=== PATIENT | male | born 1950 | race Caucasian/White ===

== ENCOUNTER → 2017-10-28 07:17 | Outpatient (CLI) | payer OTHER, SELFPAY ==
--- NOTE | 2017-10-28 07:32 | CT_ITS ---
STUDY: CT LEFT SHOULDER REASON FOR EXAM: Male, 67 years old. Left shoulder pain. History of prior left shoulder surgeries. RADIATION DOSAGE (If Supplied By Facility): CTDIvol = ( 26.04 ) mGy, DLP = ( 1127.92 ) mGycm TECHNIQUE: The patient was scanned in a multi detector CT scanner. High resolution transaxial imaging was performed without and with the administration of intravenous contrast material. Sagittal and coronal images were reconstructed. Individualized dose optimization techniques were used for this CT. COMPARISON: None. FINDINGS: There is mild osteoarthritis of the glenohumeral articulation, with mild articular joint space narrowing and mild osteoarthritic spurring. Normal glenoid rim, neck and visualized scapula. A metallic anchor is seen in the region of the greater tuberosity of the proximal left humerus in keeping with prior rotator cuff surgery. Normal coracoid process. Normal visualized lateral clavicle. There is mild osteoarthritis with articular joint space narrowing. There is a Type II morphology (curved), with a neutral orientation. Normal visualized muscles and soft tissue structures. CT/Extremity Upper W/WO Contrast IMPRESSION: Findings suggestive of prior rotator cuff surgery. Mild degree of degenerative changes of the acromial clavicular joint and the glenohumeral joint. No mass lesion is seen. Electronically Signed: Rick Casillas MD at 13:22 EDT Tel [phone], Service support ,
[2017-10-28 08:10] LABS: CREATININE FINGERSTICK 1.1 mg/dL (0.70-1.30); EGFR FINGERSTICK > 60.0000 mL/min (>60)
== END ==
PROVIDERS: Family Provider Family Medicine; PCP Family Medicine; Visit Provider Orthopaedic Surgery
DX: M25.519 Pain in unspecified shoulder (principal)
CPT/HCPCS: 73202; Q9967

== ENCOUNTER 2018-01-04 12:00 | Outpatient (RCR) | payer OTHER, SELFPAY ==
--- NOTE | 2017-12-10 12:56 | HP.PTEVAL_ITS ---
Patient's Visit Information DARRYN ROMAN Jr. is a 67 year old M referred to Physical Therapy by JUSTIN ADAMES with a diagnosis of L shoulder arthroscopy. Date of Evaluation: 12/10/17 Physical Therapist: Mike Fung PT, - Visit Plan Frequency: 2x /Week Duration: 2 Months Plan: Follow Protocal. - Subjective Subjective: DOS: 11/26/17. DOI: 03/20/95. Pt reports while he was at work, a large piece of aluiminum fell on his L shoulder which resulted in a fractured L humerus and a cut. Pt reports over time, he has had 4 surgeries to repair this injury. Pt reports he continues to have metal shavings surface to his skin. Pt reports he has also had to have surgical decompression performed 2 times in order to aid with decreasing his pain. Pt reports he continued to work there at [employer] for 35 years. Pt reports he now works at a [employer] Pt reports since his last surgery, he is starting to feel a little better. No T or N at this time. Sleep diff secondary to pain. R hand dom. Pt reports he is unable to perform ma ny ADL's, and cant perform any overhead activity. 8/10 at rest, 10/10 at worst. - Pain L shoulder Pain Intensity (Out of 10): 8 Pain Intensity Range: 10 - Objective Neuro: B UE sensation is WNL to light touch. B bicepital reflex= 1/3. Observation: Incisions are still healing. No obvious signs of infection. ROM: R shoulder flex= 150, abd= 150, ER= 40, IR WNL; L shoulder flex= 50, abd= 30, ER= 20, IR moderately limited. MMT: R shoulder grossly 4/5 throughout while - Goals Goal 1:: Decrease L shoulder pain x 50% to aid with sleep Goal Time Frame: 6-8 Weeks Goal 2:: Increase L shoulder flex and abd ROM x 50 degrees to aid with overhead activity Goal Time Frame: 6-8 Weeks Goal 3:: Increase L shoulder strength x 1 grade to aid with RTW Goal Time Frame: 6-8 Weeks Goal 4:: I with HEP Goal Time Frame: 6-8 Weeks - Rehabilitation Potential Physical Therapy Diagnosis: L shoulder pain, weakness, and limited ROM secondary to L shoulder arthroscopy Rehabilitation Potential: Good - Anticipated Interventions Patient/Client Instruction: Educate patient on: Condition, Plan of Care For the Purpose of:: To improve self management Therapeutic Exercise to Include: Strength training, Endurance training, Postural training, Active ROM, Scapular Strength/Stabilization For the Purpose of:: To decrease pain, To increase ROM, To improve muscle performance and motor function Cryotherapy (ice pack, ice massage): Yes For the Purpose of:: To decrease pain Thank you for the opportunity to evaluate your patient. For Medicare and Medicare HMO plans, please review the plan of care and approve it. It will need to be FAXED BACK to us at [phone] for Medicare purposes. Please let me know if there are questions or concerns regarding this plan of care. Physician Signature: Date:
--- NOTE | 2018-01-13 09:42 | HP.PT.NRP ---
HP - Discharge Summary (1) - Patient Information DARRYN ROMAN Jr. was seen in my office for initial evaluation on 12/10/17. The following Plan of Care was established for this patient: Initial Frequency: 2x /Week Initial Duration: 2 Months - Anticipated Interventions Patient/Client Instruction: Educate patient on: Condition, Plan of Care For the Purpose of:: To improve self management Therapeutic Exercise to Include: Strength training, Endurance training, Postural training, Active ROM, Scapular Strength/Stabilization For the Purpose of:: To decrease pain, To increase ROM, To improve muscle performance and motor function Cryotherapy (ice pack, ice massage): Yes For the Purpose of:: To decrease pain This patient was last seen in our office . Pertinent comments regarding their Physical therapy will appear below: Pt phoned our clinic on the date of 01/05/18 to report that he has been released to return to work, and that he wanted to be discharged at that time. At this point I will be discontinuing this patient from physical therapy. I would be happy to see this patient again in the future if found appropriate by the physician. Thank you! Mike Fung, PT,
== END 2018-01-04 19:00 | disposition home or self-care (01) ==
LOC: PT 12:00
PROVIDERS: Family Provider Family Medicine; PCP Family Medicine
DX: M25.519 Pain in unspecified shoulder (principal)
CPT/HCPCS: 97110; 97162; 97530

== ENCOUNTER 2018-08-24 13:47 | Observation (INO) | payer MEDICARE, OTHER, SELFPAY ==
[2018-08-24] VITALS (12 sets, daily range): BP systolic 133–168; BP diastolic 74–98; PULSE 70–83; RESP 9–18; TEMP 36.5–37; O2SAT 92–100; BMI 23.7; BMI 22.9
--- NOTE | 2018-08-24 13:59 | CT_ITS ---
STUDY: CT BRAIN WITHOUT CONTRAST REASON FOR EXAM: Male, 68 years old. Near syncope RADIATION DOSAGE (If Supplied By Facility): CTDIvol = ( 44.99 ) mGy, DLP = ( 812.98 ) mGycm TECHNIQUE: Transaxial CT imaging of the brain was performed without administration of intravenous contrast material. Individualized dose optimization techniques were used for this CT. COMPARISON: None. FINDINGS: There is no acute bleed or infarct. There are normal white matter tracts. The ventricles are normal in configuration. There is no hydrocephalus. The visualized paranasal sinuses are clear. The mastoid air cells are well aerated. There is no skull fracture. CT/Brain/Head without Contrast IMPRESSION: No acute intracranial abnormality. Electronically Signed: Flaco Kraft, at 14:29 EDT Tel , Service support ,
--- NOTE | 2018-08-24 14:00 | RAD_ITS ---
STUDY: X-RAY CHEST REASON FOR EXAM: Male, 68 years old. Syncope. Dyspnea. TECHNIQUE: Single AP portable view of the chest. COMPARISON: Comparison is made with prior study dated February 03, 2014. FINDINGS: EKG electrodes are seen. There now is evidence of bibasilar pulmonary infiltrates slightly worse on the left side. There is no demonstrated pleural abnormality. Normal size heart. Normal mediastinum and bart. Normal visualized pulmonary arteries. There is atherosclerotic tortuosity of the aortic arch and descending thoracic aorta. There are degenerative changes of the visualized thoracic spine. Prior fusion in the lower cervical spine. Degenerative changes of the thoracic spine. There is no demonstrated abnormality of the visualized soft tissue structures of the upper abdomen. RAD/Chest 1 View (Portable) IMPRESSION: Bibasilar infiltrates. Follow-up is recommended. Electronically Signed: Rikc Casillas, at 14:38 EDT , Service support ,
--- NOTE | 2018-08-24 14:00 | EKG12_ITS ---
Test Reason : SYNCOPE Blood Pressure : / mmHG Vent. Rate : 077 BPM Atrial Rate : 077 BPM P-R Int : 164 ms QRS Dur : 088 ms QT Int : 380 ms P-R-T Axes : 079 071 083 degrees QTc Int : 430 ms Normal sinus rhythm Normal ECG Confirmed by JOSE MIGUEL PRICE ([id number]), publication editor ZENAIDA LAMAS ([id number]) on 08/26/2018 1:42:28 PM Referred By: BROOKE Confirmed By:JOSE MIGUEL PRICE
[2018-08-24 14:14] LABS: Absolute Lymphocyte Count 2.65 X10^3/ul (0.83-4.51); Absolute Neutrophil Count 3.9 X10^3/uL (2.0-7.7); Basophil# 0.05 X10^3/uL; Basophil% 0.7 % (0-1); Eosinophil# 0.28 X10^3/uL; Eosinophils% 3.7 % (0-5); Hemoglobin 15.5 g/dl (13.0-16.5); Lymphocyte # 2.65 X10^3/ul (4.0); Lymphocyte % 34.9 % (19-41); Mean Corp Hgb Conc 34.4 g/gl (32-36); Mean Corpuscular Hgb 34.3 pg (27.0-32.0); Mean Corpuscular Volume 99.6 fL (80-94); Mean Platelet Vol. 9.3 fl (6.2-12.0); Monocyte# 0.74 X10^3/uL; Monocyte% 9.7 % (0-10); Neutrophil # 3.85 X10^3/uL (2.7-7.7); Neutrophil % 50.7 % (47-70); Platelet Count 274 K/mm3 (150-450); RBC Distribution Width CV 12.8 % (11.6-14.6); RBC Distribution Width SD 46.1 fl (35.1-43.9); Red Blood Count 4.52 M/mm3 (4.6-6.2); White Blood Count 7.6 K/mm3 (4.4-11.0)
[2018-08-24 14:18] LABS: POSITIVE COUNT NO; POSITIVE DIFFERENTIAL NO; POSITIVE MORPHOLOGY NO
[2018-08-24 14:30] LABS: Anion Gap 9 (5-15); BUN 16 mg/dL (7-18); BUN/Creat Ratio 10.3 RATIO (10-20); Calcium,Total 9.1 mg/dL (8.5-10.1); Chloride 106 mmol/L (98-107); Creatinine, Serum 1.55 mg/dL (0.70-1.30); EST Glomerular Filtration Rate 48 mL/min (>60); Est Glom Filt Rate - Afr Amer 58 mL/min (>60); Estimated Creatinine Clearance 45.35 ml/min; Glucose 90 mg/dL (74-106); Potassium 4.8 mmol/L (3.5-5.1); Sodium Level 138 mmol/L (136-145)
[2018-08-24] MEDS: Ipratropium/Albuterol Sulfate 3 ML AMPUL.NEB INHALATION ×3 (14:37→23:55)
[2018-08-24] MEDS: 0.9% Normal Saline 1,000 ML 150 ML IV (14:50)
--- NOTE | 2018-08-24 15:57 | NURSING ---
DR REDD FOR DR CASTREJON
--- NOTE | 2018-08-24 15:59 | ED.VISSUMM ---
- ER Visit Summary Date of Service: 08/24/18 Chief Complaint: [Syncope and confusion] History of Present Illness: The patient is a 68 M [episode that occurred while at work today. 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 EMS was called this patient was disoriented and confused. EMS checked the blood sugar noted that it was 59 and given glucose. On arrival patient is unsure of the events that took place. He is able to tell me that he did not eat breakfast and just drink some tea which is not unusual for him. Patient does describe a mild headache. He has had a mild cough that has been chronic and some white phlegm production but no fevers. Patient denies any chest pain. Patient does have a history of COPD and does use nebulizer on a regular basis. Patient does not use home O2.] Physical Examination: [HEENT-PERRLA, EOMI. Cranial nerves II through XII grossly intact. TMs clear. Mucous membranes moist. No adenopathy. No external evidence of trauma to his head. No C-spine tenderness on palpation. Cardiovascular-regular rate and rhythm without murmur or ectopy Lungs-good aeration bilaterally. Patient has some faint expiratory wheezes. No accessory muscle use or retractions. Neuro fljy-bbpyhp-sq-nose and heel lima testing within normal limits, negative Romberg, negative , Fundi benign Abdomen-normoactive bowel sounds, soft, nontender, no rebound or rigidity, no peritoneal signs. Extremities-intact ?4, normal range of motion, normal pulses, atraumatic] Test Results: [EKG obtained shows sinus rhythm with a ventricular rate 77 bpm with no acute ST segment changes. CBC with differential is normal. Chemistries unremarkable. Troponin is less than 0.015. Alcohol was negative. ABG was unremarkable. Chest x-ray showed bibasilar infiltrates. CT scan of the brain without contrast showed nothing acute.] Emergency Department Course and Treatment: [Patient was kept on monitor and reevaluated at 1545 patient is still somewhat confused and cannot tell me exactly what happened. Patient was asking where he is currently. 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 At this point etiology of his confusion is unclear.] Treatment Plan: [Admit] Disposition: [Admit] Impression: [Syncope Confusion] This note was generated with Wal[employer] dictation software. It may contain incorrect words, spelling, and punctuation that were not noted in review of the chart prior to signing ED Disposition - Plan for ED Patient: Referrals: Cherelle Cutler DO [Primary Care Provider] -
--- NOTE | 2018-08-24 15:59 | NURSING ---
PCU OBS ASHELFAH SYNCOPE, CONFUSION, HYPOGLYCEMIA
[2018-08-24 16:13] LABS: Blood Gas Specimen Type ART
[2018-08-24 16:14] LABS: O2 Delivery Device Room Air; SITE L BRACHIAL; Time Given 1430
[2018-08-24 16:15] LABS: Base Excess -4 mmol/L (-2 to +2); Bicarbonate 20.3 mmol/L (22-26); PO2 73 mmHG (75-100); SO2 95 % (95-99); Total Carbon Dioxide 21 mmol/L; pCO2 30.3 mmHg (35-45); pH 7.43 (7.35-7.45)
--- NOTE | 2018-08-24 16:15 | PCM.HP.STD ---
Problem List (1) Hyperlipidemia Status: Chronic (2) History of heart valve replacement Status: Chronic (3) HTN (hypertension) Status: Chronic (4) COLD (chronic obstructive lung disease) Status: Chronic (5) Benign essential HTN Status: Chronic History of Present Illness Date of Admission: 08/24/18 Chief Complaint: Syncope, confusion. The patient is a 68 year old M with past medical history as mentioned above presented to the emergency room because of syncope and confusion. At this time, patient is alert and oriented x3 but he is very slow in responding to questions. He does not remember what happened but he mentioned that he felt dizzy and then he woke up in the emergency department. 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 EMS was called and reportedly, patient was confused and disoriented. He was found to have blood sugar of 59 mg/dL. He was given 15 g of oral glucose. Apart from mild headache, patient denies any other symptoms. He denied chest pain or shortness of breath. He denied cough or sputum production. He denied abdominal pain, nausea or vomiting. He denied focal arm or leg weakness. He had a history of hypertension which seems to be controlled with metoprolol and lisinopril. He has history of valve replacement as a child long time ago and is not sure which valve was replaced and it is probably a bioprosthetic valve. He has history of COPD and he has been on albuterol as well as DuoNeb nebulizer treatment at home and also has been on Symbicort. He never been on oxygen at home. Patient is a heavy smoker and he drinks alcohol almost every day. In the emergency department, his blood pressure was slightly elevated, other vital signs were stable. His routine blood work was remarkable for creatinine of 1.55 which is chronic, otherwise normal. Blood glucose was 90 mg/dL in the emergency department. EKG revealed normal sinus rhythm, normal MN interval, normal QRS, normal QTC and no acute ischemic changes. Troponin is negative. Blood alcohol level was 10. CT scan brain showed no acute findings. Chest x-ray reviewed by myself and I did not see any acute infiltrate or consolidation. Chest x-ray was read by radiology as bilateral basilar infiltrate. I doubt pneumonia. He is being admitted for syncope likely caused by hypoglycemia. Past Medical History Past Medical History (Chronic Problems): Chronic Problems Hyperlipidemia (Chronic) History of heart valve replacement (Chronic) Tobacco dependence syndrome (Chronic) HTN (hypertension) (Chronic) COLD (chronic obstructive lung disease) (Chronic) Benign essential HTN (Chronic) Allergies azithromycin [From Zithromax] Allergy (Verified 12/23/14 10:25) Swelling Penicillins Allergy (Verified 12/23/14 10:25) Hives shellfish derived Allergy (Verified 12/23/14 10:25) Hives venom-honey bee [bee venom (honey bee)] Allergy (Verified 12/23/14 10:25) Hives chocolate flavor Adverse Reaction (Verified 12/23/14 10:25) Diarrhea Home Medications: Ambulatory Orders Medication Instructions Recorded Aspirin [Aspirin, Baby] 81 mg PO DAILY@0800 02/03/14 Budesonide/Formoterol 160/4.5 2 puff PO BID 02/03/14 [Symbicort 160/4.5 Mcg Inhaler (SP)] Ipratropium/Albuterol Sulfate 3 ml INHALATION Q4H.RT 02/03/14 [Duoneb] Pravastatin [Pravachol] 10 mg PO QHS 02/03/14 Albuterol Sulfate [Ventolin Hfa] 2 puff INHALATION Q4H PRN PRN 08/24/18 Apixaban [Eliquis] 5 mg PO BID 08/24/18 Lisinopril 20 mg PO DAILY 08/24/18 Metoprolol Tartrate 50 mg PO DAILY 08/24/18 Surgical History: - - Valvular replacement 1959--[facility]outh at [facility], unclear valve type, BL inguinal hernia repair, Appendectomy, R arm/wrist surgery, Carpal tunnel surgery BL. Smoking Status: Current every day smoker Tobacco Use: Cigarettes Alcohol: Heavy Drugs: None - *Family History Maternal History Items: Heart Disease - Mother w/ CAD s/p CABG x 4, CVA., Hypertension, Stroke Paternal History Items: No pertinent history Review of Systems Constitutional: Reports: Weakness. Denies: Anorexia, Chills, Fever Eyes: Denies: Blurred vision, Double vision, Drainage, Redness HEENT: Reports: Head Aches. Denies: Difficulty Hearing, Ear Pain, Eye Pain, Nasal Congestion, Sore Throat Cardiovascular: Denies: Chest Pain, Claudication, Chest Pressure, Chest Tightness, Palpitations, Syncope Respiratory: Denies: Cough, Hemoptysis, Pleuritic Pain, Shortness of Breath, Shortness of breath at rest, Sputum production, Wheezing Gastrointestinal: Denies: Abdominal Pain, Constipation, Diarrhea, Nausea, Vomiting Genitourinary: Denies: Dysuria, Frequency, Hematuria, Hesitancy Musculoskeletal: Denies: Arm Pain, Back Pain, Foot Pain Skin: Denies: Dryness, Rash Neurological: Reports: Confusion, Headaches. Denies: Balance problems, Double vision, Slurred speech, Focal weakness, Incoordination, Numbness Psychiatric: Denies: Anxiety, Depression Endocrine: Denies: Change in Body Habitus, Polydipsia, Polyuria VTE Information - Inpt Only VTE Present on Admission: No VTE Mechan Device Prophylaxis: None VTE Pharm Prophylaxis ordered?: No - Physical Exam General: Alert, Oriented x3, Cooperative, No apparent distress, - - Very slow response to questions. HEENT: Atraumatic, PERRLA, EOMI, Normocephalic Oral: Moist Mucosa, No Gingival or Mucosal Lesions/ Ulcerations Neck: Supple, No JVD, Negative Carotid Bruits, Trachea Midline, Thyroid Normal Size and Texture Lungs: Clear to auscultation, Normal air movement, No rhonchi, No wheeze, No rales, Diminished Cardiovascular: Regular rate, Regular Rhythm, Normal S1, Normal S2, No murmurs, PMI Normal Abdomen: Bowel Sounds Present, Soft, Non Tender, Non-Distended, No Hepato-splenomegaly Extremities: No clubbing, No cyanosis, No edema Skin: No rashes, No breakdown Lymphatic: No Cervical, Supraclavicular, or Inguinal Adenopathy Neurological: Cranial nerves II-XII grossly intact, Motor Exam 5/5 strength throughout Psych/Mental Status: Normal Affect, Flat Affect, Alert and oriented to time, place, person, mood and affect Vital Signs Temp Pulse Resp BP Pulse Ox 98.6 F 75 18 149/82 H 98 08/24/18 13:48 08/24/18 15:14 08/24/18 15:14 08/24/18 15:14 08/24/18 15:14 Oxygen Delivery Method Room Air Weight: 156 lb 1.396 oz Body Mass Index (BMI) 23.7 Laboratory Tests Past 24 Hrs 08/24/18 08/24/18 08/24/18 14:00 14:00 14:00 WBC 7.6 RBC 4.52 L Hgb 15.5 Hct 45.0 MCV 99.6 H MCH 34.3 H MCHC 34.4 RDW 12.8 RDW Differential 46.1 H Plt Count 274 MPV 9.3 Immature Gran % (Auto) 0.300 Neut % (Auto) 50.7 Lymph % (Auto) 34.9 [place] % (Auto) 9.7 Eos % (Auto) 3.7 Baso % (Auto) 0.7 Absolute Neuts (auto) 3.9 Absolute Lymphs (auto) 2.65 Total Counted Not Reportable pH Bicarbonate Actual POC Total CO2 Base Excess O2 Saturation ABG pCO2 ABG pO2 Sodium 138 Potassium 4.8 Chloride 106 Carbon Dioxide 23.0 Anion Gap 9 BUN 16 Creatinine 1.55 H Estim Creat Clear Calc 45.35 Est GFR (MDRD) Af Amer 58 L Est GFR (MDRD) Non-Af 48 L BUN/Creatinine Ratio 10.3 Glucose 90 Calcium 9.1 Troponin I < 0.015 Ethyl Alcohol 10.0 08/24/18 14:20 WBC RBC Hgb Hct MCV MCH MCHC RDW RDW Differential Plt Count MPV Immature Gran % (Auto) Neut % (Auto) Lymph % (Auto) [place] % (Auto) Eos % (Auto) Baso % (Auto) Absolute Neuts (auto) Absolute Lymphs (auto) Total Counted pH Pending Bicarbonate Actual Pending POC Total CO2 Pending Base Excess Pending O2 Saturation Pending ABG pCO2 Pending ABG pO2 Pending Sodium Potassium Chloride Carbon Dioxide Anion Gap BUN Creatinine Estim Creat Clear Calc Est GFR (MDRD) Af Amer Est GFR (MDRD) Non-Af BUN/Creatinine Ratio Glucose Calcium Troponin I Ethyl Alcohol Clinical Impression(s) from Imaging Studies Brain CT 08/24/18 13:59 IMPRESSION: No acute intracranial abnormality. Electronically Signed: Flaco Kraft, at 14:29 EDT Tel , Service support , Chest X-Ray 08/24/18 14:00 IMPRESSION: Bibasilar infiltrates. Follow-up is recommended. Electronically Signed: Rick Casillas, at 14:38 EDT , Service support , Assessment/Plan This is a 68 years old male patient syncopal episode, found to have blood sugar of 59 mg/dL at the scene and he is being admitted for evaluation and treatment. #1 syncopal episode: At this time, it is probably due to hypoglycemia. Patient used to not take breakfast in the morning. He is not diabetic. He denies any symptoms suggestive of stroke. Reportedly, patient was confused upon arrival to ER. When I saw the patient, he was alert and oriented x3 but he was very slow in response to questions. EKG revealed normal sinus rhythm, no evidence of acute ischemic changes or cardiac arrhythmias. Patient's mentioned that he had history of seizure related to stress long time ago but he never been on medication for seizure and he did not have a seizure for more than [address] scan brain showed no acute findings. Chest x-ray reviewed, doubt pneumonia. He has been afebrile, no leukocytosis. Plan: Admit to PCU, cardiac monitoring, IV fluids with D5 normal saline, Accu-Cheks every 6 hours, hemoglobin A1c, repeat CBC and BMP tomorrow morning. At this time, no indication for further work-up as this syncopal episode likely due to hypoglycemia. #2 encephalopathy: Initially, patient was confused. When I examined the patient, he was alert and related x3 but he was very slow in response to questions. CT scan brain showed no acute findings. He has no focal deficit. If the patient continued to be very slow in response to questions and lethargic, MRI brain should be considered. #3 COPD: Clinically stable, pulse ox is maintained on room air. Plan for albuterol as needed, DuoNeb every 6 hours, continue Symbicort. #4 hypertension: Blood pressure elevated, continue lisinopril and metoprolol. #5 history of blood clots: is not sure if the patient has PEs or DVTs. Plan to continue Eliquis for now. #6 history of heart valve replacement: Again, they are not sure which valve was replaced and it is probably bioprosthetic valve. #7 hyperlipidemia: Continue statins. #8 alcohol abuse: Blood alcohol level was 10. No evidence of acute alcohol withdrawal. #9 DVT prophylaxis: Continue Eliquis. This note was generated with Sol[employer]ice[employer] software. It may contain incorrect words, spelling, and punctuation that were not noted in checking the note before signing. Code Visit OBSV E&M: 59302 Initial observation care L3
--- NOTE | 2018-08-24 16:23 | NURSING ---
NEW ROOM 111
[2018-08-24] MEDS: Dextrose 5%/0.9% NaCl 1,000 ML 100 ML IV (17:36)
[2018-08-24 17:40] LABS: Hemoglobin A1c 5.4 % (4.2-6.3)
[2018-08-24 17:51] LABS: Bedside Glucose 118 mg/dL (70-110)
[2018-08-24] MEDS: APIXABAN 5 MG TABLET PO (21:58)
[2018-08-24] MEDS: Pravastatin 20 MG Tablet 10 MG PO (21:58)
[2018-08-24 22:31] LABS: Bedside Glucose 125 mg/dL (70-110)
--- NOTE | 2018-08-24 23:56 | CPS ---
patient requested routine aerosol at time of visit due to shortness of breath.
[2018-08-25] VITALS (8 sets, daily range): BP systolic 123–133; BP diastolic 73–81; PULSE 68–88; RESP 16–18; TEMP 36.6–37; O2SAT 94–96
[2018-08-25] MEDS: Dextrose 5%/0.9% NaCl 1,000 ML 100 ML IV (04:15)
[2018-08-25 06:25] LABS: Bedside Glucose 92 mg/dL (70-110)
[2018-08-25 06:37] LABS: Absolute Neutrophil Count 2.9 X10^3/uL (2.0-7.7); Basophil# 0.03 X10^3/uL; Basophil% 0.5 % (0-1); Eosinophil# 0.25 X10^3/uL; Eosinophils% 4.2 % (0-5); Hematocrit 38.7 % (40-54); Hemoglobin 13.1 g/dl (13.0-16.5); Lymphocyte % 37.2 % (19-41); Mean Corp Hgb Conc 33.9 g/gl (32-36); Mean Corpuscular Hgb 34.4 pg (27.0-32.0); Mean Corpuscular Volume 101.6 fL (80-94); Mean Platelet Vol. 9.5 fl (6.2-12.0); Monocyte# 0.53 X10^3/uL; Neutrophil # 2.89 X10^3/uL (2.7-7.7); Neutrophil % 48.9 % (47-70); Platelet Count 232 K/mm3 (150-450); RBC Distribution Width CV 12.9 % (11.6-14.6); RBC Distribution Width SD 46.5 fl (35.1-43.9); Red Blood Count 3.81 M/mm3 (4.6-6.2); White Blood Count 5.9 K/mm3 (4.4-11.0)
[2018-08-25 06:40] LABS: POSITIVE COUNT NO; POSITIVE DIFFERENTIAL NO; POSITIVE MORPHOLOGY NO
[2018-08-25 06:41] LABS: Anion Gap 7 (5-15); BUN 14 mg/dL (7-18); BUN/Creat Ratio 10.5 RATIO (10-20); Calcium,Total 7.8 mg/dL (8.5-10.1); Chloride 112 mmol/L (98-107); Creatinine, Serum 1.33 mg/dL (0.70-1.30); EST Glomerular Filtration Rate 57 mL/min (>60); Est Glom Filt Rate - Afr Amer 69 mL/min (>60); Estimated Creatinine Clearance 52.86 ml/min; Glucose 92 mg/dL (74-106); Potassium 3.9 mmol/L (3.5-5.1); Sodium Level 142 mmol/L (136-145)
[2018-08-25] MEDS: Ipratropium/Albuterol Sulfate 3 ML AMPUL.NEB INHALATION (06:55)
[2018-08-25] MEDS: Aspirin 81 MG TAB.CHEW PO (08:32)
[2018-08-25] MEDS: APIXABAN 5 MG TABLET PO (09:30)
[2018-08-25] MEDS: Metoprolol Tartrate 50 MG Tablet PO (09:31)
[2018-08-25] MEDS: Lisinopril 20 MG Tablet PO (09:31)
[2018-08-25 10:00] LABS: Bedside Glucose 84 mg/dL (70-110)
[2018-08-25 10:25] LABS: Bedside Glucose 108 mg/dL (70-110)
--- NOTE | 2018-08-25 10:46 | DCINST_ITS ---
You will use the following diet at home:: Cardiac Your food should be the consistency of: Regular Your liquids should be the consistency of: Regular/Thin Discharge Activity: Return to Normal Activity Weight Bearing Status: Weight bearing as tolerated Instructions: Hypoglycemia (Low Blood Sugar), What Is Syncope? Additional Instructions: counseled to eat regularly and keep sugary snacks by him if he feels lightheaded Allergies/Adverse Reactions: Allergies azithromycin [From Zithromax] Allergy (Verified 12/23/14 10:25) Swelling Penicillins Allergy (Verified 12/23/14 10:25) Hives shellfish derived Allergy (Verified 12/23/14 10:25) Hives venom-honey bee [bee venom (honey bee)] Allergy (Verified 12/23/14 10:25) Hives chocolate flavor Adverse Reaction (Verified 12/23/14 10:25) Diarrhea Medications to take at Discharge Aspirin [Aspirin, Baby] 81 mg PO DAILY@0800 02/03/14 Budesonide/Formoterol 160/4.5 [Symbicort 160/4.5 Mcg Inhaler (SP)] 2 puff PO BID 02/03/14 Ipratropium/Albuterol Sulfate [Duoneb] 3 ml INHALATION Q4H.RT 02/03/14 Pravastatin [Pravachol] 10 mg PO QHS 02/03/14 Albuterol Sulfate [Ventolin Hfa] 2 puff INHALATION Q4H PRN PRN 08/24/18 Apixaban [Eliquis] 5 mg PO BID 08/24/18 Lisinopril 20 mg PO DAILY 08/24/18 Metoprolol Tartrate 50 mg PO DAILY 08/24/18 Primary Care Physician: Cherelle Cutler DO [Primary Care Provider] - Please follow up with your Primary Care Physician in: one week Test Results: Test results from this visit will be discussed in further detail at your follow- up appointment, if applicable. Proposed Discharge Date: 08/25/18
--- NOTE | 2018-08-25 10:52 | DS.PCM_ITS ---
Discharge Date and Diagnosis Date of Admission: 08/24/18 Date of Discharge: 08/25/18 - Primary Discharge Diagnosis syncope hypoglycemia - Secondary Discharge Diagnosis Chronic Problems Hyperlipidemia (Chronic) History of heart valve replacement (Chronic) Tobacco dependence syndrome (Chronic) HTN (hypertension) (Chronic) COLD (chronic obstructive lung disease) (Chronic) Benign essential HTN (Chronic) Hospital Course and Treatment Imaging Results: Diagnostic Data Brain CT 08/24/18 13:59 IMPRESSION: No acute intracranial abnormality. Electronically Signed: Flaco Swapnil, at 14:29 EDT Tel , Service support , Chest X-Ray 08/24/18 14:00 IMPRESSION: Bibasilar infiltrates. Follow-up is recommended. Electronically Signed: Rick Sonja, at 14:38 EDT , Service support , Operations: None Procedures: None Summary of Care Provided: The patient is a 68 year old M with a past medical history as listed. He was admitted through the ED on 08/24/2018 with a complaint of syncope and confusion. 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 EMS found him confused and disoriented and was found to have a blood sugar of 59 mg per DL. He was given 15 g of glucose. Review of systems is otherwise negative. Labs are within normal limits and EKG showed no acute ST changes. Troponin was negative. CT brain was also negative and chest x-ray was read as bilateral basilar infiltrates the patient was totally asymptomatic. Patient was admitted and ma naged for syncope due to hypoglycemia. He was given D5 normal saline infusion. Patient subsequently admitted to been under a lot of stress as he said he had PTSD. He also had severe insomnia and usually did not eat before going to work because he felt groggy after eating on account of his insomnia. Patient therefore said he had not been eating well and had eaten on the morning of him passing out. Patient remained stable and was able to eat well was in the hospital. He was discharged home on 08/25/2018 and counseled to be sure he ate a good breakfast lunch and dinner and also to keep sugary snacks by him in case he felt lightheaded. He was also counseled to follow-up with a psychiatrist and asked for referral from his primary care doctor to handle his PTSD. He was discharged home on 08/25/2018. Patient seen and examined prior to discharge. He had no complaints. Review of systems is otherwise negative. Labs and vitals reviewed. Home medications reviewed and reconciled. o/e: Vital Signs Height 5 ft 8.11 in Weight: 151 lb 7.321 oz Weight in Pounds 151.5 lbs Pulse Ox 94 Temperature 97.9 F Pulse Rate 68 Respiratory Rate 16 Blood Pressure 133/81 Blood Pressure Position Supine [] General: Alert, Oriented x3, Cooperative, No apparent distress HEENT: Atraumatic, PERRLA, EOMI, Normocephalic Oral: Moist Mucosa, No Gingival or Mucosal Lesions/ Ulcerations Neck: Supple, No JVD, Negative Carotid Bruits, Trachea Midline, Lungs: Clear to auscultation, Normal air movement, No rhonchi, No wheeze, No rales, Diminished Cardiovascular: Regular rate, Regular Rhythm, Normal S1, Normal S2, No murmurs, PMI Normal Abdomen: Bowel Sounds Present, Soft, Non Tender, Non-Distended, No Hepato- splenomegaly Extremities: No clubbing, No cyanosis, No edema Skin: No rashes, No breakdown Lymphatic: No Cervical, Supraclavicular, or Inguinal Adenopathy Neurological: Cranial nerves II-XII grossly intact, Motor Exam 5/5 strength throughout Psych/Mental Status: Flat Affect, Alert and oriented to time, place, person, mood and affect Plan as above. - Physical Exam Vital Signs Temp Pulse Resp BP Pulse Ox 97.9 F 74 16 133/81 H 94 08/25/18 09:24 08/25/18 09:31 08/25/18 09:24 08/25/18 09:31 08/25/18 09:24 Oxygen Delivery Method Room Air Weight: 151 lb 7.321 oz Body Mass Index (BMI) 22.9 Intake and Output for Last 24 Hours 08/23/18 08/24/18 08/25/18 23:59 23:59 23:59 Intake Total 1732 / 1732 Output Total 300 / 300 1400 / 1400 Balance -300 / -300 332 / 332 Laboratory Tests Past 24 Hrs 08/24/18 08/24/18 08/24/18 14:00 14:00 14:00 WBC 7.6 RBC 4.52 L Hgb 15.5 Hct 45.0 MCV 99.6 H MCH 34.3 H MCHC 34.4 RDW 12.8 RDW Differential 46.1 H Plt Count 274 MPV 9.3 Immature Gran % (Auto) 0.300 Neut % (Auto) 50.7 Lymph % (Auto) 34.9 Banner % (Auto) 9.7 Eos % (Auto) 3.7 Baso % (Auto) 0.7 Absolute Neuts (auto) 3.9 Absolute Lymphs (auto) 2.65 Total Counted Not Reportable Specimen Type Sample Site pH Bicarbonate Actual POC Total CO2 Base Excess O2 Saturation ABG pCO2 ABG pO2 O2 Delivery Device Blood Gas Notified Whom Blood Gas Notified Time Sodium 138 Potassium 4.8 Chloride 106 Carbon Dioxide 23.0 Anion Gap 9 BUN 16 Creatinine 1.55 H Estim Creat Clear Calc 45.35 Est GFR (MDRD) Af Amer 58 L Est GFR (MDRD) Non-Af 48 L BUN/Creatinine Ratio 10.3 Glucose 90 Hemoglobin A1c Calcium 9.1 Troponin I < 0.015 Ethyl Alcohol 10.0 08/24/18 08/24/18 08/25/18 14:00 14:20 06:05 WBC 5.9 RBC 3.81 L Hgb 13.1 Hct 38.7 L MCV 101.6 H MCH 34.4 H MCHC 33.9 RDW 12.9 RDW Differential 46.5 H Plt Count 232 MPV 9.5 Immature Gran % (Auto) 0.200 Neut % (Auto) 48.9 Lymph % (Auto) 37.2 Banner % (Auto) 9.0 Eos % (Auto) 4.2 Baso % (Auto) 0.5 Absolute Neuts (auto) 2.9 Absolute Lymphs (auto) 2.20 Total Counted Not Reportable Specimen Type ART Sample Site L BRACHIAL pH 7.43 Bicarbonate Actual 20.3 L POC Total CO2 21 Base Excess -4 L O2 Saturation 95 ABG pCO2 30.3 L ABG pO2 73 L O2 Delivery Device Room Air Blood Gas Notified Whom ED MD Blood Gas Notified Time 1430 Sodium Potassium Chloride Carbon Dioxide Anion Gap BUN Creatinine Estim Creat Clear Calc Est GFR (MDRD) Af Amer Est GFR (MDRD) Non-Af BUN/Creatinine Ratio Glucose Hemoglobin A1c 5.4 Calcium Troponin I Ethyl Alcohol 08/25/18 06:05 WBC RBC Hgb Hct MCV MCH MCHC RDW RDW Differential Plt Count MPV Immature Gran % (Auto) Neut % (Auto) Lymph % (Auto) Banner % (Auto) Eos % (Auto) Baso % (Auto) Absolute Neuts (auto) Absolute Lymphs (auto) Total Counted Specimen Type Sample Site pH Bicarbonate Actual POC Total CO2 Base Excess O2 Saturation ABG pCO2 ABG pO2 O2 Delivery Device Blood Gas Notified Whom Blood Gas Notified Time Sodium 142 Potassium 3.9 Chloride 112 H Carbon Dioxide 23.0 Anion Gap 7 BUN 14 Creatinine 1.33 H Estim Creat Clear Calc 52.86 Est GFR (MDRD) Af Amer 69 Est GFR (MDRD) Non-Af 57 L BUN/Creatinine Ratio 10.5 Glucose 92 Hemoglobin A1c Calcium 7.8 L Troponin I Ethyl Alcohol POC Glucose 08/25/18 08/25/18 08/24/18 10:17 04:13 22:03 POC Glucose 108 92 125 H 08/24/18 08/24/18 17:43 13:50 POC Glucose 118 H 84 Discharge Diet: Low fat/ Low Cholesterol Discharge Activity: Return to Normal Activity Weight Bearing Status: Weight bearing as tolerated Call your doctor if you observe: Dizziness Home Medications: Medications to take at Discharge Aspirin [Aspirin, Baby] 81 mg PO DAILY@0800 02/03/14 Budesonide/Formoterol 160/4.5 [Symbicort 160/4.5 Mcg Inhaler (SP)] 2 puff PO BID 02/03/14 Ipratropium/Albuterol Sulfate [Duoneb] 3 ml INHALATION Q4H.RT 02/03/14 Pravastatin [Pravachol] 10 mg PO QHS 02/03/14 Albuterol Sulfate [Ventolin Hfa] 2 puff INHALATION Q4H PRN PRN 08/24/18 Apixaban [Eliquis] 5 mg PO BID 08/24/18 Lisinopril 20 mg PO DAILY 08/24/18 Metoprolol Tartrate 50 mg PO DAILY 08/24/18 Primary Care Physician: Cherelle Cutler DO [Primary Care Provider] - Please follow up with your Primary Care Physician in: one week Patient Instructions: Hypoglycemia (Low Blood Sugar), What Is Syncope? Disposition: Home Minutes spent on discharge:: 35 Patient Condition:: Stable Medical Necessity - Tobacco Use Smoking Status: Current every day smoker Tobacco Use: Cigarettes Meaningful Use Info Meaningful Use Diagnoses (Choose all that apply): None applicable Code Visit OBSV E&M: 17930 Observation care discharge
== END 2018-08-25 10:52 | disposition home or self-care (01) ==
LOC: ED 14:58 → PCU 16:23
PROVIDERS: Admitting Provider Hospitalist; Emergency Provider Emergency Medicine; Family Provider Family Medicine; PCP Family Medicine; Visit Provider Student in an Organized Health Care Education/Training Program
DX: R55 Syncope and collapse (principal); I10 Essential (primary) hypertension; E78.5 Hyperlipidemia, unspecified; J44.9 Chronic obstructive pulmonary disease, unspecified; E16.2 Hypoglycemia, unspecified; F10.10 Alcohol abuse, uncomplicated; F43.10 Post-traumatic stress disorder, unspecified; I25.10 Atherosclerotic heart disease of native coronary artery without angina pectoris; F17.210 Nicotine dependence, cigarettes, uncomplicated; Z79.899 Other long term (current) drug therapy; Z95.2 Presence of prosthetic heart valve; Z79.01 Long term (current) use of anticoagulants; Z79.82 Long term (current) use of aspirin; Z79.51 Long term (current) use of inhaled steroids; Z86.718 Personal history of other venous thrombosis and embolism; Y90.0 Blood alcohol level of less than 20 mg/100 ml
CPT/HCPCS: 36415; 36600; 70450; 71045; 80048; 80320; 82803; 82962; 83036; 84484; 85025; 93005; 94640; 96360; 96361; 97166; 99218; 99285; 99406; A4216; G0378; G0480

== ENCOUNTER 2019-06-24 12:30 | Outpatient (RCR) | payer OTHER, MEDICARE, SELFPAY ==
[2019-02-07 15:37] VITALS: BMI 23.7
--- NOTE | 2019-02-14 13:18 | HP.PTEVAL_ITS ---
Patient's Visit Information DARRYN ROMAN is a 69 year old M referred to Physical Therapy by Clayton Root MD with a diagnosis of L TSA. Date of Evaluation: 02/10/19 Physical Therapist: Cristiano Garrison DPT - Visit Plan Frequency: 2x /Week Duration: 8 weeks Plan: Start with Phase I protocol, elbow ROM. Pt. to progress per protocol. - Subjective Findings: Pt. is here today for his initial evaluationn with diagnois of L reverse TSA. DOS: 01/31/19. Pt. has a history of 4 previous shoulder surgeries. Pt. reports doing okay, but is sore as expected. Pt. is to see physician in a couple of weeks. Pt. denies N/T, no fever, no chills. Pt. is wearing sling, no adductor pad. pt. has been taking sling off at home and flexion/extending elbow. Pt. reports doing pendulums as well. Pt. works at local [employer], mostly [employer] work, but would like to get back to this [employer]. - Pain L shoulder Pain Intensity (Out of 10): 3 Pain Intensity Range: 1, 5 - Objective POSTURE: Pt. has L arm in guarded posture with sligth anterior positoned L shoulder. Pt. has normal healing incision, no sigs of infection,. PALPATION: Pt . has no signs of infection. Pt. has normal sensation, normal healing incision. NEURO: normal throughotu B UEs. ROM: Pt. has full passive and active elbow ROM of LUE. L shoulder- flexion 88deg, abd 70deg, ER 10deg. Pt. had empty end feel, slight tightness. MIld increase in symptoms with end range stretching. MMT: did not test this date. - Goals Goal 1:: Pt. to be I with HEP. Goal Time Frame: 4-6 Weeks Goal 2:: Pt. to sleep throughout the night withotu increase in L shoulder pain. Goal Time Frame: 4-6 Weeks Goal 3:: Pt. to have full L shoulder ROM without increase in symptoms. Goal Time Frame: 2-4 Weeks Goal 4:: Pt. to have increased LUE strength to 4/5 throughout without increase insymptoms. Goal Time Frame: 6-8 Weeks Goal 5:: Pt. to resume all work related activities without limitations. Goal Time Frame: 6-8 Weeks - Rehabilitation Potential Physical Therapy Diagnosis: Pt. has signs and symptoms consistent with L TSA DOS: 01/31/18. Pt. to progress with ROM as tolerated. Pt. to progress per protocol. Rehabilitation Potential: Excellent - Anticipated Interventions Patient/Client Instruction: Educate patient on: Condition, Plan of Care, Risk Factors, Benefits of Fitness Program For the Purpose of:: To improve decision making, To facilitate caregiver knowledge, To improve self management, To prevent re-injury, To improve ability to perform tasks related to life management, To improve tolerance to ADL's Therapeutic Exercise to Include: Strength training, Power training, Endurance training, Balance training, Coordination, Agility training, Body mechanics, Fle xibilty training, Passive ROM, Active ROM For the Purpose of:: To decrease pain, To decrease swelling/inflammation, To increase ROM, To improve nutrient delivery to tissue, To increase oxygenation perfusion, To improve muscle performance and motor function, To improve ability to perform ADL's, To increase tolerance to activity/condition/position, To improve health of tissue, To decrease soft tissue restriction, To increase flexibility/ROM Thank you for the opportunity to evaluate your patient. For Medicare and Medicare HMO plans, please review the plan of care and approve it. It will need to be FAXED BACK to us at [phone] for Medicare purposes. For Medicare only, by signing this I certify the plan of care. Please let me know if there are questions or concerns regarding this plan of care. Physician Signature: Date:
--- NOTE | 2019-04-07 14:26 | HP.PTREVAL ---
Clayton Root MD, It has been my pleasure to treat DARRYN ROMAN over the last 17 visits for Reverse Left TSA - 01/31/19. Please see the progress note below for an update on the physical therapy plan of care! Subjective: Pt. is here today for his check up and reassessment. Pt. reports being ~25% better overall. I reports that his ROM is improving, but is still having some trouble reaching over head and behind his back. I am still really weak as well. He reports being HEP compliant. Pt. reports no pain currently, but does ahve increased pain every once in awhile. Objective/Function: Pt. reprots continued pain with laying on his side, still having trouble lifting household objects. AAROM: with stick flexion- 90deg, abd 90deg,. PROM: flexion 130deg, abd 130deg. ER at 80deg 70deg. IR at 90deg 30deg. Pt. continues to be sore with most over head movements. Pt. reprots having anterior shoulder pain into chest (increase NW). Pt. is still painful with any cross arm movements. I would recommend that he continue with PT with focus on end range of motion attempting to achieve greatest mobility possible for him. Then progress to stability exercises allowing for return to work. Plan Plan: Requesting more visits at this point in time. Pt. needs to have been PROM and AAROM. Pt. is limited to ~40-50% of his AROM in all directions. He needs to have increased ROM alloing for basic ADLs and return to work. Pt. has initiated some isometrics, but still needs better ROM, especially with overhead motions. Goals Goal 1:: Pt. to be I with HEP. Goal Time Frame: 4-6 Weeks Goal Progress: Progressing Goal 2:: Pt. to sleep throughout the night withotu increase in L shoulder pain. Goal Time Frame: 4-6 Weeks Goal Progress: Progressing Goal 3:: Pt. to have full L shoulder ROM without increase in symptoms. Goal Time Frame: 2-4 Weeks Goal Progress: Progressing Goal 4:: Pt. to have increased LUE strength to 4/5 throughout without increase insymptoms. Goal Time Frame: 6-8 Weeks Goal Progress: Progressing Goal 5:: Pt. to resume all work related activities without limitations. Goal Time Frame: 6-8 Weeks Goal Progress: Progressing Anticipated Interventions Patient/Client Instruction: Educate patient on: Condition, Plan of Care, Risk Factors, Benefits of Fitness Program For the Purpose of:: To improve decision making, To facilitate caregiver knowledge, To improve self management, To prevent re-injury, To improve ability to perform tasks related to life management, To improve tolerance to ADL's Therapeutic Exercise to Include: Strength training, Power training, Endurance training, Balance training, Coordination, Agility training, Body mechanics, Flexibilty training, Passive ROM, Active ROM For the Purpose of:: To decrease pain, To decrease swelling/inflammation, To increase ROM, To improve nutrient delivery to tissue, To increase oxygenation perfusion, To improve muscle performance and motor function, To improve ability to perform ADL's, To increase tolerance to activity/condition/position, To improve health of tissue, To decrease soft tissue restriction, To increase flexibility/ROM Please do not hesitate to contact me at [phone] by phone or if you have questions or concerns regarding this new plan of care! Sincerely, Cristiano Garrison DPT
--- NOTE | 2019-05-04 12:46 | HP.PTREVAL ---
Clayton Root MD, It has been my pleasure to treat DARRYN ROMAN over the last 18 visits for Reverse Left TSA - 01/31/19. Please see the progress note below for an update on the physical therapy plan of care! Subjective: Pt. arrives today after seeing physician, who wants him to continue with rehab with focus on increasing AROM and initiate strengthening. Pt. reports falling a few days ago. He did get an xray at the hospital who reports no movement of surgery. Pt. does have bruising on his superior aspect of his shoulde AC joint region and at L laterl elbow. Pt. reports no other chagnes at this point in time. Objective/Function: Pt. was pretty sore today after falling on his shoulder a few days ago. Pt. has ~110deg of flexion and abd actively. Pt. has more sore in theses range as well. I focused on ROM rather strengthening this date seoncdary to icnerased pain after fall. COnt. to progress end ranges of ROM, AROM and stability exercise as tolerated. Plan Plan: . He needs to have increased ROM alloing for basic ADLs and return to work. Pt. has initiated some isometrics, but still needs better ROM, especially with overhead motions. Goals Goal 1:: Pt. to be I with HEP. Goal Time Frame: 4-6 Weeks Goal Progress: Progressing Goal 2:: Pt. to sleep throughout the night withotu increase in L shoulder pain. Goal Time Frame: 4-6 Weeks Goal Progress: Progressing Goal 3:: Pt. to have full L shoulder ROM without increase in symptoms. Goal Time Frame: 2-4 Weeks Goal Progress: Progressing Goal 4:: Pt. to have increased LUE strength to 4/5 throughout without increase insymptoms. Goal Time Frame: 6-8 Weeks Goal Progress: Progressing Goal 5:: Pt. to resume all work related activities without limitations. Goal Time Frame: 6-8 Weeks Goal Progress: Progressing Anticipated Interventions Patient/Client Instruction: Educate patient on: Condition, Plan of Care, Risk Factors, Benefits of Fitness Program For the Purpose of:: To improve decision making, To facilitate caregiver knowledge, To improve self management, To prevent re-injury, To improve ability to perform tasks related to life management, To improve tolerance to ADL's Therapeutic Exercise to Include: Strength training, Power training, Endurance training, Balance training, Coordination, Agility training, Body mechanics, Flexibilty training, Passive ROM, Active ROM For the Purpose of:: To decrease pain, To decrease swelling/inflammation, To increase ROM, To improve nutrient delivery to tissue, To increase oxygenation perfusion, To improve muscle performance and motor function, To improve ability to perform ADL's, To increase tolerance to activity/condition/position, To improve health of tissue, To decrease soft tissue restriction, To increase flexibility/ROM Please do not hesitate to contact me at [phone] by phone or if you have questions or concerns regarding this new plan of care! Sincerely, LAUREN BoschT
--- NOTE | 2019-06-24 15:56 | HP.PTDCSUM ---
It has been my pleasure to treat DARRYN ROMAN referred by Dr. Clayton Root MD, with the diagnosis of Reverse Left TSA - 01/31/19 for a total of 32 visit(s). Discharge Date: 06/24/19 Please see the following information for a summary of their discharge status. Subjective: Pt. reports I am doing better, but not all the way better. Pt. reports being 70% better overall. Pt. is HEP compliant. Pt. continues to have increase pain with raising his arm over his head. Pt. L shoulder Pain Intensity (Out of 10): 2 % Improvement: 70 Objective/Function: PROM: L shoulder: flexion 140deg, abd 130deg, ER at 90deg 70deg, IR at 90deg 40deg. AROM: L shoulder: flexion 125deg, abd 100deg, functional ER C2, functional IF L PSIS. MMT: Flexion: 4/5, abd 4/5, ER 4/5, IR 4/5, ext 4/5. Pt. has increased soreness with IR/ER testing. I talked with him about continuing to progress ROM as tolerated. He has banded exercises to work on light strengthening with HEP to reinforce this. Pt. consents. Pt. to follow up with physician in July. Goal 1:: Pt. to be I with HEP. Goal Progress: Goal Met Goal 2:: Pt. to sleep throughout the night withotu increase in L shoulder pain. Goal Progress: Progressing Goal 3:: Pt. to have full L shoulder ROM without increase in symptoms. Goal Progress: Progressing Goal 4:: Pt. to have increased LUE strength to 4/5 throughout without increase insymptoms. Goal Progress: Progressing Goal 5:: Pt. to resume all work related activities without limitations. Goal Progress: Progressing Plan: DC to HEP at this point in time. Discharge Comments: Pt. was seen after his L shoulder surgery. Pt. has been slowly progresing. He still has limited ROM, but ahs imrpoved. He is progressing with light strenghtening. He will be DC to HEP with focus on end range of motion and light strengthening and stability exercises. If there are questions or concerns regarding this patient's physical therapy, please feel free to call me at [phone]. Thank you for the referral of this patient. Sincerely, LAUREN BoschT
== END 2019-06-24 19:00 | disposition home or self-care (01) ==
LOC: PT 12:30
PROVIDERS: Family Provider Family Medicine; PCP Family Medicine; Referring Provider Orthopaedic Surgery; Visit Provider Orthopaedic Surgery
DX: M75.122 Complete rotator cuff tear or rupture of left shoulder, not specified as traumatic (principal); Z96.612 Presence of left artificial shoulder joint
CPT/HCPCS: 97110; 97140; 97161; 97164

== ENCOUNTER 2020-11-22 16:35 | Emergency (ER) | payer OTHER, MEDICARE, SELFPAY ==
[2020-11-22 16:37] VITALS: BP 152/89; PULSE 79; RESP 18; TEMP 37.2; O2SAT 95; BMI 22.4
--- NOTE | 2020-11-22 16:45 | RAD_ITS ---
STUDY: X-RAY - RIGHT HUMERUS REASON FOR EXAM: Male, 70 years old. Injury. Pain. TECHNIQUE: 3 view(s) of the humerus. COMPARISON: Right shoulder, 11/22/2020. FINDINGS: The shoulder is not included. The visualized humeral shaft is intact without evidence of fracture. There are degenerative changes about the elbow. There is no demonstrated fracture or osseous destructive process. There is no demonstrated soft tissue abnormality. RAD/Humerus min 2 Views IMPRESSION: No acute fracture or dislocation. Electronically Signed: Raudel Valencia DO at 18:18 EDT Tel [phone], Service support ,
--- NOTE | 2020-11-22 16:45 | RAD_ITS ---
STUDY: X-RAY - RIGHT SHOULDER REASON FOR EXAM: Male, 70 years old. Slip and fall at work. Landed on right shoulder. Neck pain. TECHNIQUE: 3 view(s) of the shoulder. COMPARISON: Right humerus, 11/22/2020 and right shoulder 08/10/2013. FINDINGS: There is cephalad migration of the humeral head consistent with rotator cuff pathology. This was not present on the previous study. There is marked degenerative changes of the glenohumeral joint. There is degenerative arthrosis of the acromioclavicular joint without inferior osseous spur formation. Normal acromion. Normal humeral head and visualized proximal humerus. The soft tissue structures are unremarkable. Normal visualized pulmonary apex. RAD/Shoulder min 2 Views IMPRESSION: Marked narrowing of the acromiohumeral space when compared to previous study with degenerative changes of the acromioclavicular joint. There is no obvious fracture or dislocation although there is little change in position of the humeral head on the various images. There is continued concern for impaction of the shoulder into the glenohumeral joint and possible fracture, CT could be performed. Electronically Signed: Raudel Valencia DO at 18:23 EDT Tel [phone], Service support ,
--- NOTE | 2020-11-22 16:46 | EDS_ITS ---
HPI History of Present Illness Chief Complaint: Upper Extremity Injury Informant: patient Occured/Mechanism Mechanism/Context: Yes fall Onset/Context/Timing Onset: Today Context: Sudden Onset Timing: Continuous Quality of Pain: Stabbing Location: Right shoulder and upper arm Worsened by: Movement Relieved by: Rest Associated Symptoms Associated Symptoms: Negative for Parasthesia, Weakness and Loss of Funtion Narrative Narrative: Patient presents with right shoulder and arm pain that began today after a fall. Patient states he slipped on wet rollers while he was at work. 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 Patient states he landed on his right shoulder and arm. Patient states he felt his right arm move forward. Patient states his pain is stabbing. Patient states his pain is worse with any movement. Patient denies any paresthesias or weakness. Patient denies any head injury or loss of consciousness. Patient denies any other injuries. [facility] Medical History Asthma COPD (chronic obstructive pulmonary disease) HTN (hypertension) Hx of blood clots Home Medications aspirin 81 mg PO DAILY@0800 02/03/14 [History Last Taken 08/24/18] budesonide-formoterol [Symbicort] 2 puff PO BID 02/03/14 [History Last Taken 08/24/18] ipratropium-albuterol 3 ml INHALATION Q4H.RT 02/03/14 [History Last Taken 08/24/18] pravastatin 10 mg PO QHS 02/03/14 [History Last Taken 08/23/18] albuterol sulfate 2 puff INHALATION Q4H PRN PRN 08/24/18 [History Last Taken Unknown] apixaban 5 mg PO BID 08/24/18 [History Last Taken 08/24/18] lisinopril 20 mg PO DAILY 08/24/18 [History Last Taken 08/24/18] metoprolol tartrate 50 mg PO BID 08/24/18 [History Last Taken 08/24/18] hydrocodone-acetaminophen 1 tab PO Q6H PRN PRN 3 Days #10 tablet 11/22/20 [Rx Last Taken Unknown] Allergy/AdvReac Type Severity Reaction Status Date / Time azithromycin [From Zithromax] Allergy Swelling Verified 11/22/20 16:36 Penicillins Allergy Hives Verified 11/22/20 16:36 shellfish derived Allergy Hives Verified 11/22/20 16:36 venom-honey bee Allergy Hives Verified 11/22/20 16:36 [bee venom (honey bee)] chocolate flavor AdvReac Diarrhea Verified 11/22/20 16:36 Surgical History H/O neck surgery Heart valve replaced History of appendectomy History of hand surgery Social History Smoking Status: Current every day smoker tobacco type: cigarettes ROS ROS ED Constitutional Constitutional ED: Denies chills or fever(s) Eyes Eyes: Denies blurry vision or change in vision ENT ENT ED: Reports rhinorrhea; Denies sore throat Cardiovascular Cardiovascular: Denies chest pain or palpitations Respiratory/Chest Respiratory/Chest: Denies cough or dyspnea Gastrointestinal Gastrointestinal: Denies nausea or vomiting Genitourinary Genitourinary ED: Denies dysuria or hematuria Musculoskeletal Musculoskeletal: Reports neck pain; Denies back pain Integumentary Denies abscess or rash Neurologic Neurologic: Denies headache(s) or weakness Allergic/Immunologic Allergic/Immunologic ED: Denies mouth swelling or urticaria EXAM Physical Exam Const Vital Signs: 11/22/20 16:37 Temperature 98.9 F Temperature Source Oral Pulse Rate 79 Respiratory Rate 18 Blood Pressure 152/89 H Blood Pressure Mean 110 Pulse Ox 95 Oxygen Delivery Method Room Air Positive well nourished and well developed General Appearance ED: well developed HEENT Reports moist mucous membranes Neck supple Resp normal respiratory effort Auscultation: wheezes scattered wheezes Cardio regular rate and regular rhythm GI non-tender Palpation: soft Extremity Extremity Narrative: There is tenderness over the right shoulder, humerus, elbow, and forearm. There is no obvious deformity noted. Radial pulses are equal bilaterally. Capillary refill is less than 2 seconds in all digits. Range of motion was limited in all motions of the right upper extremity secondary to pain. Sensation was intact to light touch in the radial, median, and ulnar areas. Strength is 5/5 in the radial, median, and ulnar areas. Neuro oriented x3, CN's II-XII intact bilaterally, moves all extremities, no focal motor deficits and no sensory deficits noted Sensorium / Orientation: alert Psych mental status grossly normal MDM MDM MDM Narrative Medical decision making narrative: Patient was given a dose of Dilaudid here. X-rays of the right forearm were obtained. There are 2 views. On my interpretation, there is no acute fracture. There is no dislocation. There is no soft tissue swelling. Radiologist also interpreted the x-rays and agrees. X-rays of the right humerus were obtained. There are 3 views. On my interpretation, there is no acute fracture. There is no dislocation. There is no soft tissue swelling. Radiologist also interpreted the x-rays and agrees. X-rays of the right shoulder were obtained. There are 3 views. On my interpretation, there is no acute fracture. There is no dislocation. There are degenerative changes noted. Radiologist also interpreted the x-rays and agrees. CT scan of the right shoulder was obtained. There are degenerative changes of the right shoulder with no fracture or dislocation. There is some narrowing of the acromiohumeral space with atrophy of the supraspinatus muscle. This could represent rotator cuff injury. This was interpreted by the radiologist and reviewed by myself. CT scan of the brain was obtained. There is no acute intracranial abnormality noted. This was interpreted by the radiologist and reviewed by myself. Patient was resting comfortably on reevaluation. Patient was given a sling. Patient was instructed to ice and elevate the right shoulder. Patient was instructed to follow-up with her primary care physician in 5 to 7 days. Patient understood and was agreeable with the plan. All quest ions were answered. Discharge Plan Triage Chief Complaint: Upper Extremity Injury ED Provider: Dutch Soliman Dx/Rx/DC Orders Clinical Impression: Sprain of right shoulder Instructions: ED Shoulder Sprain Prescriptions: New hydrocodone-acetaminophen [hydrocodone-acetaminophen] 1 TABLET tablet 1 tab PO Q6H PRN PRN (Reason: Pain) 3 Days Qty: 10 RF: 0 No Action aspirin 81 MG tablet,chewable 81 mg PO DAILY@0800 RF: 0 pravastatin 20 MG tablet 10 mg PO QHS RF: 0 budesonide-formoterol [Symbicort] 1 INHALER inhaler 2 puff PO BID RF: 0 ipratropium-albuterol 3 ML solution for nebulization 3 ml inhalation Q4H.RT RF: 0 metoprolol tartrate 50 MG tablet 50 mg PO BID RF: 0 apixaban 5 MG tablet 5 mg PO BID RF: 0 lisinopril 20 MG tablet 20 mg PO DAILY RF: 0 albuterol sulfate 18 GM HFA aerosol inhaler 2 puff inhalation Q4H PRN PRN (Reason: Sob &/Or Wheezing) RF: 0 Primary Care Provider: Cherelle Cutler Referrals: Cherelle Cutler DO [Primary Care Provider] - 3-5 Days Abhilash Lewis MD [STAFF PHYSICIAN] - 5-7 Days Disposition Disposition: Home, Self Care
[2020-11-22] MEDS: HYDROmorphone 0.5 MG/0.5 ML SYRINGE IV (17:17)
--- NOTE | 2020-11-22 17:20 | RAD_ITS ---
STUDY: X-RAY - RIGHT RADIUS AND ULNA REASON FOR EXAM: Male, 70 years old. Injury. Pain. Slip and fall at work. Landed on right shoulder and elbow. Neck pain. Abrasion of the right elbow. TECHNIQUE: 2 view(s) of the forearm. COMPARISON: Right humerus, 11/22/2020. FINDINGS: There is no demonstrated soft tissue swelling. Normal visualized radius. Normal visualized ulna. No visualized fracture. There are degenerative changes of the wrist and elbow. RAD/Forearm 2 Views IMPRESSION: No visualized fracture or dislocation. Electronically Signed: Raudel Valencia DO at 18:20 EDT Tel [phone], Service support ,
--- NOTE | 2020-11-22 17:46 | ED.RN ---
THIS RN CONTACTED THALIA [employer]ER ([phone]) AT [facility] TO INQUIRE OF DRUG SCREEN REQUIREMENTS SINCE PT WAS INJURED WHILE AT WORK. PT WANTS TO FILE WORKMANS COMP, JUAN LUIS INITIATED. PER THALIA [employer] ON[employer] F[employer]ER AT [facility], NO DRUG SCREEN IS REQUIRED. THALIA REPORTS THAT THE PT WAS NOT FOLLOWING COMPANY POLICY WHEN INJURED AND THAT THE VISIT WILL PROBABLY NOT BE COVERED UNDER WORKMANS COMP. PT INFORMED AND REPORTS HE STILL WANTS TO FILE WORKMANS COMP.
--- NOTE | 2020-11-22 18:35 | CT_ITS ---
STUDY: CT RIGHT SHOULDER REASON FOR EXAM: Male, 70 years old. Shoulder pain. Fall on to right shoulder. RADIATION DOSAGE (If Supplied By Facility): CTDIvol = ( 26.24 ) mGy, DLP = ( 572.11 ) mGycm TECHNIQUE: The patient was scanned in a multi detector CT scanner. High resolution transaxial imaging was performed without the administration of intravenous contrast material. Sagittal and coronal images were reconstructed. Individualized dose optimization techniques were used for this CT. COMPARISON: Right shoulder, 11/22/2020. FINDINGS: There is moderate osteoarthritis, with moderate articular joint space narrowing and moderate osteoarthritic spurring. There is marked narrowing of the acromiohumeral space with the humeral head abutting the underside of the acromium. Normal glenoid rim, neck and visualized scapula. Normal humeral head, neck and tuberosities. Normal coracoid process. Normal visualized lateral clavicle. There is moderate osteoarthritis with articular joint space narrowing and with osteoarthritic spurring. There is a Type I morphology (flat undersurface), with a neutral orientation. There is atrophy of the supraspinatus muscle with marked thinning of the supraspinatus tendon. Remainder of the surrounding musculature appears normal. No joint effusion. CT/Extremity Upper without Contra IMPRESSION: 1. Marked degenerative changes of the right shoulder without acute fracture or dislocation. 2. Narrowing of the acromiohumeral space with atrophy of the supraspinatus muscle. Question rotator cuff pathology. Electronically Signed: Raudel Valencia DO at 19:21 EDT Tel [phone], Service support ,
--- NOTE | 2020-11-22 18:47 | CT_ITS ---
STUDY: CT BRAIN WITHOUT CONTRAST REASON FOR EXAM: Male, 70 years old. Head injury. RADIATION DOSAGE (If Supplied By Facility): CTDIvol = ( 44.99 ) mGy, DLP = ( 846.73 ) mGycm TECHNIQUE: Transaxial CT imaging of the brain was performed without administration of intravenous contrast material. Individualized dose optimization techniques were used for this CT. COMPARISON: 07/25/2018. FINDINGS: Normal soft tissue structures. Normal calvarium. Normal size ventricles and extra-axial spaces for the patient''s age. Normal white matter tracts of the cerebral hemispheres. Normal basal ganglia and thalami. Normal brainstem. Normal cerebellum. There is no intracranial hemorrhage. There are no findings of an acute ischemic infarction. Normal visualized paranasal sinuses. CT/Brain/Head without Contrast IMPRESSION: No acute intracranial or calvarial abnormality. There is no major interval change. Electronically Signed: Raudel Valencia DO at 19:17 EDT Tel [phone], Service support ,
[2020-11-22 19:24] VITALS: BP 158/86; PULSE 87; RESP 14; O2SAT 98
[2020-11-22 20:04] VITALS: BP 106/66; PULSE 87; RESP 18; O2SAT 96
== END 2020-11-22 20:21 | disposition home or self-care (01) ==
PROVIDERS: Emergency Provider Emergency Medicine; PCP Family Medicine
DX: S43.401A Unspecified sprain of right shoulder joint, initial encounter (principal); W01.0XXA Fall on same level from slipping, tripping and stumbling without subsequent striking against object, initial encounter; Y93.9 Activity, unspecified; Y92.9 Unspecified place or not applicable; Y99.0 Civilian activity done for income or pay; I10 Essential (primary) hypertension; J44.9 Chronic obstructive pulmonary disease, unspecified; Z86.718 Personal history of other venous thrombosis and embolism; Z79.01 Long term (current) use of anticoagulants; Z79.82 Long term (current) use of aspirin; Z79.899 Other long term (current) drug therapy; F17.210 Nicotine dependence, cigarettes, uncomplicated
CPT/HCPCS: 70450; 73030; 73060; 73090; 73200; 96374; 99285

== ENCOUNTER 2021-07-08 11:00 | Outpatient (RCR) | payer OTHER, SELFPAY ==
--- NOTE | 2021-03-18 11:18 | HP.PTEVAL_ITS ---
Patient's Visit Information DARRYN ROMAN is a 71 year old M referred to Physical Therapy by Dr. 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 Review HEP: hand/wrist exercises, biceps curls no weight, pendulums Added: supine flexion cane, supine cane ER - Subjective Right Reverse Total Shoulder 03/04/[address] Root. He reports that he had an accident at work in November 22- was going to do it in Jan but MD got COVID so he waited until February. He was very painful before surgery- its better but still here. The pain is located in the anterior shoulder- Describes the pain as sharp once in awhile but mostly just lets him know its there. Worst: 15/10 Aggravates: every day routine Eases: Aleve Best: 0/10. Sleep: wakes him up - sleeping in bed with the shoulder propped. Right hand dominate. Does have some pain that radiates to the neck but not down the arm. No N/T in the fingers. 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 Fully I prior to surgery. 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 He is very active. He is also does Martial Arts. No images since surgery. He is back to driving- daughter is there if he needs help. Wears the sling when he drives and when he goes out. The shoulder does drain-but its clear- he is watching for infection. PMHx/Meds: no change since 11/22 emergency trip - Objective Posture: FH, RS- can correct with verbal cues but does not maintain- sling on the right UE- Guarding. Gait: no LE deviation noted- but does have decreased arm swing and trunk rotation due to the sling. Palpation: tender along upper trap and into the bicipital groove. Observation: no s/s of infection- no open sections of incision noted. ROM: AROM: Cervical: WNL Finger dexterity/Employee Benefits Specialist: WFL, Elbow: WFL- PROM: Shoulder: Flexion: 70 degrees, Abd: 80 degrees, IR: to belly, ER: 15 degrees. Sensation: WNL. Strength: Employee Benefits Specialist: diminishes, Elbow: 4/5, Shoulder: not tested due to protocol- scap: fair minus - Balance/Special Test Scores Quick DASH Score: 84.0900 - Goals Goal 1:: Patient will be I with HEP and progression Goal Time Frame: 4-6 Weeks Goal 2:: Patient will demo full AROM of the right shoulder (per protocol) Goal Time Frame: 4-6 Weeks Goal 3:: Patient will maintain proper posture throughout treatment session to demo increased scap s/s. Goal Time Frame: 4-6 Weeks Goal 4:: Patient will report return to all normal ALD's with no more than 3/10 pain Goal Time Frame: 4-6 Weeks - Rehabilitation Potential Physical Therapy Diagnosis: Patient presents with hypomobility s/p Right Reverse Total Shoulder- he has decreased ROM, UE and scapular strength/stabilization and muscular endurance leading to poor posture and increased pain with ADL's. Rehabilitation Potential: Good - Anticipated Interventions Patient/Client Instruction: Educate patient on: Benefits of Fitness Program Therapeutic Exercise to Include: Strength training, Endurance training, Coordination, Body mechanics, Postural training, Flexibilty training, Neuromotor development, Passive ROM, Active ROM, Dynamic Lumbar Stabilization, Scapular Strength/Stabilization For the Purpose of:: To improve muscle performance and motor function TENS: Yes Cryotherapy (ice pack, ice massage): Yes Thermo therapy (hot pack): Yes Ultrasound (thermal/non thermal): No Thank you for the opportunity to evaluate your patient. For Medicare and Medicare HMO plans, please review the plan of care and approve it. It will need to be FAXED BACK to us at [phone] for Medicare purposes. For Medicare only, by signing this I certify the plan of care. Please let me know if there are questions or concerns regarding this plan of care. Physician Signature: Date:
--- NOTE | 2021-04-24 12:00 | HP.PTREVAL ---
Dr. 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 Please see the progress note below for an update on the physical therapy plan of care! Subjective: Patient reports that if he moves the wrong way it reminds him- he is not babying it and does what he can. Worst in last 48 hours 6/10 Agg: picking up something or movement in in the wrong direction. The pain stops him in his tracks. Best in last 48 hours: 0/10 Eases: heat and rest. Sleep: on/off it wakes him up- he is sleeping in his bed. Patient feels that he is 60% back to full function. 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 Goes back to May 08. Objective/Function: Posture: FH, RS- does guard the right UE- no sling. Observation: puts coat on with right arm in first due to lack of ROM and reports pain. Palpation: tender along medial border of the scapula, upper trap to the tip of the acromion, bicipital groove. ROM: Wrist/Elbow/Hand: WNL, Shoulder: AROM: Flexion: 80 degrees Abd: 70 degrees: ER: 20 degrees IR: back pocket. PROM: no changes from AROM due to guarding. Strength: Scap: poor movement with current AROM, Elbow: Flexion: 6lbs Extn: unable to register on dynamometer, Practice Director: 10 Plan Plan: Need new C9- Continue with current POC- encourage ROM and functional mobility. New order from Dr noonan to use modalites for pain as needed. Begin cane ex's again week of 2-14. 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 Review HEP: hand/wrist exercises, biceps curls no weight, pendulums Added: supine flexion cane, supine cane ER Balance/Gait/Functional tests - Balance/Special Test Scores Quick DASH Score: 56.8175 Goals Goal 1:: Patient will be I with HEP and progression Goal Time Frame: 4-6 Weeks Goal Progress: Progressing Goal 2:: Patient will demo full AROM of the right shoulder (per protocol) Goal Time Frame: 4-6 Weeks Goal Progress: Progressing Goal 3:: Patient will maintain proper posture throughout treatment session to demo increased scap s/s. Goal Time Frame: 4-6 Weeks Goal Progress: Progressing Goal 4:: Patient will report return to all normal ALD's with no more than 3/10 pain Goal Time Frame: 4-6 Weeks Goal Progress: Progressing Anticipated Interventions Patient/Client Instruction: Educate patient on: Benefits of Fitness Program Therapeutic Exercise to Include: Strength training, Endurance training, Coordination, Body mechanics, Postural training, Flexibilty training, Neuromotor development, Passive ROM, Active ROM, Dynamic Lumbar Stabilization, Scapular Strength/Stabilization For the Purpose of:: To improve muscle performance and motor function TENS: Yes Cryotherapy (ice pack, ice massage): Yes Thermo therapy (hot pack): Yes Ultrasound (thermal/non thermal): No Please do not hesitate to contact me at [phone] by phone or if you have questions or concerns regarding this new plan of care! Sincerely, Agatha Casey DPT
--- NOTE | 2021-07-03 13:32 | HP.PTREVAL_ITS ---
Dr. 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 Please see the progress note below for an update on the physical therapy plan of care! Subjective: Patient reports that he has had another surgery. He reports they shaved off the AC joint. He had a hearing for workers comp yesterday- they are trying to figure out how to get this covered- workers comp vs insurance for this new procedure. He feels its getting better but he still has pain. Sleep: disturbed. Pain is located in the bicipital groove- no pain running down his arm. Currently 3/10. No pain meds. Objective/Function: Posture: FH, RS- does guard the right UE- no sling. Palpation: tender along upper trap to the tip of the acromion, bicipital groove. ROM: Wrist/Elbow/Hand: WNL, Shoulder: AROM: Flexion: 70 degrees Abd: 35 degrees: ER: neutral IR: back pocket. AAROM: Flexion: 90 degrees, Abd: 45 degrees Strength: Scap: poor movement with current AROM, Shoulder: not tested due to pain with s/s Elbow:3+/5 Business Services Clerk: 10 Plan Plan: 07/03/21: Current C9 expires 07/16/21- 2x a week for 2 weeks. Need new C9- Continue with current POC- encourage ROM and functional mobility. New order from Dr nonoan to use modalites for pain as needed. Begin cane ex's again week of 2-14. 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 Review HEP: hand/wrist exercises, biceps curls no weight, pendulums Added: supine flexion cane, supine cane ER Balance/Gait/Functional tests - Balance/Special Test Scores Quick DASH Score: 56.8175 Goals Goal 1:: Patient will be I with HEP and progression Goal Time Frame: 4-6 Weeks Goal Progress: Progressing Goal 2:: Patient will demo full AROM of the right shoulder (per protocol) Goal Time Frame: 4-6 Weeks Goal Progress: Progressing Goal 3:: Patient will maintain proper posture throughout treatment session to demo increased scap s/s. Goal Time Frame: 4-6 Weeks Goal Progress: Progressing Goal 4:: Patient will report return to all normal ALD's with no more than 3/10 pain Goal Time Frame: 4-6 Weeks Goal Progress: Progressing Anticipated Interventions Patient/Client Instruction: Educate patient on: Benefits of Fitness Program Therapeutic Exercise to Include: Strength training, Endurance training, Coordination, Body mechanics, Postural training, Flexibilty training, Neuromotor development, Passive ROM, Active ROM, Dynamic Lumbar Stabilization, Scapular Strength/Stabilization For the Purpose of:: To improve muscle performance and motor function TENS: Yes Cryotherapy (ice pack, ice massage): Yes Thermo therapy (hot pack): Yes Ultrasound (thermal/non thermal): No Please do not hesitate to contact me at [phone] by phone or if you have questions or concerns regarding this new plan of care! Sincerely, Agatha Casey DPT
--- NOTE | 2021-09-19 07:24 | HP.PT.NRP ---
DARRYN ROMAN was seen in my office for initial evaluation on 03/18/21. The following Plan of Care was established for this patient: Initial Frequency: 2x /Week Initial Duration: 6 Weeks Patient/Client Instruction: Educate patient on: Benefits of Fitness Program Therapeutic Exercise to Include: Strength training, Endurance training, Coordination, Body mechanics, Postural training, Flexibilty training, Neuromotor development, Passive ROM, Active ROM, Dynamic Lumbar Stabilization, Scapular Strength/Stabilization For the Purpose of:: To improve muscle performance and motor function TENS: Yes Cryotherapy (ice pack, ice massage): Yes Thermo therapy (hot pack): Yes Ultrasound (thermal/non thermal): No This patient was last seen in our office . Pertinent comments regarding their Physical therapy will appear below: Patient has not attended PT on a new C9- appropriate to be d/c at this time and return to MD for further evaluation as needed. At this point I will be discontinuing this patient from physical therapy. I would be happy to see this patient again in the future if found appropriate by the physician. Thank you! Agatha Casey DPT Balance/Gait/Functional tests - Balance/Special Test Scores Quick DASH Score: 56.8166
== END 2021-07-08 19:00 | disposition home or self-care (01) ==
LOC: PT 11:00
PROVIDERS: PCP Family Medicine; Referring Provider Orthopaedic Surgery; Visit Provider Orthopaedic Surgery
DX: Z47.1 Aftercare following joint replacement surgery (principal); Z96.611 Presence of right artificial shoulder joint; M19.011 Primary osteoarthritis, right shoulder
CPT/HCPCS: 97014; 97110; 97140; 97161; 97164; G0283

== ENCOUNTER 2022-01-13 08:56 | Outpatient (CLI) | payer MEDICARE, SELFPAY ==
--- NOTE | 2022-01-13 08:58 | RDU_ITS ---
Reason For Study: HTN Right Renal Artery Left Renal Artery Right renal artery ostium Left renal artery ostium 154.5/39.4 175.2/45.6 RSV/EDV. PSV/EDV. Right renal artery proximal Left renal artery proximal PSV/EDV 339.8/112.2 PSV/EDV. 143.5/39.4 . Right renal artery mid 163.7/44 Left renal artery mid 139.9/39.4 PSV/EDV. PSV/EDV . Right renal artery distal 76.9/30.2 Left renal artery distal 73.6/25.7 PSV/EDV. PSV/EDV. Right RAR 8.43. Left RAR 3.83. Right Renal Parenchyma Left Renal Parenchyma Upper Pole Medula 22.5/7.7 PSV/EDV. Left upper pole medulla 27.3/10 Right upper pole medulla EDR 0.3 . PSV/EDV . Right upper pole medulla R.I. Left upper pole medulla EDR 0.4 . 0.66 . Left upper pole medulla R.I. 0.64 . Upper Rodney Cortx 12/4.7 PSV/EDV. UP Cortex 15.3/6 PSV/EDV. Right upper pole cortex EDR 0.4 . Left upper pole cortex EDR 0.4 . Right upper pole cortex R.I. 0.61 . Left upper pole cortex R.I. 0.61 . Right lower Pole medulla 25.5/8.4 Left lower Pole medulla 23.6/9.3 PSV/EDV . PSV/EDV . Right lower pole medulla EDR 0.3 . Left lower pole medulla EDR 0.4 . Right lower pole medulla R.I. Left lower pole medulla R.I. 0.61 . 0.67 . Lower Pole Cortx 18.6/6.5 PSV/EDV. Lower Pole Cortex 16.3/5.9 PSV/EDV. Left lower pole cortex EDR 0.4 . Right lower pole cortex EDR 0.4 . Left lower pole cortex R.I. 0.65 . Right lower pole cortex R.I. 0.64 . Left Renal Hilar Right Renal Hilar LT Hilar avg 74.6/26.3 PSV/EDV . Right Hilar avg 62.1/24.1 PSV/EDV. Left hilar acceleration time 60 Right hilar acceleration time 30 m/sec. m/sec. Left Renal Dimensions Right Renal Dimensions Left kidney size 9.15 cm . Right kidney size 8.33 cm . Left cortical dimension 1.41 cm . Right cortical dimension 1.18 cm . Nonvascular structures noted on the right kidney. Aorta Proximal abdominal aorta 2.13 x 2.13 cm . Proximal abdominal aorta peak systolic velocity is 40.3 cm/sec . Distal abdominal aorta 1.49 x 1.47 cm . Distal abdominal aorta peak systolic velocity is 36 cm/sec . VL/Renal Artery Duplex Ultrasound Interpretation Summary Right renal artery >60% stenosis. Left renal <60% stenosis. Ordering Physician: Issac Blankenship Referring Physician: Cherelle Cutler Performed By: Ayse Tejada RVT
== END 2022-01-13 23:59 | disposition home or self-care (01) ==
PROVIDERS: PCP Family Medicine; Visit Provider Surgery Vascular Surgery
DX: I70.1 Atherosclerosis of renal artery (principal); I10 Essential (primary) hypertension; F17.200 Nicotine dependence, unspecified, uncomplicated
CPT/HCPCS: 93975

== ENCOUNTER 2022-04-04 01:33 | Inpatient (IN) | payer MEDICARE, SELFPAY ==
[2022-04-04] VITALS (20 sets, daily range): BP systolic 91–133; BP diastolic 64–82; PULSE 84–131; RESP 14–23; TEMP 36.6–37.1; O2SAT 87–96; BMI 21.4; BMI 21.2
--- NOTE | 2022-04-04 02:18 | CT_ITS ---
INDICATION: abd pain EXAMINATION: CT ABDOMEN AND PELVIS WITH CONTRAST - CT Abdomen And Pelvis W/ Contrast Injection TECHNIQUE: Helically acquired images were obtained of the abdomen and pelvis following IV contrast. A radiation dose optimization technique was used for this scan. IV Contrast dosage and agent: Oral contrast: None. COMPARISON: None. FINDINGS: LOWER CHEST: Ill-defined air space opacities are seen in the left lower lobe suggesting pneumonia. No cardiomegaly or pericardial effusion. LIVER: Homogeneous. Cyst in the left lobe of the liver measures 6 mm, segment #3. GALLBLADDER AND BILIARY TREE: No calcified gallstones. No gallbladder distension or wall edema. No intra- or extrahepatic biliary ductal dilation. PANCREAS: No focal cystic or solid mass. SPLEEN: Normal size without focal cystic or solid mass. ADRENAL GLANDS: No nodules. KIDNEYS AND URETERS: Normal renal size and position. Bilateral renal cysts, the largest measures 2 cm in diameter. PERITONEUM: No ascites or free air. No other fluid collection. BOWEL: There is irregular wall thickening of the cecum may represent a neoplastic process. No stomach or bowel distension. No focal inflammatory change. LYMPH NODES: No enlarged mesenteric or retroperitoneal lymph nodes. VESSELS: Aorta is non-dilated. URINARY BLADDER: Unremarkable. REPRODUCTIVE ORGANS: No pelvic masses. ABDOMINAL WALL: No discrete abdominal or pelvic wall hernia. BONES: No lytic or blastic abnormality. CT/Abdomen/Pelvis W IV Cont ONLY IMPRESSION: Left lower lobe pneumonia. Cyst in the left lobe of the liver measures 6 mm, segment #3. Bilateral renal cysts, the largest measures 2 cm in diameter. There is irregular wall thickening of the cecum may represent a neoplastic process. There is no evidence of bowel obstruction. Electronically Signed: Deja Cesar MD at 4:10 EST ,
[2022-04-04] MEDS: 0.9% Normal Saline 1,000 ML 999 ML IV (02:36)
[2022-04-04] MEDS: Ondansetron 4 MG/2 ML Vial IV ×2 (02:37→10:10)
[2022-04-04] MEDS: Morphine 4 MG/ML Syringe IV (02:37)
[2022-04-04 02:43] LABS: Absolute Lymphocyte Count 1.62 X10^3/uL (0.83-4.51); Absolute Neutrophil Count 9.3 X10^3/uL (2.0-7.7); Basophil# 0.03 X10^3/uL; Basophil% 0.2 % (0-1); Eosinophil# 0.19 X10^3/uL; Eosinophils% 1.6 % (0-5); Hematocrit 38.8 % (40-54); Hemoglobin 12.9 g/dL (13.0-16.5); Lymphocyte # 1.62 X10^3/ul (0.83-4.51); Lymphocyte % 13.5 % (19-41); Mean Corp Hgb Conc 33.2 g/dL (32-36); Mean Corpuscular Hgb 33.4 pg (27.0-32.0); Mean Corpuscular Volume 100.5 fL (80-94); Mean Platelet Vol. 10.3 fl (6.2-12.0); Monocyte# 0.83 X10^3/uL; Monocyte% 6.9 % (0-10); NRBC Flagged by Analyzer 0 % (0-5); Neutrophil # 9.27 X10^3/uL (2.7-7.7); Neutrophil % 77.1 % (47-70); Platelet Count 344 K/mm3 (150-450); RBC Distribution Width CV 13.9 % (11.6-14.6); RBC Distribution Width SD 50.6 fl (35.1-43.9); Red Blood Count 3.86 M/mm3 (4.6-6.2)
[2022-04-04 03:00] LABS: AST(SGOT) 22 U/L (15-37); Alanine Aminotransfer ALT/SGPT 16 U/L (16-61); Albumin, Serum 2.5 g/dL (3.2-5.0); Alkaline Phosphatase 72 U/L (45-117); Anion Gap 11 (5-15); BUN 29 mg/dL (7-18); BUN/Creat Ratio 16.5 RATIO (10-20); Bilirubin, Direct 0.23 mg/dL (0.00-0.30); Calcium,Total 9.3 mg/dL (8.5-10.1); Chloride 103 mmol/L (98-107); Creatinine, Serum 1.76 mg/dL (0.70-1.30); EST Glomerular Filtration Rate 41 mL/min (>60); Est Glom Filt Rate - Afr Amer 50 mL/min (>60); Estimated Creatinine Clearance 36.29 ml/min; Globulin 4.4 g/dL (2.2-4.2); Glucose 98 mg/dL (74-106); Lipase 38 U/L (73-393); Protein, Total 6.9 g/dL (6.4-8.2); Sodium Level 137 mmol/L (136-145)
[2022-04-04 03:55] LABS: Lactic Acid 1.4 mmol/L (0.4-1.9)
--- NOTE | 2022-04-04 03:56 | ED.RN ---
This RN walked into room and noticed IV was infiltrated with 0.9% NS running on IV pump. RN stopped infusion and removed IV catheter. Another IV started proximal to previous IV site. warm compress applied, wrapped with gauze for compression. Dr. Sher notified.
--- NOTE | 2022-04-04 04:17 | RAD_ITS ---
INDICATION: cough EXAMINATION/TECHNIQUE: X-RAY - XR Chest 1 View COMPARISON: None. FINDINGS: LINES/DEVICES: Subsegmental atelectasis in the lung bases.. LUNGS: No consolidation, edema or effusion. No pneumothorax. MEDIASTINUM AND CARDIOVASCULAR STRUCTURES: Cardiac silhouette not enlarged. Central airways and mediastinal contour are unremarkable. BONES AND SOFT TISSUES: Unremarkable. RAD/Chest 1 View (Portable) IMPRESSION: No radiographic evidence of acute cardiopulmonary disease. Electronically Signed: Deja Cesar MD at 5:54 EST ,
[2022-04-04 04:34] LABS: Bacteria 0 SEEN /hpf (None Seen); Mucous, Urine 0 SEEN /hpf (<or=2+); Red Blood Cells-Urine 0 SEEN /hpf (0-5); Squamous Epithelial Cells - UA 0 SEEN /hpf (0-5); White Blood Cells 0 SEEN /hpf (0-5)
[2022-04-04 04:40] LABS: Color, Urine Yellow (Yellow); Glucose, Dipstick Normal (Normal); Ketone-Dipstick 15 mg/dl (Negative); Leukocyte Esterase-Dipstick Negative /ul (Negative); Nitrite-Dipstick Negative (Negative); Occult Blood-Urine Negative /ul (Negative); Protein-Dipstick 30 mg/dl (Negative); Urine Bilirubin Dipstick Negative (Negative); Urine Clarity Clear (Clear); Urine Urobilinogen Normal (Normal)
[2022-04-04] MEDS: Ceftriaxone 1 GM/50 ML BAG IV (05:28)
--- NOTE | 2022-04-04 05:53 | EKG12_ITS ---
Test Reason : GENERAL Blood Pressure : / mmHG Vent. Rate : 117 BPM Atrial Rate : 117 BPM P-R Int : 154 ms QRS Dur : 086 ms QT Int : 328 ms P-R-T Axes : 070 052 072 degrees QTc Int : 457 ms Sinus tachycardia Otherwise normal ECG Confirmed by CLARICE OCHOA, CHERI ([id number]), sports editor KIMBERLEE BENNETT ([id number]) on 04/07/2022 1:42:59 PM Referred By: Confirmed By:CHERI ONEIL MD
--- NOTE | 2022-04-04 06:33 | PCM.HP.STD ---
HPI - General General Date of Service: 04/04/22 Chief Complaint: Abdominal pain HPI Narrative Mr. Oliva is a 72-year-old male with history of COPD, hypertension who presented to [facility] 02/01 with right lower quadrant abdominal pain. Initially started on Thursday and then got better but for roughly the past 1 day it is returned so presented to the ED. He was noted to be mildly tachycardic and also O2 sats low 90s on room air. CT abdomen showed left lower lobe pneumonia as well as irregular wall thickening in the cecum which may represent a neoplastic process, no bowel obstruction. Pain significantly improved with morphine. Given his shortness of breath, tachycardia, possible pneumonia and O2 sat in low 90s as well as this abdominal pain and mass hospitalist consulted for admission. Patient seen and evaluated in the ED. He reports that his right lower quadrant pain did show up on Thursday and never really went away but had improved significantly until Thursday night when it worsened again. He has had poor p.o. intake since Thursday and has not been taking his medications due to not feeling well. Last had a solid BM on Thursday and then has had some diarrhea intermittently. Does endorse shortness of breath worsening over the past month or so with sporadic cough primarily with exertion. Has been feeling nauseous in the ED but reports that has been from the pain medication and he was not feeling nauseated before that. No fevers but has felt intermittent chills, denies weight loss. No chest pain endorsed. [facility] Medical History Asthma COPD (chronic obstructive pulmonary disease) HTN (hypertension) Hx of blood clots Home Medications aspirin 81 mg chewable tablet 81 mg PO DAILY@0800 02/03/14 [History Last Taken 08/24/18] budesonide-formoterol HFA 160 mcg-4.5 mcg/actuation aerosol inhaler (Symbicort) 2 puff PO BID 02/03/14 [History Last Taken 08/24/18] ipratropium 0.5 mg-albuterol 3 mg (2.5 mg base)/3 mL nebulization soln 3 ml inhalation Q4H.RT 02/03/14 [History Last Taken 08/24/18] pravastatin 20 mg tablet 10 mg PO QHS 02/03/14 [History Last Taken 08/23/18] albuterol sulfate 90 mcg/actuation aerosol inhaler 2 puff inhalation Q4H PRN PRN Sob &/Or Wheezing 08/24/18 [History Last Taken Unknown] apixaban 5 mg tablet 5 mg PO BID 08/24/18 [History Last Taken 08/24/18] lisinopril 20 mg tablet 20 mg PO DAILY bp 08/24/18 [History Last Taken 08/24/18] metoprolol tartrate 50 mg tablet 50 mg PO BID 08/24/18 [History Last Taken 08/24/18] Allergy/AdvReac Type Severity Reaction Status Date / Time azithromycin [From Zithromax] Allergy Swelling Verified 04/04/22 01:37 Penicillins Allergy Hives Verified 04/04/22 01:37 shellfish derived Allergy Hives Verified 04/04/22 01:37 venom-honey bee Allergy Hives Verified 04/04/22 01:37 [bee venom (honey bee)] chocolate flavor AdvReac Diarrhea Verified 04/04/22 01:37 Surgical History H/O neck surgery Heart valve replaced History of appendectomy History of hand surgery Social History Smoking Status: Light Smoker (<10/day) ROS ROS Narrative General: Denies fever, positive chills, denies weight change HENT: Slight headache, denies stuffy nose, denies sore throat EYES: Denies changes in vision Resp: Sporadic cough with occasional sputum production primarily on exertion, worsening shortness of breath over the past month primarily on exertion Cardiac: Denies chest pain GI: Right lower quadrant abdominal pain with some accompanying diarrhea, did not have nausea until he received pain medication in the ED : Denies changes in urination Extremity: Denies swelling MSK: Denies weakness Neuro: Denies any numbness, denies tingling Heme: Denies any bleeding or bruising Skin: Denies rashes Psychiatric: No complaints voiced Vital Signs Vital Signs Vital Signs: 04/04/22 01:34 04/04/22 04:02 04/04/22 05:36 Temperature 98.7 F 98.3 F Temperature Source Temporal Temporal Pulse Rate 131 H 122 H 121 H Respiratory Rate 19 H 23 H 16 Blood Pressure 114/82 H 133/72 H 126/73 H Blood Pressure Mean 92 92 90 Pulse Ox 90 91 94 Oxygen Delivery Method Room Air Room Air Room Air Weight Weight: 65.7 kg Body Mass Index (BMI) 21.4 Physical Exam Narrative General: Alert, oriented, no apparent distress HEENT: Atraumatic, normocephalic Eyes: Anicteric, normal conjunctiva, extraocular movements grossly intact Neck: Supple Respiratory: Somewhat coarse left lower lobe, normal respiratory effort Cardiovascular: Regular rate and rhythm GI: Soft, nondistended, somewhat tender diffusely primarily in right lower quadrant, voluntary guarding, when listening with stethoscope and applying pressure slight tenderness but not nearly as significant response as when palpating with hand, no rigidity, was able to sit up independently and move forward without pain or difficulty, no pain endorsed when shifting surface below him, positive bowel sounds Extremities: No edema Musculoskeletal: Moving all extremities Neuro: No overt focal neurological deficits Skin: No rashes appreciated Psych: Cooperative Results Lab / Micro Data Result Diagrams: 04/04/22 02:35 04/04/22 02:35 Labs: Laboratory Results - last 24 hr 04/04/22 02:35: WBC 12.0 H, RBC 3.86 L, Hgb 12.9 L, Hct 38.8 L, MCV 100.5 H, MCH 33.4 H, MCHC 33.2, RDW Std Deviation 50.6 H, RDW Coeff of Meek 13.9, Plt Count 344, MPV 10.3, Immature Gran % (Auto) 0.700, Neut % (Auto) 77.1 H, Lymph % (Auto) 13.5 L, [place] % (Auto) 6.9, Eos % (Auto) 1.6, Baso % (Auto) 0.2, Absolute Neuts (auto) 9.3 H, Absolute Lymphs (auto) 1.62, Nucleated RBC % 0 04/04/22 02:35: Sodium 137, Potassium 4.0, Chloride 103, Carbon Dioxide 23.0, Anion Gap 11, BUN 29 H, Creatinine 1.76 H, Estim Creat Clear Calc 36.29, Est GFR (MDRD) Af Amer 50 L, Est GFR (MDRD) Non-Af 41 L, BUN/Creatinine Ratio 16.5, Glucose 98, Calcium 9.3, Total Bilirubin 0.80, Direct Bilirubin 0.23, AST 22, ALT 16, Alkaline Phosphatase 72, Total Protein 6.9, Albumin 2.5 L, Globulin 4.4 H, Lipase 38 L 04/04/22 02:35: Lactic Acid 1.4 04/04/22 04:28: Urine Color Yellow, Urine Clarity Clear, Urine pH 5.0, Ur Specific [place] 1.010, Urine Protein 30 H, Urine Glucose (UA) Normal, Urine Ketones 15 H, Urine Occult Blood Negative, Urine Nitrite Negative, Urine Bilirubin Negative, Urine Urobilinogen Normal, Ur Leukocyte Esterase Negative, Urine RBC 0 SEEN, Urine WBC 0 SEEN, Ur Squamous Epith Cells 0 SEEN, Urine Bacteria 0 SEEN, Urine Mucus 0 SEEN Radiology Impression Abdomen/Pelvis CT 04/04/22 02:18 IMPRESSION: Left lower lobe pneumonia. Cyst in the left lobe of the liver measures 6 mm, segment #3. Bilateral renal cysts, the largest measures 2 cm in diameter. There is irregular wall thickening of the cecum may represent a neoplastic process. There is no evidence of bowel obstruction. Electronically Signed: Deja Cesar MD at 4:10 EST Reading Location ID and State: [facility] / [place] Tel , Service support , Chest X-Ray 04/04/22 04:17 IMPRESSION: No radiographic evidence of acute cardiopulmonary disease. Electronically Signed: Deja Cesar MD at 5:54 EST , Assessment & Plan Assessment/Plan (1) Pneumonia: (2) Abdominal mass: (3) COLD (chronic obstructive lung disease): PLAN: Plan #Community-acquired pneumonia Left lower lobe pneumonia observed on CT scan, has had worsening shortness of breath and O2 in the low 90s Rocephin and doxycycline given azithromycin allergy Urine antigens Sputum culture, COVID, flu, respiratory panel Blood culture sent in ED Incentive spirometry DuoNebs and albuterol as needed #COPD Nebs every 4 as he does this at home and Pulmicort Do not feel he is in exacerbation, did not start systemic steroids #Abdominal mass with abdominal pain Has voluntary guarding but less so when listening with stethoscope and was able to sit up on his own with ease for auscultation and had no reaction to bed being bumped, CT did show irregular wall thickening of the cecum that may represent a neoplastic process and no bowel obstruction Gastroenterology consulted #VARGHESE on CKD stage III unclear subtype Has had significantly poor p.o. intake, received 3 L in ED, given decent volume resuscitation based on weight will monitor closely and consider maintenance pending status after the 3 L #History of DVT 5 years ago Has missed several days of his Eliquis, will resume #DVT ppx: Nitesh Car MD Time spent in the patient's overall evaluation,decision-making process, review of diagnostic data, adjustment of management, discussion with other providers, nursing nursing and ancillary staff involved in patient's care documentation, 60 minutes Charges/Coding Visit Charges Inpatient E&M: 15445 Init Hosp L2
--- NOTE | 2022-04-04 06:54 | EDS_ITS ---
HPI History of Present Illness Chief Complaint: Abd Pain Narrative Narrative: Patient is a 72-year-old male with past medical history of hypertension hyperlipidemia as well as COPD with previous 4 pack a day smoker. He states on Thursday he got some generalized abdominal pain and then had a bowel movement and felt better for approximately a day. He states that the pain began to come back and despite having further bowel movements had no improvement of his pain. He states that pain spiked this evening and secondary to the worsening symptoms comes in for evaluation. He also reports that he has COPD but no need for supplemental oxygen and despite taking his daily inhalers has felt increased shortness of breath. He denies any chest pain associated with this. [facility] Medical History Asthma COPD (chronic obstructive pulmonary disease) HTN (hypertension) Hx of blood clots Home Medications aspirin 81 mg chewable tablet 81 mg PO DAILY@0800 02/03/14 [History Last Taken 08/24/18] budesonide-formoterol HFA 160 mcg-4.5 mcg/actuation aerosol inhaler (Symbicort) 2 puff PO BID 02/03/14 [History Last Taken 08/24/18] ipratropium 0.5 mg-albuterol 3 mg (2.5 mg base)/3 mL nebulization soln 3 ml inhalation Q4H.RT 02/03/14 [History Last Taken 08/24/18] pravastatin 20 mg tablet 10 mg PO QHS 02/03/14 [History Last Taken 08/23/18] albuterol sulfate 90 mcg/actuation aerosol inhaler 2 puff inhalation Q4H PRN PRN Sob &/Or Wheezing 08/24/18 [History Last Taken Unknown] apixaban 5 mg tablet 5 mg PO BID 08/24/18 [History Last Taken 08/24/18] lisinopril 20 mg tablet 20 mg PO DAILY bp 08/24/18 [History Last Taken 08/24/18] metoprolol tartrate 50 mg tablet 50 mg PO BID 08/24/18 [History Last Taken 08/24] Allergy/AdvReac Type Severity Reaction Status Date / Time azithromycin [From Zithromax] Allergy Swelling Verified 04/04/22 01:37 Penicillins Allergy Hives Verified 04/04/22 01:37 shellfish derived Allergy Hives Verified 04/04/22 01:37 venom-honey bee Allergy Hives Verified 04/04/22 01:37 [bee venom (honey bee)] chocolate flavor AdvReac Diarrhea Verified 04/04/22 01:37 Surgical History H/O neck surgery Heart valve replaced History of appendectomy History of hand surgery Social History Smoking Status: Light Smoker (<10/day) ROS ROS ED Constitutional Constitutional ED: Denies chills or fever(s) Eyes Eyes: Denies change in vision ENT ENT ED: Denies sore throat Cardiovascular Cardiovascular: Denies chest pain Respiratory/Chest Respiratory/Chest: Reports dyspnea; Denies cough Gastrointestinal Gastrointestinal: Reports abdominal pain; Denies diarrhea, nausea or vomiting Genitourinary Genitourinary ED: Denies dysuria or hematuria Musculoskeletal Musculoskeletal: Denies myalgias Integumentary Denies rash Neurologic Neurologic: Reports weakness; Denies headache(s) Hematologic/Lymphatic Hematologic/Lymphatic: Reports easy bleeding and easy bruising EXAM Physical Exam Const Vital Signs: 04/04/22 01:34 04/04/22 04:02 04/04/22 05:36 Temperature 98.7 F 98.3 F Temperature Source Temporal Temporal Pulse Rate 131 H 122 H 121 H Respiratory Rate 19 H 23 H 16 Blood Pressure 114/82 H 133/72 H 126/73 H Blood Pressure Mean 92 92 90 Pulse Ox 90 91 94 Oxygen Delivery Method Room Air Room Air Room Air Positive well developed and unkempt General Appearance ED: unkempt and well developed HEENT Reports dry mucous membranes HEENT Narrative: No tongue or lip swelling no oral lesions no airway edema or compromise Mouth ED: Yes dry mucous membranes Mouth: dry mucous membranes Eyes PERRL and EOMs intact bilaterally General Eye ED: Negative for pale conjunctiva Neck supple and no JVD Neck Narrative: No nuchal rigidity or meningeal signs noted Resp Resp Narrative: Patient is tachypneic with diminished breath sounds throughout with diffuse expiratory wheeze consistent with history of COPD. Cardio regular rhythm Rate: tachycardic and other Other Details: Radial pulses are plus 2 out of 4 bilaterally are equal and symmetric GI non-distended GI Narrative: Abdomen is soft and nondistended with normoactive bowel sounds. There is di ffuse pain on palpation but he has voluntary guarding in the right lower quadrant. No pulsatile mass or fluid wave noted Auscultation: normoactive bowel sounds Palpation: soft Extremity normal to inspection Extremity Narrative: Negative Homans' sign bilaterally Neuro oriented x3 and CN's II-XII intact bilaterally Sensorium / Orientation: alert Psych mental status grossly normal Appearance: unkempt Skin Skin Narrative: Skin turgor is increased General Skin Exam: Negative for jaundice MDM MDM MDM Narrative Medical decision making narrative: Patient presented to the ER afebrile but he was tachypneic and tachycardic. He had severe pain in the right lower abdomen with voluntary guarding and secondary to this there is concern for an underlying intestinal infection. Basic blood work was obtained which shows an elevated white blood cell count but normal lactic acid value. Kidney function is around baseline indicating chronic renal insufficiency without severe electrolyte derangement. Urine showed no signs of infection. The CT of the abdomen and pelvis with IV contrast displayed thickening of the intestine near the cecum which is where he has his pain concerning for neoplastic mass. It also showed the lower lung wu and touches a left lower lobe pneumonia which could correlate with his white count and increased work of breathing. At this time patient is tachycardic and tachypneic with a white blood cell count and pulse ox at approximately 90%. He is developing SIRS criteria and I feel would be in his best interest to stay in the hospital for IV antibiotics. Moreover he can then get the abdominal mass evaluated and pain medication can be provided to help control symptoms. Secondary to this need medicine was contacted and they do agree to accept the patient and therefore he will be admitted at this time. Lab Data Attestation: I reviewed the patient's lab results. Labs: Laboratory Results - last 24 hr 04/04/22 04/04/22 04/04/22 02:35 02:35 02:35 WBC 12.0 H RBC 3.86 L Hgb 12.9 L Hct 38.8 L MCV 100.5 H MCH 33.4 H MCHC 33.2 RDW Std Deviation 50.6 H RDW Coeff of Meek 13.9 Plt Count 344 MPV 10.3 Immature Gran % (Auto) 0.700 Neut % (Auto) 77.1 H Lymph % (Auto) 13.5 L [place] % (Auto) 6.9 Eos % (Auto) 1.6 Baso % (Auto) 0.2 Absolute Neuts (auto) 9.3 H Absolute Lymphs (auto) 1.62 Nucleated RBC % 0 Sodium 137 Potassium 4.0 Chloride 103 Carbon Dioxide 23.0 Anion Gap 11 BUN 29 H Creatinine 1.76 H Estim Creat Clear Calc 36.29 Est GFR (MDRD) Af Amer 50 L Est GFR (MDRD) Non-Af 41 L BUN/Creatinine Ratio 16.5 Glucose 98 Lactic Acid 1.4 Calcium 9.3 Total Bilirubin 0.80 Direct Bilirubin 0.23 AST 22 ALT 16 Alkaline Phosphatase 72 Total Protein 6.9 Albumin 2.5 L Globulin 4.4 H Lipase 38 L Urine Color Urine Clarity Urine pH Ur Specific [place] Urine Protein Urine Glucose (UA) Urine Ketones Urine Occult Blood Urine Nitrite Urine Bilirubin Urine Urobilinogen Ur Leukocyte Esterase Urine RBC Urine WBC Ur Squamous Epith Cells Urine Bacteria Urine Mucus 04/04/22 04:28 WBC RBC Hgb Hct MCV MCH MCHC RDW Std Deviation RDW Coeff of Meek Plt Count MPV Immature Gran % (Auto) Neut % (Auto) Lymph % (Auto) [place] % (Auto) Eos % (Auto) Baso % (Auto) Absolute Neuts (auto) Absolute Lymphs (auto) Nucleated RBC % Sodium Potassium Chloride Carbon Dioxide Anion Gap BUN Creatinine Estim Creat Clear Calc Est GFR (MDRD) Af Amer Est GFR (MDRD) Non-Af BUN/Creatinine Ratio Glucose Lactic Acid Calcium Total Bilirubin Direct Bilirubin AST ALT Alkaline Phosphatase Total Protein Albumin Globulin Lipase Urine Color Yellow Urine Clarity Clear Urine pH 5.0 Ur Specific [place] 1.010 Urine Protein 30 H Urine Glucose (UA) Normal Urine Ketones 15 H Urine Occult Blood Negative Urine Nitrite Negative Urine Bilirubin Negative Urine Urobilinogen Normal Ur Leukocyte Esterase Negative Urine RBC 0 SEEN Urine WBC 0 SEEN Ur Squamous Epith Cells 0 SEEN Urine Bacteria 0 SEEN Urine Mucus 0 SEEN Radiography Diagnostic Testing: Clinical Impression(s) from Imaging Studies Abdomen/Pelvis CT 04/04/22 02:18 IMPRESSION: Left lower lobe pneumonia. Cyst in the left lobe of the liver measures 6 mm, segment #3. Bilateral renal cysts, the largest measures 2 cm in diameter. There is irregular wall thickening of the cecum may represent a neoplastic process. There is no evidence of bowel obstruction. Electronically Signed: Deja Cesar MD at 4:10 EST , Chest X-Ray 04/04/22 04:17 IMPRESSION: No radiographic evidence of acute cardiopulmonary disease. Electronically Signed: Deja Cesar MD at 5:54 EST , 1 view chest x-ray as interpreted by the emergency medicine physician reveals chronic changes consistent with COPD but no acute infiltrate pneumothorax or pleural effusion Discharge Plan Triage Chief Complaint: Abd Pain ED Provider: Holger Sher Dx/Rx/DC Orders Clinical Impression: Pneumonia, SIRS (systemic inflammatory response syndrome), Abdominal mass, Tobacco dependence syndrome Prescriptions: No Action aspirin 81 MG tablet,chewable 81 mg PO DAILY@0800 Label Comments: [facility] pravastatin 20 MG tablet 10 mg PO QHS Label Comments: CHOLESTEROL LOWERING budesonide-formoterol [Symbicort] 1 INHALER inhaler 2 puff PO BID Label Comments: COPD ipratropium-albuterol 3 ML solution for nebulization 3 ml inhalation Q4H.RT Label Comments: COPD metoprolol tartrate 50 MG tablet 50 mg PO BID apixaban 5 MG tablet 5 mg PO BID lisinopril 20 MG tablet 20 mg PO DAILY albuterol sulfate 18 GM HFA aerosol inhaler 2 puff inhalation Q4H PRN PRN (Reason: Sob &/Or Wheezing) Primary Care Provider: Cherelle Cutler Referrals: Cherelle Cutler DO [Primary Care Provider] - Disposition Disposition: Acute Care Hospital [facility]
[2022-04-04] MEDS: Ipratropium/Albuterol Sulfate 3 ML AMPUL.NEB INHALATION ×4 (07:22→19:28)
[2022-04-04] MEDS: 0.9% Saline Lock 10 ML Syringe IV ×2 (10:10→20:59)
[2022-04-04] MEDS: Aspirin 81 MG TAB.CHEW PO (10:51)
[2022-04-04] MEDS: APIXABAN 5 MG TABLET PO ×2 (10:51→22:21)
[2022-04-04] MEDS: Metoprolol Tartrate 50 MG Tablet PO ×2 (10:51→22:22)
[2022-04-04] MEDS: Ceftriaxone 1 GM/50 mL Premix x1 IV (10:51)
--- NOTE | 2022-04-04 12:30 | CASEMGMT ---
RN CM Face to Face with patient for initial transition planning/care coordination assessment. RN CM introduced self and role at [facility]. Patient lying in bed, alert and oriented. Patient willing to participate in assessment and is able to answer all questions appropriately. Care providers, pharmacy, and demographics verified. Patient wishes to discharge home, denies need for home health at this time. Patient states he has no further needs or concerns at this time. CM to follow for discharge planning needs that may arise. PCP: Omayra Specialists: jonathan Arnold Preferred Pharmacy: [facility] Insurance: [employer] Prescription Benefit: yes Living Will/HPOA: yes, Abigail Oliva LNOK: Living Arrangements: Patient lives with in a mobile home with 5 steps and railing to enter the home. Patient states he is independent at home. Transportation: self, DME/HHC: Patient has cane, walker, nebulizer at home. Will monitor for home oxygen at discharge, patient prefers [employer]. Patient has previously been to [facility]. Disposition Plan: Patient to discharge home with family support and follow-up plans in place. Ayse MELISSA, RN, CM
--- NOTE | 2022-04-04 19:04 | CON.PCM.GI_ITS ---
HPI Consult Data Date of Consult: 04/04/22 HPI Narrative Reason for Consultation: Abnormal CT scan HPI Narrative: DARRYN ROMAN, is a 72 M who presents with worsening abdominal pain. He has a past medical history of hypertension hyperlipidemia as well as COPD with previous 4 pack a day smoker.? He states on Thursday he got some generalized abdominal pain and then had a bowel movement and felt better for approximately a day.? He states that the pain began to come back and despite having further bowel movements had no improvement of his pain.? He states that pain spiked this evening and secondary to the worsening symptoms comes in for evaluation.? He also reports that he has COPD but no need for supplemental oxygen and despite taking his daily inhalers has felt increased shortness of breath. CT abdomen showed left lower lobe pneumonia as well as irregular wall thickening in the cecum which may represent a neoplastic process, no bowel obstruction.? Pain significantly improved with morphine.?? ? [facility] Medical History Asthma COPD (chronic obstructive pulmonary disease) HTN (hypertension) Hx of blood clots Home Medications aspirin 81 mg chewable tablet 81 mg PO DAILY@0800 02/03/14 [History Last Taken 08/24/18] budesonide-formoterol HFA 160 mcg-4.5 mcg/actuation aerosol inhaler (Symbicort) 2 puff PO BID 02/03/14 [History Last Taken 08/24/18] ipratropium 0.5 mg-albuterol 3 mg (2.5 mg base)/3 mL nebulization soln 3 ml inhalation Q4H.RT 02/03/14 [History Last Taken 08/24/18] pravastatin 20 mg tablet 10 mg PO QHS 02/03/14 [History Last Taken 08/23/18] albuterol sulfate 90 mcg/actuation aerosol inhaler 2 puff inhalation Q4H PRN PRN Sob &/Or Wheezing 08/24/18 [History Last Taken Unknown] apixaban 5 mg tablet 5 mg PO BID 08/24/18 [History Last Taken 08/24/18] lisinopril 20 mg tablet 20 mg PO DAILY bp 08/24/18 [History Last Taken 08/24/18] metoprolol tartrate 50 mg tablet 50 mg PO BID 08/24/18 [History Last Taken 08/24/18] Allergy/AdvReac Type Severity Reaction Status Date / Time azithromycin [From Zithromax] Allergy Swelling Verified 04/04/22 01:37 Penicillins Allergy Hives Verified 04/04/22 01:37 shellfish derived Allergy Hives Verified 04/04/22 01:37 venom-honey bee Allergy Hives Verified 04/04/22 01:37 [bee venom (honey bee)] chocolate flavor AdvReac Diarrhea Verified 04/04/22 01:37 Surgical History H/O neck surgery Heart valve replaced History of appendectomy History of hand surgery Social History Smoking Status: Light Smoker (<10/day) ROS ROS Narrative General: Denies fever, positive chills, denies weight change HENT: Slight headache, denies stuffy nose, denies sore throat EYES: Denies changes in vision Resp: Sporadic cough with occasional sputum production primarily on exertion, worsening shortness of breath over the past month primarily on exertion Cardiac: Denies chest pain GI: Right lower quadrant abdominal pain with some accompanying diarrhea, did not have nausea until he received pain medication in the ED : Denies changes in urination Extremity: Denies swelling MSK: Denies weakness Neuro: Denies any numbness, denies tingling Heme: Denies any bleeding or bruising Skin: Denies rashes Psychiatric: No complaints voiced Physical Exam Narrative General: Alert, oriented, no apparent distress HEENT: Atraumatic, normocephalic Eyes: Anicteric, normal conjunctiva, extraocular movements grossly intact Neck: Supple Respiratory: Somewhat coarse left lower lobe, normal respiratory effort Cardiovascular: Regular rate and rhythm GI: Soft, nondistended, somewhat tender diffusely primarily in right lower quadrant, voluntary guarding, when listening with stethoscope and applying pressure slight tenderness but not nearly as significant response as when palpating with hand, no rigidity, was able to sit up independently and move forward without pain or difficulty, no pain endorsed when shifting surface below him, positive bowel sounds Extremities: No edema Musculoskeletal: Moving all extremities Neuro: No overt focal neurological deficits Skin: No rashes appreciated Psych: Cooperative Medical Records Data Medical Nutrition Assessment Dietitian: Malnutrition Criteria Met Start: 04/04/22 14:42 Freq: Status: Active Protocol: Document 04/04/22 14:43 (Rec: 04/04/22 14:43 [id number]) Nutrition Malnutrition Evidence of Malnutrition Exists Yes Malnutrition (severe): Acute Illness/Injury Evidenced By Suboptimal Energy Intake ( Severe),Weight Loss (Severe) Clinical Problem Acute Disease or Injury Related Malnutrition Etiology severe, acute malnutrition related to inadequate energy intake d/t GI dysfunction Signs/Symptoms as evidenced by unintentional 20.8#/13% wt loss x 1 month; estimated PO intake meeting < 50% of estimated energy needs >1 month Status Active Problem Recommendation Dietitian Recommendations/Changes recommend advance diet as tolerated to regular; ensure w / medpass when PO diet is advanced given signs/symptoms of malnutrition Lab / Micro Data Result Diagrams: 04/04/22 02:35 04/04/22 02:35 Labs: Laboratory Results - last 24 hr 04/04/22 02:35: WBC 12.0 H, RBC 3.86 L, Hgb 12.9 L, Hct 38.8 L, MCV 100.5 H, MCH 33.4 H, MCHC 33.2, RDW Std Deviation 50.6 H, RDW Coeff of Meek 13.9, Plt Count 344, MPV 10.3, Immature Gran % (Auto) 0.700, Neut % (Auto) 77.1 H, Lymph % (Auto) 13.5 L, [place] % (Auto) 6.9, Eos % (Auto) 1.6, Baso % (Auto) 0.2, Absolute Neuts (auto) 9.3 H, Absolute Lymphs (auto) 1.62, Nucleated RBC % 0 04/04/22 02:35: Sodium 137, Potassium 4.0, Chloride 103, Carbon Dioxide 23.0, Anion Gap 11, BUN 29 H, Creatinine 1.76 H, Estim Creat Clear Calc 36.29, Est GFR (MDRD) Af Amer 50 L, Est GFR (MDRD) Non-Af 41 L, BUN/Creatinine Ratio 16.5, Glucose 98, Calcium 9.3, Total Bilirubin 0.80, Direct Bilirubin 0.23, AST 22, ALT 16, Alkaline Phosphatase 72, Total Protein 6.9, Albumin 2.5 L, Globulin 4.4 H, Lipase 38 L 04/04/22 02:35: Lactic Acid 1.4 04/04/22 04:28: Urine Color Yellow, Urine Clarity Clear, Urine pH 5.0, Ur Specific [place] 1.010, Urine Protein 30 H, Urine Glucose (UA) Normal, Urine Ketones 15 H, Urine Occult Blood Negative, Urine Nitrite Negative, Urine Bilirubin Negative, Urine Urobilinogen Normal, Ur Leukocyte Esterase Negative, Urine RBC 0 SEEN, Urine WBC 0 SEEN, Ur Squamous Epith Cells 0 SEEN, Urine Bacteria 0 SEEN, Urine Mucus 0 SEEN Micro: Microbiology 04/04/22 09:47 Mucosa - Nasopharyngeal Respiratory Panel (PCR) - Final 04/04/22 10:00 Nasal Secretion SARS-CoV-2 & FLU Antigen (Rapid) - Final 04/04/22 04:28 Urine, Clean Catch Streptococcus pneumoniae Antigen (M - Final 04/04/22 04:28 Urine, Clean Catch Legionella Antigen - Final Radiology Impression Abdomen/Pelvis CT 04/04/22 02:18 IMPRESSION: Left lower lobe pneumonia. Cyst in the left lobe of the liver measures 6 mm, segment #3. Bilateral renal cysts, the largest measures 2 cm in diameter. There is irregular wall thickening of the cecum may represent a neoplastic process. There is no evidence of bowel obstruction. Electronically Signed: Deja Cesar MD at 4:10 EST , Chest X-Ray 04/04/22 04:17 IMPRESSION: No radiographic evidence of acute cardiopulmonary disease. Electronically Signed: Deja Cesar MD at 5:54 EST , Assessment & Plan Assessment/Plan (1) Abdominal mass: PLAN: Plan Abdominal mass with abdominal pain The differential diagnosis does include a neoplastic process such as adenoca rcinoma of the cecum. Also differential diagnosis does include ischemia colitis involving the cecum and or typhlitis. Recommendation is a colonoscopy to evaluate his lower GI tract. He was explained alternatives, risk, benefits including outstanding bleeding, infection, sepsis, perforation, need for emergent and . Have an ASA of 3. Charges/Coding Visit Charges Inpatient E&M: 58952 Init Hosp L2
[2022-04-04] MEDS: Budesonide Respules 0.5 MG/2 ML AMPUL.NEB. INHALATION (19:28)
[2022-04-04] MEDS: Bisacodyl 5 MG Tablet 20 MG PO (20:56)
[2022-04-04] MEDS: Polyethylene Glycol 3350 BOWEL PREP PO (20:57)
[2022-04-04] MEDS: Pravastatin 20 MG Tablet 10 MG PO (22:22)
[2022-04-04] MEDS: Doxycycline 100 MG CAPSULE PO (22:22)
[2022-04-05] VITALS (20 sets, daily range): BP systolic 82–105; BP diastolic 53–73; PULSE 76–105; RESP 18–20; TEMP 36.2–36.8; O2SAT 88–98
[2022-04-05] MEDS: Ipratropium/Albuterol Sulfate 3 ML AMPUL.NEB INHALATION ×5 (00:59→20:07)
[2022-04-05] MEDS: Albuterol 2.5 MG/3 ML VIAL.NEB. INHALATION (03:24)
[2022-04-05] MEDS: Ondansetron 4 MG/2 ML Vial IV ×2 (04:01→23:24)
[2022-04-05] MEDS: 0.9% Saline Lock 10 ML Syringe IV (04:01)
[2022-04-05 06:52] LABS: Absolute Lymphocyte Count 1.46 X10^3/uL (0.83-4.51); Absolute Neutrophil Count 8.4 X10^3/uL (2.0-7.7); Basophil# 0.04 X10^3/uL; Basophil% 0.4 % (0-1); Eosinophil# 0.24 X10^3/uL; Eosinophils% 2.2 % (0-5); Hematocrit 35.8 % (40-54); Hemoglobin 11.9 g/dL (13.0-16.5); Lymphocyte # 1.46 X10^3/ul (0.83-4.51); Lymphocyte % 13.4 % (19-41); Mean Corp Hgb Conc 33.2 g/dL (32-36); Mean Corpuscular Hgb 33.4 pg (27.0-32.0); Mean Corpuscular Volume 100.6 fL (80-94); Mean Platelet Vol. 9.7 fl (6.2-12.0); Monocyte# 0.71 X10^3/uL; Monocyte% 6.5 % (0-10); NRBC Flagged by Analyzer 0 % (0-5); Neutrophil # 8.39 X10^3/uL (2.7-7.7); Neutrophil % 76.8 % (47-70); Platelet Count 349 K/mm3 (150-450); RBC Distribution Width CV 13.8 % (11.6-14.6); RBC Distribution Width SD 51.2 fl (35.1-43.9); Red Blood Count 3.56 M/mm3 (4.6-6.2); White Blood Count 10.9 K/mm3 (4.4-11.0)
[2022-04-05 06:55] LABS: ALB/GLOB Ratio 0.5 RATIO (0.9-2.4); AST(SGOT) 28 U/L (15-37); Alanine Aminotransfer ALT/SGPT 16 U/L (16-61); Albumin, Serum 2.3 g/dL (3.2-5.0); Alkaline Phosphatase 69 U/L (45-117); Anion Gap 11 (5-15); BUN 26 mg/dL (7-18); BUN/Creat Ratio 16.9 RATIO (10-20); Calcium,Total 8.7 mg/dL (8.5-10.1); Chloride 103 mmol/L (98-107); Creatinine, Serum 1.54 mg/dL (0.70-1.30); EST Glomerular Filtration Rate 48 mL/min (>60); Est Glom Filt Rate - Afr Amer 58 mL/min (>60); Estimated Creatinine Clearance 41.29 ml/min; Globulin 4.3 g/dL (2.2-4.2); Glucose 85 mg/dL (74-106); Potassium 4.3 mmol/L (3.5-5.1); Protein, Total 6.6 g/dL (6.4-8.2); Sodium Level 133 mmol/L (136-145)
[2022-04-05] MEDS: Budesonide Respules 0.5 MG/2 ML AMPUL.NEB. INHALATION ×2 (07:19→20:07)
--- NOTE | 2022-04-05 09:05 | COLBX_PTH ---
PATIENT: DARRYN ROMAN LOC: [facility]#:[id number] AGE/SX: 72/M ROOM: [facility] RE04/04/[address]: Dr. Berlin Michael MD : 1950 BED: 1 DIS: 04/06/2022 SPEC #: [id number] RECD: 04/05/22 09:41 STATUS: BARBARA BELL #: [id number] AJAY: 04/05/22 09:[address]: Ramesh Conrad DEPT: SURGICAL PATHOLOGY RECD BY: Daisy Doran ENTERED: 04/07/22 08:55 SP TYPE: COLON BX OTHR DR: DO Dr. Berlin Douglas MD Dr. Paige Pierce, MD Tissues: A - Cecum, NOS B - COLON BIOPSY Procedures: Surgery Specimen Level IV Comments: @ Ordering doctor for SUIV edited from to @ by LALY at 04/07/22 1454 @ Submitting doctor edited from to @ by RGOOD at 04/07/22 1453 HEADER OPERATION: Colonoscopy (MAC) PRE-OP DIAGNOSIS: Abdominal mass TISSUE SUBMITTED: A ? Cecal mass biopsy, B ? Random colon biopsies MICROSCOPIC DIAGNOSIS A. Cecal mass, biopsy: Fragments of colonic mucosa with extensive ulceration and fibrinopurulent exudation. Negative for malignancy. B. Colon, random biopsy: Fragments of colonic mucosa, no pathologic diagnosis. SJ:marisa 04/08/2022 COMMENT Correlation with clinical, endoscopic findings and appropriate follow up are necessary. Case has been reviewed in consultation with Dr. Hayward who concurs with the above diagnosis. IDC:AM MICROSCOPIC DESCRIPTION Slides are reviewed. GROSS DESCRIPTION A - Received in fixative is one container labeled with the patient's name and designated cecal mass biopsy. The specimen consists of multiple irregular fragments of light yusuf soft tissue that in aggregate measure 1.5 x 1.0 x 0.1 cm. The specimen is totally submitted in one cassette. B - Received in fixative is one container labeled with the patient's name and designated random colon biopsy. The specimen consists of multiple irregular fragments of light yusuf soft tissue that in aggregate measure 1.5 x 0.5 x 0.1 cm. The specimen is totally submitted in one cassette. / SJ:rg 04/07/2022 TC:2 CPT: 66510 x2
--- NOTE | 2022-04-05 09:41 | OP.COLON_ITS ---
Patient Name: Marcos Oliva Procedure Date: 04/05/2022 8:45 AM Date of : 1950 Age: 72 Procedure: Colonoscopy Indications: Abnormal CT of the GI tract, Abdominal pain in the right lower quadrant, Anemia, Iron deficiency anemia secondary to chronic blood loss, Change in bowel habits Providers: Ramesh Conrad DO Medicines: Monitored Anesthesia Care Patient Profile: This is a 72 year old male. Refer to note in patient chart for documentation of history and physical. Last Colonoscopy: none. The patient's first colonoscopy is today. Complications: No immediate complications. Procedure: Pre-Anesthesia Assessment: - Prior to the procedure, a History and Physical was performed, and patient medications and allergies were reviewed. The risks and benefits of the procedure and the sedation options and risks were discussed with the patient. All questions were answered and informed consent was obtained. Patient identification and proposed procedure were verified by the physician. Mental Status Examination: normal. Prophylactic Antibiotics: The patient does not require prophylactic antibiotics. Prior Anticoagulants: The patient has taken no previous anticoagulant or antiplatelet agents. ASA Grade Assessment: II - A patient with mild systemic disease. After reviewing the risks and benefits, the patient was deemed in satisfactory condition to undergo the procedure. The anesthesia plan was to use monitored anesthesia care (MAC). Immediately prior to administration of medications, the patient was re-assessed for adequacy to receive sedatives. The heart rate, respiratory rate, oxygen saturations, blood pressure, adequacy of pulmonary ventilation, and response to care were monitored throughout the procedure. The physical status of the patient was re-assessed after the procedure. After I obtained informed consent, the scope was passed under direct vision. Throughout the procedure, the patient's blood pressure, pulse, and oxygen saturations were monitored continuously. The colonoscope was introduced through the anus and advanced to the ileocecal valve. The colonoscopy was performed without difficulty. The patient tolerated the procedure well. The quality of the bowel preparation was fair. Scope In: 9:05:59 AM Scope Withdrawal Time 0 hours 16 minutes 29 seconds Scope Out: 9:27:28 AM Total Procedure Duration Time 0 hours 21 minutes 29 seconds Findings: The perianal and digital rectal examinations were normal. An ulcerated non-obstructing medium-sized mass was found in the cecum. The mass was non-circumferential. The mass measured one cm in length. In addition, its diameter measured five mm. Oozing was present. This was biopsied with a cold forceps for histology and diagnostic purposes. An area of mildly congested mucosa was found in the recto-sigmoid colon, in the sigmoid colon, in the descending colon and in the transverse colon. Biopsies were taken with a cold forceps for histology. Verification of patient identification for the specimen was done. Estimated blood loss was minimal. Impression: - Preparation of the colon was fair. - Likely benign tumor in the cecum. Biopsied. - Congested mucosa in the recto-sigmoid colon, in the sigmoid colon, in the descending colon and in the transverse colon. Biopsied. Recommendation: - [facility]. - Resume regular diet. - Continue present medications. - Flagyl 500 mg p.o. every 12 hours, Levaquin 500 mg p.o. daily, prednisone 40 mg a day - Work-up for inflammatory bowel disease as I suspect this is likely Crohn's disease - I will draw QuantiFERON gold, hepatitis profile in anticipation for biologic therapy for Crohn's disease. - Await pathology results. - Repeat colonoscopy in 4 months to assess disease activity. Procedure Code(s): --- Professional --- 19697, Colonoscopy, flexible; with biopsy, single or multiple CPT copyright 2017 [employer]. All rights reserved. The codes documented in this report are preliminary and upon upset operator review may be revised to meet current compliance requirements. Ramesh Conrad DO 04/05/2022 9:39:53 AM This report has been signed electronically. Number of Addenda: 0 Note Initiated On: 04/05/2022 8:45 AM
--- NOTE | 2022-04-05 09:41 | OP.CCLET_ITS ---
04/05/2022 Cherelle Olmedo Do Re : Colonoscopy procedure for Marcos Oliva Dear Shara This procedure was performed on Tuesday, April 05, 2022. My impressions and recommendations are as follows: Impressions : - Preparation of the colon was fair. - Likely benign tumor in the cecum. Biopsied. - Congested mucosa in the recto-sigmoid colon, in the sigmoid colon, in the descending colon and in the transverse colon. Biopsied. Recommendations : - [facility]. - Resume regular diet. - Continue present medications. - Flagyl 500 mg p.o. every 12 hours, Levaquin 500 mg p.o. daily, prednisone 40 mg a day - Work-up for inflammatory bowel disease as I suspect this is likely Crohn's disease - I will draw QuantiFERON gold, hepatitis profile in anticipation for biologic therapy for Crohn's disease. - Await pathology results. - Repeat colonoscopy in 4 months to assess disease activity. My findings are described in the full procedure note, which is enclosed. If I can be of further assistance, please feel free to contact me at . Sincerely, Ramesh Conrad DO 04/05/2022 9:39:53 AM This report has been signed electronically.
[2022-04-05] MEDS: levoFLOXacin 500 MG Tablet PO (10:28)
[2022-04-05] MEDS: guaiFENesin 1,200 MG Tablet 1200 MG PO (10:28)
[2022-04-05] MEDS: metroNIDAZOLE 500 MG Tablet PO (10:28)
[2022-04-05] MEDS: Aspirin 81 MG TAB.CHEW PO (10:29)
[2022-04-05] MEDS: Metoprolol Tartrate 50 MG Tablet PO (10:31)
[2022-04-05 11:18] LABS: Erythrocyte Sedimentation Rate 49 mm/hr (0-20)
--- NOTE | 2022-04-05 12:08 | PN.HOSP_ITS ---
Subjective Subjective Doing well, no issues overnight. Feels better than when he came in Objective Data Objective Data Vital Signs: Vital Signs Temp Pulse Resp BP Pulse Ox O2 Del Method O2 Flow Rate 97.6 F L 76 18 105/62 93 Nasal Cannula 3 04/05/22 10:15 04/05/22 11:45 04/05/22 11:45 04/05/22 10:31 04/05/22 11:45 04/05/22 11:45 04/05/22 11:45 Oxygen Flow Rate (L/min) 3 Oxygen Delivery Method Nasal Cannula Weight: 144 lb 3.199 oz Body Mass Index (BMI) 21.2 Intake & Output: Intake and Output for Last 24 Hours 04/04/22 04/05/22 04/06/22 03:59 03:59 03:59 Intake Total 1360 / 1360 50 / 50 Output Total / Balance 1359 / 1359 50 / 50 Medical Nutrition Assessment Dietitian: Malnutrition Criteria Met Start: 04/04/22 14:42 Freq: Status: Active Protocol: Document 04/04/22 14:43 AG (Rec: 04/04/22 14:43 AG [id number]) Nutrition Malnutrition Evidence of Malnutrition Exists Yes Malnutrition (severe): Acute Illness/Injury Evidenced By Suboptimal Energy Intake ( Severe),Weight Loss (Severe) Clinical Problem Acute Disease or Injury Related Malnutrition Etiology severe, acute malnutrition related to inadequate energy intake d/t GI dysfunction Signs/Symptoms as evidenced by unintentional 20.8#/13% wt loss x 1 month; estimated PO intake meeting < 50% of estimated energy needs >1 month Status Active Problem Recommendation Dietitian Recommendations/Changes recommend advance diet as tolerated to regular; ensure w / medpass when PO diet is advanced given signs/symptoms of malnutrition Lab / Micro Data Result Diagrams: 04/05/22 05:46 04/05/22 05:15 Labs: Laboratory Results - last 24 hr 04/05/22 05:15: Sodium 133 L, Potassium 4.3, Chloride 103, Carbon Dioxide 19.0 L , Anion Gap 11, BUN 26 H, Creatinine 1.54 H, Estim Creat Clear Calc 41.29, Est GFR (MDRD) Af Amer 58 L, Est GFR (MDRD) Non-Af 48 L, BUN/Creatinine Ratio 16.9, Glucose 85, Calcium 8.7, Total Bilirubin 0.50, AST 28, ALT 16, Alkaline Phosphatase 69, Total Protein 6.6, Albumin 2.3 L, Globulin 4.3 H, Albumin/Globulin Ratio 0.5 L 04/05/22 05:46: WBC 10.9, RBC 3.56 L, Hgb 11.9 L, Hct 35.8 L, MCV 100.6 H, MCH 33.4 H, MCHC 33.2, RDW Std Deviation 51.2 H, RDW Coeff of Meek 13.8, Plt Count 349, MPV 9.7, Immature Gran % (Auto) 0.700, Neut % (Auto) 76.8 H, Lymph % (Auto) 13.4 L, [place] % (Auto) 6.5, Eos % (Auto) 2.2, Baso % (Auto) 0.4, Absolute Neuts (auto) 8.4 H, Absolute Lymphs (auto) 1.46, Nucleated RBC % 0 04/05/22 10:40: ESR 49 H 04/05/22 10:40: C-React Prot Ext Range 134.00 H Micro: Microbiology 04/04/22 09:47 Mucosa - Nasopharyngeal Respiratory Panel (PCR) - Final 04/04/22 10:00 Nasal Secretion SARS-CoV-2 & FLU Antigen (Rapid) - Final 04/04/22 04:28 Urine, Clean Catch Streptococcus pneumoniae Antigen (M - Final 04/04/22 04:28 Urine, Clean Catch Legionella Antigen - Final Physical Exam Narrative General: Alert, Oriented, Cooperative, No apparent distress HEENT: Atraumatic, PERRLA, EOMI, Normocephalic Oral: Moist Mucosa Neck: Supple, No JVD Lungs: Diminished, Normal air movement, No rhonchi, No wheeze, No rales Cardiovascular: Regular rate, Regular Rhythm, Normal S1, Normal S2, No murmurs Abdomen: Soft, Mild TTP RLQ, Non-Distended, No Hepato-splenomegaly Extremities: No edema, Capillary Refill Less than 3 Seconds Skin: No rashes, No breakdown Musculoskeletal: No Tenderness to Palpation of Joints or Extremities Neurological: Cranial nerves II-XII grossly intact, Motor Exam 5/5 strength throughout, Sensory exam intact to light touch and pain Psych/Mental Status: Normal Affect, Appropriate Assessment & Plan Assessment/Plan (1) Pneumonia: (2) Abdominal mass: (3) COLD (chronic obstructive lung disease): PLAN: Plan 1. Community-acquired pneumonia/COPD ? Initially started on Rocephin and doxycycline however based on colonoscopy today he was also started on Levaquin and Flagyl therefore we will discontinue his Rocephin and doxycycline with Levaquin should cover his pneumonia ? Sputum cultures are pending, COVID and flu as well as respiratory panel were all negative ? He is not in the exacerbation of his COPD, but will continue with inhalers 2. Abdominal mass ? Colonoscopy today demonstrates a possible benign lesion in the cecum there is also evidence of some inflammation consistent with Crohn's ? Continue systemic steroids per GI, as well as levaquin and flagyl ? Appreciate GIs assistance 3. HTN/HLD ? Blood pressures stable we will can resume his home metoprolol next ? Resume lisinopril as well as pravastatin 4. History of DVT ? Continue with Eliquis 5. CKD 3 a ? No signs of VARGHESE on admission ? Renal function is at baseline DVT: Eliquis Charges/Coding Visit Charges Inpatient E&M: 39403 Subs Hosp L2
[2022-04-05] MEDS: APIXABAN 5 MG TABLET PO (12:17)
[2022-04-06] VITALS (9 sets, daily range): BP systolic 93–112; BP diastolic 64–75; PULSE 90–107; RESP 17–20; TEMP 36.4–36.9; O2SAT 87–96
[2022-04-06] MEDS: Ipratropium/Albuterol Sulfate 3 ML AMPUL.NEB INHALATION ×3 (00:54→10:59)
[2022-04-06] MEDS: levoFLOXacin 250 MG Tablet PO (05:36)
[2022-04-06] MEDS: 0.9% Saline Lock 10 ML Syringe IV (05:42)
[2022-04-06] MEDS: Budesonide Respules 0.5 MG/2 ML AMPUL.NEB. INHALATION (07:05)
[2022-04-06] MEDS: APIXABAN 5 MG TABLET PO (08:10)
[2022-04-06] MEDS: Metoprolol Tartrate 50 MG Tablet PO (08:10)
[2022-04-06] MEDS: metroNIDAZOLE 500 MG Tablet PO (08:10)
[2022-04-06] MEDS: Aspirin 81 MG TAB.CHEW PO (08:10)
--- NOTE | 2022-04-06 10:53 | DCINST_ITS ---
Discharge Instructions Diet Discharge Diet: Low fat / Low cholesterol Activity Discharge Activity: Return to Normal Activity Dressing / Incision Call your doctor if you observe: Fever of 101 or Higher, Shortness of breath, Dizziness, Fainting spells, Swelling in the ankles, Chest pain and Increased palpitations (irregular heartbeat) Follow Up Care Test Results: Test results from this visit will be discussed in further detail at your follow- up appointment, if applicable. Discharge Plan Admission Admit Date/Time: 04/04/22 06:22 Attending Provider: Berlin Michael Primary Care Provider: Cherelle Cutler Consulting Providers: Emilee Car Instructions Additional Instructions / Restrictions: Follow-up with your PCP in 3 to 5 days to obtain outpatient lab work Discharge Orders/Prescriptions Prescriptions: New metronidazole 500 mg Tablet 500 mg PO BID 7 Days Qty: 14 0RF levofloxacin 250 mg Tablet 250 mg PO DAILY@0600 7 Days Qty: 7 0RF prednisone 20 mg tablet 40 mg PO DAILY 30 Days Qty: 60 0RF Continued aspirin 81 MG tablet,chewable 81 mg PO DAILY@0800 Label Comments: [facility] pravastatin 20 MG tablet 10 mg PO QHS Label Comments: CHOLESTEROL LOWERING budesonide-formoterol [Symbicort] 1 INHALER inhaler 2 puff PO BID Label Comments: COPD ipratropium-albuterol 3 ML solution for nebulization 3 ml inhalation Q4H.RT Label Comments: COPD metoprolol tartrate 50 MG tablet 50 mg PO BID apixaban 5 MG tablet 5 mg PO BID lisinopril 20 MG tablet 20 mg PO DAILY albuterol sulfate 18 GM HFA aerosol inhaler 2 puff inhalation Q4H PRN PRN (Reason: Sob &/Or Wheezing) Referrals / Follow Up: Cherelle Cutler DO [Primary Care Provider] - Within 1 Week Ramesh Conrad DO [Med Staff - Active Staff] - Within 1 Month Disposition Disposition (needs filled in before D/C Order can be placed): Home, Self Care
--- NOTE | 2022-04-06 10:56 | PCM.DC.SUM ---
Providers Date of Admission: 04/04/22 Primary Care Physician: Dr. Cherelle Cutler, Consultations 04/04/22 07:50 Consult: Gastroenterology Routine Consulting Provider: [facility] Reason for Consult: cecal thickening, abd pain, concerning for neoplasm EMERGENT Consult: No MD Notified: Yes Date Notified: 04/04/22 Time Notified: 08:41 Method of Notification: Text Reason For Visit: PNA, ABDOMINAL MASS Diagnosis Discharge Diagnosis (1) Pneumonia: Status: Acute Code(s): J18.9 - Pneumonia, unspecified organism (2) Abdominal mass: Status: Acute Code(s): R19.00 - Intra-abdominal and pelvic swelling, mass and lump, unspecified site (3) COLD (chronic obstructive lung disease): Status: Chronic Code(s): J44.9 - Chronic obstructive pulmonary disease, unspecified Medications at Discharge Home Medications aspirin 81 mg chewable tablet 81 mg PO DAILY@0800 02/03/14 budesonide-formoterol HFA 160 mcg-4.5 mcg/actuation aerosol inhaler (Symbicort) 2 puff PO BID 02/03/14 ipratropium 0.5 mg-albuterol 3 mg (2.5 mg base)/3 mL nebulization soln 3 ml inhalation Q4H.RT 02/03/14 pravastatin 20 mg tablet 10 mg PO QHS 02/03/14 albuterol sulfate 90 mcg/actuation aerosol inhaler 2 puff inhalation Q4H PRN PRN Sob &/Or Wheezing 08/24/18 apixaban 5 mg tablet 5 mg PO BID 08/24/18 lisinopril 20 mg tablet 20 mg PO DAILY bp 08/24/18 metoprolol tartrate 50 mg tablet 50 mg PO BID 08/24/18 levofloxacin 250 mg tablet 250 mg PO DAILY@0600 7 days #7 tabs 04/06/22 metronidazole 500 mg tablet 500 mg PO BID 7 days #14 tabs 04/06/22 prednisone 20 mg tablet 40 mg PO DAILY 30 days #60 tabs 04/06/22 Hospital Course Operations None Procedures Colonoscopy Summary of Care Provided Minutes Spent on Discharge: 42 Hospital Course: Per HPI: Mr. Oliva is a 72-year-old male with history of COPD, hypertension who presented to [facility] 02/01 with right lower quadrant abdominal pain.? Initially started on Thursday and then got better but for roughly the past 1 day it is returned so presented to the ED.? He was noted to be mildly tachycardic and also O2 sats low 90s on room air.? CT abdomen showed left lower lobe pneumonia as well as irregular wall thickening in the cecum which may represent a neoplastic process, no bowel obstruction.? Pain significantly improved with morphine.? Given his shortness of breath, tachycardia, possible pneumonia and O2 sat in low 90s as well as this abdominal pain and mass hospitalist consulted for admission.? Patient seen and evaluated in the ED.? He reports that his right lower quadrant pain did show up on Thursday and never really went away but had improved significantly until Thursday night when it worsened again.? He has had poor p.o. intake since Thursday and has not been taking his medications due to not feeling well.? Last had a solid BM on Thursday and then has had some diarrhea intermittently.? Does endorse shortness of breath worsening over the past month or so with sporadic cough primarily with exertion.? Has been feeling nauseous in the ED but reports that has been from the pain medication and he was not feeling nauseated before that.? No fevers but has felt intermittent chills, denies weight loss.? No chest pain endorsed. Hospital Course: 1. Community-acquired pneumonia/COPD?72-year-old male presented to the hospital with right lower quadrant abdominal pain as well as some hypoxia. He was started on 2 L nasal cannula was not felt to be in the COPD exacerbation however imaging demonstrated the possibility of a mild pneumonia and was started on Rocephin and doxycycline for coverage. Because of this abdominal mass had a colonoscopy and GI issues antibiotics to Levaquin and Flagyl. He is still requiring about 2 L nasal cannula at rest and with ambulation and would recommend continue with his inhalers. He will be discharged on 1 month of p.o. prednisone at 40 mg daily. I did discuss with him the plan for discharge today he expressed understanding of the risk benefits of going home and is okay with going home though he is concerned about being able to find a ride. He does feel much better today than he did on admission. 2. Likely Crohn's disease?gastroenterology did colonoscopy to evaluate this mass and he felt that it was mostly benign and that the scarring and the appearance of the ileocecal valve was consistent with Crohn's disease. Antibiotics were changed to Levaquin and Flagyl and he was started on Solu-Medrol which will be transitioned to p.o. prednisone on discharge. Hepatitis panels and tuberculosis testing are pending prior to initiating on a biologic agent potentially for his Crohn's disease. 3. Hypertension, hyperlipidemia, history of DVT, CKD 3a are all chronic medical conditions which complicate his care. His home medications were continued where appropriate Physical Exam Narrative General: Alert, Oriented, Cooperative, No apparent distress HEENT: Atraumatic, PERRLA, EOMI, Normocephalic Oral: Moist Mucosa Neck: Supple, No JVD Lungs: Diminished, Normal air movement, No rhonchi, No wheeze, No rales Cardiovascular: Regular rate, Regular Rhythm, Normal S1, Normal S2, No murmurs Abdomen: Soft, Mild TTP RLQ, Non-Distended, No Hepato-splenomegaly Extremities: No edema, Capillary Refill Less than 3 Seconds Skin: No rashes, No breakdown Musculoskeletal: No Tenderness to Palpation of Joints or Extremities Neurological: Cranial nerves II-XII grossly intact, Motor Exam 5/5 strength throughout, Sensory exam intact to light touch and pain Psych/Mental Status: Normal Affect, Appropriate Medical Records Data Medical Nutrition Assessment Dietitian: Malnutrition Criteria Met Start: 04/04/22 14:42 Freq: Status: Active Protocol: Document 04/04/22 14:43 AG (Rec: 04/04/22 14:43 [id number]) Nutrition Malnutrition Evidence of Malnutrition Exists Yes Malnutrition (severe): Acute Illness/Injury Evidenced By Suboptimal Energy Intake ( Severe),Weight Loss (Severe) Clinical Problem Acute Disease or Injury Related Malnutrition Etiology severe, acute malnutrition related to inadequate energy intake d/t GI dysfunction Signs/Symptoms as evidenced by unintentional 20.8#/13% wt loss x 1 month; estimated PO intake meeting < 50% of estimated energy needs >1 month Status Active Problem Recommendation Dietitian Recommendations/Changes recommend advance diet as tolerated to regular; ensure w / medpass when PO diet is advanced given signs/symptoms of malnutrition Weight / BMI Weight Weight: 144 lb 3.199 oz Body Mass Index (BMI) 21.2 ABG / Lab / Microbiology Data Result Diagrams: 04/05/22 05:46 04/05/22 05:15 Laboratory: Laboratory Results - last 24 hr 04/05/22 10:40: ESR 49 H 04/05/22 10:40: C-React Prot Ext Range 134.00 H Microbiology: Microbiology 04/04/22 04:15 Blood Culture (Wb) - Arm Right Blood Culture - Preliminary No growth in 48 hours. 04/04/22 05:25 Blood Culture (Wb) - Left Hand Blood Culture - Preliminary No growth in 48 hours. 04/04/22 09:47 Mucosa - Nasopharyngeal Respiratory Panel (PCR) - Final 04/04/22 10:00 Nasal Secretion SARS-CoV-2 & FLU Antigen (Rapid) - Final 04/04/22 04:28 Urine, Clean Catch Streptococcus pneumoniae Antigen (M - Final 04/04/22 04:28 Urine, Clean Catch Legionella Antigen - Final D/C Instructions Discharge Diet: Low fat / Low cholesterol Call your doctor if you observe: Fever of 101 or Higher, Shortness of breath, Dizziness, Fainting spells, Swelling in the ankles, Chest pain and Increased palpitations (irregular heartbeat) Meaningful Use Info Meaningful Use Diagnoses (Choose all that apply): None applicable Discharge Plan Admission Admit Date/Time: 04/04/22 06:22 Attending Provider: Berlni Michael Primary Care Provider: Cherelle Cutler Consulting Providers: Emilee Car Instructions Additional Instructions / Restrictions: Follow-up with your PCP in 3 to 5 days to obtain outpatient lab work Discharge Orders/Prescriptions Prescriptions: New metronidazole 500 mg Tablet 500 mg PO BID 7 Days Qty: 14 0RF levofloxacin 250 mg Tablet 250 mg PO DAILY@0600 7 Days Qty: 7 0RF prednisone 20 mg tablet 40 mg PO DAILY 30 Days Qty: 60 0RF Continued aspirin 81 MG tablet,chewable 81 mg PO DAILY@0800 Label Comments: [facility] pravastatin 20 MG tablet 10 mg PO QHS Label Comments: CHOLESTEROL LOWERING budesonide-formoterol [Symbicort] 1 INHALER inhaler 2 puff PO BID Label Comments: COPD ipratropium-albuterol 3 ML solution for nebulization 3 ml inhalation Q4H.RT Label Comments: COPD metoprolol tartrate 50 MG tablet 50 mg PO BID apixaban 5 MG tablet 5 mg PO BID lisinopril 20 MG tablet 20 mg PO DAILY albuterol sulfate 18 GM HFA aerosol inhaler 2 puff inhalation Q4H PRN PRN (Reason: Sob &/Or Wheezing) Referrals / Follow Up: Cherelle Cutler DO [Primary Care Provider] - Within 1 Week FriendRamesh DO [Med Staff - Active Staff] - Within 1 Month Disposition Disposition (needs filled in before D/C Order can be placed): Home, Self Care Charges/Coding Visit Charges Inpatient E&M: 41683 Disch Hosp >30min
--- NOTE | 2022-04-06 11:43 | NURSING ---
Called [employer] and notified them of new order for patient. [employer] took all patient information and will be in contact with patient and their family. Tammy ALLEN aware
[2022-04-06] MEDS: Ondansetron 4 MG/2 ML Vial IV (11:51)
[2022-04-09 10:08] LABS: Cytoplasmic Ab (C-ANCA) <1:20 titer (Neg:<1:20); HEPATITIS B SURFACE AG Negative (Negative); Hep C Antibodies Non Reactive (Non Reactive); Hepatitis A IgM Antibody Negative (Negative); Hepatitis B Core AB IgM Negative (Negative); QNTFERON TB Mitogen Value > 10.00 IU/mL (.); QNTFERON TB Nil Value 0.05 IU/mL (.); QNTFERON TB1+ Ag Value 0.05 IU/mL (.); QNTFERON TB2+ Ag Value 0.05 IU/mL (.)
[2022-04-09 20:33] LABS: Perinuclear Ab (P-ANCA) <1:20 titer (Neg:<1:20); QNTIFERON TB Positive Criteria Negative (Negative)
== END 2022-04-06 12:55 | disposition home or self-care (01) | DRG 194 ==
LOC: ED 07:16 → PCU 09:08
PROVIDERS: Internal Medicine Gastroenterology; Admitting Provider Internal Medicine; Emergency Provider Emergency Medicine; PCP Family Medicine; Visit Provider Family Medicine
PROC: 0DJD8ZZ Inspection of Lower Intestinal Tract, Via Natural or Artificial Opening Endoscopic (ICD-10-PCS; CPT 45378; principal; 2022-04-05 09:00)
DX: J18.9 Pneumonia, unspecified organism (principal); J44.0 Chronic obstructive pulmonary disease with (acute) lower respiratory infection; N17.9 Acute kidney failure, unspecified; K50.90 Crohn's disease, unspecified, without complications; F17.210 Nicotine dependence, cigarettes, uncomplicated; D53.9 Nutritional anemia, unspecified; D50.0 Iron deficiency anemia secondary to blood loss (chronic); N18.31 Chronic kidney disease, stage 3a; E78.5 Hyperlipidemia, unspecified; I12.9 Hypertensive chronic kidney disease with stage 1 through stage 4 chronic kidney disease, or unspecified chronic kidney disease; R19.00 Intra-abdominal and pelvic swelling, mass and lump, unspecified site; Z79.01 Long term (current) use of anticoagulants; R10.31 Right lower quadrant pain; R09.02 Hypoxemia; Z79.51 Long term (current) use of inhaled steroids; Z79.82 Long term (current) use of aspirin; Z79.52 Long term (current) use of systemic steroids; Z86.718 Personal history of other venous thrombosis and embolism
CPT/HCPCS: 36415; 71045; 74177; 80048; 80053; 80074; 80076; 81001; 83605; 83690; 85025; 85652; 86140; 86256; 86480; 87040; 87428; 87449; 87633; 88305; 93005; 94640; 94668; 97162; 97166; 97802; 99252; 99285; 99406; J7030; J7040; Q9967; A4216; G0463; J0696; J2405

== ENCOUNTER 2022-10-04 12:04 | Inpatient (IN) | payer MEDICARE, MEDICAID, SELFPAY ==
[2022-10-04] VITALS (13 sets, daily range): BP systolic 105–170; BP diastolic 60–102; PULSE 86–105; RESP 4–28; TEMP 36.4–36.8; O2SAT 95–100; BMI 22.5
--- NOTE | 2022-10-04 12:36 | EKG12_ITS ---
Test Reason : CP Blood Pressure : / mmHG Vent. Rate : 100 BPM Atrial Rate : 100 BPM P-R Int : 148 ms QRS Dur : 080 ms QT Int : 328 ms P-R-T Axes : 084 061 074 degrees QTc Int : 423 ms Sinus rhythm with Premature atrial complexes with Aberrant conduction Low voltage QRS Nonspecific ST abnormality Abnormal ECG Confirmed by HIRA CHONG ([id number]), news copy editor ANDREW VALDEZ ([id number]) on 10/07/2022 8:20:52 AM Referred By: PL/TA Confirmed By:HIRA CHONG
--- NOTE | 2022-10-04 12:37 | ED.VIS.DYS ---
HPI History of Present Illness Chief Complaint: Shortness of Breath [facility] Medical History (Updated 10/04/22 @ 16:[address] Edmundo Castro, DO) Asthma COLD (chronic obstructive lung disease) COPD (chronic obstructive pulmonary disease) HTN (hypertension) Hx of blood clots Tobacco dependence syndrome Home Medications aspirin 81 mg chewable tablet 81 mg PO DAILY@0800 02/03/14 [History Last Taken 10/03/22] budesonide-formoterol HFA 160 mcg-4.5 mcg/actuation aerosol inhaler (Symbicort) 2 puff PO BID 02/03/14 [History Last Taken 10/03/22] albuterol sulfate 90 mcg/actuation aerosol inhaler 2 puff inhalation Q4H PRN PRN Sob &/Or Wheezing 08/24/18 [History Last Taken Unknown] apixaban 5 mg tablet 5 mg PO BID 08/24/18 [History Last Taken 10/03/22] lisinopril 20 mg tablet 20 mg PO DAILY bp 08/24/18 [History Last Taken 10/03/22] metoprolol tartrate 50 mg tablet 50 mg PO BID 08/24/18 [History Last Taken 10/03/22] ipratropium 0.5 mg-albuterol 3 mg (2.5 mg base)/3 mL nebulization soln 3 ml inhalation Q6H PRN shortness of breath or wheezing #180 mL 08/27/22 [Rx Last Taken 10/04/22] prednisone 10 mg tablet 10 mg PO DAILY #30 tabs 09/08/22 [Rx Last Taken 10/03/22] buspirone 10 mg tablet 10 mg PO BID 10/04/22 [History Last Taken 10/03/22] pravastatin 10 mg tablet 10 mg PO QHS 10/04/22 [History Last Taken 10/03/22] Allergy/AdvReac Type Severity Reaction Status Date / Time azithromycin [From Zithromax] Allergy Swelling Verified 10/04/22 12:06 Penicillins Allergy Hives Verified 10/04/22 12:06 shellfish derived Allergy Hives Verified 10/04/22 12:06 venom-honey bee Allergy Hives Verified 10/04/22 12:06 [bee venom (honey bee)] chocolate flavor AdvReac Diarrhea Verified 10/04/22 12:06 Surgical History H/O neck surgery Heart valve replaced History of appendectomy History of hand surgery Social History Smoking Status: Former smoker quit date: 04/21/22 how long ago did patient quit smoking: quit in april when in the hospital alcohol intake: current alcohol intake frequency: a few times a week Alcohol type: beer seatbelt use: always EXAM Physical Exam Const Vital Signs: 10/04/22 12:06 10/04/22 12:11 10/04/22 12:14 Temperature 98.0 F Temperature Source Oral Pulse Rate 105 H 100 Respiratory Rate 28 H 24 H Respiratory Effort Short of Breath Accessory Muscle Use Pursed Lip Retracting Respiratory Depth Shallow Respiratory Pattern Irregular Blood Pressure 170/102 H Blood Pressure Mean 124 Pulse Ox 100 98 Oxygen Delivery Method Nasal Cannula Nasal Cannula Nasal Cannula Oxygen Flow Rate (L/min) 6 3 3 Fraction of Inspired Oxygen (FIO2) 10/04/22 12:27 10/04/22 12:47 Temperature Temperature Source Pulse Rate 92 96 Respiratory Rate 15 18 Respiratory Effort Respiratory Depth Respiratory Pattern Normal Blood Pressure Blood Pressure Mean Pulse Ox 99 Oxygen Delivery Method Oxygen Flow Rate (L/min) Fraction of Inspired Oxygen (FIO2) 40 MDM MDM MDM Narrative Medical decision making narrative: HISTORY OF PRESENT ILLNESS: 72-year-old male here with shortness of breath. Noted this occurred at 8:30 AM this morning. States he is been coughing up white phlegm. Notes history of COPD. Also notes chest pain. States breathing treatment by EMS prior to arrival only mildly improved his symptoms. Denies any fever. Denies sick contacts. The patient denies recent surgery in the last 4 weeks or immobilization in the last 3 days, denies previous diagnosis of DVT or PE, hemoptysis, unilateral leg swelling or malignancy with treatment the last 6 months. No estrogen use noted. Denies bleeding diathesis. Patient denies sudden onset of pain, no tearing sensation, no migratory symptoms, no new numbness, weakness or loss of sensation. Patient denies family history or personal history of Connective tissue disorders (Marfan's Syndrome, Radhika Danlos etc) REVIEW OF SYSTEMS: Pertinent positives: Shortness of breath, cough, chest pain Pertinent negatives: Syncope, focal weakness PHYSICAL EXAM: Nursing triage notes reviewed, Vital signs reviewed Constitutional: please see mdm HENT: MMM Eyes: Pupils equal round and reactive to light, Extraocular muscles intact Neck: No stridor, no JVD, full neck ROM Lungs: Increased work of breathing, tachypnea noted, conversational dyspnea, accessory muscle use, belly breathing, respiratory distress noted Heart: Regular rate and rhythm, No murmurs, No rubs and No gallops, 2+ distal pulses (radial, femoral, posterior tibial) in all extremities Abdomen: Soft, there is no tenderness, rigidity, rebound or guarding, no obvious peritoneal signs, no palpable pulsatile abdominal masses, no auscultated abdominal bruit : No CVAT Extremities: No edema Neuro: No focal neurological deficits, cranial nerves II through XII intact, 5/5 strength in all extremities. Intact sensation to light touch in all extremities, 2+ reflexes bilateral patella tendons. Normal gait. No ataxia. Skin: No rash or lesions noted MEDICAL DECISION MAKING: Chief Complaint: Shortness of breath External records reviewed: Last ED visit in March 2022 Factors affecting care: COPD, asthma, hypertension, hyperlipidemia Social determinants of health: Positive smoking history History obtained from others: EMS Consults: Internal medicine ALL IMAGES (IF OBTAINED) HAVE BEEN PERSONALLY REVIEWED AND INTERPRETED BY MYSELF. [facility] Narrative: Patient was initially hypertensive, tachycardic and tachypneic he had increased work of breathing bilateral wheezing, prolonged expiratory phase he had conversational dyspnea he has severe respiratory distress requiring rescue BiPAP. I considered the following differential diagnosis: COPD exacerbation, pneumonia, COVID, flu, ACS, arrhythmia, anemia, PE, dissection There is no clinical evidence to suggest aortic dissection as patient did not have ripping or tearing chest pain, asymmetric pulses and no history concerning for aortic abnormality such as connective tissue disorders. He had no PE risk factors. His lung exam was most consistent with a COPD exacerbation. He was placed on rescue BiPAP and given breathing treatments. EKG, troponin ordered to rule out ACS, COVID flu swab taken, CBC ordered to rule out anemia. Labs and images were remarkable for leukocytosis suggestive of systemic inflammation, there is no significant anemia, no significant kidney dysfunction, anion gap, has no elevation in troponin or signs of heart failure. Chest x-ray shows no evidence of anemia. Patient is likely suffering from a COPD exacerbation. He was weaned off BiPAP onto nasal cannula is appropriate for floor admission. He was given 125 Solu-Medrol, continued on frequent DuoNeb breathing treatments. The patient and/or family, caregivers express understanding. The patient and/or family, caregivers agrees with the plan. Shared decision making: I will have a discussion with the patient and or visitors regarding risk/benefits of further testing or admission. They will be made aware of of the risk/benefits inherent in this decision they will be given the opportunity to voice understanding. Total critical care time today provided was at least 35 minutes. This excludes separately billable procedures. Critical care time (if documented) is secondary to the patient having high probability of clinically significant/life threatening deterioration in the patient's condition which required my urgent intervention. Lab Data Attestation: I reviewed the patient's lab results. Lab results narrative: CBC with leukocytosis suggestive of systemic inflammation, no anemia, no thrombocytopenia BMP without evidence of significant electrolyte abnormalities, no anion gap, noted CKD Troponin is negative, no evidence of myocardial ischemia BMP without evidence of significant electrolyte abnormalities, no anion gap, no acute kidney injury. Labs: Laboratory Results - last 24 hr 10/04/22 12:15 WBC 17.5 H RBC 4.65 Hgb 14.9 Hct 46.5 MCV 100.0 H MCH 32.0 MCHC 32.0 RDW Std Deviation 55.7 H RDW Coeff of Meek 15.0 H Plt Count 310 MPV 9.6 Immature Gran % (Auto) 0.600 Neut % (Auto) 72.9 H Lymph % (Auto) 17.7 L [place] % (Auto) 6.7 Eos % (Auto) 1.8 Baso % (Auto) 0.3 Absolute Neuts (auto) 12.8 H Absolute Lymphs (auto) 3.10 Nucleated RBC % 0 Sodium 141 Potassium 4.7 Chloride 106 Carbon Dioxide 30.0 Anion Gap 5 BUN 29 H Creatinine 1.70 H Estim Creat Clear Calc 39.58 Est GFR (MDRD) Af Amer 51 L Est GFR (MDRD) Non-Af 43 L BUN/Creatinine Ratio 17.1 Glucose 100 Calcium 9.3 Troponin I High Sens 8 B-Natriuretic Peptide 59.7 ABG Data ABG results: ABG 10/04/22 12:32 Specimen Type JENNY VBG pH 7.33 VBG pO2 30 VBG HCO3 28 H VBG Total CO2 30 VBG O2 Sat (Calc) 52 VBG Base Excess 2 POC Mix VBG pCO2 Pt Tmp 53.1 H O2 Delivery Device Cannula Liter Flow 6.0 Radiography Chest X-Ray - ED: Read by ED Physician Diagnostic Testing: Clinical Impression(s) from Imaging Studies Chest X-Ray 10/04/22 12:47 IMPRESSION: No acute pulmonary process, no interval change Electronically Signed: Marcos Roberts MD at 13:27 EDT Reading Location ID and State: [facility] / [place] , Service support , I have personally reviewed the patient's chest x-ray. Chest x-ray is unremarkable for pulmonary edema, pneumothorax, pneumonia or focal cardiopulmonary abnormality. Discharge Plan Triage Chief Complaint: Shortness of Breath ED Provider: Edmundo Castro Dx/Rx/DC Orders Clinical Impression: COPD with exacerbation, Tachypnea, Tachycardia Primary Care Provider: Cherelle Cutler Disposition Disposition: Acute Care Hospital [facility]
[2022-10-04 12:38] LABS: Blood Gas Specimen Type VEN; O2 Delivery Device Cannula; VBG BASE EXCESS 2 mmol/L (-1.0-3.5); VBG Bicarbonate 28 mmol/L (22-26); VBG PO2 30 mmHg (25-40); VBG SO2 52 % (50-70); VBG TCO2 30 mmol/L (23-33); VBG pCO2 53.1 mmHg (41-51); VBG pH 7.33 (7.32-7.42)
[2022-10-04] MEDS: Ipratropium/Albuterol Sulfate 3 ML AMPUL.NEB INHALATION ×4 (12:43→23:01)
[2022-10-04 12:46] LABS: Absolute Neutrophil Count 12.8 X10^3/uL (2.0-7.7); Basophil# 0.06 X10^3/uL; Basophil% 0.3 % (0-1); Eosinophil# 0.31 X10^3/uL; Eosinophils% 1.8 % (0-5); Hematocrit 46.5 % (40-54); Hemoglobin 14.9 g/dL (13.0-16.5); Lymphocyte % 17.7 % (19-41); Mean Platelet Vol. 9.6 fl (6.2-12.0); Monocyte# 1.17 X10^3/uL; Monocyte% 6.7 % (0-10); NRBC Flagged by Analyzer 0 % (0-5); Neutrophil # 12.77 X10^3/uL (2.7-7.7); Neutrophil % 72.9 % (47-70); Platelet Count 310 K/mm3 (150-450); RBC Distribution Width SD 55.7 fl (35.1-43.9); Red Blood Count 4.65 M/mm3 (4.6-6.2); White Blood Count 17.5 K/mm3 (4.4-11.0)
--- NOTE | 2022-10-04 12:47 | RAD_ITS ---
STUDY: X-RAY CHEST REASON FOR EXAM: Male, 72 years old. SOB TECHNIQUE: Single AP portable view of the chest. COMPARISON: 04/04/2022 FINDINGS: EKG leads overlie the chest The lungs are clear and expanded. There is no demonstrated pleural abnormality. Normal size heart. Normal mediastinum and bart. Normal visualized pulmonary arteries. Normal visualized aortic arch and descending thoracic aorta. Normal visualized thoracic spine. Stable appearance of a replaced glenohumeral joints There is no demonstrated abnormality of the visualized soft tissue structures of the upper abdomen. RAD/Chest 1 View (Portable) IMPRESSION: No acute pulmonary process, no interval change Electronically Signed: Marcos Roberts MD at 13:27 EDT ,
[2022-10-04 13:02] LABS: Anion Gap 5 (5-15); BUN 29 mg/dL (7-18); BUN/Creat Ratio 17.1 RATIO (10-20); Calcium,Total 9.3 mg/dL (8.5-10.1); Chloride 106 mmol/L (98-107); EST Glomerular Filtration Rate 43 mL/min (>60); Est Glom Filt Rate - Afr Amer 51 mL/min (>60); Estimated Creatinine Clearance 39.58 ml/min; Glucose 100 mg/dL (74-106); Potassium 4.7 mmol/L (3.5-5.1); Sodium Level 141 mmol/L (136-145); Troponin-I HS 8 pg/mL (3.0-78.0)
[2022-10-04 13:23] LABS: BNP,B-Type NATRIURETIC PEPTIDE 59.7 pg/mL (0-100)
--- NOTE | 2022-10-04 14:03 | CPS ---
Per MD, took pt off bipap and placed on 3L NC at this time. Will continue to check on pt
[2022-10-04] MEDS: Morphine 2 MG/ML Syringe IV (14:06)
[2022-10-04] MEDS: Naproxen 250 MG Tablet PO (15:00)
--- NOTE | 2022-10-04 15:00 | HP.PCM.HOS_ITS ---
HPI - General General Date of Admission: 10/04/22 Date of Service: 10/04/22 Chief Complaint: Acute exacerbation of COPD HPI Narrative Marcos Oliva is a 72-year-old male with history of COPD on home 2 L O2, history of DVT/PE on Eliquis, Crohn's disease, hypertension and hyperlipidemia who presented to [facility] ED on 10/04/2022 with increased work of breathing. Patient seen at bedside. He was laying comfortably in bed but did appear very fatigued. States that his breathing feels much better after the breathing treatments and being on BiPAP for short time, but he generally feels wiped out. States this all started this morning for him. He lives at home with his and typically is able to do all activities for himself. States that he just did some things for his car a few days ago. He denies any fevers or chills. He has been coughing up whitish sputum today but states that this is baseline for him. Has had no discolored sputum production. He denies any body aches. Denies any chest pain. No other acute concerns. Patient notably was hospitalized in May 2022 at outside hospital for pneumonia and has required home 2 L of oxygen since that time. Follows with Dr. Kenny in the office, last office visit on 08/27/2022. Home medications are Symbicort and DuoNebs plus Ventolin inhalers as needed. Patient noted at that time that he had been using the DuoNebs and Ventolin inhalers each about 2-[address] Kenny ordered complete PFTs, walking oximetry and an echo at that time; does not appear that these have been done yet. Dr. Kenny suspected that patient had multifactorial etiology for his hypoxemia. Notably does have a very significant smoking history, quit about 10 years ago. Labs on admission were notable for a white count of 17.5 (neutrophil predominant), or otherwise fairly benign. VBG in the ED showed a pH of 7.33, CO2 28. Chest x-ray showed hyperinflated lungs with clear lung wu, unchanged in appearance from last chest x-ray from 03/2022. EKG showed normal sinus rhythm with frequent PACs, mildly low voltage. [facility] Medical History (Updated 10/04/22 @ 16:[address] Edmundo Gloria, DO) Asthma COLD (chronic obstructive lung disease) COPD (chronic obstructive pulmonary disease) HTN (hypertension) Hx of blood clots Tobacco dependence syndrome Home Medications aspirin 81 mg chewable tablet 81 mg PO DAILY@0800 02/03/14 [History Last Taken 10/03/22] budesonide-formoterol HFA 160 mcg-4.5 mcg/actuation aerosol inhaler (Symbicort) 2 puff PO BID 02/03/14 [History Last Taken 10/03/22] albuterol sulfate 90 mcg/actuation aerosol inhaler 2 puff inhalation Q4H PRN PRN Sob &/Or Wheezing 08/24/18 [History Last Taken Unknown] apixaban 5 mg tablet 5 mg PO BID 08/24/18 [History Last Taken 10/03/22] lisinopril 20 mg tablet 20 mg PO DAILY bp 08/24/18 [History Last Taken 10/03/22] metoprolol tartrate 50 mg tablet 50 mg PO BID 08/24/18 [History Last Taken 09/16 10/08] ipratropium 0.5 mg-albuterol 3 mg (2.5 mg base)/3 mL nebulization soln 3 ml inhalation Q6H PRN shortness of breath or wheezing #180 mL 08/27/22 [Rx Last Taken 10/04/22] prednisone 10 mg tablet 10 mg PO DAILY #30 tabs 09/08/22 [Rx Last Taken 10/03/22] buspirone 10 mg tablet 10 mg PO BID 10/04/22 [History Last Taken 10/03/22] pravastatin 10 mg tablet 10 mg PO QHS 10/04/22 [History Last Taken 10/03/22] Allergy/AdvReac Type Severity Reaction Status Date / Time azithromycin [From Zithromax] Allergy Swelling Verified 10/04/22 12:06 Penicillins Allergy Hives Verified 10/04/22 12:06 shellfish derived Allergy Hives Verified 10/04/22 12:06 venom-honey bee Allergy Hives Verified 10/04/22 12:06 [bee venom (honey bee)] chocolate flavor AdvReac Diarrhea Verified 10/04/22 12:06 Surgical History H/O neck surgery Heart valve replaced History of appendectomy History of hand surgery Social History Smoking Status: Former smoker quit date: 04/21/22 how long ago did patient quit smoking: quit in april when in the hospital alcohol intake: current alcohol intake frequency: a few times a week Alcohol type: beer seatbelt use: always ROS Constitutional Constitutional: Reports fatigue; Denies chills, fever(s) or weakness Eyes Eyes: Denies change in vision Cardiovascular Cardiovascular: Denies chest pain, edema or lightheadedness Respiratory/Chest Respiratory/Chest: Reports productive cough; Denies excessive phlegm production or shortness of breath at rest Gastrointestinal Gastrointestinal: Denies abdominal pain Genitourinary Genitourinary: Denies dysuria Vital Signs Vital Signs Vital Signs: 10/04/22 12:06 10/04/22 12:11 10/04/22 12:14 Temperature 98.0 F Temperature Source Oral Pulse Rate 105 H 100 Respiratory Rate 28 H 24 H Respiratory Effort Short of Breath Accessory Muscle Use Pursed Lip Retracting Respiratory Depth Shallow Respiratory Pattern Irregular Blood Pressure 170/102 H Blood Pressure Mean 124 Pulse Ox 100 98 Oxygen Delivery Method Nasal Cannula Nasal Cannula Nasal Cannula Oxygen Flow Rate (L/min) 6 3 3 Fraction of Inspired Oxygen (FIO2) 10/04/22 12:27 10/04/22 12:47 Temperature Temperature Source Pulse Rate 92 96 Respiratory Rate 15 18 Respiratory Effort Respiratory Depth Respiratory Pattern Normal Blood Pressure Blood Pressure Mean Pulse Ox 99 Oxygen Delivery Method Oxygen Flow Rate (L/min) Fraction of Inspired Oxygen (FIO2) 40 Weight Weight: 69.2 kg Body Mass Index (BMI) 22.5 Physical Exam Const alert and oriented x3 Constitutional Narrative: Patient laying comfortably in bed but appears very fatigued. Answering questions appropriately but speech is somewhat slowed. No increased work of breathing noted on 3 L nasal cannula. General Appearance: cooperative HEENT normocephalic, head/scalp atraumatic, hearing grossly normal bilaterally, nasal mucous membranes and turbinates normal and moist oral mucous membranes Eyes PERRL, EOMs intact bilaterally and conjunctivae normal Neck full ROM, no lymphadenopathy and supple Lymph Lymphatic: no lymphadenopathy noted Chest inspection of chest normal Resp Resp Narrative: Satting in the mid 90s on 3 L. Breath sounds diminished bilaterally with mild wheezing noted in upper airways. No rales or rhonchi. Cardio regular rate, regular rhythm, no murmurs and peripheral pulses 2+ throughout GI normal to inspection, nondistended, normoactive bowel sounds, soft to palpation, non-tender and non-distended Back/Spine normal ROM Extremity normal to inspection, full ROM and no pedal edema Skin no rashes or lesions noted Psych mental status grossly normal Results Lab / Micro Data 10/04/22 12:15 10/04/22 12:15 Labs: Laboratory Results - last 24 hr 10/04/22 12:15: WBC 17.5 H, RBC 4.65, Hgb 14.9, Hct 46.5, MCV 100.0 H, MCH 32.0, MCHC 32.0, RDW Std Deviation 55.7 H, RDW Coeff of Meek 15.0 H, Plt Count 310, MPV 9.6, Immature Gran % (Auto) 0.600, Neut % (Auto) 72.9 H, Lymph % (Auto) 17.7 L, [place] % (Auto) 6.7, Eos % (Auto) 1.8, Baso % (Auto) 0.3, Absolute Neuts (auto) 12.8 H, Absolute Lymphs (auto) 3.10, Nucleated RBC % 0, Sodium 141, Potassium 4.7, Chloride 106, Carbon Dioxide 30.0, Anion Gap 5, BUN 29 H, Creatinine 1.70 H , Estim Creat Clear Calc 39.58, Est GFR (MDRD) Af Amer 51 L, Est GFR (MDRD) Non- Af 43 L, BUN/Creatinine Ratio 17.1, Glucose 100, Calcium 9.3, Troponin I High Sens 8, B-Natriuretic Peptide 59.7 Micro: Microbiology 10/04/22 12:45 Nasal Secretion SARS-CoV-2 Antigen (Rapid) - Final ABG Data ABG results: ABG 10/04/22 12:32 Specimen Type JENNY VBG pH 7.33 VBG pO2 30 VBG HCO3 28 H VBG Total CO2 30 VBG O2 Sat (Calc) 52 VBG Base Excess 2 POC Mix VBG pCO2 Pt Tmp 53.1 H O2 Delivery Device Cannula Liter Flow 6.0 Radiology Impression Chest X-Ray 10/04/22 12:47 IMPRESSION: No acute pulmonary process, no interval change Electronically Signed: Marcos Roberts MD at 13:27 EDT , Assessment & Plan Assessment/Plan (1) COPD (chronic obstructive pulmonary disease): PLAN: Plan Patient is a 72-year-old male with history of COPD on home 2 L O2, history of DVT/PE on Eliquis, Crohn's disease, hypertension and hyperlipidemia who presented to [facility] ED on 10/04/2022 with increased work of breathing. 1. Acute exacerbation of COPD Unclear etiology of acute exacerbation. May be secondary to viral infection. Lower concern for bacterial infection. Labs on admit showed white count of 17, were otherwise benign. COVID-negative. Chest x-ray showed hyperinflated lungs with clear lung wu, similar in appearance to last chest x-ray from March. Patient did require BiPAP in the ED for a short time, improved with this and with a breathing treatment. Satting in the mid 90s on 3 L nasal cannula on my interview. -We will plan to treat as standard COPD exacerbation with 5-day course of prednisone and antibiotics. Duo nebs every 4 hours scheduled for now, can likel y de-escalate this to as needed tomorrow. Continue home Symbicort. Respiratory PCR and sputum cultures pending. 2. Leukocytosis ?Likely secondary to COPD exacerbation as above, but likely also chronically elevated due to home prednisone 10 mg daily. Treatment for COPD exacerbation as above. 3. CKD 3a ?Creatinine 1.70 on admission. Appears baseline is around 1.5-1.7. No need to monitor further BMPs. 4. Crohn's disease Appears to be recent diagnosis. Follows with Dr. Conrad with gastroenterology, last visit in the office on 08/28/2022. He was hospitalized in March 2022 with right lower quadrant abdominal pain. Colonoscopy done at that time showed scarring of the ileocecal valve most consistent with Crohn's disease. Was sent home at that time on prednisone with plan for slow taper. Is currently on prednisone 10 mg/day. Dr. Conrad stated that he would like to switch to bud esonide at some point, but not right now because he is doing well on the prednisone. ? We will complete 5-day course of prednisone 40 mg daily, and then patient can likely return to home 10 mg daily. 5. History of PE/DVT ? Continue home Eliquis. 6. Hypertension ? Continue home lisinopril and Lopressor. 7. Hyperlipidemia ? Continue home pravastatin. DVT prophylaxis: Eliquis CODE STATUS: Full code, verified Expected disposition: Home, 1 to 2 days Total clinical time spent by myself addressing the patient's medical issues, reviewing all the data, and collaborating with patient's care team: 55 minutes. Charges/Coding Visit Charges Inpatient E&M: 53049 Init Hosp L2
[2022-10-04] MEDS: MethylPREDNISolone 125 MG/2 ML Vial IV (15:02)
[2022-10-04] MEDS: Ceftriaxone 1 GM/50 ML BAG IV (17:30)
[2022-10-04] MEDS: busPIRone 5 MG Tablet 10 MG PO (21:46)
[2022-10-04] MEDS: APIXABAN 5 MG TABLET PO (21:46)
[2022-10-04] MEDS: Metoprolol Tartrate 50 MG Tablet PO (21:46)
[2022-10-04] MEDS: Pravastatin 20 MG Tablet 10 MG PO (21:50)
[2022-10-05] VITALS (15 sets, daily range): BP systolic 110–120; BP diastolic 60–73; PULSE 80–101; RESP 16–20; TEMP 36.6–37.1; O2SAT 94–98
[2022-10-05] MEDS: Ipratropium/Albuterol Sulfate 3 ML AMPUL.NEB INHALATION ×6 (03:10→23:52)
--- NOTE | 2022-10-05 08:30 | PCM.PN.HOSP ---
Reason for Visit Reason for Visit: Diagnoses Chronic obstructive pulmonary disease, unspecified (10/04/22) Subjective Subjective Feeling better. Normally, he is not on oxygen. Still with left chest pain. Objective Data Objective Data Vital Signs: Vital Signs Temp Pulse Resp BP Pulse Ox O2 Del Method O2 Flow Rate 37.1 C 89 16 110/73 98 Nasal Cannula 3 10/05/22 05:30 10/05/22 07:35 10/05/22 07:35 10/05/22 05:30 10/05/22 07:35 10/05/22 07:35 10/05/22 07:35 FiO2 40 10/04/22 12:27 Oxygen Flow Rate (L/min) 3 Oxygen Delivery Method Nasal Cannula Weight: 69.2 kg Body Mass Index (BMI) 22.5 Intake & Output: Intake and Output for Last 24 Hours 10/03/22 10/04/22 10/05/22 23:59 23:59 23:59 Intake Total 410 / 610 300 / 300 Output Total 1000 / 1000 Balance 410 / -40 -700 / -700 Lab / Micro Data 10/05/22 09:14 10/05/22 09:14 Labs: Laboratory Results - last 24 hr 10/04/22 12:15: WBC 17.5 H, RBC 4.65, Hgb 14.9, Hct 46.5, MCV 100.0 H, MCH 32.0, MCHC 32.0, RDW Std Deviation 55.7 H, RDW Coeff of Meek 15.0 H, Plt Count 310, MPV 9.6, Immature Gran % (Auto) 0.600, Neut % (Auto) 72.9 H, Lymph % (Auto) 17.7 L, [place] % (Auto) 6.7, Eos % (Auto) 1.8, Baso % (Auto) 0.3, Absolute Neuts (auto) 12.8 H, Absolute Lymphs (auto) 3.10, Nucleated RBC % 0, Sodium 141, Potassium 4.7, Chloride 106, Carbon Dioxide 30.0, Anion Gap 5, BUN 29 H, Creatinine 1.70 H, Estim Creat Clear Calc 39.58, Est GFR (MDRD) Af Amer 51 L, Est GFR (MDRD) Non-Af 43 L, BUN/Creatinine Ratio 17.1, Glucose 100, Calcium 9.3, Troponin I High Sens 8, B-Natriuretic Peptide 59.7 Micro: Microbiology 10/04/22 12:45 Nasal Secretion SARS-CoV-2 Antigen (Rapid) - Final ABG Data ABG results: ABG 10/04/22 12:32 Specimen Type JENNY VBG pH 7.33 VBG pO2 30 VBG HCO3 28 H VBG Total CO2 30 VBG O2 Sat (Calc) 52 VBG Base Excess 2 POC Mix VBG pCO2 Pt Tmp 53.1 H O2 Delivery Device Cannula Liter Flow 6.0 Radiography Diagnostic Testing: Radiology Impression Chest X-Ray 10/04/22 12:47 IMPRESSION: No acute pulmonary process, no interval change Electronically Signed: Marcos Roberts MD at 13:27 EDT Reading Location ID and State: [facility] / [place] , Service support , Physical Exam Const alert and no apparent distress Chest Chest Narrative: reproducible left sided chest pain. Chest: localized rib tenderness with anteroposterior compression Resp normal respiratory effort and no retractions Resp Narrative: diminished bilaterally. Cardio regular rate, regular rhythm, S1 normal heart sound and S2 normal heart sound GI normal to inspection, nondistended, normoactive bowel sounds and soft to palpation Extremity normal to inspection Assessment & Plan Assessment/Plan (1) COPD (chronic obstructive pulmonary disease): QUALIFIERS: COPD type: COPD with acute exacerbation Qualified Code(s): J44.1 - Chronic obstructive pulmonary disease with (acute) exacerbation PLAN: Unclear etiology of acute exacerbation. COVID 19: negative Chest x-ray personally reviewed and showed hyperinflated airways but no evidence of any infiltrate. No clear pneumonia: continue CTX, doxycycline for now Continue BDs Change steroids to methylpred. (2) Leukocytosis: QUALIFIERS: Leukocytosis type: unspecified Qualified Code(s): D72.829 - Elevated white blood cell count, unspecified PLAN: unclear significance empiric tmt with abx Check SCx, check strep and legionella antigens. PLAN: Plan Chronic conditions: CKD 3a?Creatinine 1.70 on admission. Appears baseline is around 1.5-1.7. Crohn's disease: Follows with Dr. Conrad with gastroenterology, last visit in the office on 08/28/2022. He was hospitalized in March 2022 with right lower quadrant abdominal pain. Colonoscopy done at that time showed scarring of the ileocecal valve most consistent with Crohn's disease. Was sent home at that time on prednisone with plan for slow taper. Is currently on prednisone 10 mg/day. Dr. Friend stated that he would like to switch to budesonide at some point, but not right now because he is doing well on the prednisone. History of PE/DVT? Continue home Eliquis. Hypertension? Continue home lisinopril and Lopressor. Hyperlipidemia? Continue home pravastatin. DVT prophylaxis: Eliquis CODE STATUS: Full code, verified Charges/Coding Visit Charges Inpatient E&M: 51038 Subs Hosp L2
[2022-10-05 09:36] LABS: Absolute Lymphocyte Count 1.09 X10^3/uL (0.83-4.51); Absolute Neutrophil Count 15.3 X10^3/uL (2.0-7.7); Basophil# 0.01 X10^3/uL; Basophil% 0.1 % (0-1); Hematocrit 42.9 % (40-54); Hemoglobin 14.1 g/dL (13.0-16.5); Lymphocyte # 1.09 X10^3/ul (0.83-4.51); Lymphocyte % 6.4 % (19-41); Mean Corp Hgb Conc 32.9 g/dL (32-36); Mean Corpuscular Hgb 32.2 pg (27.0-32.0); Mean Corpuscular Volume 97.9 fL (80-94); Mean Platelet Vol. 9.5 fl (6.2-12.0); Monocyte# 0.42 X10^3/uL; Monocyte% 2.5 % (0-10); NRBC Flagged by Analyzer 0 % (0-5); Neutrophil # 15.34 X10^3/uL (2.7-7.7); Neutrophil % 90.5 % (47-70); Platelet Count 296 K/mm3 (150-450); RBC Distribution Width SD 54.4 fl (35.1-43.9); Red Blood Count 4.38 M/mm3 (4.6-6.2); White Blood Count 16.9 K/mm3 (4.4-11.0)
[2022-10-05 09:51] LABS: Anion Gap 5 (5-15); BUN 29 mg/dL (7-18); BUN/Creat Ratio 17.8 RATIO (10-20); Chloride 107 mmol/L (98-107); Creatinine, Serum 1.63 mg/dL (0.70-1.30); EST Glomerular Filtration Rate 45 mL/min (>60); Est Glom Filt Rate - Afr Amer 54 mL/min (>60); Estimated Creatinine Clearance 41.27 ml/min; Glucose 197 mg/dL (74-106); Potassium 4.3 mmol/L (3.5-5.1); Sodium Level 138 mmol/L (136-145)
[2022-10-05] MEDS: Aspirin 81 MG TAB.CHEW PO (10:04)
[2022-10-05] MEDS: predniSONE 20 MG Tablet 40 MG PO (10:04)
[2022-10-05] MEDS: APIXABAN 5 MG TABLET PO ×2 (10:10→22:08)
[2022-10-05] MEDS: busPIRone 5 MG Tablet 10 MG PO ×2 (10:10→22:08)
[2022-10-05] MEDS: Metoprolol Tartrate 50 MG Tablet PO ×2 (10:10→22:08)
[2022-10-05] MEDS: Lisinopril 20 MG Tablet PO (10:10)
[2022-10-05] MEDS: Ceftriaxone 1 GM/50 ML BAG IV (10:12)
[2022-10-05] MEDS: Albuterol 2.5 MG/3 ML VIAL.NEB. INHALATION (11:52)
[2022-10-05] MEDS: Methylprednisolone Sod Succ 40 MG/ML VIAL IV ×2 (15:03→22:08)
[2022-10-05] MEDS: Pravastatin 20 MG Tablet 10 MG PO (22:08)
[2022-10-05] MEDS: 0.9% Saline Lock 10 ML Syringe IV (22:08)
[2022-10-06] VITALS (17 sets, daily range): BP systolic 105–127; BP diastolic 64–84; PULSE 78–94; RESP 18–22; TEMP 36.4–37.1; O2SAT 86–97
[2022-10-06] MEDS: Calcium Carbonate 500 MG Tablet PO ×5 (01:49→22:45)
[2022-10-06] MEDS: Ipratropium/Albuterol Sulfate 3 ML AMPUL.NEB INHALATION ×6 (03:46→23:13)
[2022-10-06] MEDS: Methylprednisolone Sod Succ 40 MG/ML VIAL IV ×3 (05:54→22:41)
[2022-10-06] MEDS: 0.9% Saline Lock 10 ML Syringe IV ×2 (05:56→22:51)
[2022-10-06 06:13] LABS: Absolute Lymphocyte Count 1.05 X10^3/uL (0.83-4.51); Absolute Neutrophil Count 17.2 X10^3/uL (2.0-7.7); Basophil# 0.02 X10^3/uL; Basophil% 0.1 % (0-1); Hematocrit 39.6 % (40-54); Hemoglobin 12.7 g/dL (13.0-16.5); Lymphocyte # 1.05 X10^3/ul (0.83-4.51); Lymphocyte % 5.5 % (19-41); Mean Corp Hgb Conc 32.1 g/dL (32-36); Mean Corpuscular Hgb 31.8 pg (27.0-32.0); Mean Platelet Vol. 9.4 fl (6.2-12.0); Monocyte# 0.43 X10^3/uL; Monocyte% 2.3 % (0-10); NRBC Flagged by Analyzer 0 % (0-5); Neutrophil # 17.22 X10^3/uL (2.7-7.7); Neutrophil % 90.6 % (47-70); Platelet Count 292 K/mm3 (150-450); RBC Distribution Width CV 14.8 % (11.6-14.6); RBC Distribution Width SD 54.9 fl (35.1-43.9)
--- NOTE | 2022-10-06 06:51 | PN.HOSP_ITS ---
Reason for Visit Reason for Visit: Diagnoses Elevated white blood cell count, unspecified (10/04/22) Chronic obstructive pulmonary disease with (acute) exacerbation (10/04/22) Chronic obstructive pulmonary disease, unspecified (10/04/22) Subjective Subjective Patient with no acute events overnight per self or per nursing report. Patient notes feeling improved since initial ED evaluation. He was up performing oxygenation trial with nursing this morning and required 2 L nasal cannula to maintain appropriate saturation resting and required 4 L to maintain appropriate saturation with any ambulatory attempts. He does feel significantly short of breath when he tried this this morning and felt as though his heart was racing. He does report significant improvement however since his initial symptom onset. Patient denies fevers, chills, nausea, emesis, abdominal pain, chest pain. Objective Data Objective Data Vital Signs: Vital Signs Temp Pulse Resp BP Pulse Ox O2 Del Method O2 Flow Rate 98.7 F 86 20 H 118/69 95 Nasal Cannula 3 10/06/22 02:00 10/06/22 03:46 10/06/22 03:46 10/06/22 02:00 10/06/22 02:00 10/06/22 02:05 10/06/22 02:05 FiO2 40 10/04/22 12:27 Oxygen Flow Rate (L/min) 3 Oxygen Delivery Method Nasal Cannula Weight: 152 lb 8.958 oz Body Mass Index (BMI) 22.5 Intake & Output: Intake and Output for Last 24 Hours 10/04/22 10/05/22 10/06/22 23:59 23:59 23:59 Intake Total 410 / 610 2070 / 2070 50 / 50 Output Total 1000 / 1250 750 / 750 Balance 410 / -40 1070 / 820 -700 / -700 Lab / Micro Data 10/06/22 06:05 10/05/22 09:14 Labs: Laboratory Results - last 24 hr 10/05/22 09:14: WBC 16.9 H, RBC 4.38 L, Hgb 14.1, Hct 42.9, MCV 97.9 H, MCH 32.2 H, MCHC 32.9, RDW Std Deviation 54.4 H, RDW Coeff of Meek 15.0 H, Plt Count 296, MPV 9.5, Immature Gran % (Auto) 0.500, Neut % (Auto) 90.5 H, Lymph % (Auto) 6.4 L, [place] % (Auto) 2.5, Eos % (Auto) 0.0, Baso % (Auto) 0.1, Absolute Neuts (auto) 15.3 H, Absolute Lymphs (auto) 1.09, Nucleated RBC % 0, Sodium 138, Potassium 4.3, Chloride 107, Carbon Dioxide 26.0, Anion Gap 5, BUN 29 H, Creatinine 1.63 H , Estim Creat Clear Calc 41.27, Est GFR (MDRD) Af Amer 54 L, Est GFR (MDRD) Non- Af 45 L, BUN/Creatinine Ratio 17.8, Glucose 197 H, Calcium 9.0 10/06/22 06:05: WBC 19.0 H, RBC 4.00 L, Hgb 12.7 L, Hct 39.6 L, MCV 99.0 H, MCH 31.8, MCHC 32.1, RDW Std Deviation 54.9 H, RDW Coeff of Meek 14.8 H, Plt Count 292, MPV 9.4, Immature Gran % (Auto) 1.500 H, Neut % (Auto) 90.6 H, Lymph % (Auto) 5.5 L, [place] % (Auto) 2.3, Eos % (Auto) 0.0, Baso % (Auto) 0.1, Absolute Neuts (auto) 17.2 H, Absolute Lymphs (auto) 1.05, Nucleated RBC % 0 Micro: Microbiology 10/05/22 14:30 Urine, Clean Catch Legionella Antigen - Final 10/05/22 14:30 Urine, Clean Catch Streptococcus pneumoniae Antigen (M - Final 10/04/22 12:45 Nasal Secretion SARS-CoV-2 Antigen (Rapid) - Final Physical Exam Narrative Physical Examination: General: Awake, alert, oriented x 3 and cooperative, seated upright in the ED bedside chair, fatigued otherwise no acute distress. Skin: Normal color, normal turgor, no icterus, no cyanosis except occasional sta ged ecchymoses. HEENT: AT/NC, EOMI, PERRLA, MMM. Lungs: Diminished, greater bases, appropriate effort, poor air movement in general but no marked tachypnea nor any rales, rhonchi or wheezing. Heart: Regular rate and rhythm; no gallop, rub audible. Abdomen: Soft, NTTP, ND, normal BS. Extremities: No cyanosis, clubbing, or edema. Neurological: Patient awake, alert, oriented as noted, cognitive function intact; pupils equally reactive to light and accommodation, cranial nerves II- XII grossly normal, moving all 4 extremities, no focal deficits, strength improving but still moderately global decreased secondary to acute presentation. Psychiatric: Affect appears normal, talkative, no acute evidence of depressive or anxiety feelings. Assessment & Plan Assessment/Plan (1) COPD with exacerbation: PLAN: Plan The patient is a 72 y/o M w/ PMHx: Crohn's disease, Asthma/COPD w/ Chronic Hypoxic Respiratory Failure (2-3L NC but per patient PRN only), HTN, HLD, Valvular heart disease, Tobacco use, Hx VTE (DVT, PE) on Eliquis who presents to the [facility] ED on 10/04/22 with history of #1. Acute on Chronic COPD exacerbation with Acute Hypoxia on Chronic with mild respiratory distress requiring BIPAP therapy in the ED (admission reports 2L NC home, patient notes 2-3L NC chronically but PRN only): Chest x-ray with hyperinflated lungs, CBC with WBC of 17, COVID-negative, administered BiPAP therapy in the ED for short course, presentation CBC with WBC 17.5 with left shift. Admitted to medical surgical floor, maintained on oxygen with wean as tolerated to room air, continue ATC duonebs, PRN albuterol, oral prednisone initially transitioned 10/05/22 to IV solumedrol, HOB, IS parameters, sputum cult ure pending, urine antigens negative, currently maintained on IV Rocephin (start date 10/04/22) with planned 5 day course, will obtain procalcitonin and if able to de-escalate off antibiotic therapy. AM oxygenation trial with necessity of 2 L nasal cannula at rest to maintain greater than 88% oxygenation and 4 L nasal cannula to maintain greater than 88% oxygenation with ambulatory activity. Disc ussed with case management/social work for discharge to home plan. Will likely discharge to home 10/08/2019 3 AM. #2. Macrocytic anemia, new: Admission CBC with hemoglobin 14.9 with MCV 100, 10/06/2022 CBC with hemoglobin 12.7, MCV 99, will continue to trend and recommend outpatient further evaluation and follow-up. #3. History of VTE: Patient with history of DVT, PE, we will continue patient h ome Eliquis regimen. #4. Crohn's disease: Following with Dr. Conrad gastroenterology, last colonos copy with scarring of the ileocecal valve consistent with Crohn's disease, discharged at that time with prednisone with slow taper down to 10 mg/day on presentation with plan future switch to budesonide, currently on IV solumedrol. #5. Hypertension: Continue home regimen including lisinopril, metoprolol, PRN hydralazine. #6. Hyperlipidemia: We will continue patient home statin therapy. #7. DVT prophylaxis: We will continue patient home Eliquis regimen. #8. CODE STATUS: Full code. Charges/Coding Visit Charges Inpatient E&M: 02682 Subs Hosp L2
[2022-10-06] MEDS: Metoprolol Tartrate 50 MG Tablet PO ×2 (09:31→22:41)
[2022-10-06] MEDS: Lisinopril 20 MG Tablet PO (09:31)
[2022-10-06] MEDS: Aspirin 81 MG TAB.CHEW PO (09:32)
[2022-10-06] MEDS: busPIRone 5 MG Tablet 10 MG PO ×2 (09:32→22:42)
[2022-10-06] MEDS: Ceftriaxone 1 GM/50 ML BAG IV (09:32)
[2022-10-06] MEDS: APIXABAN 5 MG TABLET PO ×2 (09:32→22:42)
--- NOTE | 2022-10-06 10:31 | CASEMGMT ---
Met with patient to complete DING form. DING form explained to patient who voiced understanding and signed form. Original form placed in pt?s chart and copy provided to patient. Katie Conn, Discharge Planning Asst.?
[2022-10-06 11:03] LABS: Procalcitonin 0.16 ng/mL (0.00-0.09)
--- NOTE | 2022-10-06 11:40 | CASEMGMT ---
RN?CM?[employer] INSTALLER HELPER?CM?to room to meet with patient for initial transition planning/care coordination?assessment.?RN?CM?introduced self and role at [facility].? Pt voices understanding and consents to?assessment?at this time.? Pt resting in bed in no distress at this time.? Pt is A/O at this time and answers all questions appropriately.?? Care providers, pharmacy, and demographics verified/updated at this time. PCP: Dr Cutler Specialists: Dr Kenny-pulmonology, Dr Clayton Root- ortho @ [facility], Dr Self-astronaut mission specialist @ [place] Preferred Pharmacy: [facility] Insurance: [employer], [employer] [facility] Prescription Benefit: yes Living Will/HPOA: Pt does not have LW, but he does have HCPOA, who is his , Abigail. LNOK: , Abigail Living Arrangements: Patient lives with in a mobile home with ramp entrance. Patient states he is independent w/ADL's. does the laundry and they share the other home mgnt tasks. Transportation: self, . Pt denies transportation concerns. DME:Patient has a built-in shower seat, medical alert, knee brace, cane, walker, nebulizers, pulse ox, and O2 through [employer]. He states he wears it 2-3 L/M PRN during the day and wears it every HS. He has a concentrator and portable tanks and he thinks his will be be able to bring in a portable tank @ d/c. Will monitor for home oxygen at discharge, patient prefers [employer]. SNF/HHC: Patient has previously been to [facility]. No hx of HHC. Pt declines need for HHC. Pt wishes to return home and states has no concerns with going home at time of discharge.? CM?to follow for any increase in home oxygen needs and any further discharge planning/needs.? Pt voices no further concerns/needs at this time.? Advised pt to ask for?CM?if any further questions/concerns/needs arise.? Voices understanding. PLAN:??Home. Follow for any increase in Home O2 needs. David BSN?RN?CM
--- NOTE | 2022-10-06 18:15 | CASEMGMT ---
Advance Directive Validation This financial underwriter met with patient to verify and validate advanced directives. Patient reports does not actually have signed advanced directives in place but is working with an business attorney to have this done soon. Patient plans to identify his Abigail as the power of business attorney for healthcare. As patient is to Abigail, Abigail would be the next online without the advance directives for decision-making purposes. Note while this financial underwriter was in the room, patient was talkative, reviewing life experiences and coping related to change in health and potential need for oxygen in the future. Patient talked about time in the , different forms of work throughout the years, and liking to stay busy. Patient reports to have outside and indoor animals that keep the patient busy at this point. Patient also talked about experiences of dressing at the [place], wanting to give wilian to young children throughout the years. Much supportive listening, reflection and encouragement provided to the patient. Patient teary-eyed intermittently during conversation. Patient expressed thanks for having time to be able to talk. -JADE Schmidt, CORPORATE ASSOCIATE *This note was generated with [employer] dictation software. It may contain incorrect words, spelling, and punctuation that were not noted in review of the chart prior to signing*
[2022-10-06] MEDS: Pravastatin 20 MG Tablet 10 MG PO (22:42)
[2022-10-06] MEDS: Ondansetron 4 MG/2 ML Vial IV (22:45)
[2022-10-07] VITALS (8 sets, daily range): BP systolic 112–131; BP diastolic 68–71; PULSE 78–89; RESP 16–22; TEMP 36.4–36.8; O2SAT 87–96
[2022-10-07] MEDS: Ipratropium/Albuterol Sulfate 3 ML AMPUL.NEB INHALATION ×3 (03:23→11:17)
--- NOTE | 2022-10-07 06:31 | PCM.PN.HOSP ---
Reason for Visit Reason for Visit: Diagnoses Elevated white blood cell count, unspecified (10/06/22) Chronic obstructive pulmonary disease with (acute) exacerbation (10/06/22) Chronic obstructive pulmonary disease, unspecified (10/06/22) Subjective Subjective Patient with no acute events overnight per self and per nursing report. Patient tolerating transition to oral antibiotics and denies any worsening of his breathing, continues to improve. Repeat oxygenation trial this morning improved from day prior noted to be 88% on room air at rest however when he was ambulated he did require 3 L nasal cannula to be above 80% at 92%. Discussed plan of care and patient is amenable to discharge to home on continued steroid burst as well as antibiotic therapy and refill of his DuoNebs per his request. Patient also interested in palliative consultation which will be done for outpatient. Patient denies fevers, chills, nausea, emesis, abdominal pain, chest pain. Objective Data Objective Data Vital Signs: Vital Signs Temp Pulse Resp BP Pulse Ox O2 Del Method O2 Flow Rate 98.5 F 82 20 H 127/84 H 94 Nasal Cannula 2 10/06/22 22:30 10/07/22 03:23 10/07/22 03:23 10/06/22 22:41 10/06/22 22:30 10/06/22 22:30 10/06/22 22:30 FiO2 40 10/04/22 12:27 Oxygen Flow Rate (L/min) [ 4 AMBULATING with Oxygen #2] Oxygen Flow Rate (L/min) [ 2 AMBULATING with Oxygen #1] Oxygen Flow Rate (L/min) [At 2 REST with Oxygen] Oxygen Flow Rate (L/min) 2 Oxygen Delivery Method Nasal Cannula Weight: 152 lb 8.958 oz Body Mass Index (BMI) 22.5 Intake & Output: Intake and Output for Last 24 Hours 10/05/22 10/06/22 10/07/22 23:59 23:59 23:59 Intake Total 2070 / 2070 870 / 1130 260 / 260 Output Total 1000 / 1250 750 / 1325 575 / 575 Balance 1070 / 820 120 / -195 -315 / -315 Lab / Micro Data 10/07/22 06:56 10/07/22 06:56 Labs: Laboratory Results - last 24 hr 10/06/22 10:01: Procalcitonin 0.16 H Micro: Microbiology 10/06/22 17:04 Mucosa - Nasopharyngeal Respiratory Panel (PCR) - Final 10/05/22 15:00 Sputum, Expectorated/Coughed Gram Stain - Final 10/05/22 15:00 Sputum, Expectorated/Coughed Respiratory Culture - Preliminary Appears to be normal respiratory shawna. Further studies to follow. 10/05/22 14:30 Urine, Clean Catch Legionella Antigen - Final 10/05/22 14:30 Urine, Clean Catch Streptococcus pneumoniae Antigen (M - Final 10/04/22 12:45 Nasal Secretion SARS-CoV-2 Antigen (Rapid) - Final Physical Exam Narrative Physical Examination: General: Awake, alert, oriented x 3 and cooperative, seated upright in the MS bed, no acute distress, mildly fatigued. Skin: Normal color, normal turgor, no icterus, no cyanosis except occasional staged ecchymoses. HEENT: AT/NC, EOMI, PERRLA, MMM. Lungs: Remains diminished but improved since day prior, greater bases, appropriate effort, no rales, rhonchi or wheezing, on supplemental oxygen. Heart: Regular rate and rhythm; no gallop, rub audible. Abdomen: Soft, NTTP, ND, normal BS. Extremities: No cyanosis, clubbing, or edema. Neurological: Patient awake, alert, oriented as noted, cognitive function intact; pupils equally reactive to light and accommodation, cranial nerves II-XII grossly normal, moving all 4 extremities, no focal deficits, strength improving, mildly to moderately global decrease. Psychiatric: Affect appears normal, no acute evidence of depressive or anxiety feelings. 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 Acute on Chronic COPD exacerbation with Acute Hypoxia on Chronic with mild respiratory distress requiring BIPAP therapy in the ED (admission reports 2L NC home, patient notes 2-3L NC chronically but PRN only): Chest x-ray with hyperinflated lungs, CBC with WBC of 17, COVID-negative, administered BiPAP therapy in the ED for short course, presentation CBC with WBC 17.5 with left shift. Admitted to medical surgical floor, maintained on oxygen with wean as tolerated to room air, continue ATC duonebs, PRN albuterol, oral prednisone initially transitioned 10/05/22 to IV solumedrol, HOB, IS parameters, sputum culture pending, urine antigens negative, currently maintained on IV Rocephin (start date 10/04/22) with planned 5 day course with 10/07/22 transition to omnicef for discharge planning, procalcitonin 0.16. 10/06/2022 AM oxygenation trial with necessity of 2 L nasal cannula at rest to maintain greater than 88% oxygenation and 4 L nasal cannula to maintain greater than 88% oxygenation with ambulatory activity with repeat 10/07/2022 oxygenation trial with noted 88% oxygenation on room air at rest however patient required 92% 3 L nasal cannula to maintain appropriate saturations with activity. Discussed with case management/social work for discharge to home plan. Given stable overnight will plan discharge to home today. #2. Macrocytic anemia, new: Admission CBC with hemoglobin 14.9 with MCV 100, 10/06/2022 CBC with hemoglobin 12.7, MCV 99-->10/07/22 Hgb 12.7, MCV 97.4. Given presentation with acute illness suspect the 12 range is more baseline and has been stable. We recommended continued outpatient evaluation per PCP given stable since presentation. #3. History of VTE: Patient with history of DVT, PE, we will continue patient home Eliquis regimen. #4. Crohn's disease: Following with Dr. Conrad gastroenterology, last colonoscopy with scarring of the ileocecal valve consistent with Crohn's disease, discharged at that time with prednisone with slow taper down to 10 mg/day on presentation with plan future switch to budesonide, currently on IV solumedrol but as noted planned discharge with plan taper and then return to his home oral dose. #5. Hypertension: Continue home regimen including lisinopril, metoprolol, PRN hydralazine. #6. Hyperlipidemia: We will continue patient home statin therapy. #7. DVT prophylaxis: We will continue patient home Eliquis regimen. #8. CODE STATUS: Full code. Charges/Coding Visit Charges Inpatient E&M: 08256 Subs Hosp L2
[2022-10-07] MEDS: Albuterol 2.5 MG/3 ML VIAL.NEB. INHALATION (06:46)
[2022-10-07] MEDS: Methylprednisolone Sod Succ 40 MG/ML VIAL IV (07:02)
[2022-10-07] MEDS: Calcium Carbonate 500 MG Tablet PO (07:02)
[2022-10-07] MEDS: 0.9% Saline Lock 10 ML Syringe IV (07:05)
[2022-10-07 07:15] LABS: Absolute Lymphocyte Count 0.91 X10^3/uL (0.83-4.51); Absolute Neutrophil Count 14.4 X10^3/uL (2.0-7.7); Basophil# 0.01 X10^3/uL; Basophil% 0.1 % (0-1); Hematocrit 38.1 % (40-54); Hemoglobin 12.7 g/dL (13.0-16.5); Lymphocyte # 0.91 X10^3/ul (0.83-4.51); Lymphocyte % 5.6 % (19-41); Mean Corp Hgb Conc 33.3 g/dL (32-36); Mean Corpuscular Hgb 32.5 pg (27.0-32.0); Mean Corpuscular Volume 97.4 fL (80-94); Mean Platelet Vol. 9.3 fl (6.2-12.0); Monocyte# 0.55 X10^3/uL; Monocyte% 3.4 % (0-10); NRBC Flagged by Analyzer 0 % (0-5); Neutrophil # 14.41 X10^3/uL (2.7-7.7); Neutrophil % 89.4 % (47-70); Platelet Count 295 K/mm3 (150-450); RBC Distribution Width CV 14.9 % (11.6-14.6); RBC Distribution Width SD 53.5 fl (35.1-43.9); Red Blood Count 3.91 M/mm3 (4.6-6.2); White Blood Count 16.1 K/mm3 (4.4-11.0)
[2022-10-07 07:59] LABS: ALB/GLOB Ratio 0.8 RATIO (0.9-2.4); AST(SGOT) 13 U/L (15-37); Alanine Aminotransfer ALT/SGPT 16 U/L (16-61); Albumin, Serum 2.6 g/dL (3.2-5.0); Alkaline Phosphatase 37 U/L (45-117); Anion Gap 5 (5-15); BUN 34 mg/dL (7-18); BUN/Creat Ratio 26.2 RATIO (10-20); Calcium,Total 9.2 mg/dL (8.5-10.1); Chloride 110 mmol/L (98-107); EST Glomerular Filtration Rate 58 mL/min (>60); Est Glom Filt Rate - Afr Amer 70 mL/min (>60); Estimated Creatinine Clearance 51.75 ml/min; Globulin 3.4 g/dL (2.2-4.2); Glucose 125 mg/dL (74-106); Potassium 4.5 mmol/L (3.5-5.1); Sodium Level 140 mmol/L (136-145)
[2022-10-07] MEDS: Metoprolol Tartrate 50 MG Tablet PO (08:38)
[2022-10-07] MEDS: Bisacodyl 5 MG Tablet PO (08:38)
[2022-10-07] MEDS: Aspirin 81 MG TAB.CHEW PO (08:39)
[2022-10-07] MEDS: APIXABAN 5 MG TABLET PO (08:39)
[2022-10-07] MEDS: busPIRone 5 MG Tablet 10 MG PO (08:40)
[2022-10-07] MEDS: Lisinopril 20 MG Tablet PO (08:41)
[2022-10-07] MEDS: Cefdinir 300 MG Capsule PO (10:58)
--- NOTE | 2022-10-07 11:02 | CASEMGMT ---
Addendum entered by Madeline Roblero 10/07/22 12:11: Pt qualifies for O2 @ 2 l/m @ rest and 3 l/m w/exertion. Pt and , who is @ bedside, aware. Script for increase in O2 needs [place] [facility] [place] [facility]. has brought pt's portable O2 in for pt to go home on. Questions answered. Pt and deny having further d/c needs at this time. David MELISSA RN, CM Original Note: TIFFANY WALKER NOTE: Per Dr Gibson pt to be discharged home today. TIFFANY Dunn, to do home O2 testing. Pt meets criteria for Palliative referral per [facility] screening tool. TIFFANY WALKER discussed palliative w/pt and he is interested in referral. Dr Gibson made aware and new order received. Palliative referral sent to [facility] via e-mail. Pt requesting to get any new meds @ discharge from [facility] in [place] [address]. Call placed to Orly Burrows @ [facility] @ [phone]. Per Orly Burrows, they only send meds out via mail from [place] [address], that pt unable to nut picker the meds in [address] and he would have to go to [place] to pick them up, if he wishes. Pt made aware. He states to have any new meds sent to [facility] in [place] [address] instead. David MELISSA RN, CM
--- NOTE | 2022-10-07 11:29 | DCINST_ITS ---
Discharge Instructions Diet Discharge Diet: Low fat / Low cholesterol Activity Discharge Activity: - (Avoid activity more aggressive than mild to moderate or prolonged heat exposure until cleared at follow-up with Primary care and completed your medication discharge regimen.) May resume sexual activity in: 1-2 weeks (Would wait until completed your discharge medication regimen and cleared per your PCP.) Weight Bearing Status: Weight bearing as tolerated Dressing / Incision Call your doctor if you observe: Fever of 101 or Higher, Numbness or Tingling, Shortness of breath, Dizziness, Fainting spells, Increased palpitations (irregular heartbeat), Calf discomfort and Uncontrolled pain Follow Up Care Test Results: Test results from this visit will be discussed in further detail at your follow- up appointment, if applicable. Discharge Plan Admission Admit Date/Time: 10/06/22 16:15 Primary Reason for Your Visit: Acute on Chronic COPD Exacerbation, Acute on Chronic Hypoxia Attending Provider: Deandra Gibson Primary Care Provider: Cherelle Cutler Consulting Providers: Aj Garza; Ducth Nixon Instructions Patient Instructions: Discharge Instructions: COPD Discharge Orders/Prescriptions Prescriptions: New cefdinir 300 mg Capsule 300 mg PO Q12 2 Days Qty: 4 0RF prednisone 20 mg tablet 40 mg PO DAILY 5 Days Qty: 10 0RF Continued aspirin 81 MG tablet,chewable 81 mg PO DAILY@0800 Patient Comments: [facility] budesonide-formoterol [Symbicort] 1 INHALER inhaler 2 puff PO BID Patient Comments: COPD metoprolol tartrate 50 MG tablet 50 mg PO BID apixaban 5 MG tablet 5 mg PO BID lisinopril 20 MG tablet 20 mg PO DAILY albuterol sulfate 18 GM HFA aerosol inhaler 2 puff inhalation Q4H PRN PRN (Reason: Sob &/Or Wheezing) pravastatin 10 mg tablet 10 mg PO QHS Patient Comments: TAKE 1 TABLET BY MOUTH EVERY DAY buspirone 10 mg tablet 10 mg PO BID Patient Comments: TAKE ONE TABLET BY MOUTH TWICE A DAY ipratropium-albuterol 0.5 mg-3 mg(2.5 mg base)/3 mL solution for nebulization 3 ml inhalation Q6H PRN (Reason: shortness of breath or wheezing) Qty: 180 0RF Held prednisone 10 mg tablet 10 mg PO DAILY Qty: 30 3RF Hold Instructions: Resume on 10/13/22. May restart your low dose prednisone following completion of burst steroid 5 day treatment at discharge. Referrals / Follow Up: Cherelle Cutler DO [Primary Care Provider] - (Please follow-up within 3-5 days to review admission. If you complete your burst steroids and again feel short of breath or are wheezing again please notify your primary care office immediately to prolong this regimen or taper it.) Disposition Disposition (needs filled in before D/C Order can be placed): Home Health Service
--- NOTE | 2022-10-07 11:36 | PCM.DC.SUM ---
Providers Date of Admission: 10/06/22 Date of Discharge: 10/07/22 Primary Care Physician: Dr. Cherelle Cutler, Reason For Visit: COPD EXACERBATION Diagnosis Discharge Diagnosis (1) COPD with exacerbation: Status: Chronic Code(s): J44.1 - Chronic obstructive pulmonary disease with (acute) exacerbation Plan: Discharge Diagnoses: #1. Acute on Chronic COPD exacerbation with Acute Hypoxia on Chronic with mild respiratory distress requiring BIPAP therapy in the ED (admission reports 2L NC home, patient notes 2-3L NC chronically but PRN only) #2. Macrocytic anemia, new #3. History of VTE #4. Crohn's disease #5. Hypertension #6. Hyperlipidemia #7. CODE STATUS: Full code. Medications at Discharge Home Medications aspirin 81 mg chewable tablet 81 mg PO DAILY@0800 02/03/14 budesonide-formoterol HFA 160 mcg-4.5 mcg/actuation aerosol inhaler (Symbicort) 2 puff PO BID 02/03/14 albuterol sulfate 90 mcg/actuation aerosol inhaler 2 puff inhalation Q4H PRN PRN Sob &/Or Wheezing 08/24/18 apixaban 5 mg tablet 5 mg PO BID 08/24/18 lisinopril 20 mg tablet 20 mg PO DAILY bp 08/24/18 metoprolol tartrate 50 mg tablet 50 mg PO BID 08/24/18 prednisone 10 mg tablet 10 mg PO DAILY #30 tabs 09/08/22 buspirone 10 mg tablet 10 mg PO BID 10/04/22 pravastatin 10 mg tablet 10 mg PO QHS 10/04/22 cefdinir 300 mg capsule 300 mg PO Q12 2 days #4 caps 10/07/22 ipratropium 0.5 mg-albuterol 3 mg (2.5 mg base)/3 mL nebulization soln 3 ml inhalation Q6H PRN shortness of breath or wheezing #180 mL 10/07/22 prednisone 20 mg tablet 40 mg (2 x 20 mg) PO DAILY 5 days #10 tabs 10/07/22 Hospital Course Procedures EKG Summary of Care Provided Minutes Spent on Discharge: 35 Hospital Course: The patient is a 72 y/o M w/ PMHx: Crohn's disease, Asthma/COPD w/ Chronic Hypoxic Respiratory Failure (2-3L NC but per patient PRN only), HTN, HLD, Valvular heart disease, Tobacco use, Hx VTE (DVT, 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 Chest x-ray with hyperinflated lungs, CBC with WBC of 17, COVID-negative, administered BiPAP therapy in the ED for short course, presentation CBC with WBC 17.5 with left shift. Admitted to medical surgical floor, maintained on oxygen with wean as tolerated to room air, continue ATC duonebs, PRN albuterol, oral prednisone initially transitioned 10/05/22 to IV solumedrol, HOB, IS parameters, sputum culture pending, urine antigens negative, currently maintained on IV Rocephin (start date 10/04/22) with planned 5 day course with 10/07/22 transition to omnicef for discharge planning, procalcitonin 0.16. 10/06/2022 AM oxygenation trial with necessity of 2 L nasal cannula at rest to maintain greater than 88% oxygenation and 4 L nasal cannula to maintain greater than 88% oxygenation with ambulatory activity with repeat 10/07/2022 oxygenation trial with noted 88% oxygenation on room air at rest however patient required 92% 3 L nasal cannula to maintain appropriate saturations with activity. Admission CBC with hemoglobin 14.9 with MCV 100, 10/06/2022 CBC with hemoglobin 12.7, MCV 99-->10/07/22 Hgb 12.7, MCV 97.4. Given presentation with acute illness suspect the 12 range is more baseline and has been stable. We recommended continued outpatient evaluation per PCP given stable since presentation. Given clinical improvement, stability patient amenable to discharge to home on continue supplemental oxygen with his home company, completion of antibiotic therapy as well as burst steroid therapy with plan follow-up with primary care physician. Weight / BMI Weight Weight: 152 lb 8.958 oz Body Mass Index (BMI) 22.5 ABG / Lab / Microbiology Data 10/07/22 06:56 10/07/22 06:56 Laboratory: Laboratory Results - last 24 hr 10/07/22 06:56: WBC 16.1 H, RBC 3.91 L, Hgb 12.7 L, Hct 38.1 L, MCV 97.4 H, MCH 32.5 H, MCHC 33.3, RDW Std Deviation 53.5 H, RDW Coeff of Meek 14.9 H, Plt Count 295, MPV 9.3, Immature Gran % (Auto) 1.500 H, Neut % (Auto) 89.4 H, Lymph % (Auto) 5.6 L, Owen % (Auto) 3.4, Eos % (Auto) 0.0, Baso % (Auto) 0.1, Absolute Neuts (auto) 14.4 H, Absolute Lymphs (auto) 0.91, Nucleated RBC % 0, Sodium 140, Potassium 4.5, Chloride 110 H, Carbon Dioxide 25.0, Anion Gap 5, BUN 34 H, Creatinine 1.30, Estim Creat Clear Calc 51.75, Est GFR (MDRD) Af Amer 70, Est GFR (MDRD) Non-Af 58 L, BUN/Creatinine Ratio 26.2 H, Glucose 125 H, Calcium 9.2, Total Bilirubin 0.30, AST 13 L, ALT 16, Alkaline Phosphatase 37 L, Total Protein 6.0 L, Albumin 2.6 L, Globulin 3.4, Albumin/Globulin Ratio 0.8 L Microbiology: Microbiology 10/05/22 15:00 Sputum, Expectorated/Coughed Gram Stain - Final 10/05/22 15:00 Sputum, Expectorated/Coughed Respiratory Culture - Preliminary Gram negative tom 10/06/22 17:04 Mucosa - Nasopharyngeal Respiratory Panel (PCR) - Final 10/05/22 14:30 Urine, Clean Catch Legionella Antigen - Final 10/05/22 14:30 Urine, Clean Catch Streptococcus pneumoniae Antigen (M - Final 10/04/22 12:45 Nasal Secretion SARS-CoV-2 Antigen (Rapid) - Final D/C Instructions Discharge Diet: Low fat / Low cholesterol May resume sexual activity in: 1-2 weeks (Would wait until completed your discharge medication regimen and cleared per your PCP.) Weight Bearing Status: Weight bearing as tolerated Call your doctor if you observe: Fever of 101 or Higher, Numbness or Tingling, Shortness of breath, Dizziness, Fainting spells, Increased palpitations (irregular heartbeat), Calf discomfort and Uncontrolled pain Meaningful Use Info Meaningful Use Diagnoses (Choose all that apply): None applicable Discharge Plan Admission Admit Date/Time: 10/06/22 16:15 Primary Reason for Your Visit: Acute on Chronic COPD Exacerbation, Acute on Chronic Hypoxia Attending Provider: Deandra Gibson Primary Care Provider: Cherelle Cutler Consulting Providers: Aj Garza; Dutch Nixon Instructions Patient Instructions: Discharge Instructions: COPD Discharge Orders/Prescriptions Prescriptions: New cefdinir 300 mg Capsule 300 mg PO Q12 2 Days Qty: 4 0RF prednisone 20 mg tablet 40 mg PO DAILY 5 Days Qty: 10 0RF Continued aspirin 81 MG tablet,chewable 81 mg PO DAILY@0800 Patient Comments: [facility] budesonide-formoterol [Symbicort] 1 INHALER inhaler 2 puff PO BID Patient Comments: COPD metoprolol tartrate 50 MG tablet 50 mg PO BID apixaban 5 MG tablet 5 mg PO BID lisinopril 20 MG tablet 20 mg PO DAILY albuterol sulfate 18 GM HFA aerosol inhaler 2 puff inhalation Q4H PRN PRN (Reason: Sob &/Or Wheezing) pravastatin 10 mg tablet 10 mg PO QHS Patient Comments: TAKE 1 TABLET BY MOUTH EVERY DAY buspirone 10 mg tablet 10 mg PO BID Patient Comments: TAKE ONE TABLET BY MOUTH TWICE A DAY ipratropium-albuterol 0.5 mg-3 mg(2.5 mg base)/3 mL solution for nebulization 3 ml inhalation Q6H PRN (Reason: shortness of breath or wheezing) Qty: 180 0RF Held prednisone 10 mg tablet 10 mg PO DAILY Qty: 30 3RF Hold Instructions: Resume on 10/13/22. May restart your low dose prednisone following completion of burst steroid 5 day treatment at discharge. Referrals / Follow Up: Cherelle Cutler, [Primary Care Provider] - (Please follow-up within 3-5 days to review admission. If you complete your burst steroids and again feel short of breath or are wheezing again please notify your primary care office immediately to prolong this regimen or taper it.) Disposition Disposition (needs filled in before D/C Order can be placed): Home Health Service Charges/Coding Visit Charges Inpatient E&M: 20377 Disch Hosp >30min
--- NOTE | 2022-10-07 11:54 | PHA.DC_ITS ---
Pharmacy [facility] has performed discharge medication reconciliation and counseling for this patient. Hold regular 10mg prednisone dose while on burst. 1. CEFDINIR 300MG PO Q12 X 2 DAYS The patient's discharge medication list was reviewed for discrepancies and discrepancies were resolved. The patient was counseled on the following discharge medications and changes in medications for homegoing were reviewed. The Reason for Use, instructions for use, and potential side effects were reviewed for all new medications. The patient's questions regarding all of their medications were answered. The patient was able to verbally demonstrate an understanding of their discharge medications. Patient counseled by pharmacy account directorAranza. Medications at Discharge Home Medications aspirin 81 mg chewable tablet 81 mg PO DAILY@0800 02/03/14 budesonide-formoterol HFA 160 mcg-4.5 mcg/actuation aerosol inhaler (Symbicort) 2 puff PO BID 02/03/14 albuterol sulfate 90 mcg/actuation aerosol inhaler 2 puff inhalation Q4H PRN PRN Sob &/Or Wheezing 08/24/18 apixaban 5 mg tablet 5 mg PO BID 08/24/18 lisinopril 20 mg tablet 20 mg PO DAILY bp 08/24/18 metoprolol tartrate 50 mg tablet 50 mg PO BID 08/24/18 prednisone 10 mg tablet 10 mg PO DAILY #30 tabs 09/08/22 buspirone 10 mg tablet 10 mg PO BID 10/04/22 pravastatin 10 mg tablet 10 mg PO QHS 10/04/22 cefdinir 300 mg capsule 300 mg PO Q12 2 days #4 caps 10/07/22 ipratropium 0.5 mg-albuterol 3 mg (2.5 mg base)/3 mL nebulization soln 3 ml inhalation Q6H PRN shortness of breath or wheezing #180 mL 10/07/22 prednisone 20 mg tablet 40 mg (2 x 20 mg) PO DAILY 5 days #10 tabs 10/07/22
== END 2022-10-07 12:35 | disposition home or self-care (01) | DRG 191 ==
LOC: ED 15:16 → MS3 16:14
PROVIDERS: Admitting Provider Hospitalist; Emergency Provider Emergency Medicine; PCP Family Medicine; Visit Provider Family Medicine
DX: J44.1 Chronic obstructive pulmonary disease with (acute) exacerbation (principal); K50.90 Crohn's disease, unspecified, without complications; D53.9 Nutritional anemia, unspecified; N18.31 Chronic kidney disease, stage 3a; I12.9 Hypertensive chronic kidney disease with stage 1 through stage 4 chronic kidney disease, or unspecified chronic kidney disease; E78.5 Hyperlipidemia, unspecified; Z87.891 Personal history of nicotine dependence; Z79.82 Long term (current) use of aspirin; Z79.51 Long term (current) use of inhaled steroids; Z79.2 Long term (current) use of antibiotics; Z79.01 Long term (current) use of anticoagulants; R06.03 Acute respiratory distress; Z86.718 Personal history of other venous thrombosis and embolism; Z86.711 Personal history of pulmonary embolism
CPT/HCPCS: 36415; 71045; 80048; 80053; 82803; 83880; 84145; 84484; 85025; 87070; 87077; 87186; 87205; 87449; 87633; 87811; 93005; 94002; 94640; 94762; 97110; 97162; 97165; 97530; 99285; J7050; A4216; J2405

== ENCOUNTER 2023-06-10 14:30 | Outpatient (RCR) | payer MEDICARE, SELFPAY ==
[2023-05-27 13:32] VITALS: BP 84/55; PULSE 80; RESP 18; TEMP 36.6; BMI 23.6
--- NOTE | 2023-05-27 14:46 | PCM.WC.HP ---
History of Present Illness Date of Service: 05/27/23 Chief Complaint: Left foot wound History of Wound: Left foot wound secondary to surgery from outside provider Progress of Wound: Mr. Oliva is a 73-year-old male who is presenting to wound care center today for follow-up and evaluation for full-thickness ulceration secondary to an office procedure by an outside provider. Patient states that he had a bone resected in the office of an outside provider and unfortunately the wound opened up and has been dealing with a full-thickness wound for the past 1 to 2 weeks. Patient has been on oral antibiotics, doxycycline with mild improvement to the full-thickness wound. Patient does admit to smoking anywhere between 1 and 4 packs/day, but per the patient he states that he smokes 1 pack of cigarettes every 2 days. 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 Patient denies any trauma to the left foot. He denies constitutional symptoms. No other pedal complaints at this time. [facility] Medical History Asthma COLD (chronic obstructive lung disease) COPD (chronic obstructive pulmonary disease) HTN (hypertension) Hx of blood clots Tobacco dependence syndrome Home Medications aspirin 81 mg chewable tablet 81 mg PO DAILY@0800 02/03/14 [History Last Taken 10/03/22] budesonide-formoterol HFA 160 mcg-4.5 mcg/actuation aerosol inhaler (Symbicort) 2 puff PO BID 02/03/14 [History Last Taken 10/03/22] albuterol sulfate 90 mcg/actuation aerosol inhaler 2 puff inhalation Q4H PRN PRN Sob &/Or Wheezing 08/24/18 [History Last Taken Unknown] apixaban 5 mg tablet 5 mg PO BID 08/24/18 [History Last Taken 10/03/22] lisinopril 20 mg tablet 20 mg PO DAILY bp 08/24/18 [History Last Taken 05/27/23] metoprolol tartrate 50 mg tablet 50 mg PO BID 08/24/18 [History Last Taken 10/03/22] pravastatin 10 mg tablet 10 mg PO QHS 10/04/22 [History Last Taken 10/03/22] sucralfate 1 gram tablet (Carafate) 1 g PO TID 30 days #90 tabs 10/24/22 [Rx Last Taken Unknown] PEP device #1 ea 11/06/22 [Rx Last Taken Unknown] folic acid 400 mcg tablet 0.4 mg PO DAILY 11/06/22 [History Last Taken Unknown] umeclidinium 62.5 mcg/actuation blister powder for inhalation (Incruse Ellipta) 1 inh inhalation QDAY #30 ea 11/18/22 [Rx Last Taken Unknown] prednisone 10 mg tablet 10 mg PO DAILY 90 days #90 tabs 01/30/23 [Rx Last Taken Unknown] ipratropium 0.5 mg-albuterol 3 mg (2.5 mg base)/3 mL nebulization soln 3 ml inhalation Q4H PRN shortness of breath or wheezing #540 mL 03/18/23 [Rx Last Taken Unknown] buspirone 10 mg tablet 15 mg PO TID 04/16/23 [History Last Taken Unknown] cyanocobalamin (vitamin B-12) 100 mcg tablet (Vitamin B-12) 100 mcg PO DAILY 04/16/23 [History Last Taken 05/27/23] guaifenesin 1,200 mg tablet, extended release 12 hr 1,200 mg PO Q12H #60 tabs 04/16/23 [Rx Last Taken Unknown] budesonide-formoterol HFA 160 mcg-4.5 mcg/actuation aerosol inhaler (Symbicort) 2 inh inhalation BID 05/27/23 [History Last Taken Unknown] cholecalciferol (vitamin D3) 25 mcg (1,000 unit) capsule (Vitamin D3) 25 mcg PO DAILY 05/27/23 [History Last Taken Unknown] naproxen sodium 220 mg capsule (Aleve) 440 mg PO BID 05/27/23 [History Last Taken Unknown] oxycodone-acetaminophen 5 mg-325 mg tablet (Percocet) 1 tab PO Q6H PRN pain 7 days #28 tabs 05/27/23 [Rx Last Taken Unknown] umeclidinium 62.5 mcg/actuation blister powder for inhalation (Incruse Ellipta) 1 inh inhalation DAILY 05/27/23 [History Last Taken Unknown] Allergy/AdvReac Type Severity Reaction Status Date / Time azithromycin [From Zithromax] Allergy Swelling Verified 04/16/23 13:24 Penicillins Allergy Hives Verified 04/16/23 13:24 shellfish derived Allergy Hives Verified 04/16/23 13:24 venom-honey bee Allergy Hives Verified 04/16/23 13:24 [bee venom (honey bee)] chocolate flavor AdvReac Diarrhea Verified 04/16/23 13:24 Surgical History H/O neck surgery Heart valve replaced History of appendectomy History of hand surgery Social History Smoking Status: Light Smoker (<10/day) alcohol intake: current alcohol intake frequency: a few times a week Alcohol type: beer seatbelt use: always Vital Signs Vital Signs Vital Signs: 05/27/23 13:32 Temperature 98 F Temperature Source Temporal Pulse Rate 80 Respiratory Rate 18 Blood Pressure 84/55 L Blood Pressure Mean 64 Blood Pressure Source Monitor Blood Pressure Position Semi-Fowlers Blood Pressure Location Left Arm Oxygen Flow Rate (L/min) 3 Weight Weight: 72.575 kg Body Mass Index (BMI) 23.6 Physical Exam Narrative Vascular: PT, peroneal arteries are biphasic on Doppler. AT and DP are monophasic on Doppler. CFT is 4 seconds. Nonpitting edema appreciated to the left lower extremity. Skin temperature gradient is warm to cool from proximal ankle to distal digits bilateral. Neurological: Light touch intact. Protective sensation is intact. Patient response to painful stimuli. Dermatological: Full-thickness ulceration to the lateral aspect of the left foot with bone exposed. Ulceration measures 4.0 x 2.0 x 0.1 cm. Positive probe to bone. Wound base is fibrotic in nature with mild malodor. Periwound erythema which is blanchable. No active drainage at this time. No purulent drainage appreciated. Evidence diffuse xerosis appreciated bilateral lower extremity. Excisional debridement down to and including subcutaneous tissue, fascia, muscle and bone with a 15 blade and pickup without incident. Predebridement measurement is 3.9 x 1.8 x 0.2 cm. Postdebridement measurement is 4.0 x 2.0 x 0.4 cm. Musculoskeletal: Moderate to severe palpatory tenderness appreciated the full-thickness ulceration of the left foot. No pain with calf compression. Debridement Note Debridement Note Debridement Free Text: Excisional debridement down to and including subcutaneous tissue, fascia, muscle and bone with a 15 blade and pickup without incident. Predebridement measurement is 3.9 x 1.8 x 0.2 cm. Postdebridement measurement is 4.0 x 2.0 x 0.4 cm. 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 ) Arrival Mode Cane,Wheelchair Transfer Assistance None Patient Identification Verified (Name & Yes ) Patient Requires Transmission-Based No Precautions Height and Weight Height 5 ft 9 in Weight 72.575 kg Weight in Pounds 160.0 lbs Body Mass Index (BMI) 23.6 BMI Classification Normal BSA - Brianna 1.88 Vital Signs Temperature (97.8 F-99.1 F) 98 F Temperature Source Temporal Pulse Rate (60-100) 80 Pulse Location Monitor Respiratory Rate (12-18) 18 Respiratory rate source Observation O2 L/MIN 3 Blood Pressure (90/60-120/80) 84/55 L Blood Pressure Mean 64 Source Monitor Position Semi-Fowlers Blood Pressure Location Left Arm History Since Last Visit- (Skip if this is Patient's initial visit) Have you changed medications since your No last visit? Any new allergies or adverse reactions No Had a fall/change in ADL's that may No increase risk of falls Signs or symptoms of abuse and/or No neglect since last visit Have you been in the hospital since your No last visit? Has dressing in place as prescribed Yes Has compression in place as prescribed No Has offloadiing in place as prescribed Yes Experienced any changes in pain level or No management Pain Scale: 0-10 Numeric Is Patient Pain Free? No Lfoot -Description Burning,Aching -Intensity 8 -Duration (hours) Acute -Pain Behavior Withdrawal from Touch -Pain Aggravating Factors Exercise/ Activity -Alleviating Factors/Interventions Medication -Effectiveness of Alleviating Factor/ Minimally Intervention effective Lower Extremity Assessment/ Foot Assessment/ Toe Nail Assessment Right -Posterior Tibial Palpable No -Dorsalis Pedis Palpable No -Extremity Color Pale -Hair Growth on Legs No -Hair Growth on Toes No -Temperature of Extremity Cool -Capillary Refill Less than 3 Seconds -Dependent Rubor No -Blanched when Elevated No -Lipodermatosclerosis No -Other Deformity No -Prior Foot Ulcer No -Charcot Joint No -Prior Amputation No -Thick Yes -Discolored Yes -Deformed Yes -Improper Length & Hygeine Yes Left -Posterior Tibial Palpable No -Dorsalis Pedis Palpable No -Extremity Color Pale -Hair Growth on Legs No -Hair Growth on Toes No -Temperature of Extremity Cool -Dependent Rubor No -Blanched when Elevated No -Lipodermatosclerosis No -Other Deformity No -Prior Foot Ulcer No -Charcot Joint No -Prior Amputation No -Thick Yes -Discolored Yes -Deformed Yes -Improper Length & Hygeine Yes Neuropathy Assessment Feet - Top Side and Bottom <Entered> (a) Communication Assessment Preferred language Polish Project Technician Required No Able to Read Yes Able to Write Yes Communication Tools None Caregiver Communication Skills No Impairment Impairment Right Hearing Abillity Normal Left Hearing Abillity Normal Visual Assistive Devices Glasses Teaching Assessment Preferences Verbal,Written, Demonstration Barriers to Learning None Readiness To Learn Good Willingness to Engage in Self Management Med Activies Readiness to Engage in Self Management Med Activities Anxiety Level Calm Cooperation Cooperative Perception Coherent Interest in Health Problem Asks Questions Education Importance Acknowledges Need Does Patient Smoke tobacco or other No substances Smoking Status Light Smoker (< 10/day) Is Patient Diabetic No Functional Assessment Recent Decline in Ability to Perform Denies Any Declines Assistive Device With Patient cane Culture/Samaritan/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 Operating Table Assembler to contact place of lutheran No Teaching: Wound Center *Welcome to the Wound Center -Person Taught Patient -Teaching Method Discussion -Response to teaching Verbalize understanding (a) 1 - + throughout WC - Nurse 1 - General Ulcer Measurement Start: 05/27/23 13:32 Freq: Status: Active Protocol: Activity Type Activity Date Activity User E-sign Co-sign Detail Recorded Client Recorded Date Recorded By Document 05/27/23 13:32 RB Desktop 05/27/23 13:38 RB 05/27/23 13:32 Wound Center Nurse 1 1. L Lateral foot -Combined with other wound No -Current Size (cm) - Length 3.8 -Current Size (cm) - Width 2 -Current Size (cm) - Depth 0.2 -Total Square Cm 7.6 -Photo Taken Yes -Tunneling No -Undermining/Tunneling No -Circular Undermining No -Exudate Amt Medium -Exudate Type Serosanguineous -Wound Margin Flat & Intact -Granulation Amt None Present (0 %) -Slough/Fibrin Yes -Necrosis Amt Large (67-100%) -Necrotic Tissue Type Adherent Slough -Structure Exposed N/A -Texture (Terri-wound Skin Appearance) Assessed -Moisture (Terri-wound Skin Appearance) Assessed -Color (Terri-wound Skin Appearance) Erythema -Temperature (Terri-wound Skin No Abnormality Appearance) (Pt Warm) -Tenderness on Palpation (Terri-wound No Skin Appearance) -Ulcer Cleansing Wound Cleanser -Foul Odor after Cleansing No -Anesthetic Used 4% Lidocaine Solution Lower Limb Edema Present Yes Right Calf (cm) 30 Right Ankle (cm) 20 Left Calf (cm) 29 Left Ankle (cm) 20.5 WC - Nurse 2 - General Ulcer CM Notes Start: 05/27/23 13:32 Freq: Status: Active Protocol: Activity Type Activity Date Activity User E-sign Co-sign Detail Recorded Client Recorded Date Recorded By Document 05/27/23 14:12 Laptop 05/27/23 14:13 05/27/23 14:12 Wound Center Nurse 2 1. L Lateral foot -Time 14:12 -Correct Patient Yes -Correct Side, Site, Position Yes -Correct Procedure Yes -Procedure Performed Yes -Type of Procedure Debridement -Clinical Debridement Bone -Post Debridement (cm) - Length 4.0 -Post Debridement (cm) - Width 2.0 -Post Debridement (cm) - Depth 0.4 -Total Square (Post) (cm) 8.00 -Area of Debridement (cm) - Length 4.0 -Area of Debridement (cm) - Width 2.0 -Total Square (Area) (cm) 8.00 -Tunneling No -Undermining/Tunneling No -Circular Undermining No -Wound/Ulcer Outcome Not Healed -Ulcer Cleansing Rinsed/ Irrigated with Saline -Foul Odor after Cleansing No -Bioengineered Tissue No -Bleeding Controlled with Pressure -Treatment Response Procedure Tolerated Well -Offloading Yes -Type of Offloading Surgical Shoe -Debridement - Bone, 1st 20sq cm Yes Pain Scale: 0-10 Numeric Is Patient Pain Free? Yes - Nurse 3 - General Ulcer D/C NN Start: 05/27/23 13:32 Freq: Status: Active Protocol: Activity Type Activity Date Activity User E-sign Co-sign Detail Recorded Client Recorded Date Recorded By Document 05/27/23 14:36 RB Desktop 05/27/23 14:37 RB 05/27/23 14:36 Wound Care Center Nurse 3 1. L Lateral foot -Ulcer Cleansing Rinsed/ Irrigated with Saline -Other Dressing betadine gauze -Primary Dressing Covered/Secured with Dry Gauze,Dry Gauze & Roll Gauze,Secured with Tape Treatment Response Procedure Tolerated Well Pain Scale: 0-10 Numeric Is Patient Pain Free? Yes Teaching: Wound Center Dressing Your Wound -Person Taught Patient,Family -Teaching Method Discussion, Demonstration -Response to teaching Verbalize understanding WC - Visit Discharge Discharge Condition Stable Ambulatory Status Wheelchair Transportation Private Auto Medication Reconcilliation completed & No provided to patient/care provider Clinical Summary of Care Provided Yes Assessment/Plan Assessment/Plan (1) Non-pressure chronic ulcer of other part of left foot with necrosis of bone: CODE(S): L97.524 - Non-pressure chronic ulcer of other part of left foot with necrosis of bone PLAN: Patient was examined and evaluated. All findings were discussed with the patient. All questions were answered to the patient's satisfaction. Excisional debridement down to and including subcutaneous tissue, fascia, muscle and bone with a 15 blade and pickup without incident. Predebridement measurement is 3.9 x 1.8 x 0.2 cm. Postdebridement measurement is 4.0 x 2.0 x 0.4 cm. Left lower extremities were cleaned and patted dry. The full-thickness ulceration was dressed with Betadine soaked gauze, and dry sterile dressing. No compression was applied. Wound care instructions were given to the patient's so that they may do daily dressing changes and she was understandable of what was needed. Supplies will be ordered. The full-thickness ulceration was cultured however the patient will continue his doxycycline and we will adjust antibiotics when cultures return. Blood work was also submitted for the patient to have a CBC, basic metabolic panel, ESR and CRP, and A1c. Order was given for left foot radiographs. Order was given for vascular studies arterial and venous. At this time and after physical examination there is concern for osteomyelitis to the base of the fifth metatarsal. After workup with arterial and venous studies as well as radiographs we will begin authorizing an OR visit for washout and incision of bone cortex of the fifth metatarsal base left foot. It was also educated to the patient that there is concern that he may lose his fifth metatarsal if there is concerns for osteomyelitis. The patient was understanding of everything that was explained to him. Follow-up at the wound care center with Dr. Guaman in 1 week. (2) Other specified peripheral vascular diseases: CODE(S): I73.89 - Other specified peripheral vascular diseases (3) Acute osteomyelitis of left foot: CODE(S): M86.172 - Other acute osteomyelitis, left ankle and foot
--- NOTE | 2023-05-27 15:47 | RAD_ITS ---
STUDY: X-RAY - LEFT FOOT CLINICAL: Male, 73 years old. ULCER TECHNIQUE: 3 view(s) of the foot. COMPARISON: None. FINDINGS: Normal talus, calcaneus, and tarsal bones. Normal visualized subtalar, talonavicular, calcaneocuboid, tarsal and tarsometatarsal articulations. Normal metatarsi. Normal metatarsophalangeal joint of the great toe. Normal tibial and fibular sesamoid bones. Normal interphalangeal joint of the great toe. Normal phalanges of the great toe. Normal second through fifth metatarsophalangeal joints. Normal interphalangeal joints and phalanges of the lesser toes. Defect of soft tissues lateral to the base of the fifth metatarsal bone worrisome for an ulcer. Subtle irregularity of the lateral cortex of the base of the fifth metatarsal bone worrisome for early osteomyelitis. MRI may be useful. RAD/Foot min 3 Views IMPRESSION: Suspect ulcer lateral to the base of the fifth metatarsal bone with early osteomyelitis. MRI would be useful. Electronically Signed: Dio Hinkle MD at 22:20 EDT ,
[2023-05-27 16:18] LABS: Absolute Lymphocyte Count 1.27 X10^3/uL (0.83-4.51); Basophil# 0.03 X10^3/uL; Basophil% 0.2 % (0-1); Eosinophil# 0.08 X10^3/uL; Eosinophils% 0.6 % (0-5); Hematocrit 38.1 % (40-54); Lymphocyte # 1.27 X10^3/ul (0.83-4.51); Mean Corp Hgb Conc 31.5 g/dL (32-36); Mean Corpuscular Hgb 30.3 pg (27.0-32.0); Mean Corpuscular Volume 96.2 fL (80-94); Mean Platelet Vol. 9.9 fl (6.2-12.0); Monocyte% 2.8 % (0-10); NRBC Flagged by Analyzer 0 % (0-5); Neutrophil # 12.04 X10^3/uL (2.7-7.7); Neutrophil % 85.2 % (47-70); Platelet Count 532 K/mm3 (150-450); RBC Distribution Width CV 14.8 % (11.6-14.6); RBC Distribution Width SD 52.8 fl (35.1-43.9); Red Blood Count 3.96 M/mm3 (4.6-6.2); White Blood Count 14.1 K/mm3 (4.4-11.0)
[2023-05-27 16:46] LABS: Erythrocyte Sedimentation Rate 37 mm/hr (0-20)
[2023-05-27 17:07] LABS: Anion Gap 5 (5-15); BUN 53 mg/dL (7-18); BUN/Creat Ratio 20.7 RATIO (10-20); Calcium,Total 9.5 mg/dL (8.5-10.1); Chloride 104 mmol/L (98-107); Creatinine, Serum 2.56 mg/dL (0.70-1.30); EST Glomerular Filtration Rate 26 mL/min (>60); Est Glom Filt Rate - Afr Amer 32 mL/min (>60); Estimated Creatinine Clearance 26.47 ml/min; Glucose 86 mg/dL (74-106); Potassium 4.9 mmol/L (3.5-5.1); Sodium Level 136 mmol/L (136-145)
--- NOTE | 2023-05-29 12:25 | WC ---
4.10.24 LT LAT FT INITIAL
[2023-06-03 14:17] VITALS: BP 96/50; PULSE 77; RESP 20; TEMP 36.8; BMI 23.6
--- NOTE | 2023-06-03 15:10 | PCM.WC.PN ---
History of Present Illness Date of Service: 06/03/23 Chief Complaint: Left foot wound History of Wound: Left foot wound secondary to surgery from outside provider Progress of Wound: Mr. Oliva is a 73-year-old male who is presenting to wound care center today for follow-up and evaluation for full-thickness ulceration secondary to an office procedure by an outside provider. Patient states that he had a bone resected in the office of an outside provider and unfortunately the wound opened up and has been dealing with a full-thickness wound for the past 1 to 2 weeks. Patient has been on oral antibiotics, doxycycline with mild improvement to the full-thickness wound. Patient does admit to smoking anywhere between 1 and 4 packs/day, but per the patient he states that he smokes 1 pack of cigarettes every 2 days. 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 Patient denies any trauma to the left foot. He denies constitutional symptoms. No other pedal complaints at this time. Subjective Subjective Mr. Oliva is a 73-year-old diabetic male presenting to clinic today for follow-up evaluation of full-thickness ulceration secondary to an in office procedure by an outside provider. Patient was called in ciprofloxacin 750 mg twice daily for 2 weeks. He admits that his pain is improved and redness has improved to the left foot. Patient did receive his plain film radiographs at [facility] with concerns of osteomyelitis. Patient cannot have a MRI secondary to stenting in his heart and we will begin authorization for three-phase bone scan to the left foot. Patient did receive his dressing supplies. He is grateful for his care. He denies trauma. Denies constitutional symptoms. No other pedal complaints at this time. Objective Data Objective Data Vital Signs: Vital Signs Temp Pulse Resp BP O2 Flow Rate 98.3 F 77 20 H 96/50 L 3 06/03/23 14:17 06/03/23 14:17 06/03/23 14:17 06/03/23 14:17 05/27/23 13:32 Oxygen Flow Rate (L/min) 3 Weight: 72.575 kg Body Mass Index (BMI) 23.6 Lab / Micro Data 05/27/23 15:21 05/27/23 15:21 Micro: Microbiology 05/28/23 14:06 Wound - Left Foot Gram Stain - Final 05/28/23 14:06 Wound - Left Foot Wound Culture - Final Enterococcus faecalis Staphylococcus aureus 05/28/23 14:06 Wound - Left Foot Anaerobic Culture - Final No anaerobic bacteria isolated. Physical Exam Narrative Vascular: PT, peroneal arteries are biphasic on Doppler. AT and DP are monophasic on Doppler. CFT is 4 seconds. Nonpitting edema appreciated to the left lower extremity. Skin temperature gradient is warm to cool from proximal ankle to distal digits bilateral. Neurological: Light touch intact. Protective sensation is intact. Patient response to painful stimuli. Dermatological: Full-thickness ulceration to the lateral aspect of the left foot with bone exposed. Ulceration measures 3.6 x 2.0 x 0.2 cm. Positive probe to bone, with bone exposed. Wound base is fibrotic in nature with mild malodor. Periwound erythema which is blanchable, improving. No active drainage at this time. No purulent drainage appreciated. Evidence diffuse xerosis appreciated bilateral lower extremity. Musculoskeletal: Moderate to severe palpatory tenderness appreciated the full-thickness ulceration of the left foot. No pain with calf compression. Debridement Note Debridement Note Post-Debridement Measurements and Additional Note: Post-Debridement Measurements/Treatment - Nurse 1 - General Ulcer Assessment Start: 05/27/23 13:32 Freq: Status: Active Protocol: HENRIEXMari Activity Type Activity Date Activity User E-sign Co-sign Detail Recorded Client Recorded Date Recorded By Document 05/27/23 13:32 RB Desktop 05/27/23 13:38 RB Document 06/03/23 14:17 DL Desktop 06/03/23 14:26 DL 05/27/23 06/03/23 13:32 14:17 - Today's Visit Information Type of service Follow-up Visit Follow-up Visit (Physician/CRITICAL POWER INSTALL TECHNICIAN (Physician/CRITICAL POWER INSTALL TECHNICIAN ) ) Arrival Mode Cane,Wheelchair Wheelchair Transfer Assistance None Manual Transfer Assist (Other) x1 Patient Identification Verified (Name & Yes Yes ) Patient Requires Transmission-Based No No Precautions Height and Weight Height 5 ft 9 in Weight 72.575 kg Weight in Pounds 160.0 lbs Body Mass Index (BMI) 23.6 23.6 BMI Classification Normal Normal BSA - Brianna 1.88 Vital Signs Temperature (97.8 F-99.1 F) 98 F 98.3 F Temperature Source Temporal Temporal Pulse Rate (60-100) 80 77 Pulse Location Monitor Monitor Respiratory Rate (12-18) 18 20 H Respiratory rate source Observation Observation O2 L/MIN (L/min) 3 Blood Pressure (90/60-120/80) 84/55 L 96/50 L Blood Pressure Mean (mm Hg) 64 65 Source Monitor Monitor Position Semi-Fowlers Blood Pressure Location Left Arm History Since Last Visit- (Skip if this is Patient's initial visit) Have you changed medications since your No No last visit? Any new allergies or adverse reactions No No Had a fall/change in ADL's that may No No increase risk of falls Signs or symptoms of abuse and/or No No neglect since last visit Have you been in the hospital since your No No last visit? Has dressing in place as prescribed Yes Yes Has compression in place as prescribed No N/A Has offloadiing in place as prescribed Yes Yes Experienced any changes in pain level or No No management Left Footwear Surgical Shoe with pressure relief insole Pain Scale: 0-10 Numeric Is Patient Pain Free? No Yes Lfoot -Description Burning,Aching -Intensity 8 -Duration (hours) Acute -Pain Behavior Withdrawal from Touch -Pain Aggravating Factors Exercise/ Activity -Alleviating Factors/Interventions Medication -Effectiveness of Alleviating Factor/ Minimally Intervention effective Lower Extremity Assessment/ Foot Assessment/ Toe Nail Assessment Right -Posterior Tibial Palpable No -Dorsalis Pedis Palpable No -Extremity Color Pale -Hair Growth on Legs No -Hair Growth on Toes No -Temperature of Extremity Cool -Capillary Refill Less than 3 Seconds -Dependent Rubor No -Blanched when Elevated No -Lipodermatosclerosis No -Other Deformity No -Prior Foot Ulcer No -Charcot Joint No -Prior Amputation No -Thick Yes -Discolored Yes -Deformed Yes -Improper Length & Hygeine Yes Left -Posterior Tibial Palpable No -Dorsalis Pedis Palpable No -Extremity Color Pale -Hair Growth on Legs No -Hair Growth on Toes No -Temperature of Extremity Cool -Dependent Rubor No -Blanched when Elevated No -Lipodermatosclerosis No -Other Deformity No -Prior Foot Ulcer No -Charcot Joint No -Prior Amputation No -Thick Yes -Discolored Yes -Deformed Yes -Improper Length & Hygeine Yes Neuropathy Assessment Feet - Top Side and Bottom <Entered> (a) Communication Assessment Preferred language Fijian Fixer Boarding Room Required No Able to Read Yes Able to Write Yes Communication Tools None Caregiver Communication Skills No Impairment Impairment Right Hearing Abillity Normal Left Hearing Abillity Normal Visual Assistive Devices Glasses Teaching Assessment Preferences Verbal,Written, Demonstration Barriers to Learning None Readiness To Learn Good Willingness to Engage in Self Management Med Activies Readiness to Engage in Self Management Med Activities Anxiety Level Calm Cooperation Cooperative Perception Coherent Interest in Health Problem Asks Questions Education Importance Acknowledges Need Does Patient Smoke tobacco or other No substances Smoking Status Light Smoker (< 10/day) Is Patient Diabetic No Functional Assessment Recent Decline in Ability to Perform Denies Any Declines Assistive Device With Patient cane Culture/Congregation/Molder Hand Cultural/Congregation Needs that may affect No Treatment Plan Would you allow our hospital special events driver to No meet you for the purpose of spiritual/ emotional support? Molder Hand to contact place of religious No Teaching: Wound Center *Welcome to the Wound Center -Person Taught Patient -Teaching Method Discussion -Response to teaching Verbalize understanding (a) 1 - + throughout WC - Nurse 1 - General Ulcer Measurement Start: 05/27/23 13:32 Freq: Status: Active Protocol: Activity Type Activity Date Activity User E-sign Co-sign Detail Recorded Client Recorded Date Recorded By Document 05/27/23 13:32 RB Desktop 05/27/23 13:38 RB Document 06/03/23 14:17 DL Desktop 06/03/23 14:26 DL 05/27/23 06/03/23 13:32 14:17 Wound Center Nurse 1 1. L Lateral foot -Combined with other wound No -Current Size (cm) - Length 3.8 2 -Current Size (cm) - Width 2 3.6 -Current Size (cm) - Depth 0.2 0.2 -Total Square Cm 7.6 7.2 -Photo Taken Yes -Tunneling No -Undermining/Tunneling No -Circular Undermining No -Exudate Amt Medium Medium -Exudate Type Serosanguineous Serosanguineous -Wound Margin Flat & Intact Distinct, Outline Attached -Granulation Amt None Present (0 Small (1-33%) %) -Granulation Quality Ball Ground -Slough/Fibrin Yes -Necrosis Amt Large (67-100%) Large (67-100%) -Necrotic Tissue Type Adherent Slough Adherent Slough -Structure Exposed N/A N/A -Texture (Terri-wound Skin Appearance) Assessed Scarring -Moisture (Terri-wound Skin Appearance) Assessed Dry/Scaly -Color (Terri-wound Skin Appearance) Erythema No Abnormality -Temperature (Terri-wound Skin No Abnormality No Abnormality Appearance) (Pt Warm) (Pt Warm) -Tenderness on Palpation (Terri-wound No No Skin Appearance) -Ulcer Cleansing Wound Cleanser Soap and Water -Foul Odor after Cleansing No No -Anesthetic Used 4% Lidocaine 5% Lidocaine Solution Gel Lower Limb Edema Present Yes Right Calf (cm) 30 Right Ankle (cm) 20 Left Calf (cm) 29 Left Ankle (cm) 20.5 - Nurse 2 - General Ulcer CM Notes Start: 05/27/23 13:32 Freq: Status: Active Protocol: Activity Type Activity Date Activity User E-sign Co-sign Detail Recorded Client Recorded Date Recorded By Document 05/27/23 14:12 [employer] Laptop 05/27/23 14:13 Document 06/03/23 14:36 Laptop 06/03/23 14:37 05/27/23 06/03/23 14:12 14:36 Wound Center Nurse 2 1. L Lateral foot -Time 14:12 -Correct Patient Yes No -Correct Side, Site, Position Yes No -Correct Procedure Yes No -Procedure Performed Yes No -Type of Procedure Debridement -Clinical Debridement Bone -Post Debridement (cm) - Length 4.0 -Post Debridement (cm) - Width 2.0 -Post Debridement (cm) - Depth 0.4 -Total Square (Post) (cm) 8.00 -Area of Debridement (cm) - Length 4.0 -Area of Debridement (cm) - Width 2.0 -Total Square (Area) (cm) 8.00 -Tunneling No -Undermining/Tunneling No -Circular Undermining No -Wound/Ulcer Outcome Not Healed Not Healed -Ulcer Cleansing Rinsed/ Irrigated with Saline -Foul Odor after Cleansing No -Bioengineered Tissue No -Bleeding Controlled with Pressure NA -Treatment Response Procedure Tolerated Well -Offloading Yes -Type of Offloading Surgical Shoe -Debridement - Subq, 1st 20sq cm No -Debridement - Bone, 1st 20sq cm Yes Pain Scale: 0-10 Numeric Is Patient Pain Free? Yes Yes - Nurse 3 - General Ulcer D/C NN Start: 05/27/23 13:32 Freq: Status: Active Protocol: Activity Type Activity Date Activity User E-sign Co-sign Detail Recorded Client Recorded Date Recorded By Document 05/27/23 14:36 RB Desktop 05/27/23 14:37 RB Document 06/03/23 14:54 BM Desktop 06/03/23 14:56 BMF 05/27/23 06/03/23 14:36 14:54 Wound Care Center Nurse 3 1. L Lateral foot -Ulcer Cleansing Rinsed/ Rinsed/ Irrigated with Irrigated with Saline Saline -Foul Odor after Cleansing No -Other Dressing betadine gauze betadine moist gauze; per CP RN -Primary Dressing Covered/Secured with Dry Gauze,Dry Dry Gauze & Gauze & Roll Roll Gauze, Gauze,Secured Secured with with Tape Tape Treatment Response Procedure Procedure Tolerated Well Tolerated Well Pain Scale: 0-10 Numeric Is Patient Pain Free? Yes Yes Teaching: Wound Center Dressing Your Wound -Person Taught Patient,Family -Teaching Method Discussion, Demonstration -Response to teaching Verbalize understanding WC - Visit Discharge Discharge Condition Stable Stable Ambulatory Status Wheelchair Wheelchair Transportation Private Auto Medication Reconcilliation completed & No provided to patient/care provider Clinical Summary of Care Provided Yes Assessment/Plan Assessment/Plan (1) Non-pressure chronic ulcer of other part of left foot with necrosis of bone: CODE(S): L97.524 - Non-pressure chronic ulcer of other part of left foot with necrosis of bone PLAN: Patient was examined and evaluated. All findings were discussed with the patient. All questions were answered to the patient's satisfaction. Evaluation of the patient's full-thickness wound is stable with evidence of necrotic tissue to the base. We will continue Betadine soaked gauze dry sterile dressing without compression to left lower extremity. Patient will continue his oral antibiotic as written as it is improving his infection. At this time we will begin authorization for a three-phase bone scan to the left lower extremity/foot as the patient cannot undergo MRI secondary to metallic implants throughout his body. It was also educated the patient that if there is concern for bone infection will take the patient to the operating room and perform excision of bone cortex and remove all the infected bone and soft tissue that shows to be nonviable to the left foot he was understanding this as well as all risk and benefits. Patient will continue home dressing supplies as instructed Patient will have his vascular studies on 06/08/2023 at [facility]. Follow-up at the wound care center with Dr. Guaman in 1 week. (2) Acute osteomyelitis of left foot: CODE(S): M86.172 - Other acute osteomyelitis, left ankle and foot (3) Other specified peripheral vascular diseases: CODE(S): I73.89 - Other specified peripheral vascular diseases
--- NOTE | 2023-06-08 14:11 | ART_ITS ---
Reason For Study: PVD, foot ulcer Procedure A bilateral lower extremity continuous wave Doppler with analog waveform analysis,segmental pressures,and ankle brachial indexes without exercise. Unable to obtain great toe PPG's bilat. Left Segmental Pressures Left brachial= 89mmHg. Left posterior tibial artery = 112mmHg. Left dorsalis pedis artery = 123mmHg. The left dorsalis pedis waveforms are triphasic. The left posterior tibial artery waveforms are triphasic. Right Segmental Pressures Right brachial= 90mmHg. Right thigh = 122mmHg. Right calf = 83mmHg. Right posterior tibial artery = 85mmHg. Right dorsalis pedis artery = 83mmHg. The right dorsalis pedis waveforms are biphasic. The right posterior tibial artery waveforms are biphasic. Indices The right ankle brachial index by the dorsalis pedis is .92. The right ankle brachial index by the posterior tibial artery post exercise is .94. The left ankle brachial index by the dorsalis pedis is 1.37. The left ankle brachial index by the posterior tibial artery is 1.24. VL/Lower Ext Art Exam w/o Exercis Interpretation Summary Biphasic Doppler waveforms are noted at ankle level on the right. Triphasic Dop pler waveforms are noted at ankle level on the left. Pulse-volume recordings are absent at digital level bilaterally, but satisfactory at low thigh, calf, and ankle levels bilaterally. Resting ankl e-brachial indices are normal or acceptable bilaterally. Digital pressures were not obtained. Arterial flow appears normal at ankle level bilaterally. There is suggestion th at there is significant diminution of arterial flow at digital level bilaterally, though no t assessed by means of digital-brachial indices. Ordering Physician: Inderjit Guaman Referring Physician: INDERJIT GUAMAN DPM Performed By: Esau Daniel RVT
--- NOTE | 2023-06-08 14:11 | VDLE_ITS ---
Reason For Study: foot ulcer, edema RIGHT LEFT CFV is compressible, spontaneous, phasic, CFV is compressible, spontaneous, phasic, competent and demonstrates normal competent, and demonstrates normal augmentation. augmentation. FV is compressible, spontaneous, phasic, FV is compressible, spontaneous, phasic, competent and demonstrates normal competent and demonstrates normal augmentation. augmentation. POP V is compressible, spontaneous, phasic, POP V is compressible, spontaneous, phasic, competent and demonstrates normal competent and demonstrates normal augmentation. augmentation. T/P Trunk is compressible. T/P Trunk is compressible. PTV is compressible. PTV is compressible. RT PerV is compressible. LT PerV is compressible. SFJ is competent and measures .41 cm. SFJ is competent and measures .44 cm. GSV proximal thigh measures .34 x .36 cm. GSV proximal thigh measures .29 x .32 cm. GSV at knee measures .3 x .33 cm. GSV at knee measures .37 x .41 cm. GSV is competent throughout. GSV is competent throughout. SSV proximal calf is competent and SSV proximal calf is competent and measures .12 x .16 cm. measures .2 x .22 cm. Procedure This is a venous duplex using B-mode, color flow and spectral Doppler. Exam performed in department. The exam was diagnostic. VL/Venous Duplex US - Santino Extrem Interpretation Summary Deep veins of the lower extremities are bilaterally patent and compressible seg mentally. There is no evidence of deep vein thrombosis on either side. Valvular competence appears in tact within the proximal deep venous systems bilaterally. The great saphenous veins appear bila terally patent and compressible segmentally. Sapheno-femoral junctions are bilaterally competent . Valvular competence appears to be intact segmentally within the great saphenous veins bilaterally. Small saphenous veins are patent and competent bilaterally. Ordering Physician: Parveen Guaman Referring Physician: Yo Clement Performed By: Esau Daniel RVT
--- NOTE | 2023-06-10 16:36 | PN.PCM_ITS ---
History of Present Illness Date of Service: 06/10/23 Chief Complaint: Left foot wound History of Wound: Left foot wound secondary to surgery from outside provider Progress of Wound: Mr. Oliva is a 73-year-old male who is presenting to wound care center today for follow-up and evaluation for full-thickness ulceration secondary to an office procedure by an outside provider. Patient states that he had a bone resected in the office of an outside provider and unfortunately the wound opened up and has been dealing with a full-thickness wound for the past 1 to 2 weeks. Patient has been on oral antibiotics, doxycycline with mild improvement to the full-thickness wound. Patient does admit to smoking anywhere between 1 and 4 packs/day, but per the patient he states that he smokes 1 pack of cigarettes every 2 days. 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 Patient denies any trauma to the left foot. He denies constitutional symptoms. No other pedal complaints at this time. Subjective Subjective Mr. Oliva is a 73-year-old diabetic male presenting to wound care center today for follow-up evaluation of full-thickness ulceration to left lower extremity. He has been taking his antibiotic without problems. He expresses great improvement to redness and pain to his left foot. He continues to switch back and forth between the cam boot and surgical shoe for relief. Patient rates his pain at worst a 7 out of 10 on the pain scale which she controls with oral pain medication. Patient has been compliant with dressing changes. Patient has not scheduled his three-phase bone scan yet. He understands that he will need to go through surgery if he does have bone infection. Denies trauma. Denies constitutional symptoms. No other pedal complaints at this time. Objective Data Objective Data Vital Signs: Vital Signs Temp Pulse Resp BP O2 Flow Rate 98.3 F 77 20 H 96/50 L 3 06/03/23 14:17 06/03/23 14:17 06/03/23 14:17 06/03/23 14:17 05/27/23 13:32 Oxygen Flow Rate (L/min) 3 Weight: 72.575 kg Body Mass Index (BMI) 23.6 Lab / Micro Data 05/27/23 15:21 04/10/24 15:21 Micro: Microbiology 05/28/23 14:06 Wound - Left Foot Gram Stain - Final 05/28/23 14:06 Wound - Left Foot Wound Culture - Final Enterococcus faecalis Staphylococcus aureus 05/28/23 14:06 Wound - Left Foot Anaerobic Culture - Final No anaerobic bacteria isolated. Physical Exam Narrative Vascular: PT, peroneal arteries are biphasic on Doppler. AT and DP are monophasic on Doppler. CFT is 4 seconds. Nonpitting edema appreciated to the left lower extremity. Skin temperature gradient is warm to cool from proximal ankle to distal digits bilateral. Neurological: Light touch intact. Protective sensation is intact. Patient response to painful stimuli. Dermatological: Full-thickness ulceration to the lateral aspect of the left foot with bone exposed. Ulceration measures 3.5 x 2.0 x 0.3 cm. Positive probe to bone, with bone exposed. Wound base is fibrotic in nature with mild malodor. Periwound erythema which is blanchable, improving. No active drainage at this time. No purulent drainage appreciated. Evidence diffuse xerosis appreciated bilateral lower extremity. Excisional debridement down to and including subcutaneous tissue, fascia, muscle and bone to the lateral left foot with a #15 blade and pickups without incident. Predebridement measurement is 3.4 x 1.9 x 0.2 cm. measurement is 3.5 x 2.0 x 0.3 cm. Musculoskeletal: Moderate to severe palpatory tenderness appreciated the full-thickness ulceration of the left foot. No pain with calf compression. Debridement Note Debridement Note Debridement Free Text: Excisional debridement down to and including subcutaneous tissue, fascia, muscle and bone to the lateral left foot with a #15 blade and pickups without incident. Predebridement measurement is 3.4 x 1.9 x 0.2 cm. measurement is 3.5 x 2.0 x 0.3 cm. Post-Debridement Measurements and Additional Note: Post-Debridement Measurements/Treatment WC - Nurse 1 - General Ulcer Assessment Start: 05/27/23 13:32 Freq: Status: Active Protocol: BRUCE.LOWEXT Activity Type Activity Date Activity User E-sign Co-sign Detail Recorded Client Recorded Date Recorded By Document 05/27/23 13:32 RB Desktop 05/27/23 13:38 RB Document 06/03/23 14:17 DL Desktop 06/03/23 14:26 DL 05/27/23 06/03/23 13:32 14:17 WC - Today's Visit Information Type of service Follow-up Visit Follow-up Visit (Physician/ACCOUNT SERVICES MANAGER (Physician/ACCOUNT SERVICES MANAGER ) ) Arrival Mode Cane,Wheelchair Wheelchair Transfer Assistance None Manual Transfer Assist (Other) x1 Patient Identification Verified (Name & Yes Yes ) Patient Requires Transmission-Based No No Precautions Height and Weight Height 5 ft 9 in Weight 72.575 kg Weight in Pounds 160.0 lbs Body Mass Index (BMI) 23.6 23.6 BMI Classification Normal Normal BSA - Brianna 1.88 Vital Signs Temperature (97.8 F-99.1 F) 98 F 98.3 F Temperature Source Temporal Temporal Pulse Rate (60-100) 80 77 Pulse Location Monitor Monitor Respiratory Rate (12-18) 18 20 H Respiratory rate source Observation Observation O2 L/MIN (L/min) 3 Blood Pressure (90/60-120/80) 84/55 L 96/50 L Blood Pressure Mean (mm Hg) 64 65 Source Monitor Monitor Position Semi-Fowlers Blood Pressure Location Left Arm History Since Last Visit- (Skip if this is Patient's initial visit) Have you changed medications since your No No last visit? Any new allergies or adverse reactions No No Had a fall/change in ADL's that may No No increase risk of falls Signs or symptoms of abuse and/or No No neglect since last visit Have you been in the hospital since your No No last visit? Has dressing in place as prescribed Yes Yes Has compression in place as prescribed No N/A Has offloadiing in place as prescribed Yes Yes Experienced any changes in pain level or No No management Left Footwear Surgical Shoe with pressure relief insole Pain Scale: 0-10 Numeric Is Patient Pain Free? No Yes Lfoot -Description Burning,Aching -Intensity 8 -Duration (hours) Acute -Pain Behavior Withdrawal from Touch -Pain Aggravating Factors Exercise/ Activity -Alleviating Factors/Interventions Medication -Effectiveness of Alleviating Factor/ Minimally Intervention effective Lower Extremity Assessment/ Foot Assessment/ Toe Nail Assessment Right -Posterior Tibial Palpable No -Dorsalis Pedis Palpable No -Extremity Color Pale -Hair Growth on Legs No -Hair Growth on Toes No -Temperature of Extremity Cool -Capillary Refill Less than 3 Seconds -Dependent Rubor No -Blanched when Elevated No -Lipodermatosclerosis No -Other Deformity No -Prior Foot Ulcer No -Charcot Joint No -Prior Amputation No -Thick Yes -Discolored Yes -Deformed Yes -Improper Length & Hygeine Yes Left -Posterior Tibial Palpable No -Dorsalis Pedis Palpable No -Extremity Color Pale -Hair Growth on Legs No -Hair Growth on Toes No -Temperature of Extremity Cool -Dependent Rubor No -Blanched when Elevated No -Lipodermatosclerosis No -Other Deformity No -Prior Foot Ulcer No -Charcot Joint No -Prior Amputation No -Thick Yes -Discolored Yes -Deformed Yes -Improper Length & Hygeine Yes Neuropathy Assessment Feet - Top Side and Bottom <Entered> (a) Communication Assessment Preferred language Haitian Director Of Instrumental Music Required No Able to Read Yes Able to Write Yes Communication Tools None Caregiver Communication Skills No Impairment Impairment Right Hearing Abillity Normal Left Hearing Abillity Normal Visual Assistive Devices Glasses Teaching Assessment Preferences Verbal,Written, Demonstration Barriers to Learning None Readiness To Learn Good Willingness to Engage in Self Management Med Activies Readiness to Engage in Self Management Med Activities Anxiety Level Calm Cooperation Cooperative Perception Coherent Interest in Health Problem Asks Questions Education Importance Acknowledges Need Does Patient Smoke tobacco or other No substances Smoking Status Light Smoker (< 10/day) Is Patient Diabetic No Functional Assessment Recent Decline in Ability to Perform Denies Any Declines Assistive Device With Patient cane Culture/Sikhism/Station Engineer Cultural/Sikhism Needs that may affect No Treatment Plan Would you allow our hospital rabbler to No meet you for the purpose of spiritual/ emotional support? Station Engineer to contact place of amish No Teaching: Wound Center *Welcome to the Wound Center -Person Taught Patient -Teaching Method Discussion -Response to teaching Verbalize understanding (a) 1 - + throughout WC - Nurse 1 - General Ulcer Measurement Start: 05/27/23 13:32 Freq: Status: Active Protocol: Activity Type Activity Date Activity User E-sign Co-sign Detail Recorded Client Recorded Date Recorded By Document 05/27/23 13:32 RB Desktop 05/27/23 13:38 RB Document 06/03/23 14:17 DL Desktop 06/03/23 14:26 DL 05/27/23 06/03/23 13:32 14:17 Wound Center Nurse 1 1. L Lateral foot -Combined with other wound No -Current Size (cm) - Length 3.8 2 -Current Size (cm) - Width 2 3.6 -Current Size (cm) - Depth 0.2 0.2 -Total Square Cm 7.6 7.2 -Photo Taken Yes -Tunneling No -Undermining/Tunneling No -Circular Undermining No -Exudate Amt Medium Medium -Exudate Type Serosanguineous Serosanguineous -Wound Margin Flat & Intact Distinct, Outline Attached -Granulation Amt None Present (0 Small (1-33%) %) -Granulation Quality [place] -Slough/Fibrin Yes -Necrosis Amt Large (67-100%) Large (67-100%) -Necrotic Tissue Type Adherent Slough Adherent Slough -Structure Exposed N/A N/A -Texture (Terri-wound Skin Appearance) Assessed Scarring -Moisture (Terri-wound Skin Appearance) Assessed Dry/Scaly -Color (Terri-wound Skin Appearance) Erythema No Abnormality -Temperature (Terri-wound Skin No Abnormality No Abnormality Appearance) (Pt Warm) (Pt Warm) -Tenderness on Palpation (Terri-wound No No Skin Appearance) -Ulcer Cleansing Wound Cleanser Soap and Water -Foul Odor after Cleansing No No -Anesthetic Used 4% Lidocaine 5% Lidocaine Solution Gel Lower Limb Edema Present Yes Right Calf (cm) 30 Right Ankle (cm) 20 Left Calf (cm) 29 Left Ankle (cm) 20.5 WC - Nurse 2 - General Ulcer CM Notes Start: 05/27/23 13:32 Freq: Status: Active Protocol: Activity Type Activity Date Activity User E-sign Co-sign Detail Recorded Client Recorded Date Recorded By Document 05/27/23 14:12 OONitop 05/27/23 14:13 Document 06/03/23 14:36 Basic-Fittop 06/03/23 14:37 Document 06/10/23 14:51 Basic-Fittop 06/10/23 15:00 05/27/23 06/03/23 06/10/23 14:12 14:36 14:51 Wound Center Nurse 2 1. L Lateral foot -Time 14:12 14:52 -Correct Patient Yes No Yes -Correct Side, Site, Position Yes No Yes -Correct Procedure Yes No Yes -Procedure Performed Yes No Yes -Type of Procedure Debridement Debridement -Clinical Debridement Bone Bone -Tissue Removed Tendon,Non- viable tissue -Post Debridement (cm) - Length 4.0 3.5 -Post Debridement (cm) - Width 2.0 2.0 -Post Debridement (cm) - Depth 0.4 0.3 -Total Square (Post) (cm) 8.00 7.00 -Area of Debridement (cm) - Length 4.0 3.5 -Area of Debridement (cm) - Width 2.0 2.0 -Total Square (Area) (cm) 8.00 7.00 -Tunneling No No -Undermining/Tunneling No No -Circular Undermining No No -Wound/Ulcer Outcome Not Healed Not Healed Not Healed -Ulcer Cleansing Rinsed/ Rinsed/ Irrigated with Irrigated with Saline Saline -Foul Odor after Cleansing No No -Bioengineered Tissue No No -Bleeding Controlled with Pressure NA Pressure -Treatment Response Procedure Procedure Tolerated Well Tolerated Well -Offloading Yes Yes -Type of Offloading Surgical Shoe Surgical Shoe -Debridement - Subq, 1st 20sq cm No -Debridement - Muscle / Fascia, 1st No 20sq cm -Debridement - Bone, 1st 20sq cm Yes Yes Pain Scale: 0-10 Numeric Is Patient Pain Free? Yes Yes Yes - Nurse 3 - General Ulcer D/C NN Start: 05/27/23 13:32 Freq: Status: Active Protocol: Activity Type Activity Date Activity User E-sign Co-sign Detail Recorded Client Recorded Date Recorded By Document 05/27/23 14:36 Desktop 05/27/23 14:37 Document 06/03/23 14:[address] [facility] Desktop 06/03/23 14:[address] [facility] Document 06/10/23 15:08 Desktop 06/10/23 15:09 05/27/23 06/03/23 06/10/23 14:36 14:54 15:08 Wound Care Center Nurse 3 1. L Lateral foot -Ulcer Cleansing Rinsed/ Rinsed/ Irrigated with Irrigated with Saline Saline -Foul Odor after Cleansing No -Other Dressing betadine gauze betadine moist BETADINE gauze; per CP RN -Primary Dressing Covered/Secured with Dry Gauze,Dry Dry Gauze & Dry Gauze & Gauze & Roll Roll Gauze, Roll Gauze, Gauze,Secured Secured with Secured with with Tape Tape Tape Treatment Response Procedure Procedure Tolerated Well Tolerated Well Pain Scale: 0-10 Numeric Is Patient Pain Free? Yes Yes Yes Teaching: Wound Center Dressing Your Wound -Person Taught Patient,Family -Teaching Method Discussion, Demonstration -Response to teaching Verbalize understanding WC - Visit Discharge Discharge Condition Stable Stable Stable Ambulatory Status Wheelchair Wheelchair Ambulatory,Cane Transportation Private Auto Private Auto Accompanied by Medication Reconcilliation completed & No No provided to patient/care provider Clinical Summary of Care Provided Yes Yes Assessment/Plan Assessment/Plan (1) Non-pressure chronic ulcer of other part of left foot with necrosis of bone: CODE(S): L97.524 - Non-pressure chronic ulcer of other part of left foot with necrosis of bone PLAN: Patient was examined and evaluated. All findings were discussed with the patient. All questions were answered to the patient's satisfaction. Excisional debridement down to and including subcutaneous tissue, fascia, muscle and bone to the lateral left foot with a #15 blade and pickups without incident. Predebridement measurement is 3.4 x 1.9 x 0.2 cm. measurement is 3.5 x 2.0 x 0.3 cm. Left lower extremity were cleaned and patted dry. The ulceration was dressed with Betadine paint dry sterile dressing and light compression. Educated patient to continue strict blood sugar control. Patient will follow up regarding nuclear medicine three-phase bone scan to left lower extremity to rule out bone infection. Patient will be placed on additional week of ciprofloxacin 750 mg twice daily. Follow-up at the wound care center with Dr. Guaman in 1 week. (2) Other specified peripheral vascular diseases: CODE(S): I73.89 - Other specified peripheral vascular diseases (3) Acute osteomyelitis of left foot: CODE(S): M86.172 - Other acute osteomyelitis, left ankle and foot
== END 2023-06-16 23:59 | disposition home or self-care (01) ==
LOC: WC 14:30
PROVIDERS: PCP Family Medicine; Referring Provider Podiatrist Foot & Ankle Surgery; Visit Provider Podiatrist Foot & Ankle Surgery
DX: L97.524 Non-pressure chronic ulcer of other part of left foot with necrosis of bone (principal); M86.172 Other acute osteomyelitis, left ankle and foot; J44.9 Chronic obstructive pulmonary disease, unspecified; I73.89 Other specified peripheral vascular diseases; I10 Essential (primary) hypertension; F17.210 Nicotine dependence, cigarettes, uncomplicated; Z79.51 Long term (current) use of inhaled steroids; Z79.01 Long term (current) use of anticoagulants; Z79.82 Long term (current) use of aspirin; Z79.899 Other long term (current) drug therapy; Z86.718 Personal history of other venous thrombosis and embolism
CPT/HCPCS: 11044; 36415; 73630; 80048; 83036; 85025; 85652; 86140; 87070; 87075; 87077; 87101; 87186; 87205; 93923; 93970; 99214; G0463

== ENCOUNTER 2023-06-15 23:21 | Emergency (ER) | payer MEDICARE, SELFPAY ==
[2023-06-15 23:22] VITALS: BP 127/100; PULSE 97; RESP 30; TEMP 37; O2SAT 96; O2SAT 97; BMI 21.6
--- NOTE | 2023-06-15 23:25 | RAD_ITS ---
INDICATION: cp/sob/cough/copd EXAMINATION/TECHNIQUE: X-RAY - XR Chest 1 View COMPARISON: October 04, 2022, April 04, 2022, August 24, 2018. FINDINGS: LINES/DEVICES: None. LUNGS: Lungs symmetrically mildly hyperexpanded. 1.4 cm confluence of shadows or nodule posterior to the left cardiac shadow and posterior 11th rib. No pneumothorax. MEDIASTINUM AND CARDIOVASCULAR STRUCTURES: Cardiac silhouette not enlarged. BONES AND SOFT TISSUES: Unremarkable. RAD/Chest 1 View (Portable) IMPRESSION: Chronic obstructive pulmonary disease. Rodney of shadows versus left retrocardiac pulmonary nodule. CT follow-up recommended when clinically able Electronically Signed: Jaylan Martines MD at 0:00 EDT ,
--- NOTE | 2023-06-15 23:25 | EKG12_ITS ---
Test Reason : DYSRHYTHMIA Blood Pressure : / mmHG Vent. Rate : 091 BPM Atrial Rate : 091 BPM P-R Int : 152 ms QRS Dur : 078 ms QT Int : 332 ms P-R-T Axes : 076 068 073 degrees QTc Int : 408 ms Sinus rhythm with sinus arrhythmia with occasional Premature ventricular complexes Otherwise normal ECG Confirmed by CLARICE OCHOA, CHERI ([id number]), design editor KIMBERLEE BENNETT ([id number]) on 06/18/2023 11:36:57 AM Referred By: Confirmed By:CHERI ONEIL MD
--- NOTE | 2023-06-15 23:27 | ED.VIS.DYS ---
HPI History of Present Illness Chief Complaint: Shortness of Breath Informant: patient and EMS Associated Symptoms cough Chest Pain: Positive for Tightness Narrative Narrative: 73-year-old male with a history of COPD on 3 L of oxygen at home, states he felt like he was getting the cough and wheezing with exertion all day today, tonight he got up to walk to the bathroom and he got worse, then developed substernal chest tightness without radiation, and his breathing did not improve. He was using albuterol aerosols at home off-and-on which would help partially and temporarily, EMS did a duo nebulizer en route, he states that helped a little but he is still having significant dyspnea and chest tightness that gets worse with breathing. He has a history of remote DVT for which he is on Eliquis and he is also on baby aspirin, no history of PE that he knows of. States he does not feel like he is having a heart attack, he feels like this is all his COPD. No orthopnea or peripheral edema. On his home 3 L of oxygen resting at home and in respiratory distress for EMS prior to them treating him with anything, he was 95%. [facility] Medical History Asthma COLD (chronic obstructive lung disease) COPD (chronic obstructive pulmonary disease) HTN (hypertension) Hx of blood clots Tobacco dependence syndrome Home Medications aspirin 81 mg chewable tablet 81 mg PO DAILY@0800 02/03/14 [History Last Taken 10/03/22] budesonide-formoterol HFA 160 mcg-4.5 mcg/actuation aerosol inhaler (Symbicort) 2 puff PO BID 02/03/14 [History Last Taken 10/03/22] albuterol sulfate 90 mcg/actuation aerosol inhaler 2 puff inhalation Q4H PRN PRN Sob &/Or Wheezing 08/24/18 [History Last Taken Unknown] apixaban 5 mg tablet 5 mg PO BID 08/24/18 [History Last Taken 10/03/22] lisinopril 20 mg tablet 20 mg PO DAILY bp 08/24/18 [History Last Taken 05/27/23] metoprolol tartrate 50 mg tablet 50 mg PO BID 08/24/18 [History Last Taken 10/03/22] pravastatin 10 mg tablet 10 mg PO QHS 10/04/22 [History Last Taken 10/03/22] sucralfate 1 gram tablet (Carafate) 1 g PO TID 30 days #90 tabs 10/24/22 [Rx Last Taken Unknown] PEP device #1 ea 11/06/22 [Rx Last Taken Unknown] folic acid 400 mcg tablet 0.4 mg PO DAILY 11/06/22 [History Last Taken Unknown] umeclidinium 62.5 mcg/actuation blister powder for inhalation (Incruse Ellipta) 1 inh inhalation QDAY #30 ea 11/18/22 [Rx Last Taken Unknown] prednisone 10 mg tablet 10 mg PO DAILY 90 days #90 tabs 01/30/23 [Rx Last Taken Unknown] ipratropium 0.5 mg-albuterol 3 mg (2.5 mg base)/3 mL nebulization soln 3 ml inhalation Q4H PRN shortness of breath or wheezing #540 mL 03/18/23 [Rx Last Taken Unknown] buspirone 10 mg tablet 15 mg PO TID 04/16/23 [History Last Taken Unknown] cyanocobalamin (vitamin B-12) 100 mcg tablet (Vitamin B-12) 100 mcg PO DAILY 04/16/23 [History Last Taken 05/27/23] guaifenesin 1,200 mg tablet, extended release 12 hr 1,200 mg PO Q12H #60 tabs 04/16/23 [Rx Last Taken Unknown] budesonide-formoterol HFA 160 mcg-4.5 mcg/actuation aerosol inhaler (Symbicort) 2 inh inhalation BID 05/27/23 [History Last Taken Unknown] cholecalciferol (vitamin D3) 25 mcg (1,000 unit) capsule (Vitamin D3) 25 mcg PO DAILY 05/27/23 [History Last Taken Unknown] naproxen sodium 220 mg capsule (Aleve) 440 mg PO BID 05/27/23 [History Last Taken Unknown] oxycodone-acetaminophen 5 mg-325 mg tablet (Percocet) 1 tab PO Q6H PRN pain 7 days #28 tabs 05/27/23 [Rx Last Taken Unknown] umeclidinium 62.5 mcg/actuation blister powder for inhalation (Incruse Ellipta) 1 inh inhalation DAILY 05/27/23 [History Last Taken Unknown] ciprofloxacin HCl 750 mg tablet 750 mg PO BID 2 weeks #28 tabs 05/30/23 [Rx Last Taken Unknown] ciprofloxacin HCl 750 mg tablet 750 mg PO BID 1 week #14 tabs 06/10/23 [Rx Last Taken Unknown] prednisone 20 mg tablet 20 mg PO DAILY #5 TABLETS 06/16/23 [Rx Last Taken Unknown] Allergy/AdvReac Type Severity Reaction Status Date / Time azithromycin [From Zithromax] Allergy Swelling Verified 06/15/23 23:26 Penicillins Allergy Hives Verified 06/15/23 23:26 shellfish derived Allergy Hives Verified 06/15/23 23:26 venom-honey bee Allergy Hives Verified 06/15/23 23:26 [bee venom (honey bee)] chocolate flavor AdvReac Diarrhea Verified 06/15/23 23:26 Surgical History H/O neck surgery Heart valve replaced History of appendectomy History of hand surgery Social History Smoking Status: Former smoker alcohol intake: current alcohol intake frequency: a few times a week Alcohol type: beer seatbelt use: always ROS ROS ED Constitutional Constitutional ED: Reports fatigue, malaise and sweats; Denies fever(s) Eyes Eyes: Denies change in vision or diplopia ENT ENT ED: Denies rhinorrhea or sore throat Cardiovascular Cardiovascular: Reports chest pain; Denies palpitations Respiratory/Chest Respiratory/Chest: Reports cough, dyspnea, dyspnea on exertion, sputum and wheezing Gastrointestinal Gastrointestinal: Reports diarrhea; Denies abdominal pain, nausea or vomiting Genitourinary Genitourinary ED: Denies dysuria or hematuria Musculoskeletal Musculoskeletal: Denies back pain or neck pain Integumentary Denies abscess or rash Neurologic Neurologic: Denies headache(s), paresthesias or weakness Psychiatric Psychiatric: Denies suicidal ideation or suicidal thoughts EXAM Physical Exam Const Vital Signs: 06/15/23 23:22 06/15/23 23:28 06/15/23 23:28 Temperature 98.6 F Temperature Source Temporal Pulse Rate 97 Respiratory Rate 30 H Respiratory Effort Short of Breath Labored Accessory Muscle Use Respiratory Depth Normal Respiratory Pattern Tachypnea Blood Pressure 127/100 H Blood Pressure Mean 109 Pulse Ox 97 Oxygen Delivery Method Nasal Cannula Nasal Cannula Nasal Cannula Oxygen Flow Rate (L/min) 3 3 3 Fraction of Inspired Oxygen (FIO2) 06/15/23 23:30 06/16/23 00:25 06/16/23 01:00 Temperature Temperature Source Pulse Rate 93 91 91 Respiratory Rate 21 H 17 21 H Respiratory Effort Respiratory Depth Respiratory Pattern Tachypnea Blood Pressure 113/96 H 127/77 H Blood Pressure Mean 101 91 Pulse Ox 99 100 100 Oxygen Delivery Method Room Air Oxygen Flow Rate (L/min) Fraction of Inspired Oxygen (FIO2) 30 06/16/23 01:15 06/15/23 23:55 Temperature 98.6 F Temperature Source Oral Pulse Rate 99 Respiratory Rate 16 Respiratory Effort Respiratory Depth Respiratory Pattern Normal Blood Pressure Blood Pressure Mean Pulse Ox Oxygen Delivery Method Oxygen Flow Rate (L/min) Fraction of Inspired Oxygen (FIO2) Positive well nourished and well developed Constitutional Narrative: Malaised-appearing, mod resp distress General Appearance ED: well developed and NAD HEENT Reports moist mucous membranes normocephalic and atraumatic Eyes PERRL and EOMs intact bilaterally Neck full ROM, no lymphadenopathy, supple and no JVD Resp Resp Narrative: Moderate respiratory distress. Prolonged expiratory phase. Mild expiratory wheezing, diminished throughout symmetrically. Speaking in 2-3 word sentences. Cardio regular rate and regular rhythm GI non-tender and non-distended Auscultation: normoactive bowel sounds Palpation: soft Back/Spine no CVA tenderness General Back: other FROM Extremity normal to inspection and no calf tenderness General Extremety ED: Negative for edema, pulses abnormal or tenderness General Extremity: Negative for edema or pulses abnormal Neuro oriented x3, CN's II-XII intact bilaterally and no sensory deficits noted Sensorium / Orientation: awake and alert Motor Exam: strength 5/5 throughout Psych mental status grossly normal Skin no rashes or lesions noted and no wounds MDM MDM MDM Narrative Medical decision making narrative: While giving the patient a couple of nebulizer treatments, we placed him on BiPAP which helped his dyspnea. We did an VBG. It shows chronic CO2 retention with an acute respiratory alkalosis, more consistent with hyperventilation/anxiety than acute hypercapnia. Chest x-ray 1 view on my interpretation shows chronic COPD hyperexpansion with no acute infiltrates radiology was in agreement. I reviewed his labs. He has some renal insufficiency but this is actually better than his last measurement although his potassium is a little high, he has no acute EKG changes from this and is very mild, and the rest of his EKG is unremarkable except for a PVC. He has a leukocytosis this may be due to demargination from the stress of the event. His troponin is within normal limits. We were able to give him a trial off of BiPAP and he did very well. Now with not tachypneic and speaking in full sentences. In speaking with him, he does seem very anxious. His VBG is consistent with this. He says his left chest really hurts when he coughs. It also hurts when he moves, and it also hurts when I palpated, consistent with intercostal strain from coughing the day according to the history. He agrees. I offered him Tylenol but he cannot tolerate that due to stomach issues, and we are avoiding ibuprofen due to his kidneys. 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 He is 100% on his 3 L of oxygen that he uses at home. His vital signs are normal now. He has been off of BiPAP for about 2 hours. We repeated his troponin and his potassium they are normal. I offered admission he declines and is comfortable going home and comfortable letting him. States he does not walk much recently because of his foot wound, and actually has a motorized wheelchair on the way to his home for him to use to get around. Therefore I do not think we need to walk him down the fischer to evaluate him for hypoxemia. I am going to prescribe him a short course of prednisone only 20 mg a day for 5 days, I do not want to make his wound worse or more of an issue/infected. Lab Data Attestation: I reviewed the patient's lab results. Labs: Laboratory Results - last 24 hr 06/15/23 06/16/23 23:15 01:27 WBC 18.3 H RBC 3.77 L Hgb 11.4 L Hct 36.0 L MCV 95.5 H MCH 30.2 MCHC 31.7 L RDW Std Deviation 52.7 H RDW Coeff of Meek 15.1 H Plt Count 299 MPV 9.7 Immature Gran % (Auto) 1.000 H Neut % (Auto) 77.1 H Lymph % (Auto) 13.4 L Tw[place] % (Auto) 7.8 Eos % (Auto) 0.5 Baso % (Auto) 0.2 Absolute Neuts (auto) 14.1 H Absolute Lymphs (auto) 2.45 Nucleated RBC % 0 Sodium 135 L Potassium 5.4 H 4.5 Chloride 101 Carbon Dioxide 28.0 Anion Gap 6 BUN 46 H Creatinine 2.34 H Estim Creat Clear Calc 27.23 Est GFR (MDRD) Af Amer 36 L Est GFR (MDRD) Non-Af 29 L BUN/Creatinine Ratio 19.7 Glucose 132 H Calcium 9.4 Troponin I High Sens 11 11 ABG Data ABG results: ABG 06/15/23 23:48 Specimen Type JENNY Sample Site Not entered O2 % 30.0 VBG pH 7.50 H VBG pO2 35 VBG HCO3 26 VBG Total CO2 27 VBG O2 Sat (Calc) 73 H VBG Base Excess 3 POC Mix VBG pCO2 Pt Tmp 32.9 L O2 Delivery Device BiPAP Clinical Comments 14/6 12 30% Radiography Diagnostic Testing: Clinical Impression(s) from Imaging Studies Chest X-Ray 06/15/23 23:25 IMPRESSION: Chronic obstructive pulmonary disease. [place] of shadows versus left retrocardiac pulmonary nodule. CT follow-up recommended when clinically able Electronically Signed: Jaylan Martines MD at 0:00 EDT Reading Location ID and State: [facility] / [place] Tel , Service support , Rhythm Strip Rhythm Strip: Sinus Rhythm Rate: 90 Ectopy: PVC(s) EKG Initial EKG: Attestation: I personally reviewed and interpreted this EKG as follows: Interpretation: Sinus Rhythm and No Acute Injury Pattern Comments: PVC Discharge Plan Triage Chief Complaint: Shortness of Breath ED Provider: Jon Peguero Dx/Rx/DC Orders Clinical Impression: Muscle strain of chest wall, Acute exacerbation of chronic obstructive pulmonary disease (COPD), CKD (chronic kidney disease) Instructions: ED COPD Flare, ED Chest Wall Strain Prescriptions: New prednisone 20 mg tablet 20 mg PO DAILY Qty: 5 0RF No Action prednisone 10 mg tablet 10 mg PO DAILY 90 Days Qty: 90 3RF folic acid 400 mcg tablet 0.4 mg PO DAILY (DME) PEP device See Rx Instructions .ROUTE .MEDSUPPLY Qty: 1 0RF Rx Instructions: with training cyanocobalamin (vitamin B-12) [Vitamin B-12] 100 mcg tablet 100 mcg PO DAILY Patient Comments: TAKE 1 TABLET BY MOUTH EVERY DAY guaifenesin 1,200 mg tablet extended release 12hr 1,200 mg PO Q12H Qty: 60 6RF aspirin 81 MG tablet,chewable 81 mg PO DAILY@0800 Patient Comments: [facility] budesonide-formoterol [Symbicort] 1 INHALER inhaler 2 puff PO BID Patient Comments: COPD metoprolol tartrate 50 MG tablet 50 mg PO BID apixaban 5 MG tablet 5 mg PO BID lisinopril 20 MG tablet 20 mg PO DAILY albuterol sulfate 18 GM HFA aerosol inhaler 2 puff inhalation Q4H PRN PRN (Reason: Sob &/Or Wheezing) pravastatin 10 mg tablet 10 mg PO QHS Patient Comments: TAKE 1 TABLET BY MOUTH EVERY DAY buspirone 10 mg tablet 15 mg PO TID Patient Comments: TAKE ONE TABLET BY MOUTH TWICE A DAY Incruse Ellipta 62.5 mcg/actuation blister with device 1 inh inhalation DAILY budesonide-formoterol [Symbicort] 160-4.5 mcg/actuation HFA aerosol inhaler 2 inh inhalation BID naproxen sodium [Aleve] 220 mg capsule 440 mg PO BID cholecalciferol (vitamin D3) [Vitamin D3] 25 mcg (1,000 unit) capsule 25 mcg PO DAILY oxycodone-acetaminophen [Percocet] 5-325 mg tablet 1 tab PO Q6H PRN (Reason: pain) 7 Days Qty: 28 0RF ciprofloxacin HCl 750 mg tablet 750 mg PO BID 14 Days Qty: 28 0RF ciprofloxacin HCl 750 mg tablet 750 mg PO BID 7 Days Qty: 14 0RF sucralfate [Carafate] 1 gram tablet 1 g PO TID 30 Days Qty: 90 2RF Incruse Ellipta 62.5 mcg/actuation blister with device 1 inh inhalation QDAY Qty: 30 3RF ipratropium-albuterol 0.5 mg-3 mg(2.5 mg base)/3 mL solution for nebulization 3 ml inhalation Q4H PRN (Reason: shortness of breath or wheezing) Qty: 540 3RF Primary Care Provider: Cherelle Cutler Referrals: Cherelle Cutler DO [Primary Care Provider] - 3-5 Days if not improving Activity Restrictions/Additional Instructions: Consistent with COPD exacerbation. Received IV steroids in the ER, prescribed 20 mg once daily for the next 5 days then you may go back to the dose you are usually on 10 mg/day. The 20 mg dose can start morning of 06/16. Disposition Disposition: Home, Self Care
[2023-06-15 23:30] VITALS: PULSE 93; RESP 12; RESP 21; O2SAT 99
[2023-06-15] MEDS: MethylPREDNISolone 125 MG/2 ML Vial IV (23:37)
[2023-06-15] MEDS: 0.9% Normal Saline (1000mL) 1,000 ML 80 ML IV (23:37)
[2023-06-15 23:42] LABS: Absolute Lymphocyte Count 2.45 X10^3/uL (0.83-4.51); Absolute Neutrophil Count 14.1 X10^3/uL (2.0-7.7); Basophil# 0.04 X10^3/uL; Basophil% 0.2 % (0-1); Eosinophils% 0.5 % (0-5); Hemoglobin 11.4 g/dL (13.0-16.5); Lymphocyte # 2.45 X10^3/ul (0.83-4.51); Lymphocyte % 13.4 % (19-41); Mean Corp Hgb Conc 31.7 g/dL (32-36); Mean Corpuscular Hgb 30.2 pg (27.0-32.0); Mean Corpuscular Volume 95.5 fL (80-94); Mean Platelet Vol. 9.7 fl (6.2-12.0); Monocyte# 1.42 X10^3/uL; Monocyte% 7.8 % (0-10); NRBC Flagged by Analyzer 0 % (0-5); Neutrophil % 77.1 % (47-70); Platelet Count 299 K/mm3 (150-450); RBC Distribution Width CV 15.1 % (11.6-14.6); RBC Distribution Width SD 52.7 fl (35.1-43.9); Red Blood Count 3.77 M/mm3 (4.6-6.2); White Blood Count 18.3 K/mm3 (4.4-11.0)
[2023-06-15 23:51] LABS: Blood Gas Specimen Type VEN; Comment 14/6 12 30%; O2 Delivery Device BiPAP; SITE Not entered; VBG BASE EXCESS 3 mmol/L (-1.0-3.5); VBG Bicarbonate 26 mmol/L (22-26); VBG PO2 35 mmHg (25-40); VBG SO2 73 % (50-70); VBG TCO2 27 mmol/L (23-33); VBG pCO2 32.9 mmHg (41-51)
[2023-06-15 23:55] VITALS: PULSE 99; RESP 16
[2023-06-15] MEDS: Albuterol 2.5 MG/3 ML VIAL.NEB. INHALATION (23:55)
[2023-06-16] VITALS (8 sets, daily range): BP systolic 113–140; BP diastolic 63–96; PULSE 91–99; RESP 16–21; TEMP 36.7–37; O2SAT 96–100
[2023-06-16 00:06] LABS: Anion Gap 6 (5-15); BUN 46 mg/dL (7-18); BUN/Creat Ratio 19.7 RATIO (10-20); Calcium,Total 9.4 mg/dL (8.5-10.1); Chloride 101 mmol/L (98-107); Creatinine, Serum 2.34 mg/dL (0.70-1.30); EST Glomerular Filtration Rate 29 mL/min (>60); Est Glom Filt Rate - Afr Amer 36 mL/min (>60); Estimated Creatinine Clearance 27.23 ml/min; Glucose 132 mg/dL (74-106); Potassium 5.4 mmol/L (3.5-5.1); Sodium Level 135 mmol/L (136-145); Troponin-I HS 11 pg/mL (3.0-78.0)
[2023-06-16] MEDS: Albuterol 2.5 MG/3 ML VIAL.NEB. INHALATION ×3 (00:11→03:05)
--- NOTE | 2023-06-16 00:25 | CPS ---
[0023] Pt. taken off BiPAP at this time and placed back onto his 3L NC. Pt.'s VBG didn't show signs of hypercapnia, so doctor was agreeable to take pt. on BiPAP at this time. BiPAP will stay in pt.'s room per rescue measures.
--- NOTE | 2023-06-16 01:17 | CPS ---
x3 total Albuterol given to pt. in ER.
[2023-06-16 01:53] LABS: Potassium 4.5 mmol/L (3.5-5.1); Troponin-I HS 11 pg/mL (3.0-78.0)
--- NOTE | 2023-06-16 03:56 | CPS ---
[0305] x1 Albuterol given to pt. in ER. Pre-HR = 99, RR = 18 with diminished breath sounds. Post-HR = 104, RR = 20 with slightly clearer sounds in upper lobes, accompanied by wheezes.
== END 2023-06-16 07:55 | disposition home or self-care (01) ==
PROVIDERS: Emergency Provider Emergency Medicine; PCP Family Medicine; Visit Provider Emergency Medicine
DX: R06.02 Shortness of breath (principal); J44.9 Chronic obstructive pulmonary disease, unspecified; N18.9 Chronic kidney disease, unspecified; I12.9 Hypertensive chronic kidney disease with stage 1 through stage 4 chronic kidney disease, or unspecified chronic kidney disease; S29.011A Strain of muscle and tendon of front wall of thorax, initial encounter; Z87.891 Personal history of nicotine dependence; Z99.81 Dependence on supplemental oxygen; Z86.718 Personal history of other venous thrombosis and embolism; Z79.01 Long term (current) use of anticoagulants; Z79.82 Long term (current) use of aspirin; Z79.51 Long term (current) use of inhaled steroids; Z79.899 Other long term (current) drug therapy; Z90.49 Acquired absence of other specified parts of digestive tract
CPT/HCPCS: 71045; 80048; 82803; 84132; 84484; 85025; 87631; 93005; 94002; 94640; 96361; 96374; 99284; J7030; A4216

== ENCOUNTER → 2023-06-18 | Outpatient (CLI) | payer MEDICARE, SELFPAY ==
--- NOTE | 2023-06-18 08:22 | NM_ITS ---
INDICATION: OSTEOMYELITIS LEFT LATERAL FIFTH METATARSAL EXAMINATION: NUCLEAR MEDICINE TRIPLE PHASE BONE SCAN - NM Bone Three Phase Study TECHNIQUE: 26.1 mCi tc99m MDP were intravenously administered. Bone images were obtained. Triple phase protocol was utilized. COMPARISON/CORRELATED STUDIES: Prior study dated: May 27, 2023. FINDINGS: Flow images demonstrate increased flow to the distal lateral tarsal row and base of the fifth metatarsal. Blood pool images demonstrate increased activity in the distal row of the tarsal bones laterally. Delayed images demonstrate increased uptake is seen in the region of the base of the fifth metatarsal. NM/Bone Scan Three Phase IMPRESSION: Positive three-phase bone scan with findings suggestive of infectious process involving the base of the fifth metatarsal. Electronically Signed: Rick Casillas MD at 10:24 EDT ,
== END | disposition home or self-care (01) ==
PROVIDERS: PCP Family Medicine; Referring Provider Podiatrist Foot & Ankle Surgery; Visit Provider Podiatrist Foot & Ankle Surgery
DX: L97.529 Non-pressure chronic ulcer of other part of left foot with unspecified severity (principal); M86.9 Osteomyelitis, unspecified
CPT/HCPCS: 78315; A9503

== ENCOUNTER 2023-07-01 14:30 | Outpatient (RCR) | payer MEDICARE, SELFPAY ==
[2023-06-17 00:30] VITALS: BP 96/50; PULSE 77; RESP 20; TEMP 36.8; BMI 23.6
[2023-06-17 14:07] VITALS: BP 105/64; PULSE 74; RESP 18; TEMP 36.4; BMI 23.6
--- NOTE | 2023-06-17 15:14 | PCM.WC.PN ---
History of Present Illness Date of Service: 06/17/23 Chief Complaint: Left foot wound History of Wound: Left foot wound secondary to surgery from outside provider Subjective Subjective Mr. Oliva is a 73-year-old male presenting to clinic today for follow-up evaluation of left foot full-thickness ulceration. Patient is still taking his antibiotics without any issues. He noticed improvement to his ulceration. The redness is gone. He admits to drainage. He has plans for a three-phase bone scan to the left foot tomorrow at [facility]. He states he is having pain and rates his pain 7 on 10 on pain scale. It is controlled with oral pain medication. Denies trauma. Denies constitutional symptoms. No other pedal complaints at this time. He admits he is still waiting to hear back from vascular surgery department. Objective Data Objective Data Vital Signs: Vital Signs Temp Pulse Resp BP O2 Del Method O2 Flow Rate 97.6 F L 74 18 105/64 Room Air 3 06/17/23 14:06/17/23 14:06/17/23 14:06/17/23 14:06/17/23 14:06/17/23 00:30 Oxygen Flow Rate (L/min) 3 Oxygen Delivery Method Room Air Weight: 72.575 kg Body Mass Index (BMI) 23.6 Physical Exam Narrative Vascular: PT, peroneal arteries are biphasic on Doppler. AT and DP are monophasic on Doppler. CFT is 4 seconds. Nonpitting edema appreciated to the left lower extremity. Skin temperature gradient is warm to cool from proximal ankle to distal digits bilateral. Neurological: Light touch intact. Protective sensation is intact. Patient response to painful stimuli. Dermatological: Full-thickness ulceration to the lateral aspect of the left foot with bone exposed. Ulceration measures 3.5 x 1.8 x 0.3 cm. Positive probe to bone, with bone exposed. Wound base is fibrotic in nature with mild malodor. Periwound erythema which is blanchable, improving. No active drainage at this time. No purulent drainage appreciated. Evidence diffuse xerosis appreciated bilateral lower extremity. Excisional debridement down to and including subcutaneous tissue, fascia, muscle and bone to the lateral left foot with a #15 blade without incident. Predebridement measurement is 3.4 x 1.7 x 0.2 cm. measurement is 3.5 x 1.8 x 0.3 cm. Musculoskeletal: Moderate to severe palpatory tenderness appreciated the full-thickness ulceration of the left foot. No pain with calf compression. Debridement Note Debridement Note Debridement Free Text: Excisional debridement down to and including subcutaneous tissue, fascia, muscle and bone to the lateral left foot with a #15 blade without incident. Predebridement measurement is 3.4 x 1.7 x 0.2 cm. measurement is 3.5 x 1.8 x 0.3 cm. Post-Debridement Measurements and Additional Note: Post-Debridement Measurements/Treatment - Nurse 1 - General Ulcer Assessment Start: 06/17/23 14:07 Freq: Status: Active Protocol: CARLOS Activity Type Activity Date Activity User E-sign Co-sign Detail Recorded Client Recorded Date Recorded By Document 06/17/23 14:07 KW Desktop 06/17/23 14:19 KW 06/17/23 14:07 WC - Today's Visit Information Type of service Follow-up Visit (Physician/NON EMERGENCY SERVICES AMBULANCE DRIVER ) Arrival Mode Cane,Wheelchair Patient Identification Verified (Name & Yes ) Height and Weight Body Mass Index (BMI) 23.6 BMI Classification Normal Vital Signs Temperature (97.8 F-99.1 F) 97.6 F L Temperature Source Temporal Pulse Rate (60-100) 74 Pulse Location Monitor Respiratory Rate (12-18) 18 Respiratory rate source Observation Oxygen Delivery Method Room Air Blood Pressure (90/60-120/80) 105/64 Blood Pressure Mean (mm Hg) 77 Source Monitor Position Sitting Blood Pressure Location Right Arm History Since Last Visit- (Skip if this is Patient's initial visit) Have you changed medications since your No last visit? Any new allergies or adverse reactions No Had a fall/change in ADL's that may No increase risk of falls Signs or symptoms of abuse and/or No neglect since last visit Have you been in the hospital since your No last visit? Has dressing in place as prescribed Yes Has compression in place as prescribed N/A Has offloadiing in place as prescribed Yes Experienced any changes in pain level or No management Left Footwear Removable Cast Walker/Walking Boot Right Footwear Regular Shoe Pain Scale: 0-10 Numeric Is Patient Pain Free? Yes - Nurse 1 - General Ulcer Measurement Start: 06/17/23 14:07 Freq: Status: Active Protocol: Activity Type Activity Date Activity User E-sign Co-sign Detail Recorded Client Recorded Date Recorded By Document 06/17/23 14:07 KW Desktop 06/17/23 14:19 KW 06/17/23 14:07 Wound Center Nurse 1 1. L Lateral foot -Current Size (cm) - Length 3.4 -Current Size (cm) - Width 2 -Current Size (cm) - Depth 0.2 -Total Square Cm 6.8 -Exudate Amt Small -Exudate Type Serosanguineous -Wound Margin Distinct, Outline Attached -Granulation Amt Small (1-33%) -Granulation Quality [place] -Necrosis Amt Large (67-100%) -Necrotic Tissue Type Adherent Slough -Texture (Terri-wound Skin Appearance) Assessed -Moisture (Terri-wound Skin Appearance) Assessed, Maceration -Color (Terri-wound Skin Appearance) Assessed -Temperature (Terri-wound Skin No Abnormality Appearance) (Pt Warm) -Tenderness on Palpation (Terri-wound No Skin Appearance) -Ulcer Cleansing Rinsed/ Irrigated with Saline -Foul Odor after Cleansing No -Anesthetic Used 5% Lidocaine Gel WC - Nurse 2 - General Ulcer CM Notes Start: 06/17/23 14:07 Freq: Status: Active Protocol: Activity Type Activity Date Activity User E-sign Co-sign Detail Recorded Client Recorded Date Recorded By Document 06/17/23 14:35 Laptop 06/17/23 14:39 06/17/23 14:35 Wound Center Nurse 2 -Time 14:35 -Correct Patient Yes -Correct Side, Site, Position Yes -Correct Procedure Yes -Procedure Performed Yes -Type of Procedure Debridement -Clinical Debridement Bone -Tissue Removed Non-viable tissue -Post Debridement (cm) - Length 3.5 -Post Debridement (cm) - Width 1.8 -Post Debridement (cm) - Depth 0.3 -Total Square (Post) (cm) 6.30 -Area of Debridement (cm) - Length 3.5 -Area of Debridement (cm) - Width 1.8 -Total Square (Area) (cm) 6.30 -Tunneling No -Undermining/Tunneling No -Circular Undermining No -Wound/Ulcer Outcome Not Healed -Ulcer Cleansing Rinsed/ Irrigated with Saline -Foul Odor after Cleansing No -Bioengineered Tissue No -Bleeding Controlled with Pressure -Treatment Response Procedure Tolerated Well -Offloading Yes -Type of Offloading Surgical Shoe -Debridement - Bone, 1st 20sq cm Yes Pain Scale: 0-10 Numeric Is Patient Pain Free? Yes - Nurse 3 - General Ulcer D/C NN Start: 06/17/23 14:07 Freq: Status: Active Protocol: Activity Type Activity Date Activity User E-sign Co-sign Detail Recorded Client Recorded Date Recorded By Document 06/17/23 15:01 RB Desktop 06/17/23 15:02 RB 06/17/23 15:01 Wound Care Center Nurse 3 1. L Lateral foot -Ulcer Cleansing Rinsed/ Irrigated with Saline -Primary Dressing Applied Hysept ($) -Other Dressing dakins moistened gauze / abd/roll gauze -Primary Dressing Covered/Secured with Dry Gauze & Roll Gauze, Secured with Tape Treatment Response Procedure Tolerated Well Pain Scale: 0-10 Numeric Is Patient Pain Free? Yes WC - Visit Discharge Discharge Condition Stable Ambulatory Status Walker Transportation Private Auto Medication Reconcilliation completed & No provided to patient/care provider Clinical Summary of Care Provided Yes Assessment/Plan Assessment/Plan (1) Non-pressure chronic ulcer of other part of left foot with necrosis of bone: CODE(S): L97.524 - Non-pressure chronic ulcer of other part of left foot with necrosis of bone PLAN: Patient was examined and evaluated. All findings were discussed with the patient. All questions were answered to the patient's satisfaction. Excisional debridement down to and including subcutaneous tissue, fascia, muscle and bone to the lateral left foot with a #15 blade without incident. Predebridement measurement is 3.4 x 1.7 x 0.2 cm. measurement is 3.5 x 1.8 x 0.3 cm. Patient's left foot was dressed with Dakin's, dry sterile dressing and a light compression wrap to left lower extremity followed by cam boot. Patient will be having his three-phase bone scan tomorrow at [facility]. Once we get the results we will begin surgical planning for intervention at this time. Patient is understanding of this. Patient states that he is still on oxygen secondary to his COPD exacerbation and discharge safely [facility]. Patient states he is doing well. Follow-up at the wound care center with Dr. Guaman in 1 week. (2) Other specified peripheral vascular diseases: CODE(S): I73.89 - Other specified peripheral vascular diseases
[2023-06-24 14:14] VITALS: BP 99/59; PULSE 82; RESP 18; BMI 23.6
--- NOTE | 2023-06-24 15:10 | PN.PCM_ITS ---
History of Present Illness Date of Service: 06/24/23 Chief Complaint: Left foot wound History of Wound: Left foot wound secondary to surgery from outside provider Subjective Subjective Mr. Oliva is a 73-year-old male presenting to clinic today for follow-up evaluation of left foot full-thickness ulceration. Patient has had his three- phase bone scan at [facility] is anticipating results. Patient rates his pain as 7-10 on the pain scale. Patient's pain is controlled with oral pain medication. He does have a follow-up with vascular surgery in the next 3 weeks with the physician reproductive healthcare assistant. He denies any trauma. Denies constitutional symptoms. No other pedal complaints at this time. Objective Data Objective Data Vital Signs: Vital Signs Temp Pulse Resp BP O2 Del Method O2 Flow Rate 97.6 F L 82 18 99/59 L Nasal Cannula 3 06/17/23 14:07 06/24/23 14:14 06/24/23 14:14 06/24/23 14:14 06/24/23 14:14 06/24/23 14:14 Oxygen Flow Rate (L/min) 3 Oxygen Delivery Method Nasal Cannula Weight: 72.575 kg Body Mass Index (BMI) 23.6 Physical Exam Narrative Vascular: PT, peroneal arteries are biphasic on Doppler. AT and DP are monophasic on Doppler. CFT is 4 seconds. Nonpitting edema appreciated to the left lower extremity. Skin temperature gradient is warm to cool from proximal ankle to distal digits bilateral. Neurological: Light touch intact. Protective sensation is intact. Patient response to painful stimuli. Dermatological: Full-thickness ulceration to the lateral aspect of the left foot with bone exposed. Ulceration measures 3.5 x 2.0 x 0.4 cm. Positive probe to bone, with bone exposed and exposed tendon. Wound base is fibrotic in nature with mild malodor. Periwound erythema which is blanchable, improving. No active drainage at this time. No purulent drainage appreciated. Evidence diffuse xerosis appreciated bilateral lower extremity. Excisional debridement down to and including subcutaneous tissue, fascia, muscle and bone to the lateral left foot with a #15 blade without incident. Predebridement measurement is 3.3 x 1.9 x 0.3 cm. measurement is 3.5 x 2.0 x 0.4 cm. Musculoskeletal: Moderate to severe palpatory tenderness appreciated the full- thickness ulceration of the left foot. No pain with calf compression. Debridement Note Debridement Note Debridement Free Text: Excisional debridement down to and including subcutaneous tissue, fascia, muscle and bone to the lateral left foot with a #15 blade without incident. Predebridement measurement is 3.3 x 1.9 x 0.3 cm. measurement is 3.5 x 2.0 x 0.4 cm. Post-Debridement Measurements and Additional Note: Post-Debridement Measurements/Treatment WC - Nurse 1 - General Ulcer Assessment Start: 06/17/23 14:07 Freq: Status: Active Protocol: [employer] Activity Type Activity Date Activity User E-sign Co-sign Detail Recorded Client Recorded Date Recorded By Document 06/17/23 14:07 [employer] Desktop 06/17/23 14:19 KW Document 06/24/23 14:14 KW Desktop 06/24/23 14:17 KW 06/17/23 06/24/23 14:07 14:14 WC - Today's Visit Information Type of service Follow-up Visit Follow-up Visit (Physician/[facility] (Physician/[facility] ) ) Arrival Mode Cane,Wheelchair Wheelchair Accompanied by Patient Identification Verified (Name & Yes Yes ) Height and Weight Body Mass Index (BMI) 23.6 23.6 BMI Classification Normal Normal Vital Signs Temperature (97.8 F-99.1 F) 97.6 F L Temperature Source Temporal Pulse Rate (60-100) 74 82 Pulse Location Monitor Monitor Respiratory Rate (12-18) 18 18 Respiratory rate source Observation Observation Oxygen Delivery Method Room Air Nasal Cannula O2 L/MIN (L/min) 3 Blood Pressure (90/60-120/80) 105/64 99/59 L Blood Pressure Mean (mm Hg) 77 72 Source Monitor Monitor Position Sitting Semi-Fowlers Blood Pressure Location Right Arm Left Arm History Since Last Visit- (Skip if this is Patient's initial visit) Have you changed medications since your No No last visit? Any new allergies or adverse reactions No No Had a fall/change in ADL's that may No No increase risk of falls Signs or symptoms of abuse and/or No No neglect since last visit Have you been in the hospital since your No No last visit? Has dressing in place as prescribed Yes Yes Has compression in place as prescribed N/A N/A Has offloadiing in place as prescribed Yes Yes Experienced any changes in pain level or No No management Left Footwear Removable Cast Surgical Shoe Walker/Walking with pressure Boot relief insole Right Footwear Regular Shoe Regular Shoe Pain Scale: 0-10 Numeric Is Patient Pain Free? Yes Yes BRUCE - Nurse 1 - General Ulcer Measurement Start: 06/17/23 14:07 Freq: Status: Active Protocol: Activity Type Activity Date Activity User E-sign Co-sign Detail Recorded Client Recorded Date Recorded By Document 06/17/23 14:07 [employer] 06/17/23 14:19 Document 06/24/23 14:14 [employer] 06/24/23 14:17 KW 06/17/23 06/24/23 14:07 14:14 Wound Center Nurse 1 1. L Lateral foot -Current Size (cm) - Length 3.4 3.3 -Current Size (cm) - Width 2 1.9 -Current Size (cm) - Depth 0.2 0.3 -Total Square Cm 6.8 6.27 -Exudate Amt Small Medium -Exudate Type Serosanguineous Serosanguineous -Wound Margin Distinct, Distinct, Outline Outline Attached Attached -Granulation Amt Small (1-33%) Small (1-33%) -Granulation Quality [place] Red -Necrosis Amt Large (67-100%) Large (67-100%) -Necrotic Tissue Type Adherent Slough Adherent Slough -Texture (Terri-wound Skin Appearance) Assessed Assessed -Moisture (Terri-wound Skin Appearance) Assessed, Assessed, Maceration Maceration -Color (Terri-wound Skin Appearance) Assessed Assessed -Temperature (Terri-wound Skin No Abnormality No Abnormality Appearance) (Pt Warm) (Pt Warm) -Tenderness on Palpation (Terri-wound No No Skin Appearance) -Ulcer Cleansing Rinsed/ Rinsed/ Irrigated with Irrigated with Saline Saline -Foul Odor after Cleansing No No -Anesthetic Used 5% Lidocaine 5% Lidocaine Gel Gel BRUCE - Nurse 2 - General Ulcer CM Notes Start: 06/17/23 14:07 Freq: Status: Active Protocol: Activity Type Activity Date Activity User E-sign Co-sign Detail Recorded Client Recorded Date Recorded By Document 06/17/23 14:35 Laptop 06/17/23 14:39 Document 06/24/23 14:28 Laptop 06/24/23 14:34 06/17/23 06/24/23 14:35 14:28 Wound Center Nurse 2 1. L Lateral foot -Time 14:35 14:28 -Correct Patient Yes Yes -Correct Side, Site, Position Yes Yes -Correct Procedure Yes Yes -Procedure Performed Yes Yes -Type of Procedure Debridement Debridement -Clinical Debridement Bone Bone -Tissue Removed Non-viable Slough tissue -Post Debridement (cm) - Length 3.5 3.5 -Post Debridement (cm) - Width 1.8 2.0 -Post Debridement (cm) - Depth 0.3 0.4 -Total Square (Post) (cm) 6.30 7.00 -Area of Debridement (cm) - Length 3.5 3.5 -Area of Debridement (cm) - Width 1.8 2.0 -Total Square (Area) (cm) 6.30 7.00 -Tunneling No No -Undermining/Tunneling No No -Circular Undermining No No -Wound/Ulcer Outcome Not Healed Not Healed -Ulcer Cleansing Rinsed/ Rinsed/ Irrigated with Irrigated with Saline Saline -Foul Odor after Cleansing No No -Bioengineered Tissue No No -Bleeding Controlled with Pressure Pressure -Treatment Response Procedure Procedure Tolerated Well Tolerated Well -Offloading Yes No -Type of Offloading Surgical Shoe Surgical Shoe -Debridement - Bone, 1st 20sq cm Yes Yes Pain Scale: 0-10 Numeric Is Patient Pain Free? Yes Yes - Nurse 3 - General Ulcer D/C NN Start: 06/17/23 14:07 Freq: Status: Active Protocol: Activity Type Activity Date Activity User E-sign Co-sign Detail Recorded Client Recorded Date Recorded By Document 06/17/23 15:01 RB Desktop 06/17/23 15:02 RB Document 06/24/23 14:53 DL Desktop 06/24/23 14:54 DL 06/17/23 06/24/23 15:01 14:53 Wound Care Center Nurse 3 1. L Lateral foot -Ulcer Cleansing Rinsed/ Soap and Water Irrigated with Saline -Foul Odor after Cleansing No -Primary Dressing Applied Hysept ($) -Other Dressing dakins dakins moistened gauze / abd/roll gauze -Primary Dressing Covered/Secured with Dry Gauze & Dry Gauze & Roll Gauze, Roll Gauze, Secured with Secured with Tape Tape -Other Covering ABD Treatment Response Procedure Procedure Tolerated Well Tolerated Well Pain Scale: 0-10 Numeric Is Patient Pain Free? Yes Yes WC - Visit Discharge Discharge Condition Stable Stable Ambulatory Status Walker Ambulatory, Wheelchair Transportation Private Auto Private Auto Medication Reconcilliation completed & No provided to patient/care provider Clinical Summary of Care Provided Yes Facility Type Home Health Orders Sent Yes Assessment/Plan Assessment/Plan (1) Non-pressure chronic ulcer of other part of left foot with necrosis of bone: CODE(S): L97.524 - Non-pressure chronic ulcer of other part of left foot with necrosis of bone PLAN: Patient was examined and evaluated. All findings were discussed with the patient. All questions were answered to the patient's satisfaction. Prior to debridement AV block of 2% Xylocaine plain, 5 cc was administered to the left lateral full-thickness ulceration. Excisional debridement down to and including subcutaneous tissue, fascia, muscle and bone to the lateral left foot with a #15 blade without incident. Predebridement measurement is 3.3 x 1.9 x 0.3 cm. measurement is 3.5 x 2.0 x 0.4 cm. Left lower extremities were cleaned and patted dry. Dakin solution on 4 x 4's was applied to the ulceration followed by dry sterile dressing and light compression. Patient will follow-up with vascular surgery physician reproductive healthcare assistant in approximately 3 weeks. Patient will finish all antibiotics as written. He will take oral pain medication as needed for pain control. After review of the patient's three-phase bone scan the delay image shows evidence of uptake at the level of the base of the fifth metatarsal suggestive of osteomyelitis. The patient cannot get an MRI secondary to metal implants in his body. We move forward with booking the patient for surgical intervention after vascular recommendations. Follow-up at the wound care center with Dr. Guaman in 1 week. (2) Other specified peripheral vascular diseases: CODE(S): I73.89 - Other specified peripheral vascular diseases (3) Acute osteomyelitis of left foot: CODE(S): M86.172 - Other acute osteomyelitis, left ankle and foot
[2023-07-01 14:44] VITALS: BP 108/69; PULSE 83; RESP 20; TEMP 36.4; BMI 23.6
--- NOTE | 2023-07-01 16:11 | PCM.WC.PN ---
History of Present Illness Date of Service: 07/01/23 Chief Complaint: Left foot wound History of Wound: Left foot wound secondary to surgery from outside provider Subjective Subjective Mr. Oliva is a 73-year-old male presented clinic today follow-up evaluation of full-thickness ulceration to lateral aspect of left foot. Patient was seen by vascular surgery today who said that he does not need any intervention at this time. Patient's recent bone scan shows evidence of osteomyelitis to the base of the fifth metatarsal. He states that he has pain 5 out of 10 on the pain scale with touch and pressure. Patient understands that he needs to have surgery to the left foot. Denies trauma. Denies constitutional symptoms. Other pedal complaints at this time. Objective Data Objective Data Vital Signs: Vital Signs Temp Pulse Resp BP O2 Del Method O2 Flow Rate 97.6 F L 83 20 H 108/69 Nasal Cannula 3 07/01/23 14:44 07/01/23 14:44 07/01/23 14:44 07/01/23 14:44 06/24/23 14:14 06/24/23 14:14 Oxygen Flow Rate (L/min) 3 Oxygen Delivery Method Nasal Cannula Weight: 72.575 kg Body Mass Index (BMI) 23.6 Physical Exam Narrative PT, peroneal arteries are biphasic on Doppler. AT and DP are monophasic on Doppler. CFT is 4 seconds. Nonpitting edema appreciated to the left lower extremity. Skin temperature gradient is warm to cool from proximal ankle to distal digits bilateral. Neurological: Light touch intact. Protective sensation is intact. Patient response to painful stimuli. Dermatological: Full-thickness ulceration to the lateral aspect of the left foot with bone exposed. Ulceration measures 3.1 x 1.9 x 0.4 cm. Positive probe to bone, with bone exposed and exposed tendon. Wound base is fibrotic in nature with mild malodor. Periwound erythema which is blanchable, improving. No active drainage at this time. No purulent drainage appreciated. Evidence diffuse xerosis appreciated bilateral lower extremity. Excisional debridement down to and including subcutaneous tissue, fascia, muscle to the lateral left foot with a #15 blade without incident. Predebridement measurement is 3.0 x 1.8 x 0.3 cm. Postdebridement measurement is 3.1 x 1.9 x 0.4 cm. Musculoskeletal: Moderate to severe palpatory tenderness appreciated the full-thickness ulceration of the left foot. No pain with calf compression. Debridement Note Debridement Note Debridement Free Text: Excisional debridement down to and including subcutaneous tissue, fascia, muscle to the lateral left foot with a #15 blade without incident. Predebridement measurement is 3.0 x 1.8 x 0.3 cm. Postdebridement measurement is 3.1 x 1.9 x 0.4 cm. Post-Debridement Measurements and Additional Note: Post-Debridement Measurements/Treatment - Nurse 1 - General Ulcer Assessment Start: 06/17/23 14:07 Freq: Status: Active Protocol: BRUCE.[facility] Activity Type Activity Date Activity User E-sign Co-sign Detail Recorded Client Recorded Date Recorded By Document 06/17/23 14:07 KW Desktop 06/17/23 14:19 KW Document 06/24/23 14:14 KW Desktop 06/24/23 14:17 KW Document 07/01/23 14:44 DL [email or web address] 07/01/23 14:48 DL 06/17/23 06/24/23 07/01/23 14:07 14:14 14:44 - Today's Visit Information Type of service Follow-up Visit Follow-up Visit Follow-up Visit (Physician/[facility] (Physician/[facility] (Physician/[facility] ) ) ) Arrival Mode Cane,Wheelchair Wheelchair Ambulatory, Wheelchair Transfer Assistance Manual Transfer Assist (Other) x1 Accompanied by Patient Identification Verified (Name & Yes Yes Yes ) Patient Requires Transmission-Based No Precautions Height and Weight Body Mass Index (BMI) 23.6 23.6 23.6 BMI Classification Normal Normal Normal Vital Signs Temperature (97.8 F-99.1 F) 97.6 F L 97.6 F L Temperature Source Temporal Temporal Pulse Rate (60-100) 74 82 83 Pulse Location Monitor Monitor Monitor Respiratory Rate (12-18) 18 18 20 H Respiratory rate source Observation Observation Observation Oxygen Delivery Method Room Air Nasal Cannula O2 L/MIN (L/min) 3 Blood Pressure (90/60-120/80) 105/64 99/59 L 108/69 Blood Pressure Mean (mm Hg) 77 72 82 Source Monitor Monitor Monitor Position Sitting Semi-Fowlers Blood Pressure Location Right Arm Left Arm History Since Last Visit- (Skip if this is Patient's initial visit) Have you changed medications since your No No No last visit? Any new allergies or adverse reactions No No No Had a fall/change in ADL's that may No No No increase risk of falls Signs or symptoms of abuse and/or No No No neglect since last visit Have you been in the hospital since your No No No last visit? Has dressing in place as prescribed Yes Yes Yes Has compression in place as prescribed N/A N/A N/A Has offloadiing in place as prescribed Yes Yes Yes Experienced any changes in pain level or No No No management Left Footwear Removable Cast Surgical Shoe Surgical Shoe Walker/Walking with pressure with pressure Boot relief insole relief insole Right Footwear Regular Shoe Regular Shoe Pain Scale: 0-10 Numeric Is Patient Pain Free? Yes Yes Yes WC - Nurse 1 - General Ulcer Measurement Start: 06/17/23 14:07 Freq: Status: Active Protocol: Activity Type Activity Date Activity User E-sign Co-sign Detail Recorded Client Recorded Date Recorded By Document 06/17/23 14:07 KW [employer] 06/17/23 14:19 KW Document 06/24/23 14:14 KW Desktop 06/24/23 14:17 KW Document 07/01/23 14:44 DL [email or web address] 07/01/23 14:48 DL 06/17/23 06/24/23 07/01/23 14:07 14:14 14:44 Wound Center Nurse 1 1. L Lateral foot -Current Size (cm) - Length 3.4 3.3 3 -Current Size (cm) - Width 2 1.9 1.8 -Current Size (cm) - Depth 0.2 0.3 0.3 -Total Square Cm 6.8 6.27 5.4 -Exudate Amt Small Medium Medium -Exudate Type Serosanguineous Serosanguineous Serosanguineous -Wound Margin Distinct, Distinct, Distinct, Outline Outline Outline Attached Attached Attached -Granulation Amt Small (1-33%) Small (1-33%) Medium (34-66%) -Granulation Quality [place],Red -Necrosis Amt Large (67-100%) Large (67-100%) Medium (34-66%) -Necrotic Tissue Type Adherent Slough Adherent Slough Adherent Slough -Structure Exposed N/A -Texture (Terri-wound Skin Appearance) Assessed Assessed Scarring -Moisture (Terri-wound Skin Appearance) Assessed, Assessed, Maceration Maceration Maceration -Color (Terri-wound Skin Appearance) Assessed Assessed No Abnormality -Temperature (Terri-wound Skin No Abnormality No Abnormality No Abnormality Appearance) (Pt Warm) (Pt Warm) (Pt Warm) -Tenderness on Palpation (Terri-wound No No Skin Appearance) -Ulcer Cleansing Rinsed/ Rinsed/ Soap and Water Irrigated with Irrigated with Saline Saline -Foul Odor after Cleansing No No No -Anesthetic Used 5% Lidocaine 5% Lidocaine 5% Lidocaine Gel Gel Gel WC - Nurse 2 - General Ulcer CM Notes Start: 06/17/23 14:07 Freq: Status: Active Protocol: Activity Type Activity Date Activity User E-sign Co-sign Detail Recorded Client Recorded Date Recorded By Document 06/17/23 14:35 Laptop 06/17/23 14:39 JF Document 06/24/23 14:28 JF Laptop 06/24/23 14:34 Document 07/01/23 14:55 [place] [id number] 07/01/23 14:57 DS 06/17/23 06/24/23 07/01/23 14:35 14:28 14:55 Wound Center Nurse 2 1. L Lateral foot -Time 14:35 14:28 14:55 -Correct Patient Yes Yes Yes -Correct Side, Site, Position Yes Yes Yes -Correct Procedure Yes Yes Yes -Procedure Performed Yes Yes Yes -Type of Procedure Debridement Debridement Debridement -Clinical Debridement Bone Bone Muscle / Fascia -Tissue Removed Non-viable Slough Muscle,Fascia, tissue Tendon -Post Debridement (cm) - Length 3.5 3.5 3.1 -Post Debridement (cm) - Width 1.8 2.0 1.9 -Post Debridement (cm) - Depth 0.3 0.4 0.4 -Total Square (Post) (cm) 6.30 7.00 5.89 -Area of Debridement (cm) - Length 3.5 3.5 3.1 -Area of Debridement (cm) - Width 1.8 2.0 1.9 -Total Square (Area) (cm) 6.30 7.00 5.89 -Tunneling No No No -Undermining/Tunneling No No No -Circular Undermining No No No -Wound/Ulcer Outcome Not Healed Not Healed Not Healed -Ulcer Cleansing Rinsed/ Rinsed/ Irrigated with Irrigated with Saline Saline -Foul Odor after Cleansing No No -Bioengineered Tissue No No -Bleeding Controlled with Pressure Pressure Pressure -Treatment Response Procedure Procedure Procedure Tolerated Well Tolerated Well Tolerated Well -Offloading Yes No -Type of Offloading Surgical Shoe Surgical Shoe -Debridement - Muscle / Fascia, 1st Yes 20sq cm -Debridement - Bone, 1st 20sq cm Yes Yes Pain Scale: 0-10 Numeric Is Patient Pain Free? Yes Yes Yes - Nurse 3 - General Ulcer D/C NN Start: 06/17/23 14:07 Freq: Status: Active Protocol: Activity Type Activity Date Activity User E-sign Co-sign Detail Recorded Client Recorded Date Recorded By Document 06/17/23 15:01 RB Desktop 06/17/23 15:02 RB Document 06/24/23 14:53 DL Desktop 06/24/23 14:54 DL Document 07/01/23 15:09 DL [email or web address] 07/01/23 15:11 DL 06/17/23 06/24/23 07/01/23 15:01 14:53 15:09 Wound Care Center Nurse 3 1. L Lateral foot -Ulcer Cleansing Rinsed/ Soap and Water Rinsed/ Irrigated with Irrigated with Saline Saline -Foul Odor after Cleansing No No -Primary Dressing Applied Hysept ($) -Other Dressing dakins dakins dakins moistened gauze / abd/roll gauze -Primary Dressing Covered/Secured with Dry Gauze & Dry Gauze & Dry Gauze & Roll Gauze, Roll Gauze, Roll Gauze, Secured with Secured with Secured with Tape Tape Tape -Other Covering ABD Treatment Response Procedure Procedure Procedure Tolerated Well Tolerated Well Tolerated Well Pain Scale: 0-10 Numeric Is Patient Pain Free? Yes Yes Yes WC - Visit Discharge Discharge Condition Stable Stable Stable Ambulatory Status Walker Ambulatory, Ambulatory, Wheelchair Wheelchair Transportation Private Auto Private Auto Private Auto Medication Reconcilliation completed & No provided to patient/care provider Clinical Summary of Care Provided Yes Facility Type Home Health Orders Sent Yes Assessment/Plan Assessment/Plan (1) Non-pressure chronic ulcer of other part of left foot with necrosis of bone: CODE(S): L97.524 - Non-pressure chronic ulcer of other part of left foot with necrosis of bone PLAN: Patient was examined and evaluated. All findings were discussed with the patient. All questions were answered to the patient's satisfaction. Excisional debridement down to and including subcutaneous tissue, fascia, muscle to the lateral left foot with a #15 blade without incident. Predebridement measurement is 3.0 x 1.8 x 0.3 cm. Postdebridement measurement is 3.1 x 1.9 x 0.4 cm. Left lower extremities were cleaned and patted dry. The ulceration was dressed with Dakin's dry sterile dressing and single-layer compression wrap. Patient will do daily dressing change at home. After discussion with the patient and the go ahead from vascular it was educated the patient that he will need to present to the emergency department next Thursday for admission under medicine for cardiac and pulmonary clearance prior to surgery. The goal of the patient's hospital visit will be to take the patient to the operating room to perform incision of bone cortex, tendon transfer, application of skin graft substitute with wound VAC application and application of antibiotic beads to the left lower extremity to heal with the patient's osteomyelitis and chronic wound. All risk and benefits were discussed with the patient great detail. He was understanding. And will follow-up in the emergency department next Thursday for admission. Follow-up at the wound care center with Dr. Guaman in 1 week. (2) Other specified peripheral vascular diseases: CODE(S): I73.89 - Other specified peripheral vascular diseases (3) Acute osteomyelitis of left foot: CODE(S): M86.172 - Other acute osteomyelitis, left ankle and foot
== END 2023-07-17 23:59 | disposition home or self-care (01) ==
LOC: WC 14:30
PROVIDERS: PCP Family Medicine; Referring Provider Podiatrist Foot & Ankle Surgery; Visit Provider Podiatrist Foot & Ankle Surgery
DX: T81.89XA Other complications of procedures, not elsewhere classified, initial encounter (principal); L97.524 Non-pressure chronic ulcer of other part of left foot with necrosis of bone; M86.172 Other acute osteomyelitis, left ankle and foot; J44.9 Chronic obstructive pulmonary disease, unspecified; I73.89 Other specified peripheral vascular diseases; Y83.8 Other surgical procedures as the cause of abnormal reaction of the patient, or of later complication, without mention of misadventure at the time of the procedure; Z79.82 Long term (current) use of aspirin; Z79.01 Long term (current) use of anticoagulants; Z79.899 Other long term (current) drug therapy
CPT/HCPCS: 11043; 11044

== ENCOUNTER 2023-07-06 10:24 | Inpatient (IN) | payer MEDICARE, SELFPAY ==
[2023-07-06] VITALS (10 sets, daily range): BP systolic 94–147; BP diastolic 60–90; PULSE 75–85; RESP 16–18; TEMP 36.1–36.6; O2SAT 97–100; BMI 22.0; BMI 21.6
--- NOTE | 2023-07-06 10:48 | EKG12_ITS ---
Test Reason : Blood Pressure : / mmHG Vent. Rate : 082 BPM Atrial Rate : 082 BPM P-R Int : 160 ms QRS Dur : 102 ms QT Int : 348 ms P-R-T Axes : 088 060 072 degrees QTc Int : 406 ms Normal sinus rhythm Incomplete right bundle branch block Borderline ECG Confirmed by Julian Booker ([id number]), editor trade journal ANDREW VALDEZ ([id number]) on 07/07/2023 8:06:54 AM Referred By: Confirmed By:Julian Booker
--- NOTE | 2023-07-06 10:50 | RAD_ITS ---
STUDY: X-RAY - LEFT FOOT CLINICAL: Male, 73 years old. Left foot wound. TECHNIQUE: 3 views of the left foot. COMPARISON: None. FINDINGS: Normal talus, calcaneus, and tarsal bones. Normal visualized subtalar, talonavicular, calcaneocuboid, tarsal and tarsometatarsal articulations. Normal metatarsi. Normal metatarsophalangeal joint of the great toe. Normal tibial and fibular sesamoid bones. Normal interphalangeal joint of the great toe. Normal phalanges of the great toe. Normal second through fifth metatarsophalangeal joints. Normal interphalangeal joints and phalanges of the lesser toes. There is soft tissue swelling along the dorsum of the forefoot. There is no demonstrated fracture. RAD/Foot min 3 Views IMPRESSION: Soft tissue swelling along the dorsum of the forefoot. No demonstrated fracture. Electronically Signed: Juan Jose Nicholson MD at 11:39 EDT ,
--- NOTE | 2023-07-06 10:51 | ED.VIS.LOWEX ---
HPI History of Present Illness HPI Narrative: 73-year-old male with chronic left foot wound for 2 months. Not improving. Sent in by podiatry to have medical clearance for admission for left foot surgery. I spoke to the sieve maker he would like him started on IV antibiotics. Screening labs. Chief Complaint: Wound Informant: patient and spouse/S.O. Onset/Context/Timing Onset: Month(s) Context: Gradual Onset Timing: Continuous Quality of Pain: Aching Current Severity: Mild Maximum Severity: Mild Associated Symptoms Associated Symptoms: Negative for Parasthesia, Weakness or Loss of Funtion Narrative Narrative: 73-year-old male history of COPD on oxygen at home 2 to 4 L. 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 He is on the blood thinner Eliquis. For last 2 months patient's had a wound to his left lateral foot. It is not improving. He was sent in today by his sieve maker, Dr. Guaman, for medical clearance and admission for pending left foot surgery. Prior similar symptoms: Yes Recent Illness/Hospitalization: No PFSH PFSH Medical History Hx of blood clots HTN (hypertension) Asthma COPD (chronic obstructive pulmonary disease) Tobacco dependence syndrome COLD (chronic obstructive lung disease) Home Medications ?Medication ?Instructions ?Recorded ?Last Taken ?Type aspirin 81 mg chewable tablet 81 mg PO DAILY@0800 02/03/14 10/03/22 History budesonide-formoterol HFA 160 2 puff PO BID 02/03/14 10/03/22 History mcg-4.5 mcg/actuation aerosol inhaler (Symbicort) albuterol sulfate 90 mcg/actuation 2 puff inhalation Q4H PRN PRN Sob 08/24/18 Unknown History aerosol inhaler &/Or Wheezing apixaban 5 mg tablet 5 mg PO BID 08/24/18 10/03/22 History lisinopril 20 mg tablet 20 mg PO DAILY bp 08/24/18 05/27/23 History metoprolol tartrate 50 mg tablet 50 mg PO BID 08/24/18 10/03/22 History pravastatin 10 mg tablet 10 mg PO QHS 10/04/22 10/03/22 History sucralfate 1 gram tablet (Carafate) 1 g PO TID 30 days #90 tabs 10/24/22 Unknown Rx PEP device #1 ea 11/06/22 Unknown Rx folic acid 400 mcg tablet 0.4 mg PO DAILY 11/06/22 Unknown History prednisone 10 mg tablet 10 mg PO DAILY 90 days #90 tabs 01/30/23 Unknown Rx ipratropium 0.5 mg-albuterol 3 mg 3 ml inhalation Q4H PRN shortness 03/18/23 Unknown Rx (2.5 mg base)/3 mL nebulization of breath or wheezing #540 mL soln buspirone 10 mg tablet 15 mg PO TID 04/16/23 Unknown History cyanocobalamin (vitamin B-12) 100 100 mcg PO DAILY 04/16/23 05/27/23 History mcg tablet (Vitamin B-12) cholecalciferol (vitamin D3) 25 25 mcg PO DAILY 05/27/23 Unknown History mcg (1,000 unit) capsule (Vitamin D3) oxycodone-acetaminophen 5 mg-325 1 tab PO Q6H PRN pain 7 days #28 05/27/23 Unknown Rx mg tablet (Percocet) tabs oxycodone-acetaminophen 5 mg-325 1 tab PO Q6H PRN pain 7 days #28 06/20/23 Unknown Rx mg tablet (Percocet) tabs naproxen sodium 220 mg capsule 440 mg PO BID PRN 07/01/23 Unknown History (Aleve) Allergy/AdvReac Type Severity Reaction Status Date / Time azithromycin (From Zithromax) Allergy Swelling Verified 07/06/23 10:25 Penicillins Allergy Hives Verified 07/06/23 10:25 shellfish derived Allergy Hives Verified 07/06/23 10:25 venom-honey bee (bee venom Allergy Hives Verified 07/06/23 10:25 (honey bee)) chocolate flavor AdvReac Diarrhea Verified 07/06/23 10:25 Family History Other Asthma CAD (coronary artery disease) CVA (cerebral vascular accident) Cancer Diabetes Heart disease Hypertension Myocardial infarction Surgical History History of appendectomy Heart valve replaced History of hand surgery H/O neck surgery Social History Smoking Status: Current every day smoker tobacco type: cigarettes and cigars Tobacco: How many years used: 62 alcohol intake: current alcohol intake frequency: a few times a week Alcohol type: beer seatbelt use: always ROS ROS ED ROS Narrative Denies recent illness. Review of Systems ROS Unobtainable: Denies due to encephalopathy Constitutional Constitutional ED: Denies chills or fever(s) Eyes Eyes: Denies blurry vision ENT ENT ED: Denies ear pain Cardiovascular Cardiovascular: Denies chest pain or palpitations Respiratory/Chest Respiratory/Chest: Reports dyspnea and other Details: Chronic dyspnea due to COPD. Gastrointestinal Gastrointestinal: Denies abdominal pain Genitourinary Genitourinary ED: Denies dysuria or hematuria Musculoskeletal Musculoskeletal: Denies arthralgias or back pain Integumentary Denies abscess or Abrasions Neurologic Neurologic: Denies headache(s), paresthesias or weakness Psychiatric Psychiatric: Denies anxiety or depression Endocrine Endocrinology: Denies polydipsia Hematologic/Lymphatic Hematologic/Lymphatic: Denies easy bleeding Allergic/Immunologic Allergic/Immunologic ED: Denies mouth swelling, tongue swelling or urticaria EXAM Physical Exam Narrative Exam Narrative: 73-year-old male vital signs stable afebrile. Pulse ox 100% on oxygen. H EENT exam unremarkable. Neck nontender. Lungs few scattered expiratory wheezes. No rales or rhonchi. Heart regular rhythm rate about 85 no murmur. Chest wall ribs nontender. Abdomen soft nontender. Moving all 4 extremities. Left foot lateral aspect lateral to the fifth or small toe metatarsal is about a $0.50 piece sized wound. Minimal redness. He has normal touch sensation. Calf is nontender nonswollen. No streaking. No inguinal lymphadenopathy. Patient is awake and alert. Answering questions following commands. No focal motor deficits. Const Vital Signs: 07/06/23 10:25 07/06/23 11:42 07/06/23 11:42 Temperature 97.2 F L Temperature Source Temporal Pulse Rate 85 75 Respiratory Rate 18 16 Blood Pressure 99/69 Blood Pressure Mean 79 Pulse Ox 100 99 Oxygen Delivery Method Room Air Nasal Cannula Oxygen Flow Rate (L/min) 3 Positive well nourished and well developed; Negative for obese, cachectic, contractures or unkempt General Appearance ED: well developed and NAD; Negative for unkempt, cachectic or contractures Nutritional Appearance: Negative for cachectic or obese HEENT Reports moist mucous membranes normocephalic and atraumatic; Negative for trauma or tenderness Eyes PERRL General Eye ED: Negative for other Neck full ROM and supple Thyroid: Negative for tender Lymph Lymphatic: Negative for other Chest Wall inspection of chest normal and palpation of chest normal Chest: Negative for other Resp normal respiratory effort, no retractions and No clear to auscultation bilaterally Resp Narrative: Few scattered expiratory wheezes. Auscultation: wheezes Percussion: Negative for other Cardio regular rate, regular rhythm, S1 normal heart sound, S2 normal heart sound and no murmurs Rate: Negative for bradycardia or tachycardic Rhythm: Negative for abnormal rhythm Bruits: Negative for other GI non-tender, non-distended and no masses Inspection: Negative for abdominal distention Auscultation: normoactive bowel sounds Palpation: soft; Negative for tender, guarding or rebound tenderness present Bladder / Kidney Exam: No other Back/Spine no CVA tenderness General Back: Negative for CVA tenderness Cervical Spine: Negative for cervical spine tenderness Thoracic Spine / Upper Back: Negative for thoracic spinal tenderness Lumbar Spine / Lower Back: Negative for lumbar spinal tenderness Extremity full ROM; Negative for normal to inspection Extremity Narrative: Chronic wound left lateral foot midportion of metatarsal about the size of 52nd piece. The skin and subcu tissue. Minimal redness. Currently no pus. No lymphangitic streaking. No inguinal lymphadenopathy General Extremety ED: Negative for cyanosis General Extremity: Negative for cyanosis Neuro oriented x3, CN's II-XII intact bilaterally and moves all extremities Sensorium / Orientation: alert, oriented to person, oriented to place and oriented to time; Negative for orientation impaired or confused Psych mental status grossly normal Appearance: Negative for unkempt Mood & Affect: Negative for anxious Skin No no wounds Trauma: Negative for abrasion or laceration MDM MDM MDM Narrative Medical decision making narrative: 73-year-old male history of COPD on oxygen. On blood thinner Eliquis due to prior DVT. Presents due to her chronic left foot wound. I spoke to his sieve maker, Dr. Guaman, he would like the patient have x-ray screening labs started on IV antibiotics and admitted to hospitalist for medical clearance for surgery. Repeat exam patient doing well at 12 PM. He was given morphine for his foot pain. I have the hospitalist on page for admission. History & Record Review Discussion w/independent historian: Patient and Family Additional record(s) reviewed:: Prior inpatient record, Prior outpatient record, Prior ED visit and Prior labs Lab Data Attestation: I reviewed the patient's lab results. Lab results narrative: CBC shows a white count 10.2. H&H 9.8 and 32.8. History of chronic anemia. Platelets 409. Sed rate elevated 26. CRP is elevated 68. Electrolytes show gap 2. BUN and creatinine at 36 and 2.3. Glucose 86. His anemia is worse. His kidney function is his baseline. Labs: Laboratory Results - last 24 hr 07/06/23 11:20 WBC 10.2 RBC 3.40 L Hgb 9.8 L Hct 32.8 L MCV 96.5 H MCH 28.8 MCHC 29.9 L RDW Std Deviation 53.2 H RDW Coeff of Meek 15.0 H Plt Count 409 MPV 9.7 Immature Gran % (Auto) 1.200 H Neut % (Auto) 73.0 H Lymph % (Auto) 15.6 L [place] % (Auto) 7.2 Eos % (Auto) 2.6 Baso % (Auto) 0.4 Absolute Neuts (auto) 7.4 Absolute Lymphs (auto) 1.59 Nucleated RBC % 0 ESR 26 H Sodium 137 Potassium 5.1 Chloride 105 Carbon Dioxide 30.0 Anion Gap 2 L BUN 36 H Creatinine 2.33 H Estim Creat Clear Calc 27.80 Est GFR (MDRD) Af Amer 36 L Est GFR (MDRD) Non-Af 30 L BUN/Creatinine Ratio 15.5 Glucose 86 Calcium 9.9 C-React Prot Ext Range 68.80 H Radiography Chest X-Ray - ED: 1 View, Read by ED Physician, Read by Radiologist, Normal, Heart, Mediastinum, Bony Structures and No Acute Disease Diagnostic Testing: Clinical Impression(s) from Imaging Studies Foot X-Ray 07/06/23 10:50 IMPRESSION: Soft tissue swelling along the dorsum of the forefoot. No demonstrated fracture. Electronically Signed: Juan Jose Nicholson MD at 11:39 EDT , Chest X-Ray 07/06/23 11:15 IMPRESSION: No acute cardiopulmonary abnormality. COPD. Electronically Signed: Geraldo Jimenez MD at 11:40 EDT , Left foot x-ray, 3 views, interpreted both by myself and the radiologist shows no acute abnormality. No fracture. Minimal soft tissue swelling. No obvious osteomyelitis. Chest x-ray, portable, single view shows no acute abnormality. Chronic changes. Normal cardiac silhouette. Normal lung wu. Bilateral shoulder prostheses. Rhythm Strip Rhythm Strip: Sinus Rhythm Rate: 82 Ectopy: None EKG Initial EKG: Attestation: I personally reviewed and interpreted this EKG as follows: Interpretation: Sinus Rhythm and No Acute Injury Pattern Comments: Normal sinus rhythm rate 82 no acute signs of VT or ischemia. Discharge Plan Triage Chief Complaint: Wound ED Provider: Bernabe Barkley Dx/Rx/DC Orders Clinical Impression: Wound of left foot, History of COPD, Chronic anticoagulation, Osteomyelitis Prescriptions: No Action prednisone 10 mg tablet 10 mg PO DAILY 90 Days Qty: 90 3RF folic acid 400 mcg tablet 0.4 mg PO DAILY (DME) PEP device See Rx Instructions .ROUTE .MEDSUPPLY Qty: 1 0RF Rx Instructions: with training cyanocobalamin (vitamin B-12) [Vitamin B-12] 100 mcg tablet 100 mcg PO DAILY Patient Comments: TAKE 1 TABLET BY MOUTH EVERY DAY aspirin 81 MG tablet,chewable 81 mg PO DAILY@0800 Patient Comments: [facility] budesonide-formoterol [Symbicort] 1 INHALER inhaler 2 puff PO BID Patient Comments: COPD metoprolol tartrate 50 MG tablet 50 mg PO BID apixaban 5 MG tablet 5 mg PO BID lisinopril 20 MG tablet 20 mg PO DAILY albuterol sulfate 18 GM HFA aerosol inhaler 2 puff inhalation Q4H PRN PRN (Reason: Sob &/Or Wheezing) pravastatin 10 mg tablet 10 mg PO QHS Patient Comments: TAKE 1 TABLET BY MOUTH EVERY DAY buspirone 10 mg tablet 15 mg PO TID Patient Comments: TAKE ONE TABLET BY MOUTH TWICE A DAY cholecalciferol (vitamin D3) [Vitamin D3] 25 mcg (1,000 unit) capsule 25 mcg PO DAILY oxycodone-acetaminophen [Percocet] 5-325 mg tablet 1 tab PO Q6H PRN (Reason: pain) 7 Days Qty: 28 0RF oxycodone-acetaminophen [Percocet] 5-325 mg tablet 1 tab PO Q6H PRN (Reason: pain) 7 Days Qty: 28 0RF sucralfate [Carafate] 1 gram tablet 1 g PO TID 30 Days Qty: 90 2RF ipratropium-albuterol 0.5 mg-3 mg(2.5 mg base)/3 mL solution for nebulization 3 ml inhalation Q4H PRN (Reason: shortness of breath or wheezing) Qty: 540 3RF Primary Care Provider: Cherelle Cutler Referrals: Cherelle Cutler DO [Primary Care Provider] - Print Language: Kenyan Disposition Disposition: Acute Care Hospital [facility]
--- NOTE | 2023-07-06 11:15 | RAD_ITS ---
EXAM: XR CHEST, 1 VIEW CLINICAL INDICATION: pre-op TECHNIQUE: Frontal view of the chest. COMPARISON: XR Chest dated 06/15/2023 FINDINGS: LUNGS AND PLEURAL SPACES: Hyperinflation suggesting emphysema. No airspace opacification of the lungs. HEART: Normal heart size. MEDIASTINUM: No mediastinal or hilar mass. BONES/JOINTS: Bilateral shoulder prostheses are in place. RAD/Chest 1 View (Portable) IMPRESSION: No acute cardiopulmonary abnormality. COPD. Electronically Signed: Geraldo Jimenez MD at 11:40 EDT ,
[2023-07-06] MEDS: Clindamycin 900 MG/50 ML BAG 75 MG IV (11:34)
[2023-07-06 11:36] LABS: Erythrocyte Sedimentation Rate 26 mm/hr (0-20)
[2023-07-06 11:37] LABS: Absolute Lymphocyte Count 1.59 X10^3/uL (0.83-4.51); Absolute Neutrophil Count 7.4 X10^3/uL (2.0-7.7); Basophil# 0.04 X10^3/uL; Basophil% 0.4 % (0-1); Eosinophil# 0.26 X10^3/uL; Eosinophils% 2.6 % (0-5); Hematocrit 32.8 % (40-54); Hemoglobin 9.8 g/dL (13.0-16.5); Lymphocyte # 1.59 X10^3/ul (0.83-4.51); Lymphocyte % 15.6 % (19-41); Mean Corp Hgb Conc 29.9 g/dL (32-36); Mean Corpuscular Hgb 28.8 pg (27.0-32.0); Mean Corpuscular Volume 96.5 fL (80-94); Mean Platelet Vol. 9.7 fl (6.2-12.0); Monocyte# 0.73 X10^3/uL; Monocyte% 7.2 % (0-10); NRBC Flagged by Analyzer 0 % (0-5); Neutrophil # 7.44 X10^3/uL (2.7-7.7); Platelet Count 409 K/mm3 (150-450); RBC Distribution Width SD 53.2 fl (35.1-43.9); White Blood Count 10.2 K/mm3 (4.4-11.0)
[2023-07-06 11:40] LABS: Anion Gap 2 (5-15); BUN 36 mg/dL (7-18); BUN/Creat Ratio 15.5 RATIO (10-20); Calcium,Total 9.9 mg/dL (8.5-10.1); Chloride 105 mmol/L (98-107); Creatinine, Serum 2.33 mg/dL (0.70-1.30); EST Glomerular Filtration Rate 30 mL/min (>60); Est Glom Filt Rate - Afr Amer 36 mL/min (>60); Glucose 86 mg/dL (74-106); Potassium 5.1 mmol/L (3.5-5.1); Sodium Level 137 mmol/L (136-145)
[2023-07-06] MEDS: Ipratropium/Albuterol Sulfate 3 ML AMPUL.NEB INHALATION (11:41)
[2023-07-06] MEDS: Ondansetron 4 MG/2 ML Vial IV (11:54)
[2023-07-06] MEDS: Morphine 4 MG/ML Syringe IV (11:54)
--- NOTE | 2023-07-06 12:59 | NURSING ---
MED SURG [facility] INFECTED LEFT FOOT WOUND, COPD, PENDING FOOT SURGERY, ANTICOAGULATED
--- NOTE | 2023-07-06 13:19 | PCM.HP.STD ---
HPI - General General Date of Admission: 07/06/23 Date of Service: 07/06/23 Chief Complaint: Left foot wound HPI Narrative DARRYN ROMAN, is a 73 M who presented to the emergency department at [facility] on 07/06/[address] Guaman from podiatry due to a chronic left foot wound that has now had a positive bone scan for osteomyelitis. He has been seeing podiatry for some time but unfortunately his wound has progressed and there is now evidence of bone infection. He asked that he come the emergency department and be admitted and placed on IV antibiotics with clearance for surgery. The patient is on chronic anticoagulation with Eliquis due to history of DVT. He also is on oxygen at baseline 3 L and currently no signs of exacerbation but does follow with pulmonary medicine as outpatient. He reports that he was told by pulmonary medicine they would not clear him until he has a 6-minute walk test but he states he is unable to do a 6-minute walk test due to the fact that he has inability to do any significant weightbearing on that foot secondary to the infection. He also was seen recently by vascular surgery on 07/01/2023 it was felt that he does not any need any intervention vascularly prior to surgery for his foot wound they will continue to follow as an outpatient and possibly refer for potential consideration of STEVENS flow however that can be pursued at a later date. Patient indicated that he would not have come to the emergency department if not instructed to do so by podiatry. He has been feeling well otherwise. Vital signs at the time of presentation showed a temperature of 97.2, heart rate 85, respiratory was 18, blood pressure was 99/69 with a pulse ox of 100% on 3 L nasal cannula. His CBC shows a chronic anemia that is down slightly from previous at 9.8 but is macrocytic with an MCV of 96.5. Platelet count was normal. His differential is normal. ESR was 26 with a CRP of 68.8. His chemistry panel showed normal electrolytes however he does have an elevated BUN and creatinine at 36 and 2.33 respectively however these appear to be stable and close to his baseline. He does have known CKD stage IIIb. Foot x-ray showed soft tissue swelling along the dorsum of the forefoot but no fracture was noted. Chest x-ray showed no acute cardiopulmonary process however hyperinflation was noted consistent with previous and suggestive of emphysema. Bone scan from 06/18/2023 was reviewed and is consistent with an infectious process involving the base of the fifth metatarsal. His EKG was sinus rhythm with a rate of 82 and no ectopy and no ST-T wave changes concerning for acute ischemia and no change from previous. He was given IV antibiotics and request for admission was made. [facility] Medical History Insulin resistance Hx of blood clots HTN (hypertension) Asthma COPD (chronic obstructive pulmonary disease) Tobacco dependence syndrome COLD (chronic obstructive lung disease) Home Medications ?Medication ?Instructions ?Recorded ?Last Taken ?Type aspirin 81 mg chewable tablet 81 mg PO DAILY@0800 HEART HEALTH 02/03/14 07/06/23 History budesonide-formoterol HFA 160 2 puff PO BID COPD 02/03/14 07/06/23 History mcg-4.5 mcg/actuation aerosol inhaler (Symbicort) albuterol sulfate 90 mcg/actuation 2 puff inhalation Q4H PRN PRN Sob 08/24/18 Unknown History aerosol inhaler &/Or Wheezing apixaban 5 mg tablet 5 mg PO BID BLOOD THINNER 08/24/18 07/06/23 History lisinopril 20 mg tablet 20 mg PO DAILY bp 08/24/18 07/06/23 History metoprolol tartrate 50 mg tablet 50 mg PO BID HTN 08/24/18 07/06/23 History pravastatin 10 mg tablet 10 mg PO QHS HIGH CHOLESTEROL 10/04/22 07/05/23 History sucralfate 1 gram tablet (Carafate) 1 g PO TID GASTRIC ULCERS 30 days 10/24/22 07/06/23 Rx #90 tabs PEP device #1 ea 11/06/22 Unknown Rx folic acid 400 mcg tablet 0.4 mg PO DAILY DIETARY SUPPLEMENT 11/06/22 07/06/23 History prednisone 10 mg tablet 10 mg PO DAILY COPD 90 days #90 01/30/23 07/06/23 Rx tabs ipratropium 0.5 mg-albuterol 3 mg 3 ml inhalation Q4H PRN shortness 03/18/23 07/06/23 Rx (2.5 mg base)/3 mL nebulization of breath or wheezing #540 mL soln buspirone 10 mg tablet 15 mg PO TID DEPRESSION/ANXIETY 04/16/23 07/06/23 History cyanocobalamin (vitamin B-12) 100 100 mcg PO DAILY VITAMIN SUPPLEMENT 04/16/23 07/06/23 History mcg tablet (Vitamin B-12) cholecalciferol (vitamin D3) 25 25 mcg PO DAILY DIETARY SUPPLEMENT 05/27/23 07/06/23 History mcg (1,000 unit) capsule (Vitamin D3) oxycodone-acetaminophen 5 mg-325 1 tab PO Q6H PRN pain 7 days #28 06/20/23 Unknown Rx mg tablet (Percocet) tabs naproxen sodium 220 mg capsule 880 mg PO BID PRN PAIN 07/01/23 Unknown History (Aleve) Allergy/AdvReac Type Severity Reaction Status Date / Time azithromycin (From Zithromax) Allergy Swelling Verified 07/06/23 10:25 Penicillins Allergy Hives Verified 07/06/23 10:25 shellfish derived Allergy Hives Verified 07/06/23 10:25 venom-honey bee (bee venom Allergy Hives Verified 07/06/23 10:25 (honey bee)) chocolate flavor AdvReac Diarrhea Verified 07/06/23 10:25 Family History Other Asthma CAD (coronary artery disease) CVA (cerebral vascular accident) Cancer Diabetes Heart disease Hypertension Myocardial infarction Surgical History History of appendectomy Heart valve replaced History of hand surgery H/O neck surgery Social History Smoking Status: Light Smoker (<10/day) Tobacco: How many years used: 62 alcohol intake: current alcohol intake frequency: a few times a week Alcohol type: beer seatbelt use: always ROS Constitutional Constitutional: Denies anorexia, change in weight, chills, fatigue, fever(s), malaise, night sweats, weakness or other Eyes Eyes: Denies blurry vision, change in eye color, change in vision, discharge from eye(s), double vision, erythema, eye pain, loss of vision or other ENT HEENT: Reports abnormal hearing and hearing loss; Denies dysphagia, ear pain, epistaxis, headache(s), nasal congestion, nasal discharge, post nasal drip, sinus pressure, sore throat or other Cardiovascular Cardiovascular: Denies chest pain, claudication, dyspnea on exertion, edema, lightheadedness, orthopnea, palpitations, paroxysmal nocturnal dyspnea, rapid heart rate, syncope or other Respiratory/Chest Respiratory/Chest: Reports cough and shortness of breath with exertion; Denies dyspnea, excessive phlegm production, hemoptysis, productive cough, shortness of breath at rest, wheezing or other Gastrointestinal Gastrointestinal: Denies abdominal pain, coffee ground emesis, constipation, diarrhea, dyspepsia, hematemesis, hematochezia, loose stools, melena, nausea, vomiting or other Genitourinary Genitourinary: Denies burning urination, difficulty urinating, dysuria, hematuria, nocturia, urinary frequency, urinary hesitancy, urinary incontinence, urinary urgency or other Musculoskeletal Musculoskeletal: Denies arthralgias, back pain, joint pain, joint stiffness, joint swelling, myalgias, neck pain or other Neurologic Neurologic: Reports abnormal gait; Denies abnormal speech, confusion, disequilibrium, dizziness, focal weakness, headache(s), numbness, paresthesias, seizure-like activity, seizures, syncope, tingling, tremor(s) or other Psychiatric Psychiatric: Denies anxiety, depression, homicidal ideation, suicidal ideation or other Endocrine Endocrinology: Denies change in body appearance, cold intolerance, excessive sweating, heat intolerance, polydipsia, polyuria or other Hematologic/Lymphatic Hematologic/Lymphatic: Denies anemia, easy bleeding, easy bruising, lymphadenopathy or other Allergic/Immunologic Allergic/Immunologic: Denies rhinitis, hives, eczemia, asthma or other Vital Signs Vital Signs Vital Signs: 07/06/23 10:25 07/06/23 11:42 07/06/23 11:42 Temperature 97.2 F L Temperature Source Temporal Pulse Rate 85 75 Respiratory Rate 18 16 Blood Pressure 99/69 Blood Pressure Mean 79 Pulse Ox 100 99 Oxygen Delivery Method Room Air Nasal Cannula Oxygen Flow Rate (L/min) 3 07/06/23 12:17 07/06/23 12:25 Temperature 98 F Temperature Source Pulse Rate 82 80 Respiratory Rate 18 18 Blood Pressure 99/60 94/60 Blood Pressure Mean 73 71 Pulse Ox 97 99 Oxygen Delivery Method Room Air Oxygen Flow Rate (L/min) Weight Weight: 67.6 kg Body Mass Index (BMI) 22.0 Physical Exam Const alert, oriented x3, no apparent distress and average body habitus; Negative for healthy appearing or well nourished Constitutional Narrative: Pleasant, older, white male, sitting up in bed on his baseline oxygen of 3 L, appears comfortable and nontoxic, talking to dietitian on my arrival, very jovial and friendly General Appearance: cooperative HEENT normocephalic, head/scalp atraumatic and moist oral mucous membranes HEENT Narrative: Mild to moderate hearing loss, dentition is poor, Mallampati is 2-3, no thrush Eyes PERRL, EOMs intact bilaterally and conjunctivae normal Eyes Narrative: No scleral icterus Neck no lymphadenopathy and supple Neck Narrative: Trachea midline, no thyroid enlargement Resp normal respiratory effort, no retractions, no use of accessory muscles and clear to auscultation bilaterally Resp Narrative: Markedly diminished diffusely but no adventitious sounds noted Auscultation: Negative for rales, rhonchi or wheezes Cardio regular rate, regular rhythm, S1 normal heart sound, S2 normal heart sound, no murmurs, no rub, no gallops and no clicks GI normal to inspection, nondistended, normoactive bowel sounds, soft to palpation and non-tender Extremity no clubbing, cyanosis or edema Extremity Narrative: Cap refill is 2+ bilateral lower extremities Skin No no wounds, skin turgor normal, no jaundice, no petechiae and no mottling Skin Narrative: Large dressing over left foot which is new and will leave in place for now and review images from wound care Neuro oriented x3, moves all extremities and no focal motor deficits Speech: speech normal Psych affect normal Psych Narrative: Very pleasant, interacts appropriately, jovial Results Lab / Micro Data 07/06/23 11:20 07/06/23 11:20 Labs: Laboratory Results - last 24 hr 07/06/23 11:20: WBC 10.2, RBC 3.40 L, Hgb 9.8 L, Hct 32.8 L, MCV 96.5 H, MCH 28.8, MCHC 29.9 L, RDW Std Deviation 53.2 H, RDW Coeff of Meek 15.0 H, Plt Count 409, MPV 9.7, Immature Gran % (Auto) 1.200 H, Neut % (Auto) 73.0 H, Lymph % (Auto) 15.6 L, [place] % (Auto) 7.2, Eos % (Auto) 2.6, Baso % (Auto) 0.4, Absolute Neuts (auto) 7.4, Absolute Lymphs (auto) 1.59, Nucleated RBC % 0, ESR 26 H, Sodium 137, Potassium 5.1, Chloride 105, Carbon Dioxide 30.0, Anion Gap 2 L, BUN 36 H, Creatinine 2.33 H, Estim Creat Clear Calc 27.80, Est GFR (MDRD) Af Amer 36 L, Est GFR (MDRD) Non-Af 30 L, BUN/Creatinine Ratio 15.5, Glucose 86, Calcium 9.9, C-React Prot Ext Range 68.80 H Rhythm Strip Rhythm Strip: Sinus Rhythm Rate: 82 Ectopy: None Imaging Radiology Impression Foot X-Ray 07/06/23 10:50 IMPRESSION: Soft tissue swelling along the dorsum of the forefoot. No demonstrated fracture. Electronically Signed: Juan Jose Nicholson MD at 11:39 EDT , Chest X-Ray 07/06/23 11:15 IMPRESSION: No acute cardiopulmonary abnormality. COPD. Electronically Signed: Geraldo Jimenez MD at 11:40 EDT , Assessment & Plan Assessment/Plan (1) Wound of left foot: (2) Acute osteomyelitis of left foot: (3) Acute on chronic anemia: (4) Chronic anticoagulation: (5) CKD stage 3b, GFR 30-44 ml/min: PLAN: Plan Left foot wound with acute osteomyelitis -Given clindamycin the emergency department -Will start levofloxacin and vancomycin for now -Cultures are pending -Plan is for amputation of the fifth metatarsal head--> Dr. Guaman is consulted -Recently seen by vascular surgery and no need for any acute intervention prior to surgical intervention by podiatry -Scheduled Tylenol 1 g every 8 -As needed oxycodone -As needed Dilaudid -Nonweightbearing left lower extremity for now -PT/OT consultation after surgery -May need infectious disease involvement depending on culture results -Hold Eliquis and aspirin perioperatively -Preoperative EKG without any changes or concerning findings -Will consult pulmonary medicine for pulmonary optimization preoperatively Acute on chronic anemia -Patient with history of GI bleed -Most recent hemoglobin here on 06/15/2023 was 11.4 and today is 9.8 -Iron studies are somewhat suggestive of iron deficiency -Guaiac is pending -Will consult GI -Start Protonix 40 mg IV twice daily -Continue home Carafate -Patient has been using naproxen at home for pain CKD stage IIIb -Baseline serum creatinine in the last several months has been between 2.3 and 2.6 -Currently 2.33 at the time of admission -No acute needs for dialysis -Will continue to monitor -Hold lisinopril -Would recommend discontinuation of Aleve at the time of discharge -Refer to nephrology after discharge History of VTE -Apixaban on hold in preparation for surgery as well as acute anemia -Restart when medically stable to do so Chronic hypoxic respiratory failure secondary to COPD -Patient is still smoking about a half a pack of cigarettes a day however he had been smoking up to 4 packs of cigarettes a day previously -Continue home inhalers -As needed albuterol -Incentive spirometry -On 3 L at baseline and stable on this at this time -Pulmonary consultation for assistance with preoperative optimization -Would suggest block with twilight sedation for surgery and avoid mechanical ventilation -Continue chronic prednisone Hypertension -Continue home metoprolol -Hold lisinopril perioperatively as well as with elevated serum creatinine -Monitor and if creatinine stable will be able to restart lisinopril after surgery -As needed hydralazine for systolic pressure greater than 160 History of gastric ulcers -Continue Carafate -IV PPI twice daily for now until GI can evaluate the patient further -Discontinue home Aleve Hyperlipidemia -Continue home pravastatin Tobacco abuse -Patient still smoking -nicotine patch available -Recommend cessation DVT prophylaxis -SCDs -Chemoprophylaxis contraindicated due to upcoming surgery and anemia CODE STATUS -Full code is verified with the patient prior to admission Charges/Coding Visit Charges Inpatient E&M: 89014 Init Hosp L2
--- NOTE | 2023-07-06 14:44 | WOUNDNOTE ---
wound photo: left lateral foot
[2023-07-06 15:29] LABS: Ferritin 205 ng/mL (26-388); Iron 42 ug/dL (65-175); Iron Binding Capacity,Total 314 ug/dL (250-450); PERCENT IRON SATURATION 13.4 % (15.0-55.0)
--- NOTE | 2023-07-06 15:47 | EX.PCM.CON.G ---
HPI Consult Data Date of Consult: 07/06/23 HPI Narrative Reason for Consultation: Anemia HPI Narrative: DARRYN ROMAN, is a 73-year-old male with chronic left foot wound for 2 months. Not improving. Sent in by podiatry to have medical clearance for admission for left foot surgery. He has a chronic left foot wound that has now had a positive bone scan for osteomyelitis. He has been seeing podiatry for some time but unfortunately his wound has progressed and there is now evidence of bone infection. He asked that he come the emergency department and be admitted and placed on IV antibiotics with clearance for surgery. The patient is on chronic anticoagulation with Eliquis due to history of DVT. He also is on oxygen at baseline 3 L and currently no signs of exacerbation but does follow with pulmonary medicine as outpatient. He reports that he was told by pulmonary medicine they would not clear him until he has a 6-minute walk test but he states he is unable to do a 6-minute walk test due to the fact that he has inability to do any significant weightbearing on that foot secondary to the infection. He also was seen recently by vascular surgery on 07/01/2023. I was asked to see him due to need for anticoagulation and worsening anemia. He has admitted to some dark stools. He does not know if he has had a colonoscopy. [facility] Medical History Insulin resistance Hx of blood clots HTN (hypertension) Asthma COPD (chronic obstructive pulmonary disease) Tobacco dependence syndrome COLD (chronic obstructive lung disease) Home Medications ?Medication ?Instructions ?Recorded ?Last Taken ?Type aspirin 81 mg chewable tablet 81 mg PO DAILY@0800 HEART HEALTH 02/03/14 07/06/23 History budesonide-formoterol HFA 160 2 puff PO BID COPD 02/03/14 07/06/23 History mcg-4.5 mcg/actuation aerosol inhaler (Symbicort) albuterol sulfate 90 mcg/actuation 2 puff inhalation Q4H PRN PRN Sob 08/24/18 Unknown History aerosol inhaler &/Or Wheezing apixaban 5 mg tablet 5 mg PO BID BLOOD THINNER 08/24/18 07/06/23 History lisinopril 20 mg tablet 20 mg PO DAILY bp 08/24/18 07/06/23 History metoprolol tartrate 50 mg tablet 50 mg PO BID HTN 08/24/18 07/06/23 History pravastatin 10 mg tablet 10 mg PO QHS HIGH CHOLESTEROL 10/04/22 07/05/23 History sucralfate 1 gram tablet (Carafate) 1 g PO TID GASTRIC ULCERS 30 days 10/24/22 07/06/23 Rx #90 tabs PEP device #1 ea 11/06/22 Unknown Rx folic acid 400 mcg tablet 0.4 mg PO DAILY DIETARY SUPPLEMENT 11/06/22 07/06/23 History prednisone 10 mg tablet 10 mg PO DAILY COPD 90 days #90 01/30/23 07/06/23 Rx tabs ipratropium 0.5 mg-albuterol 3 mg 3 ml inhalation Q4H PRN shortness 03/18/23 07/06/23 Rx (2.5 mg base)/3 mL nebulization of breath or wheezing #540 mL soln buspirone 10 mg tablet 15 mg PO TID DEPRESSION/ANXIETY 04/16/23 07/06/23 History cyanocobalamin (vitamin B-12) 100 100 mcg PO DAILY VITAMIN SUPPLEMENT 04/16/23 07/06/23 History mcg tablet (Vitamin B-12) cholecalciferol (vitamin D3) 25 25 mcg PO DAILY DIETARY SUPPLEMENT 05/27/23 07/06/23 History mcg (1,000 unit) capsule (Vitamin D3) oxycodone-acetaminophen 5 mg-325 1 tab PO Q6H PRN pain 7 days #28 06/20/23 Unknown Rx mg tablet (Percocet) tabs naproxen sodium 220 mg capsule 880 mg PO BID PRN PAIN 07/01/23 Unknown History (Aleve) Allergy/AdvReac Type Severity Reaction Status Date / Time azithromycin (From Zithromax) Allergy Swelling Verified 07/07/23 14:08 Penicillins Allergy Hives Verified 07/07/23 14:08 shellfish derived Allergy Hives Verified 07/07/23 14:08 venom-honey bee (bee venom Allergy Hives Verified 07/06/23 10:25 (honey bee)) chocolate flavor AdvReac Diarrhea Verified 07/06/23 10:25 Family History Other Asthma CAD (coronary artery disease) CVA (cerebral vascular accident) Cancer Diabetes Heart disease Hypertension Myocardial infarction Surgical History History of appendectomy Heart valve replaced History of hand surgery H/O neck surgery Social History Smoking Status: Light Smoker (<10/day) Tobacco: How many years used: 62 alcohol intake: current alcohol intake frequency: a few times a week Alcohol type: beer seatbelt use: always ROS Constitutional Constitutional: Denies anorexia, change in weight, chills, fatigue, fever(s), malaise, night sweats, weakness or other Eyes Eyes: Denies blurry vision, change in eye color, change in vision, discharge from eye(s), double vision, erythema, eye pain, loss of vision or other ENT HEENT: Reports abnormal hearing and hearing loss; Denies dysphagia, ear pain, epistaxis, headache(s), nasal congestion, nasal discharge, post nasal drip, sinus pressure, sore throat or other Cardiovascular Cardiovascular: Denies chest pain, claudication, dyspnea on exertion, edema, lightheadedness, orthopnea, palpitations, paroxysmal nocturnal dyspnea, rapid heart rate, syncope or other Respiratory/Chest Respiratory/Chest: Reports cough and shortness of breath with exertion; Denies dyspnea, excessive phlegm production, hemoptysis, productive cough, shortness of breath at rest, wheezing or other Gastrointestinal Gastrointestinal: Denies abdominal pain, coffee ground emesis, constipation, diarrhea, dyspepsia, hematemesis, hematochezia, loose stools, melena, nausea, vomiting or other Genitourinary Genitourinary: Denies burning urination, difficulty urinating, dysuria, hematuria, nocturia, urinary frequency, urinary hesitancy, urinary incontinence, urinary urgency or other Musculoskeletal Musculoskeletal: Denies arthralgias, back pain, joint pain, joint stiffness, joint swelling, myalgias, neck pain or other Neurologic Neurologic: Reports abnormal gait; Denies abnormal speech, confusion, disequilibrium, dizziness, focal weakness, headache(s), numbness, paresthesias, seizure-like activity, seizures, syncope, tingling, tremor(s) or other Psychiatric Psychiatric: Denies anxiety, depression, homicidal ideation, suicidal ideation or other Endocrine Endocrinology: Denies change in body appearance, cold intolerance, excessive sweating, heat intolerance, polydipsia, polyuria or other Hematologic/Lymphatic Hematologic/Lymphatic: Denies anemia, easy bleeding, easy bruising, lymphadenopathy or other Allergic/Immunologic Allergic/Immunologic: Denies rhinitis, hives, eczemia, asthma or other Physical Exam Const alert, oriented x3 and no apparent distress General Appearance: cooperative HEENT normocephalic and head/scalp atraumatic Neck supple and No nodes Resp normal air movement and clear to auscultation bilaterally Cardio regular rate and regular rhythm GI soft to palpation, non-tender and non-distended Extremity General Extremity: Negative for edema Skin Skin Narrative: L foot wrapped, reviewed wound photo Neuro CN's II-XII intact bilaterally Medical Records Data Medical Nutrition Assessment Dietitian: Malnutrition Criteria Met Start: 07/06/23 15:50 Freq: Status: Active Protocol: Document 07/06/23 15:50 SLA (Rec: 07/06/23 15:50 [facility] ) Nutrition Malnutrition Evidence of Malnutrition Exists Yes Malnutrition (severe): Acute Illness/Injury Evidenced By Suboptimal Energy Intake ( Severe),Weight Loss (Severe), Physical Changes (Mild) Intake Problem Increased Nutrient Needs (specify) Etiology protein related to skin status Signs/Symptoms as evidenced by L foot osteomyelitis/wound Status Active Problem Clinical Problem Acute Disease or Injury Related Malnutrition Etiology related to inadequate oral energy intake Signs/Symptoms as evidenced by 8.2% unintentional wt loss, po intake < 50% of est nutritional needs and mild fat /muscle loss in face/arms Status Active Problem Recommendation Dietitian Recommendations/Changes Will liberalize diet to Regular d/t signs/symptoms of malnutrition Will add vanilla/peanut butter ensure plus high protein with lunch Will order Bora bid w/ medpass for increased nutrition if consumed. Lab / Micro Data 07/07/23 05:32 07/07/23 05:32 Labs: Laboratory Results - last 24 hr 07/06/23 14:55: S.aureus Protein A PCR POSITIVE H, MRSA (PCR) Negative 07/07/23 05:32: WBC 7.7, RBC 2.93 L, Hgb 8.6 L, Hct 28.5 L, MCV 97.3 H, MCH 29.4, MCHC 30.2 L, RDW Std Deviation 53.1 H, RDW Coeff of Meek 14.9 H, Plt Count 391, MPV 10.0, Immature Gran % (Auto) 1.200 H, Neut % (Auto) 65.1, Lymph % (Auto) 21.3, Holmes % (Auto) 8.8, Eos % (Auto) 3.0, Baso % (Auto) 0.6, Absolute Neuts (auto) 5.0, Absolute Lymphs (auto) 1.65, Nucleated RBC % 0, PT 15.5 H, INR 1.2, APTT 40.5 H, Sodium 136, Potassium 5.4 H, Chloride 104, Carbon Dioxide 31.0, Anion Gap 1 L, BUN 38 H, Creatinine 1.94 H, Estim Creat Clear Calc 32.85, Est GFR (MDRD) Af Amer 44 L, Est GFR (MDRD) Non-Af 36 L, BUN/Creatinine Ratio 19.6, Glucose 86, Calcium 9.4, Phosphorus 4.7, Magnesium 1.9, Total Bilirubin 0.30, AST 15, ALT 15 L, Alkaline Phosphatase 45, Total Protein 6.0 L, Albumin 2.2 L, Globulin 3.8, Albumin/Globulin Ratio 0.6 L Micro: Microbiology 07/06/23 14:55 Wound - Left Foot Gram Stain - Final 07/06/23 14:55 Wound - Left Foot Wound Culture - Preliminary Staphylococcus aureus Rhythm Strip Rhythm Strip: Sinus Rhythm Rate: 82 Ectopy: None Assessment & Plan Assessment/Plan (1) Wound of left foot: (2) Acute osteomyelitis of left foot: (3) Acute on chronic anemia: (4) Chronic anticoagulation: (5) CKD stage 3b, GFR 30-44 ml/min: PLAN: Plan 73-year-old with left foot wound with acute osteomyelitis also discovered to have acute on chronic anemia patient has a history of GI bleed secondary to peptic ulcer disease and has been on NSAIDs as an outpatient. His hemoglobin was 11.4 and today is down to 8.6. His iron studies are somewhat suggestive of iron deficiency. Therefore if the EGD is negative he will need a colonoscopy. Charges/Coding Visit Charges Inpatient E&M: 65442 Init Hosp L3
[2023-07-06] MEDS: Vancomycin HCl 1,750 MG in 0.9% Normal Saline (500mL Bag) 500 ML 250 MG IV (15:56)
[2023-07-06] MEDS: 0.9% Saline Lock 10 ML Syringe IV (15:56)
[2023-07-06] MEDS: Acetaminophen 500 MG Tablet 1000 MG PO ×2 (15:58→20:32)
[2023-07-06] MEDS: Heparin Injection (Vial) 5,000 UNIT/ML VIAL 5000 UNIT SC ×2 (15:58→20:33)
[2023-07-06 16:25] LABS: M R Staph aureus DNA By PCR Negative (Negative); Probe Check PASS; Specimen Processing Control PASS; Staph aureus DNA By PCR POSITIVE (Negative)
--- NOTE | 2023-07-06 16:42 | CON.PCM_ITS ---
Assessment & Plan Assessment/Plan (1) Acute osteomyelitis of left foot: PLAN: Patient was examined and evaluated. All findings were discussed with the patient. All questions were answered to the patient's satisfaction. Patient was also seen by vascular surgery prior to admission. With the location of the wound the patient has normal flow to the ankle which is sufficient to reasonably expect to heal in a nondiabetic patient. There is also suggested that if there is delayed healing following surgery then vascular would recommend referral to for potential consideration for STEVENS flow. Left foot nonweightbearing three-view radiographs. The bone stock is within normal limits for the patient's age and age. There is evidence of full- thickness ulceration to the lateral fifth metatarsal base with periosteal reaction concerning for osteomyelitis. No additional abnormalities or fractures. Three-phase bone scan of the left foot is positive with findings suggestive of infectious process involving the base of the fifth metatarsal. Recommend infectious disease consultation and recommendations Medicine: On board, medical management and surgical clearance. IV antibiotics Vancomycin and levofloxacin Will plan for surgical intervention in the afternoon if available or Thursday. Plan will be for incision of bone cortex of the fifth metatarsal with bone biopsies of the fourth metatarsal and cuboid, peroneal brevis transfer, application of antibiotic beads, application of Integra bilayer and possible wound VAC application. Please clear the patient medically with recommendations. Please reach out to Dr. Guaman with any questions or concerns. Thank you for the consultation! (2) Non-pressure chronic ulcer of other part of left foot with necrosis of bone: (3) Other specified peripheral vascular diseases: HPI Consult Data Date of Consult: 07/06/23 HPI Narrative Reason for Consultation: Left foot osteomyelitis HPI Narrative: DARRYN ROMAN, is a 73 M who presents to the emergency room at [facility] by direction of Dr. Guaman for admission on 07/06/2023 due to chronic left foot osteomyelitis and ulceration. Patient is well-known to my service and was being treated at the wound care center with multiple excisional debridements and having a triple phase bone scan which showed positive osteomyelitis in the delayed imaging. Patient has a significant past medical history consisting of history of blood clots, hypertension, asthma, COPD, COLD, tobacco dependency syndrome, insulin resistance, CKD stage IIIb. Patient states overall he is doing well. He has been compliant with his dressing changes at home. He was presenting today for admission for surgical clearance through the medicine department for planned surgery during this hospital stay. The patient denies any trauma. He denies any constitutional symptoms at this time. No other pedal complaints at this time. [facility] Medical History Insulin resistance Hx of blood clots HTN (hypertension) Asthma COPD (chronic obstructive pulmonary disease) Tobacco dependence syndrome COLD (chronic obstructive lung disease) Home Medications ?Medication ?Instructions ?Recorded ?Last Taken ?Type aspirin 81 mg chewable tablet 81 mg PO DAILY@0800 HEART HEALTH 02/03/14 07/06/23 History budesonide-formoterol HFA 160 2 puff PO BID COPD 02/03/14 07/06/23 History mcg-4.5 mcg/actuation aerosol inhaler (Symbicort) albuterol sulfate 90 mcg/actuation 2 puff inhalation Q4H PRN PRN Sob 08/24/18 Unknown History aerosol inhaler &/Or Wheezing apixaban 5 mg tablet 5 mg PO BID BLOOD THINNER 08/24/18 07/06/23 History lisinopril 20 mg tablet 20 mg PO DAILY bp 08/24/18 07/06/23 History metoprolol tartrate 50 mg tablet 50 mg PO BID HTN 08/24/18 07/06/23 History pravastatin 10 mg tablet 10 mg PO QHS HIGH CHOLESTEROL 10/04/22 07/05/23 History sucralfate 1 gram tablet (Carafate) 1 g PO TID GASTRIC ULCERS 30 days 10/24/22 07/06/23 Rx #90 tabs PEP device #1 ea 11/06/22 Unknown Rx folic acid 400 mcg tablet 0.4 mg PO DAILY DIETARY SUPPLEMENT 11/06/22 07/06/23 History prednisone 10 mg tablet 10 mg PO DAILY COPD 90 days #90 01/30/23 07/06/23 Rx tabs ipratropium 0.5 mg-albuterol 3 mg 3 ml inhalation Q4H PRN shortness 03/18/23 07/06/23 Rx (2.5 mg base)/3 mL nebulization of breath or wheezing #540 mL soln buspirone 10 mg tablet 15 mg PO TID DEPRESSION/ANXIETY 04/16/23 07/06/23 History cyanocobalamin (vitamin B-12) 100 100 mcg PO DAILY VITAMIN SUPPLEMENT 04/16/23 07/06/23 History mcg tablet (Vitamin B-12) cholecalciferol (vitamin D3) 25 25 mcg PO DAILY DIETARY SUPPLEMENT 05/27/23 07/06/23 History mcg (1,000 unit) capsule (Vitamin D3) oxycodone-acetaminophen 5 mg-325 1 tab PO Q6H PRN pain 7 days #28 06/20/23 Unknown Rx mg tablet (Percocet) tabs naproxen sodium 220 mg capsule 880 mg PO BID PRN PAIN 07/01/23 Unknown History (Aleve) Allergy/AdvReac Type Severity Reaction Status Date / Time azithromycin (From Zithromax) Allergy Swelling Verified 07/06/23 10:25 Penicillins Allergy Hives Verified 07/06/23 10:25 shellfish derived Allergy Hives Verified 07/06/23 10:25 venom-honey bee (bee venom Allergy Hives Verified 07/06/23 10:25 (honey bee)) chocolate flavor AdvReac Diarrhea Verified 07/06/23 10:25 Family History Other Asthma CAD (coronary artery disease) CVA (cerebral vascular accident) Cancer Diabetes Heart disease Hypertension Myocardial infarction Surgical History History of appendectomy Heart valve replaced History of hand surgery H/O neck surgery Social History Smoking Status: Light Smoker (<10/day) Tobacco: How many years used: 62 alcohol intake: current alcohol intake frequency: a few times a week Alcohol type: beer seatbelt use: always Physical Exam Narrative PT, peroneal arteries are biphasic on Doppler. AT and DP are monophasic on Doppler. CFT is 4 seconds. Nonpitting edema appreciated to the left lower extremity. Skin temperature gradient is warm to cool from proximal ankle to distal digits bilateral. Neurological: Light touch intact. Protective sensation is intact. Patient response to painful stimuli. Dermatological: Full-thickness ulceration to the lateral aspect of the left foot with bone exposed. Ulceration measures 3.1 x 1.9 x 0.4 cm. Positive probe to bone, with bone exposed and exposed tendon. Wound base is fibrotic in nature with mild malodor. Periwound erythema which is blanchable, improving. No active drainage at this time. No purulent drainage appreciated. Evidence diffuse xerosis appreciated bilateral lower extremity. Musculoskeletal: Moderate to severe palpatory tenderness appreciated the full- thickness ulceration of the left foot. No pain with calf compression. Const alert, oriented x3 and no apparent distress Medical Records Data Medical Nutrition Assessment Dietitian: Malnutrition Criteria Met Start: 07/06/23 15:50 Freq: Status: Active Protocol: Document 07/06/23 15:50 SLA (Rec: 07/06/23 15:50 SLA ) Nutrition Malnutrition Evidence of Malnutrition Exists Yes Malnutrition (severe): Acute Illness/Injury Evidenced By Suboptimal Energy Intake ( Severe),Weight Loss (Severe), Physical Changes (Mild) Intake Problem Increased Nutrient Needs (specify) Etiology protein related to skin status Signs/Symptoms as evidenced by L foot osteomyelitis/wound Status Active Problem Clinical Problem Acute Disease or Injury Related Malnutrition Etiology related to inadequate oral energy intake Signs/Symptoms as evidenced by 8.2% unintentional wt loss, po intake < 50% of est nutritional needs and mild fat /muscle loss in face/arms Status Active Problem Recommendation Dietitian Recommendations/Changes Will liberalize diet to Regular d/t signs/symptoms of malnutrition Will add vanilla/peanut butter ensure plus high protein with lunch Will order Bora bid w/ medpass for increased nutrition if consumed. Lab / Micro Data 07/06/23 11:20 07/06/23 11:20 Labs: Laboratory Results - last 24 hr 07/06/23 11:20: WBC 10.2, RBC 3.40 L, Hgb 9.8 L, Hct 32.8 L, MCV 96.5 H, MCH 28.8, MCHC 29.9 L, RDW Std Deviation 53.2 H, RDW Coeff of Meek 15.0 H, Plt Count 409, MPV 9.7, Immature Gran % (Auto) 1.200 H, Neut % (Auto) 73.0 H, Lymph % (Auto) 15.6 L, [place] % (Auto) 7.2, Eos % (Auto) 2.6, Baso % (Auto) 0.4, Absolute Neuts (auto) 7.4, Absolute Lymphs (auto) 1.59, Nucleated RBC % 0, ESR 26 H, Sodium 137, Potassium 5.1, Chloride 105, Carbon Dioxide 30.0, Anion Gap 2 L, BUN 36 H, Creatinine 2.33 H, Estim Creat Clear Calc 27.80, Est GFR (MDRD) Af Amer 36 L, Est GFR (MDRD) Non-Af 30 L, BUN/Creatinine Ratio 15.5, Glucose 86, Calcium 9.9, Iron 42 L, TIBC 314, Iron Saturation 13.4 L, Ferritin 205, C-React Prot Ext Range 68.80 H 07/06/23 14:55: S.aureus Protein A PCR POSITIVE H, MRSA (PCR) Negative Rhythm Strip Rhythm Strip: Sinus Rhythm Rate: 82 Ectopy: None Imaging Radiology Impression Foot X-Ray 07/06/23 10:50 IMPRESSION: Soft tissue swelling along the dorsum of the forefoot. No demonstrated fracture. Electronically Signed: Juan Jose Nicholson MD at 11:39 EDT , Chest X-Ray 07/06/23 11:15 IMPRESSION: No acute cardiopulmonary abnormality. COPD. Electronically Signed: Geraldo Jimenez MD at 11:40 EDT ,
--- NOTE | 2023-07-06 16:53 | PCM.RX.CS ---
Consult Antibiotic Management Pharmacy has been consulted to manage selected antibiotic: Vancomycin Type of Intervention Type of Consult: New start Suspected Infection Suspected Infection: Skin/Soft tissue and Osteomyelitis Labs Labs: Sodium 137 mmol/L (136-145) 07/06/23 11:20 Potassium 5.1 mmol/L (3.5-5.1) 07/06/23 11:20 Chloride 105 mmol/L (98-107) 07/06/23 11:20 Carbon Dioxide 30.0 mmol/L (21.0-32.0) 07/06/23 11:20 Anion Gap 2 (5-15) L 07/06/23 11:20 BUN 36 mg/dL (7-18) H 07/06/23 11:20 Creatinine 2.33 mg/dL (0.70-1.30) H 07/06/23 11:20 Est GFR (MDRD) Af Amer 36 mL/min (>60) L 07/06/23 11:20 Est GFR (MDRD) Non-Af 30 mL/min (>60) L 07/06/23 11:20 BUN/Creatinine Ratio 15.5 RATIO (10-20) 07/06/23 11:20 Glucose 86 mg/dL (74-106) 07/06/23 11:20 Pharmacy Plan for Drug Dosing Pharmacy Plan for Drug Dosing: NEW START IV VANCOMYCIN Consulting Physician: Dusty GRAY Indication: cellulitis/osteomyelitis Goal Trough: 15-20 mg/dl SrCr: 2.33 mg/dl CrCl: 27 ml/min Comments: loading dose of 1750mg given 07/05 @ 1556 Vancomycin Dose: Will start 750mg q24 07/06 @ 1600 and get a trough prior to the 3rd dose. Pending Level: 07/08/23 @ 1530 Pharmacy Service will continue to monitor and adjust dosing as required.
[2023-07-06] MEDS: Juven (unflavored) Packet 1 PACKET PO (17:28)
[2023-07-06] MEDS: Albuterol 2.5 MG/3 ML VIAL.NEB. INHALATION ×2 (19:49→23:03)
[2023-07-06] MEDS: MELATONIN 3 MG TABLET PO (20:31)
[2023-07-06] MEDS: oxyCODONE 5 MG Tablet PO (20:31)
[2023-07-06] MEDS: busPIRone 15 MG TABLET PO (20:32)
[2023-07-06] MEDS: Pantoprazole Sodium 40 MG in 0.9% Normal Saline (100mL MB+) 100 ML 330 MG IV (20:32)
[2023-07-06] MEDS: Sucralfate 1 GM Tablet PO (20:34)
[2023-07-06] MEDS: Pravastatin 20 MG Tablet 10 MG PO (20:34)
[2023-07-06] MEDS: Metoprolol Tartrate 50 MG Tablet PO (20:46)
[2023-07-07] VITALS (16 sets, daily range): BP systolic 76–116; BP diastolic 56–72; PULSE 66–94; RESP 14–20; TEMP 36.1–36.8; O2SAT 95–100; BMI 21.7; BMI 21.6
[2023-07-07] MEDS: Albuterol 2.5 MG/3 ML VIAL.NEB. INHALATION ×2 (03:06→07:42)
[2023-07-07 06:38] LABS: Absolute Lymphocyte Count 1.65 X10^3/uL (0.83-4.51); Basophil# 0.05 X10^3/uL; Basophil% 0.6 % (0-1); Eosinophil# 0.23 X10^3/uL; Hematocrit 28.5 % (40-54); Hemoglobin 8.6 g/dL (13.0-16.5); Lymphocyte # 1.65 X10^3/ul (0.83-4.51); Lymphocyte % 21.3 % (19-41); Mean Corp Hgb Conc 30.2 g/dL (32-36); Mean Corpuscular Hgb 29.4 pg (27.0-32.0); Mean Corpuscular Volume 97.3 fL (80-94); Monocyte# 0.68 X10^3/uL; Monocyte% 8.8 % (0-10); NRBC Flagged by Analyzer 0 % (0-5); Neutrophil # 5.04 X10^3/uL (2.7-7.7); Neutrophil % 65.1 % (47-70); Platelet Count 391 K/mm3 (150-450); RBC Distribution Width CV 14.9 % (11.6-14.6); RBC Distribution Width SD 53.1 fl (35.1-43.9); Red Blood Count 2.93 M/mm3 (4.6-6.2); White Blood Count 7.7 K/mm3 (4.4-11.0)
[2023-07-07] MEDS: oxyCODONE 5 MG Tablet PO ×2 (07:04→23:25)
[2023-07-07 07:13] LABS: International Normalized Ratio 1.2; Partial Thromboplast Time 40.5 Seconds (24.1-36.2); Prothrombin Time (Protime)PT. 15.5 SECONDS (11.7-14.9)
[2023-07-07 07:18] LABS: ALB/GLOB Ratio 0.6 RATIO (0.9-2.4); AST(SGOT) 15 U/L (15-37); Alanine Aminotransfer ALT/SGPT 15 U/L (16-61); Albumin, Serum 2.2 g/dL (3.2-5.0); Alkaline Phosphatase 45 U/L (45-117); Anion Gap 1 (5-15); BUN 38 mg/dL (7-18); BUN/Creat Ratio 19.6 RATIO (10-20); Calcium,Total 9.4 mg/dL (8.5-10.1); Chloride 104 mmol/L (98-107); Creatinine, Serum 1.94 mg/dL (0.70-1.30); EST Glomerular Filtration Rate 36 mL/min (>60); Est Glom Filt Rate - Afr Amer 44 mL/min (>60); Estimated Creatinine Clearance 32.85 ml/min; Globulin 3.8 g/dL (2.2-4.2); Glucose 86 mg/dL (74-106); Magnesium 1.9 mg/dL (1.6-2.6); Potassium 5.4 mmol/L (3.5-5.1); Sodium Level 136 mmol/L (136-145)
[2023-07-07] MEDS: 0.9% Saline Lock 10 ML Syringe IV ×2 (08:33→17:21)
[2023-07-07] MEDS: Pantoprazole Sodium 40 MG in 0.9% Normal Saline (100mL MB+) 100 ML 330 MG IV ×2 (08:34→23:16)
[2023-07-07] MEDS: DAKIN'S SOL HALF STRENGTH (=0.25%) 1 APPLIC TOPICAL (09:00)
--- NOTE | 2023-07-07 10:02 | EX.PCM.CONCC ---
Assessment & Plan Assessment/Plan (1) History of COPD: (2) Acute osteomyelitis of left foot: PLAN: Plan RECOMMENDATIONS: 1. Continue perioperative bronchodilator therapy. 2. Supplemental oxygen to maintain saturations at or above 90%. 3. Encourage incentive spirometer use. 4. Mobilize patient as early as feasible postoperatively. IMPRESSIONS: 1. History of asthma/COPD overlap syndrome with chronic hypoxemic respiratory failure The patient appears to be at his baseline from a respiratory perspective. He is already medically optimized, having been followed in the pulmonary medicine clinic on an outpatient basis. Recommend continuing perioperative bronchodilator therapy along with supplemental oxygen to maintain saturations at or above 90%. Recommend postoperative incentive spirometer utilization along with early mobilization, as medically feasible. Lastly, recommend consideration for regional over general anesthesia, if able. Will be available if any postoperative complications arise. The patient is otherwise medically optimized from a pulmonary perspective to proceed with surgery. This note was generated with [employer] dictation software. It may contain incorrect words, spelling, and punctuation that were not noted in checking the note before signing. HPI Consult Data Date of Consult: 07/07/23 HPI Narrative Reason for Consultation: Preoperative pulmonary optimization HPI Narrative: The patient is a 73-year-old male, with a history as outlined below, who presented to the emergency department on July 05 following recent imaging which demonstrated osteomyelitis involving the left foot. The patient is followed by Dr. Guaman of podiatry on an outpatient basis. His bone infection and subsequent wound has progressed with time, and surgical intervention was recommended. The patient was previously under the care of Dr. Kenny in the pulmonary medicine clinic. He has a known history of asthma/COPD overlap syndrome and is currently on a triple therapy inhaler regimen with Symbicort and Incruse. He has an extensive tobacco abuse history. At the time of his last pulmonary office visit in March 2023, he was documented to be utilizing 3 L/min of supplemental oxygen at his baseline. The patient does continue to smoke 0.5 packs of cigarettes per day. He reports compliance with his outpatient inhaler regimen. [facility] Medical History Insulin resistance Hx of blood clots HTN (hypertension) Asthma COPD (chronic obstructive pulmonary disease) Tobacco dependence syndrome COLD (chronic obstructive lung disease) Home Medications ?Medication ?Instructions ?Recorded ?Last Taken ?Type aspirin 81 mg chewable tablet 81 mg PO DAILY@0800 HEART HEALTH 02/03/14 07/06/23 History budesonide-formoterol HFA 160 2 puff PO BID COPD 02/03/14 07/06/23 History mcg-4.5 mcg/actuation aerosol inhaler (Symbicort) albuterol sulfate 90 mcg/actuation 2 puff inhalation Q4H PRN PRN Sob 08/24/18 Unknown History aerosol inhaler &/Or Wheezing apixaban 5 mg tablet 5 mg PO BID BLOOD THINNER 08/24/18 07/06/23 History lisinopril 20 mg tablet 20 mg PO DAILY bp 08/24/18 07/06/23 History metoprolol tartrate 50 mg tablet 50 mg PO BID HTN 08/24/18 07/06/23 History pravastatin 10 mg tablet 10 mg PO QHS HIGH CHOLESTEROL 10/04/22 07/05/23 History sucralfate 1 gram tablet (Carafate) 1 g PO TID GASTRIC ULCERS 30 days 10/24/22 07/06/23 Rx #90 tabs PEP device #1 ea 11/06/22 Unknown Rx folic acid 400 mcg tablet 0.4 mg PO DAILY DIETARY SUPPLEMENT 11/06/22 07/06/23 History prednisone 10 mg tablet 10 mg PO DAILY COPD 90 days #90 01/30/23 07/06/23 Rx tabs ipratropium 0.5 mg-albuterol 3 mg 3 ml inhalation Q4H PRN shortness 03/18/23 07/06/23 Rx (2.5 mg base)/3 mL nebulization of breath or wheezing #540 mL soln buspirone 10 mg tablet 15 mg PO TID DEPRESSION/ANXIETY 04/16/23 07/06/23 History cyanocobalamin (vitamin B-12) 100 100 mcg PO DAILY VITAMIN SUPPLEMENT 04/16/23 07/06/23 History mcg tablet (Vitamin B-12) cholecalciferol (vitamin D3) 25 25 mcg PO DAILY DIETARY SUPPLEMENT 05/27/23 07/06/23 History mcg (1,000 unit) capsule (Vitamin D3) oxycodone-acetaminophen 5 mg-325 1 tab PO Q6H PRN pain 7 days #28 06/20/23 Unknown Rx mg tablet (Percocet) tabs naproxen sodium 220 mg capsule 880 mg PO BID PRN PAIN 07/01/23 Unknown History (Aleve) Allergy/AdvReac Type Severity Reaction Status Date / Time azithromycin (From Zithromax) Allergy Swelling Verified 07/06/23 10:25 Penicillins Allergy Hives Verified 07/06/23 10:25 shellfish derived Allergy Hives Verified 07/06/23 10:25 venom-honey bee (bee venom Allergy Hives Verified 07/06/23 10:25 (honey bee)) chocolate flavor AdvReac Diarrhea Verified 07/06/23 10:25 Family History Other Asthma CAD (coronary artery disease) CVA (cerebral vascular accident) Cancer Diabetes Heart disease Hypertension Myocardial infarction Surgical History History of appendectomy Heart valve replaced History of hand surgery H/O neck surgery Social History Smoking Status: Light Smoker (<10/day) Tobacco: How many years used: 62 alcohol intake: current alcohol intake frequency: a few times a week Alcohol type: beer seatbelt use: always ROS ROS Narrative 10 systems were reviewed with pertinent positives as noted in the HPI above. Physical Exam Const alert and no apparent distress General Appearance: cooperative HEENT normocephalic and head/scalp atraumatic Eyes PERRL, EOMs intact bilaterally and conjunctivae normal Neck supple General: trachea midline Chest inspection of chest normal Resp normal respiratory effort Effort and Inspection: prolonged expiratory phase Auscultation: wheezes and diminished lung sounds Cardio regular rate and regular rhythm GI normal to inspection, nondistended, normoactive bowel sounds Extremity no clubbing, cyanosis or edema Neuro CN's II-XII intact bilaterally, moves all extremities and no focal motor deficits Psych cooperative and affect normal Medical Records Data Medical Nutrition Assessment Dietitian: Malnutrition Criteria Met Start: 07/06/23 15:50 Freq: Status: Active Protocol: Document 07/06/23 15:50 MICHELLE (Rec: 07/06/23 15:50 MICHELLE ) Nutrition Malnutrition Evidence of Malnutrition Exists Yes Malnutrition (severe): Acute Illness/Injury Evidenced By Suboptimal Energy Intake ( Severe),Weight Loss (Severe), Physical Changes (Mild) Intake Problem Increased Nutrient Needs (specify) Etiology protein related to skin status Signs/Symptoms as evidenced by L foot osteomyelitis/wound Status Active Problem Clinical Problem Acute Disease or Injury Related Malnutrition Etiology related to inadequate oral energy intake Signs/Symptoms as evidenced by 8.2% unintentional wt loss, po intake < 50% of est nutritional needs and mild fat /muscle loss in face/arms Status Active Problem Recommendation Dietitian Recommendations/Changes Will liberalize diet to Regular d/t signs/symptoms of malnutrition Will add vanilla/peanut butter ensure plus high protein with lunch Will order Bora bid w/ medpass for increased nutrition if consumed. Lab / Micro Data 07/07/23 05:32 07/07/23 05:32 Labs: Laboratory Results - last 24 hr 07/06/23 11:20: WBC 10.2, RBC 3.40 L, Hgb 9.8 L, Hct 32.8 L, MCV 96.5 H, MCH 28.8, MCHC 29.9 L, RDW Std Deviation 53.2 H, RDW Coeff of Meek 15.0 H, Plt Count 409, MPV 9.7, Immature Gran % (Auto) 1.200 H, Neut % (Auto) 73.0 H, Lymph % (Auto) 15.6 L, [place] % (Auto) 7.2, Eos % (Auto) 2.6, Baso % (Auto) 0.4, Absolute Neuts (auto) 7.4, Absolute Lymphs (auto) 1.59, Nucleated RBC % 0, ESR 26 H, Sodium 137, Potassium 5.1, Chloride 105, Carbon Dioxide 30.0, Anion Gap 2 L, BUN 36 H, Creatinine 2.33 H, Estim Creat Clear Calc 27.80, Est GFR (MDRD) Af Amer 36 L, Est GFR (MDRD) Non-Af 30 L, BUN/Creatinine Ratio 15.5, Glucose 86, Calcium 9.9, Iron 42 L, TIBC 314, Iron Saturation 13.4 L, Ferritin 205, C-React Prot Ext Range 68.80 H 07/06/23 14:55: S.aureus Protein A PCR POSITIVE H, MRSA (PCR) Negative 07/07/23 05:32: WBC 7.7, RBC 2.93 L, Hgb 8.6 L, Hct 28.5 L, MCV 97.3 H, MCH 29.4, MCHC 30.2 L, RDW Std Deviation 53.1 H, RDW Coeff of Meek 14.9 H, Plt Count 391, MPV 10.0, Immature Gran % (Auto) 1.200 H, Neut % (Auto) 65.1, Lymph % (Auto) 21.3, [place] % (Auto) 8.8, Eos % (Auto) 3.0, Baso % (Auto) 0.6, Absolute Neuts (auto) 5.0, Absolute Lymphs (auto) 1.65, Nucleated RBC % 0, PT 15.5 H, INR 1.2, APTT 40.5 H, Sodium 136, Potassium 5.4 H, Chloride 104, Carbon Dioxide 31.0, Anion Gap 1 L, BUN 38 H, Creatinine 1.94 H, Estim Creat Clear Calc 32.85, Est GFR (MDRD) Af Amer 44 L, Est GFR (MDRD) Non-Af 36 L, BUN/Creatinine Ratio 19.6, Glucose 86, Calcium 9.4, Magnesium 1.9, Total Bilirubin 0.30, AST 15, ALT 15 L, Alkaline Phosphatase 45, Total Protein 6.0 L, Albumin 2.2 L, Globulin 3.8, Albumin/Globulin Ratio 0.6 L Micro: Microbiology 07/06/23 14:55 Wound - Left Foot Gram Stain - Final 07/06/23 14:55 Wound - Left Foot Wound Culture - Preliminary Staphylococcus aureus Rhythm Strip Rhythm Strip: Sinus Rhythm Rate: 82 Ectopy: None Imaging Radiology Impression Foot X-Ray 07/06/23 10:50 IMPRESSION: Soft tissue swelling along the dorsum of the forefoot. No demonstrated fracture. Electronically Signed: Juan Jose Nicholson MD at 11:39 EDT , Chest X-Ray 07/06/23 11:15 IMPRESSION: No acute cardiopulmonary abnormality. COPD. Electronically Signed: Geraldo Jimenez MD at 11:40 EDT , Charges/Coding Visit Charges Inpatient E&M: 36967 Init Hosp L2
[2023-07-07] MEDS: levoFLOXacin IV 750 MG/150 ML BAG 100 MG IV (10:56)
[2023-07-07] MEDS: Ipratropium/Albuterol Sulfate 3 ML AMPUL.NEB INHALATION ×4 (11:27→23:35)
--- NOTE | 2023-07-07 11:31 | PN.HOSP_ITS ---
Reason for Visit Reason for Visit: Right foot wound Subjective Subjective Patient frustrated that he is not able to eat or drink at this time however we did discuss that his hemoglobin is down and has been trending down and that we are concerned about GI bleeding. He does admit that he has a history of peptic ulcer disease but states that was a long time ago. Also complaining of some right neck pain and shoulder pain that seems to be of cervical in origin we will start low-dose muscle relaxant and a K-pad. Objective Data Objective Data Vital Signs: Vital Signs Temp Pulse Resp BP Pulse Ox O2 Del Method O2 Flow Rate 97.7 F L 85 18 116/63 100 Nasal Cannula 3 07/07/23 08:19 07/07/23 11:28 07/07/23 11:28 07/07/23 08:19 07/07/23 08:19 07/07/23 08:25 07/07/23 08:25 Oxygen Flow Rate (L/min) 3 Oxygen Delivery Method Nasal Cannula Weight: 66.5 kg Body Mass Index (BMI) 21.6 Intake & Output: Intake and Output for Last 24 Hours 07/05/23 07/06/23 07/07/23 23:59 23:59 23:59 Intake Total 1415 / 1415 Output Total 1150 / 1150 Balance 1415 / 1415 -1150 / -1150 Medical Nutrition Assessment Dietitian: Malnutrition Criteria Met Start: 07/06/23 15:50 Freq: Status: Active Protocol: Document 07/06/23 15:50 SLA (Rec: 07/06/23 15:50 SLA ) Nutrition Malnutrition Evidence of Malnutrition Exists Yes Malnutrition (severe): Acute Illness/Injury Evidenced By Suboptimal Energy Intake ( Severe),Weight Loss (Severe), Physical Changes (Mild) Intake Problem Increased Nutrient Needs (specify) Etiology protein related to skin status Signs/Symptoms as evidenced by L foot osteomyelitis/wound Status Active Problem Clinical Problem Acute Disease or Injury Related Malnutrition Etiology related to inadequate oral energy intake Signs/Symptoms as evidenced by 8.2% unintentional wt loss, po intake < 50% of est nutritional needs and mild fat /muscle loss in face/arms Status Active Problem Recommendation Dietitian Recommendations/Changes Will liberalize diet to Regular d/t signs/symptoms of malnutrition Will add vanilla/peanut butter ensure plus high protein with lunch Will order Bora bid w/ medpass for increased nutrition if consumed. Lab / Micro Data 07/07/23 05:32 07/07/23 05:32 Labs: Laboratory Results - last 24 hr 07/06/23 11:20: WBC 10.2, RBC 3.40 L, Hgb 9.8 L, Hct 32.8 L, MCV 96.5 H, MCH 28.8, MCHC 29.9 L, RDW Std Deviation 53.2 H, RDW Coeff of Meek 15.0 H, Plt Count 409, MPV 9.7, Immature Gran % (Auto) 1.200 H, Neut % (Auto) 73.0 H, Lymph % (Auto) 15.6 L, [place] % (Auto) 7.2, Eos % (Auto) 2.6, Baso % (Auto) 0.4, Absolute Neuts (auto) 7.4, Absolute Lymphs (auto) 1.59, Nucleated RBC % 0, ESR 26 H, Sodium 137, Potassium 5.1, Chloride 105, Carbon Dioxide 30.0, Anion Gap 2 L, BUN 36 H, Creatinine 2.33 H, Estim Creat Clear Calc 27.80, Est GFR (MDRD) Af Amer 36 L, Est GFR (MDRD) Non-Af 30 L, BUN/Creatinine Ratio 15.5, Glucose 86, Calcium 9.9, Iron 42 L, TIBC 314, Iron Saturation 13.4 L, Ferritin 205, C-React Prot Ext Range 68.80 H 07/06/23 14:55: S.aureus Protein A PCR POSITIVE H, MRSA (PCR) Negative 07/07/23 05:32: WBC 7.7, RBC 2.93 L, Hgb 8.6 L, Hct 28.5 L, MCV 97.3 H, MCH 29.4, MCHC 30.2 L, RDW Std Deviation 53.1 H, RDW Coeff of Meek 14.9 H, Plt Count 391, MPV 10.0, Immature Gran % (Auto) 1.200 H, Neut % (Auto) 65.1, Lymph % (Auto) 21.3, [place] % (Auto) 8.8, Eos % (Auto) 3.0, Baso % (Auto) 0.6, Absolute Neuts (auto) 5.0, Absolute Lymphs (auto) 1.65, Nucleated RBC % 0, PT 15.5 H, INR 1.2, APTT 40.5 H, Sodium 136, Potassium 5.4 H, Chloride 104, Carbon Dioxide 31.0, Anion Gap 1 L, BUN 38 H, Creatinine 1.94 H, Estim Creat Clear Calc 32.85, Est GFR (MDRD) Af Amer 44 L, Est GFR (MDRD) Non-Af 36 L, BUN/Creatinine Ratio 19.6, Glucose 86, Calcium 9.4, Magnesium 1.9, Total Bilirubin 0.30, AST 15, ALT 15 L, Alkaline Phosphatase 45, Total Protein 6.0 L, Albumin 2.2 L, Globulin 3.8, Albumin/Globulin Ratio 0.6 L Micro: Microbiology 07/06/23 14:55 Wound - Left Foot Gram Stain - Final 07/06/23 14:55 Wound - Left Foot Wound Culture - Preliminary Staphylococcus aureus Radiography Diagnostic Testing: Radiology Impression Foot X-Ray 07/06/23 10:50 IMPRESSION: Soft tissue swelling along the dorsum of the forefoot. No demonstrated fracture. Electronically Signed: Juan Jose Nicholson MD at 11:39 EDT , Chest X-Ray 07/06/23 11:15 IMPRESSION: No acute cardiopulmonary abnormality. COPD. Electronically Signed: Geraldo Jimenez MD at 11:40 EDT , Rhythm Strip Rhythm Strip: Sinus Rhythm Rate: 82 Ectopy: None Physical Exam Const alert, oriented x3, no apparent distress and average body habitus; Negative for healthy appearing or well nourished Constitutional Narrative: Pleasant, older, white male, sitting up in bed on his baseline oxygen of 3 L, appears comfortable and nontoxic, frustrated today as he is n.p.o. for his EGD General Appearance: cooperative HEENT normocephalic, head/scalp atraumatic and moist oral mucous membranes HEENT Narrative: Dentition is poor, Mallampati is 2-3, no thrush Resp normal respiratory effort, no retractions, no use of accessory muscles and clear to auscultation bilaterally Resp Narrative: Markedly diminished diffusely, few scattered wheezes better end expiratory Auscultation: wheezes; Negative for rales or rhonchi Cardio regular rate, regular rhythm, S1 normal heart sound, S2 normal heart sound, no murmurs, no rub, no gallops and no clicks GI normal to inspection, nondistended, normoactive bowel sounds, soft to palpation and non-tender Extremity no clubbing, cyanosis or edema Extremity Narrative: Cap refill is 2+ bilateral lower extremities Neuro oriented x3, moves all extremities and no focal motor deficits Speech: speech normal Psych Psych Narrative: Affect is a bit flatter today as he is frustrated about not being able to eat however eye contact remains good and he interacts appropriately answering all questions Assessment & Plan Assessment/Plan (1) Wound of left foot: (2) Acute osteomyelitis of left foot: (3) Acute on chronic anemia: (4) Chronic anticoagulation: (5) CKD stage 3b, GFR 30-44 ml/min: PLAN: Plan Left foot wound with acute osteomyelitis -Given clindamycin the emergency department -Continue levofloxacin and vancomycin -Cultures thus far are showing Staph aureus with full identification and sensitivities pending -Plan is for amputation of the fifth metatarsal head--> per documentation OR is planned for or Thursday -Recently seen by vascular surgery and no need for any acute intervention prior to surgical intervention by podiatry -Scheduled Tylenol 1 g every 8 -As needed oxycodone -As needed Dilaudid -Nonweightbearing left lower extremity for now -PT/OT consultation after surgery -Consult infectious disease -Hold Eliquis and aspirin perioperatively -Preoperative EKG without any changes or concerning findings--> patient appears to be medically optimized from a cardiac standpoint -Pulmonary medicine is consulted for preop operative optimization from a lung standpoint Acute on chronic anemia -Patient with history of GI bleed/peptic ulcer disease -Patient has been using naproxen at home for pain -Most recent hemoglobin here on 06/15/2023 was 11.4 and today is down to 8.6 -Iron studies are somewhat suggestive of iron deficiency -Guaiac remains pending -Continue Protonix 40 mg IV twice daily -Continue home Carafate -GI consultation with plans for EGD later today -Patient currently n.p.o. Hyperkalemia -Mild and etiology is unclear as his renal function is improved -May be some hemolysis -Repeat in a.m. for resolution -Lisinopril is on hold CKD stage IIIb -Baseline serum creatinine in the last several months has been between 2.3 and 2.6 -Currently 2.33 at the time of admission and actually down to 1.9 today -No acute needs for dialysis -Will continue to monitor -Continue to hold lisinopril -Blood pressure seem to be fairly well-controlled without it at this point anyway -May need to consider discontinuation at discharge with transition to an alternative if blood pressures require -Would recommend discontinuation of Aleve at the time of discharge -Refer to nephrology after discharge History of VTE -Apixaban on hold in preparation for surgery as well as acute anemia -Restart when medically stable to do so Chronic hypoxic respiratory failure secondary to COPD -Patient is still smoking about a half a pack of cigarettes a day however he had been smoking up to 4 packs of cigarettes a day previously -Continue home inhalers -As needed albuterol -Incentive spirometry -On 3 L at baseline and stable on this at this time -Pulmonary consultation for assistance with preoperative optimization -Would suggest block with twilight sedation for surgery and avoid mechanical ventilation -Continue chronic prednisone Hypertension -Continue home metoprolol -Hold lisinopril perioperatively as well as with elevated serum creatinine -May ultimately discontinue altogether depending on renal function -As needed hydralazine for systolic pressure greater than 160 History of gastric ulcers -Continue Carafate -Protonix 40 mg IV twice daily Hyperlipidemia -Continue home pravastatin Tobacco abuse -Patient still smoking -nicotine patch available -Recommend cessation DVT prophylaxis -SCDs -Chemoprophylaxis contraindicated due to upcoming surgery and anemia CODE STATUS -Full code is verified with the patient prior to admission Charges/Coding Visit Charges Inpatient E&M: 19972 Subs Hosp L2
--- NOTE | 2023-07-07 12:48 | CASEMGMT ---
TIFFANY WALKER Assessment: Face to Face with pt for initial transition planning/care coordination assessment. TIFFANY WALKER introduced self and role at [facility], pt voices understanding and consents to assessment. Pt is A&O x4 and answers all questions appropriately at this time. Pt lying in bed in no distress with nurse at bedside. Care providers, pharmacy, and demographics verified/updated. Admitting Dx: L foot osteomyelitis PCP:Omayra Specialists:Deniz, pod at [facility]; Rubin pulm; Dk, ortho Preferred Pharmacy: [facility] Insurance: [facility] Prescription Benefit: yes LNOK: Abigail Oliva, Living Arrangements: Pt lives with in a single story home with a ramp to enter. Pt reports he is I in ADL's and pt assists with IADL's. Pt denies concerns at home. Transportation: Pt drives self and denies concerns with transportation. DME:motorized scooter, cane, walker, pox, oxygen through [employer] with portability. Pt will bring in upon dc. HHC/SNF: Pt has had [facility] in the past and has been to [facility]. Pt reports he had a bad experience at [facility]. Pt states no concerns with going home at time of dc. 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 Pt states he was told he will have a picc line. Should pt need IV atb, pt would like this to be done at home with C. Pt denies any alcohol use, street or illegal drug use. Pt states he smokes 1 pack of cigarettes and it lasts him 2 days Pt states no further concerns/needs. CM to follow. Advised pt to ask CM if any further question/concerns/needs arise, voices understanding. Pt Goal: Home vs Home with HHC Plan: TBD pending surgery, therapy and ID daisha Hunt RN, CM
--- NOTE | 2023-07-07 14:05 | PCM.CONS.GEN ---
Assessment & Plan Assessment/Plan (1) Chronic kidney disease: (2) Acute osteomyelitis of left foot: PLAN: Wound culture with staph aureus. Reports hives with PCN. Will change to vanc/cefepime/flagyl. OR planned with Dr. Guaman. Has difficulty taking pills. Will follow, thank you HPI Consult Data Date of Consult: 07/07/23 HPI Narrative Reason for Consultation: osteo HPI Narrative: DARRYN ROMAN, is a 73 M with CKD, COPD, presented with 1-2 months progressive L lateral foot wound with redness, swelling, drainage, and intermittent pain. Follows with Dr. Guaman, has taken courses of abx without improvement. Last course completed about a week ago. Bone scan showed osteo, admitted here on vanc/levaquin with plans for OR later this week. Feeling ok, no fever. Full ROS performed and neg except as noted above. ON LICENSE OF [facility] Medical History Insulin resistance Hx of blood clots HTN (hypertension) Asthma COPD (chronic obstructive pulmonary disease) Tobacco dependence syndrome COLD (chronic obstructive lung disease) Home Medications ?Medication ?Instructions ?Recorded ?Last Taken ?Type aspirin 81 mg chewable tablet 81 mg PO DAILY@0800 [facility]ART [facility] 02/03/14 07/06/23 History budesonide-formoterol HFA 160 2 puff PO BID COPD 02/03/14 07/06/23 History mcg-4.5 mcg/actuation aerosol inhaler (Symbicort) albuterol sulfate 90 mcg/actuation 2 puff inhalation Q4H PRN PRN Sob 08/24/18 Unknown History aerosol inhaler &/Or Wheezing apixaban 5 mg tablet 5 mg PO BID BLOOD THINNER 08/24/18 07/06/23 History lisinopril 20 mg tablet 20 mg PO DAILY bp 08/24/18 07/06/23 History metoprolol tartrate 50 mg tablet 50 mg PO BID HTN 08/24/18 07/06/23 History pravastatin 10 mg tablet 10 mg PO QHS HIGH CHOLESTEROL 10/04/22 07/05/23 History sucralfate 1 gram tablet (Carafate) 1 g PO TID GASTRIC ULCERS 30 days 10/24/22 07/06/23 Rx #90 tabs PEP device #1 ea 11/06/22 Unknown Rx folic acid 400 mcg tablet 0.4 mg PO DAILY DIETARY SUPPLEMENT 11/06/22 07/06/23 History prednisone 10 mg tablet 10 mg PO DAILY COPD 90 days #90 01/30/23 07/06/23 Rx tabs ipratropium 0.5 mg-albuterol 3 mg 3 ml inhalation Q4H PRN shortness 03/18/23 07/06/23 Rx (2.5 mg base)/3 mL nebulization of breath or wheezing #540 mL soln buspirone 10 mg tablet 15 mg PO TID DEPRESSION/ANXIETY 04/16/23 07/06/23 History cyanocobalamin (vitamin B-12) 100 100 mcg PO DAILY VITAMIN SUPPLEMENT 04/16/23 07/06/23 History mcg tablet (Vitamin B-12) cholecalciferol (vitamin D3) 25 25 mcg PO DAILY DIETARY SUPPLEMENT 05/27/23 07/06/23 History mcg (1,000 unit) capsule (Vitamin D3) oxycodone-acetaminophen 5 mg-325 1 tab PO Q6H PRN pain 7 days #28 06/20/23 Unknown Rx mg tablet (Percocet) tabs naproxen sodium 220 mg capsule 880 mg PO BID PRN PAIN 07/01/23 Unknown History (Aleve) Allergy/AdvReac Type Severity Reaction Status Date / Time azithromycin (From Zithromax) Allergy Swelling Verified 07/06/23 10:25 Penicillins Allergy Hives Verified 07/06/23 10:25 shellfish derived Allergy Hives Verified 07/06/23 10:25 venom-honey bee (bee venom Allergy Hives Verified 07/06/23 10:25 (honey bee)) chocolate flavor AdvReac Diarrhea Verified 07/06/23 10:25 Family History Other Asthma CAD (coronary artery disease) CVA (cerebral vascular accident) Cancer Diabetes Heart disease Hypertension Myocardial infarction Surgical History History of appendectomy Heart valve replaced History of hand surgery H/O neck surgery Social History Smoking Status: Light Smoker (<10/day) Tobacco: How many years used: 62 alcohol intake: current alcohol intake frequency: a few times a week Alcohol type: beer seatbelt use: always Physical Exam Const alert, oriented x3 and no apparent distress General Appearance: cooperative HEENT normocephalic and head/scalp atraumatic Neck supple and No nodes Resp normal air movement and clear to auscultation bilaterally Cardio regular rate and regular rhythm GI soft to palpation, non-tender and non-distended Extremity General Extremity: Negative for edema Skin Skin Narrative: L foot wrapped, reviewed wound photo Neuro CN's II-XII intact bilaterally Medical Records Data Medical Nutrition Assessment Dietitian: Malnutrition Criteria Met Start: 07/06/23 15:50 Freq: Status: Active Protocol: Document 07/06/23 15:50 SLA (Rec: 07/06/23 15:50 SLA ) Nutrition Malnutrition Evidence of Malnutrition Exists Yes Malnutrition (severe): Acute Illness/Injury Evidenced By Suboptimal Energy Intake ( Severe),Weight Loss (Severe), Physical Changes (Mild) Intake Problem Increased Nutrient Needs (specify) Etiology protein related to skin status Signs/Symptoms as evidenced by L foot osteomyelitis/wound Status Active Problem Clinical Problem Acute Disease or Injury Related Malnutrition Etiology related to inadequate oral energy intake Signs/Symptoms as evidenced by 8.2% unintentional wt loss, po intake < 50% of est nutritional needs and mild fat /muscle loss in face/arms Status Active Problem Recommendation Dietitian Recommendations/Changes Will liberalize diet to Regular d/t signs/symptoms of malnutrition Will add vanilla/peanut butter ensure plus high protein with lunch Will order Bora bid w/ medpass for increased nutrition if consumed. Lab / Micro Data Attestation: I reviewed the patient's lab results. 07/07/23 05:32 07/07/23 05:32 Labs: Laboratory Results - last 24 hr 07/06/23 11:20: Iron 42 L, TIBC 314, Iron Saturation 13.4 L, Ferritin 205 07/06/23 14:55: S.aureus Protein A PCR POSITIVE H, MRSA (PCR) Negative 07/07/23 05:32: WBC 7.7, RBC 2.93 L, Hgb 8.6 L, Hct 28.5 L, MCV 97.3 H, MCH 29.4, MCHC 30.2 L, RDW Std Deviation 53.1 H, RDW Coeff of Meek 14.9 H, Plt Count 391, MPV 10.0, Immature Gran % (Auto) 1.200 H, Neut % (Auto) 65.1, Lymph % (Auto) 21.3, [place] % (Auto) 8.8, Eos % (Auto) 3.0, Baso % (Auto) 0.6, Absolute Neuts (auto) 5.0, Absolute Lymphs (auto) 1.65, Nucleated RBC % 0, PT 15.5 H, INR 1.2, APTT 40.5 H, Sodium 136, Potassium 5.4 H, Chloride 104, Carbon Dioxide 31.0, Anion Gap 1 L, BUN 38 H, Creatinine 1.94 H, Estim Creat Clear Calc 32.85, Est GFR (MDRD) Af Amer 44 L, Est GFR (MDRD) Non-Af 36 L, BUN/Creatinine Ratio 19.6, Glucose 86, Calcium 9.4, Magnesium 1.9, Total Bilirubin 0.30, AST 15, ALT 15 L, Alkaline Phosphatase 45, Total Protein 6.0 L, Albumin 2.2 L, Globulin 3.8, Albumin/Globulin Ratio 0.6 L Micro: Microbiology 07/06/23 14:55 Wound - Left Foot Gram Stain - Final 07/06/23 14:55 Wound - Left Foot Wound Culture - Preliminary Staphylococcus aureus Rhythm Strip Rhythm Strip: Sinus Rhythm Rate: 82 Ectopy: None
[2023-07-07 14:08] LABS: Phosphorus 4.7 mg/dL (2.5-4.9)
[2023-07-07] MEDS: Lactated Ringers 1,000 ML 15 ML IV (14:12)
--- NOTE | 2023-07-07 15:00 | EGD_PTH ---
PATIENT: DARRYN ROMAN LOC: MS3 U#:[id number] AGE/SX: 73/M ROOM: [facility] RE07/06/[address]: Dr. Shilpa Nicholson DO : 1950 BED: 1 DIS: 07/15/2023 SPEC #: [id number] RECD: 07/08/23 10:06 STATUS: BARBARA RAY #: [id number] AJAY: 07/07/23 15:[address]: Ramesh Conrad DEPT: SURGICAL PATHOLOGY RECD BY: Madhuri Restrepo ENTERED: 07/08/23 11:30 SP TYPE: EGD BIOPSY [facility] DR: Dr. Parveen Guaman, DPM DO Dr. Cherelle Figueroa, DO Dr. Yoandy Coon MD Tissues: A - Duodenum, NOS B - Esophagus, NOS Procedures: Special Stain Group I Surgery Specimen Level IV Alcian Blue/PAS (control) HEADER OPERATION: EGD with biopsy, cautery PRE-OP DIAGNOSIS: Anemia TISSUE SUBMITTED: A- Duodenum biopsy, B- Distal esophagus biopsy MICROSCOPIC DIAGNOSIS A. Duodenum, biopsy: No pathologic change. B. Distal esophagus, biopsy: Gastroesophageal junction mucosa with mild chronic inflammation. No evidence of goblet cell metaplasia. See comment. / 07/09/2023 COMMENT B. Alcian blue/PAS stain with matched control supports the above diagnosis. MICROSCOPIC DESCRIPTION Slides are reviewed. GROSS DESCRIPTION A. Received in fixative is one container labeled with the patient's name and designated Duodenum biopsy. The specimen consists of two irregular fragments of light yusuf soft tissue that in aggregate measure 0.6 x 0.5 x 0.1 cm. The specimen is totally submitted in one cassette. B. Received in fixative is one container labeled with the patient's name and designated Distal esophagus biopsy. The specimen consists of two irregular fragments of light yusuf soft tissue that in aggregate measure 0.7 x 0.6 x 0.1 cm. The specimen is totally submitted in one cassette. /mr 07/08/2023 TC:3 CPT: 42650d8,45805
--- NOTE | 2023-07-07 15:24 | CHAPLAIN ---
Type of Pastoral Visit ___ Initial Visit ___ Follow-up Visit ___ On-call Visit ___ General Patient Visit ___ Spiritual Assessment ___ Family Conference ___ Bereavement ___ Rapid Response ___ Code Blue ___ Other (describe below) Pastoral Care Referral From ___ Patient ___ Family ___ Nurse ___ Physician ___ Sharples Machine Operator ___ Hearing Specialist ___ Other (describe below) Sacrament/Intervention ___ Active listening ___ Anointing ___ Latter Day ___ Bereavement ___ Communion ___ Deisi exploration ___ ___ Life review ___ Prayer ___ Reconciliation ___ Sacrament of Sick ___ Supportive presence ___ Wedding ___ Other (describe below) Pastoral Comments patient was out of the room as was his bed; left a calling card
--- NOTE | 2023-07-07 16:21 | OP.EGD_ITS ---
Patient Name: Marcos Oliva Procedure Date: 07/07/2023 3:44 PM Date of : 1950 Age: 73 Procedure: Upper GI endoscopy Indications: Iron deficiency anemia Providers: Ramesh Conrad DO Patient Profile: This is a 73 year old male. Refer to note in patient chart for documentation of history and physical. Patient has symptoms. Complications: No immediate complications. Procedure: Pre-Anesthesia Assessment: - Prior to the procedure, a History and Physical was performed, and patient medications and allergies were reviewed. The patient is competent. The risks and benefits of the procedure and the sedation options and risks were discussed with the patient. All questions were answered and informed consent was obtained. Patient identification and proposed procedure were verified by the physician in the pre-procedure area. Mental Status Examination: alert and oriented. Airway Examination: normal oropharyngeal airway and neck mobility. Prophylactic Antibiotics: The patient does not require prophylactic antibiotics. Prior Anticoagulants: The patient has taken no anticoagulant or antiplatelet agents. After reviewing the risks and benefits, the patient was deemed in satisfactory condition to undergo the procedure. The anesthesia plan was to use monitored anesthesia care (MAC). Immediately prior to administration of medications, the patient was re-assessed for adequacy to receive sedatives. The heart rate, respiratory rate, oxygen saturations, blood pressure, adequacy of pulmonary ventilation, and response to care were monitored throughout the procedure. The physical status of the patient was re-assessed after the procedure. After obtaining informed consent, the endoscope was passed under direct vision. Throughout the procedure, the patient's blood pressure, pulse, and oxygen saturations were monitored continuously. The Endoscope was introduced through the mouth, and advanced to the second part of duodenum. The upper GI endoscopy was accomplished without difficulty. The patient tolerated the procedure well. Scope In: 3:59:18 PM Scope Out: 4:07:50 PM Total Procedure Duration Time 0 hours 8 minutes 32 seconds Findings: Two cratered esophageal ulcers oozing blood were found 38 to 39 cm from the incisors. The largest lesion was 4 mm in largest dimension. Coagulation for hemostasis using heater probe was successful. Estimated blood loss was minimal. Biopsies were taken with a cold forceps for histology. Verification of patient identification for the specimen was done. Estimated blood loss was minimal. No gross lesions were noted in the entire examined stomach. Patchy mildly erythematous mucosa without active bleeding and with no stigmata of bleeding was found in the duodenal bulb. Biopsies were taken with a cold forceps for histology. Verification of patient identification for the specimen was done. Estimated blood loss was minimal. Impression: - Esophageal ulcers oozing blood. Treated with a heater probe. Biopsied. - No gross lesions in the entire stomach. - Erythematous duodenopathy. Biopsied. Recommendation: - [facility]. - Full liquid diet. - Continue present medications. - Await pathology results. - Consider colonoscopy as he has history of ulcerations in his cecum and terminal ileum as defined in 04/07/2022 Procedure Code(s): --- Professional --- 12522, 59, Esophagogastroduodenoscopy, flexible, transoral; with control of bleeding, any method 01248, 51, Esophagogastroduodenoscopy, flexible, transoral; with biopsy, single or multiple CPT copyright 2021 [employer]. All rights reserved. The codes documented in this report are preliminary and upon teenage program director review may be revised to meet current compliance requirements. Ramesh Conrad DO 07/07/2023 4:20:46 PM This report has been signed electronically. Number of Addenda: 0 Note Initiated On: 07/07/2023 3:44 PM
--- NOTE | 2023-07-07 16:21 | OP.CCLET_ITS ---
07/07/2023 Cheerlle Olmedo Do Re : Upper GI endoscopy procedure for Marcos Oliva Dear Shara This procedure was performed on Friday, July 07, 2023. My impressions and recommendations are as follows: Impressions : - Esophageal ulcers oozing blood. Treated with a heater probe. Biopsied. - No gross lesions in the entire stomach. - Erythematous duodenopathy. Biopsied. Recommendations : - [facility]. - Full liquid diet. - Continue present medications. - Await pathology results. - Consider colonoscopy as he has history of ulcerations in his cecum and terminal ileum as defined in 04/07/2022 My findings are described in the full procedure note, which is enclosed. If I can be of further assistance, please feel free to contact me at . Sincerely, Ramesh Conrad, 07/07/2023 4:20:46 PM This report has been signed electronically.
--- NOTE | 2023-07-07 16:24 | SUR.PHASEI ---
PATIENT DISORIENTED AND HAVING FLASH BACKS OF WAR. REQUESTING TO GO BACK TO HIS MEN, GIVE HIM HIS ALYSON ETC.
[2023-07-07] MEDS: Vancomycin HCl 750 MG in 0.9% Normal Saline (250mL Bag) 250 ML 250 MG IV (17:21)
[2023-07-07] MEDS: metroNIDAZOLE 500 MG Tablet PO ×2 (17:40→23:17)
[2023-07-07] MEDS: Acetaminophen 500 MG Tablet 1000 MG PO ×2 (17:42→23:16)
[2023-07-07] MEDS: Sucralfate 1 GM Tablet PO (17:43)
[2023-07-07] MEDS: predniSONE 10 MG Tablet PO (17:44)
[2023-07-07] MEDS: Bisacodyl 5 MG Tablet 20 MG PO (17:50)
[2023-07-07] MEDS: Metaxalone 800 MG Tablet PO (17:50)
[2023-07-07] MEDS: busPIRone 15 MG TABLET PO (23:17)
[2023-07-07] MEDS: Pravastatin 20 MG Tablet 10 MG PO (23:18)
[2023-07-07] MEDS: Heparin Injection (Vial) 5,000 UNIT/ML VIAL 5000 UNIT SC (23:21)
[2023-07-07] MEDS: MELATONIN 3 MG TABLET PO (23:25)
[2023-07-07] MEDS: Cefepime HCl 2 GM in 0.9% Normal Saline (100mL MB+) 100 ML IV (23:57)
[2023-07-08] VITALS (11 sets, daily range): BP systolic 102–132; BP diastolic 60–107; PULSE 88–110; RESP 16–18; TEMP 36.1–36.7; O2SAT 92–100; BMI 21.3
[2023-07-08] MEDS: Ipratropium/Albuterol Sulfate 3 ML AMPUL.NEB INHALATION ×6 (03:26→23:16)
[2023-07-08] MEDS: Sucralfate 1 GM Tablet PO ×2 (06:24→17:07)
[2023-07-08] MEDS: busPIRone 15 MG TABLET PO ×3 (06:24→21:59)
[2023-07-08] MEDS: metroNIDAZOLE 500 MG Tablet PO ×3 (06:24→21:59)
[2023-07-08] MEDS: Acetaminophen 500 MG Tablet 1000 MG PO ×3 (06:24→22:00)
[2023-07-08] MEDS: Heparin Injection (Vial) 5,000 UNIT/ML VIAL 5000 UNIT SC ×3 (06:25→21:59)
[2023-07-08 06:45] LABS: Hematocrit 29.5 % (40-54); Hemoglobin 8.8 g/dL (13.0-16.5); Mean Corp Hgb Conc 29.8 g/dL (32-36); Mean Corpuscular Hgb 28.9 pg (27.0-32.0); Mean Platelet Vol. 9.6 fl (6.2-12.0); Platelet Count 341 K/mm3 (150-450); RBC Distribution Width SD 52.9 fl (35.1-43.9); Red Blood Count 3.04 M/mm3 (4.6-6.2); White Blood Count 8.3 K/mm3 (4.4-11.0)
[2023-07-08 07:18] LABS: Anion Gap 6 (5-15); BUN 28 mg/dL (7-18); BUN/Creat Ratio 14.1 RATIO (10-20); Chloride 105 mmol/L (98-107); Creatinine, Serum 1.98 mg/dL (0.70-1.30); EST Glomerular Filtration Rate 36 mL/min (>60); Est Glom Filt Rate - Afr Amer 43 mL/min (>60); Estimated Creatinine Clearance 31.61 ml/min; Glucose 110 mg/dL (74-106); Potassium 4.9 mmol/L (3.5-5.1); Sodium Level 135 mmol/L (136-145)
[2023-07-08] MEDS: DAKIN'S SOL HALF STRENGTH (=0.25%) 1 APPLIC TOPICAL (07:32)
[2023-07-08] MEDS: Cefepime HCl 2 GM in 0.9% Normal Saline (100mL MB+) 100 ML IV ×2 (09:40→22:00)
[2023-07-08] MEDS: Metoprolol Tartrate 50 MG Tablet PO ×2 (09:41→21:59)
[2023-07-08] MEDS: Pantoprazole Sodium 40 MG Tablet PO ×2 (09:41→22:00)
[2023-07-08] MEDS: Docusate Sodium 100 MG Capsule PO ×2 (09:41→21:59)
[2023-07-08] MEDS: Folic Acid 1 MG Tablet PO (09:41)
--- NOTE | 2023-07-08 09:42 | PCM.PROGNOTE ---
Subjective Subjective Mr. Oliva is a 73-year-old male seen at bedside today for evaluation as well as for discussion of left foot surgical intervention this Thursday. He is recovering well from his procedure with Dr. Conrad. Patient states he has some pain to left lower extremity but is expected due to the nature of the bone infection. No acute events overnight. Patient states that he has been cared for by the medical team. He denies trauma. Denies constitutional symptoms. No acute complaints at this time. Objective Data Objective Data Vital Signs: Vital Signs Temp Pulse Resp BP Pulse Ox O2 Del Method O2 Flow Rate 97.1 F L 98 18 132/83 H 100 Nasal Cannula 3 07/08/23 09:30 07/08/23 09:30 07/08/23 09:30 07/08/23 09:30 07/08/23 09:30 07/08/23 09:37 07/08/23 09:37 Oxygen Flow Rate (L/min) 3 Oxygen Delivery Method Nasal Cannula Weight: 65.3 kg Body Mass Index (BMI) 21.3 Intake & Output: Intake and Output for Last 24 Hours 07/06/23 07/07/23 07/08/23 23:59 23:59 23:59 Intake Total 1415 / 1415 1127.25 / 1127.25 100 / 100 Output Total 1800 / 1800 1100 / 1100 Balance 1415 / 1415 -672.75 / -672.75 -1000 / -1000 Medical Nutrition Assessment Dietitian: Malnutrition Criteria Met Start: 07/06/23 15:50 Freq: Status: Active Protocol: Document 07/06/23 15:50 SLA (Rec: 07/06/23 15:50 SLA ) Nutrition Malnutrition Evidence of Malnutrition Exists Yes Malnutrition (severe): Acute Illness/Injury Evidenced By Suboptimal Energy Intake ( Severe),Weight Loss (Severe), Physical Changes (Mild) Intake Problem Increased Nutrient Needs (specify) Etiology protein related to skin status Signs/Symptoms as evidenced by L foot osteomyelitis/wound Status Active Problem Clinical Problem Acute Disease or Injury Related Malnutrition Etiology related to inadequate oral energy intake Signs/Symptoms as evidenced by 8.2% unintentional wt loss, po intake < 50% of est nutritional needs and mild fat /muscle loss in face/arms Status Active Problem Recommendation Dietitian Recommendations/Changes Will liberalize diet to Regular d/t signs/symptoms of malnutrition Will add vanilla/peanut butter ensure plus high protein with lunch Will order Bora bid w/ medpass for increased nutrition if consumed. Lab / Micro Data Attestation: I reviewed the patient's lab results. 07/08/23 06:35 07/08/23 06:35 Labs: Laboratory Results - last 24 hr 07/07/23 05:32: Phosphorus 4.7 07/08/23 06:35: WBC 8.3, RBC 3.04 L, Hgb 8.8 L, Hct 29.5 L, MCV 97.0 H, MCH 28.9, MCHC 29.8 L, RDW Std Deviation 52.9 H, RDW Coeff of Meek 15.0 H, Plt Count 341, MPV 9.6, Sodium 135 L, Potassium 4.9, Chloride 105, Carbon Dioxide 24.0, Anion Gap 6, BUN 28 H, Creatinine 1.98 H, Estim Creat Clear Calc 31.61, Est GFR (MDRD) Af Amer 43 L, Est GFR (MDRD) Non-Af 36 L, BUN/Creatinine Ratio 14.1, Glucose 110 H, Calcium 9.0 Micro: Microbiology 07/06/23 14:55 Wound - Left Foot Gram Stain - Final 07/06/23 14:55 Wound - Left Foot Wound Culture - Final Staphylococcus aureus Rhythm Strip Rhythm Strip: Sinus Rhythm Rate: 82 Ectopy: None Physical Exam Narrative Neurovascular status is unchanged. Skin temperature gradient is warm to warm from proximal ankle to distal dressing to left lower extremity. Neurological is intact. Mild pain on palpation to the full-thickness ulceration outside of the dressing to left lower extremity. No apparent calf compression. Assessment & Plan Assessment/Plan (1) Osteomyelitis: QUALIFIERS: Osteomyelitis type: other chronic Osteomyelitis location: foot Laterality: left Qualified Code(s): M86.672 - Other chronic osteomyelitis, left ankle and foot PLAN: Patient was examined and evaluated. All findings were discussed with the patient. All questions were answered to the patient satisfaction. Continue nursing wound care. Plan will be to take the patient back this Thursday (07/10/2023) for surgical intervention consisting of incision of bone cortex, peroneal brevis tendon transfer, with bone biopsies of the fourth metatarsal and cuboid, application of antibiotic beads, with her surgical skin graft site prep with application of skin graft substitute (Integra bilayer), and application of wound VAC. Will try to plan for monitored anesthesia care versus general anesthesia due to the patient's risk factors during surgery. Will plan for a popliteal block prior to surgery. Plan for patient to be n.p.o. midnight . Will plan for home health care for home wound VAC changes Thursday and Thursday and patient will follow-up once discharged at the wound care center with Dr. Guaman on Wednesdays for continued evaluation. Will recommend a PICC line and IV antibiotics after surgery. 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 Guaman any questions or concerns. Will continue to follow patient while in house. (2) Non-pressure chronic ulcer of other part of left foot with necrosis of bone: (3) Other specified peripheral vascular diseases:
[2023-07-08] MEDS: predniSONE 10 MG Tablet PO (09:53)
--- NOTE | 2023-07-08 13:04 | CASEMGMT ---
Discharge Planning A list of?HH providers including quality and resource use data and consistent with the patient's preferred geographic region, medical needs, and insurance network was created in [employer].? This list was provided to the RN DENISE. Katie Conn, Discharge Planning Asst.
--- NOTE | 2023-07-08 14:26 | CASEMGMT ---
TIFFANY WALKER into pt room, pt nurse also present. Discussed with pt that the plan is for him to have a wound vac post surgery and options for care for this. Pt would like to go home with this. TIFFANY WALKER provided pt list of [facility] agencies created by [employer] [employer]. Pt to review for his preferences and TIFFANY WALKER to check back tomorrow. Pt denies any further needs at this time.
--- NOTE | 2023-07-08 14:35 | PN.HOSP_ITS ---
Reason for Visit Reason for Visit: Left foot wound/osteomyelitis Subjective Subjective Patient denies any complaints currently other than his restless leg syndrome and asking if we can prescribe anything for that. I did discuss with him that we did start some low-dose Mirapex to see if this would help. He states has been ongoing for a long time and therefore do not think it is related to low ferritin with his GI bleed. We did discuss that they did find ulcerations on his EGD and that we need to keep him on Protonix and Carafate for now. He voiced understanding. Anxious to get his surgery over with tomorrow. We did discuss possible discharge planning and that he may need to go for rehab depending on how he does after surgery. He voiced understanding with this as well. He will have a wound VAC postoperatively. Objective Data Objective Data Vital Signs: Vital Signs Temp Pulse Resp BP Pulse Ox O2 Del Method O2 Flow Rate 97.5 F L 92 18 119/107 H 100 Nasal Cannula 3 07/08/23 14:27 07/08/23 14:27 07/08/23 14:27 07/08/23 14:27 07/08/23 14:27 07/08/23 14:27 07/08/23 14:27 Oxygen Flow Rate (L/min) 3 Oxygen Delivery Method Nasal Cannula Weight: 65.3 kg Body Mass Index (BMI) 21.3 Intake & Output: Intake and Output for Last 24 Hours 07/06/23 07/07/23 07/08/23 23:59 23:59 23:59 Intake Total 1415 / 1415 1127.25 / 1127.25 200 / 200 Output Total 1800 / 1800 1300 / 1300 Balance 1415 / 1415 -672.75 / -672.75 -1100 / -1100 Medical Nutrition Assessment Dietitian: Malnutrition Criteria Met Start: 07/06/23 15:50 Freq: Status: Active Protocol: Document 07/06/23 15:50 MICHELLE (Rec: 07/06/23 15:50 MICHELLE ) Nutrition Malnutrition Evidence of Malnutrition Exists Yes Malnutrition (severe): Acute Illness/Injury Evidenced By Suboptimal Energy Intake ( Severe),Weight Loss (Severe), Physical Changes (Mild) Intake Problem Increased Nutrient Needs (specify) Etiology protein related to skin status Signs/Symptoms as evidenced by L foot osteomyelitis/wound Status Active Problem Clinical Problem Acute Disease or Injury Related Malnutrition Etiology related to inadequate oral energy intake Signs/Symptoms as evidenced by 8.2% unintentional wt loss, po intake < 50% of est nutritional needs and mild fat /muscle loss in face/arms Status Active Problem Recommendation Dietitian Recommendations/Changes Will liberalize diet to Regular d/t signs/symptoms of malnutrition Will add vanilla/peanut butter ensure plus high protein with lunch Will order Bora bid w/ medpass for increased nutrition if consumed. Lab / Micro Data 07/08/23 06:35 07/08/23 06:35 Labs: Laboratory Results - last 24 hr 07/08/23 06:35: WBC 8.3, RBC 3.04 L, Hgb 8.8 L, Hct 29.5 L, MCV 97.0 H, MCH 28.9, MCHC 29.8 L, RDW Std Deviation 52.9 H, RDW Coeff of Meek 15.0 H, Plt Count 341, MPV 9.6, Sodium 135 L, Potassium 4.9, Chloride 105, Carbon Dioxide 24.0, Anion Gap 6, BUN 28 H, Creatinine 1.98 H, Estim Creat Clear Calc 31.61, Est GFR (MDRD) Af Amer 43 L, Est GFR (MDRD) Non-Af 36 L, BUN/Creatinine Ratio 14.1, G lucose 110 H, Calcium 9.0 Micro: Microbiology 07/06/23 14:55 Wound - Left Foot Gram Stain - Final 07/06/23 14:55 Wound - Left Foot Wound Culture - Final Staphylococcus aureus Rhythm Strip Rhythm Strip: Sinus Rhythm Rate: 82 Ectopy: None Physical Exam Const alert, oriented x3, no apparent distress and average body habitus; Negative for healthy appearing or well nourished Constitutional Narrative: Pleasant, older, white male, sitting up on the edge of the bed, appears comfortable, nontoxic, very pleasant and jovial, extremely flirtatious at times General Appearance: cooperative HEENT normocephalic, head/scalp atraumatic and moist oral mucous membranes HEENT Narrative: Dentition is poor, Mallampati is 2-3, no thrush Resp normal respiratory effort, no retractions, no use of accessory muscles and clear to auscultation bilaterally Resp Narrative: Markedly diminished diffusely Auscultation: Negative for rales, rhonchi or wheezes Cardio regular rate, regular rhythm, S1 normal heart sound, S2 normal heart sound, no murmurs, no rub, no gallops and no clicks GI normal to inspection, nondistended, normoactive bowel sounds, soft to palpation and non-tender Extremity no clubbing, cyanosis or edema Extremity Narrative: Cap refill is 2+ bilateral lower extremities Neuro oriented x3, moves all extremities and no focal motor deficits Speech: speech normal Psych affect normal Psych Narrative: Pleasant, interacts appropriately but is flirtatious at times Assessment & Plan Assessment/Plan (1) Wound of left foot: (2) Acute osteomyelitis of left foot: (3) Acute on chronic anemia: (4) Chronic anticoagulation: (5) CKD stage 3b, GFR 30-44 ml/min: PLAN: Plan Left foot wound with acute osteomyelitis -Given clindamycin the emergency department -Continue levofloxacin and vancomycin -Cultures thus far are showing Staph aureus with full identification and sensitivities pending -Plan is for amputation of the fifth metatarsal head--> per documentation OR is planned for or Thursday -Recently seen by vascular surgery and no need for any acute intervention prior to surgical intervention by podiatry -Scheduled Tylenol 1 g every 8 -As needed oxycodone -As needed Dilaudid -Nonweightbearing left lower extremity for now -PT/OT consultation after surgery -Consult infectious disease -Hold Eliquis and aspirin perioperatively -Preoperative EKG without any changes or concerning findings--> patient appears to be medically optimized from a cardiac standpoint -Pulmonary medicine is consulted for preop operative optimization from a lung standpoint Acute on chronic anemia secondary to esophageal ulcers -EGD performed on 07/07/2023 and he was found to have oozing esophageal ulcers that were treated with coagulation for hemostasis with heater probe and biopsies were taken, stomach was normal and there was erythematous duodenopathy -Full liquid diet ordered by GI -Hemoglobin has now stabilized at 8.0-9.0 -Baseline appears to be between 11 and 12 -Continue Protonix 40 mg twice daily but transition to oral -Continue home Carafate -GI is considering colonoscopy as he does have history of ulcerations in his cecum and terminal ileum but will watch hemoglobin for now -Appreciate GI input Hyperkalemia -Resolved CKD stage IIIb -Baseline serum creatinine in the last several months has been between 2.3 and 2.6 -Currently 2.33 at the time of admission and stable at 1.98 today -No acute needs for dialysis -Will continue to monitor -Continue to hold lisinopril -Blood pressure seem to be fairly well-controlled without it at this point anyway -May need to consider discontinuation at discharge with transition to an alternative if blood pressures require -Would recommend discontinuation of Aleve at the time of discharge -Refer to nephrology after discharge Restless leg syndrome -Patient states that this has been an ongoing long-term problem for him -Iron deficiency related to GI bleed may contribute as well with a lower ferritin -Start Mirapex 0.5 mg nightly Constipation -Patient is scheduled Colace and will add scheduled MiraLAX -Will likely need to back off once he starts bowel movements to avoid diarrhea History of VTE -Apixaban on hold in preparation for surgery as well as acute anemia -Restart when medically stable to do so and okay with gastroenterology Chronic hypoxic respiratory failure secondary to COPD -Patient is still smoking about a half a pack of cigarettes a day however he had been smoking up to 4 packs of cigarettes a day previously -Continue home inhalers -As needed albuterol -Incentive spirometry -On 3 L at baseline and stable on this at this time -Pulmonary consultation for assistance with preoperative optimization -Would suggest block with twilight sedation for surgery and avoid mechanical ventilation -Continue chronic prednisone Hypertension -Continue home metoprolol -Hold lisinopril perioperatively as well as with elevated serum creatinine -May ultimately discontinue altogether depending on renal function -As needed hydralazine for systolic pressure greater than 160 History of gastric ulcers -Continue Carafate -Transition IV Protonix to oral 40 twice daily Hyperlipidemia -Continue home pravastatin Tobacco abuse -Patient still smoking -nicotine patch available -Recommend cessation DVT prophylaxis -SCDs -Chemoprophylaxis contraindicated due to upcoming surgery and anemia CODE STATUS -Full code is verified with the patient prior to admission Charges/Coding Visit Charges Inpatient E&M: 88894 Subs Hosp L2
[2023-07-08] MEDS: Polyethylene Glycol 3350 17 GM PACKET PO (14:59)
[2023-07-08] MEDS: SimETHICONE 80 MG Chewable Tablet PO (15:08)
--- NOTE | 2023-07-08 15:53 | CHAPLAIN ---
Type of Pastoral Visit _x__ Initial Visit ___ Follow-up Visit ___ On-call Visit ___ General Patient Visit ___ Spiritual Assessment ___ Family Conference ___ Bereavement ___ Rapid Response ___ Code Blue ___ Other (describe below) Pastoral Care Referral From _x__ Patient ___ Family ___ Nurse ___ Physician ___ Stuffed Casing Tier ___ Chain Maker Hand ___ Other (describe below) Sacrament/Intervention _x__ Active listening ___ Anointing ___ Rastafarian ___ Bereavement ___ Communion ___ Deisi exploration ___ _x__ Life review _x__ Prayer ___ Reconciliation ___ Sacrament of Sick _x__ Supportive presence ___ Wedding ___ Other (describe below) Pastoral Comments patient speaks of his foot and need of surgery; pt also gives some life perspective and his feelings about people who just want more and the state of our country/world today; 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
[2023-07-08 16:30] LABS: Vancomycin, Trough Level 20.6 ug/mL (5.0-15.0)
--- NOTE | 2023-07-08 16:47 | PCM.RX.CS ---
Consult Antibiotic Management Pharmacy has been consulted to manage selected antibiotic: Vancomycin Type of Intervention Type of Consult: Follow-up Suspected Infection Suspected Infection: Skin/Soft tissue Prior Doses of Antibiotics Prior Doses of Antibiotics Received/Current Regimen: Vancomycin 750 mg IV given 07/06 @ 1721 Labs Labs: Sodium 135 mmol/L (136-145) L 07/08/23 06:35 Potassium 4.9 mmol/L (3.5-5.1) 07/08/23 06:35 Chloride 105 mmol/L (98-107) 07/08/23 06:35 Carbon Dioxide 24.0 mmol/L (21.0-32.0) 07/08/23 06:35 Anion Gap 6 (5-15) 07/08/23 06:35 BUN 28 mg/dL (7-18) H 07/08/23 06:35 Creatinine 1.98 mg/dL (0.70-1.30) H 07/08/23 06:35 Est GFR (MDRD) Af Amer 43 mL/min (>60) L 07/08/23 06:35 Est GFR (MDRD) Non-Af 36 mL/min (>60) L 07/08/23 06:35 BUN/Creatinine Ratio 14.1 RATIO (10-20) 07/08/23 06:35 Glucose 110 mg/dL (74-106) H 07/08/23 06:35 Vancomycin Trough 20.6 ug/mL (5.0-15.0) H 07/08/23 15:30 Microbiology Microbiology: Microbiology 07/06/23 14:55 Wound - Left Foot Gram Stain - Final 07/06/23 14:55 Wound - Left Foot Wound Culture - Final Staphylococcus aureus Dosing Weight Weight used for dosin.3 kg Estimated Creatinine Clearance Estimated Creatinine Clearance: ~32 Goal Trough Goal Trough: 15-20 mcg/mL Pharmacy Plan for Drug Dosing Pharmacy Plan for Drug Dosing: Vancomycin trough = 20.6, decrease to 500 mg Q24H Pharmacy Service will continue to monitor and adjust dosing as required. Follow-Up Labs Follow-Up Labs: Trough: Vancomycin Date/Time Labs Ordered Labs to be done on [date and time ordered]: 07/09 @ 9380
[2023-07-08] MEDS: oxyCODONE 5 MG Tablet PO (17:06)
[2023-07-08] MEDS: 0.9% Saline Lock 10 ML Syringe IV (17:07)
[2023-07-08] MEDS: Vancomycin IV 500 MG/100 ML BAG 100 MG IV (17:07)
[2023-07-08] MEDS: 0.9% Normal Saline (250mL Bag) 250 ML 15 ML IV (18:04)
[2023-07-08] MEDS: Pravastatin 20 MG Tablet 10 MG PO (22:00)
[2023-07-08] MEDS: Pramipexole Di-HCl 0.5 MG Tablet PO (22:00)
[2023-07-09] VITALS (13 sets, daily range): BP systolic 113–150; BP diastolic 68–94; PULSE 81–102; RESP 16–18; TEMP 36.7–37; O2SAT 98–100; BMI 21.1
[2023-07-09] MEDS: Ipratropium/Albuterol Sulfate 3 ML AMPUL.NEB INHALATION ×6 (02:10→23:00)
[2023-07-09] MEDS: oxyCODONE 5 MG Tablet PO (03:12)
[2023-07-09] MEDS: busPIRone 15 MG TABLET PO ×2 (06:39→22:18)
[2023-07-09] MEDS: Acetaminophen 500 MG Tablet 1000 MG PO ×2 (06:40→22:19)
[2023-07-09] MEDS: metroNIDAZOLE 500 MG Tablet PO (06:40)
[2023-07-09] MEDS: Heparin Injection (Vial) 5,000 UNIT/ML VIAL 5000 UNIT SC ×2 (06:40→14:27)
[2023-07-09] MEDS: Sucralfate 1 GM Tablet PO (06:40)
[2023-07-09 07:23] LABS: Hematocrit 28.2 % (40-54); Hemoglobin 8.7 g/dL (13.0-16.5); Mean Corp Hgb Conc 30.9 g/dL (32-36); Mean Corpuscular Hgb 29.3 pg (27.0-32.0); Mean Corpuscular Volume 94.9 fL (80-94); Mean Platelet Vol. 9.8 fl (6.2-12.0); Platelet Count 355 K/mm3 (150-450); RBC Distribution Width CV 14.9 % (11.6-14.6); Red Blood Count 2.97 M/mm3 (4.6-6.2); White Blood Count 9.6 K/mm3 (4.4-11.0)
[2023-07-09] MEDS: Folic Acid 1 MG Tablet PO (07:48)
[2023-07-09] MEDS: Metoprolol Tartrate 50 MG Tablet PO ×2 (07:48→22:18)
[2023-07-09] MEDS: Pantoprazole Sodium 40 MG Tablet PO ×2 (07:48→22:19)
[2023-07-09] MEDS: predniSONE 10 MG Tablet PO (07:48)
[2023-07-09] MEDS: DAKIN'S SOL HALF STRENGTH (=0.25%) 1 APPLIC TOPICAL (07:49)
[2023-07-09 08:03] LABS: Anion Gap 5 (5-15); BUN 26 mg/dL (7-18); BUN/Creat Ratio 14.1 RATIO (10-20); Calcium,Total 8.8 mg/dL (8.5-10.1); Chloride 106 mmol/L (98-107); Creatinine, Serum 1.84 mg/dL (0.70-1.30); EST Glomerular Filtration Rate 39 mL/min (>60); Est Glom Filt Rate - Afr Amer 47 mL/min (>60); Glucose 115 mg/dL (74-106); Potassium 4.5 mmol/L (3.5-5.1); Sodium Level 137 mmol/L (136-145)
[2023-07-09] MEDS: Cefepime HCl 2 GM in 0.9% Normal Saline (100mL MB+) 100 ML IV (09:30)
[2023-07-09] MEDS: 0.9% Saline Lock 10 ML Syringe IV (09:49)
--- NOTE | 2023-07-09 12:07 | CASEMGMT ---
Discharge Planning [facility] accepted patient. RN CM updated. Katie Conn DC Planning Asst.
--- NOTE | 2023-07-09 14:16 | PN.HOSP_ITS ---
Reason for Visit Reason for Visit: Left foot wound Subjective Subjective Patient denies any issues overnight. States that he is much less gassy today after simethicone. No complaints at this time. States that he was told OR as planned tomorrow at 9 AM. Objective Data Objective Data Vital Signs: Vital Signs Temp Pulse Resp BP Pulse Ox O2 Del Method O2 Flow Rate 98.3 F 81 18 124/75 H 100 Nasal Cannula 3 07/09/23 11:34 07/09/23 11:34 07/09/23 11:34 07/09/23 11:34 07/09/23 11:34 07/09/23 11:34 07/09/23 11:34 Oxygen Flow Rate (L/min) 3 Oxygen Delivery Method Nasal Cannula Weight: 64.7 kg Body Mass Index (BMI) 21.1 Intake & Output: Intake and Output for Last 24 Hours 07/07/23 07/08/23 07/09/23 23:59 23:59 23:59 Intake Total 1127.25 / 1127.25 400 / 840 900 / 900 Output Total 1800 / 1800 1300 / 1300 700 / 700 Balance -672.75 / -672.75 -900 / -460 200 / 200 Medical Nutrition Assessment Dietitian: Malnutrition Criteria Met Start: 07/06/23 15:50 Freq: Status: Active Protocol: Document 07/06/23 15:50 MICHELLE (Rec: 07/06/23 15:50 SLA ) Nutrition Malnutrition Evidence of Malnutrition Exists Yes Malnutrition (severe): Acute Illness/Injury Evidenced By Suboptimal Energy Intake ( Severe),Weight Loss (Severe), Physical Changes (Mild) Intake Problem Increased Nutrient Needs (specify) Etiology protein related to skin status Signs/Symptoms as evidenced by L foot osteomyelitis/wound Status Active Problem Clinical Problem Acute Disease or Injury Related Malnutrition Etiology related to inadequate oral energy intake Signs/Symptoms as evidenced by 8.2% unintentional wt loss, po intake < 50% of est nutritional needs and mild fat /muscle loss in face/arms Status Active Problem Recommendation Dietitian Recommendations/Changes Will liberalize diet to Regular d/t signs/symptoms of malnutrition Will add vanilla/peanut butter ensure plus high protein with lunch Will order Bora bid w/ medpass for increased nutrition if consumed. Lab / Micro Data 07/09/23 06:41 07/09/23 06:41 Labs: Laboratory Results - last 24 hr 07/08/23 15:30: Vancomycin Trough 20.6 H 07/09/23 06:41: WBC 9.6, RBC 2.97 L, Hgb 8.7 L, Hct 28.2 L, MCV 94.9 H, MCH 29.3, MCHC 30.9 L, RDW Std Deviation 52.0 H, RDW Coeff of Meek 14.9 H, Plt Count 355, MPV 9.8, Sodium 137, Potassium 4.5, Chloride 106, Carbon Dioxide 26.0, Anion Gap 5, BUN 26 H, Creatinine 1.84 H, Estim Creat Clear Calc 33.70, Est GFR (MDRD) Af Amer 47 L, Est GFR (MDRD) Non-Af 39 L, BUN/Creatinine Ratio 14.1, G lucose 115 H, Calcium 8.8 Micro: Microbiology 07/06/23 14:55 Wound - Left Foot Gram Stain - Final 07/06/23 14:55 Wound - Left Foot Wound Culture - Final Staphylococcus aureus Rhythm Strip Rhythm Strip: Sinus Rhythm Rate: 82 Ectopy: None Physical Exam Const alert, oriented x3, no apparent distress and average body habitus; Negative for healthy appearing or well nourished Constitutional Narrative: Pleasant, older, white male, sitting up in bed and watching television, appears comfortable, nontoxic, extremely pleasant General Appearance: cooperative HEENT normocephalic, head/scalp atraumatic and moist oral mucous membranes HEENT Narrative: Mallampati 2, no thrush Resp normal respiratory effort, no retractions, no use of accessory muscles and clear to auscultation bilaterally Resp Narrative: Markedly diminished diffusely but no adventitious sounds noted Auscultation: Negative for rales, rhonchi or wheezes Cardio regular rate, regular rhythm, S1 normal heart sound, S2 normal heart sound, no murmurs, no rub, no gallops and no clicks GI normal to inspection, nondistended, normoactive bowel sounds, soft to palpation and non-tender Extremity no clubbing, cyanosis or edema Extremity Narrative: Cap refill is 2+ bilateral lower extremities Neuro oriented x3, moves all extremities and no focal motor deficits Speech: speech normal Psych affect normal Psych Narrative: Pleasant Assessment & Plan Assessment/Plan (1) Wound of left foot: (2) Acute osteomyelitis of left foot: (3) Acute on chronic anemia: (4) Chronic anticoagulation: (5) CKD stage 3b, GFR 30-44 ml/min: PLAN: Plan Left foot wound with acute osteomyelitis -Continue vancomycin/cefepime/Flagyl -Unclear if patient will need antibiotics at discharge--> awaiting ID input and if needs IV will have PICC line placed -Cultures show MSSA -Plan is for amputation of the fifth metatarsal head--> 9 AM tomorrow morning -Recently seen by vascular surgery and no need for any acute intervention prior to surgical intervention by podiatry -Scheduled Tylenol 1 g every 8 -As needed oxycodone -As needed Dilaudid -Nonweightbearing left lower extremity for now -Plan is for wound VAC postoperatively with home health care and outpatient wound center on Wednesdays after discharge -PT/OT consultation after surgery -Consult infectious disease -Hold Eliquis and aspirin perioperatively -Preoperative EKG without any changes or concerning findings--> patient appears to be medically optimized from a cardiac standpoint -Pulmonary medicine has cleared patient from a pulmonary standpoint and feels he is medically optimized Acute on chronic anemia secondary to esophageal ulcers -EGD performed on 07/07/2023 and he was found to have oozing esophageal ulcers that were treated with coagulation for hemostasis with heater probe and biopsies were taken, stomach was normal and there was erythematous duodenopathy -Diet advance to general diet with n.p.o. after midnight for surgery tomorrow -Hemoglobin remains stabilized at 8.0-9.0 -Baseline appears to be between 11 and 12 -Continue Protonix 40 mg twice daily but transition to oral -Continue home Carafate -GI is considering colonoscopy as he does have history of ulcerations in his cecum and terminal ileum but will watch hemoglobin for now--> will plan for outpatient colonoscopy as long as hemoglobin remained stable -Appreciate GI input CKD stage IIIb -Baseline serum creatinine in the last several months has been between 2.3 and 2.6 -Currently 2.33 at the time of admission and stable at 1.84 today -No acute needs for dialysis -Will continue to monitor -Continue to hold lisinopril -Blood pressure seem to be fairly well-controlled without it at this point anyway -May need to consider discontinuation at discharge with transition to an alternative if blood pressures require -Would recommend discontinuation of Aleve at the time of discharge -Refer to nephrology after discharge Restless leg syndrome -Patient states that this has been an ongoing long-term problem for him -Iron deficiency related to GI bleed may contribute as well with a lower ferritin -Continue Mirapex 0.5 mg nightly Constipation -Patient is scheduled Colace and will add scheduled MiraLAX -Will likely need to back off once he starts bowel movements to avoid diarrhea History of VTE -Apixaban on hold in preparation for surgery as well as acute anemia -Restart when medically stable to do so and okay with gastroenterology Chronic hypoxic respiratory failure secondary to COPD -Patient is still smoking about a half a pack of cigarettes a day however he had been smoking up to 4 packs of cigarettes a day previously -Continue home inhalers -As needed albuterol -Incentive spirometry -On 3 L at baseline and stable on this at this time -Pulmonary medicine has indicated that he is optimized from a respiratory standpoint for surgery -Would suggest block with twilight sedation for surgery and avoid mechanical ventilation -Continue chronic prednisone Hypertension -Continue home metoprolol -Hold lisinopril perioperatively as well as with elevated serum creatinine -Will likely discontinue altogether at discharge based on current blood pressure measurements -As needed hydralazine for systolic pressure greater than 160 History of gastric ulcers -Continue Carafate -Transition IV Protonix to oral 40 twice daily Hyperlipidemia -Continue home pravastatin Tobacco abuse -Patient still smoking -nicotine patch available -Recommend cessation DVT prophylaxis -SCDs -Chemoprophylaxis contraindicated due to upcoming surgery and anemia CODE STATUS -Full code is verified with the patient prior to admission Charges/Coding Visit Charges Inpatient E&M: 44990 Subs Hosp L2
--- NOTE | 2023-07-09 16:05 | PCM.PN.ID ---
Physical Exam Narrative Feeling ok, some pain in foot, no fever Const alert and no apparent distress General Appearance: cooperative Resp normal air movement and clear to auscultation bilaterally Cardio regular rate and regular rhythm GI soft to palpation, non-tender and non-distended Skin Skin Narrative: L foot wrapped ID ID: Route of nutrition/ use of supplements: [] Nutritional Intake: [] IV Site: [] Braun Catheter: [] Assessment & Plan Assessment/Plan (1) Chronic kidney disease: (2) Acute osteomyelitis of left foot: PLAN: Wound culture with MSSA. Prior wound cx with MSSA and enterococcus. Reports hives with PCN. On vanc/cefepime/flagyl. OR planned with Dr. Guaman in AM. Has difficulty taking pills. Will order picc and narrow to meropenem for single drug therapy, plan on 6 weeks iv abx at discharge with stop date 08/21/23 and weekly labs, ID followup in 2 weeks. Will follow
[2023-07-09] MEDS: Ondansetron 4 MG/2 ML Vial IV (21:26)
[2023-07-09] MEDS: Meropenem 1 GM in 0.9% Normal Saline (100mL MB+) 100 ML IV (22:14)
[2023-07-09] MEDS: Pramipexole Di-HCl 0.5 MG Tablet PO (22:19)
[2023-07-10] VITALS (20 sets, daily range): BP systolic 86–158; BP diastolic 64–117; PULSE 77–107; RESP 12–20; TEMP 36.3–37.1; O2SAT 94–100; BMI 22.2
--- NOTE | 2023-07-10 | TESH_PTH ---
PATIENT: DARRYN ROMAN LOC: MS3 U#:[id number] AGE/SX: 73/M ROOM: [facility] [place] RE07/06/[address]: Dr. Shilpa Nicholson DO : 1950 BED: 1 DIS: 07/15/2023 SPEC #: [id number] RECD: 07/10/23 13:31 STATUS: BARBARA REQ #: [id number] AJAY: 07/10/23 00:[address]: Parveen Guaman DEPT: SURGICAL PATHOLOGY RECD BY: Yo Acuna ENTERED: 07/10/23 13:32 SP TYPE: TENDON OTHR DR: Dr. Parveen Guaman, DPM DO Dr. Cherelle Figueroa, DO Dr. Yoandy Coon MD Tissues: A - Tendon and tendon sheath, NOS B - Bone of foot, NOS C - Bone of foot, NOS D - Bone of foot, NOS E - Bone of foot, NOS Procedures: Decalcification bone/plaque Surgery Specimen Level III Comments: @ Ordering doctor for DEC edited from to @ samm CARLTON at 07/10/231438 @ Ordering doctor for SUIII edited from to @ samm CARLTON at 07/10/23 143 @ Submitting doctor edited from to @ samm CARLTON at 07/10/23 143 HEADER OPERATION: Incision of bone cortex with debridment repair PRE-OP DIAGNOSIS: Left foot wound TISSUE SUBMITTED: A- Tendon left foot, B- Incision of bone cortex left foot metatarsal, C- Bone biopsy left foot cuboid, D- Bone biopsy 4th metatarsal, E- Clean margin left foot MICROSCOPIC DIAGNOSIS A. Tendon of left foot, excision: Tendinous tissue with focal reactive and reparative change. B. Bone cortex left foot, biopsy: Consistent with chronic osteomyelitis. Reparative and reactive change. C. Left foot cuboid bone, bone core biopsy: Focal reparative change. No evidence of malignancy. D. Foot metatarsal bone, bone biopsy: No pathologic change. E. Clearance margin left foot bone, excision: No pathologic change. SUNDAY/ 07/16/2023 MICROSCOPIC DESCRIPTION Slides are reviewed. GROSS DESCRIPTION A. Received in fixative is one container labeled with the patient's name and designated Tendon left foot. The specimen consists of an elongated fragment of white-yusuf tendon tissue measuring 3.0 x 1.0 x 0.4cm. The specimen is serially sectioned and totally submitted in one cassette. B. Received in fixative is one container labeled with the patient's name and designated Incision of bone cortex left foot. The specimen consists of an irregular fragment of yusuf-white bone measuring 1.6 x 1.0 x 1.0cm. The specimen is sectioned and totally submitted in one cassette after decalcification. C. Received in fixative is one container labeled with the patient's name and designated Bone biopsy left foot cuboid. The specimen consists of a cylindrical fragment of yusuf bone measuring 1.3cm in length and 0.2cm in diameter. The specimen is submitted in its entirety in one cassette after decalcification. D. Received in fixative is one container labeled with the patient's name and designated Bone 4th metatarsal. The specimen consists of an irregular fragment of yusuf bone measuring 0.2 x 0.1 x 0.1cm. The specimen is submitted in its entirety in one cassette after decalcification. E. Received in fixative is one container labeled with the patient's name and designated Clean margin left foot. The specimen consists of a discoid fragment of yusuf bone measuring 1.6 x 1.0 x 0.2cm. The specimen is submitted in its entirety in one cassette after decalcification. SUNDAY/ 07/10/2023 TC:3 CPT: 78018u8,8830,[id number],[id number]
[2023-07-10] MEDS: oxyCODONE 5 MG Tablet PO (00:08)
[2023-07-10] MEDS: MELATONIN 3 MG TABLET PO (00:08)
[2023-07-10] MEDS: Ipratropium/Albuterol Sulfate 3 ML AMPUL.NEB INHALATION ×6 (03:25→23:35)
[2023-07-10] MEDS: Metoprolol Tartrate 50 MG Tablet PO ×2 (07:09→21:15)
[2023-07-10 07:17] LABS: Hematocrit 28.6 % (40-54); Hemoglobin 8.9 g/dL (13.0-16.5); Mean Corp Hgb Conc 31.1 g/dL (32-36); Mean Corpuscular Hgb 29.6 pg (27.0-32.0); Mean Platelet Vol. 9.7 fl (6.2-12.0); Platelet Count 343 K/mm3 (150-450); RBC Distribution Width CV 15.1 % (11.6-14.6); RBC Distribution Width SD 52.7 fl (35.1-43.9); Red Blood Count 3.01 M/mm3 (4.6-6.2); White Blood Count 9.1 K/mm3 (4.4-11.0)
[2023-07-10 07:46] LABS: Anion Gap 5 (5-15); BUN 20 mg/dL (7-18); BUN/Creat Ratio 11.9 RATIO (10-20); Calcium,Total 8.6 mg/dL (8.5-10.1); Chloride 103 mmol/L (98-107); Creatinine, Serum 1.68 mg/dL (0.70-1.30); EST Glomerular Filtration Rate 43 mL/min (>60); Est Glom Filt Rate - Afr Amer 52 mL/min (>60); Glucose 103 mg/dL (74-106); Potassium 4.7 mmol/L (3.5-5.1); Sodium Level 136 mmol/L (136-145)
[2023-07-10] MEDS: Lactated Ringers 1,000 ML 15 ML IV ×2 (08:11→12:29)
--- NOTE | 2023-07-10 08:15 | EKG12_ITS ---
Test Reason : CP Blood Pressure : / mmHG Vent. Rate : 087 BPM Atrial Rate : 087 BPM P-R Int : 156 ms QRS Dur : 086 ms QT Int : 352 ms P-R-T Axes : 072 046 061 degrees QTc Int : 423 ms Sinus rhythm with occasional Premature ventricular complexes Otherwise normal ECG When compared with ECG of 06-JUL-2023 11:28, Premature ventricular complexes are now Present Confirmed by JOHN OCHOA, FABIANA ([id number]), index editor KIMBERLEE BENNETT ([id number]) on 07/16/2023 6:58:15 AM Referred By: MARINA Confirmed By:LYNETTE LOPEZ MD
--- NOTE | 2023-07-10 08:26 | WOUNDNOTE ---
Pt off unit for surgery.
--- NOTE | 2023-07-10 09:10 | RAD_ITS ---
STUDY: X-RAY - LEFT FOOT CLINICAL: Male, 73 years old. Debridement. Intraoperative digital documentation views. TECHNIQUE: 5 intraoperative digital documentation view(s) of the foot. COMPARISON: Left foot images dated July 06, 2023 FINDINGS: 5 intraoperative digital documentation views were obtained. Total exposure time 8 seconds. Longest single exposure 2 seconds. Total DAP: 1.0788 cGy/cm2. Total air kerma 0.0642 mGy. RAD/Foot 2 Views IMPRESSION: Intraoperative digital documentation views. Electronically Signed: Marcos Aguirre MD at 13:07 EDT ,
[2023-07-10 09:12] LABS: Troponin-I HS 12 pg/mL (3.0-78.0)
[2023-07-10 09:14] LABS: Troponin-I HS 12 pg/mL (3.0-78.0)
[2023-07-10] MEDS: Nitroglycerin (INPATIENT USE) 0.4 MG TAB.SUBL SL (09:56)
[2023-07-10] MEDS: Bupivacaine Mpf 0.5% 30 ML VIAL (11:25)
[2023-07-10] MEDS: BACITRACIN/POLYMYXIN B 15 GM Tube 1 APPLIC (11:45)
--- NOTE | 2023-07-10 11:58 | PCM.OPRPT ---
Problems Associated Problem List Diagnoses (1) Non-pressure chronic ulcer of other part of left foot with necrosis of bone: (2) Other specified peripheral vascular diseases: (3) Other acute osteomyelitis, left ankle and foot: (4) Strain of muscle(s) and tendon(s) of peroneal muscle group at lower leg level, left leg, initial encounter: Report of Operation Date of Procedure: 07/10/23 Pre-Operative Diagnosis: 1. Non-pressure ulcer with necrosis of bone, left lower extremity 2. Peripheral vascular disease, left lower extremity 3. Osteomyelitis, left lower extremity 4. Strain of muscle peroneal brevis, left lower extremity Post-Operative Diagnosis: 1. Non-pressure ulcer with necrosis of bone, left lower extremity 2. Peripheral vascular disease, left lower extremity 3. Osteomyelitis, left lower extremity 4. Strain of muscle peroneal brevis, left lower extremity Surgery/Procedure Performed:: 1. Incision of bone cortex, left foot 2. Debridement and repair with tendon transfer, peroneus brevis tendon, left foot 3. Bone biopsies, left foot 4. Surgical skin graft site prep, left foot 5. Application of antibiotic beads, left foot 6. Application of skin graft substitute, left foot 7. Application of negative pressure wound VAC, left foot 8. Application of posterior splint, left lower extremity Description of Surgical Findings:: 1. Soft bone to the base of the fifth metatarsal, left foot 2. Hard intact cortex to the cuboid, left foot 3. Heart intact cortex to the base of the fourth metatarsal, left foot 4. Successful tendon transfer peroneus brevis to peroneus longus, left lower extremity Surgeon: Parveen Guaman [facility] services specialist: Gloria Lucas Type of Anesthesia: Block,Regional and MAC Anesthesiologist: Dutch Deleon Special Medications: Per anesthesia Specimen's removed: 1. Incision of bone cortex, fifth metatarsal base, half to pathology and half to microbiology, left foot 2. Bone biopsies, cuboid, half to pathology and half to microbiology, left foot 3. Bone biopsies, fourth metatarsal, half to pathology and half to microbiology, left foot 4. Peroneus brevis tendon, sent to pathology, left foot 5. Clean margin, fifth metatarsal, sent to pathology, left foot Drains: Negative pressure wound VAC Estimated Blood Loss (mL): 30 mL Fluids Replaced: Per anesthesia Description of Procedure: Indications For Operation: Mr. Oliva is a 73-year-old male who was admitted to [facility] for chronic osteomyelitis of the left foot to the level of the fifth metatarsal base. Patient is well-known to me at the wound care center where I was introduced to the patient after the patient had undergone an office procedure from [facility] where he had attempt to have the base of his fifth metatarsal shaved off and unfortunately ended up getting an infection which then he was referred to the wound care center for follow-up evaluation. While at the wound care center the patient had multiple excisional debridements with exposed bone and tendon to the lateral aspect of the left foot at the level of the fifth metatarsal base. The patient had completed 2 rounds of oral ciprofloxacin 750 mg twice daily. The patient did show great improvement however there was still delay in healing which suggested further investigation for bone infection. The patient was unable to have a MRI secondary to stent placement in his heart. The patient did have a three-phase bone scan which showed uptake in all 3 phases and suggested osteomyelitis to the base of the fifth metatarsal. Due to the difficulty of getting the patient cleared with his multiple comorbidities the patient was ultimately admitted to the hospital to have the medicine team, cardiology team, pulmonary team cleared the patient for the needed surgery at the level of his left foot. Due to delayed healing in the full-thickness wound in the left foot with evidence of bone infection which showed to be positive on the three-phase bone scan it had deemed necessary at this time to take the patient to the operating room to remove his infected bone and to perform the above procedure to help relieve his infection and chronic pain. The nature of the problem, anticipated procedures, postop recovery/convalences and risk/complications include but not limited to infection, wound healing complications, digital amputation, hypertrophic scarring, numbness, tingling, chronic pain, CRPS, over and under correction, recurrence of deformity, DVT and or PE and the need for further surgery have been discussed in great detail with the patient. All questions have been answered to the patient's satisfaction. There are no guarantees given as to the outcome of the procedure. Description of Procedure: Under mild sedation, the patient was brought into the operating room and placed on the operating table in supine position. Once the patient was under monitored anesthesia care anesthesia, the left lower extremity was blocked via popliteal block per the anesthesia team. Please see anesthesia notes for further detail. The patient's left lower extremity was blocked in the operating room with additional 10 cc of 0.5% Marcaine plain to the level of the saphenous nerve. Next, a well-padded calf tourniquet was applied to the left lower extremity. Next, the left lower extremity was prepped and draped in normal aseptic manner. Next, a timeout was then undertaken verifying the correct patient, extremity, visibility of preoperative markings, availability of the equipment. Next, attention was directed to the left lower extremity. Using a 6 Esmarch, left lower extremity was exsanguinated and elevated to 60 degrees for 1 minute. Procedure #1: Peroneal brevis debridement and transfer, left lower extremity Next attention was directed to the level of the peroneal tendons of the left foot. Using a sterile skin marker the incision was marked out in a hockey shaped form distally straight and proximally curved along the course of the peroneal tendons. Using a #15 blade a full-thickness incision down to subcutaneous tissue was carried out along the marked incision. Continued blunt dissection was carried down to the level of the peroneal sheath. Using a freer elevator the sheath was violated and allowed the Audubon elevator to course the path of the peroneal tendons. Using the 15 blade the sheath was exposed on top of the freer elevator with care not to violate the peroneal tendons. The peroneus brevis and longus were both expected and showed no evidence of tearing or violation during dissection. The base of the peroneus brevis was freed from its insertion along the base of the styloid process of the fifth metatarsal. The diseased portion of the peroneus tendon was resected with electrocautery and passed the back table to be sent off for pathology evaluation. The foot was placed in a 90 degree fashion and the peroneus brevis was debrided and repaired then transferred to peroneal longus securing the tendons together with 2-0 PDS in baseball stitch fashion. The incision was flushed with copious normal saline. The peroneal sheath was closed with 3-0 Monocryl and running locking suture technique. Procedure #2: Incision bone cortex, fifth metatarsal, left foot Next, attention was directed to the full-thickness ulceration at the level of the fifth metatarsal base. An additional incision was carried out distally along the diaphysis of the fifth metatarsal. Blunt dissection was continued to the level of bone with Metzenbaum scissors. A quigley elevator was used to remove all soft tissue attachments from the diaphysis and base of the fifth metatarsal. Using sagittal saw and #111 blade a perpendicular cut was made along the distal aspect of the diaphysis of the fifth metatarsal. Using a bone clamp and 15 blade the base of the fifth metatarsal was disarticulated cleanly and passed the back table to be half to pathology and half to microbiology for culture and sensitivity. Next, using the sagittal saw and #111 blade, a clear margin was taken from the remaining intact distal metatarsal which was passed the back table to be sent off for pathology. Mini C arm fluoroscopy confirmed complete removal of the fifth metatarsal base and clean margin. Procedure #3: Bone biopsies, cuboid and fourth metatarsal, left foot Next, copious dong of normal saline were used to flush the incision at this time. Next using a Jamshidi needle to bone biopsies were taken from the cuboid and 2 bone biopsies were taken from the fourth metatarsal, the biopsies were passed the back table to both be sent off for half to pathology and half to microbiology for culture and sensitivity. Procedure #4: Surgical skin graft site prep, left foot Next, attention was directed to the level of the full-thickness incision and ulceration, using the BlueYield ultrasonic debriding system, surgical skin graft site prep was performed at the level of the incision and full-thickness ulceration removing all necrotic tissue. After debridement there showed evidence of 100% granular tissue with no evidence of malodor or necrotic tissue at this time. Next, the deep layer were closed with 3-0 Monocryl and running locking suture technique. The subcutaneous was reapproximated and closed using 3-0 Monocryl in running suture technique. Let it be noted, that there was a deficit secondary to removal of the base of the fifth metatarsal and pre-existing full-thickness ulceration. At this time the tourniquet was deflated and reperfusion was instantly noted to the left lower extremity. All necessary bleeders were cauterized and ligated as necessary. Again, the full-thickness wound was flushed with copious dong of normal saline. Gelfoam was packed in the deficit to control bleeding. Ultimately the Gelfoam was removed. Procedure #5: Application of antibiotic beads, left foot Next, using the manufactures recommendation Jessup Foldees OsteoSet beads were prepared on the back table with tobramycin 1.2 g powder. The beads were set up per the deck worker's recommendation. Once the beads had cured they were placed in the in the deficit at the level of the cuboid and fourth metatarsal as well as the remaining fifth metatarsal. Procedure #6: Application of skin graft substitute, left foot Next, attention was directed to the full-thickness ulceration after the skin was closed. A 5 cm x 5 cm Integra bilayer was applied to the full-thickness ulceration per the deck worker's recommendation and secured in place with 3-0 Monocryl and simple interrupted suture technique. Next, all incisions distally and proximally from the skin graft substitute were closed with 3-0 nylon in simple interrupted suture technique. Procedure #7: Application of negative pressure wound VAC, left foot Next, a negative pressure KCI wound VAC was applied to the left lower extremity per the deck worker's recommendation. The black foam was bridged to the dorsum foot to decrease any type of pressure sore that could happen if the suction device was placed laterally on the foot. The seal was checked and showed good seal per the negative pressure wound VAC device. Procedure #8: Application of posterior splint, left lower extremity The exposed incision outside of the wound VAC were dressed with triple ointment antibiotic and Adaptic followed by dry sterile dressing and a single layer Stockton posterior splint was applied to the left lower extremity in 90 degree fashion. The patient tolerated the procedure and anesthesia well and apparent satisfactory condition and was transported to the PACU for further monitoring prior to discharge back to the floor. Vital signs stable and vascular status intact to all digits bilateral. Post Operative Plan: Weightbearing: No weightbearing to the left lower extremity with assistance of crutches, walker or knee scooter. Full weightbearing right lower extremity. Antibiotics: PICC line antibiotics meropenem DVT Prophylaxis: SCDs Braun: None Dressing: Negative pressure wound VAC, joint antibiotic, Adaptic, dry sterile dressing single-layer Stockton posterior splint at 90 degrees X-Rays: Post-operative films taken on the operating room. Pain Medication: Oxycodone 5 mg p.o. every 4 hours as needed, hydromorphone 0.5 mg IV every 3 hours as needed Follow-up: Patient will follow-up [address] Guaman at the wound care center. Once the patient is cleared by medicine team as well as infectious disease the patient is cleared from a podiatry perspective to be discharged home versus alf facility for continued care with home health care for wound VAC changes Thursday and Thursday. The patient will have wound VAC changes at the wound care center every Thursday at follow-up. Grafts/Implants Used: 1. Barkley medical antibiotic beads, 2. Integra bilayer Complications None Admit VTE Documentation VTE Present on Admission: No VTE Mechan Device Prophylaxis: SCD's VTE Pharm Prophylaxis ordered?: Yes
[2023-07-10] MEDS: Docusate Sodium 100 MG Capsule PO (13:34)
[2023-07-10] MEDS: Folic Acid 1 MG Tablet PO (13:34)
[2023-07-10] MEDS: predniSONE 10 MG Tablet PO (13:35)
[2023-07-10] MEDS: Sucralfate 1 GM Tablet PO ×2 (13:36→16:25)
[2023-07-10] MEDS: busPIRone 15 MG TABLET PO ×2 (13:36→21:12)
[2023-07-10] MEDS: Pantoprazole Sodium 40 MG Tablet PO (13:36)
[2023-07-10] MEDS: Acetaminophen 500 MG Tablet 1000 MG PO ×2 (13:37→21:12)
[2023-07-10] MEDS: Heparin Injection (Vial) 5,000 UNIT/ML VIAL 5000 UNIT SC ×2 (13:37→21:15)
[2023-07-10] MEDS: Meropenem 1 GM in 0.9% Normal Saline (100mL MB+) 100 ML IV ×2 (13:45→21:15)
--- NOTE | 2023-07-10 14:07 | CASEMGMT ---
Addendum entered by Danay Gabriel 07/10/23 14:20: TIFFANY WALKER into pt room, pt states he still wants to go home. Pt has not worked with therapy post op. He states his will do IVT at home. Provided pt with a verbal local in network list of infusion companies, pt chose [facility]. TC to pt , she confirms she would be willing to learn IVT. Discussed HHC with her and answered questions she has. Referral sent to [facility] via [facility] at this time. Original Note: Spoke with wound nurse, wound vac is not approved yet. [facility] to make aware that pt will be here through weekend as vac has not been approved yet. They are aware pt will need SOC on Thursday morning as pt will need IV therapy at home. Faxed rx at this time.
[2023-07-10] MEDS: Ondansetron 4 MG/2 ML Vial IV (14:10)
--- NOTE | 2023-07-10 14:18 | WOUNDNOTE ---
Home VAC not approved yet. all required paperwork has been sent.
--- NOTE | 2023-07-10 14:34 | PN.HOSP_ITS ---
Reason for Visit Reason for Visit: Left foot wound Subjective Subjective Patient recently back from OR. Denies any current complaints. Objective Data Objective Data Vital Signs: Vital Signs Temp Pulse Resp BP Pulse Ox O2 Del Method O2 Flow Rate 97.8 F 92 16 108/76 100 Nasal Cannula 3 07/10/23 13:18 07/10/23 13:18 07/10/23 13:22 07/10/23 13:18 07/10/23 13:18 07/10/23 13:22 07/10/23 13:22 Oxygen Flow Rate (L/min) 3 Oxygen Delivery Method Nasal Cannula Weight: 68.2 kg Body Mass Index (BMI) 22.2 Intake & Output: Intake and Output for Last 24 Hours 07/08/23 07/09/23 07/10/23 23:59 23:59 23:59 Intake Total 400 / 840 900 / 1340 624.5 / 624.5 Output Total 1300 / 1300 700 / 1075 1300 / 1300 Balance -900 / -460 200 / 265 -675.5 / -675.5 Medical Nutrition Assessment Dietitian: Malnutrition Criteria Met Start: 07/06/23 15:50 Freq: Status: Active Protocol: Document 07/06/23 15:50 SLA (Rec: 07/06/23 15:50 SLA ) Nutrition Malnutrition Evidence of Malnutrition Exists Yes Malnutrition (severe): Acute Illness/Injury Evidenced By Suboptimal Energy Intake ( Severe),Weight Loss (Severe), Physical Changes (Mild) Intake Problem Increased Nutrient Needs (specify) Etiology protein related to skin status Signs/Symptoms as evidenced by L foot osteomyelitis/wound Status Active Problem Clinical Problem Acute Disease or Injury Related Malnutrition Etiology related to inadequate oral energy intake Signs/Symptoms as evidenced by 8.2% unintentional wt loss, po intake < 50% of est nutritional needs and mild fat /muscle loss in face/arms Status Active Problem Recommendation Dietitian Recommendations/Changes Will liberalize diet to Regular d/t signs/symptoms of malnutrition Will add vanilla/peanut butter ensure plus high protein with lunch Will order Bora bid w/ medpass for increased nutrition if consumed. Lab / Micro Data 07/10/23 06:40 07/10/23 06:40 Labs: Laboratory Results - last 24 hr 07/10/23 06:40: WBC 9.1, RBC 3.01 L, Hgb 8.9 L, Hct 28.6 L, MCV 95.0 H, MCH 29.6, MCHC 31.1 L, RDW Std Deviation 52.7 H, RDW Coeff of Meek 15.1 H, Plt Count 343, MPV 9.7, Sodium 136, Potassium 4.7, Chloride 103, Carbon Dioxide 28.0, Anion Gap 5, BUN 20 H, Creatinine 1.68 H, Estim Creat Clear Calc 38.90, Est GFR (MDRD) Af Amer 52 L, Est GFR (MDRD) Non-Af 43 L, BUN/Creatinine Ratio 11.9, Glucose 103, Calcium 8.6, Troponin I High Sens 12 07/10/23 08:47: Troponin I High Sens 12 Micro: Microbiology 07/10/23 12:38 Bone - Left Foot Gram Stain - Final 07/10/23 12:38 Bone - 4th Metatarsal Bone Gram Stain - Final 07/06/23 14:55 Wound - Left Foot Gram Stain - Final 07/06/23 14:55 Wound - Left Foot Wound Culture - Final Staphylococcus aureus Radiography Diagnostic Testing: Radiology Impression Foot X-Ray 07/10/23 09:10 IMPRESSION: Intraoperative digital documentation views. Electronically Signed: Marcos Aguirre MD at 13:07 EDT Reading Location ID and State: [address] [place] [address] , Service support , Rhythm Strip Rhythm Strip: Sinus Rhythm Rate: 82 Ectopy: None Physical Exam Const alert, oriented x3, no apparent distress and average body habitus; Negative for healthy appearing or well nourished Constitutional Narrative: Pleasant, older, white male, sitting up in bed, nursing at bedside, has just returned from the OR, appears comfortable, nontoxic, extremely pleasant General Appearance: cooperative HEENT normocephalic, head/scalp atraumatic and moist oral mucous membranes HEENT Narrative: Dentition is poor, Mallampati is 2, no thrush Resp normal respiratory effort, no retractions, no use of accessory muscles and clear to auscultation bilaterally Resp Narrative: Markedly diminished diffusely but no adventitious sounds noted Auscultation: Negative for rales, rhonchi or wheezes Cardio regular rate, regular rhythm, S1 normal heart sound, S2 normal heart sound, no murmurs, no rub, no gallops and no clicks GI normal to inspection, nondistended, normoactive bowel sounds, soft to palpation and non-tender Extremity no clubbing, cyanosis or edema Extremity Narrative: Postoperative dressing in place with wound VAC in place left lower extremity, right lower extremity without edema, no cyanosis or clubbing noted Neuro oriented x3, moves all extremities and no focal motor deficits Speech: speech normal Psych affect normal Psych Narrative: Pleasant Assessment & Plan Assessment/Plan (1) Wound of left foot: (2) Acute osteomyelitis of left foot: (3) Acute on chronic anemia: (4) Chronic anticoagulation: (5) CKD stage 3b, GFR 30-44 ml/min: PLAN: Plan Left foot wound with acute osteomyelitis secondary to MSSA/Enterococcus -PICC placed -Plan is for 6 weeks of IV antibiotics (meropenem) with a stop date of 08/21/2023 -Postop day 0 incision of bone cortex/debridement with tendon repair and transfer/bone biopsies/surgical graft site/application of antibiotic beads and VAC placement -Okay to discharge home from podiatry's view whenever everything can be set up for home health care and he is medically cleared -Scheduled Tylenol 1 g every 8 -As needed oxycodone -As needed Dilaudid -Continue nonweightbearing to left lower extremity -PT/OT to evaluate to assist with gait training -Restart Eliquis and aspirin when okay with surgery and GI -Preoperative EKG without any changes or concerning findings--> patient appears to be medically optimized from a cardiac standpoint -Pulmonary medicine has cleared patient from a pulmonary standpoint and feels he is medically optimized Acute on chronic anemia secondary to esophageal ulcers -EGD performed on 07/07/2023 and he was found to have oozing esophageal ulcers that were treated with coagulation for hemostasis with heater probe and biopsies were taken, stomach was normal and there was erythematous duodenopathy -Hemoglobin remains stabilized at 8.0-9.0--> may drop a little bit tomorrow being postoperative -Baseline appears to be between 11 and 12 -Continue Protonix 40 mg twice daily but transition to oral -Continue home Carafate -Will hold aspirin for a total of 7 days -Restart Eliquis when okay with podiatry -GI is considering colonoscopy as he does have history of ulcerations in his cecum and terminal ileum but will watch hemoglobin for now--> will plan for outpatient colonoscopy as long as hemoglobin remained stable -Appreciate GI input CKD stage IIIb -Baseline serum creatinine in the last several months has been between 2.3 and 2.6 -Currently 2.33 at the time of admission and stable at 1.68 -Will continue to monitor -Continue to hold lisinopril -Blood pressure seem to be fairly well-controlled without it at this point anyway -May need to consider discontinuation at discharge with transition to an alternative if blood pressures require -Would recommend discontinuation of Aleve at the time of discharge -Refer to nephrology after discharge Restless leg syndrome -Patient states that this has been an ongoing long-term problem for him -Iron deficiency related to GI bleed may contribute as well with a lower ferritin -Continue Mirapex 0.5 mg nightly Constipation -Patient is scheduled Colace and will add scheduled MiraLAX -Will likely need to back off once he starts bowel movements to avoid diarrhea History of VTE -Restart apixaban when okay with podiatry -Restart when medically stable to do so and okay with gastroenterology Chronic hypoxic respiratory failure secondary to COPD -Patient is still smoking about a half a pack of cigarettes a day however he had been smoking up to 4 packs of cigarettes a day previously -Continue home inhalers -As needed albuterol -Incentive spirometry -On 3 L at baseline and stable on this at this time -Pulmonary medicine has indicated that he is optimized from a respiratory standpoint for surgery -Would suggest block with twilight sedation for surgery and avoid mechanical ventilation -Continue chronic prednisone Hypertension -Continue home metoprolol -Hold lisinopril perioperatively as well as with elevated serum creatinine -Will likely discontinue altogether at discharge based on current blood pressure measurements -As needed hydralazine for systolic pressure greater than 160 History of gastric ulcers -Continue Carafate -Continue Protonix 40 mg p.o. twice daily Hyperlipidemia -Continue home pravastatin Tobacco abuse -Patient still smoking -nicotine patch available -Recommend cessation DVT prophylaxis -SCDs -Chemoprophylaxis contraindicated due to upcoming surgery and anemia CODE STATUS -Full code is verified with the patient prior to admission Charges/Coding Visit Charges Inpatient E&M: 68274 Subs Hosp L2
[2023-07-10] MEDS: HYDROmorphone 0.5 MG/0.5 ML SYRINGE IV (19:07)
[2023-07-10] MEDS: 0.9% Saline Lock 10 ML Syringe IV ×2 (19:08→21:16)
[2023-07-10] MEDS: Pravastatin 20 MG Tablet 10 MG PO (21:13)
[2023-07-10] MEDS: Pramipexole Di-HCl 0.5 MG Tablet PO (21:14)
[2023-07-11] VITALS (14 sets, daily range): BP systolic 102–130; BP diastolic 60–76; PULSE 82–113; RESP 14–20; TEMP 36.3–37.1; O2SAT 94–100
[2023-07-11] MEDS: Ipratropium/Albuterol Sulfate 3 ML AMPUL.NEB INHALATION ×6 (02:54→23:20)
[2023-07-11] MEDS: Heparin Injection (Vial) 5,000 UNIT/ML VIAL 5000 UNIT SC (05:47)
[2023-07-11] MEDS: busPIRone 15 MG TABLET PO ×3 (05:47→21:12)
[2023-07-11] MEDS: Sucralfate 1 GM Tablet PO ×3 (05:47→16:31)
[2023-07-11] MEDS: oxyCODONE 5 MG Tablet PO (05:47)
[2023-07-11] MEDS: Acetaminophen 500 MG Tablet 1000 MG PO ×3 (05:48→21:12)
--- NOTE | 2023-07-11 06:57 | NURSING ---
Patient is angry, because this RN took his home inhaler from him and locked it in his med drawer. RN explained that he is not allowed to have at the bedside and that repiratory is giving him breathing treatments. When he feels the need to use the inhaler, press the call light and we will gladly call repiratory to get a breathing treatment. Patient said that respiratory told him that he could use it between treatments. This RN said if someone said that, they were mistaken. We need to keep track how often a breathing treatment is needed and that home inhaler will be given back at discharge. Patient remained angry and said he will get it back before then.
[2023-07-11 07:37] LABS: Hematocrit 34.6 % (40-54); Hemoglobin 10.2 g/dL (13.0-16.5); Mean Corp Hgb Conc 29.5 g/dL (32-36); Mean Corpuscular Hgb 29.2 pg (27.0-32.0); Mean Corpuscular Volume 99.1 fL (80-94); Mean Platelet Vol. 11.1 fl (6.2-12.0); Platelet Count 279 K/mm3 (150-450); RBC Distribution Width CV 15.2 % (11.6-14.6); RBC Distribution Width SD 55.3 fl (35.1-43.9); Red Blood Count 3.49 M/mm3 (4.6-6.2); White Blood Count 13.9 K/mm3 (4.4-11.0)
[2023-07-11 08:20] LABS: Anion Gap 6 (5-15); BUN 23 mg/dL (7-18); BUN/Creat Ratio 11.7 RATIO (10-20); Chloride 102 mmol/L (98-107); Creatinine, Serum 1.97 mg/dL (0.70-1.30); EST Glomerular Filtration Rate 36 mL/min (>60); Est Glom Filt Rate - Afr Amer 43 mL/min (>60); Estimated Creatinine Clearance 33.18 ml/min; Glucose 120 mg/dL (74-106); Potassium 4.8 mmol/L (3.5-5.1); Sodium Level 132 mmol/L (136-145)
[2023-07-11] MEDS: Folic Acid 1 MG Tablet PO (09:16)
[2023-07-11] MEDS: Pantoprazole Sodium 40 MG Tablet PO ×2 (09:16→21:12)
[2023-07-11] MEDS: Metoprolol Tartrate 50 MG Tablet PO ×2 (09:16→21:11)
[2023-07-11] MEDS: predniSONE 10 MG Tablet PO (09:16)
[2023-07-11] MEDS: Polyethylene Glycol 3350 17 GM PACKET PO (09:16)
[2023-07-11] MEDS: Docusate Sodium 100 MG Capsule PO ×2 (09:16→21:11)
[2023-07-11] MEDS: Meropenem 1 GM in 0.9% Normal Saline (100mL MB+) 100 ML IV ×2 (09:24→21:14)
--- NOTE | 2023-07-11 12:10 | PN.HOSP_ITS ---
Reason for Visit Reason for Visit: Left foot wound/osteomyelitis Subjective Subjective Patient has no complaints at this time other than he is having some right-sided neck and shoulder pain. Understands that we are waiting for insurance authorization for his VAC for him to be able to discharge. Having really no pain at his foot. Objective Data Objective Data Vital Signs: Vital Signs Temp Pulse Resp BP Pulse Ox O2 Del Method O2 Flow Rate 97.8 F 84 18 102/60 100 Nasal Cannula 3 07/11/23 09:00 07/11/23 11:06 07/11/23 11:06 07/11/23 09:00 07/11/23 09:00 07/11/23 09:00 07/11/23 09:00 Oxygen Flow Rate (L/min) 3 Oxygen Delivery Method Nasal Cannula Weight: 68.2 kg Body Mass Index (BMI) 22.2 Intake & Output: Intake and Output for Last 24 Hours 07/09/23 07/10/23 07/11/23 23:59 23:59 23:59 Intake Total 900 / 1340 744.5 / 744.5 120 / 120 Output Total 700 / 1075 1650 / 1650 300 / 300 Balance 200 / 265 -905.5 / -905.5 -180 / -180 Medical Nutrition Assessment Dietitian: Malnutrition Criteria Met Start: 07/06/23 15:50 Freq: Status: Active Protocol: Document 07/06/23 15:50 SLA (Rec: 07/06/23 15:50 SLA ) Nutrition Malnutrition Evidence of Malnutrition Exists Yes Malnutrition (severe): Acute Illness/Injury Evidenced By Suboptimal Energy Intake ( Severe),Weight Loss (Severe), Physical Changes (Mild) Intake Problem Increased Nutrient Needs (specify) Etiology protein related to skin status Signs/Symptoms as evidenced by L foot osteomyelitis/wound Status Active Problem Clinical Problem Acute Disease or Injury Related Malnutrition Etiology related to inadequate oral energy intake Signs/Symptoms as evidenced by 8.2% unintentional wt loss, po intake < 50% of est nutritional needs and mild fat /muscle loss in face/arms Status Active Problem Recommendation Dietitian Recommendations/Changes Will liberalize diet to Regular d/t signs/symptoms of malnutrition Will add vanilla/peanut butter ensure plus high protein with lunch Will order Bora bid w/ medpass for increased nutrition if consumed. Lab / Micro Data 07/11/23 07:06 07/11/23 07:06 Labs: Laboratory Results - last 24 hr 07/11/23 07:06: WBC 13.9 H, RBC 3.49 L, Hgb 10.2 L, Hct 34.6 L, MCV 99.1 H, MCH 29.2, MCHC 29.5 L D, RDW Std Deviation 55.3 H, RDW Coeff of Meek 15.2 H, Plt Count 279, MPV 11.1, Sodium 132 L, Potassium 4.8, Chloride 102, Carbon Dioxide 24.0, Anion Gap 6, BUN 23 H, Creatinine 1.97 H, Estim Creat Clear Calc 33.18, E st GFR (MDRD) Af Amer 43 L, Est GFR (MDRD) Non-Af 36 L, BUN/Creatinine Ratio 11.7, Glucose 120 H, Calcium 9.0 Micro: Microbiology 07/10/23 12:38 Bone - 4th Metatarsal Bone Gram Stain - Final 07/10/23 12:38 Bone - 4th Metatarsal Bone Wound Culture - Preliminary Mixed Gram Pos & Gram Neg Org 07/10/23 12:38 Bone - Left Foot Gram Stain - Final 07/10/23 12:38 Bone - Left Foot Wound Culture - Preliminary Gram negative tom 07/10/23 12:38 Bone - 5th Toe Wound Culture - Preliminary Mixed Gram Pos & Gram Neg Org 07/06/23 14:55 Wound - Left Foot Gram Stain - Final 07/06/23 14:55 Wound - Left Foot Wound Culture - Final Staphylococcus aureus Radiography Diagnostic Testing: Radiology Impression Foot X-Ray 07/10/23 09:10 IMPRESSION: Intraoperative digital documentation views. Electronically Signed: Marcos Aguirre MD at 13:07 EDT , Rhythm Strip Rhythm Strip: Sinus Rhythm Rate: 82 Ectopy: None Physical Exam Const alert, oriented x3, no apparent distress and average body habitus; Negative for healthy appearing or well nourished Constitutional Narrative: Pleasant, older, white male, sitting up in a chair at the bedside reclined watching television, appears comfortable, nontoxic, extremely pleasant General Appearance: cooperative HEENT normocephalic, head/scalp atraumatic and moist oral mucous membranes HEENT Narrative: Dentition is poor, Mallampati is 2-3, no thrush Resp normal respiratory effort, no retractions, no use of accessory muscles and clear to auscultation bilaterally Resp Narrative: Markedly diminished diffusely but no adventitious sounds noted Auscultation: Negative for rales, rhonchi or wheezes Cardio regular rate, regular rhythm, S1 normal heart sound, S2 normal heart sound, no murmurs, no rub, no gallops and no clicks GI normal to inspection, nondistended, normoactive bowel sounds, soft to palpation and non-tender Extremity no clubbing, cyanosis or edema Extremity Narrative: Postoperative dressing in place with wound VAC in place left lower extremity, right lower extremity without edema, no cyanosis or clubbing noted Neuro oriented x3, moves all extremities and no focal motor deficits Speech: speech normal Psych affect normal Psych Narrative: Pleasant Assessment & Plan Assessment/Plan (1) Wound of left foot: (2) Acute osteomyelitis of left foot: (3) Acute on chronic anemia: (4) Chronic anticoagulation: (5) CKD stage 3b, GFR 30-44 ml/min: PLAN: Plan Left foot wound with acute osteomyelitis secondary to MSSA/Enterococcus -PICC placed -Plan is for 6 weeks of IV antibiotics (meropenem) with a stop date of 08/21/2023 -Postop day 1 incision of bone cortex/debridement with tendon repair and transfer/bone biopsies/surgical graft site/application of antibiotic beads and VAC placement -Okay to discharge home from podiatry's view whenever everything can be set up for home health care and he is medically cleared -Patient is cleared medically however waiting for insurance to authorize VAC -Scheduled Tylenol 1 g every 8 -As needed oxycodone -As needed Dilaudid -Continue nonweightbearing to left lower extremity -PT/OT are following -Restart Eliquis today Acute on chronic anemia secondary to esophageal ulcers -EGD performed on 07/07/2023 and he was found to have oozing esophageal ulcers that were treated with coagulation for hemostasis with heater probe and biopsies were taken, stomach was normal and there was erythematous duodenopathy -Biopsies showed no acute pathology in the duodenum and distal esophagus showed mild chronic inflammation but no evidence of goblet cell metaplasia -Hemoglobin remains stabilized at 8.0-9.0--> may drop a little bit tomorrow being postoperative -Baseline appears to be between 11 and 12 -Continue Protonix 40 mg twice daily but transition to oral -Continue home Carafate -Will hold aspirin for a total of 7 days--> start date will be 07/15/2023 -Restart home Eliquis and monitor hemoglobin closely -GI is considering colonoscopy as he does have history of ulcerations in his cecum and terminal ileum but will watch hemoglobin for now--> will plan for outpatient colonoscopy as long as hemoglobin remained stable -Appreciate GI input Right-sided neck and shoulder pain -Musculoskeletal in nature and suspect cervical radiculopathy -Patient has as needed pain medication as above -Will start low-dose gabapentin -K-pad as needed CKD stage IIIb -Baseline serum creatinine in the last several months has been between 2.3 and 2.6 -Currently 1.97 and 2.33 on admission -Will continue to monitor -Discontinue lisinopril at discharge -Discontinue naproxen/Aleve at discharge -Refer to nephrology after discharge Restless leg syndrome -Patient states that this has been an ongoing long-term problem for him -Iron deficiency related to GI bleed may contribute as well with a lower ferritin -Continue Mirapex 0.5 mg nightly Constipation -Continue Colace and MiraLAX -Will likely need to back off once he starts bowel movements to avoid diarrhea History of VTE -Restart apixaban Chronic hypoxic respiratory failure secondary to COPD -Patient is still smoking about a half a pack of cigarettes a day however he had been smoking up to 4 packs of cigarettes a day previously -Educated on importance of cessation with regards to overall health and wound healing -Continue home inhalers -As needed albuterol -Incentive spirometry -On 3 L at baseline and stable on this at this time -Continue chronic prednisone -Ongoing outpatient pulmonary medicine follow-up after discharge as previously recommended Hypertension -Continue home metoprolol -Will discontinue lisinopril altogether at discharge as blood pressures were not elevated -As needed hydralazine for systolic pressure greater than 160 History of gastric ulcers -Continue Carafate -Continue Protonix 40 mg p.o. twice daily Hyperlipidemia -Continue home pravastatin Tobacco abuse -Patient still smoking -nicotine patch available -Recommend cessation DVT prophylaxis -Discontinue heparin -Start apixaban CODE STATUS -Full code is verified with the patient prior to admission Charges/Coding Visit Charges Inpatient E&M: 40394 Subs Hosp L2
[2023-07-11] MEDS: Gabapentin 100 MG Capsule 200 MG PO ×2 (12:13→16:31)
[2023-07-11] MEDS: APIXABAN 5 MG TABLET PO ×2 (14:22→21:12)
[2023-07-11] MEDS: Pravastatin 20 MG Tablet 10 MG PO (21:12)
[2023-07-11] MEDS: Pramipexole Di-HCl 0.5 MG Tablet PO (21:12)
[2023-07-12] VITALS (12 sets, daily range): BP systolic 115–125; BP diastolic 65–84; PULSE 72–95; RESP 13–18; TEMP 36.3–36.9; O2SAT 94–100; BMI 22.1
[2023-07-12] MEDS: oxyCODONE 5 MG Tablet PO ×3 (01:06→16:59)
[2023-07-12] MEDS: HYDROmorphone 0.5 MG/0.5 ML SYRINGE IV ×2 (01:47→08:23)
[2023-07-12] MEDS: Ipratropium/Albuterol Sulfate 3 ML AMPUL.NEB INHALATION ×6 (03:32→23:01)
[2023-07-12] MEDS: Sucralfate 1 GM Tablet PO ×3 (05:22→16:46)
[2023-07-12] MEDS: Acetaminophen 500 MG Tablet 1000 MG PO ×3 (05:22→21:32)
[2023-07-12] MEDS: busPIRone 15 MG TABLET PO ×3 (05:22→21:32)
[2023-07-12 06:04] LABS: Hematocrit 26.6 % (40-54); Hemoglobin 8.1 g/dL (13.0-16.5); Mean Corp Hgb Conc 30.5 g/dL (32-36); Mean Corpuscular Hgb 29.1 pg (27.0-32.0); Mean Corpuscular Volume 95.7 fL (80-94); Mean Platelet Vol. 10.3 fl (6.2-12.0); Platelet Count 310 K/mm3 (150-450); RBC Distribution Width CV 15.4 % (11.6-14.6); Red Blood Count 2.78 M/mm3 (4.6-6.2)
[2023-07-12 06:29] LABS: Anion Gap 6 (5-15); BUN 35 mg/dL (7-18); Calcium,Total 8.4 mg/dL (8.5-10.1); Chloride 104 mmol/L (98-107); Creatinine, Serum 2.06 mg/dL (0.70-1.30); EST Glomerular Filtration Rate 34 mL/min (>60); Est Glom Filt Rate - Afr Amer 41 mL/min (>60); Estimated Creatinine Clearance 31.54 ml/min; Glucose 105 mg/dL (74-106); Potassium 4.6 mmol/L (3.5-5.1); Sodium Level 136 mmol/L (136-145)
--- NOTE | 2023-07-12 08:15 | PN.SURG_ITS ---
Subjective Subjective Mr. Oliva is a 73-year-old male seen at bedside today status post incision bone cortex, debridement and repair as well as transfer of the peroneus brevis tendon, bone biopsies, surgical skin graft site prep, application of antibiotic beads, application of skin graft substitute, application of negative pressure wound VAC with application of posterior splint of the left lower extremity. DOS: 07/10/2023. Patient is improving well. No acute events overnight. He rates his pain as 1 out of 10 on the pain scale to left lower extremity. He is continue to be nonweightbearing to the left lower extremity. He continues to work with PT/OT. We are waiting approval for the negative pressure wound VAC through his insurance. He denies any trauma. Denies constitutional symptoms. No other pedal complaints at this time. Objective Data Objective Data Vital Signs: Vital Signs Temp Pulse Resp BP Pulse Ox O2 Del Method O2 Flow Rate 98.5 F 76 16 125/65 H 99 Nasal Cannula 3 07/12/23 02:00 07/12/23 06:58 07/12/23 06:58 07/12/23 02:00 07/12/23 06:58 07/12/23 06:58 07/12/23 06:58 Oxygen Flow Rate (L/min) 3 Oxygen Delivery Method Nasal Cannula Weight: 67.8 kg Body Mass Index (BMI) 22.1 Intake & Output: Intake and Output for Last 24 Hours 07/10/23 07/11/23 07/12/23 23:59 23:59 23:59 Intake Total 744.5 / 744.5 240 / 240 120 / 120 Output Total 1650 / 1650 750 / 1100 625 / 625 Balance -905.5 / -905.5 -510 / -860 -505 / -505 Medical Nutrition Assessment Dietitian: Malnutrition Criteria Met Start: 07/06/23 15:50 Freq: Status: Active Protocol: Document 07/06/23 15:50 MICHELLE (Rec: 07/06/23 15:50 MICHELLE ) Nutrition Malnutrition Evidence of Malnutrition Exists Yes Malnutrition (severe): Acute Illness/Injury Evidenced By Suboptimal Energy Intake ( Severe),Weight Loss (Severe), Physical Changes (Mild) Intake Problem Increased Nutrient Needs (specify) Etiology protein related to skin status Signs/Symptoms as evidenced by L foot osteomyelitis/wound Status Active Problem Clinical Problem Acute Disease or Injury Related Malnutrition Etiology related to inadequate oral energy intake Signs/Symptoms as evidenced by 8.2% unintentional wt loss, po intake < 50% of est nutritional needs and mild fat /muscle loss in face/arms Status Active Problem Recommendation Dietitian Recommendations/Changes Will liberalize diet to Regular d/t signs/symptoms of malnutrition Will add vanilla/peanut butter ensure plus high protein with lunch Will order Bora bid w/ medpass for increased nutrition if consumed. Lab / Micro Data Attestation: I reviewed the patient's lab results. 07/12/23 05:18 07/12/23 05:18 Labs: Laboratory Results - last 24 hr 07/11/23 07:06: Sodium 132 L, Potassium 4.8, Chloride 102, Carbon Dioxide 24.0, Anion Gap 6, BUN 23 H, Creatinine 1.97 H, Estim Creat Clear Calc 33.18, Est GFR (MDRD) Af Amer 43 L, Est GFR (MDRD) Non-Af 36 L, BUN/Creatinine Ratio 11.7, G lucose 120 H, Calcium 9.0 07/12/23 05:18: WBC 10.0, RBC 2.78 L, Hgb 8.1 L, Hct 26.6 L, MCV 95.7 H, MCH 29.1, MCHC 30.5 L, RDW Std Deviation 54.0 H, RDW Coeff of Meek 15.4 H, Plt Count 310, MPV 10.3, Sodium 136, Potassium 4.6, Chloride 104, Carbon Dioxide 26.0, Anion Gap 6, BUN 35 H, Creatinine 2.06 H, Estim Creat Clear Calc 31.54, Est GFR (MDRD) Af Amer 41 L, Est GFR (MDRD) Non-Af 34 L, BUN/Creatinine Ratio 17.0, Glucose 105, Calcium 8.4 L Micro: Microbiology 07/10/23 12:38 Bone - Left Foot Gram Stain - Final 07/10/23 12:38 Bone - Left Foot Wound Culture - Preliminary Gram negative tom 07/10/23 12:38 Bone - Left Foot Anaerobic Culture - Preliminary No growth in 48 hours. 07/10/23 12:38 Bone - 4th Metatarsal Bone Gram Stain - Final 07/10/23 12:38 Bone - 4th Metatarsal Bone Wound Culture - Preliminary Mixed Gram Pos & Gram Neg Org 07/10/23 12:38 Bone - 5th Toe Wound Culture - Preliminary Mixed Gram Pos & Gram Neg Org 07/06/23 14:55 Wound - Left Foot Gram Stain - Final 07/06/23 14:55 Wound - Left Foot Wound Culture - Final Staphylococcus aureus Rhythm Strip Rhythm Strip: Sinus Rhythm Rate: 82 Ectopy: None Physical Exam Narrative Vascular: DP PT pulses are palpable left lower extremity. CFT is brisk. No erythema or proximal streaking. No drainage. Skin temperature gradient warm to warm from proximal ankle to distal digits left lower extremity. Neurological: Light touch is intact. Patient does prolonged painful stimuli. Dermatological: Incision to the lateral aspect of left foot is well coapted with suture. Graft is intact. Musculoskeletal: Mild palpatory tenderness appreciated to the incision of the lateral left foot. No pain with calf compression. Const oriented x3 and no apparent distress Assessment & Plan Assessment/Plan (1) Strain of muscle(s) and tendon(s) of peroneal muscle group at lower leg level, left leg, initial encounter: PLAN: Patient was examined and evaluated. All findings were discussed with the patient. All questions were answered to the patient satisfaction. The patient's negative pressure wound VAC to left lower extremity was changed today by podiatry without incident. Posterior splint placed to left lower extremity. Continue to monitor the negative pressure VAC for any incidence of seal disruption. Please reinforce if necessary. Orders given for wound care to change the VAC on Thursday. WBC: 9.1 -> 13.9 -> 10.0 Hb.9 -> 10.2 - >8.1 Sx Cx: - Fifth metatarsal: Mixed gram-positive and gram-negative organisms - 4th metatarsal: Mixed with gram-positive and gram-negative organisms - Cuboid: Gram-negative tom Sx Path: Pending Medicine: On board, medical management Infectious disease: On board, PICC line placed, plan for surgical therapy 6 weeks meropenem Patient is cleared from podiatry perspective to discharge home with home health care for PICC line management and wound VAC changes on Thursday and Thursday, we are just waiting for insurance to approve the wound VAC. Patient will follow-up with Dr. Guaman the wound care center for evaluation and wound VAC change every Thursday. Podiatry to follow from a distance while in house. Thank you for the be involved in the patient care. (2) Other specified peripheral vascular diseases: (3) Non-pressure chronic ulcer of other part of left foot with necrosis of bone: (4) Other acute osteomyelitis, left ankle and foot:
[2023-07-12] MEDS: APIXABAN 5 MG TABLET PO ×2 (08:22→21:32)
[2023-07-12] MEDS: Metoprolol Tartrate 50 MG Tablet PO ×2 (08:22→21:32)
[2023-07-12] MEDS: Gabapentin 100 MG Capsule 200 MG PO ×2 (08:23→16:46)
[2023-07-12] MEDS: Docusate Sodium 100 MG Capsule PO ×2 (08:23→21:32)
[2023-07-12] MEDS: Pantoprazole Sodium 40 MG Tablet PO ×2 (08:23→21:33)
[2023-07-12] MEDS: 0.9% Saline Lock 10 ML Syringe IV (08:24)
[2023-07-12] MEDS: Folic Acid 1 MG Tablet PO (08:24)
[2023-07-12] MEDS: predniSONE 10 MG Tablet PO (08:24)
[2023-07-12] MEDS: Meropenem 1 GM in 0.9% Normal Saline (100mL MB+) 100 ML IV ×2 (08:25→21:32)
[2023-07-12 10:49] LABS: Hemoglobin 9.2 g/dL (13.0-16.5)
--- NOTE | 2023-07-12 12:28 | PCM.PN.HOSP ---
Reason for Visit Reason for Visit: Left lower extremity foot wound/osteomyelitis Subjective Subjective Patient denies any pain. Is complaining that he is constipated however I discussed with the nursing staff and he has not been consistently taking his MiraLAX. We did encourage him to take MiraLAX as this would probably help. He is also on scheduled Colace which he has been taking. Objective Data Objective Data Vital Signs: Vital Signs Temp Pulse Resp BP Pulse Ox O2 Del Method O2 Flow Rate 97.4 F L 85 18 115/70 100 Nasal Cannula 3 07/12/23 08:00 07/12/23 11:07 07/12/23 11:07 07/12/23 08:00 07/12/23 08:00 07/12/23 08:00 07/12/23 08:00 Oxygen Flow Rate (L/min) 3 Oxygen Delivery Method Nasal Cannula Weight: 67.8 kg Body Mass Index (BMI) 22.1 Intake & Output: Intake and Output for Last 24 Hours 07/10/23 07/11/23 07/12/23 23:59 23:59 23:59 Intake Total 744.5 / 744.5 240 / 240 120 / 120 Output Total 1650 / 1650 750 / 1100 1075 / 1075 Balance -905.5 / -905.5 -510 / -860 -955 / -955 Medical Nutrition Assessment Dietitian: Malnutrition Criteria Met Start: 07/06/23 15:50 Freq: Status: Active Protocol: Document 07/06/23 15:50 SLA (Rec: 07/06/23 15:50 SLA ) Nutrition Malnutrition Evidence of Malnutrition Exists Yes Malnutrition (severe): Acute Illness/Injury Evidenced By Suboptimal Energy Intake ( Severe),Weight Loss (Severe), Physical Changes (Mild) Intake Problem Increased Nutrient Needs (specify) Etiology protein related to skin status Signs/Symptoms as evidenced by L foot osteomyelitis/wound Status Active Problem Clinical Problem Acute Disease or Injury Related Malnutrition Etiology related to inadequate oral energy intake Signs/Symptoms as evidenced by 8.2% unintentional wt loss, po intake < 50% of est nutritional needs and mild fat /muscle loss in face/arms Status Active Problem Recommendation Dietitian Recommendations/Changes Will liberalize diet to Regular d/t signs/symptoms of malnutrition Will add vanilla/peanut butter ensure plus high protein with lunch Will order Bora bid w/ medpass for increased nutrition if consumed. Lab / Micro Data 07/12/23 10:35 07/12/23 05:18 Labs: Laboratory Results - last 24 hr 07/12/23 05:18: WBC 10.0, RBC 2.78 L, Hgb 8.1 L, Hct 26.6 L, MCV 95.7 H, MCH 29.1, MCHC 30.5 L, RDW Std Deviation 54.0 H, RDW Coeff of Meek 15.4 H, Plt Count 310, MPV 10.3, Sodium 136, Potassium 4.6, Chloride 104, Carbon Dioxide 26.0, Anion Gap 6, BUN 35 H, Creatinine 2.06 H, Estim Creat Clear Calc 31.54, Est GFR (MDRD) Af Amer 41 L, Est GFR (MDRD) Non-Af 34 L, BUN/Creatinine Ratio 17.0, Glucose 105, Calcium 8.4 L 07/12/23 10:35: Hgb 9.2 L Micro: Microbiology 07/10/23 12:38 Bone - 4th Metatarsal Bone Gram Stain - Final 07/10/23 12:38 Bone - 4th Metatarsal Bone Wound Culture - Preliminary Staphylococcus aureus Gram negative tom 07/10/23 12:38 Bone - 4th Metatarsal Bone Anaerobic Culture - Preliminary Checking for anaerobes, further studies to follow. 07/10/23 12:38 Bone - Left Foot Gram Stain - Final 07/10/23 12:38 Bone - Left Foot Wound Culture - Preliminary Gram negative tom 07/10/23 12:38 Bone - Left Foot Anaerobic Culture - Preliminary No growth in 48 hours. 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 07/06/23 14:55 Wound - Left Foot Gram Stain - Final 07/06/23 14:55 Wound - Left Foot Wound Culture - Final Staphylococcus aureus Rhythm Strip Rhythm Strip: Sinus Rhythm Rate: 82 Ectopy: None Physical Exam Const alert, oriented x3, no apparent distress and average body habitus; Negative for healthy appearing or well nourished Constitutional Narrative: Pleasant, older, white male, lying in bed sleeping but awakens easily at the time my arrival, appears comfortable, nontoxic, extremely pleasant General Appearance: cooperative HEENT normocephalic, head/scalp atraumatic and moist oral mucous membranes HEENT Narrative: Dentures in place, Mallampati 2, no thrush Resp normal respiratory effort, no retractions, no use of accessory muscles and clear to auscultation bilaterally Resp Narrative: Markedly diminished diffusely but no adventitious sounds noted Auscultation: Negative for rales, rhonchi or wheezes Cardio regular rate, regular rhythm, S1 normal heart sound, S2 normal heart sound, no murmurs, no rub, no gallops and no clicks GI normal to inspection, nondistended, normoactive bowel sounds, soft to palpation and non-tender Extremity no clubbing, cyanosis or edema Extremity Narrative: VAC in place and postoperative dressing in place with good cap refill, right lower extremity unremarkable Neuro oriented x3, moves all extremities and no focal motor deficits Speech: speech normal Psych affect normal Psych Narrative: Pleasant Assessment & Plan Assessment/Plan (1) Wound of left foot: (2) Acute osteomyelitis of left foot: (3) Acute on chronic anemia: (4) Chronic anticoagulation: (5) CKD stage 3b, GFR 30-44 ml/min: PLAN: Plan Left foot wound with acute osteomyelitis secondary to MSSA/Enterococcus -PICC placed -Plan is for 6 weeks of IV antibiotics (meropenem) with a stop date of 08/21/2023 -Postop day 1 incision of bone cortex/debridement with tendon repair and transfer/bone biopsies/surgical graft site/application of antibiotic beads and VAC placement -Awaiting VAC authorization or discontinuation -Scheduled Tylenol 1 g every 8 -As needed oxycodone -As needed Dilaudid -Continue nonweightbearing to left lower extremity -PT/OT are following -Continue home Eliquis Acute on chronic anemia secondary to esophageal ulcers -EGD performed on 07/07/2023 and he was found to have oozing esophageal ulcers that were treated with coagulation for hemostasis with heater probe and biopsies were taken, stomach was normal and there was erythematous duodenopathy -Biopsies showed no acute pathology in the duodenum and distal esophagus showed mild chronic inflammation but no evidence of goblet cell metaplasia -Hemoglobin did drop today and we will cycle every 6 hours to ensure stability with initiation of Eliquis yesterday -Baseline appears to be between 11 and 12 -Continue Protonix 40 mg twice daily but transition to oral -Continue home Carafate -Will hold aspirin for a total of 7 days--> start date will be 07/15/2023 -GI is considering colonoscopy as he does have history of ulcerations in his cecum and terminal ileum but will watch hemoglobin for now--> will plan for outpatient colonoscopy as long as hemoglobin remained stable -Appreciate GI input Right-sided neck and shoulder pain -Musculoskeletal in nature and suspect cervical radiculopathy -Patient has as needed pain medication as above -Continue start low-dose gabapentin -K-pad as needed CKD stage IIIb -Baseline serum creatinine in the last several months has been between 2.3 and 2.6 -Currently 2.06 and 2.33 on admission -Remained stable -Discontinue lisinopril at discharge -Discontinue naproxen/Aleve at discharge -Refer to nephrology after discharge -Will have patient call to set up an appointment Restless leg syndrome -Patient states that this has been an ongoing long-term problem for him -Iron deficiency related to GI bleed may contribute as well with a lower ferritin -Continue Mirapex 0.5 mg nightly Constipation -Continue Colace and MiraLAX -Patient has been refusing his MiraLAX we found out so strongly encouraged that he utilizes this to assist with bowel movements -Will likely need to back off once he starts bowel movements to avoid diarrhea History of VTE -Continue apixaban Chronic hypoxic respiratory failure secondary to COPD -Patient is still smoking about a half a pack of cigarettes a day however he had been smoking up to 4 packs of cigarettes a day previously -Educated on importance of cessation with regards to overall health and wound healing -Continue home inhalers -As needed albuterol -Incentive spirometry -On 3 L at baseline and stable on this at this time -Continue chronic prednisone -Ongoing outpatient pulmonary medicine follow-up after discharge as previously recommended Hypertension -Continue home metoprolol -Will discontinue lisinopril altogether at discharge as blood pressures were not elevated -As needed hydralazine for systolic pressure greater than 160 History of gastric ulcers -Continue Carafate -Continue Protonix 40 mg p.o. twice daily Hyperlipidemia -Continue home pravastatin Tobacco abuse -Patient still smoking -nicotine patch available -Recommend cessation DVT prophylaxis -Discontinue heparin -Start apixaban CODE STATUS -Full code is verified with the patient prior to admission Charges/Coding Visit Charges Inpatient E&M: 22347 Subs Hosp L2
[2023-07-12] MEDS: 0.9% Normal Saline (250mL Bag) 250 ML 15 ML IV (14:35)
[2023-07-12] MEDS: Polyethylene Glycol 3350 17 GM PACKET PO ×2 (14:36→21:32)
[2023-07-12 17:29] LABS: Hemoglobin 9.1 g/dL (13.0-16.5)
[2023-07-12] MEDS: Pravastatin 20 MG Tablet 10 MG PO (21:32)
[2023-07-12] MEDS: Pramipexole Di-HCl 0.5 MG Tablet PO (21:32)
[2023-07-12 23:20] LABS: Hemoglobin 8.7 g/dL (13.0-16.5)
[2023-07-13] VITALS (15 sets, daily range): BP systolic 114–136; BP diastolic 71–92; PULSE 68–91; RESP 16–18; TEMP 36.4–37; O2SAT 93–99; BMI 22.1
[2023-07-13] MEDS: Ipratropium/Albuterol Sulfate 3 ML AMPUL.NEB INHALATION ×6 (02:05→22:45)
[2023-07-13] MEDS: busPIRone 15 MG TABLET PO ×3 (05:59→23:29)
[2023-07-13] MEDS: Sucralfate 1 GM Tablet PO ×3 (05:59→16:40)
[2023-07-13] MEDS: Acetaminophen 500 MG Tablet 1000 MG PO ×3 (05:59→23:31)
[2023-07-13] MEDS: Polyethylene Glycol 3350 17 GM PACKET PO ×2 (08:39→23:28)
[2023-07-13] MEDS: Metoprolol Tartrate 50 MG Tablet PO ×2 (08:39→23:29)
[2023-07-13] MEDS: Docusate Sodium 100 MG Capsule PO ×2 (08:39→23:29)
[2023-07-13] MEDS: predniSONE 10 MG Tablet PO (08:39)
[2023-07-13] MEDS: APIXABAN 5 MG TABLET PO ×2 (08:39→23:29)
[2023-07-13] MEDS: Folic Acid 1 MG Tablet PO (08:39)
[2023-07-13] MEDS: DAKIN'S SOL HALF STRENGTH (=0.25%) 1 APPLIC TOPICAL (08:40)
[2023-07-13] MEDS: Gabapentin 100 MG Capsule 200 MG PO ×2 (08:47→16:40)
[2023-07-13] MEDS: Meropenem 1 GM in 0.9% Normal Saline (100mL MB+) 100 ML IV ×2 (08:47→23:30)
[2023-07-13] MEDS: Pantoprazole Sodium 40 MG Tablet PO ×2 (08:49→23:31)
[2023-07-13 10:15] LABS: Hemoglobin 9.5 g/dL (13.0-16.5); Mean Corp Hgb Conc 30.6 g/dL (32-36); Mean Corpuscular Hgb 29.6 pg (27.0-32.0); Mean Corpuscular Volume 96.6 fL (80-94); Mean Platelet Vol. 9.5 fl (6.2-12.0); Platelet Count 366 K/mm3 (150-450); RBC Distribution Width CV 15.5 % (11.6-14.6); RBC Distribution Width SD 54.6 fl (35.1-43.9); Red Blood Count 3.21 M/mm3 (4.6-6.2); White Blood Count 10.1 K/mm3 (4.4-11.0)
[2023-07-13 10:32] LABS: Anion Gap 5 (5-15); BUN 37 mg/dL (7-18); BUN/Creat Ratio 24.8 RATIO (10-20); Calcium,Total 8.7 mg/dL (8.5-10.1); Chloride 105 mmol/L (98-107); Creatinine, Serum 1.49 mg/dL (0.70-1.30); EST Glomerular Filtration Rate 49 mL/min (>60); Est Glom Filt Rate - Afr Amer 60 mL/min (>60); Estimated Creatinine Clearance 43.74 ml/min; Glucose 100 mg/dL (74-106); Potassium 4.1 mmol/L (3.5-5.1); Sodium Level 138 mmol/L (136-145)
--- NOTE | 2023-07-13 11:12 | PCM.PN.HOSP ---
Reason for Visit Reason for Visit: Left foot wound Subjective Subjective No issues overnight. We did discuss that we should get approval for his VAC tomorrow and should be able to discharge at that time. Objective Data Objective Data Vital Signs: Vital Signs Temp Pulse Resp BP Pulse Ox O2 Del Method O2 Flow Rate 97.5 F L 71 18 133/88 H 94 Nasal Cannula 3 07/13/23 08:33 07/13/23 11:06 07/13/23 11:06 07/13/23 08:39 07/13/23 08:33 07/13/23 08:33 07/13/23 08:33 Oxygen Flow Rate (L/min) 3 Oxygen Delivery Method Nasal Cannula Weight: 68 kg Body Mass Index (BMI) 22.1 Intake & Output: Intake and Output for Last 24 Hours 07/11/23 07/12/23 07/13/23 23:59 23:59 23:59 Intake Total 240 / 240 240 / 240 120 / 120 Output Total 750 / 1100 1725 / 1725 500 / 500 Balance -510 / -860 -1485 / -1485 -380 / -380 Medical Nutrition Assessment Dietitian: Malnutrition Criteria Met Start: 07/06/23 15:50 Freq: Status: Active Protocol: Document 07/06/23 15:50 SLA (Rec: 07/06/23 15:50 SLA ) Nutrition Malnutrition Evidence of Malnutrition Exists Yes Malnutrition (severe): Acute Illness/Injury Evidenced By Suboptimal Energy Intake ( Severe),Weight Loss (Severe), Physical Changes (Mild) Intake Problem Increased Nutrient Needs (specify) Etiology protein related to skin status Signs/Symptoms as evidenced by L foot osteomyelitis/wound Status Active Problem Clinical Problem Acute Disease or Injury Related Malnutrition Etiology related to inadequate oral energy intake Signs/Symptoms as evidenced by 8.2% unintentional wt loss, po intake < 50% of est nutritional needs and mild fat /muscle loss in face/arms Status Active Problem Recommendation Dietitian Recommendations/Changes Will liberalize diet to Regular d/t signs/symptoms of malnutrition Will add vanilla/peanut butter ensure plus high protein with lunch Will order Bora bid w/ medpass for increased nutrition if consumed. Lab / Micro Data 07/13/23 10:05 07/13/23 10:05 Labs: Laboratory Results - last 24 hr 07/12/23 17:15: Hgb 9.1 L 07/12/23 22:59: Hgb 8.7 L 07/13/23 10:05: WBC 10.1, RBC 3.21 L, Hgb 9.5 L, Hct 31.0 L, MCV 96.6 H, MCH 29.6, MCHC 30.6 L, RDW Std Deviation 54.6 H, RDW Coeff of Meek 15.5 H, Plt Count 366, MPV 9.5, Sodium 138, Potassium 4.1, Chloride 105, Carbon Dioxide 28.0, Anion Gap 5, BUN 37 H, Creatinine 1.49 H, Estim Creat Clear Calc 43.74, Est GFR (MDRD) Af Amer 60, Est GFR (MDRD) Non-Af 49 L, BUN/Creatinine Ratio 24.8 H, Glucose 100, Calcium 8.7 Micro: Microbiology 07/10/23 12:38 Bone - 4th Metatarsal Bone Gram Stain - Final 07/10/23 12:38 Bone - 4th Metatarsal Bone Wound Culture - Preliminary Staphylococcus aureus Pseudomonas aeruginosa 07/10/23 12:38 Bone - 4th Metatarsal Bone Anaerobic Culture - Preliminary Checking for anaerobes, further studies to follow. 07/10/23 12:38 Bone - Left Foot Gram Stain - Final 07/10/23 12:38 Bone - Left Foot Wound Culture - Preliminary Pseudomonas aeruginosa 07/10/23 12:38 Bone - Left Foot Anaerobic Culture - Preliminary No growth in 48 hours. 07/10/23 12:38 Bone - 5th Toe Gram Stain - Final 07/10/23 12:38 Bone - 5th Toe Wound Culture - Preliminary Staphylococcus aureus Klebsiella pneumoniae sp pneum Enterobacter cloacae complex 07/10/23 12:38 Bone - 5th Toe Anaerobic Culture - Preliminary Checking for anaerobes, further studies to follow. 07/06/23 14:55 Wound - Left Foot Gram Stain - Final 07/06/23 14:55 Wound - Left Foot Wound Culture - Final Staphylococcus aureus Rhythm Strip Rhythm Strip: Sinus Rhythm Rate: 82 Ectopy: None Physical Exam Const alert, oriented x3, no apparent distress and average body habitus; Negative for healthy appearing or well nourished Constitutional Narrative: Pleasant, older, white male, sitting up in bed eating breakfast, appears comfortable, nontoxic General Appearance: cooperative HEENT normocephalic, head/scalp atraumatic and moist oral mucous membranes HEENT Narrative: Dentition is poor, Mallampati is 2, no thrush Resp normal respiratory effort, no retractions, no use of accessory muscles and clear to auscultation bilaterally Resp Narrative: Markedly diminished diffusely but no adventitious sounds noted Auscultation: Negative for rales, rhonchi or wheezes Cardio regular rate, regular rhythm, S1 normal heart sound, S2 normal heart sound, no murmurs, no rub, no gallops and no clicks GI normal to inspection, nondistended, normoactive bowel sounds, soft to palpation and non-tender Extremity no clubbing, cyanosis or edema Extremity Narrative: VAC in place and postoperative dressing in place with good cap refill, right lower extremity unremarkable Skin No no wounds Neuro oriented x3, moves all extremities and no focal motor deficits Speech: speech normal Psych affect normal Psych Narrative: Pleasant Assessment & Plan Assessment/Plan (1) Wound of left foot: (2) Acute osteomyelitis of left foot: (3) Acute on chronic anemia: (4) Chronic anticoagulation: (5) CKD stage 3b, GFR 30-44 ml/min: PLAN: Plan Left foot wound with acute osteomyelitis secondary to MSSA/Enterococcus -PICC placed -Plan is for 6 weeks of IV antibiotics (meropenem) with a stop date of 08/21/2023 -Postop day 5--> incision of bone cortex/debridement with tendon repair and transfer/bone biopsies/surgical graft site/application of antibiotic beads and VAC placement -Awaiting VAC authorization or discontinuation -Scheduled Tylenol 1 g every 8 -As needed oxycodone -As needed Dilaudid -Continue nonweightbearing to left lower extremity -PT/OT are following -Continue home Eliquis Acute on chronic anemia secondary to esophageal ulcers -EGD performed on 07/07/2023 and he was found to have oozing esophageal ulcers that were treated with coagulation for hemostasis with heater probe and biopsies were taken, stomach was normal and there was erythematous duodenopathy -Biopsies showed no acute pathology in the duodenum and distal esophagus showed mild chronic inflammation but no evidence of goblet cell metaplasia -Hemoglobin has been stable with slight postoperative drop however appears to be stable between 8.5 and 10 -Baseline appears to be between 11 and 12 -Continue Protonix 40 mg twice daily but transition to oral -Continue home Carafate -Will hold aspirin for a total of 7 days--> start date will be 07/15/2023 -GI is considering colonoscopy as he does have history of ulcerations in his cecum and terminal ileum but will watch hemoglobin for now--> will plan for outpatient colonoscopy as long as hemoglobin remained stable -Appreciate GI input Right-sided neck and shoulder pain -Musculoskeletal in nature and suspect cervical radiculopathy -A bit better today with the below interventions -Patient has as needed pain medication as above -Continue start low-dose gabapentin -K-pad as needed CKD stage IIIb -Baseline serum creatinine in the last several months has been between 2.3 and 2.6 -Currently 1.49 and 2.33 on admission -Remained stable -Discontinue lisinopril at discharge -Discontinue naproxen/Aleve at discharge -Refer to nephrology after discharge -Will have patient call to set up an appointment Restless leg syndrome -Continue Mirapex 0.5 mg nightly--> seems to be helping and will discharge on low-dose Constipation -Continue Colace and MiraLAX -Still no bowel movement but patient was refusing his MiraLAX so hopefully once he is taking his MiraLAX consistently he will start to have bowel movements History of VTE -Continue apixaban Chronic hypoxic respiratory failure secondary to COPD -Patient is still smoking about a half a pack of cigarettes a day however he had been smoking up to 4 packs of cigarettes a day previously -Educated on importance of cessation with regards to overall health and wound healing -Continue home inhalers -As needed albuterol -Incentive spirometry -On 3 L at baseline and stable on this at this time -Continue chronic prednisone -Ongoing outpatient pulmonary medicine follow-up after discharge as previously recommended Hypertension -Continue home metoprolol -Will discontinue lisinopril altogether at discharge as blood pressures were not elevated -As needed hydralazine for systolic pressure greater than 160 History of gastric ulcers -Continue Carafate -Continue Protonix 40 mg p.o. twice daily Hyperlipidemia -Continue home pravastatin Tobacco abuse -Patient still smoking -nicotine patch available -Recommend cessation DVT prophylaxis -Continue apixaban CODE STATUS -Full code is verified with the patient prior to admission Charges/Coding Visit Charges Inpatient E&M: 03928 Subs Hosp L2
[2023-07-13] MEDS: 0.9% Normal Saline (250mL Bag) 250 ML 15 ML IV (13:57)
[2023-07-13] MEDS: oxyCODONE 5 MG Tablet PO (23:28)
[2023-07-13] MEDS: MELATONIN 3 MG TABLET PO (23:28)
[2023-07-13] MEDS: Pravastatin 20 MG Tablet 10 MG PO (23:29)
[2023-07-13] MEDS: Pramipexole Di-HCl 0.5 MG Tablet PO (23:30)
[2023-07-14] VITALS (13 sets, daily range): BP systolic 104–142; BP diastolic 60–86; PULSE 73–94; RESP 16–20; TEMP 36.4–36.8; O2SAT 94–100; BMI 23.2
[2023-07-14] MEDS: Ipratropium/Albuterol Sulfate 3 ML AMPUL.NEB INHALATION ×6 (03:50→23:25)
[2023-07-14] MEDS: busPIRone 15 MG TABLET PO ×3 (06:52→20:55)
[2023-07-14] MEDS: Sucralfate 1 GM Tablet PO ×3 (06:52→16:11)
[2023-07-14] MEDS: Acetaminophen 500 MG Tablet 1000 MG PO ×3 (06:52→20:56)
[2023-07-14 07:02] LABS: Hematocrit 26.1 % (40-54); Hemoglobin 7.9 g/dL (13.0-16.5); Mean Corp Hgb Conc 30.3 g/dL (32-36); Mean Corpuscular Hgb 29.4 pg (27.0-32.0); Platelet Count 324 K/mm3 (150-450); RBC Distribution Width CV 15.6 % (11.6-14.6); Red Blood Count 2.69 M/mm3 (4.6-6.2); White Blood Count 9.4 K/mm3 (4.4-11.0)
[2023-07-14 07:38] LABS: Anion Gap 4 (5-15); BUN 43 mg/dL (7-18); BUN/Creat Ratio 30.1 RATIO (10-20); Calcium,Total 8.1 mg/dL (8.5-10.1); Chloride 106 mmol/L (98-107); Creatinine, Serum 1.43 mg/dL (0.70-1.30); EST Glomerular Filtration Rate 52 mL/min (>60); Est Glom Filt Rate - Afr Amer 63 mL/min (>60); Estimated Creatinine Clearance 45.84 ml/min; Glucose 120 mg/dL (74-106); Potassium 4.7 mmol/L (3.5-5.1); Sodium Level 136 mmol/L (136-145)
[2023-07-14] MEDS: APIXABAN 5 MG TABLET PO ×2 (09:10→20:56)
[2023-07-14] MEDS: Docusate Sodium 100 MG Capsule PO (09:10)
[2023-07-14] MEDS: Metoprolol Tartrate 50 MG Tablet PO ×2 (09:10→20:59)
[2023-07-14] MEDS: predniSONE 10 MG Tablet PO (09:10)
[2023-07-14] MEDS: Pantoprazole Sodium 40 MG Tablet PO ×3 (09:11→20:57)
[2023-07-14] MEDS: Polyethylene Glycol 3350 17 GM PACKET PO (09:11)
[2023-07-14] MEDS: Folic Acid 1 MG Tablet PO (09:22)
[2023-07-14] MEDS: Gabapentin 100 MG Capsule 200 MG PO ×2 (09:22→16:11)
[2023-07-14] MEDS: Meropenem 1 GM in 0.9% Normal Saline (100mL MB+) 100 ML IV ×2 (09:31→21:02)
[2023-07-14] MEDS: 0.9% Normal Saline (250mL Bag) 250 ML 15 ML IV (09:31)
[2023-07-14 09:43] LABS: Hemoglobin 8.5 g/dL (13.0-16.5)
--- NOTE | 2023-07-14 09:45 | CASEMGMT ---
TIFFANY CM into pt room to discuss DC plan, pt stated is only available 2 days this week and 3 days next week to assist him. Pt states he does not feel he is able to ambulate by himself and maintain non weight bearing status. Pt would like a list of SNF, informed pt will let SW know to provide list of SNF that insurance will accept and discuss options with him.
--- NOTE | 2023-07-14 09:55 | PCM.PN.ID ---
ID ID: Route of nutrition/ use of supplements: [] Nutritional Intake: [] IV Site: [] Braun Catheter: [] Assessment & Plan Assessment/Plan (1) Chronic kidney disease: (2) Acute osteomyelitis of left foot: PLAN: Wound culture with MSSA. Prior wound cx with MSSA and enterococcus. OR 07/10/[address] Guaman. Surg cx with MSSA, enterobacter, PsA, and CRE klebs. On meropenem for single drug therapy, plan on 6 weeks iv abx at discharge with stop date 08/21/23 and weekly labs, ID followup in 2 weeks. Called re: MDR klebs result. Start contact iso. Will add po doxy for klebs coverage. Will follow
[2023-07-14] MEDS: Doxycycline 100 MG CAPSULE PO ×2 (11:01→20:57)
--- NOTE | 2023-07-14 11:26 | CASEMGMT ---
Social Work- SW met with pt to discuss preferences for facilities at d/c. A list of SNF providers including quality and resource use data and consistent with the patient?s preferred geographic region, medical needs, and insurance network were provided from the [facility]. Pt selected [facility] as [facility]. TRAN Wright
--- NOTE | 2023-07-14 11:39 | CASEMGMT ---
Addendum entered by Katie Conn 07/14/23 16:24: [facility] [place] [facility] accepted referral. Updates sent and requested that precert be started. SW updated. Katie Conn DC Planning Asst. Original Note: [facility] LOREN Null Planning Asst.
--- NOTE | 2023-07-14 14:59 | CASEMGMT ---
RN CM called [facility] to cancel referral made, Pt going to SNF. Updated [facility] via [facility].
--- NOTE | 2023-07-14 15:12 | PN.HOSP_ITS ---
Reason for Visit Reason for Visit: Left foot wound/osteomyelitis Subjective Subjective No complaints. States his right shoulder and neck are better. Doing more poorly with therapy as he has not been doing as much so now will require residential facility placement as his states now she is unable to take him home. Case management is aware and currently working on a remedy the situation. Complains of some upper extremity tremoring of unclear etiology. Restless leg is much better with Mirapex. Objective Data Objective Data Vital Signs: Vital Signs Temp Pulse Resp BP Pulse Ox O2 Del Method O2 Flow Rate 98.3 F 80 16 130/74 H 94 Nasal Cannula 3 07/14/23 14:31 07/14/23 14:31 07/14/23 14:31 07/14/23 14:07/14/23 14:07/14/23 14:07/14/23 14:31 Oxygen Flow Rate (L/min) 3 Oxygen Delivery Method Nasal Cannula Weight: 71.2 kg Body Mass Index (BMI) 23.2 Intake & Output: Intake and Output for Last 24 Hours 07/12/23 07/13/23 07/14/23 23:59 23:59 23:59 Intake Total 240 / 240 1289.5 / 1289.5 335.5 / 335.5 Output Total 1725 / 1725 900 / 1350 750 / 750 Balance -1485 / -1485 389.5 / -60.5 -414.5 / -414.5 Medical Nutrition Assessment Dietitian: Malnutrition Criteria Met Start: 07/06/23 15:50 Freq: Status: Active Protocol: Document 07/06/23 15:50 SLA (Rec: 07/06/23 15:50 SLA ) Nutrition Malnutrition Evidence of Malnutrition Exists Yes Malnutrition (severe): Acute Illness/Injury Evidenced By Suboptimal Energy Intake ( Severe),Weight Loss (Severe), Physical Changes (Mild) Intake Problem Increased Nutrient Needs (specify) Etiology protein related to skin status Signs/Symptoms as evidenced by L foot osteomyelitis/wound Status Active Problem Clinical Problem Acute Disease or Injury Related Malnutrition Etiology related to inadequate oral energy intake Signs/Symptoms as evidenced by 8.2% unintentional wt loss, po intake < 50% of est nutritional needs and mild fat /muscle loss in face/arms Status Active Problem Recommendation Dietitian Recommendations/Changes Will liberalize diet to Regular d/t signs/symptoms of malnutrition Will add vanilla/peanut butter ensure plus high protein with lunch Will order Bora bid w/ medpass for increased nutrition if consumed. Lab / Micro Data 07/14/23 09:25 07/14/23 06:21 Labs: Laboratory Results - last 24 hr 07/14/23 06:21: WBC 9.4, RBC 2.69 L, Hgb 7.9 L, Hct 26.1 L, MCV 97.0 H, MCH 29.4, MCHC 30.3 L, RDW Std Deviation 55.0 H, RDW Coeff of Meek 15.6 H, Plt Count 324, MPV 10.0, Sodium 136, Potassium 4.7, Chloride 106, Carbon Dioxide 26.0, A nion Gap 4 L, BUN 43 H, Creatinine 1.43 H, Estim Creat Clear Calc 45.84, Est GFR (MDRD) Af Amer 63, Est GFR (MDRD) Non-Af 52 L, BUN/Creatinine Ratio 30.1 H, G lucose 120 H, Calcium 8.1 L 07/14/23 09:25: Hgb 8.5 L Micro: Microbiology 07/10/23 12:38 Bone - 5th Toe Gram Stain - Final 07/10/23 12:38 Bone - 5th Toe Wound Culture - Preliminary Staphylococcus aureus Klebsiella pneumoniae Enterobacter cloacae complex 07/10/23 12:38 Bone - 5th Toe Anaerobic Culture - Final No anaerobic bacteria isolated. 07/10/23 12:38 Bone - 4th Metatarsal Bone Gram Stain - Final 07/10/23 12:38 Bone - 4th Metatarsal Bone Wound Culture - Final Staphylococcus aureus Pseudomonas aeruginosa 07/10/23 12:38 Bone - 4th Metatarsal Bone Anaerobic Culture - Final No anaerobic bacteria isolated. 07/10/23 12:38 Bone - Left Foot Gram Stain - Final 07/10/23 12:38 Bone - Left Foot Wound Culture - Final Pseudomonas aeruginosa 07/10/23 12:38 Bone - Left Foot Anaerobic Culture - Preliminary No growth in 48 hours. 07/06/23 14:55 Wound - Left Foot Gram Stain - Final 07/06/23 14:55 Wound - Left Foot Wound Culture - Final Staphylococcus aureus Rhythm Strip Rhythm Strip: Sinus Rhythm Rate: 82 Ectopy: None Physical Exam Const alert, oriented x3, no apparent distress and average body habitus; Negative for healthy appearing or well nourished Constitutional Narrative: Pleasant, older, white male, lying in bed, reclined, watching television, appears comfortable, nontoxic General Appearance: cooperative HEENT normocephalic, head/scalp atraumatic and moist oral mucous membranes HEENT Narrative: Dentition is poor, dentures in place, Mallampati 2-3, no thrush Resp normal respiratory effort, no retractions, no use of accessory muscles and clear to auscultation bilaterally Resp Narrative: Markedly diminished diffusely but no adventitious sounds noted Auscultation: Negative for rales, rhonchi or wheezes Cardio regular rate, regular rhythm, S1 normal heart sound, S2 normal heart sound, no murmurs, no rub, no gallops and no clicks GI normal to inspection, nondistended, normoactive bowel sounds, soft to palpation and non-tender Extremity no clubbing, cyanosis or edema Extremity Narrative: VAC in place and postoperative dressing in place with good cap refill, right lower extremity unremarkable Neuro oriented x3, moves all extremities and no focal motor deficits Speech: speech normal Psych affect normal Psych Narrative: Pleasant Assessment & Plan Assessment/Plan (1) Wound of left foot: (2) Acute osteomyelitis of left foot: (3) Acute on chronic anemia: (4) Chronic anticoagulation: (5) CKD stage 3b, GFR 30-44 ml/min: PLAN: Plan Left foot wound with acute osteomyelitis secondary to MSSA/Enterococcus -PICC placed -Plan is for 6 weeks of IV antibiotics (meropenem) with a stop date of 08/21/2023 -Postop day 6--> incision of bone cortex/debridement with tendon repair and transfer/bone biopsies/surgical graft site/application of antibiotic beads and VAC placement -Patient now will need placement. Searching for facility and then will need pre-CERT -Scheduled Tylenol 1 g every 8 -As needed oxycodone -As needed Dilaudid -Continue nonweightbearing to left lower extremity -PT/OT are following -Continue home Eliquis Acute on chronic anemia secondary to esophageal ulcers -EGD performed on 07/07/2023 and he was found to have oozing esophageal ulcers that were treated with coagulation for hemostasis with heater probe and biopsies were taken, stomach was normal and there was erythematous duodenopathy -Biopsies showed no acute pathology in the duodenum and distal esophagus showed mild chronic inflammation but no evidence of goblet cell metaplasia -Hemoglobin has been stable with slight postoperative drop however appears to be stable between 8.5 and 10--> currently remained stable -Baseline appears to be between 11 and 12 -Continue Protonix 40 mg twice daily but transition to oral -Continue home Carafate -Restart aspirin tomorrow 07/15/2023 -GI is considering colonoscopy as he does have history of ulcerations in his cecum and terminal ileum but will watch hemoglobin for now--> will plan for outpatient colonoscopy as long as hemoglobin remained stable -Appreciate GI input Right-sided neck and shoulder pain -Musculoskeletal in nature and suspect cervical radiculopathy -Resolving -Patient has as needed pain medication as above -Continue start low-dose gabapentin -K-pad as needed CKD stage IIIb -Baseline serum creatinine in the last several months has been between 2.3 and 2.6 -Currently 1.43 and 2.33 on admission -Remained stable -Discontinue lisinopril at discharge -Discontinue naproxen/Aleve at discharge Restless leg syndrome -Continue Mirapex 0.5 mg nightly--> patient states his restless leg is much better Constipation -Continue Colace and MiraLAX -Finally was able to have a bowel movement -Resolving History of VTE -Continue apixaban Chronic hypoxic respiratory failure secondary to COPD -Patient is still smoking about a half a pack of cigarettes a day however he had been smoking up to 4 packs of cigarettes a day previously -Educated on importance of cessation with regards to overall health and wound healing -Continue home inhalers -As needed albuterol -Incentive spirometry -On 3 L at baseline and stable on this at this time -Continue chronic prednisone -Ongoing outpatient pulmonary medicine follow-up after discharge as previously recommended Hypertension -Continue home metoprolol -BPs are a bit above goal and will start amlodipine 2.5 mg daily--> may need to uptitrate -Will discontinue lisinopril as his serum creatinine was much higher while on his lisinopril -As needed hydralazine for systolic pressure greater than 160 History of gastric ulcers -Continue Carafate -Continue Protonix 40 mg p.o. twice daily Hyperlipidemia -Continue home pravastatin Tobacco abuse -Patient still smoking -nicotine patch available -Recommend cessation DVT prophylaxis -Continue apixaban CODE STATUS -Full code is verified with the patient prior to admission Disposition: -Change in plans as patient now needs skilled facility placement per discussion with the today with social work. Currently looking for a place and then will need pre-CERT prior to discharge. Charges/Coding Visit Charges Inpatient E&M: 23217 Subs Hosp L2
[2023-07-14] MEDS: amLODIPine 2.5 MG Tablet PO (16:13)
--- NOTE | 2023-07-14 16:20 | CASEMGMT ---
Social Work message sent to [facility] inquiring of ability to accept. [facility] has not made a determination of acceptance at this time. [facility] will continue to follow for SNF placement. Plan: [facility], pending acceptance TRAN Treviño
[2023-07-14] MEDS: Pravastatin 20 MG Tablet 10 MG PO (20:55)
[2023-07-14] MEDS: oxyCODONE 5 MG Tablet PO (20:56)
[2023-07-14] MEDS: MELATONIN 3 MG TABLET PO (20:56)
[2023-07-14] MEDS: Pramipexole Di-HCl 0.5 MG Tablet PO (21:02)
[2023-07-15] VITALS (11 sets, daily range): BP systolic 119–128; BP diastolic 71–80; PULSE 78–98; RESP 16–18; TEMP 36.5–36.7; O2SAT 95–100; BMI 22.6
[2023-07-15] MEDS: Ipratropium/Albuterol Sulfate 3 ML AMPUL.NEB INHALATION ×4 (03:25→14:56)
[2023-07-15] MEDS: busPIRone 15 MG TABLET PO ×2 (05:46→13:14)
[2023-07-15] MEDS: Sucralfate 1 GM Tablet PO ×3 (05:46→16:19)
[2023-07-15] MEDS: Acetaminophen 500 MG Tablet 1000 MG PO ×2 (05:46→13:14)
[2023-07-15] MEDS: Folic Acid 1 MG Tablet PO (08:46)
[2023-07-15] MEDS: Doxycycline 100 MG CAPSULE PO (08:47)
[2023-07-15] MEDS: predniSONE 10 MG Tablet PO (08:47)
[2023-07-15] MEDS: APIXABAN 5 MG TABLET PO (08:48)
[2023-07-15] MEDS: amLODIPine 2.5 MG Tablet PO (08:49)
--- NOTE | 2023-07-15 09:17 | WOUNDNOTE ---
wound photo: left foot
[2023-07-15] MEDS: Gabapentin 100 MG Capsule 200 MG PO ×2 (10:04→16:19)
[2023-07-15] MEDS: Metoprolol Tartrate 50 MG Tablet PO (10:05)
[2023-07-15] MEDS: Meropenem 1 GM in 0.9% Normal Saline (100mL MB+) 100 ML IV (10:05)
--- NOTE | 2023-07-15 11:22 | TREXTCAR_ITS ---
Diet Diet Order/Speech Therapy: 07/13/23 09:24 Diet: Regular - General Type of Dietary Supplement:: Bora Is pt able to select menu?: Yes Diet Comments: Regular diet Routine Orders/Code Status Suppository Frequency: Daily PRN O2 Liters per Minute: 3 O2 Frequency: Continuous Keep PO Greater than or Equal to (%): 88 Routine Lab Work: CBC (1 week) and BMP (1 week) Code Status: Full Code Wound(s) LT FOOT: Wound Type: Neuropathic/Diabetic Foot Ulcer Dressing Change: KCI wound VAC L hand: Wound Type: Skin Tear Suggestions for Active Care Change Position every (hours): 2 Therapies Weight Bearing: Toe-touch weight bearing Extremity Affected:: Left Lower Physical Therapy: Eval and Treat Occupational Therapy: Eval and Treat Problem/Diagnosis (1) Wound of left foot: Status: Acute Code(s): S91.302A - Unspecified open wound, left foot, initial encounter (2) Acute osteomyelitis of left foot: Status: Acute Code(s): M86.172 - Other acute osteomyelitis, left ankle and foot (3) Acute on chronic anemia: Status: Chronic Code(s): D64.9 - Anemia, unspecified (4) Chronic anticoagulation: Status: Acute Code(s): Z79.01 - senior living (current) use of anticoagulants (5) CKD stage 3b, GFR 30-44 ml/min: Status: Acute Code(s): N18.32 - Chronic kidney disease, stage 3b Allergies/Procedures Done in Hospital Allergies azithromycin (From Zithromax) Allergy (Verified 07/10/23 08:13) Swelling Penicillins Allergy (Verified 07/10/23 08:13) Hives shellfish derived Allergy (Verified 07/10/23 08:13) Hives venom-honey bee (bee venom (honey bee)) Allergy (Verified 07/10/23 08:13) Hives chocolate flavor Adverse Reaction (Verified 07/10/23 08:13) Diarrhea Procedures: EKG and - (Chest x-ray/foot x-ray x 2) Type of Care/Length of Stay Estimated LOS: Convalescent Care Less Than 30 days Type of Care Needed: Skilled Rehab Potential: Good Prognosis: Good Additional Orders/Day of Discharge Day of Discharge: 07/15/23 Dietary and Speech Recommendations Dietitian Recommendations/Changes: Will adjust diet to Regular- JENNIFER to manage medical conditions. Continue Bora BID w/meals for increased nutrition if consumed. Follow Up Care Please follow up with your Primary Care Physician in: 2 weeks Please Follow Up With: Yoandy Coon MD When: 2 weeks Please Follow Up With: Parveen Guaman DPM When: At wound center every Thursday Discharge Plan Admission Admit Date/Time: 07/06/23 13:11 Attending Provider: Shilpa Nicholson Primary Care Provider: Cherelle Cutler Consulting Providers: Yoandy Coon; Parveen Guaman Discharge Orders/Prescriptions Prescriptions: New meropenem 1 gram recon soln 1 g IV Q12H 42 Days Rx Instructions: stop date 08/21/23. Dx: L foot osteo. Weekly bmp, cbc, LFT, and esr. Fax to [phone]. Routine picc care per protocol. doxycycline monohydrate 100 mg Capsule 100 mg PO BID 42 Days Qty: 84 0RF No Action prednisone 10 mg tablet 10 mg PO DAILY 90 Days Qty: 90 3RF folic acid 400 mcg tablet 0.4 mg PO DAILY (DME) PEP device See Rx Instructions .ROUTE .MEDSUPPLY Qty: 1 0RF Rx Instructions: with training cyanocobalamin (vitamin B-12) [Vitamin B-12] 100 mcg tablet 100 mcg PO DAILY Patient Comments: TAKE 1 TABLET BY MOUTH EVERY DAY aspirin 81 MG tablet,chewable 81 mg PO DAILY@0800 Patient Comments: [facility] budesonide-formoterol [Symbicort] 1 INHALER inhaler 2 puff PO BID Patient Comments: COPD metoprolol tartrate 50 MG tablet 50 mg PO BID apixaban 5 MG tablet 5 mg PO BID lisinopril 20 MG tablet 20 mg PO DAILY albuterol sulfate 18 GM HFA aerosol inhaler 2 puff inhalation Q4H PRN PRN (Reason: Sob &/Or Wheezing) pravastatin 10 mg tablet 10 mg PO QHS Patient Comments: TAKE 1 TABLET BY MOUTH EVERY DAY buspirone 10 mg tablet 15 mg PO TID Patient Comments: TAKE ONE TABLET BY MOUTH TWICE A DAY cholecalciferol (vitamin D3) [Vitamin D3] 25 mcg (1,000 unit) capsule 25 mcg PO DAILY naproxen sodium [Aleve] 220 mg capsule 880 mg PO BID PRN (Reason: PAIN ) oxycodone-acetaminophen [Percocet] 5-325 mg tablet 1 tab PO Q6H PRN (Reason: pain) 7 Days Qty: 28 0RF sucralfate [Carafate] 1 gram tablet 1 g PO TID 30 Days Qty: 90 2RF ipratropium-albuterol 0.5 mg-3 mg(2.5 mg base)/3 mL solution for nebulization 3 ml inhalation Q4H PRN (Reason: shortness of breath or wheezing) Qty: 540 3RF Referrals / Follow Up: Parveen Guaman DPM [Med Staff - Active Staff] - (Patient to follow-up with Dr. Guaman 1 week post discharge on Wednesdays at the wound care center. Please call for appointment and time.) Cherelle Cutler DO [Primary Care Provider] - Ramesh Conrad DO [Med Staff - Active Staff] - 09/21/23 11:00 am
--- NOTE | 2023-07-15 11:25 | PCM.DC.SUM ---
Providers Date of Admission: 07/06/23 Date of Discharge: 07/15/23 Primary Care Physician: Dr. Cherelle Cutler, Consultations 07/06/23 13:31 Consult: Willow Machine Operator / Pulmonary Medicine Routine Consulting Provider: Chan Giles Reason for Consult: preop optimzation EMERGENT Consult: No MD Notified: Yes Date Notified: 07/06/23 Time Notified: 15:30 Method of Notification: Text Consult: Podiatry Routine Consulting Provider: Parveen Guaman Reason for Consult: Left foot osteomyelitis EMERGENT Consult: No MD Notified: Yes Date Notified: 07/06/23 Time Notified: 15:06 Method of Notification: Text 07/06/23 15:10 Consult: Onc/Wound/blueprint tracer Routine Comment: Reason for Consult:: left lateral foot 07/06/23 16:48 Consult: Gastroenterology Routine Consulting Provider: [facility] Reason for Consult: anemia with h/o PUD EMERGENT Consult: No MD Notified: Yes Date Notified: 07/06/23 Time Notified: 16:48 Method of Notification: Verbal 07/07/23 11:42 Consult: Infectious Disease Routine Consulting Provider: Yoandy Coon Reason for Consult: OM R LE EMERGENT Consult: No MD Notified: Yes Date Notified: 07/07/23 Time Notified: 11:52 Method of Notification: Text Reason For Visit: LEFT FOOT OSTEOMYELITIS Diagnosis Discharge Diagnosis (1) Wound of left foot: Status: Acute Code(s): S91.302A - Unspecified open wound, left foot, initial encounter (2) Acute osteomyelitis of left foot: Status: Acute Code(s): M86.172 - Other acute osteomyelitis, left ankle and foot (3) Acute on chronic anemia: Status: Chronic Code(s): D64.9 - Anemia, unspecified (4) Chronic anticoagulation: Status: Acute Code(s): Z79.01 - longterm (current) use of anticoagulants (5) CKD stage 3b, GFR 30-44 ml/min: Status: Acute Code(s): N18.32 - Chronic kidney disease, stage 3b Medications at Discharge Home Medications aspirin 81 mg chewable tablet 81 mg PO DAILY@0800 [facility] 02/03/14 budesonide-formoterol HFA 160 mcg-4.5 mcg/actuation aerosol inhaler (Symbicort) 2 puff PO BID COPD 12/19/14 albuterol sulfate 90 mcg/actuation aerosol inhaler 2 puff inhalation Q4H PRN PRN Sob &/Or Wheezing 08/24/18 apixaban 5 mg tablet 5 mg PO BID BLOOD THINNER 08/24/18 lisinopril 20 mg tablet 20 mg PO DAILY bp 08/24/18 metoprolol tartrate 50 mg tablet 50 mg PO BID HTN 08/24/18 pravastatin 10 mg tablet 10 mg PO QHS HIGH CHOLESTEROL 10/04/22 sucralfate 1 gram tablet (Carafate) 1 g PO TID GASTRIC ULCERS 30 days #90 tabs 10/24/22 PEP device #1 ea 11/06/22 folic acid 400 mcg tablet 0.4 mg PO DAILY DIETARY SUPPLEMENT 11/06/22 prednisone 10 mg tablet 10 mg PO DAILY COPD 90 days #90 tabs 01/30/23 ipratropium 0.5 mg-albuterol 3 mg (2.5 mg base)/3 mL nebulization soln 3 ml inhalation Q4H PRN shortness of breath or wheezing #540 mL 03/18/23 buspirone 10 mg tablet 15 mg PO TID DEPRESSION/ANXIETY 04/16/23 cyanocobalamin (vitamin B-12) 100 mcg tablet (Vitamin B-12) 100 mcg PO DAILY VITAMIN SUPPLEMENT 04/16/23 cholecalciferol (vitamin D3) 25 mcg (1,000 unit) capsule (Vitamin D3) 25 mcg PO DAILY DIETARY SUPPLEMENT 05/27/23 oxycodone-acetaminophen 5 mg-325 mg tablet (Percocet) 1 tab PO Q6H PRN pain 7 days #28 tabs 06/20/23 meropenem 1 gram intravenous solution 1 g IV Q12H 42 days 07/09/23 doxycycline monohydrate 100 mg capsule 100 mg PO BID 42 days #84 caps 07/14/23 acetaminophen 500 mg tablet 1,000 mg (2 x 500 mg) PO Q8 #0 tabs 07/15/23 amlodipine 2.5 mg tablet 2.5 mg PO DAILY #0 tabs 07/15/23 docusate sodium 100 mg capsule 100 mg PO BID #0 caps 07/15/23 gabapentin 100 mg capsule 200 mg (2 x 100 mg) PO BIDCM #0 caps 07/15/23 oxycodone 5 mg tablet 5 mg PO Q4H PRN PRN Pain Score 4-10 1 day #6 tabs 07/15/23 pantoprazole 40 mg tablet,delayed release 40 mg PO BID #0 tabs 07/15/23 pramipexole 0.5 mg tablet 1 mg (2 x 0.5 mg) PO QHS #0 tabs 07/15/23 sennosides 8.6 mg-docusate sodium 50 mg tablet (Stool Softener-Stimulant Laxative) 2 tab PO BID PRN PRN Constipation #0 tabs 07/15/23 sodium hypochlorite 0.25 % solution (HySept) 1 applic topical DAILY #0 mL 07/15/23 Hospital Course Operations - (1. Incision of bone cortex, left foot 2. Debridement and repair with tendon transfer, peroneus brevis tendon, left foot 3. Bone biopsies, left foot 4. Surgical skin graft site prep, left foot 5. Application of antibiotic beads, left foot 6. Application of skin graft substitute, left foot ) Procedures EGD, EKG, PICC line placement and - (Chest x-ray/foot x-ray x 2) Summary of Care Provided Minutes Spent on Discharge: 45 Hospital Course: DARRYN ROMAN, is a 73 M who presented to the emergency department at [facility] on 07/06/[address] Guaman from podiatry due to a chronic left foot wound that has now had a positive bone scan for osteomyelitis. He has been seeing podiatry for some time but unfortunately his wound has progressed and there is now evidence of bone infection. He asked that he come the emergency department and be admitted and placed on IV antibiotics with clearance for surgery. The patient is on chronic anticoagulation with Eliquis due to history of DVT. He also is on oxygen at baseline 3 L and currently no signs of exacerbation but does follow with pulmonary medicine as outpatient. He reports that he was told by pulmonary medicine they would not clear him until he has a 6-minute walk test but he states he is unable to do a 6-minute walk test due to the fact that he has inability to do any significant weightbearing on that foot secondary to the infection. He also was seen recently by vascular surgery on 07/01/2023 it was felt that he does not any need any intervention vascularly prior to surgery for his foot wound they will continue to follow as an outpatient and possibly refer for potential consideration of STEVENS flow however that can be pursued at a later date. Patient indicated that he would not have come to the emergency department if not instructed to do so by podiatry. He has been feeling well otherwise. Vital signs at the time of presentation showed a temperature of 97.2, heart rate 85, respiratory was 18, blood pressure was 99/69 with a pulse ox of 100% on 3 L nasal cannula. His CBC shows a chronic anemia that is down slightly from previous at 9.8 but is macrocytic with an MCV of 96.5. Platelet count was normal. His differential is normal. ESR was 26 with a CRP of 68.8. His chemistry panel showed normal electrolytes however he does have an elevated BUN and creatinine at 36 and 2.33 respectively however these appear to be stable and close to his baseline. He does have known CKD stage IIIb. Foot x-ray showed soft tissue swelling along the dorsum of the forefoot but no fracture was noted. Chest x-ray showed no acute cardiopulmonary process however hyperinflation was noted consistent with previous and suggestive of emphysema. Bone scan from 06/18/2023 was reviewed and is consistent with an infectious process involving the base of the fifth metatarsal. His EKG was sinus rhythm with a rate of 82 and no ectopy and no ST-T wave changes concerning for acute ischemia and no change from previous. He was admitted to the medical floor and started on broad-spectrum antibiotics. Consultation to podiatry was made. Once he was cleared medically he was taken to the OR on 07/10/2023 at which time an incision of bone cortex/debridement with tendon repair and transfer/bone biopsies/surgical graft site/application of antibiotic beads and VAC placement was performed. Infectious disease was consulted and plan is for 6 weeks of IV meropenem as well as doxycycline for multidrug-resistant Klebsiella. Final cultures show MSSA, Enterococcus, MDR Klebsiella. He was noted to have a declining hemoglobin during his hospitalization and had a known history of ulceration as well as colonic ulcerations. He was maintained on his home Carafate and IV PPI was started. Gastroenterology was consulted and EGD was performed on 07/07/2023 at which time he was found to have esophageal ulcers that were oozing and were treated with heater probe and biopsied. No gross lesions were noted in the ends stomach but he did have erythematous duodenopathy which was also biopsied. Duodenal biopsies were unremarkable with no pathologic change and distal esophageal biopsies showed GE junction mucosa with mild chronic inflammation and no evidence of goblet cell metaplasia. We were able to restart his Eliquis after surgery and his hemoglobin shows stability prior to discharge. He will need to follow-up in the outpatient office with Dr. Conrad to schedule colonoscopy to reexamine the ulceration his colon is Dr. Conrad is concerned that he may have further underlying pathology but did not pursue it since his hemoglobin was stable while hospitalized. The initial plan was to discharge home, however, his debility and lack o 24-hour supervision at home to assist his care became evident and care home facility was pursued. He was accepted by [facility] and pre-CERT was obtained on 06/25/2023 from the insurance company. He was able to be discharged in stable condition to the [facility] on 06/25/2023. He will need to follow-up with his primary care physician within the next 2 weeks after discharge from SNF, infectious disease in 2 weeks, Dr. Guaman every Thursday at the wound center, and Dr. Conrad at scheduled appointment noted in discharge information. Patient is still smoking and we strongly recommended cessation Discharge diagnoses: Left foot wound infection Acute osteomyelitis of the left foot Acute on chronic anemia Esophageal ulcers History of rectal ulcers Right-sided neck and shoulder pain CKD stage IIIb Restless leg syndrome Constipation History of VTE Chronic hypoxic respiratory failure secondary to COPD Hypertension Gastric ulcers Hyperlipidemia Tobacco abuse Physical Exam Const alert, oriented x3, no apparent distress, average body habitus and no limitations; Negative for healthy appearing or well nourished Constitutional Narrative: Pleasant, older, white male, sitting up in bed watching television, appears comfortable, does not appear toxic, does appear older than stated age General Appearance: cooperative, comfortable, well kempt and well developed Orientation / Consciousness: awake Exam Limitations: no limitations HEENT normocephalic, head/scalp atraumatic and moist oral mucous membranes HEENT Narrative: Mild to moderate hearing loss, dentition is poor, Mallampati is 2, no thrush Eyes PERRL, EOMs intact bilaterally and conjunctivae normal Eyes Narrative: No scleral icterus Neck no lymphadenopathy and supple Neck Narrative: Trachea midline, no thyroid enlargement Resp normal respiratory effort, no retractions, no use of accessory muscles and clear to auscultation bilaterally Resp Narrative: Markedly diminished diffusely but no adventitious sounds noted Auscultation: Negative for rales, rhonchi or wheezes Cardio regular rate, regular rhythm, S1 normal heart sound, S2 normal heart sound, no murmurs, no rub, no gallops and no clicks GI normal to inspection, nondistended, normoactive bowel sounds, soft to palpation and non-tender Extremity no clubbing, cyanosis or edema Extremity Narrative: VAC in place and postoperative dressing in place with good cap refill, right lower extremity unremarkable Skin no rashes or lesions noted, No no wounds, skin turgor normal, no jaundice, no petechiae and no mottling Skin Narrative: Left lower extremity as above Neuro oriented x3, CN's II-XII intact bilaterally, moves all extremities and no focal motor deficits Neuro Narrative: Generalized weakness, proximal greater than distal and upper extremities less affected than lower extremities Speech: speech normal Psych affect normal Psych Narrative: Pleasant Medical Records Data Medical Nutrition Assessment Dietitian: Malnutrition Criteria Met Start: 07/06/23 15:50 Freq: Status: Active Protocol: Document 07/06/23 15:50 SLA (Rec: 07/06/23 15:50 SLA ) Nutrition Malnutrition Evidence of Malnutrition Exists Yes Malnutrition (severe): Acute Illness/Injury Evidenced By Suboptimal Energy Intake ( Severe),Weight Loss (Severe), Physical Changes (Mild) Intake Problem Increased Nutrient Needs (specify) Etiology protein related to skin status Signs/Symptoms as evidenced by L foot osteomyelitis/wound Status Active Problem Clinical Problem Acute Disease or Injury Related Malnutrition Etiology related to inadequate oral energy intake Signs/Symptoms as evidenced by 8.2% unintentional wt loss, po intake < 50% of est nutritional needs and mild fat /muscle loss in face/arms Status Active Problem Recommendation Dietitian Recommendations/Changes Will liberalize diet to Regular d/t signs/symptoms of malnutrition Will add vanilla/peanut butter ensure plus high protein with lunch Will order Bora bid w/ medpass for increased nutrition if consumed. Weight / BMI Weight Weight: 69.2 kg Body Mass Index (BMI) 22.6 ABG / Lab / Microbiology Data 07/14/23 09:25 07/14/23 06:21 Microbiology: Microbiology 07/10/23 12:38 Bone - Left Foot Gram Stain - Final 07/10/23 12:38 Bone - Left Foot Wound Culture - Final Pseudomonas aeruginosa 07/10/23 12:38 Bone - Left Foot Anaerobic Culture - Final No growth in 5 days. 07/14/23 20:30 Stool Stool Occult Blood ([facility]) - Final 07/10/23 12:38 Bone - 5th Toe Gram Stain - Final 07/10/23 12:38 Bone - 5th Toe Wound Culture - Preliminary Staphylococcus aureus Klebsiella pneumoniae Enterobacter cloacae complex 07/10/23 12:38 Bone - 5th Toe Anaerobic Culture - Final No anaerobic bacteria isolated. 07/10/23 12:38 Bone - 4th Metatarsal Bone Gram Stain - Final 07/10/23 12:38 Bone - 4th Metatarsal Bone Wound Culture - Final Staphylococcus aureus Pseudomonas aeruginosa 07/10/23 12:38 Bone - 4th Metatarsal Bone Anaerobic Culture - Final No anaerobic bacteria isolated. 07/06/23 14:55 Wound - Left Foot Gram Stain - Final 07/06/23 14:55 Wound - Left Foot Wound Culture - Final Staphylococcus aureus D/C Instructions Discharge Diet: Low fat / Low cholesterol Please Follow Up With: Yoandy Coon MD Meaningful Use Info Meaningful Use Meaningful Use Diagnoses (Choose all that apply): None applicable Ischemic Stroke Statin Dosing Therapy Reference: STATIN DOSE THERAPY REFERENCE: * Patients > 75 years receive moderate or high dose statin therapy. * Patients 75 years or YOUNGER should receive HIGH intensity statin dose unless contraindicated. You will be required to document reason for non-treatment if statin daily dose does not meet guidelines. HIGH DOSE STATIN THERAPY DAILY Atorvastatin > than or = to 40 mg Rosuvastatin > than or = to 20 mg Amlodipine + Atorvastatin > than or = to 2.5/40 mg Ezetimibe + Simvastatin 10/80 mg Simvastatin 80mg Discharge Plan Admission Admit Date/Time: 07/06/23 13:11 Primary Reason for Your Visit: LLE Foot wound Attending Provider: Shilpa Nicholson Primary Care Provider: Cherelle Cutler Consulting Providers: Yoandy Coon; Parveen Guaman Discharge Orders/Prescriptions Prescriptions: New meropenem 1 gram recon soln 1 g IV Q12H 42 Days Rx Instructions: stop date 08/21/23. Dx: L foot osteo. Weekly bmp, cbc, LFT, and esr. Fax to [phone]. Routine picc care per protocol. doxycycline monohydrate 100 mg Capsule 100 mg PO BID 42 Days Qty: 84 0RF pramipexole 0.5 mg Tablet 1 mg PO QHS Qty: 0 0RF sennosides-docusate sodium [Stool Softener-Stimulant Laxat] 8.6-50 mg Tablet 2 tab PO BID PRN PRN (Reason: Constipation) Qty: 0 0RF pantoprazole 40 mg Tablet,Delayed Release (Dr/Ec) 40 mg PO BID Qty: 0 0RF Rx Instructions: x 8 weeks then daily oxycodone 5 mg Tablet 5 mg PO Q4H PRN PRN (Reason: Pain Score 4-10) 1 Days Qty: 6 0RF HySept 0.25 % Solution 1 applic topical DAILY Qty: 0 0RF Protocol: *Topical Application Instructions APPLICATION INSTRUCTIONS: left foot wound docusate sodium 100 mg Capsule 100 mg PO BID Qty: 0 0RF gabapentin 100 mg Capsule 200 mg PO BIDCM Qty: 0 0RF amlodipine 2.5 mg Tablet 2.5 mg PO DAILY Qty: 0 0RF acetaminophen 500 mg Tablet 1,000 mg PO Q8 Qty: 0 0RF Continued prednisone 10 mg tablet 10 mg PO DAILY 90 Days Qty: 90 3RF folic acid 400 mcg tablet 0.4 mg PO DAILY (DME) PEP device See Rx Instructions .ROUTE .MEDSUPPLY Qty: 1 0RF Rx Instructions: with training cyanocobalamin (vitamin B-12) [Vitamin B-12] 100 mcg tablet 100 mcg PO DAILY Patient Comments: TAKE 1 TABLET BY MOUTH EVERY DAY aspirin 81 MG tablet,chewable 81 mg PO DAILY@0800 Patient Comments: [facility] budesonide-formoterol [Symbicort] 1 INHALER inhaler 2 puff PO BID Patient Comments: COPD metoprolol tartrate 50 MG tablet 50 mg PO BID apixaban 5 MG tablet 5 mg PO BID lisinopril 20 MG tablet 20 mg PO DAILY albuterol sulfate 18 GM HFA aerosol inhaler 2 puff inhalation Q4H PRN PRN (Reason: Sob &/Or Wheezing) pravastatin 10 mg tablet 10 mg PO QHS Patient Comments: TAKE 1 TABLET BY MOUTH EVERY DAY buspirone 10 mg tablet 15 mg PO TID Patient Comments: TAKE ONE TABLET BY MOUTH TWICE A DAY cholecalciferol (vitamin D3) [Vitamin D3] 25 mcg (1,000 unit) capsule 25 mcg PO DAILY oxycodone-acetaminophen [Percocet] 5-325 mg tablet 1 tab PO Q6H PRN (Reason: pain) 7 Days Qty: 28 0RF sucralfate [Carafate] 1 gram tablet 1 g PO TID 30 Days Qty: 90 2RF ipratropium-albuterol 0.5 mg-3 mg(2.5 mg base)/3 mL solution for nebulization 3 ml inhalation Q4H PRN (Reason: shortness of breath or wheezing) Qty: 540 3RF Discontinued naproxen sodium [Aleve] 220 mg capsule 880 mg PO BID PRN (Reason: PAIN ) Referrals / Follow Up: Parveen Guaman DPM [Med Staff - Active Staff] - (Patient to follow-up with Dr. Guaman 1 week post discharge on Wednesdays at the wound care center. Please call for appointment and time.) Cherelle Cutler DO [Primary Care Provider] - Within 1 Month Ramesh Conrad DO [Med Staff - Active Staff] - 09/21/23 11:00 am Yoandy Coon MD [Med Staff - Active Staff] - Within 2 Weeks Disposition Disposition (needs filled in before D/C Order can be placed): Senior Living Facility Charges/Coding Visit Charges Inpatient E&M: 37591 SNF Disch >30 Min
--- NOTE | 2023-07-15 12:03 | CASEMGMT ---
Discharge Planning [facility] has obtained auth. SW updated. Katie Conn DC Planning Asst.
[2023-07-15] MEDS: oxyCODONE 5 MG Tablet PO (13:15)
--- NOTE | 2023-07-15 14:38 | CASEMGMT ---
Social Work- Pt is medically ready for discharge. [facility] and precert has been obtained. SW completed 7000 in HENS. ANDRES advised Discharge Mixing Machine Tender Cork Rod that discharge could be completed. TRAN Wright
--- NOTE | 2023-07-15 14:55 | PHA.DC_ITS ---
Pharmacy [place] Med Reconciliation Pharmacy Service has performed discharge medication reconciliation for this patient. The patient's discharge medication list was reviewed for discrepancies and discrepancies were resolved. Medications at Discharge Home Medications aspirin 81 mg chewable tablet 81 mg PO DAILY@0800 [facility] 02/03/14 budesonide-formoterol HFA 160 mcg-4.5 mcg/actuation aerosol inhaler (Symbicort) 2 puff PO BID COPD 02/03/14 albuterol sulfate 90 mcg/actuation aerosol inhaler 2 puff inhalation Q4H PRN PRN Sob &/Or Wheezing 08/24/18 apixaban 5 mg tablet 5 mg PO BID BLOOD THINNER 08/24/18 lisinopril 20 mg tablet 20 mg PO DAILY bp 08/24/18 metoprolol tartrate 50 mg tablet 50 mg PO BID HTN 08/24/18 pravastatin 10 mg tablet 10 mg PO QHS HIGH CHOLESTEROL 10/04/22 sucralfate 1 gram tablet (Carafate) 1 g PO TID GASTRIC ULCERS 30 days #90 tabs 10/24/22 PEP device #1 ea 11/06/22 folic acid 400 mcg tablet 0.4 mg PO DAILY DIETARY SUPPLEMENT 11/06/22 prednisone 10 mg tablet 10 mg PO DAILY COPD 90 days #90 tabs 01/30/23 ipratropium 0.5 mg-albuterol 3 mg (2.5 mg base)/3 mL nebulization soln 3 ml inhalation Q4H PRN shortness of breath or wheezing #540 mL 03/18/23 buspirone 10 mg tablet 15 mg PO TID DEPRESSION/ANXIETY 04/16/23 cyanocobalamin (vitamin B-12) 100 mcg tablet (Vitamin B-12) 100 mcg PO DAILY VITAMIN SUPPLEMENT 04/16/23 cholecalciferol (vitamin D3) 25 mcg (1,000 unit) capsule (Vitamin D3) 25 mcg PO DAILY DIETARY SUPPLEMENT 05/27/23 oxycodone-acetaminophen 5 mg-325 mg tablet (Percocet) 1 tab PO Q6H PRN pain 7 days #28 tabs 06/20/23 meropenem 1 gram intravenous solution 1 g IV Q12H 42 days 07/09/23 doxycycline monohydrate 100 mg capsule 100 mg PO BID 42 days #84 caps 07/14/23 acetaminophen 500 mg tablet 1,000 mg (2 x 500 mg) PO Q8 #0 tabs 07/15/23 amlodipine 2.5 mg tablet 2.5 mg PO DAILY #0 tabs 07/15/23 docusate sodium 100 mg capsule 100 mg PO BID #0 caps 07/15/23 gabapentin 100 mg capsule 200 mg (2 x 100 mg) PO BIDCM #0 caps 07/15/23 oxycodone 5 mg tablet 5 mg PO Q4H PRN PRN Pain Score 4-10 1 day #6 tabs 07/15/23 pantoprazole 40 mg tablet,delayed release 40 mg PO BID #0 tabs 07/15/23 pramipexole 0.5 mg tablet 1 mg (2 x 0.5 mg) PO QHS #0 tabs 07/15/23 sennosides 8.6 mg-docusate sodium 50 mg tablet (Stool Softener-Stimulant La xative) 2 tab PO BID PRN PRN Constipation #0 tabs 07/15/23 sodium hypochlorite 0.25 % solution (HySept) 1 applic topical DAILY #0 mL 07/15/23
--- NOTE | 2023-07-15 15:14 | CASEMGMT ---
Discharge Planning Discharge orders, signed med list, and transport time sent to [facility] via [facility]. Physicians will transport patient by cot at 3:30p. Nursing, SW, patient, and his updated. Katie Conn DC Planning Asst.
--- NOTE | 2023-07-15 16:17 | CASEMGMT ---
Social Work ANDRES spoke with WANDA at [facility] who states the wound vac will not be available until tomorrow. ANDRES updated physician. Charge nurse spoke with Dr. Guaman who confirms pt can go to facility without wound vac on this date and it can be applied tomorrow. ANDRES attempted to call DON multiple times with no answer. ANDRES messaged admissions at [facility] who states pt can be admitted today. ANDRES met with pt and RN who was in the pt's room and updated that physician feels pt can discharge today without the vac and transporation will sweet pickled fruit maker at 5pm. Pt is agreeable. Pt states he spoke with pt who is also aware and agreeable. Disposition: [facility], skilled level of care under convalescent stay TRAN [place]
[2023-07-15] MEDS: Neomycin/Bacitracin/Polymyxin Ointment 1 APPLIC TOPICAL (16:20)
--- NOTE | 2023-07-15 17:11 | NURSING ---
report called to wing [facility]
== END 2023-07-15 17:05 | DRG 463 ==
LOC: ED 12:07 → MS3 13:37
PROVIDERS: Anesthesiology; Internal Medicine Gastroenterology; Podiatrist Foot & Ankle Surgery; Admitting Provider Internal Medicine; Emergency Provider Emergency Medicine; PCP Family Medicine; Visit Provider Internal Medicine
PROC: 0DJ08ZZ Inspection of Upper Intestinal Tract, Via Natural or Artificial Opening Endoscopic (ICD-10-PCS; CPT 43235; principal; 2023-07-07 14:55)
PROC: 0HRNXK3 Replacement of Left Foot Skin with Nonautologous Tissue Substitute, Full Thickness, External Approach (ICD-10-PCS; principal; 2023-07-10 08:45)
DX: M86.172 Other acute osteomyelitis, left ankle and foot (principal); E43 Unspecified severe protein-calorie malnutrition; K22.11 Ulcer of esophagus with bleeding; J96.11 Chronic respiratory failure with hypoxia; D62 Acute posthemorrhagic anemia; Z99.81 Dependence on supplemental oxygen; J44.9 Chronic obstructive pulmonary disease, unspecified; N18.32 Chronic kidney disease, stage 3b; L97.524 Non-pressure chronic ulcer of other part of left foot with necrosis of bone; M86.672 Other chronic osteomyelitis, left ankle and foot; I12.9 Hypertensive chronic kidney disease with stage 1 through stage 4 chronic kidney disease, or unspecified chronic kidney disease; G25.81 Restless legs syndrome; I73.9 Peripheral vascular disease, unspecified; F17.210 Nicotine dependence, cigarettes, uncomplicated; E78.5 Hyperlipidemia, unspecified; E87.5 Hyperkalemia; M54.12 Radiculopathy, cervical region; K59.00 Constipation, unspecified; S86.312A Strain of muscle(s) and tendon(s) of peroneal muscle group at lower leg level, left leg, initial encounter; B95.2 Enterococcus as the cause of diseases classified elsewhere; B96.1 Klebsiella pneumoniae [K. pneumoniae] as the cause of diseases classified elsewhere; R53.81 Other malaise; B95.61 Methicillin susceptible Staphylococcus aureus infection as the cause of diseases classified elsewhere; Z79.51 Long term (current) use of inhaled steroids; Z79.01 Long term (current) use of anticoagulants; Z79.82 Long term (current) use of aspirin; Z79.52 Long term (current) use of systemic steroids; Z79.899 Other long term (current) drug therapy; Z86.718 Personal history of other venous thrombosis and embolism; Z68.21 Body mass index [BMI] 21.0-21.9, adult
CPT/HCPCS: 36415; 36569; 71045; 73620; 73630; 76000; 80048; 80053; 80202; 82274; 82728; 83540; 83550; 83735; 84100; 84484; 85018; 85025; 85027; 85610; 85652; 85730; 86140; 87070; 87075; 87077; 87176; 87184; 87186; 87205; 87640; 88304; 88305; 88311; 88312; 93005; 94640; 94668; 97116; 97162; 97165; 97530; 97535; 97802; 97803; 99252; 99284; J2185; J7040; J7050; J7120; A4216; G0463; J2405; J3260

== ENCOUNTER 2023-08-12 15:00 | Outpatient (RCR) | payer MEDICARE, SELFPAY ==
[2023-07-18 01:58] VITALS: BP 96/50; PULSE 77; RESP 20; TEMP 36.8; BMI 23.6
[2023-07-22 13:46] VITALS: BP 119/65; PULSE 91; RESP 18; TEMP 36.5; BMI 23.6
--- NOTE | 2023-07-22 15:20 | PN.PCM_ITS ---
History of Present Illness Date of Service: 07/22/23 Chief Complaint: Left foot wound History of Wound: Left foot wound secondary to surgery from outside provider Subjective Subjective Mr. Oliva is a 73-year-old male presenting to the wound care center today for follow-up and evaluation status post incision bone cortex, bone biopsies, peroneal brevis to longus transfer and application of skin graft substitute with application of wound VAC to left lower extremity. Date of surgery was 07/10/2023. He is residing at a SNF for wound VAC changes as well as IV antibiotics via PICC line. He denies any pain to the left lower extremity. He ambulates only with physical therapy. He currently resides in a wheelchair and rest ice and elevates his left lower extremity when needed. Denies trauma. Denies constitutional symptoms. No other pedal complaints at this time. Objective Data Objective Data Vital Signs: Vital Signs Temp Pulse Resp BP O2 Del Method O2 Flow Rate 97.7 F L 91 18 119/65 Nasal Cannula 3 07/22/23 13:46 07/22/23 13:46 07/22/23 13:46 07/22/23 13:46 07/22/23 13:46 07/18/23 01:58 Oxygen Flow Rate (L/min) 3 Oxygen Delivery Method Nasal Cannula Weight: 72.575 kg Body Mass Index (BMI) 23.6 Physical Exam Narrative Vascular: PT, peroneal arteries are biphasic on Doppler. AT and DP are monophasic on Doppler. CFT is 4 seconds. Nonpitting edema appreciated to the left lower extremity. Skin temperature gradient is warm to cool from proximal ankle to distal digits bilateral. Neurological: Light touch intact. Protective sensation is intact. Patient response to painful stimuli. Dermatological: Well coapted incision to lateral aspect of the left foot with intact skin graft substitute. No evidence of erythema drainage or sign of infection. Musculoskeletal: No palpatory tenderness appreciated to left lower extremity incision or skin graft. No pain with calf compression. Debridement Note Debridement Note Post-Debridement Measurements and Additional Note: Post-Debridement Measurements/Treatment WC - Nurse 1 - General Ulcer Assessment Start: 07/22/23 13:46 Freq: Status: Active Protocol: BRUCE.LOWEXT Activity Type Activity Date Activity User E-sign Co-sign Detail Recorded Client Recorded Date Recorded By Document 07/22/23 13:46 KW Wound center 07/22/23 13:51 KW 07/22/23 13:46 - Today's Visit Information Type of service Follow-up Visit (Physician/SUPERVISOR WINDING DEPARTMENT ) Arrival Mode Wheelchair Accompanied by Patient Identification Verified (Name & Yes ) Height and Weight Body Mass Index (BMI) 23.6 BMI Classification Normal Vital Signs Temperature (97.8 F-99.1 F) 97.7 F L Temperature Source Temporal Pulse Rate (60-100) 91 Pulse Location Monitor Respiratory Rate (12-18) 18 Respiratory rate source Observation Oxygen Delivery Method Nasal Cannula Blood Pressure (90/60-120/80) 119/65 Blood Pressure Mean (mm Hg) 83 Source Monitor Position Semi-Fowlers Blood Pressure Location Left Arm History Since Last Visit- (Skip if this is Patient's initial visit) Have you changed medications since your No last visit? Any new allergies or adverse reactions No Had a fall/change in ADL's that may No increase risk of falls Signs or symptoms of abuse and/or No neglect since last visit Have you been in the hospital since your No last visit? Has dressing in place as prescribed Yes Has compression in place as prescribed Yes Has offloadiing in place as prescribed Yes Experienced any changes in pain level or No management Left Footwear Multipodus Splint/Boot Right Footwear Slipper Pain Scale: 0-10 Numeric Is Patient Pain Free? Yes - Nurse 1 - General Ulcer Measurement Start: 07/22/23 13:46 Freq: Status: Active Protocol: Activity Type Activity Date Activity User E-sign Co-sign Detail Recorded Client Recorded Date Recorded By Document 07/22/23 13:46 Wound center 07/22/23 13:51 07/22/23 13:46 Wound Center Nurse 1 1. L Lateral foot POST-OP -Current Size (cm) - Length 0.1 -Current Size (cm) - Width 0.1 -Current Size (cm) - Depth 0.1 -Total Square Cm 0.01 -Exudate Amt Medium -Exudate Type Serosanguineous -Wound Margin Distinct, Outline Attached -Granulation Amt Medium (34-66%) -Granulation Quality [place] -Necrosis Amt Medium (34-66%) -Necrotic Tissue Type Adherent Slough -Texture (Terri-wound Skin Appearance) Assessed -Moisture (Terri-wound Skin Appearance) Assessed -Color (Terri-wound Skin Appearance) Assessed -Temperature (Terri-wound Skin No Abnormality Appearance) (Pt Warm) -Tenderness on Palpation (Terri-wound No Skin Appearance) -Ulcer Cleansing Soap and Water -Foul Odor after Cleansing No -Wound Comment(s) SUTURES INTACT - Nurse 2 - General Ulcer CM Notes Start: 07/22/23 13:46 Freq: Status: Active Protocol: Activity Type Activity Date Activity User E-sign Co-sign Detail Recorded Client Recorded Date Recorded By Document 07/22/23 14:03 [id number] 07/22/23 14:04 07/22/23 14:03 Wound Center Nurse 2 -Correct Patient No -Correct Side, Site, Position No -Correct Procedure No -Procedure Performed No -Post Debridement (cm) - Length 0.1 -Post Debridement (cm) - Width 0.1 -Post Debridement (cm) - Depth 0.1 -Total Square (Post) (cm) 0.01 -Area of Debridement (cm) - Length 0.1 -Area of Debridement (cm) - Width 0.1 -Total Square (Area) (cm) 0.01 -Wound/Ulcer Outcome Not Healed Pain Scale: 0-10 Numeric Is Patient Pain Free? Yes - Nurse 3 - General Ulcer D/C NN Start: 07/22/23 13:46 Freq: Status: Active Protocol: Activity Type Activity Date Activity User E-sign Co-sign Detail Recorded Client Recorded Date Recorded By Document 07/22/23 14:27 [facility] [id number] 07/22/23 14:28 [facility] 07/22/23 14:27 Wound Care Center Nurse 3 1. L Lateral foot POST-OP -Ulcer Cleansing Rinsed/ Irrigated with Saline -Foul Odor after Cleansing No -Primary Dressing Applied NonAdherent Contact Layer -Other Dressing HYDROGEL -Primary Dressing Covered/Secured with Dry Gauze & Roll Gauze, Secured with Tape -Other Covering ABD; SPLINT Right -Compression Wrap Thad Wrap -Other TO SECURE SPLINT Treatment Response Procedure Tolerated Well Pain Scale: 0-10 Numeric Is Patient Pain Free? Yes - Visit Discharge Discharge Condition Stable Ambulatory Status Ambulatory Transportation Private Auto Assessment/Plan Assessment/Plan (1) Strain of muscle(s) and tendon(s) of peroneal muscle group at lower leg level, left leg, initial encounter: CODE(S): S86.312A - Strain of muscle(s) and tendon(s) of peroneal muscle group at lower leg level, left leg, initial encounter PLAN: Patient was examined and evaluated. All findings were discussed with the patient. All questions were answered to the patient's satisfaction. The patient incision is well coapted with suture and he is recovering well to the left foot surgery. Skin graft substitute was intact. We were going to put the wound VAC on but the dressing/wound VAC supplies were not brought with the patient today. Triple-lumen antibiotic and Adaptic was applied to the left foot followed by dry sterile dressing and Thad wrap. Patient will have the wound VAC change when he gets to the facility. The patient will follow-up in 2 weeks for skin graft substitute removal. He left the wound care center pleased with his visit. Continue IV antibiotics through PICC line per infectious disease recommendation. Follow-up at the wound care center with Dr. Guaman in 2 week. (2) Other acute osteomyelitis, left ankle and foot: CODE(S): M86.172 - Other acute osteomyelitis, left ankle and foot (3) Non-pressure chronic ulcer of other part of left foot with necrosis of bone: CODE(S): L97.524 - Non-pressure chronic ulcer of other part of left foot with necrosis of bone (4) Other specified peripheral vascular diseases: CODE(S): I73.89 - Other specified peripheral vascular diseases
--- NOTE | 2023-07-24 09:15 | WC ---
07/22/2023 POST SURGERY LEFT LATERAL FOOT
[2023-08-05 14:50] VITALS: BP 147/86; PULSE 92; RESP 20; TEMP 35.9; BMI 23.6
--- NOTE | 2023-08-05 16:43 | PCM.WC.PN ---
History of Present Illness Date of Service: 08/05/23 Chief Complaint: Left foot wound History of Wound: Left foot wound secondary to surgery from outside provider Subjective Subjective Mr. Oliva is a 73-year-old male presenting to the wound care center today for follow-up and evaluation status post incision bone cortex, bone biopsies, peroneal brevis to longus transfer and application of skin graft substitute with application of wound VAC to left lower extremity. Date of surgery was 07/10/2023. He is residing at a SNF for wound VAC changes as well as IV antibiotics via PICC line. He denies any pain to the left lower extremity. He ambulates only with physical therapy. He currently resides in a wheelchair and rest ice and elevates his left lower extremity when needed. He admits to bilateral upper extremity swelling and treated with compression wraps. Denies trauma. Denies constitutional symptoms. No other pedal complaints at this time. Objective Data Objective Data Vital Signs: Vital Signs Temp Pulse Resp BP O2 Del Method O2 Flow Rate 96.7 F L 92 20 H 147/86 H Nasal Cannula 4 08/05/23 14:50 08/05/23 14:50 08/05/23 14:50 08/05/23 14:50 08/05/23 14:50 08/05/23 14:50 Oxygen Flow Rate (L/min) 4 Oxygen Delivery Method Nasal Cannula Weight: 72.575 kg Body Mass Index (BMI) 23.6 Physical Exam Narrative ascular: PT, peroneal arteries are biphasic on Doppler. AT and DP are monophasic on Doppler. CFT is 4 seconds. Nonpitting edema appreciated to the left lower extremity. +1 pitting edema appreciated to the right lower extremity. Skin temperature gradient is warm to cool from proximal ankle to distal digits bilateral. Neurological: Light touch intact. Protective sensation is intact. Patient response to painful stimuli. Dermatological: Well coapted incision to lateral aspect of the left foot with intact skin graft substitute. No evidence of erythema drainage or sign of infection. After graft removal full-thickness ulceration measuring 5.0 x 1.6 x 1.1 cm. No malodor or probe to bone. Excision debridement down to and including subcutaneous tissue of the left lateral full-thickness ulceration with a number 3 mm dermal curette without incident. Predebridement measurement was graft. Postdebridement measurement is 5.0 x 1.6 x 1.1 cm. Musculoskeletal: No palpatory tenderness appreciated to left lower extremity incision or skin graft. No pain with calf compression. Debridement Note Debridement Note Debridement Free Text: Excision debridement down to and including subcutaneous tissue of the left lateral full-thickness ulceration with a number 3 mm dermal curette without incident. Predebridement measurement was graft. Postdebridement measurement is 5.0 x 1.6 x 1.1 cm. Post-Debridement Measurements and Additional Note: Post-Debridement Measurements/Treatment - Nurse 1 - General Ulcer Assessment Start: 07/22/23 13:46 Freq: Status: Active Protocol: BRUCE.LOWEXT Activity Type Activity Date Activity User E-sign Co-sign Detail Recorded Client Recorded Date Recorded By Document 07/22/23 13:46 KW Wound center 07/22/23 13:51 KW Document 08/05/23 14:50 KW j 08/05/23 15:08 KW 07/22/23 08/05/23 13:46 14:50 - Today's Visit Information Type of service Follow-up Visit Follow-up Visit (Physician/RN CLINICIAN (Physician/RN CLINICIAN ) ) Arrival Mode Wheelchair Wheelchair Accompanied by Patient Identification Verified (Name & Yes Yes ) Height and Weight Body Mass Index (BMI) 23.6 23.6 BMI Classification Normal Normal Vital Signs Temperature (97.8 F-99.1 F) 97.7 F L 96.7 F L Temperature Source Temporal Temporal Pulse Rate (60-100) 91 92 Pulse Location Monitor Monitor Respiratory Rate (12-18) 18 20 H Respiratory rate source Observation Observation Oxygen Delivery Method Nasal Cannula Nasal Cannula O2 L/MIN (L/min) 4 Blood Pressure (90/60-120/80) 119/65 147/86 H Blood Pressure Mean (mm Hg) 83 106 Source Monitor Monitor Position Semi-Fowlers Semi-Fowlers Blood Pressure Location Left Arm Left Arm History Since Last Visit- (Skip if this is Patient's initial visit) Have you changed medications since your No No last visit? Any new allergies or adverse reactions No No Had a fall/change in ADL's that may No No increase risk of falls Signs or symptoms of abuse and/or No No neglect since last visit Have you been in the hospital since your No No last visit? Has dressing in place as prescribed Yes Yes Has compression in place as prescribed Yes Yes Has offloadiing in place as prescribed Yes Yes Experienced any changes in pain level or No No management Left Footwear Multipodus Multipodus Splint/Boot Splint/Boot Right Footwear Slipper Regular Shoe Pain Scale: 0-10 Numeric Is Patient Pain Free? Yes Yes WC - Nurse 1 - General Ulcer Measurement Start: 07/22/23 13:46 Freq: Status: Active Protocol: Activity Type Activity Date Activity User E-sign Co-sign Detail Recorded Client Recorded Date Recorded By Document 07/22/23 13:46 KW Wound center 07/22/23 13:51 KW Document 08/05/23 14:50 KW j 08/05/23 15:08 KW 07/22/23 08/05/23 13:46 14:50 Wound Center Nurse 1 1. L Lateral foot POST-OP -Current Size (cm) - Length 0.1 2 -Current Size (cm) - Width 0.1 0.3 -Current Size (cm) - Depth 0.1 1 -Total Square Cm 0.01 0.6 -Exudate Amt Medium Small -Exudate Type Serosanguineous Serosanguineous -Wound Margin Distinct, Distinct, Outline Outline Attached Attached -Granulation Amt Medium (34-66%) Large (67-100%) -Granulation Quality [place] -Necrosis Amt Medium (34-66%) -Necrotic Tissue Type Adherent Slough -Texture (Terri-wound Skin Appearance) Assessed Assessed -Moisture (Terri-wound Skin Appearance) Assessed Assessed, Maceration -Color (Terri-wound Skin Appearance) Assessed Assessed -Temperature (Terri-wound Skin No Abnormality No Abnormality Appearance) (Pt Warm) (Pt Warm) -Tenderness on Palpation (Terri-wound No No Skin Appearance) -Ulcer Cleansing Soap and Water Soap and Water -Foul Odor after Cleansing No No -Anesthetic Used 4% Lidocaine Solution -Wound Comment(s) SUTURES INTACT WC - Nurse 2 - General Ulcer CM Notes Start: 07/22/23 13:46 Freq: Status: Active Protocol: Activity Type Activity Date Activity User E-sign Co-sign Detail Recorded Client Recorded Date Recorded By Document 07/22/23 14:03 JF [id number] 07/22/23 14:04 Document 08/05/23 15:28 [id number] 08/05/23 15:34 JF 07/22/23 08/05/23 14:03 15:28 Wound Center Nurse 2 1. L Lateral foot POST-OP -Time 15:30 -Correct Patient No Yes -Correct Side, Site, Position No Yes -Correct Procedure No Yes -Procedure Performed No Yes -Type of Procedure Debridement -Clinical Debridement Muscle / Fascia -Tissue Removed Muscle,Fascia -Post Debridement (cm) - Length 0.1 5.0 -Post Debridement (cm) - Width 0.1 1.6 -Post Debridement (cm) - Depth 0.1 1.1 -Total Square (Post) (cm) 0.01 8.00 -Area of Debridement (cm) - Length 0.1 5.0 -Area of Debridement (cm) - Width 0.1 1.6 -Total Square (Area) (cm) 0.01 8.00 -Tunneling No -Undermining/Tunneling No -Circular Undermining No -Wound/Ulcer Outcome Not Healed Not Healed -Ulcer Cleansing Rinsed/ Irrigated with Saline -Foul Odor after Cleansing No -Bioengineered Tissue No -Bleeding Controlled with Pressure -Treatment Response Procedure Tolerated Well -Offloading Yes -Type of Offloading Surgical Shoe -Debridement - Muscle / Fascia, 1st Yes 20sq cm Pain Scale: 0-10 Numeric Is Patient Pain Free? Yes Yes WC - Nurse 3 - General Ulcer D/C NN Start: 07/22/23 13:46 Freq: Status: Active Protocol: Activity Type Activity Date Activity User E-sign Co-sign Detail Recorded Client Recorded Date Recorded By Document 07/22/23 14:27 [facility] [id number] 07/22/23 14:28 [facility] Document 08/05/23 15:43 DL [id number] 08/05/23 15:57 DL 07/22/23 08/05/23 14:27 15:43 Wound Care Center Nurse 3 1. L Lateral foot POST-OP -Ulcer Cleansing Rinsed/ Soap and Water Irrigated with Saline -Foul Odor after Cleansing No No -Negative Pressure Wound Therapy Continue -Setting (mmHg) 125 -Negative Pressure is Continuous -Primary Dressing Applied NonAdherent Contact Layer -Other Dressing HYDROGEL -Primary Dressing Covered/Secured with Dry Gauze & Roll Gauze, Secured with Tape -Other Covering ABD; SPLINT -NPWT Application Charge NPWT & Debridement (nc ) Right -Compression Wrap Thad Wrap Thad Wrap -Other TO SECURE SPLINT Treatment Response Procedure Procedure Tolerated Well Tolerated Well Pain Scale: 0-10 Numeric Is Patient Pain Free? Yes Yes WC - Visit Discharge Discharge Condition Stable Stable Ambulatory Status Ambulatory Wheelchair Transportation Private Auto Private Auto Facility Type Home Health Orders Sent Yes Assessment/Plan Assessment/Plan (1) Non-pressure chronic ulcer of other part of left foot with fat layer exposed: CODE(S): L97.522 - Non-pressure chronic ulcer of other part of left foot with fat layer exposed PLAN: Patient was examined and evaluated. All findings were discussed with the patient. All questions were answered to the patient's satisfaction. Excision debridement down to and including subcutaneous tissue of the left lateral full-thickness ulceration with a number 3 mm dermal curette without incident. Predebridement measurement was graft. Postdebridement measurement is 5.0 x 1.6 x 1.1 cm. The left lower extremities were cleaned and patted dry. Negative pressure wound VAC was applied to the left lower extremity per the delinquent tax collection assistant's recommendation. It will be set at 125 mmHg continuous. Patient will have every other day wound VAC changes at the SNF. And he will follow-up next week. Recommended and encouraged the patient to follow-up with the doctor at the SNF to see if he would recommend a echocardiogram secondary to the patient's bilateral lower extremity swelling. Follow-up at the wound care center with Dr. Guaman in 1 week.
[2023-08-12 15:13] VITALS: RESP 20; TEMP 36.4; BMI 23.6
--- NOTE | 2023-08-12 22:01 | PCM.WC.PN ---
History of Present Illness Date of Service: 08/12/23 Chief Complaint: Left foot wound History of Wound: Left foot wound secondary to surgery from outside provider Subjective Subjective Mr. Oliva is a 73-year-old male presenting to the wound care center today for follow-up and evaluation of full-thickness ulceration secondary to incision bone cortex to the left lateral foot. Patient has been getting wound VAC changes at the SNF. He still complains of bilateral leg swelling. He has gotten blood work but not a echocardiogram. He is concern for heart failure as he is having more difficulty breathing. He is currently on nasal cannula which she was prior to presenting to the wound care center or [facility]. He denies any pain to the left foot. He also complains of redness and maceration to the great toenail of the left foot. He is unsure how the great toenail got injured. He denies trauma. Denies constitutional symptoms. No other pedal complaints at this time. Objective Data Objective Data Vital Signs: Vital Signs Temp Pulse Resp BP O2 Del Method O2 Flow Rate 97.6 F L 92 20 H 147/86 H Nasal Cannula 4 08/12/23 15:13 08/05/23 14:50 08/12/23 15:13 08/05/23 14:50 08/12/23 15:13 08/05/23 14:50 Oxygen Flow Rate (L/min) 4 Oxygen Delivery Method Nasal Cannula Weight: 72.575 kg Body Mass Index (BMI) 23.6 Physical Exam Narrative ascular: PT, peroneal arteries are biphasic on Doppler. AT and DP are monophasic on Doppler. CFT is 4 seconds. Nonpitting edema appreciated to the left lower extremity. +1 pitting edema appreciated to the right lower extremity. Skin temperature gradient is warm to cool from proximal ankle to distal digits bilateral. Neurological: Light touch intact. Protective sensation is intact. Patient response to painful stimuli. Dermatological: Evidence of erythema and maceration to the nailbed of the left hallux. Erythema is blanchable to the left hallux. Well coapted incision to lateral aspect of the left foot with intact skin graft substitute. No evidence of erythema drainage or sign of infection. Full-thickness ulceration measuring 4.1 x 1.6 x 1.2 cm. No malodor or probe to bone. Excision debridement down to and including subcutaneous tissue of the left lateral full-thickness ulceration with a number 3 mm dermal curette without incident. Predebridement measurement was 3.9 x 1.5 x 0.8. Postdebridement measurement is 4.1 x 1.6 x 1.1 cm. Musculoskeletal: No palpatory tenderness appreciated to left lower extremity incision or skin graft. No pain with calf compression. Debridement Note Debridement Note Debridement Free Text: Excision debridement down to and including subcutaneous tissue of the left lateral full-thickness ulceration with a number 3 mm dermal curette without incident. Predebridement measurement was 3.9 x 1.5 x 0.8. Postdebridement measurement is 4.1 x 1.6 x 1.1 cm. Post-Debridement Measurements and Additional Note: Post-Debridement Measurements/Treatment - Nurse 1 - General Ulcer Assessment Start: 07/22/23 13:46 Freq: Status: Active Protocol: BRUCE.LOWEXT Activity Type Activity Date Activity User E-sign Co-sign Detail Recorded Client Recorded Date Recorded By Document 07/22/23 13:46 KW Wound center 07/22/23 13:51 KW Document 08/05/23 14:50 KW j 08/05/23 15:08 KW Document 08/12/23 15:13 KW ; 08/12/23 15:26 KW 07/22/23 08/05/23 08/12/23 13:46 14:50 15:13 - Today's Visit Information Type of service Follow-up Visit Follow-up Visit Follow-up Visit (Physician/COAGULATING DRYING SUPERVISOR (Physician/COAGULATING DRYING SUPERVISOR (Physician/COAGULATING DRYING SUPERVISOR ) ) ) Arrival Mode Wheelchair Wheelchair Wheelchair Accompanied by Patient Identification Verified (Name & Yes Yes Yes ) Height and Weight Body Mass Index (BMI) 23.6 23.6 23.6 BMI Classification Normal Normal Normal Vital Signs Temperature (97.8 F-99.1 F) 97.7 F L 96.7 F L 97.6 F L Temperature Source Temporal Temporal Temporal Pulse Rate (60-100) 91 92 Pulse Location Monitor Monitor Monitor Respiratory Rate (12-18) 18 20 H 20 H Respiratory rate source Observation Observation Observation Oxygen Delivery Method Nasal Cannula Nasal Cannula Nasal Cannula O2 L/MIN (L/min) 4 Blood Pressure (90/60-120/80) 119/65 147/86 H Blood Pressure Mean (mm Hg) 83 106 Source Monitor Monitor Monitor Position Semi-Fowlers Semi-Fowlers Semi-Fowlers Blood Pressure Location Left Arm Left Arm Left Arm History Since Last Visit- (Skip if this is Patient's initial visit) Have you changed medications since your No No No last visit? Any new allergies or adverse reactions No No No Had a fall/change in ADL's that may No No No increase risk of falls Signs or symptoms of abuse and/or No No No neglect since last visit Have you been in the hospital since your No No No last visit? Has dressing in place as prescribed Yes Yes Yes Has compression in place as prescribed Yes Yes Yes Has offloadiing in place as prescribed Yes Yes Yes Experienced any changes in pain level or No No No management Left Footwear Multipodus Multipodus Slipper Splint/Boot Splint/Boot Right Footwear Slipper Regular Shoe Slipper Pain Scale: 0-10 Numeric Is Patient Pain Free? Yes Yes Yes WC - Nurse 1 - General Ulcer Measurement Start: 07/22/23 13:46 Freq: Status: Active Protocol: Activity Type Activity Date Activity User E-sign Co-sign Detail Recorded Client Recorded Date Recorded By Document 07/22/23 13:46 KW Wound center 07/22/23 13:51 KW Document 08/05/23 14:50 KW j 08/05/23 15:08 KW Document 08/12/23 15:13 KW ; 08/12/23 15:26 KW 07/22/23 08/05/23 08/12/23 13:46 14:50 15:13 Wound Center Nurse 1 #2 LT HALLUX -Current Size (cm) - Length 1.3 -Current Size (cm) - Width 1.5 -Current Size (cm) - Depth 0.1 -Total Square Cm 1.95 -Date of Last Picture (Recall this 08/12/23 field) -Exudate Amt Small -Exudate Type Serosanguineous -Wound Margin Distinct, Outline Attached -Granulation Amt Large (67-100%) -Granulation Quality Red -Texture (Terri-wound Skin Appearance) Assessed -Moisture (Terri-wound Skin Appearance) Assessed -Color (Terri-wound Skin Appearance) Assessed -Temperature (Terri-wound Skin No Abnormality Appearance) (Pt Warm) -Tenderness on Palpation (Terri-wound No Skin Appearance) -Ulcer Cleansing Soap and Water -Foul Odor after Cleansing No -Wound Comment(s) TOE NAIL FELL OFF 1. L Lateral foot POST-OP -Current Size (cm) - Length 0.1 2 3.7 -Current Size (cm) - Width 0.1 0.3 1.8 -Current Size (cm) - Depth 0.1 1 0.4 -Total Square Cm 0.01 0.6 6.66 -Exudate Amt Medium Small Small -Exudate Type Serosanguineous Serosanguineous Serosanguineous -Wound Margin Distinct, Distinct, Distinct, Outline Outline Outline Attached Attached Attached -Granulation Amt Medium (34-66%) Large (67-100%) Medium (34-66%) -Granulation Quality [place] Red -Necrosis Amt Medium (34-66%) Medium (34-66%) -Necrotic Tissue Type Adherent Slough Adherent Slough -Texture (Terri-wound Skin Appearance) Assessed Assessed Assessed -Moisture (Terri-wound Skin Appearance) Assessed Assessed, Assessed, Maceration Maceration -Color (Terri-wound Skin Appearance) Assessed Assessed Assessed -Temperature (Terri-wound Skin No Abnormality No Abnormality No Abnormality Appearance) (Pt Warm) (Pt Warm) (Pt Warm) -Tenderness on Palpation (Terri-wound No No No Skin Appearance) -Ulcer Cleansing Soap and Water Soap and Water Soap and Water -Foul Odor after Cleansing No No No -Anesthetic Used 4% Lidocaine 5% Lidocaine Solution Gel -Wound Comment(s) SUTURES INTACT Left Calf (cm) 35.5 Left Ankle (cm) 21 WC - Nurse 2 - General Ulcer CM Notes Start: 07/22/23 13:46 Freq: Status: Active Protocol: Activity Type Activity Date Activity User E-sign Co-sign Detail Recorded Client Recorded Date Recorded By Document 07/22/23 14:03 [id number] 07/22/23 14:04 Document 08/05/23 15:28 [id number] 08/05/23 15:34 Document 08/12/23 15:31 000 08/12/23 15:38 07/22/23 08/05/23 08/12/23 14:03 15:28 15:31 Wound Center Nurse 2 #2 LT HALLUX -Correct Patient No -Correct Side, Site, Position No -Correct Procedure No -Procedure Performed No 1. L Lateral foot POST-OP -Time 15:30 15:32 -Correct Patient No Yes Yes -Correct Side, Site, Position No Yes Yes -Correct Procedure No Yes Yes -Procedure Performed No Yes Yes -Type of Procedure Debridement Debridement -Clinical Debridement Muscle / Fascia Muscle / Fascia -Tissue Removed Muscle,Fascia Muscle,Fascia -Post Debridement (cm) - Length 0.1 5.0 4.1 -Post Debridement (cm) - Width 0.1 1.6 1.6 -Post Debridement (cm) - Depth 0.1 1.1 1.2 -Total Square (Post) (cm) 0.01 8.00 6.56 -Area of Debridement (cm) - Length 0.1 5.0 4.1 -Area of Debridement (cm) - Width 0.1 1.6 1.6 -Total Square (Area) (cm) 0.01 8.00 6.56 -Tunneling No No -Undermining/Tunneling No No -Circular Undermining No No -Wound/Ulcer Outcome Not Healed Not Healed Not Healed -Ulcer Cleansing Rinsed/ Rinsed/ Irrigated with Irrigated with Saline Saline -Foul Odor after Cleansing No No -Bioengineered Tissue No No -Bleeding Controlled with Pressure Pressure -Treatment Response Procedure Procedure Tolerated Well Tolerated Well -Offloading Yes Yes -Type of Offloading Surgical Shoe Surgical Shoe -Debridement - Muscle / Fascia, 1st Yes Yes 20sq cm Pain Scale: 0-10 Numeric Is Patient Pain Free? Yes Yes Yes WC - Nurse 3 - General Ulcer D/C NN Start: 07/22/23 13:46 Freq: Status: Active Protocol: Activity Type Activity Date Activity User E-sign Co-sign Detail Recorded Client Recorded Date Recorded By Document 07/22/23 14:27 [facility] [id number] 07/22/23 14:28 [facility] Document 08/05/23 15:43 DL [id number] 08/05/23 15:57 DL Document 08/12/23 16:42 KW ; 08/12/23 16:43 KW 07/22/23 08/05/23 08/12/23 14:27 15:43 16:42 Wound Care Center Nurse 3 #2 LT HALLUX -Other Dressing BETADINE -Primary Dressing Covered/Secured with Dry Gauze, Secured with Tape 1. L Lateral foot POST-OP -Ulcer Cleansing Rinsed/ Soap and Water Irrigated with Saline -Foul Odor after Cleansing No No -Negative Pressure Wound Therapy Continue Continue -Setting (mmHg) 125 125 -Negative Pressure is Continuous Continuous -Primary Dressing Applied NonAdherent Contact Layer -Other Dressing HYDROGEL -Primary Dressing Covered/Secured with Dry Gauze & Roll Gauze, Secured with Tape -Other Covering ABD; SPLINT -NPWT Application Charge NPWT & NPWT & Debridement (nc Debridement (nc ) ) Right -Compression Wrap Thad Wrap Thad Wrap Thad Wrap -Other TO SECURE SPLINT Treatment Response Procedure Procedure Tolerated Well Tolerated Well Pain Scale: 0-10 Numeric Is Patient Pain Free? Yes Yes Yes WC - Visit Discharge Discharge Condition Stable Stable Stable Ambulatory Status Ambulatory Wheelchair Wheelchair Transportation Private Auto Private Auto Medication Reconcilliation completed & No provided to patient/care provider Clinical Summary of Care Provided Yes Facility Type Home Health Orders Sent Yes Assessment/Plan Assessment/Plan (1) Non-pressure chronic ulcer of other part of left foot with fat layer exposed: CODE(S): L97.522 - Non-pressure chronic ulcer of other part of left foot with fat layer exposed PLAN: Patient was examined and evaluated. All findings were discussed with the patient. All questions were answered to the patient's satisfaction. Excision debridement down to and including subcutaneous tissue of the left lateral full-thickness ulceration with a number 3 mm dermal curette without incident. Predebridement measurement was 3.9 x 1.5 x 0.8. Postdebridement measurement is 4.1 x 1.6 x 1.1 cm. The left lower extremities were cleaned and patted dry. Negative pressure wound VAC was applied to the left lower extremity per the health administration teacher's recommendation. It will be set at 125 mmHg continuous. Patient will have every other day wound VAC changes at the SNF. And he will follow-up next week. Recommended and encouraged the patient to follow-up with the doctor at the SNF to see if he would recommend a echocardiogram secondary to the patient's bilateral lower extremity swelling. Left hallux was dressed with Betadine paint and dry sterile dressing. Patient will continue PICC line antibiotics per infectious disease. Follow-up at the wound care center with Dr. Guaman in 1 week. (2) Contusion of left great toe with damage to nail: CODE(S): S90.212A - Contusion of left great toe with damage to nail, initial encounter QUALIFIERS: Encounter type: initial encounter Qualified Code(s): S90.212A - Contusion of left great toe with damage to nail, initial encounter
== END 2023-08-16 23:59 | disposition home or self-care (01) ==
LOC: WC 15:00
PROVIDERS: PCP Family Medicine; Referring Provider Podiatrist Foot & Ankle Surgery; Visit Provider Podiatrist Foot & Ankle Surgery
DX: L97.524 Non-pressure chronic ulcer of other part of left foot with necrosis of bone (principal); M86.172 Other acute osteomyelitis, left ankle and foot; S86.312A Strain of muscle(s) and tendon(s) of peroneal muscle group at lower leg level, left leg, initial encounter; S90.212A Contusion of left great toe with damage to nail, initial encounter; X58.XXXA Exposure to other specified factors, initial encounter; I73.89 Other specified peripheral vascular diseases; Z99.3 Dependence on wheelchair; Z79.01 Long term (current) use of anticoagulants; Z79.82 Long term (current) use of aspirin; Z79.899 Other long term (current) drug therapy
CPT/HCPCS: 11043; 99213; G0463

== ENCOUNTER 2023-09-16 15:15 | Outpatient (RCR) | payer MEDICARE, SELFPAY ==
[2023-08-17 00:41] VITALS: BP 96/50; PULSE 77; RESP 20; TEMP 36.8; BMI 23.6
[2023-08-19 14:50] VITALS: BP 144/81; PULSE 89; RESP 18; TEMP 35.9; BMI 23.6
--- NOTE | 2023-08-19 15:42 | PCM.WC.PN ---
History of Present Illness Date of Service: 08/19/23 Chief Complaint: Left foot wound History of Wound: Left foot wound secondary to surgery from outside provider Subjective Subjective Mr. Oliva is a 73-year-old male presenting to the wound care center today for follow-up and evaluation of full-thickness ulceration secondary to incision bone cortex to the left lateral foot. Patient has been getting wound VAC changes at the [facility]. Patient did have his cardiac echo done that shows evidence of a normal EF but evidence of severe pulmonary hypertension. He does not have a cardiac or primary medicine follow-up. Patient states that his right hand is much swollen than last time but states that is from a tight compression wrap. He has been noticing increasing swelling to the bilateral legs and has a blister on the right ankle. No treatment thus far. Denies trauma. Denies constitutional symptoms. Other pedal complaints at this time. Objective Data Objective Data Vital Signs: Vital Signs Temp Pulse Resp BP O2 Del Method O2 Flow Rate 96.7 F L 89 18 144/81 H Room Air 3 08/19/23 14:50 08/19/23 14:50 08/19/23 14:50 08/19/23 14:50 08/19/23 14:50 08/17/23 00:41 Oxygen Flow Rate (L/min) 3 Oxygen Delivery Method Room Air Weight: 72.575 kg Body Mass Index (BMI) 23.6 Physical Exam Narrative Vascular: PT, peroneal arteries are biphasic on Doppler. AT and DP are monophasic on Doppler. CFT is 4 seconds. Nonpitting edema appreciated to the left lower extremity. +1 pitting edema appreciated to the right lower extremity. Skin temperature gradient is warm to cool from proximal ankle to distal digits bilateral. Neurological: Light touch intact. Protective sensation is intact. Patient response to painful stimuli. Dermatological: Evidence of erythema and maceration to the nailbed of the left hallux, improving. Well coapted incision to lateral aspect of the left foot. No evidence of erythema drainage or sign of infection. Full-thickness ulceration measuring 4.5 x 1.6 x 1.7 cm. No malodor or probe to bone. Excision debridement down to and including subcutaneous tissue of the left lateral full-thickness ulceration with a number 3 mm dermal curette without incident. Predebridement measurement was 4.2 x 1.5 x 1.2. Postdebridement measurement is 4.5 x 1.6 x 1.7 cm. Musculoskeletal: No palpatory tenderness appreciated to left lower extremity incision or skin graft. No pain with calf compression. Debridement Note Debridement Note Debridement Free Text: Excision debridement down to and including subcutaneous tissue of the left lateral full-thickness ulceration with a number 3 mm dermal curette without incident. Predebridement measurement was 4.2 x 1.5 x 1.2. Postdebridement measurement is 4.5 x 1.6 x 1.7 cm. Post-Debridement Measurements and Additional Note: Post-Debridement Measurements/Treatment - Nurse 1 - General Ulcer Assessment Start: 08/19/23 14:50 Freq: Status: Active Protocol: CARLOS Activity Type Activity Date Activity User E-sign Co-sign Detail Recorded Client Recorded Date Recorded By Document 08/19/23 14:50 KW 0000 08/19/23 14:56 KW 08/19/23 14:50 WC - Today's Visit Information Type of service Follow-up Visit (Physician/MOTTLER MACHINE FEEDER ) Arrival Mode Wheelchair Accompanied by Patient Identification Verified (Name & Yes ) Height and Weight Body Mass Index (BMI) 23.6 BMI Classification Normal Vital Signs Temperature (97.8 F-99.1 F) 96.7 F L Temperature Source Temporal Pulse Rate (60-100) 89 Pulse Location Monitor Respiratory Rate (12-18) 18 Respiratory rate source Observation Oxygen Delivery Method Room Air Blood Pressure (90/60-120/80) 144/81 H Blood Pressure Mean (mm Hg) 102 Source Monitor Position Semi-Fowlers Blood Pressure Location Left Arm History Since Last Visit- (Skip if this is Patient's initial visit) Have you changed medications since your No last visit? Any new allergies or adverse reactions No Had a fall/change in ADL's that may No increase risk of falls Signs or symptoms of abuse and/or No neglect since last visit Have you been in the hospital since your No last visit? Has dressing in place as prescribed Yes Has compression in place as prescribed Yes Has offloadiing in place as prescribed N/A Experienced any changes in pain level or No management Left Footwear Slipper Right Footwear Slipper Pain Scale: 0-10 Numeric Is Patient Pain Free? Yes - Nurse 1 - General Ulcer Measurement Start: 08/19/23 14:50 Freq: Status: Active Protocol: Activity Type Activity Date Activity User E-sign Co-sign Detail Recorded Client Recorded Date Recorded By Document 08/19/23 14:50 KW 0000 08/19/23 14:56 KW 08/19/23 14:50 Wound Center Nurse 1 #2 LT HALLUX -Combined with other wound No -Current Size (cm) - Length 1.7 -Current Size (cm) - Width 2.3 -Current Size (cm) - Depth 0.1 -Total Square Cm 3.91 -Photo Taken No -Epithelialization Small 1-33% -Tunneling No -Undermining/Tunneling No -Circular Undermining No -Exudate Amt Small -Exudate Type Serosanguineous -Wound Margin Flat & Intact -Granulation Amt Large (67-100%) -Granulation Quality Red -Slough/Fibrin Yes -Necrosis Amt Small (1-33%) -Necrotic Tissue Type Adherent Slough -Structure Exposed N/A -Texture (Terri-wound Skin Appearance) Assessed -Moisture (Terri-wound Skin Appearance) Assessed, Maceration -Color (Terri-wound Skin Appearance) Assessed -Temperature (Terri-wound Skin No Abnormality Appearance) (Pt Warm) -Tenderness on Palpation (Terri-wound No Skin Appearance) -Ulcer Cleansing Wound Cleanser -Foul Odor after Cleansing No -Anesthetic Used 4% Lidocaine Solution 1. L Lateral foot POST-OP -Combined with other wound No -Current Size (cm) - Length 4 -Current Size (cm) - Width 1.5 -Current Size (cm) - Depth 1.0 -Total Square Cm 6.0 -Photo Taken No -Epithelialization Small 1-33% -Tunneling No -Undermining/Tunneling No -Circular Undermining No -Exudate Amt Medium -Exudate Type Serosanguineous -Wound Margin Flat & Intact -Granulation Amt Medium (34-66%) -Granulation Quality Red -Slough/Fibrin Yes -Necrosis Amt Small (1-33%) -Necrotic Tissue Type Adherent Slough -Structure Exposed N/A -Texture (Terri-wound Skin Appearance) Assessed, Localized Edema -Moisture (Terri-wound Skin Appearance) Assessed,Dry/ Scaly -Color (Terri-wound Skin Appearance) Assessed -Temperature (Terri-wound Skin No Abnormality Appearance) (Pt Warm) -Tenderness on Palpation (Terri-wound No Skin Appearance) -Ulcer Cleansing Wound Cleanser -Foul Odor after Cleansing No -Anesthetic Used 4% Lidocaine Solution Lower Limb Edema Present Yes Right Calf (cm) 35.5 Right Ankle (cm) 26.5 Left Calf (cm) 36.5 Left Ankle (cm) 22.7 BRUCE - Nurse 2 - General Ulcer CM Notes Start: 08/19/23 14:50 Freq: Status: Active Protocol: Activity Type Activity Date Activity User E-sign Co-sign Detail Recorded Client Recorded Date Recorded By Document 08/19/23 15:01 JF 0000 08/19/23 15:05 JF 08/19/23 15:01 Wound Center Nurse 2 #2 LT HALLUX -Correct Patient No -Correct Side, Site, Position No -Correct Procedure No -Procedure Performed No -Wound/Ulcer Outcome Not Healed 1. L Lateral foot POST-OP -Time 15:01 -Correct Patient Yes -Correct Side, Site, Position Yes -Correct Procedure Yes -Procedure Performed Yes -Type of Procedure Debridement -Clinical Debridement Subcutaneous -Tissue Removed Subcutaneous -Post Debridement (cm) - Length 4.5 -Post Debridement (cm) - Width 1.6 -Post Debridement (cm) - Depth 1.7 -Total Square (Post) (cm) 7.20 -Area of Debridement (cm) - Length 4.5 -Area of Debridement (cm) - Width 1.6 -Total Square (Area) (cm) 7.20 -Tunneling No -Undermining/Tunneling No -Circular Undermining No -Wound/Ulcer Outcome Not Healed -Ulcer Cleansing Rinsed/ Irrigated with Saline -Foul Odor after Cleansing No -Bioengineered Tissue No -Bleeding Controlled with Pressure -Treatment Response Procedure Tolerated Well -Offloading Yes -Type of Offloading Surgical Shoe -Debridement - Subq, 1st 20sq cm Yes Pain Scale: 0-10 Numeric Is Patient Pain Free? Yes BRUCE - Nurse 3 - General Ulcer D/C NN Start: 08/19/23 14:50 Freq: Status: Active Protocol: Activity Type Activity Date Activity User E-sign Co-sign Detail Recorded Client Recorded Date Recorded By Document 08/19/23 15:19 DL [id number] 08/19/23 15:20 DL 08/19/23 15:19 Wound Care Center Nurse 3 #2 LT HALLUX -Ulcer Cleansing Rinsed/ Irrigated with Saline -Foul Odor after Cleansing No -Other Dressing betadine -Primary Dressing Covered/Secured with Dry Gauze & Roll Gauze, Secured with Tape 1. L Lateral foot POST-OP -Ulcer Cleansing Soap and Water -Foul Odor after Cleansing No -Negative Pressure Wound Therapy Continue -Setting (mmHg) 125 -Negative Pressure is Continuous -NPWT Application Charge NPWT & Debridement (nc ) suzanne -Tubular Bandage Single Layer -Size of Tubigrip Used Size E -Size E ($) 2 Treatment Response Procedure Tolerated Well Pain Scale: 0-10 Numeric Is Patient Pain Free? 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 All findings were discussed with the patient. All questions were answered to the patient's satisfaction. Excision debridement down to and including subcutaneous tissue of the left lateral full-thickness ulceration with a number 3 mm dermal curette without incident. Predebridement measurement was 4.2 x 1.5 x 1.2. Postdebridement measurement is 4.5 x 1.6 x 1.7 cm. Left lower extremities were cleaned and patted dry. Wound VAC was applied per the research psychologist recommendations at 225 mm continuous. Encouraged packing the deficit in the full-thickness wound with black foam with every wound VAC dressing change. Reviewed the patient's echo shows evidence of a normal ejection fraction but the patient will need to follow-up with cardiology as he is showing severe pulmonary hypertension. The patient's right fluid-filled blister was sterilized with alcohol wipe and lanced with a #15 blade without D guillermina. Triple antibiotic and gauze was applied to the deflated blister and followed by dry sterile dressing and Tubigrip. [facility] and then his PICC line will be removed. The patient has completed 6 weeks of meropenem. Will begin authorization skin graft substitute to the full-thickness wound. Follow-up at the wound care center with Dr. Guaman in 1 week. (2) Contusion of left great toe with damage to nail: CODE(S): S90.212A - Contusion of left great toe with damage to nail, initial encounter QUALIFIERS: Encounter type: initial encounter Qualified Code(s): S90.212A - Contusion of left great toe with damage to nail, initial encounter (3) Blister of right leg: CODE(S): S80.821A - Blister (nonthermal), right lower leg, initial encounter QUALIFIERS: Encounter type: initial encounter Qualified Code(s): S80.821A - Blister (nonthermal), right lower leg, initial encounter
[2023-08-26 15:07] VITALS: BP 158/90; PULSE 93; RESP 20; TEMP 37.3; BMI 23.6
--- NOTE | 2023-08-26 16:12 | PCM.WC.PN ---
History of Present Illness Date of Service: 08/26/23 Chief Complaint: Left foot wound History of Wound: Left foot wound secondary to surgery from outside provider Subjective Subjective Mr. Oliva is a 73-year-old male presented wound care center today for follow-up evaluation of full-thickness ulceration to the lateral aspect of the left foot. Patient has been discharged from the assisted facility and is staying at home now. He is getting home health care at his home. He admits his swelling to his upper extremities and lower extremities has improved since being discharged from the assisted facility. He denies any trauma. Denies constitutional symptoms. No other pedal complaints at this time. Objective Data Objective Data Vital Signs: Vital Signs Temp Pulse Resp BP O2 Del Method O2 Flow Rate 99.2 F H 93 20 H 158/90 H Room Air 3 08/26/23 15:07 08/26/23 15:07 08/26/23 15:07 08/26/23 15:07 08/19/23 14:50 08/17/23 00:41 Oxygen Flow Rate (L/min) 3 Oxygen Delivery Method Room Air Weight: 72.575 kg Body Mass Index (BMI) 23.6 Physical Exam Narrative ascular: PT, peroneal arteries are biphasic on Doppler. AT and DP are monophasic on Doppler. CFT is 4 seconds. Nonpitting edema appreciated to the left lower extremity. +1 pitting edema appreciated to the right lower extremity, improving. Skin temperature gradient is warm to cool from proximal ankle to distal digits bilateral. Neurological: Light touch intact. Protective sensation is intact. Patient response to painful stimuli. Dermatological: Full-thickness ulceration measuring 4.5 x 1.5 x 1.5 cm. No malodor or probe to bone. Excision debridement down to and including subcutaneous tissue of the left lateral full-thickness ulceration with a number 3 mm dermal curette without incident. Predebridement measurement was 4.1 x 1.3 x 1.2. Postdebridement measurement is 4.5 x 1.5 x 1.5 cm. EpiCord 2.0 x 3.0 cm graft was applied to the left full-thickness ulceration with 100% use. First application. The graft site was free and clear of any infection. The wound/skin graft substitute was dressed with nonadherent bandage secured in place with Steri-Strips followed by bolster dressing as well as a double layer Tubigrip. Musculoskeletal: No palpatory tenderness appreciated to left lower extremity incision or skin graft. No pain with calf compression. Debridement Note Debridement Note Debridement Free Text: Excision debridement down to and including subcutaneous tissue of the left lateral full-thickness ulceration with a number 3 mm dermal curette without incident. Predebridement measurement was 4.1 x 1.3 x 1.2. Postdebridement measurement is 4.5 x 1.5 x 1.5 cm. EpiCord 2.0 x 3.0 cm graft was applied to the left full-thickness ulceration with 100% use. First application. The graft site was free and clear of any infection. The wound/skin graft substitute was dressed with nonadherent bandage secured in place with Steri-Strips followed by bolster dressing as well as a double layer Tubigrip. Post-Debridement Measurements and Additional Note: Post-Debridement Measurements/Treatment - Nurse 1 - General Ulcer Assessment Start: 08/19/23 14:50 Freq: Status: Active Protocol: CARLOS Activity Type Activity Date Activity User E-sign Co-sign Detail Recorded Client Recorded Date Recorded By Document 08/19/23 14:50 KW 0000 08/19/23 14:56 KW Document 08/26/23 15:07 DL [id number] 08/26/23 15:19 DL 08/19/23 08/26/23 14:50 15:07 - Today's Visit Information Type of service Follow-up Visit Follow-up Visit (Physician/CLOTHING DESIGNER (Physician/CLOTHING DESIGNER ) ) Arrival Mode Wheelchair Wheelchair Transfer Assistance Manual Transfer Assist (Other) x1 Accompanied by Patient Identification Verified (Name & Yes Yes ) Patient Requires Transmission-Based No Precautions Height and Weight Body Mass Index (BMI) 23.6 23.6 BMI Classification Normal Normal Vital Signs Temperature (97.8 F-99.1 F) 96.7 F L 99.2 F H Temperature Source Temporal Temporal Pulse Rate (60-100) 89 93 Pulse Location Monitor Monitor Respiratory Rate (12-18) 18 20 H Respiratory rate source Observation Oxygen Delivery Method Room Air Blood Pressure (90/60-120/80) 144/81 H 158/90 H Blood Pressure Mean (mm Hg) 102 112 Source Monitor Monitor Position Semi-Fowlers Blood Pressure Location Left Arm History Since Last Visit- (Skip if this is Patient's initial visit) Have you changed medications since your No No last visit? Any new allergies or adverse reactions No No Had a fall/change in ADL's that may No No increase risk of falls Signs or symptoms of abuse and/or No No neglect since last visit Have you been in the hospital since your No No last visit? Has dressing in place as prescribed Yes Yes Has compression in place as prescribed Yes Yes Has offloadiing in place as prescribed N/A Yes Experienced any changes in pain level or No No management Left Footwear Slipper Right Footwear Slipper Pain Scale: 0-10 Numeric Is Patient Pain Free? Yes Yes WC - Nurse 1 - General Ulcer Measurement Start: 08/19/23 14:50 Freq: Status: Active Protocol: Activity Type Activity Date Activity User E-sign Co-sign Detail Recorded Client Recorded Date Recorded By Document 08/19/23 14:50 KW 0000 08/19/23 14:56 KW Document 08/26/23 15:07 DL .[email or web address] 08/26/23 15:19 DL 08/19/23 08/26/23 14:50 15:07 Wound Center Nurse 1 #2 LT HALLUX -Combined with other wound No -Current Size (cm) - Length 1.7 0 -Current Size (cm) - Width 2.3 0 -Current Size (cm) - Depth 0.1 -Total Square Cm 3.91 0 -Photo Taken No Yes -Epithelialization Small 1-33% -Tunneling No -Undermining/Tunneling No -Circular Undermining No -Exudate Amt Small None Present -Exudate Type Serosanguineous Serosanguineous -Wound Margin Flat & Intact Flat & Intact -Granulation Amt Large (67-100%) Large (67-100%) -Granulation Quality Red [place],Red -Slough/Fibrin Yes -Necrosis Amt Small (1-33%) None Present (0 %) -Necrotic Tissue Type Adherent Slough -Structure Exposed N/A N/A -Texture (Terri-wound Skin Appearance) Assessed Scarring -Moisture (Terri-wound Skin Appearance) Assessed, No Abnormality, Maceration Maceration -Color (Terri-wound Skin Appearance) Assessed No Abnormality -Temperature (Terri-wound Skin No Abnormality No Abnormality Appearance) (Pt Warm) (Pt Warm) -Tenderness on Palpation (Terri-wound No Skin Appearance) -Ulcer Cleansing Wound Cleanser Soap and Water -Foul Odor after Cleansing No No -Anesthetic Used 4% Lidocaine 5% Lidocaine Solution Gel 1. L Lateral foot POST-OP -Combined with other wound No -Current Size (cm) - Length 4 3.5 -Current Size (cm) - Width 1.5 1.5 -Current Size (cm) - Depth 1.0 1.3 -Total Square Cm 6.0 5.25 -Photo Taken No Yes -Epithelialization Small 1-33% -Tunneling No -Undermining/Tunneling No -Circular Undermining No -Exudate Amt Medium Large -Exudate Type Serosanguineous Serosanguineous -Wound Margin Flat & Intact Distinct, Outline Attached -Granulation Amt Medium (34-66%) Medium (34-66%) -Granulation Quality Red Red -Slough/Fibrin Yes -Necrosis Amt Small (1-33%) Medium (34-66%) -Necrotic Tissue Type Adherent Slough Adherent Slough -Structure Exposed N/A N/A -Texture (Terri-wound Skin Appearance) Assessed, Scarring Localized Edema -Moisture (Terri-wound Skin Appearance) Assessed,Dry/ Maceration Scaly -Color (Terri-wound Skin Appearance) Assessed No Abnormality -Temperature (Terri-wound Skin No Abnormality No Abnormality Appearance) (Pt Warm) (Pt Warm) -Tenderness on Palpation (Terri-wound No Skin Appearance) -Ulcer Cleansing Wound Cleanser Soap and Water -Foul Odor after Cleansing No No -Anesthetic Used 4% Lidocaine 5% Lidocaine Solution Gel Lower Limb Edema Present Yes Right Calf (cm) 35.5 Right Ankle (cm) 26.5 Left Calf (cm) 36.5 Left Ankle (cm) 22.7 WC - Nurse 2 - General Ulcer CM Notes Start: 08/19/23 14:50 Freq: Status: Active Protocol: Activity Type Activity Date Activity User E-sign Co-sign Detail Recorded Client Recorded Date Recorded By Document 08/19/23 15:01 JF 0000 08/19/23 15:05 JF Document 08/26/23 15:42 JF 000 08/26/23 15:45 JF Edit Result 08/26/23 15:42 JF (1) 000 08/26/23 15:47 JF (1) 1. L Lateral foot POST-OP - Expiration Date => 02/17/28 - Product Lot Number => [id number] - Percent Used => 100 - Lot number of Saline Used => [id number] 08/19/23 08/26/23 15:01 15:42 Wound Center Nurse 2 #2 LT HALLUX -Correct Patient No No -Correct Side, Site, Position No No -Correct Procedure No No -Procedure Performed No No -Post Debridement (cm) - Length 0 -Post Debridement (cm) - Width 0 -Post Debridement (cm) - Depth 0 -Total Square (Post) (cm) 0 -Area of Debridement (cm) - Length 0 -Area of Debridement (cm) - Width 0 -Total Square (Area) (cm) 0 -Wound/Ulcer Outcome Not Healed Healed- Epithelialized 1. L Lateral foot POST-OP -Time 15:01 15:43 -Correct Patient Yes Yes -Correct Side, Site, Position Yes Yes -Correct Procedure Yes Yes -Procedure Performed Yes Yes -Type of Procedure Debridement Debridement -Clinical Debridement Subcutaneous Muscle / Fascia -Tissue Removed Subcutaneous Muscle,Fascia -Post Debridement (cm) - Length 4.5 4.5 -Post Debridement (cm) - Width 1.6 1.5 -Post Debridement (cm) - Depth 1.7 1.5 -Total Square (Post) (cm) 7.20 6.75 -Area of Debridement (cm) - Length 4.5 4.5 -Area of Debridement (cm) - Width 1.6 1.5 -Total Square (Area) (cm) 7.20 6.75 -Tunneling No No -Undermining/Tunneling No No -Circular Undermining No No -Wound/Ulcer Outcome Not Healed Not Healed -Ulcer Cleansing Rinsed/ Rinsed/ Irrigated with Irrigated with Saline Saline -Foul Odor after Cleansing No No -Bioengineered Tissue No Yes -Type of Bioengineered Tissue Epicord -Expiration Date 02/17/28 -Product Lot Number [id number] -Percent Used 100 -Lot number of Saline Used [id number] -Bleeding Controlled with Pressure Pressure -Treatment Response Procedure Procedure Tolerated Well Tolerated Well -Offloading Yes Yes -Type of Offloading Surgical Shoe Surgical Shoe -Debridement - Subq, 1st 20sq cm Yes No -Debridement - Muscle / Fascia, 1st No 20sq cm -Apply Skin Sub - 1st 25 sq cm - Legs 1 -Epicord (per sq cm) 6 Pain Scale: 0-10 Numeric Is Patient Pain Free? Yes Yes WC - Nurse 3 - General Ulcer D/C NN Start: 08/19/23 14:50 Freq: Status: Active Protocol: Activity Type Activity Date Activity User E-sign Co-sign Detail Recorded Client Recorded Date Recorded By Document 08/19/23 15:19 DL [id number] 08/19/23 15:20 DL Document 08/26/23 15:53 KW l 08/26/23 15:54 KW 08/19/23 08/26/23 15:19 15:53 Wound Care Center Nurse 3 #2 LT HALLUX -Ulcer Cleansing Rinsed/ Irrigated with Saline -Foul Odor after Cleansing No -Other Dressing betadine -Primary Dressing Covered/Secured with Dry Gauze & Roll Gauze, Secured with Tape 1. L Lateral foot POST-OP -Ulcer Cleansing Soap and Water -Foul Odor after Cleansing No -Negative Pressure Wound Therapy Continue -Setting (mmHg) 125 -Negative Pressure is Continuous -Primary Dressing Covered/Secured with Dry Gauze & Roll Gauze, Secured with Tape -NPWT Application Charge NPWT & Debridement (nc ) Left -Tubular Bandage Double Layer -Size of Tubigrip Used Size D -Size D ($) 2 suzanne -Tubular Bandage Single Layer -Size of Tubigrip Used Size E -Size E ($) 2 Treatment Response Procedure Tolerated Well Pain Scale: 0-10 Numeric Is Patient Pain Free? Yes Yes WC - Visit Discharge Discharge Condition Stable Stable Ambulatory Status Wheelchair Wheelchair Transportation Private Auto Private Auto Medication Reconcilliation completed & No provided to patient/care provider Clinical Summary of Care Provided Yes Facility Type Nursing Home Care Facility Orders Sent Yes Assessment/Plan Assessment/Plan (1) Non-pressure chronic ulcer of other part of left foot with fat layer exposed: CODE(S): L97.522 - Non-pressure chronic ulcer of other part of left foot with fat layer exposed PLAN: Patient was examined and evaluated. All findings were discussed with the patient. All questions were answered to the patient's satisfaction. Excision debridement down to and including subcutaneous tissue of the left lateral full-thickness ulceration with a number 3 mm dermal curette without incident. Predebridement measurement was 4.1 x 1.3 x 1.2. Postdebridement measurement is 4.5 x 1.5 x 1.5 cm. EpiCord 2.0 x 3.0 cm graft was applied to the left full-thickness ulceration with 100% use. First application. The graft site was free and clear of any infection. The wound/skin graft substitute was dressed with nonadherent bandage secured in place with Steri-Strips followed by bolster dressing as well as a double layer Tubigrip. Follow-up at the wound care center with Dr. Guaman in 1 week. (2) Other specified peripheral vascular diseases: CODE(S): I73.89 - Other specified peripheral vascular diseases
[2023-09-02 16:19] VITALS: BP 135/77; PULSE 89; RESP 18; TEMP 35.7; BMI 23.6
--- NOTE | 2023-09-02 17:38 | PN.PCM_ITS ---
History of Present Illness Date of Service: 09/02/23 Chief Complaint: Left foot wound History of Wound: Left foot wound secondary to surgery from outside provider Subjective Subjective Mr. Oliva is a 73-year-old male presenting to wound care center today for follow-up evaluation of the full-thickness ulceration to the left lateral foot. Patient has kept his dressing clean dry and intact. He presents again today for amniotic skin graft substitute. He admits swelling has been improving since being discharged from the [facility] facility. Denies trauma. Denies constitutional symptoms. No other pedal complaints at this time. Objective Data Objective Data Vital Signs: Vital Signs Temp Pulse Resp BP O2 Del Method O2 Flow Rate 96.3 F L 89 18 135/77 H Room Air 3 09/02/23 16:19 09/02/23 16:19 09/02/23 16:19 09/02/23 16:19 08/19/23 14:50 08/17/23 00:41 Oxygen Flow Rate (L/min) 3 Oxygen Delivery Method Room Air Weight: 72.575 kg Body Mass Index (BMI) 23.6 Physical Exam Narrative Vascular: PT, peroneal arteries are biphasic on Doppler. AT and DP are monophasic on Doppler. CFT is 4 seconds. Nonpitting edema appreciated to the left lower extremity. +1 pitting edema appreciated to the right lower extremity, improving. Skin temperature gradient is warm to cool from proximal ankle to distal digits bilateral. Neurological: Light touch intact. Protective sensation is intact. Patient response to painful stimuli. Dermatological: Full-thickness ulceration measuring 4.0 x 1.0 x 0.9 cm. No malodor or probe to bone. Excision debridement down to and including subcutaneous tissue of the left lateral full-thickness ulceration with a number 3 mm dermal curette without incident. Predebridement measurement was 4.0 x 0.9 x 0.5. Postdebridement measurement is 4.3 x 1.0 x 0.9 cm. EpiCord 2.0 x 3.0 cm graft was applied to the left full-thickness ulceration wi th 100% use. Second application. The graft site was free and clear of any infection. The wound/skin graft substitute was dressed with nonadherent bandage secured in place with Steri-Strips followed by bolster dressing as well as a double layer Tubigrip. Musculoskeletal: No palpatory tenderness appreciated to left lower extremity incision or skin graft. No pain with calf compression. Debridement Note Debridement Note Debridement Free Text: Excision debridement down to and including subcutaneous tissue of the left lateral full-thickness ulceration with a number 3 mm dermal curette without incident. Predebridement measurement was 4.0 x 0.9 x 0.5. Postdebridement measurement is 4.3 x 1.0 x 0.9 cm. EpiCord 2.0 x 3.0 cm graft was applied to the left full-thickness ulceration with 100% use. Second application. The graft site was free and clear of any infection. The wound/skin graft substitute was dressed with nonadherent bandage secured in place with Steri-Strips followed by bolster dressing as well as a double layer Tubigrip. Post-Debridement Measurements and Additional Note: Post-Debridement Measurements/Treatment - Nurse 1 - General Ulcer Assessment Start: 08/19/23 14:50 Freq: Status: Active Protocol: .LOWEXMari Activity Type Activity Date Activity User E-sign Co-sign Detail Recorded Client Recorded Date Recorded By Document 08/19/23 14:50 KW 0000 08/19/23 14:56 KW Document 08/26/23 15:07 DL [email or web address] 08/26/23 15:19 DL Document 09/02/23 16:19 RB WOUND 09/02/23 16:23 RB 08/19/23 08/26/23 09/02/23 14:50 15:07 16:19 - Today's Visit Information Type of service Follow-up Visit Follow-up Visit Follow-up Visit (Physician/PROGRAMMING DEVELOPMENT PROJECT MANAGER (Physician/PROGRAMMING DEVELOPMENT PROJECT MANAGER (Physician/PROGRAMMING DEVELOPMENT PROJECT MANAGER ) ) ) Arrival Mode Wheelchair Wheelchair Ambulatory Transfer Assistance Manual None Transfer Assist (Other) x1 Accompanied by Patient Identification Verified (Name & Yes Yes Yes ) Patient Requires Transmission-Based No No Precautions Height and Weight Body Mass Index (BMI) 23.6 23.6 23.6 BMI Classification Normal Normal Normal Vital Signs Temperature (97.8 F-99.1 F) 96.7 F L 99.2 F H 96.3 F L Temperature Source Temporal Temporal Temporal Pulse Rate (60-100) 89 93 89 Pulse Location Monitor Monitor Monitor Respiratory Rate (12-18) 18 20 H 18 Respiratory rate source Observation Observation Oxygen Delivery Method Room Air Blood Pressure (90/60-120/80) 144/81 H 158/90 H 135/77 H Blood Pressure Mean (mm Hg) 102 112 96 Source Monitor Monitor Monitor Position Semi-Fowlers Semi-Fowlers Blood Pressure Location Left Arm Left Arm History Since Last Visit- (Skip if this is Patient's initial visit) Have you changed medications since your No No No last visit? Any new allergies or adverse reactions No No No Had a fall/change in ADL's that may No No No increase risk of falls Signs or symptoms of abuse and/or No No No neglect since last visit Have you been in the hospital since your No No No last visit? Has dressing in place as prescribed Yes Yes Yes Has compression in place as prescribed Yes Yes Yes Has offloadiing in place as prescribed N/A Yes No Experienced any changes in pain level or No No No management Left Footwear Slipper Right Footwear Slipper Pain Scale: 0-10 Numeric Is Patient Pain Free? Yes Yes No LLE -Description Sharp -Intensity 5 -Duration (hours) Acute -Pain Behavior Irritability, Withdrawal from Touch -Pain Aggravating Factors ADL's, Debridement -Alleviating Factors/Interventions Medication -Effectiveness of Alleviating Factor/ Moderately Intervention effective WC - Nurse 1 - General Ulcer Measurement Start: 08/19/23 14:50 Freq: Status: Active Protocol: Activity Type Activity Date Activity User E-sign Co-sign Detail Recorded Client Recorded Date Recorded By Document 08/19/23 14:50 KW 0000 08/19/23 14:56 KW Document 08/26/23 15:07 DL [email or web address] 08/26/23 15:19 DL Document 09/02/23 16:19 RB WOUND 09/02/23 16:23 RB 08/19/23 08/26/23 09/02/23 14:50 15:07 16:19 Wound Center Nurse 1 #2 LT HALLUX -Combined with other wound No -Current Size (cm) - Length 1.7 0 -Current Size (cm) - Width 2.3 0 -Current Size (cm) - Depth 0.1 -Total Square Cm 3.91 0 -Photo Taken No Yes -Epithelialization Small 1-33% -Tunneling No -Undermining/Tunneling No -Circular Undermining No -Exudate Amt Small None Present -Exudate Type Serosanguineous Serosanguineous -Wound Margin Flat & Intact Flat & Intact -Granulation Amt Large (67-100%) Large (67-100%) -Granulation Quality Red Pajaros,Red -Slough/Fibrin Yes -Necrosis Amt Small (1-33%) None Present (0 %) -Necrotic Tissue Type Adherent Slough -Structure Exposed N/A N/A -Texture (Terri-wound Skin Appearance) Assessed Scarring -Moisture (Terri-wound Skin Appearance) Assessed, No Abnormality, Maceration Maceration -Color (Terri-wound Skin Appearance) Assessed No Abnormality -Temperature (Terri-wound Skin No Abnormality No Abnormality Appearance) (Pt Warm) (Pt Warm) -Tenderness on Palpation (Terri-wound No Skin Appearance) -Ulcer Cleansing Wound Cleanser Soap and Water -Foul Odor after Cleansing No No -Anesthetic Used 4% Lidocaine 5% Lidocaine Solution Gel 1. L Lateral foot POST-OP -Combined with other wound No No -Current Size (cm) - Length 4 3.5 1.5 -Current Size (cm) - Width 1.5 1.5 4 -Current Size (cm) - Depth 1.0 1.3 0.8 -Total Square Cm 6.0 5.25 6.0 -Photo Taken No Yes -Epithelialization Small 1-33% -Tunneling No No -Undermining/Tunneling No No -Circular Undermining No No -Exudate Amt Medium Large Large -Exudate Type Serosanguineous Serosanguineous Serosanguineous -Wound Margin Flat & Intact Distinct, Thickened & Outline Rolled Under Attached -Granulation Amt Medium (34-66%) Medium (34-66%) Medium (34-66%) -Granulation Quality Red Red Pajaros -Slough/Fibrin Yes Yes -Necrosis Amt Small (1-33%) Medium (34-66%) Medium (34-66%) -Necrotic Tissue Type Adherent Slough Adherent Slough Adherent Slough -Structure Exposed N/A N/A N/A -Texture (Terri-wound Skin Appearance) Assessed, Scarring Assessed Localized Edema -Moisture (Terri-wound Skin Appearance) Assessed,Dry/ Maceration Maceration Scaly -Color (Terri-wound Skin Appearance) Assessed No Abnormality Assessed -Temperature (Terri-wound Skin No Abnormality No Abnormality No Abnormality Appearance) (Pt Warm) (Pt Warm) (Pt Warm) -Tenderness on Palpation (Terri-wound No No Skin Appearance) -Ulcer Cleansing Wound Cleanser Soap and Water Wound Cleanser -Foul Odor after Cleansing No No No -Anesthetic Used 4% Lidocaine 5% Lidocaine 5% Lidocaine Solution Gel Gel Lower Limb Edema Present Yes Right Calf (cm) 35.5 Right Ankle (cm) 26.5 Left Calf (cm) 36.5 Left Ankle (cm) 22.7 WC - Nurse 2 - General Ulcer CM Notes Start: 08/19/23 14:50 Freq: Status: Active Protocol: Activity Type Activity Date Activity User E-sign Co-sign Detail Recorded Client Recorded Date Recorded By Document 08/19/23 15:01 JF 0000 08/19/23 15:05 JF Document 08/26/23 15:42 JF 000 08/26/23 15:45 JF Edit Result 08/26/23 15:42 JF (1) 000 08/26/23 15:47 JF Document 09/02/23 16:28 GM wc 09/02/23 16:34 GM (1) 1. L Lateral foot POST-OP - Expiration Date => 02/17/28 - Product Lot Number => [id number] - Percent Used => 100 - Lot number of Saline Used => [id number] 08/19/23 08/26/23 09/02/23 15:01 15:42 16:28 Wound Center Nurse 2 #2 LT HALLUX -Correct Patient No No -Correct Side, Site, Position No No -Correct Procedure No No -Procedure Performed No No -Post Debridement (cm) - Length 0 -Post Debridement (cm) - Width 0 -Post Debridement (cm) - Depth 0 -Total Square (Post) (cm) 0 -Area of Debridement (cm) - Length 0 -Area of Debridement (cm) - Width 0 -Total Square (Area) (cm) 0 -Wound/Ulcer Outcome Not Healed Healed- Epithelialized 1. L Lateral foot POST-OP -Time 15:01 15:43 16:31 -Correct Patient Yes Yes Yes -Correct Side, Site, Position Yes Yes Yes -Correct Procedure Yes Yes Yes -Procedure Performed Yes Yes Yes -Type of Procedure Debridement Debridement Debridement -Clinical Debridement Subcutaneous Muscle / Fascia Muscle / Fascia -Tissue Removed Subcutaneous Muscle,Fascia Muscle -Post Debridement (cm) - Length 4.5 4.5 4.0 -Post Debridement (cm) - Width 1.6 1.5 1.1 -Post Debridement (cm) - Depth 1.7 1.5 0.9 -Total Square (Post) (cm) 7.20 6.75 4.40 -Area of Debridement (cm) - Length 4.5 4.5 4.0 -Area of Debridement (cm) - Width 1.6 1.5 1.1 -Total Square (Area) (cm) 7.20 6.75 4.40 -Tunneling No No No -Undermining/Tunneling No No No -Circular Undermining No No No -Wound/Ulcer Outcome Not Healed Not Healed Not Healed -Ulcer Cleansing Rinsed/ Rinsed/ Not Cleansed Irrigated with Irrigated with Saline Saline -Foul Odor after Cleansing No No No -Bioengineered Tissue No Yes Yes -Type of Bioengineered Tissue Epicord Epicord -Expiration Date 02/17/28 02/17/28 -Product Lot Number [id number] -Percent Used 100 100 -Lot number of Saline Used [id number] -Bleeding Controlled with Pressure Pressure Pressure -Treatment Response Procedure Procedure Procedure Tolerated Well Tolerated Well Tolerated Well -Offloading Yes Yes -Type of Offloading Surgical Shoe Surgical Shoe -Debridement - Subq, 1st 20sq cm Yes No -Debridement - Muscle / Fascia, 1st No Yes 20sq cm -Apply Skin Sub - 1st 25 sq cm - Legs 1 1 -Epicord (per sq cm) 6 6 Pain Scale: 0-10 Numeric Is Patient Pain Free? Yes Yes Yes WC - Nurse 3 - General Ulcer D/C NN Start: 08/19/23 14:50 Freq: Status: Active Protocol: Activity Type Activity Date Activity User E-sign Co-sign Detail Recorded Client Recorded Date Recorded By Document 08/19/23 15:19 DL [id number] 08/19/23 15:20 DL Document 08/26/23 15:53 KW l 08/26/23 15:54 KW Document 09/02/23 16:44 DL [email or web address] 09/02/23 16:44 DL 08/19/23 08/26/23 09/02/23 15:19 15:53 16:44 Wound Care Center Nurse 3 #2 LT HALLUX -Ulcer Cleansing Rinsed/ Irrigated with Saline -Foul Odor after Cleansing No -Other Dressing betadine -Primary Dressing Covered/Secured with Dry Gauze & Roll Gauze, Secured with Tape 1. L Lateral foot POST-OP -Ulcer Cleansing Soap and Water -Foul Odor after Cleansing No No -Negative Pressure Wound Therapy Continue -Setting (mmHg) 125 -Negative Pressure is Continuous -Other Dressing epicord -Primary Dressing Covered/Secured with Dry Gauze & Dry Gauze & Roll Gauze, Roll Gauze, Secured with Secured with Tape Tape -Other Covering tubigrip -NPWT Application Charge NPWT & Debridement (nc ) Left -Tubular Bandage Double Layer -Size of Tubigrip Used Size D -Size D ($) 2 suzanne -Tubular Bandage Single Layer -Size of Tubigrip Used Size E -Size E ($) 2 Treatment Response Procedure Procedure Tolerated Well Tolerated Well Pain Scale: 0-10 Numeric Is Patient Pain Free? Yes Yes Yes WC - Visit Discharge Discharge Condition Stable Stable Stable Ambulatory Status Wheelchair Wheelchair Wheelchair Transportation Private Auto Private Auto Private Auto Medication Reconcilliation completed & No provided to patient/care provider Clinical Summary of Care Provided Yes Facility Type Delivery Rn [facility] Orders Sent Yes Yes Assessment/Plan Assessment/Plan (1) Non-pressure chronic ulcer of other part of left foot with fat layer exposed: CODE(S): L97.522 - Non-pressure chronic ulcer of other part of left foot with fat layer exposed PLAN: Patient was examined and evaluated. All findings were discussed with the patient. All questions were answered to the patient's satisfaction. Excision debridement down to and including subcutaneous tissue of the left lateral full-thickness ulceration with a number 3 mm dermal curette without incident. Predebridement measurement was 4.0 x 0.9 x 0.5. Postdebridement measurement is 4.3 x 1.0 x 0.9 cm. EpiCord 2.0 x 3.0 cm graft was applied to the left full-thickness ulceration with 100% use. Second application. The graft site was free and clear of any infection. The wound/skin graft substitute was dressed with nonadherent bandage secured in place with Steri-Strips followed by bolster dressing as well as a double layer Tubigrip. Follow-up at the wound care center with Dr. Guaman in 1 week. (2) Other specified peripheral vascular diseases: CODE(S): I73.89 - Other specified peripheral vascular diseases
[2023-09-09 15:08] VITALS: BP 120/70; PULSE 91; RESP 16; TEMP 36.2; BMI 23.6
--- NOTE | 2023-09-09 16:32 | PN.PCM_ITS ---
History of Present Illness Date of Service: 09/09/23 Chief Complaint: Left foot wound History of Wound: Left foot wound secondary to surgery from outside provider Subjective Subjective Mr. Oliva is a 73-year-old male presenting to wound care center today for follow-up evaluation of full-thickness ulceration to the left foot. He has been compliant with keeping his graft clean dry and intact. He denies any drainage. His swelling has improved. He is smoking only 3 to 4 cigarettes a day which is an improvement. He is not diabetic. Denies trauma. Denies constitutional symptoms. Other pedal complaints at this time. Objective Data Objective Data Vital Signs: Vital Signs Temp Pulse Resp BP O2 Del Method O2 Flow Rate 97.1 F L 91 16 120/70 Room Air 3 09/09/23 15:08 09/09/23 15:08 09/09/23 15:08 09/09/23 15:08 09/09/23 15:08 08/17/23 00:41 Oxygen Flow Rate (L/min) 3 Oxygen Delivery Method Room Air Weight: 72.575 kg Body Mass Index (BMI) 23.6 Physical Exam Narrative Vascular: PT, peroneal arteries are biphasic on Doppler. AT and DP are monophasic on Doppler. CFT is 4 seconds. Nonpitting edema appreciated to the left lower extremity. +1 pitting edema appreciated to the right lower extremity, improving. Skin temperature gradient is warm to cool from proximal ankle to distal digits bilateral. Neurological: Light touch intact. Protective sensation is intact. Patient response to painful stimuli. Dermatological: Full-thickness ulceration measuring 3.2 x 1.0 x 1.2 cm. No malodor or probe to bone. Excision debridement down to and including subcutaneous tissue of the left lateral full-thickness ulceration with a number 3 mm dermal curette without incident. Predebridement measurement was 3.0 x 0.9 x 0.8. Postdebridement measurement is 3.2 x 1.0 x 1.2 cm. EpiCord 2.0 x 3.0 cm graft was applied to the left full-thickness ulceration with 100% use. Third application. The graft site was free and clear of any infection. The wound/skin graft substitute was dressed with nonadherent bandage secured in place with Steri-Strips followed by bolster dressing as well as a double layer Tubigrip. Musculoskeletal: No palpatory tenderness appreciated to left lower extremity incision or skin graft. No pain with calf Debridement Note Debridement Note Debridement Free Text: Excision debridement down to and including subcutaneous tissue of the left lateral full-thickness ulceration with a number 3 mm dermal curette without incident. Predebridement measurement was 3.0 x 0.9 x 0.8. Postdebridement measurement is 3.2 x 1.0 x 1.2 cm. EpiCord 2.0 x 3.0 cm graft was applied to the left full-thickness ulceration with 100% use. Third application. The graft site was free and clear of any infection. The wound/skin graft substitute was dressed with nonadherent bandage secured in place with Steri-Strips followed by bolster dressing as well as a double layer Tubigrip. Post-Debridement Measurements and Additional Note: Post-Debridement Measurements/Treatment - Nurse 1 - General Ulcer Assessment Start: 08/19/23 14:50 Freq: Status: Active Protocol: [email or web address] Activity Type Activity Date Activity User E-sign Co-sign Detail Recorded Client Recorded Date Recorded By Document 08/19/23 14:50 KW 0000 08/19/23 14:56 KW Document 08/26/23 15:07 DL [id number] 08/26/23 15:19 DL Document 09/02/23 16:19 RB WOUND 09/02/23 16:23 RB Document 09/09/23 15:08 CP 09/09/23 15:14 CP 08/19/23 08/26/23 09/02/23 14:50 15:07 16:19 - Today's Visit Information Type of service Follow-up Visit Follow-up Visit Follow-up Visit (Physician/COMMAND CENTER ANALYST (Physician/COMMAND CENTER ANALYST (Physician/COMMAND CENTER ANALYST ) ) ) Arrival Mode Wheelchair Wheelchair Ambulatory Transfer Assistance Manual None Transfer Assist (Other) x1 Accompanied by Patient Identification Verified (Name & Yes Yes Yes ) Patient Requires Transmission-Based No No Precautions Height and Weight Body Mass Index (BMI) 23.6 23.6 23.6 BMI Classification Normal Normal Normal Vital Signs Temperature (97.8 F-99.1 F) 96.7 F L 99.2 F H 96.3 F L Temperature Source Temporal Temporal Temporal Pulse Rate (60-100) 89 93 89 Pulse Location Monitor Monitor Monitor Respiratory Rate (12-18) 18 20 H 18 Respiratory rate source Observation Observation Oxygen Delivery Method Room Air Blood Pressure (90/60-120/80) 144/81 H 158/90 H 135/77 H Blood Pressure Mean (mm Hg) 102 112 96 Source Monitor Monitor Monitor Position Semi-Fowlers Semi-Fowlers Blood Pressure Location Left Arm Left Arm History Since Last Visit- (Skip if this is Patient's initial visit) Have you changed medications since your No No No last visit? Any new allergies or adverse reactions No No No Had a fall/change in ADL's that may No No No increase risk of falls Signs or symptoms of abuse and/or No No No neglect since last visit Have you been in the hospital since your No No No last visit? Has dressing in place as prescribed Yes Yes Yes Has compression in place as prescribed Yes Yes Yes Has offloadiing in place as prescribed N/A Yes No Experienced any changes in pain level or No No No management Left Footwear Slipper Right Footwear Slipper Pain Scale: 0-10 Numeric Is Patient Pain Free? Yes Yes No LLE -Description Sharp -Intensity 5 -Duration (hours) Acute -Pain Behavior Irritability, Withdrawal from Touch -Pain Aggravating Factors ADL's, Debridement -Alleviating Factors/Interventions Medication -Effectiveness of Alleviating Factor/ Moderately Intervention effective 09/09/23 15:08 WC - Today's Visit Information Type of service Follow-up Visit (Physician/COMMAND CENTER ANALYST ) Arrival Mode Wheelchair Transfer Assistance Transfer Assist (Other) Accompanied by Patient Identification Verified (Name & Yes ) Patient Requires Transmission-Based Precautions Height and Weight Body Mass Index (BMI) 23.6 BMI Classification Normal Vital Signs Temperature (97.8 F-99.1 F) 97.1 F L Temperature Source Temporal Pulse Rate (60-100) 91 Pulse Location Monitor Respiratory Rate (12-18) 16 Respiratory rate source Observation Oxygen Delivery Method Room Air Blood Pressure (90/60-120/80) 120/70 Blood Pressure Mean (mm Hg) 86 Source Monitor Position Semi-Fowlers Blood Pressure Location Left Arm History Since Last Visit- (Skip if this is Patient's initial visit) Have you changed medications since your No last visit? Any new allergies or adverse reactions No Had a fall/change in ADL's that may No increase risk of falls Signs or symptoms of abuse and/or No neglect since last visit Have you been in the hospital since your No last visit? Has dressing in place as prescribed Yes Has compression in place as prescribed Yes Has offloadiing in place as prescribed N/A Experienced any changes in pain level or No management Left Footwear Surgical Shoe with pressure relief insole Right Footwear Regular Shoe Pain Scale: 0-10 Numeric Is Patient Pain Free? Yes LLE -Description -Intensity -Duration (hours) -Pain Behavior -Pain Aggravating Factors -Alleviating Factors/Interventions -Effectiveness of Alleviating Factor/ Intervention WC - Nurse 1 - General Ulcer Measurement Start: 08/19/23 14:50 Freq: Status: Active Protocol: Activity Type Activity Date Activity User E-sign Co-sign Detail Recorded Client Recorded Date Recorded By Document 08/19/23 14:50 KW 0000 08/19/23 14:56 KW Document 08/26/23 15:07 DL [email or web address] 08/26/23 15:19 DL Document 09/02/23 16:19 RB WOUND 09/02/23 16:23 RB Document 09/09/23 15:08 CP 09/09/23 15:14 CP 08/19/23 08/26/23 09/02/23 14:50 15:07 16:19 Wound Center Nurse 1 #2 LT HALLUX -Combined with other wound No -Current Size (cm) - Length 1.7 0 -Current Size (cm) - Width 2.3 0 -Current Size (cm) - Depth 0.1 -Total Square Cm 3.91 0 -Photo Taken No Yes -Epithelialization Small 1-33% -Tunneling No -Undermining/Tunneling No -Circular Undermining No -Exudate Amt Small None Present -Exudate Type Serosanguineous Serosanguineous -Wound Margin Flat & Intact Flat & Intact -Granulation Amt Large (67-100%) Large (67-100%) -Granulation Quality Red Talala,Red -Slough/Fibrin Yes -Necrosis Amt Small (1-33%) None Present (0 %) -Necrotic Tissue Type Adherent Slough -Structure Exposed N/A N/A -Texture (Terri-wound Skin Appearance) Assessed Scarring -Moisture (Terri-wound Skin Appearance) Assessed, No Abnormality, Maceration Maceration -Color (Terri-wound Skin Appearance) Assessed No Abnormality -Temperature (Terri-wound Skin No Abnormality No Abnormality Appearance) (Pt Warm) (Pt Warm) -Tenderness on Palpation (Terri-wound No Skin Appearance) -Ulcer Cleansing Wound Cleanser Soap and Water -Foul Odor after Cleansing No No -Anesthetic Used 4% Lidocaine 5% Lidocaine Solution Gel 1. L Lateral foot POST-OP -Combined with other wound No No -Current Size (cm) - Length 4 3.5 1.5 -Current Size (cm) - Width 1.5 1.5 4 -Current Size (cm) - Depth 1.0 1.3 0.8 -Total Square Cm 6.0 5.25 6.0 -Date of Last Picture (Recall this field) -Photo Taken No Yes -Epithelialization Small 1-33% -Tunneling No No -Undermining/Tunneling No No -Circular Undermining No No -Exudate Amt Medium Large Large -Exudate Type Serosanguineous Serosanguineous Serosanguineous -Wound Margin Flat & Intact Distinct, Thickened & Outline Rolled Under Attached -Granulation Amt Medium (34-66%) Medium (34-66%) Medium (34-66%) -Granulation Quality Red Red Talala -Slough/Fibrin Yes Yes -Necrosis Amt Small (1-33%) Medium (34-66%) Medium (34-66%) -Necrotic Tissue Type Adherent Slough Adherent Slough Adherent Slough -Structure Exposed N/A N/A N/A -Texture (Terri-wound Skin Appearance) Assessed, Scarring Assessed Localized Edema -Moisture (Terri-wound Skin Appearance) Assessed,Dry/ Maceration Maceration Scaly -Color (Terri-wound Skin Appearance) Assessed No Abnormality Assessed -Temperature (Terri-wound Skin No Abnormality No Abnormality No Abnormality Appearance) (Pt Warm) (Pt Warm) (Pt Warm) -Tenderness on Palpation (Terri-wound No No Skin Appearance) -Ulcer Cleansing Wound Cleanser Soap and Water Wound Cleanser -Foul Odor after Cleansing No No No -Anesthetic Used 4% Lidocaine 5% Lidocaine 5% Lidocaine Solution Gel Gel Lower Limb Edema Present Yes Right Calf (cm) 35.5 Right Ankle (cm) 26.5 Left Calf (cm) 36.5 Left Ankle (cm) 22.7 09/09/23 15:08 Wound Center Nurse 1 #2 LT HALLUX -Combined with other wound -Current Size (cm) - Length -Current Size (cm) - Width -Current Size (cm) - Depth -Total Square Cm -Photo Taken -Epithelialization -Tunneling -Undermining/Tunneling -Circular Undermining -Exudate Amt -Exudate Type -Wound Margin -Granulation Amt -Granulation Quality -Slough/Fibrin -Necrosis Amt -Necrotic Tissue Type -Structure Exposed -Texture (Terri-wound Skin Appearance) -Moisture (Terri-wound Skin Appearance) -Color (Terri-wound Skin Appearance) -Temperature (Terri-wound Skin Appearance) -Tenderness on Palpation (Terri-wound Skin Appearance) -Ulcer Cleansing -Foul Odor after Cleansing -Anesthetic Used 1. L Lateral foot POST-OP -Combined with other wound -Current Size (cm) - Length 3 -Current Size (cm) - Width 0.8 -Current Size (cm) - Depth 0.5 -Total Square Cm 2.4 -Date of Last Picture (Recall this 09/09/23 field) -Photo Taken -Epithelialization -Tunneling -Undermining/Tunneling -Circular Undermining -Exudate Amt Medium -Exudate Type Serosanguineous -Wound Margin Distinct, Outline Attached -Granulation Amt Small (1-33%) -Granulation Quality Talala -Slough/Fibrin -Necrosis Amt Large (67-100%) -Necrotic Tissue Type Adherent Slough -Structure Exposed -Texture (Terri-wound Skin Appearance) Assessed -Moisture (Terri-wound Skin Appearance) Assessed,Dry/ Scaly -Color (Terri-wound Skin Appearance) Assessed -Temperature (Terri-wound Skin No Abnormality Appearance) (Pt Warm) -Tenderness on Palpation (Terri-wound No Skin Appearance) -Ulcer Cleansing Soap and Water -Foul Odor after Cleansing No -Anesthetic Used 5% Lidocaine Gel Lower Limb Edema Present Right Calf (cm) Right Ankle (cm) Left Calf (cm) Left Ankle (cm) WC - Nurse 2 - General Ulcer CM Notes Start: 08/19/23 14:50 Freq: Status: Active Protocol: Activity Type Activity Date Activity User E-sign Co-sign Detail Recorded Client Recorded Date Recorded By Document 08/19/23 15:01 JF 0000 08/19/23 15:05 JF Document 08/26/23 15:42 JF 000 08/26/23 15:45 JF Edit Result 08/26/23 15:42 JF (1) 000 08/26/23 15:47 JF Edit Result 08/26/23 15:42 JF (2) 0000 09/08/23 14:19 JF Document 09/02/23 16:28 [facility] 09/02/23 16:34 Document 09/09/23 15:27 JF 000 09/09/23 15:33 JF (1) 1. L Lateral foot POST-OP - Expiration Date => 02/17/28 - Product Lot Number => [id number] - Percent Used => 100 - Lot number of Saline Used => [id number] (2) 1. L Lateral foot POST-OP - Apply Skin Sub - 1st 25 sq cm - Legs 1 => - Apply Skin Sub - 1st 25 sq cm - Feet => 1 08/19/23 08/26/23 09/02/23 15:01 15:42 16:28 Wound Center Nurse 2 #2 LT HALLUX -Correct Patient No No -Correct Side, Site, Position No No -Correct Procedure No No -Procedure Performed No No -Post Debridement (cm) - Length 0 -Post Debridement (cm) - Width 0 -Post Debridement (cm) - Depth 0 -Total Square (Post) (cm) 0 -Area of Debridement (cm) - Length 0 -Area of Debridement (cm) - Width 0 -Total Square (Area) (cm) 0 -Wound/Ulcer Outcome Not Healed Healed- Epithelialized 1. L Lateral foot POST-OP -Time 15:01 15:43 16:31 -Correct Patient Yes Yes Yes -Correct Side, Site, Position Yes Yes Yes -Correct Procedure Yes Yes Yes -Procedure Performed Yes Yes Yes -Type of Procedure Debridement Debridement Debridement -Clinical Debridement Subcutaneous Muscle / Fascia Muscle / Fascia -Tissue Removed Subcutaneous Muscle,Fascia Muscle -Post Debridement (cm) - Length 4.5 4.5 4.0 -Post Debridement (cm) - Width 1.6 1.5 1.1 -Post Debridement (cm) - Depth 1.7 1.5 0.9 -Total Square (Post) (cm) 7.20 6.75 4.40 -Area of Debridement (cm) - Length 4.5 4.5 4.0 -Area of Debridement (cm) - Width 1.6 1.5 1.1 -Total Square (Area) (cm) 7.20 6.75 4.40 -Tunneling No No No -Undermining/Tunneling No No No -Circular Undermining No No No -Wound/Ulcer Outcome Not Healed Not Healed Not Healed -Ulcer Cleansing Rinsed/ Rinsed/ Not Cleansed Irrigated with Irrigated with Saline Saline -Foul Odor after Cleansing No No No -Bioengineered Tissue No Yes Yes -Type of Bioengineered Tissue Epicord Epicord -Expiration Date 02/17/28 02/17/28 -Product Lot Number [id number] -Percent Used 100 100 -Lot number of Saline Used [id number] -Bleeding Controlled with Pressure Pressure Pressure -Treatment Response Procedure Procedure Procedure Tolerated Well Tolerated Well Tolerated Well -Offloading Yes Yes -Type of Offloading Surgical Shoe Surgical Shoe -Debridement - Subq, 1st 20sq cm Yes No -Debridement - Muscle / Fascia, 1st No Yes 20sq cm -Apply Skin Sub - 1st 25 sq cm - Legs 1 -Apply Skin Sub - 1st 25 sq cm - Feet 1 -Epicord (per sq cm) 6 6 Pain Scale: 0-10 Numeric Is Patient Pain Free? Yes Yes Yes 09/09/23 15:27 Wound Center Nurse 2 #2 LT HALLUX -Correct Patient -Correct Side, Site, Position -Correct Procedure -Procedure Performed -Post Debridement (cm) - Length -Post Debridement (cm) - Width -Post Debridement (cm) - Depth -Total Square (Post) (cm) -Area of Debridement (cm) - Length -Area of Debridement (cm) - Width -Total Square (Area) (cm) -Wound/Ulcer Outcome 1. L Lateral foot POST-OP -Time 15:27 -Correct Patient Yes -Correct Side, Site, Position Yes -Correct Procedure Yes -Procedure Performed Yes -Type of Procedure Debridement -Clinical Debridement Muscle / Fascia -Tissue Removed Fascia -Post Debridement (cm) - Length 3.2 -Post Debridement (cm) - Width 1.0 -Post Debridement (cm) - Depth 1.2 -Total Square (Post) (cm) 3.20 -Area of Debridement (cm) - Length 3.2 -Area of Debridement (cm) - Width 1.0 -Total Square (Area) (cm) 3.20 -Tunneling No -Undermining/Tunneling No -Circular Undermining No -Wound/Ulcer Outcome Not Healed -Ulcer Cleansing Rinsed/ Irrigated with Saline -Foul Odor after Cleansing No -Bioengineered Tissue Yes -Type of Bioengineered Tissue Epicord -Expiration Date 02/17/28 -Product Lot Number [id number] -Percent Used 100 -Lot number of Saline Used [id number] -Bleeding Controlled with Pressure -Treatment Response Procedure Tolerated Well -Offloading No -Type of Offloading -Debridement - Subq, 1st 20sq cm No -Debridement - Muscle / Fascia, 1st No 20sq cm -Apply Skin Sub - 1st 25 sq cm - Legs -Apply Skin Sub - 1st 25 sq cm - Feet 1 -Epicord (per sq cm) 6 Pain Scale: 0-10 Numeric Is Patient Pain Free? Yes WC - Nurse 3 - General Ulcer D/C NN Start: 08/19/23 14:50 Freq: Status: Active Protocol: Activity Type Activity Date Activity User E-sign Co-sign Detail Recorded Client Recorded Date Recorded By Document 08/19/23 15:19 DL [id number] 08/19/23 15:20 DL Document 08/26/23 15:53 KW l 08/26/23 15:54 KW Document 09/02/23 16:44 DL [email or web address] 09/02/23 16:44 DL Document 09/09/23 15:38 CP 09/09/23 15:40 CP 08/19/23 08/26/23 09/02/23 15:19 15:53 16:44 Wound Care Center Nurse 3 #2 LT HALLUX -Ulcer Cleansing Rinsed/ Irrigated with Saline -Foul Odor after Cleansing No -Other Dressing betadine -Primary Dressing Covered/Secured with Dry Gauze & Roll Gauze, Secured with Tape 1. L Lateral foot POST-OP -Ulcer Cleansing Soap and Water -Foul Odor after Cleansing No No -Negative Pressure Wound Therapy Continue -Setting (mmHg) 125 -Negative Pressure is Continuous -Other Dressing epicord -Primary Dressing Covered/Secured with Dry Gauze & Dry Gauze & Roll Gauze, Roll Gauze, Secured with Secured with Tape Tape -Other Covering tubigrip -NPWT Application Charge NPWT & Debridement (nc ) Left -Tubular Bandage Double Layer -Size of Tubigrip Used Size D -Size D ($) 2 suzanne -Tubular Bandage Single Layer -Size of Tubigrip Used Size E -Size E ($) 2 Treatment Response Procedure Procedure Tolerated Well Tolerated Well Pain Scale: 0-10 Numeric Is Patient Pain Free? Yes Yes Yes WC - Visit Discharge Discharge Condition Stable Stable Stable Ambulatory Status Wheelchair Wheelchair Wheelchair Transportation Private Auto Private Auto Private Auto Medication Reconcilliation completed & No provided to patient/care provider Clinical Summary of Care Provided Yes [facility] Orders Sent Yes Yes 09/09/23 15:38 Wound Care Center Nurse 3 #2 LT HALLUX -Ulcer Cleansing -Foul Odor after Cleansing -Other Dressing -Primary Dressing Covered/Secured with 1. L Lateral foot POST-OP -Ulcer Cleansing -Foul Odor after Cleansing -Negative Pressure Wound Therapy -Setting (mmHg) -Negative Pressure is -Other Dressing -Primary Dressing Covered/Secured with Dry Gauze & Roll Gauze, Secured with Tape -Other Covering -NPWT Application Charge Left -Tubular Bandage Double Layer -Size of Tubigrip Used Size D -Size D ($) 2 suzanne -Tubular Bandage -Size of Tubigrip Used -Size E ($) Treatment Response Procedure Tolerated Well Pain Scale: 0-10 Numeric Is Patient Pain Free? Yes WC - Visit Discharge Discharge Condition Stable Ambulatory Status Wheelchair Transportation Private Auto Medication Reconcilliation completed & provided to patient/care provider Clinical Summary of Care Provided Yes Facility Type Orders Sent Assessment/Plan Assessment/Plan (1) Non-pressure chronic ulcer of other part of left foot with fat layer exposed: CODE(S): L97.522 - Non-pressure chronic ulcer of other part of left foot with fat layer exposed PLAN: Patient was examined and evaluated. All findings were discussed with the patient. All questions were answered to the patient's satisfaction. Excision debridement down to and including subcutaneous tissue of the left lateral full-thickness ulceration with a number 3 mm dermal curette without incident. Predebridement measurement was 3.0 x 0.9 x 0.8. Postdebridement measurement is 3.2 x 1.0 x 1.2 cm. EpiCord 2.0 x 3.0 cm graft was applied to the left full-thickness ulceration with 100% use. Third application. The graft site was free and clear of any infection. The wound/skin graft substitute was dressed with nonadherent bandage secured in place with Steri-Strips followed by bolster dressing as well as a double layer Tubigrip. Will begin authorization for a snap VAC to be placed in the wound care center. Follow-up at the wound care center with Dr. Guaman in 1 week. (2) Other specified peripheral vascular diseases: CODE(S): I73.89 - Other specified peripheral vascular diseases
--- NOTE | 2023-09-16 11:28 | WC ---
PHOTO 09/09/23 LT LATERAL FOOT
[2023-09-16 15:27] VITALS: BP 105/60; PULSE 80; RESP 18; TEMP 36; BMI 23.6
--- NOTE | 2023-09-16 15:41 | PN.PCM_ITS ---
History of Present Illness Date of Service: 09/16/23 Chief Complaint: Left foot wound History of Wound: Left foot wound secondary to surgery from outside provider Subjective Subjective Mr. Oliva is a 73-year-old male presented wound care center today for follow-up evaluation of full-thickness wound to the left foot. He has kept his dressing clean dry and intact. He admits only smoking 5 cigarettes/day. Swelling is under control. He is compliant with weightbearing. Denies trauma. Denies constitutional symptoms. No other pedal complaints at this time. Objective Data Objective Data Vital Signs: Vital Signs Temp Pulse Resp BP O2 Del Method O2 Flow Rate 96.8 F L 80 18 105/60 Room Air 3 09/16/23 15:27 09/16/23 15:27 09/16/23 15:27 09/16/23 15:27 09/16/23 15:27 08/17/23 00:41 Oxygen Flow Rate (L/min) 3 Oxygen Delivery Method Room Air Weight: 72.575 kg Body Mass Index (BMI) 23.6 Physical Exam Narrative Vascular: PT, peroneal arteries are biphasic on Doppler. AT and DP are monophasic on Doppler. CFT is 4 seconds. Nonpitting edema appreciated to the left lower extremity. +1 pitting edema appreciated to the right lower extremity, improving. Skin temperature gradient is warm to cool from proximal ankle to distal digits bilateral. Neurological: Light touch intact. Protective sensation is intact. Patient response to painful stimuli. Dermatological: Full-thickness ulceration measuring 2.6 x 0.8 x 1.1 cm. No malodor or probe to bone. Excisional debridement down to and including subcutaneous tissue of the left lateral full-thickness ulceration with a number 3 mm dermal curette without incident. Predebridement measurement was 2.4 x 0.7 x 0.7. Postdebridement measurement is 2.6 x 0.8 x 1.1 cm. EpiCord 2.0 x 3.0 cm graft was applied to the left full-thickness ulceration with 100% use. 4th application. The graft site was free and clear of any inf ection. The wound/skin graft substitute was dressed with nonadherent bandage secured in place with Steri-Strips followed by bolster dressing as well as a double layer Tubigrip. Musculoskeletal: No palpatory tenderness appreciated to left lower extremity incision or skin graft. No pain with calf compression Debridement Note Debridement Note Debridement Free Text: Excisional debridement down to and including subcutaneous tissue of the left lateral full-thickness ulceration with a number 3 mm dermal curette without incident. Predebridement measurement was 2.4 x 0.7 x 0.7. Postdebridement measurement is 2.6 x 0.8 x 1.1 cm. EpiCord 2.0 x 3.0 cm graft was applied to the left full-thickness ulceration w ith 100% use. 4th application. The graft site was free and clear of any infection. The wound/skin graft substitute was dressed with nonadherent bandage secured in place with Steri-Strips followed by bolster dressing as well as a double layer Tubigrip. Post-Debridement Measurements and Additional Note: Post-Debridement Measurements/Treatment - Nurse 1 - General Ulcer Assessment Start: 08/19/23 14:50 Freq: Status: Active Protocol: [email or web address] Activity Type Activity Date Activity User E-sign Co-sign Detail Recorded Client Recorded Date Recorded By Document 08/19/23 14:50 KW 0000 08/19/23 14:56 KW Document 08/26/23 15:07 DL [email or web address] 08/26/23 15:19 DL Document 09/02/23 16:19 RB WOUND 09/02/23 16:23 RB Document 09/09/23 15:08 CP 09/09/23 15:14 CP Document 09/16/23 15:27 CP 09/16/23 15:29 CP 08/19/23 08/26/23 09/02/23 14:50 15:07 16:19 - Today's Visit Information Type of service Follow-up Visit Follow-up Visit Follow-up Visit (Physician/REGIONAL SAFETY MANAGER (Physician/REGIONAL SAFETY MANAGER (Physician/REGIONAL SAFETY MANAGER ) ) ) Arrival Mode Wheelchair Wheelchair Ambulatory Transfer Assistance Manual None Transfer Assist (Other) x1 Accompanied by Patient Identification Verified (Name & Yes Yes Yes ) Patient Requires Transmission-Based No No Precautions Height and Weight Body Mass Index (BMI) 23.6 23.6 23.6 BMI Classification Normal Normal Normal Vital Signs Temperature (97.8 F-99.1 F) 96.7 F L 99.2 F H 96.3 F L Temperature Source Temporal Temporal Temporal Pulse Rate (60-100) 89 93 89 Pulse Location Monitor Monitor Monitor Respiratory Rate (12-18) 18 20 H 18 Respiratory rate source Observation Observation Oxygen Delivery Method Room Air Blood Pressure (90/60-120/80) 144/81 H 158/90 H 135/77 H Blood Pressure Mean (mm Hg) 102 112 96 Source Monitor Monitor Monitor Position Semi-Fowlers Semi-Fowlers Blood Pressure Location Left Arm Left Arm History Since Last Visit- (Skip if this is Patient's initial visit) Have you changed medications since your No No No last visit? Any new allergies or adverse reactions No No No Had a fall/change in ADL's that may No No No increase risk of falls Signs or symptoms of abuse and/or No No No neglect since last visit Have you been in the hospital since your No No No last visit? Has dressing in place as prescribed Yes Yes Yes Has compression in place as prescribed Yes Yes Yes Has offloadiing in place as prescribed N/A Yes No Experienced any changes in pain level or No No No management Left Footwear Slipper Right Footwear Slipper Pain Scale: 0-10 Numeric Is Patient Pain Free? Yes Yes No LLE -Description Sharp -Intensity 5 -Duration (hours) Acute -Pain Behavior Irritability, Withdrawal from Touch -Pain Aggravating Factors ADL's, Debridement -Alleviating Factors/Interventions Medication -Effectiveness of Alleviating Factor/ Moderately Intervention effective 09/09/23 09/16/23 15:08 15:27 WC - Today's Visit Information Type of service Follow-up Visit Follow-up Visit (Physician/REGIONAL SAFETY MANAGER (Physician/REGIONAL SAFETY MANAGER ) ) Arrival Mode Wheelchair Wheelchair Transfer Assistance Transfer Assist (Other) Accompanied by Patient Identification Verified (Name & Yes Yes ) Patient Requires Transmission-Based Precautions Height and Weight Body Mass Index (BMI) 23.6 23.6 BMI Classification Normal Normal Vital Signs Temperature (97.8 F-99.1 F) 97.1 F L 96.8 F L Temperature Source Temporal Temporal Pulse Rate (60-100) 91 80 Pulse Location Monitor Monitor Respiratory Rate (12-18) 16 18 Respiratory rate source Observation Observation Oxygen Delivery Method Room Air Room Air Blood Pressure (90/60-120/80) 120/70 105/60 Blood Pressure Mean (mm Hg) 86 75 Source Monitor Monitor Position Semi-Fowlers Semi-Fowlers Blood Pressure Location Left Arm Left Arm History Since Last Visit- (Skip if this is Patient's initial visit) Have you changed medications since your No No last visit? Any new allergies or adverse reactions No No Had a fall/change in ADL's that may No No increase risk of falls Signs or symptoms of abuse and/or No No neglect since last visit Have you been in the hospital since your No No last visit? Has dressing in place as prescribed Yes Yes Has compression in place as prescribed Yes Yes Has offloadiing in place as prescribed N/A Yes Experienced any changes in pain level or No No management Left Footwear Surgical Shoe Surgical Shoe with pressure with pressure relief insole relief insole Right Footwear Regular Shoe Regular Shoe Pain Scale: 0-10 Numeric Is Patient Pain Free? Yes Yes LLE -Description -Intensity -Duration (hours) -Pain Behavior -Pain Aggravating Factors -Alleviating Factors/Interventions -Effectiveness of Alleviating Factor/ Intervention WC - Nurse 1 - General Ulcer Measurement Start: 08/19/23 14:50 Freq: Status: Active Protocol: Activity Type Activity Date Activity User E-sign Co-sign Detail Recorded Client Recorded Date Recorded By Document 08/19/23 14:50 KW 0000 08/19/23 14:56 KW Document 08/26/23 15:07 DL [email or web address] 08/26/23 15:19 DL Document 09/02/23 16:19 RB WOUND 09/02/23 16:23 RB Document 09/09/23 15:08 CP 09/09/23 15:14 CP Document 09/16/23 15:27 CP 09/16/23 15:29 CP 08/19/23 08/26/23 09/02/23 14:50 15:07 16:19 Wound Center Nurse 1 #2 LT HALLUX -Combined with other wound No -Current Size (cm) - Length 1.7 0 -Current Size (cm) - Width 2.3 0 -Current Size (cm) - Depth 0.1 -Total Square Cm 3.91 0 -Photo Taken No Yes -Epithelialization Small 1-33% -Tunneling No -Undermining/Tunneling No -Circular Undermining No -Exudate Amt Small None Present -Exudate Type Serosanguineous Serosanguineous -Wound Margin Flat & Intact Flat & Intact -Granulation Amt Large (67-100%) Large (67-100%) -Granulation Quality [place],Red -Slough/Fibrin Yes -Necrosis Amt Small (1-33%) None Present (0 %) -Necrotic Tissue Type Adherent Slough -Structure Exposed N/A N/A -Texture (Terri-wound Skin Appearance) Assessed Scarring -Moisture (Terri-wound Skin Appearance) Assessed, No Abnormality, Maceration Maceration -Color (Terri-wound Skin Appearance) Assessed No Abnormality -Temperature (Terri-wound Skin No Abnormality No Abnormality Appearance) (Pt Warm) (Pt Warm) -Tenderness on Palpation (Terri-wound No Skin Appearance) -Ulcer Cleansing Wound Cleanser Soap and Water -Foul Odor after Cleansing No No -Anesthetic Used 4% Lidocaine 5% Lidocaine Solution Gel 1. L Lateral foot POST-OP -Combined with other wound No No -Current Size (cm) - Length 4 3.5 1.5 -Current Size (cm) - Width 1.5 1.5 4 -Current Size (cm) - Depth 1.0 1.3 0.8 -Total Square Cm 6.0 5.25 6.0 -Date of Last Picture (Recall this field) -Photo Taken No Yes -Epithelialization Small 1-33% -Tunneling No No -Undermining/Tunneling No No -Circular Undermining No No -Exudate Amt Medium Large Large -Exudate Type Serosanguineous Serosanguineous Serosanguineous -Wound Margin Flat & Intact Distinct, Thickened & Outline Rolled Under Attached -Granulation Amt Medium (34-66%) Medium (34-66%) Medium (34-66%) -Granulation Quality Red [place] -Slough/Fibrin Yes Yes -Necrosis Amt Small (1-33%) Medium (34-66%) Medium (34-66%) -Necrotic Tissue Type Adherent Slough Adherent Slough Adherent Slough -Structure Exposed N/A N/A N/A -Texture (Terri-wound Skin Appearance) Assessed, Scarring Assessed Localized Edema -Moisture (Terri-wound Skin Appearance) Assessed,Dry/ Maceration Maceration Scaly -Color (Terri-wound Skin Appearance) Assessed No Abnormality Assessed -Temperature (Terri-wound Skin No Abnormality No Abnormality No Abnormality Appearance) (Pt Warm) (Pt Warm) (Pt Warm) -Tenderness on Palpation (Terri-wound No No Skin Appearance) -Ulcer Cleansing Wound Cleanser Soap and Water Wound Cleanser -Foul Odor after Cleansing No No No -Anesthetic Used 4% Lidocaine 5% Lidocaine 5% Lidocaine Solution Gel Gel Lower Limb Edema Present Yes Right Calf (cm) 35.5 Right Ankle (cm) 26.5 Left Calf (cm) 36.5 Left Ankle (cm) 22.7 09/09/23 09/16/23 15:08 15:27 Wound Center Nurse 1 #2 LT HALLUX -Combined with other wound -Current Size (cm) - Length -Current Size (cm) - Width -Current Size (cm) - Depth -Total Square Cm -Photo Taken -Epithelialization -Tunneling -Undermining/Tunneling -Circular Undermining -Exudate Amt -Exudate Type -Wound Margin -Granulation Amt -Granulation Quality -Slough/Fibrin -Necrosis Amt -Necrotic Tissue Type -Structure Exposed -Texture (Terri-wound Skin Appearance) -Moisture (Terri-wound Skin Appearance) -Color (Terri-wound Skin Appearance) -Temperature (Terri-wound Skin Appearance) -Tenderness on Palpation (Terri-wound Skin Appearance) -Ulcer Cleansing -Foul Odor after Cleansing -Anesthetic Used 1. L Lateral foot POST-OP -Combined with other wound -Current Size (cm) - Length 3 2.5 -Current Size (cm) - Width 0.8 0.7 -Current Size (cm) - Depth 0.5 0.2 -Total Square Cm 2.4 1.75 -Date of Last Picture (Recall this 09/09/23 field) -Photo Taken -Epithelialization -Tunneling -Undermining/Tunneling -Circular Undermining -Exudate Amt Medium Small -Exudate Type Serosanguineous Serosanguineous -Wound Margin Distinct, Distinct, Outline Outline Attached Attached -Granulation Amt Small (1-33%) Small (1-33%) -Granulation Quality [place] -Slough/Fibrin -Necrosis Amt Large (67-100%) Large (67-100%) -Necrotic Tissue Type Adherent Slough Adherent Slough -Structure Exposed -Texture (Terri-wound Skin Appearance) Assessed Assessed -Moisture (Terri-wound Skin Appearance) Assessed,Dry/ Assessed Scaly -Color (Terri-wound Skin Appearance) Assessed Assessed -Temperature (Terri-wound Skin No Abnormality No Abnormality Appearance) (Pt Warm) (Pt Warm) -Tenderness on Palpation (Terri-wound No No Skin Appearance) -Ulcer Cleansing Soap and Water Soap and Water -Foul Odor after Cleansing No No -Anesthetic Used 5% Lidocaine 5% Lidocaine Gel Gel Lower Limb Edema Present Right Calf (cm) Right Ankle (cm) Left Calf (cm) Left Ankle (cm) WC - Nurse 2 - General Ulcer CM Notes Start: 08/19/23 14:50 Freq: Status: Active Protocol: Activity Type Activity Date Activity User E-sign Co-sign Detail Recorded Client Recorded Date Recorded By Document 08/19/23 15:01 JF 0000 08/19/23 15:05 Document 08/26/23 15:42 JF 000 08/26/23 15:45 JF Edit Result 08/26/23 15:42 JF (1) 000 08/26/23 15:47 JF Edit Result 08/26/23 15:42 JF (2) 0000 09/08/23 14:19 Document 09/02/23 16:28 [facility] 09/02/23 16:34 Document 09/09/23 15:27 JF 000 09/09/23 15:33 JF Document 09/16/23 15:34 0000 09/16/23 15:40 JF (1) 1. L Lateral foot POST-OP - Expiration Date => 02/17/28 - Product Lot Number => [id number] - Percent Used => 100 - Lot number of Saline Used => [id number] (2) 1. L Lateral foot POST-OP - Apply Skin Sub - 1st 25 sq cm - Legs 1 => - Apply Skin Sub - 1st 25 sq cm - Feet => 1 08/19/23 08/26/23 09/02/23 15:01 15:42 16:28 Wound Center Nurse 2 #2 LT HALLUX -Correct Patient No No -Correct Side, Site, Position No No -Correct Procedure No No -Procedure Performed No No -Post Debridement (cm) - Length 0 -Post Debridement (cm) - Width 0 -Post Debridement (cm) - Depth 0 -Total Square (Post) (cm) 0 -Area of Debridement (cm) - Length 0 -Area of Debridement (cm) - Width 0 -Total Square (Area) (cm) 0 -Wound/Ulcer Outcome Not Healed Healed- Epithelialized 1. L Lateral foot POST-OP -Time 15:01 15:43 16:31 -Correct Patient Yes Yes Yes -Correct Side, Site, Position Yes Yes Yes -Correct Procedure Yes Yes Yes -Procedure Performed Yes Yes Yes -Type of Procedure Debridement Debridement Debridement -Clinical Debridement Subcutaneous Muscle / Fascia Muscle / Fascia -Tissue Removed Subcutaneous Muscle,Fascia Muscle -Post Debridement (cm) - Length 4.5 4.5 4.0 -Post Debridement (cm) - Width 1.6 1.5 1.1 -Post Debridement (cm) - Depth 1.7 1.5 0.9 -Total Square (Post) (cm) 7.20 6.75 4.40 -Area of Debridement (cm) - Length 4.5 4.5 4.0 -Area of Debridement (cm) - Width 1.6 1.5 1.1 -Total Square (Area) (cm) 7.20 6.75 4.40 -Tunneling No No No -Undermining/Tunneling No No No -Circular Undermining No No No -Wound/Ulcer Outcome Not Healed Not Healed Not Healed -Ulcer Cleansing Rinsed/ Rinsed/ Not Cleansed Irrigated with Irrigated with Saline Saline -Foul Odor after Cleansing No No No -Bioengineered Tissue No Yes Yes -Type of Bioengineered Tissue Epicord Epicord -Expiration Date 02/17/28 02/17/28 -Product Lot Number [id number] -Percent Used 100 100 -Lot number of Saline Used [id number] -Bleeding Controlled with Pressure Pressure Pressure -Treatment Response Procedure Procedure Procedure Tolerated Well Tolerated Well Tolerated Well -Offloading Yes Yes -Type of Offloading Surgical Shoe Surgical Shoe -Debridement - Subq, 1st 20sq cm Yes No -Debridement - Muscle / Fascia, 1st No Yes 20sq cm -Apply Skin Sub - 1st 25 sq cm - Legs 1 -Apply Skin Sub - 1st 25 sq cm - Feet 1 -Epicord (per sq cm) 6 6 Pain Scale: 0-10 Numeric Is Patient Pain Free? Yes Yes Yes 09/09/23 09/16/23 15:27 15:34 Wound Center Nurse 2 #2 LT HALLUX -Correct Patient -Correct Side, Site, Position -Correct Procedure -Procedure Performed -Post Debridement (cm) - Length -Post Debridement (cm) - Width -Post Debridement (cm) - Depth -Total Square (Post) (cm) -Area of Debridement (cm) - Length -Area of Debridement (cm) - Width -Total Square (Area) (cm) -Wound/Ulcer Outcome 1. L Lateral foot POST-OP -Time 15:27 15:34 -Correct Patient Yes Yes -Correct Side, Site, Position Yes Yes -Correct Procedure Yes Yes -Procedure Performed Yes Yes -Type of Procedure Debridement Debridement -Clinical Debridement Muscle / Fascia Subcutaneous -Tissue Removed Fascia Subcutaneous -Post Debridement (cm) - Length 3.2 2.6 -Post Debridement (cm) - Width 1.0 0.8 -Post Debridement (cm) - Depth 1.2 1.1 -Total Square (Post) (cm) 3.20 2.08 -Area of Debridement (cm) - Length 3.2 2.6 -Area of Debridement (cm) - Width 1.0 0.8 -Total Square (Area) (cm) 3.20 2.08 -Tunneling No No -Undermining/Tunneling No No -Circular Undermining No No -Wound/Ulcer Outcome Not Healed Not Healed -Ulcer Cleansing Rinsed/ Rinsed/ Irrigated with Irrigated with Saline Saline -Foul Odor after Cleansing No No -Bioengineered Tissue Yes Yes -Type of Bioengineered Tissue Epicord Epicord -Expiration Date 02/17/28 02/17/28 -Product Lot Number [id number] -Percent Used 100 100 -Lot number of Saline Used [id number] -Bleeding Controlled with Pressure Pressure -Treatment Response Procedure Procedure Tolerated Well Tolerated Well -Offloading No Yes -Type of Offloading Surgical Shoe -Debridement - Subq, 1st 20sq cm No No -Debridement - Muscle / Fascia, 1st No No 20sq cm -Apply Skin Sub - 1st 25 sq cm - Legs -Apply Skin Sub - 1st 25 sq cm - Feet 1 1 -Epicord (per sq cm) 6 6 Pain Scale: 0-10 Numeric Is Patient Pain Free? Yes Yes WC - Nurse 3 - General Ulcer D/C NN Start: 08/19/23 14:50 Freq: Status: Active Protocol: Activity Type Activity Date Activity User E-sign Co-sign Detail Recorded Client Recorded Date Recorded By Document 08/19/23 15:19 DL [id number] 08/19/23 15:20 DL Document 08/26/23 15:53 KW l 08/26/23 15:54 KW Document 09/02/23 16:44 DL [email or web address] 09/02/23 16:44 DL Document 09/09/23 15:38 CP 09/09/23 15:40 CP 08/19/23 08/26/23 09/02/23 15:19 15:53 16:44 Wound Care Center Nurse 3 #2 LT HALLUX -Ulcer Cleansing Rinsed/ Irrigated with Saline -Foul Odor after Cleansing No -Other Dressing betadine -Primary Dressing Covered/Secured with Dry Gauze & Roll Gauze, Secured with Tape 1. L Lateral foot POST-OP -Ulcer Cleansing Soap and Water -Foul Odor after Cleansing No No -Negative Pressure Wound Therapy Continue -Setting (mmHg) 125 -Negative Pressure is Continuous -Other Dressing epicord -Primary Dressing Covered/Secured with Dry Gauze & Dry Gauze & Roll Gauze, Roll Gauze, Secured with Secured with Tape Tape -Other Covering tubigrip -NPWT Application Charge NPWT & Debridement (nc ) Left -Tubular Bandage Double Layer -Size of Tubigrip Used Size D -Size D ($) 2 suzanne -Tubular Bandage Single Layer -Size of Tubigrip Used Size E -Size E ($) 2 Treatment Response Procedure Procedure Tolerated Well Tolerated Well Pain Scale: 0-10 Numeric Is Patient Pain Free? Yes Yes Yes WC - Visit Discharge Discharge Condition Stable Stable Stable Ambulatory Status Wheelchair Wheelchair Wheelchair Transportation Private Auto Private Auto Private Auto Medication Reconcilliation completed & No provided to patient/care provider Clinical Summary of Care Provided Yes Facility Type Director Digital Strategy [facility] Facility Orders Sent Yes Yes 09/09/23 15:38 Wound Care Center Nurse 3 #2 LT HALLUX -Ulcer Cleansing -Foul Odor after Cleansing -Other Dressing -Primary Dressing Covered/Secured with 1. L Lateral foot POST-OP -Ulcer Cleansing -Foul Odor after Cleansing -Negative Pressure Wound Therapy -Setting (mmHg) -Negative Pressure is -Other Dressing -Primary Dressing Covered/Secured with Dry Gauze & Roll Gauze, Secured with Tape -Other Covering -NPWT Application Charge Left -Tubular Bandage Double Layer -Size of Tubigrip Used Size D -Size D ($) 2 suzanne -Tubular Bandage -Size of Tubigrip Used -Size E ($) Treatment Response Procedure Tolerated Well Pain Scale: 0-10 Numeric Is Patient Pain Free? Yes WC - Visit Discharge Discharge Condition Stable Ambulatory Status Wheelchair Transportation Private Auto Medication Reconcilliation completed & provided to patient/care provider Clinical Summary of Care Provided Yes Facility Type Orders Sent Assessment/Plan Assessment/Plan (1) Non-pressure chronic ulcer of other part of left foot with fat layer exposed: CODE(S): L97.522 - Non-pressure chronic ulcer of other part of left foot with fat layer exposed PLAN: Patient was examined and evaluated. All findings were discussed with the patient. All questions were answered to the patient's satisfaction. Excisional debridement down to and including subcutaneous tissue of the left lateral full-thickness ulceration with a number 3 mm dermal curette without incident. Predebridement measurement was 2.4 x 0.7 x 0.7. Postdebridement measurement is 2.6 x 0.8 x 1.1 cm. EpiCord 2.0 x 3.0 cm graft was applied to the left full-thickness ulceration with 100% use. 4th application. The graft site was free and clear of any infection. The wound/skin graft substitute was dressed with nonadherent bandage secured in place with Steri-Strips followed by application of snap VAC with Thad bandage. Follow-up at the wound care center with Dr. Guaman in 1 week. (2) Other specified peripheral vascular diseases: CODE(S): I73.89 - Other specified peripheral vascular diseases
== END 2023-09-16 23:59 | disposition home or self-care (01) ==
LOC: WC 15:15
PROVIDERS: PCP Family Medicine; Referring Provider Podiatrist Foot & Ankle Surgery; Visit Provider Podiatrist Foot & Ankle Surgery
DX: L97.522 Non-pressure chronic ulcer of other part of left foot with fat layer exposed (principal); I27.20 Pulmonary hypertension, unspecified; M79.89 Other specified soft tissue disorders; I73.89 Other specified peripheral vascular diseases; S90.521A Blister (nonthermal), right ankle, initial encounter; X58.XXXA Exposure to other specified factors, initial encounter; F17.210 Nicotine dependence, cigarettes, uncomplicated; Z79.82 Long term (current) use of aspirin; Z79.01 Long term (current) use of anticoagulants; Z79.899 Other long term (current) drug therapy
CPT/HCPCS: 11042; 11043; 15271; 15275; Q4187

== ENCOUNTER 2023-10-14 15:15 | Outpatient (RCR) | payer MEDICARE, SELFPAY ==
[2023-09-17 00:46] VITALS: BP 96/50; PULSE 77; RESP 20; TEMP 36.8; BMI 23.6
[2023-09-23 15:31] VITALS: BP 133/85; PULSE 93; RESP 18; TEMP 37.1; BMI 23.6
--- NOTE | 2023-09-23 16:45 | PCM.WC.PN ---
History of Present Illness Date of Service: 09/23/23 Chief Complaint: Left foot wound History of Wound: Left foot wound secondary to surgery from outside provider Subjective Subjective Mr. Oliva is a 73-year-old male presenting with her son today for follow-up evaluation of left foot full-thickness ulceration. He has left his snap clean dry and intact. He admits to decreased smoking. Denies any pain to the left foot. Denies trauma. Denies constitutional symptoms. No other pedal complaints at this time. Objective Data Objective Data Vital Signs: Vital Signs Temp Pulse Resp BP O2 Flow Rate 98.8 F 93 18 133/85 H 3 09/23/23 15:31 09/23/23 15:31 09/23/23 15:31 09/23/23 15:31 09/17/23 00:46 Oxygen Flow Rate (L/min) 3 Weight: 72.575 kg Body Mass Index (BMI) 23.6 Physical Exam Narrative Vascular: PT, peroneal arteries are biphasic on Doppler. AT and DP are monophasic on Doppler. CFT is 4 seconds. Nonpitting edema appreciated to the left lower extremity. +1 pitting edema appreciated to the right lower extremity, improving. Skin temperature gradient is warm to cool from proximal ankle to distal digits bilateral. Neurological: Light touch intact. Protective sensation is intact. Patient response to painful stimuli. Dermatological: Full-thickness ulceration measuring 2.9 x 0.7 x 1.1 cm. No malodor or probe to bone. Excisional debridement down to and including subcutaneous tissue of the left lateral full-thickness ulceration with a number 3 mm dermal curette without incident. Predebridement measurement was 2.7 x 0.6 x 0.4. Postdebridement measurement is 2.9 x 0.7 x 1.1 cm. EpiCord 2.0 x 3.0 cm graft was applied to the left full-thickness ulceration with 100% use. 5th application. The graft site was free and clear of any infection. The wound/skin graft substitute was dressed with nonadherent bandage secured in place with Steri-Strips followed by bolster dressing as well as a double layer Tubigrip. Musculoskeletal: No palpatory tenderness appreciated to left lower extremity incision or skin graft. No pain with calf compression Debridement Note Debridement Note Debridement Free Text: Excisional debridement down to and including subcutaneous tissue of the left lateral full-thickness ulceration with a number 3 mm dermal curette without incident. Predebridement measurement was 2.7 x 0.6 x 0.4. Postdebridement measurement is 2.9 x 0.7 x 1.1 cm. EpiCord 2.0 x 3.0 cm graft was applied to the left full-thickness ulceration with 100% use. 5th application. The graft site was free and clear of any infection. The wound/skin graft substitute was dressed with nonadherent bandage secured in place with Steri-Strips followed by bolster dressing as well as a double layer Tubigrip. 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 ) Arrival Mode Ambulatory, Walker, Wheelchair Transfer Assistance None Patient Identification Verified (Name & Yes ) Patient Requires Transmission-Based No Precautions Height and Weight Body Mass Index (BMI) 23.6 BMI Classification Normal Vital Signs Temperature (97.8 F-99.1 F) 98.8 F Temperature Source Temporal Pulse Rate (60-100) 93 Pulse Location Monitor Respiratory Rate (12-18) 18 Respiratory rate source Observation Blood Pressure (90/60-120/80) 133/85 H Blood Pressure Mean (mm Hg) 101 Source Monitor History Since Last Visit- (Skip if this is Patient's initial visit) Have you changed medications since your No last visit? Any new allergies or adverse reactions No Had a fall/change in ADL's that may No increase risk of falls Signs or symptoms of abuse and/or No neglect since last visit Have you been in the hospital since your No last visit? Has dressing in place as prescribed Yes Has compression in place as prescribed Yes Has offloadiing in place as prescribed Yes Experienced any changes in pain level or No management Left Footwear Surgical Shoe with pressure relief insole Pain Scale: 0-10 Numeric Is Patient Pain Free? Yes - Nurse 1 - General Ulcer Measurement Start: 09/23/23 15:28 Freq: Status: Active Protocol: Activity Type Activity Date Activity User E-sign Co-sign Detail Recorded Client Recorded Date Recorded By Document 09/23/23 15:31 DL [email or web address] 09/23/23 15:38 DL 09/23/23 15:31 Wound Center Nurse 1 1. L Lateral foot POST-OP -Current Size (cm) - Length 0.8 -Current Size (cm) - Width 2 -Current Size (cm) - Depth 0.1 -Total Square Cm 1.6 -Exudate Amt Medium -Exudate Type Serosanguineous -Wound Margin Distinct, Outline Attached -Granulation Amt Medium (34-66%) -Granulation Quality Red -Necrosis Amt Medium (34-66%) -Necrotic Tissue Type Adherent Slough -Structure Exposed N/A -Texture (Terri-wound Skin Appearance) Scarring -Moisture (Terri-wound Skin Appearance) Maceration -Color (Terri-wound Skin Appearance) No Abnormality -Temperature (Terri-wound Skin No Abnormality Appearance) (Pt Warm) -Ulcer Cleansing Soap and Water -Foul Odor after Cleansing No -Anesthetic Used 5% Lidocaine Gel Left Calf (cm) 26.5 Left Ankle (cm) 17.6 WC - Nurse 2 - General Ulcer CM Notes Start: 09/23/23 15:28 Freq: Status: Active Protocol: Activity Type Activity Date Activity User E-sign Co-sign Detail Recorded Client Recorded Date Recorded By Document 09/23/23 15:51 JF 000 09/23/23 15:55 JF 09/23/23 15:51 Wound Center Nurse 2 1. L Lateral foot POST-OP -Time 15:53 -Correct Patient Yes -Correct Side, Site, Position Yes -Correct Procedure Yes -Procedure Performed Yes -Type of Procedure Debridement -Clinical Debridement Muscle / Fascia -Tissue Removed Muscle,Fascia -Post Debridement (cm) - Length 2.9 -Post Debridement (cm) - Width 0.7 -Post Debridement (cm) - Depth 1.1 -Total Square (Post) (cm) 2.03 -Area of Debridement (cm) - Length 2.9 -Area of Debridement (cm) - Width 0.7 -Total Square (Area) (cm) 2.03 -Tunneling No -Undermining/Tunneling No -Circular Undermining No -Wound/Ulcer Outcome Not Healed -Ulcer Cleansing Rinsed/ Irrigated with Saline -Foul Odor after Cleansing No -Bioengineered Tissue Yes -Type of Bioengineered Tissue Epicord -Expiration Date 12/18/27 -Product Lot Number [id number] -Percent Used 100 -Lot number of Saline Used [id number] -Bleeding Controlled with Pressure -Treatment Response Procedure Tolerated Well -Offloading Yes -Type of Offloading Surgical Shoe -Debridement - Muscle / Fascia, 1st No 20sq cm -Apply Skin Sub - 1st 25 sq cm - Feet 1 -Epicord (per sq cm) 6 Pain Scale: 0-10 Numeric Is Patient Pain Free? Yes WC - Nurse 3 - General Ulcer D/C NN Start: 09/23/23 15:28 Freq: Status: Active Protocol: Activity Type Activity Date Activity User E-sign Co-sign Detail Recorded Client Recorded Date Recorded By Document 09/23/23 16:03 KW fcg 09/23/23 16:04 KW 09/23/23 16:03 Wound Care Center Nurse 3 1. L Lateral foot POST-OP -Negative Pressure Wound Therapy Continue -Setting (mmHg) 125 -Negative Pressure is Continuous -NPWT Application Charge NPWT & Debridement (nc ) Left -Compression Wrap Thad Wrap Pain Scale: 0-10 Numeric Is Patient Pain Free? Yes WC - Visit Discharge Discharge Condition Stable Ambulatory Status Wheelchair Transportation Private Auto Medication Reconcilliation completed & No provided to patient/care provider Clinical Summary of Care Provided Yes Assessment/Plan Assessment/Plan (1) Non-pressure chronic ulcer of other part of left foot with fat layer exposed: CODE(S): L97.522 - Non-pressure chronic ulcer of other part of left foot with fat layer exposed PLAN: Patient was examined and evaluated. All findings were discussed with the patient. All questions were answered to the patient's satisfaction. Excisional debridement down to and including subcutaneous tissue of the left lateral full-thickness ulceration with a number 3 mm dermal curette without incident. Predebridement measurement was 2.7 x 0.6 x 0.4. Postdebridement measurement is 2.9 x 0.7 x 1.1 cm. EpiCord 2.0 x 3.0 cm graft was applied to the left full-thickness ulceration with 100% use. 5th application. The graft site was free and clear of any infection. The wound/skin graft substitute was dressed with nonadherent bandage secured in place with Steri-Strips followed by bolster dressing as well as a double layer Tubigrip. Negative pressure snap VAC was applied to the left lower extremity prior to Tubigrip application per the sludge control attendant's recommendation. Follow-up at the wound care center with Dr. Guaman in 1 week. (2) Other specified peripheral vascular diseases: CODE(S): I73.89 - Other specified peripheral vascular diseases
[2023-09-30 11:38] VITALS: BP 122/74; PULSE 84; RESP 18; TEMP 36.3; BMI 23.6
--- NOTE | 2023-09-30 15:05 | PCM.WC.PN ---
History of Present Illness Date of Service: 09/30/23 Chief Complaint: Left foot wound History of Wound: Left foot wound secondary to surgery from outside provider Subjective Subjective Mr. Oliva is a 73-year-old male presenting with her son today for follow-up evaluation of left foot full-thickness ulceration. He has left his snap clean dry and intact. He admits to decreased smoking. Denies any pain to the left foot. Denies trauma. Denies constitutional symptoms. No other pedal complaints at this time. Objective Data Objective Data Vital Signs: Vital Signs Temp Pulse Resp BP O2 Del Method O2 Flow Rate 97.3 F L 84 18 122/74 H Nasal Cannula 3 09/30/23 11:38 09/30/23 11:38 09/30/23 11:38 09/30/23 11:38 09/30/23 11:38 09/17/23 00:46 Oxygen Flow Rate (L/min) 3 Oxygen Delivery Method Nasal Cannula Weight: 72.575 kg Body Mass Index (BMI) 23.6 Physical Exam Narrative Vascular: PT, peroneal arteries are biphasic on Doppler. AT and DP are monophasic on Doppler. CFT is 4 seconds. Nonpitting edema appreciated to the left lower extremity. +1 pitting edema appreciated to the right lower extremity, improving. Skin temperature gradient is warm to cool from proximal ankle to distal digits bilateral. Neurological: Light touch intact. Protective sensation is intact. Patient response to painful stimuli. Dermatological: Full-thickness ulceration measuring 2.1 x 0.6 x 0.7 cm. No malodor or probe to bone. Excisional debridement down to and including subcutaneous tissue of the left lateral full-thickness ulceration with a number 3 mm dermal curette without incident. Predebridement measurement was 1.9 x 0.4 x 0.3. Postdebridement measurement is 2.1 x 0.6 x 0.7 cm. EpiCord 2.0 x 3.0 cm graft was applied to the left full-thickness ulceration with 100% use. 6th application. The graft site was free and clear of any infection. The wound/skin graft substitute was dressed with nonadherent bandage secured in place with Steri-Strips followed by bolster dressing as well as a double layer Tubigrip. Musculoskeletal: No palpatory tenderness appreciated to left lower extremity incision or skin graft. No pain with calf compression Debridement Note Debridement Note Debridement Free Text: Excisional debridement down to and including subcutaneous tissue of the left lateral full-thickness ulceration with a number 3 mm dermal curette without incident. Predebridement measurement was 1.9 x 0.4 x 0.3. Postdebridement measurement is 2.1 x 0.6 x 0.7 cm. EpiCord 2.0 x 3.0 cm graft was applied to the left full-thickness ulceration with 100% use. 6th application. The graft site was free and clear of any infection. The wound/skin graft substitute was dressed with nonadherent bandage secured in place with Steri-Strips followed by bolster dressing as well as a double layer Tubigrip. 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 (Physician/ADULT REMEDIAL EDUCATION INSTRUCTOR ) ) Arrival Mode Ambulatory, Wheelchair Walker, Wheelchair Transfer Assistance None Accompanied by Patient Identification Verified (Name & Yes Yes ) Patient Requires Transmission-Based No Precautions Height and Weight Body Mass Index (BMI) 23.6 23.6 BMI Classification Normal Normal Vital Signs Temperature (97.8 F-99.1 F) 98.8 F 97.3 F L Temperature Source Temporal Temporal Pulse Rate (60-100) 93 84 Pulse Location Monitor Monitor Respiratory Rate (12-18) 18 18 Respiratory rate source Observation Observation Oxygen Delivery Method Nasal Cannula Blood Pressure (90/60-120/80) 133/85 H 122/74 H Blood Pressure Mean (mm Hg) 101 90 Source Monitor Monitor Position Semi-Fowlers Blood Pressure Location Left Arm History Since Last Visit- (Skip if this is Patient's initial visit) Have you changed medications since your No No last visit? Any new allergies or adverse reactions No No Had a fall/change in ADL's that may No No increase risk of falls Signs or symptoms of abuse and/or No No neglect since last visit Have you been in the hospital since your No last visit? Has dressing in place as prescribed Yes Yes Has compression in place as prescribed Yes Yes Has offloadiing in place as prescribed Yes Yes Experienced any changes in pain level or No No management Left Footwear Surgical Shoe Surgical Shoe with pressure with pressure relief insole relief insole Right Footwear Regular Shoe Pain Scale: 0-10 Numeric Is Patient Pain Free? Yes Yes - Nurse 1 - General Ulcer Measurement Start: 09/23/23 15:28 Freq: Status: Active Protocol: Activity Type Activity Date Activity User E-sign Co-sign Detail Recorded Client Recorded Date Recorded By Document 09/23/23 15:31 DL [email or web address] 09/23/23 15:38 DL Document 09/30/23 11:38 GM 09/30/23 11:43 GM 09/23/23 09/30/23 15:31 11:38 Wound Center Nurse 1 1. L Lateral foot POST-OP -Current Size (cm) - Length 0.8 0.5 -Current Size (cm) - Width 2 2.8 -Current Size (cm) - Depth 0.1 0.3 -Total Square Cm 1.6 1.40 -Exudate Amt Medium Medium -Exudate Type Serosanguineous Serosanguineous -Wound Margin Distinct, Distinct, Outline Outline Attached Attached -Granulation Amt Medium (34-66%) Large (67-100%) -Granulation Quality [place] -Necrosis Amt Medium (34-66%) -Necrotic Tissue Type Adherent Slough -Structure Exposed N/A -Texture (Terri-wound Skin Appearance) Scarring Assessed -Moisture (Terri-wound Skin Appearance) Maceration Assessed, Maceration -Color (Terri-wound Skin Appearance) No Abnormality Assessed -Temperature (Terri-wound Skin No Abnormality No Abnormality Appearance) (Pt Warm) (Pt Warm) -Tenderness on Palpation (Terri-wound No Skin Appearance) -Ulcer Cleansing Soap and Water Soap and Water -Foul Odor after Cleansing No -Anesthetic Used 5% Lidocaine 5% Lidocaine Gel Gel Left Calf (cm) 26.5 Left Ankle (cm) 17.6 WC - Nurse 2 - General Ulcer CM Notes Start: 09/23/23 15:28 Freq: Status: Active Protocol: Activity Type Activity Date Activity User E-sign Co-sign Detail Recorded Client Recorded Date Recorded By Document 09/23/23 15:51 JF 000 09/23/23 15:55 JF Document 09/30/23 11:46 JF 0000 09/30/23 11:52 JF 09/23/23 09/30/23 15:51 11:46 Wound Center Nurse 2 1. L Lateral foot POST-OP -Time 15:53 11:50 -Correct Patient Yes Yes -Correct Side, Site, Position Yes Yes -Correct Procedure Yes Yes -Procedure Performed Yes Yes -Type of Procedure Debridement Debridement -Clinical Debridement Muscle / Fascia Muscle / Fascia -Tissue Removed Muscle,Fascia Muscle,Fascia -Post Debridement (cm) - Length 2.9 2.1 -Post Debridement (cm) - Width 0.7 0.6 -Post Debridement (cm) - Depth 1.1 0.7 -Total Square (Post) (cm) 2.03 1.26 -Area of Debridement (cm) - Length 2.9 2.1 -Area of Debridement (cm) - Width 0.7 0.6 -Total Square (Area) (cm) 2.03 1.26 -Tunneling No No -Undermining/Tunneling No No -Circular Undermining No No -Wound/Ulcer Outcome Not Healed Not Healed -Ulcer Cleansing Rinsed/ Rinsed/ Irrigated with Irrigated with Saline Saline -Foul Odor after Cleansing No No -Bioengineered Tissue Yes Yes -Type of Bioengineered Tissue Epicord Epicord -Expiration Date 12/18/27 12/18/27 -Product Lot Number [id number] -Percent Used 100 100 -Lot number of Saline Used [id number] -Bleeding Controlled with Pressure Pressure -Treatment Response Procedure Procedure Tolerated Well Tolerated Well -Offloading Yes Yes -Type of Offloading Surgical Shoe Surgical Shoe -Debridement - Subq, 1st 20sq cm No -Debridement - Muscle / Fascia, 1st No No 20sq cm -Apply Skin Sub - each addt'l 25 sq cm 1 - Legs -Apply Skin Sub - 1st 25 sq cm - Feet 1 -Epicord (per sq cm) 6 6 Pain Scale: 0-10 Numeric Is Patient Pain Free? Yes Yes WC - Nurse 3 - General Ulcer D/C NN Start: 09/23/23 15:28 Freq: Status: Active Protocol: Activity Type Activity Date Activity User E-sign Co-sign Detail Recorded Client Recorded Date Recorded By Document 09/23/23 16:03 KW fcg 09/23/23 16:04 KW Document 09/30/23 11:59 KW asfd 09/30/23 12:00 KW 09/23/23 09/30/23 16:03 11:59 Wound Care Center Nurse 3 1. L Lateral foot POST-OP -Negative Pressure Wound Therapy Continue Continue -Setting (mmHg) 125 125 -Negative Pressure is Continuous Continuous -NPWT Application Charge NPWT & NPWT & Debridement (nc Debridement (nc ) ) Left -Compression Wrap Thad Wrap suzanne -Compression Wrap Thad Wrap Pain Scale: 0-10 Numeric Is Patient Pain Free? Yes Yes WC - Visit Discharge Discharge Condition Stable Stable Ambulatory Status Wheelchair Wheelchair Transportation Private Auto Private Auto Accompanied by Medication Reconcilliation completed & No No provided to patient/care provider Clinical Summary of Care Provided Yes Yes Assessment/Plan Assessment/Plan (1) Non-pressure chronic ulcer of other part of left foot with fat layer exposed: CODE(S): L97.522 - Non-pressure chronic ulcer of other part of left foot with fat layer exposed PLAN: Patient was examined and evaluated. All findings were discussed with the patient. All questions were answered to the patient's satisfaction. Excisional debridement down to and including subcutaneous tissue of the left lateral full-thickness ulceration with a number 3 mm dermal curette without incident. Predebridement measurement was 1.9 x 0.4 x 0.3. Postdebridement measurement is 2.1 x 0.6 x 0.7 cm. EpiCord 2.0 x 3.0 cm graft was applied to the left full-thickness ulceration with 100% use. 6th application. The graft site was free and clear of any infection. The wound/skin graft substitute was dressed with nonadherent bandage secured in place with Steri-Strips followed by bolster dressing as well as a double layer Tubigrip. Follow-up at the wound care center with Dr. Guaman in 1 week. (2) Other specified peripheral vascular diseases: CODE(S): I73.89 - Other specified peripheral vascular diseases
[2023-10-07 11:17] VITALS: BP 117/68; PULSE 85; RESP 18; TEMP 36.3; BMI 23.6
--- NOTE | 2023-10-07 12:59 | PN.PCM_ITS ---
History of Present Illness Date of Service: 10/07/23 Chief Complaint: Left foot wound History of Wound: Left foot wound secondary to surgery from outside provider Subjective Subjective Mr. Oliva is a 73-year-old male presented wound care center today for follow-up evaluation to the left lateral foot wound. Patient has been compliant with the snap VAC and left clean dry and intact. He admits to some pain with weightbearing. Overall he is improving. Denies trauma. Denies constitutional symptoms. No other pedal complaints at this time. Objective Data Objective Data Vital Signs: Vital Signs Temp Pulse Resp BP O2 Del Method O2 Flow Rate 97.3 F L 85 18 117/68 Nasal Cannula 3 10/07/23 11:17 10/07/23 11:17 10/07/23 11:17 10/07/23 11:17 10/07/23 11:17 09/17/23 00:46 Oxygen Flow Rate (L/min) 3 Oxygen Delivery Method Nasal Cannula Weight: 72.575 kg Body Mass Index (BMI) 23.6 Physical Exam Narrative Vascular: PT, peroneal arteries are biphasic on Doppler. AT and DP are monophasic on Doppler. CFT is 4 seconds. Nonpitting edema appreciated to the left lower extremity. Skin temperature gradient is warm to cool from proximal ankle to distal digits bilateral. Neurological: Light touch intact. Protective sensation is intact. Patient response to painful stimuli. Dermatological: Full-thickness ulceration left foot measuring 1.7 x 0.5 x 0.6 cm. No malodor or probe to bone. Excisional debridement down to and including subcutaneous tissue of the left lateral full-thickness ulceration with a number 3 mm dermal curette without incident. Predebridement measurement was 1.6 x 0.4 x 0.2. Postdebridement measurement is 1.7 x 0.5 x 0.6 cm. Epifix 2.0 x 2.0 cm graft was applied to the left full-thickness ulceration with 100% use. 6th application. The graft site was free and clear of any infection. The wound/skin graft substitute was dressed with nonadherent bandage secured in place with Steri-Strips followed by bolster dressing as well as a double layer Tubigrip. Musculoskeletal: No palpatory tenderness appreciated to left lower extremity incision or skin graft. No pain with calf compression Debridement Note Debridement Note Debridement Free Text: Excisional debridement down to and including subcutaneous tissue of the left lateral full-thickness ulceration with a number 3 mm dermal curette without incident. Predebridement measurement was 1.6 x 0.4 x 0.2. Postdebridement measurement is 1.7 x 0.5 x 0.6 cm. Epifix 2.0 x 2.0 cm graft was applied to the left full-thickness ulceration with 100% use. 6th application. The graft site was free and clear of any infection. The wound/skin graft substitute was dressed with nonadherent bandage secured in place with Steri-Strips followed by bolster dressing as well as a double layer Tubigrip. Post-Debridement Measurements and Additional Note: Post-Debridement Measurements/Treatment - Nurse 1 - General Ulcer Assessment Start: 09/23/23 15:28 Freq: Status: Active Protocol: CARLOS Activity Type Activity Date Activity User E-sign Co-sign Detail Recorded Client Recorded Date Recorded By Document 09/23/23 15:31 DL [email or web address] 09/23/23 15:38 DL Document 09/30/23 11:38 GM 09/30/23 11:43 GM Document 10/07/23 11:17 [id number] 10/07/23 11:19 09/23/23 09/30/23 10/07/23 15:31 11:38 11:17 - Today's Visit Information Type of service Follow-up Visit Follow-up Visit Follow-up Visit (Physician/GRADUATE ASSISTANT ATHLETIC TRAINER (Physician/GRADUATE ASSISTANT ATHLETIC TRAINER (Physician/GRADUATE ASSISTANT ATHLETIC TRAINER ) ) ) Arrival Mode Ambulatory, Wheelchair Wheelchair Walker, Wheelchair Transfer Assistance None None Accompanied by Patient Identification Verified (Name & Yes Yes Yes ) Patient Requires Transmission-Based No No Precautions Height and Weight Body Mass Index (BMI) 23.6 23.6 23.6 BMI Classification Normal Normal Normal Vital Signs Temperature (97.8 F-99.1 F) 98.8 F 97.3 F L 97.3 F L Temperature Source Temporal Temporal Temporal Pulse Rate (60-100) 93 84 85 Pulse Location Monitor Monitor Monitor Respiratory Rate (12-18) 18 18 18 Respiratory rate source Observation Observation Observation Oxygen Delivery Method Nasal Cannula Nasal Cannula Blood Pressure (90/60-120/80) 133/85 H 122/74 H 117/68 Blood Pressure Mean (mm Hg) 101 90 84 Source Monitor Monitor Monitor Position Semi-Fowlers Semi-Fowlers Blood Pressure Location Left Arm Right Arm History Since Last Visit- (Skip if this is Patient's initial visit) Have you changed medications since your No No No last visit? Any new allergies or adverse reactions No No No Had a fall/change in ADL's that may No No No increase risk of falls Signs or symptoms of abuse and/or No No No neglect since last visit Have you been in the hospital since your No No last visit? Has dressing in place as prescribed Yes Yes Yes Has compression in place as prescribed Yes Yes Yes Has offloadiing in place as prescribed Yes Yes Yes Experienced any changes in pain level or No No No management Left Footwear Surgical Shoe Surgical Shoe Surgical Shoe with pressure with pressure with pressure relief insole relief insole relief insole Right Footwear Regular Shoe Regular Shoe Pain Scale: 0-10 Numeric Is Patient Pain Free? Yes Yes Yes WC - Nurse 1 - General Ulcer Measurement Start: 09/23/23 15:28 Freq: Status: Active Protocol: Activity Type Activity Date Activity User E-sign Co-sign Detail Recorded Client Recorded Date Recorded By Document 09/23/23 15:31 DL [email or web address] 09/23/23 15:38 DL Document 09/30/23 11:38 [facility] 09/30/23 11:43 Document 10/07/23 11:17 [id number] 10/07/23 11:19 09/23/23 09/30/23 10/07/23 15:31 11:38 11:17 Wound Center Nurse 1 1. L Lateral foot POST-OP -Current Size (cm) - Length 0.8 0.5 0.5 -Current Size (cm) - Width 2 2.8 1.5 -Current Size (cm) - Depth 0.1 0.3 0.2 -Total Square Cm 1.6 1.40 0.75 -Date of Last Picture (Recall this 10/07/23 field) -Photo Taken Yes -Epithelialization Small 1-33% -Tunneling No -Undermining/Tunneling No -Circular Undermining No -Exudate Amt Medium Medium Small -Exudate Type Serosanguineous Serosanguineous Serous -Wound Margin Distinct, Distinct, Distinct, Outline Outline Outline Attached Attached Attached -Granulation Amt Medium (34-66%) Large (67-100%) Small (1-33%) -Granulation Quality Red [place] Pale,[place] -Slough/Fibrin Yes -Necrosis Amt Medium (34-66%) -Necrotic Tissue Type Adherent Slough Adherent Slough -Structure Exposed N/A -Texture (Terri-wound Skin Appearance) Scarring Assessed Assessed -Moisture (Terri-wound Skin Appearance) Maceration Assessed, Assessed, Maceration Maceration -Color (Terri-wound Skin Appearance) No Abnormality Assessed Assessed -Temperature (Terri-wound Skin No Abnormality No Abnormality No Abnormality Appearance) (Pt Warm) (Pt Warm) (Pt Warm) -Tenderness on Palpation (Terri-wound No Yes Skin Appearance) -Ulcer Cleansing Soap and Water Soap and Water Soap and Water -Foul Odor after Cleansing No -Anesthetic Used 5% Lidocaine 5% Lidocaine 5% Lidocaine Gel Gel Gel Left Calf (cm) 26.5 Left Ankle (cm) 17.6 WC - Nurse 2 - General Ulcer CM Notes Start: 09/23/23 15:28 Freq: Status: Active Protocol: Activity Type Activity Date Activity User E-sign Co-sign Detail Recorded Client Recorded Date Recorded By Document 09/23/23 15:51 000 09/23/23 15:55 Document 09/30/23 11:46 0000 09/30/23 11:52 Document 10/07/23 11:30 [id number] 10/07/23 11:36 09/23/23 09/30/23 10/07/23 15:51 11:46 11:30 Wound Center Nurse 2 1. L Lateral foot POST-OP -Time 15:53 11:50 11:35 -Correct Patient Yes Yes Yes -Correct Side, Site, Position Yes Yes Yes -Correct Procedure Yes Yes Yes -Procedure Performed Yes Yes Yes -Type of Procedure Debridement Debridement Debridement -Clinical Debridement Muscle / Fascia Muscle / Fascia Subcutaneous -Tissue Removed Muscle,Fascia Muscle,Fascia Subcutaneous -Post Debridement (cm) - Length 2.9 2.1 1.7 -Post Debridement (cm) - Width 0.7 0.6 0.5 -Post Debridement (cm) - Depth 1.1 0.7 0.6 -Total Square (Post) (cm) 2.03 1.26 0.85 -Area of Debridement (cm) - Length 2.9 2.1 1.7 -Area of Debridement (cm) - Width 0.7 0.6 0.5 -Total Square (Area) (cm) 2.03 1.26 0.85 -Tunneling No No No -Undermining/Tunneling No No No -Circular Undermining No No No -Wound/Ulcer Outcome Not Healed Not Healed Not Healed -Ulcer Cleansing Rinsed/ Rinsed/ Rinsed/ Irrigated with Irrigated with Irrigated with Saline Saline Saline -Foul Odor after Cleansing No No No -Bioengineered Tissue Yes Yes Yes -Type of Bioengineered Tissue Epicord Epicord Epifix -Expiration Date 12/18/27 12/18/27 05/17/28 -Product Lot Number [id number] -Percent Used 100 100 100 -Lot number of Saline Used [id number] -Bleeding Controlled with Pressure Pressure Pressure -Treatment Response Procedure Procedure Procedure Tolerated Well Tolerated Well Tolerated Well -Offloading Yes Yes Yes -Type of Offloading Surgical Shoe Surgical Shoe Surgical Shoe -Debridement - Subq, 1st 20sq cm No No -Debridement - Muscle / Fascia, 1st No No 20sq cm -Apply Skin Sub - each addt'l 25 sq cm 1 - Legs -Apply Skin Sub - 1st 25 sq cm - Feet 1 1 -Epicord (per sq cm) 6 6 -Epifix (per sq cm) 4 Pain Scale: 0-10 Numeric Is Patient Pain Free? Yes Yes Yes WC - Nurse 3 - General Ulcer D/C NN Start: 09/23/23 15:28 Freq: Status: Active Protocol: Activity Type Activity Date Activity User E-sign Co-sign Detail Recorded Client Recorded Date Recorded By Document 09/23/23 16:03 KW fcg 09/23/23 16:04 KW Document 09/30/23 11:59 KW asfd 09/30/23 12:00 KW Document 10/07/23 11:51 [id number] 10/07/23 11:57 GM 09/23/23 09/30/23 10/07/23 16:03 11:59 11:51 Wound Care Center Nurse 3 1. L Lateral foot POST-OP -Ulcer Cleansing Not Cleansed -Foul Odor after Cleansing No -Negative Pressure Wound Therapy Continue Continue -Setting (mmHg) 125 125 -Negative Pressure is Continuous Continuous -Primary Dressing Covered/Secured with Dry Gauze & Roll Gauze, Secured with Tape -NPWT Application Charge NPWT & NPWT & Debridement (nc Debridement (nc ) ) Left -Lotion applied to leg before No compression wrap -Compression Wrap Thad Wrap -Tubular Bandage Single Layer -Size of Tubigrip Used Size D -Size D ($) 1 suzanne -Compression Wrap Thad Wrap Pain Scale: 0-10 Numeric Is Patient Pain Free? Yes Yes Yes WC - Visit Discharge Discharge Condition Stable Stable Stable Ambulatory Status Wheelchair Wheelchair Wheelchair Transportation Private Auto Private Auto Private Auto Accompanied by Medication Reconcilliation completed & No No provided to patient/care provider Clinical Summary of Care Provided Yes Yes Yes Assessment/Plan Assessment/Plan (1) Non-pressure chronic ulcer of other part of left foot with fat layer exposed: CODE(S): L97.522 - Non-pressure chronic ulcer of other part of left foot with fat layer exposed PLAN: Patient was examined and evaluated. All findings were discussed with the patient. All questions were answered to the patient's satisfaction. Excisional debridement down to and including subcutaneous tissue of the left lateral full-thickness ulceration with a number 3 mm dermal curette without incident. Predebridement measurement was 1.6 x 0.4 x 0.2. Postdebridement measurement is 1.7 x 0.5 x 0.6 cm. Epifix 2.0 x 2.0 cm graft was applied to the left full-thickness ulceration with 100% use. 6th application. The graft site was free and clear of any infection. The wound/skin graft substitute was dressed with nonadherent bandage secured in place with Steri-Strips followed by bolster dressing as well as a double layer Tubigrip. Follow-up at the wound care center with Dr. Guaman in 1 week. (2) Other specified peripheral vascular diseases: CODE(S): I73.89 - Other specified peripheral vascular diseases
--- NOTE | 2023-10-08 13:37 | WC ---
PHOTO 10/07/23 LEFT LATERAL FOOT
[2023-10-14 15:11] VITALS: BP 112/74; PULSE 91; RESP 20; TEMP 36.1; BMI 23.6
--- NOTE | 2023-10-14 15:45 | PCM.WC.PN ---
History of Present Illness Date of Service: 10/14/23 Chief Complaint: Left foot wound History of Wound: Left foot wound secondary to surgery from outside provider Subjective Subjective Mr. Oliva is a 73-year-old male presenting the wound care center today for follow-up evaluation of left lateral foot wound. He has been compliant with his dressing left clean dry and intact. He denies any strikethrough. He denies getting it wet. He denies trauma. Denies constitutional symptoms. No other pedal complaints at this time. Objective Data Objective Data Vital Signs: Vital Signs Temp Pulse Resp BP O2 Del Method O2 Flow Rate 96.9 F L 91 20 H 112/74 Nasal Cannula 3 10/14/23 15:11 10/14/23 15:11 10/14/23 15:11 10/14/23 15:11 10/07/23 11:17 09/17/23 00:46 Oxygen Flow Rate (L/min) 3 Oxygen Delivery Method Nasal Cannula Weight: 72.575 kg Body Mass Index (BMI) 23.6 Physical Exam Narrative Vascular: PT, peroneal arteries are biphasic on Doppler. AT and DP are monophasic on Doppler. CFT is 4 seconds. Nonpitting edema appreciated to the left lower extremity. Skin temperature gradient is warm to cool from proximal ankle to distal digits bilateral. Neurological: Light touch intact. Protective sensation is intact. Patient response to painful stimuli. Dermatological: Full-thickness ulceration left foot measuring 1.4 x 0.4 x 0.5 cm. no malodor or probe to bone. Excisional debridement down to and including subcutaneous tissue of the left lateral full-thickness ulceration with a number 3 mm dermal curette without incident. Predebridement measurement was 1.0 x 0.2 x 0.2 cm. Postdebridement measurement is 1.4 x 0.4 x 0.5 cm. Epifix 2.0 x 2.0 cm graft was applied to the left full-thickness ulceration with 100% use. 8th application. The graft site was free and clear of any infection. The wound/skin graft substitute was dressed with nonadherent bandage secured in place with Steri-Strips followed by bolster dressing as well as a double layer Tubigrip. Musculoskeletal: No palpatory tenderness appreciated to left lower extremity incision or skin graft. No pain with calf compression Debridement Note Debridement Note Debridement Free Text: Excisional debridement down to and including subcutaneous tissue of the left lateral full-thickness ulceration with a number 3 mm dermal curette without incident. Predebridement measurement was 1.0 x 0.2 x 0.2 cm. Postdebridement measurement is 1.4 x 0.4 x 0.5 cm. Epifix 2.0 x 2.0 cm graft was applied to the left full-thickness ulceration with 100% use. 8th application. The graft site was free and clear of any infection. The wound/skin graft substitute was dressed with nonadherent bandage secured in place with Steri-Strips followed by bolster dressing as well as a double layer Tubigrip. Post-Debridement Measurements and Additional Note: Post-Debridement Measurements/Treatment - Nurse 1 - General Ulcer Assessment Start: 09/23/23 15:28 Freq: Status: Active Protocol: BRUCE.JACOBO Activity Type Activity Date Activity User E-sign Co-sign Detail Recorded Client Recorded Date Recorded By Document 09/23/23 15:31 DL [id number] 09/23/23 15:38 DL Document 09/30/23 11:38 GM 09/30/23 11:43 Document 10/07/23 11:17 [id number] 10/07/23 11:19 Document 10/14/23 15:11 DL [id number] 10/14/23 15:20 DL 09/23/23 09/30/23 10/07/23 15:31 11:38 11:17 - Today's Visit Information Type of service Follow-up Visit Follow-up Visit Follow-up Visit (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 (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 (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 ) ) ) Arrival Mode Ambulatory, Wheelchair Wheelchair Walker, Wheelchair Transfer Assistance None None Accompanied by Patient Identification Verified (Name & Yes Yes Yes ) Patient Requires Transmission-Based No No Precautions Height and Weight Body Mass Index (BMI) 23.6 23.6 23.6 BMI Classification Normal Normal Normal Vital Signs Temperature (97.8 F-99.1 F) 98.8 F 97.3 F L 97.3 F L Temperature Source Temporal Temporal Temporal Pulse Rate (60-100) 93 84 85 Pulse Location Monitor Monitor Monitor Respiratory Rate (12-18) 18 18 18 Respiratory rate source Observation Observation Observation Oxygen Delivery Method Nasal Cannula Nasal Cannula Blood Pressure (90/60-120/80) 133/85 H 122/74 H 117/68 Blood Pressure Mean (mm Hg) 101 90 84 Source Monitor Monitor Monitor Position Semi-Fowlers Semi-Fowlers Blood Pressure Location Left Arm Right Arm History Since Last Visit- (Skip if this is Patient's initial visit) Have you changed medications since your No No No last visit? Any new allergies or adverse reactions No No No Had a fall/change in ADL's that may No No No increase risk of falls Signs or symptoms of abuse and/or No No No neglect since last visit Have you been in the hospital since your No No last visit? Has dressing in place as prescribed Yes Yes Yes Has compression in place as prescribed Yes Yes Yes Has offloadiing in place as prescribed Yes Yes Yes Experienced any changes in pain level or No No No management Left Footwear Surgical Shoe Surgical Shoe Surgical Shoe with pressure with pressure with pressure relief insole relief insole relief insole Right Footwear Regular Shoe Regular Shoe Pain Scale: 0-10 Numeric Is Patient Pain Free? 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 ) Arrival Mode Wheelchair Transfer Assistance None Accompanied by Patient Identification Verified (Name & Yes ) Patient Requires Transmission-Based No Precautions Height and Weight Body Mass Index (BMI) 23.6 BMI Classification Normal Vital Signs Temperature (97.8 F-99.1 F) 96.9 F L Temperature Source Temporal Pulse Rate (60-100) 91 Pulse Location Monitor Respiratory Rate (12-18) 20 H Respiratory rate source Observation Oxygen Delivery Method Blood Pressure (90/60-120/80) 112/74 Blood Pressure Mean (mm Hg) 86 Source Monitor Position Blood Pressure Location History Since Last Visit- (Skip if this is Patient's initial visit) Have you changed medications since your No last visit? Any new allergies or adverse reactions No Had a fall/change in ADL's that may No increase risk of falls Signs or symptoms of abuse and/or No neglect since last visit Have you been in the hospital since your No last visit? Has dressing in place as prescribed Yes Has compression in place as prescribed No Has offloadiing in place as prescribed Yes Experienced any changes in pain level or No management Left Footwear Right Footwear Pain Scale: 0-10 Numeric Is Patient Pain Free? Yes WC - Nurse 1 - General Ulcer Measurement Start: 09/23/23 15:28 Freq: Status: Active Protocol: Activity Type Activity Date Activity User E-sign Co-sign Detail Recorded Client Recorded Date Recorded By Document 09/23/23 15:31 DL [email or web address] 09/23/23 15:38 DL Document 09/30/23 11:38 [facility] 09/30/23 11:43 Document 10/07/23 11:17 [id number] 10/07/23 11:19 Document 10/14/23 15:11 DL [id number] 10/14/23 15:20 DL 09/23/23 09/30/23 10/07/23 15:31 11:38 11:17 Wound Center Nurse 1 1. L Lateral foot POST-OP -Current Size (cm) - Length 0.8 0.5 0.5 -Current Size (cm) - Width 2 2.8 1.5 -Current Size (cm) - Depth 0.1 0.3 0.2 -Total Square Cm 1.6 1.40 0.75 -Date of Last Picture (Recall this 10/07/23 field) -Photo Taken Yes -Epithelialization Small 1-33% -Tunneling No -Undermining/Tunneling No -Circular Undermining No -Exudate Amt Medium Medium Small -Exudate Type Serosanguineous Serosanguineous Serous -Wound Margin Distinct, Distinct, Distinct, Outline Outline Outline Attached Attached Attached -Granulation Amt Medium (34-66%) Large (67-100%) Small (1-33%) -Granulation Quality Red [place] Pale,[place] -Slough/Fibrin Yes -Necrosis Amt Medium (34-66%) -Necrotic Tissue Type Adherent Slough Adherent Slough -Structure Exposed N/A -Texture (Terri-wound Skin Appearance) Scarring Assessed Assessed -Moisture (Terri-wound Skin Appearance) Maceration Assessed, Assessed, Maceration Maceration -Color (Terri-wound Skin Appearance) No Abnormality Assessed Assessed -Temperature (Terri-wound Skin No Abnormality No Abnormality No Abnormality Appearance) (Pt Warm) (Pt Warm) (Pt Warm) -Tenderness on Palpation (Terri-wound No Yes Skin Appearance) -Ulcer Cleansing Soap and Water Soap and Water Soap and Water -Foul Odor after Cleansing No -Anesthetic Used 5% Lidocaine 5% Lidocaine 5% Lidocaine Gel Gel Gel Left Calf (cm) 26.5 Left Ankle (cm) 17.6 10/14/23 15:11 Wound Center Nurse 1 1. L Lateral foot POST-OP -Current Size (cm) - Length 0.8 -Current Size (cm) - Width 0.4 -Current Size (cm) - Depth 0.2 -Total Square Cm 0.32 -Date of Last Picture (Recall this field) -Photo Taken -Epithelialization -Tunneling -Undermining/Tunneling -Circular Undermining -Exudate Amt Small -Exudate Type Serosanguineous -Wound Margin Distinct, Outline Attached -Granulation Amt Small (1-33%) -Granulation Quality Pale -Slough/Fibrin -Necrosis Amt Small (1-33%) -Necrotic Tissue Type Adherent Slough -Structure Exposed N/A -Texture (Terri-wound Skin Appearance) Scarring -Moisture (Terri-wound Skin Appearance) Dry/Scaly -Color (Terri-wound Skin Appearance) No Abnormality -Temperature (Terri-wound Skin No Abnormality Appearance) (Pt Warm) -Tenderness on Palpation (Terri-wound Skin Appearance) -Ulcer Cleansing Soap and Water -Foul Odor after Cleansing No -Anesthetic Used 5% Lidocaine Gel Left Calf (cm) 26 Left Ankle (cm) 17.8 WC - Nurse 2 - General Ulcer CM Notes Start: 09/23/23 15:28 Freq: Status: Active Protocol: Activity Type Activity Date Activity User E-sign Co-sign Detail Recorded Client Recorded Date Recorded By Document 09/23/23 15:51 000 09/23/23 15:55 Document 09/30/23 11:46 0000 09/30/23 11:52 Document 10/07/23 11:30 [id number] 10/07/23 11:36 Document 10/14/23 15:36 [id number] 10/14/23 15:44 09/23/23 09/30/23 10/07/23 15:51 11:46 11:30 Wound Center Nurse 2 1. L Lateral foot POST-OP -Time 15:53 11:50 11:35 -Correct Patient Yes Yes Yes -Correct Side, Site, Position Yes Yes Yes -Correct Procedure Yes Yes Yes -Procedure Performed Yes Yes Yes -Type of Procedure Debridement Debridement Debridement -Clinical Debridement Muscle / Fascia Muscle / Fascia Subcutaneous -Tissue Removed Muscle,Fascia Muscle,Fascia Subcutaneous -Post Debridement (cm) - Length 2.9 2.1 1.7 -Post Debridement (cm) - Width 0.7 0.6 0.5 -Post Debridement (cm) - Depth 1.1 0.7 0.6 -Total Square (Post) (cm) 2.03 1.26 0.85 -Area of Debridement (cm) - Length 2.9 2.1 1.7 -Area of Debridement (cm) - Width 0.7 0.6 0.5 -Total Square (Area) (cm) 2.03 1.26 0.85 -Tunneling No No No -Undermining/Tunneling No No No -Circular Undermining No No No -Wound/Ulcer Outcome Not Healed Not Healed Not Healed -Ulcer Cleansing Rinsed/ Rinsed/ Rinsed/ Irrigated with Irrigated with Irrigated with Saline Saline Saline -Foul Odor after Cleansing No No No -Bioengineered Tissue Yes Yes Yes -Type of Bioengineered Tissue Epicord Epicord Epifix -Expiration Date 12/18/27 12/18/27 05/17/28 -Product Lot Number [id number] [id number] -Percent Used 100 100 100 -Lot number of Saline Used [id number] -Bleeding Controlled with Pressure Pressure Pressure -Treatment Response Procedure Procedure Procedure Tolerated Well Tolerated Well Tolerated Well -Offloading Yes Yes Yes -Type of Offloading Surgical Shoe Surgical Shoe Surgical Shoe -Debridement - Subq, 1st 20sq cm No No -Debridement - Muscle / Fascia, 1st No No 20sq cm -Apply Skin Sub - each addt'l 25 sq cm 1 - Legs -Apply Skin Sub - 1st 25 sq cm - Feet 1 1 -Epicord (per sq cm) 6 6 -Epifix (per sq cm) 4 Pain Scale: 0-10 Numeric Is Patient Pain Free? Yes Yes Yes 10/14/23 15:36 Wound Center Nurse 2 1. L Lateral foot POST-OP -Time 15:36 -Correct Patient Yes -Correct Side, Site, Position Yes -Correct Procedure Yes -Procedure Performed Yes -Type of Procedure Debridement -Clinical Debridement Subcutaneous -Tissue Removed Subcutaneous -Post Debridement (cm) - Length 1.4 -Post Debridement (cm) - Width 0.4 -Post Debridement (cm) - Depth 0.5 -Total Square (Post) (cm) 0.56 -Area of Debridement (cm) - Length 1.4 -Area of Debridement (cm) - Width 0.4 -Total Square (Area) (cm) 0.56 -Tunneling No -Undermining/Tunneling No -Circular Undermining No -Wound/Ulcer Outcome Not Healed -Ulcer Cleansing Rinsed/ Irrigated with Saline -Foul Odor after Cleansing No -Bioengineered Tissue Yes -Type of Bioengineered Tissue Epifix -Expiration Date 07/18/27 -Product Lot Number [id number] -Percent Used 100 -Lot number of Saline Used [id number] -Bleeding Controlled with Pressure -Treatment Response Procedure Tolerated Well -Offloading Yes -Type of Offloading Surgical Shoe -Debridement - Subq, 1st 20sq cm No -Debridement - Muscle / Fascia, 1st 20sq cm -Apply Skin Sub - each addt'l 25 sq cm - Legs -Apply Skin Sub - 1st 25 sq cm - Feet 1 -Epicord (per sq cm) -Epifix (per sq cm) 4 Pain Scale: 0-10 Numeric Is Patient Pain Free? Yes WC - Nurse 3 - General Ulcer D/C NN Start: 09/23/23 15:28 Freq: Status: Active Protocol: Activity Type Activity Date Activity User E-sign Co-sign Detail Recorded Client Recorded Date Recorded By Document 09/23/23 16:03 KW fcg 09/23/23 16:04 KW Document 09/30/23 11:59 KW asfd 09/30/23 12:00 KW Document 10/07/23 11:51 GM [id number] 10/07/23 11:57 GM 09/23/23 09/30/23 10/07/23 16:03 11:59 11:51 Wound Care Center Nurse 3 1. L Lateral foot POST-OP -Ulcer Cleansing Not Cleansed -Foul Odor after Cleansing No -Negative Pressure Wound Therapy Continue Continue -Setting (mmHg) 125 125 -Negative Pressure is Continuous Continuous -Primary Dressing Covered/Secured with Dry Gauze & Roll Gauze, Secured with Tape -NPWT Application Charge NPWT & NPWT & Debridement (nc Debridement (nc ) ) Left -Lotion applied to leg before No compression wrap -Compression Wrap Thad Wrap -Tubular Bandage Single Layer -Size of Tubigrip Used Size D -Size D ($) 1 suzanne -Compression Wrap Thad Wrap Pain Scale: 0-10 Numeric Is Patient Pain Free? Yes Yes Yes WC - Visit Discharge Discharge Condition Stable Stable Stable Ambulatory Status Wheelchair Wheelchair Wheelchair Transportation Private Auto Private Auto Private Auto Accompanied by Medication Reconcilliation completed & No No provided to patient/care provider Clinical Summary of Care Provided Yes Yes Yes Assessment/Plan Assessment/Plan (1) Non-pressure chronic ulcer of other part of left foot with fat layer exposed: CODE(S): L97.522 - Non-pressure chronic ulcer of other part of left foot with fat layer exposed PLAN: Patient was examined and evaluated. All findings were discussed with the patient. All questions were answered to the patient's satisfaction. Excisional debridement down to and including subcutaneous tissue of the left lateral full-thickness ulceration with a number 3 mm dermal curette without incident. Predebridement measurement was 1.0 x 0.2 x 0.2 cm. Postdebridement measurement is 1.4 x 0.4 x 0.5 cm. Epifix 2.0 x 2.0 cm graft was applied to the left full-thickness ulceration with 100% use. 8th application. The graft site was free and clear of any infection. The wound/skin graft substitute was dressed with nonadherent bandage secured in place with Steri-Strips followed by bolster dressing as well as a double layer Tubigrip. Follow-up at the wound care center with Dr. Guaman in 1 week. (2) Other specified peripheral vascular diseases: CODE(S): I73.89 - Other specified peripheral vascular diseases
== END 2023-10-17 23:59 | disposition home or self-care (01) ==
LOC: WC 15:15
PROVIDERS: PCP Family Medicine; Referring Provider Podiatrist Foot & Ankle Surgery; Visit Provider Podiatrist Foot & Ankle Surgery
DX: T81.9XXA Unspecified complication of procedure, initial encounter (principal); L97.522 Non-pressure chronic ulcer of other part of left foot with fat layer exposed; Y83.8 Other surgical procedures as the cause of abnormal reaction of the patient, or of later complication, without mention of misadventure at the time of the procedure; I73.89 Other specified peripheral vascular diseases; Z79.01 Long term (current) use of anticoagulants; Z79.82 Long term (current) use of aspirin; Z79.52 Long term (current) use of systemic steroids; Z79.899 Other long term (current) drug therapy
CPT/HCPCS: 15272; 15275; Q4186; Q4187

== ENCOUNTER 2023-10-28 15:30 | Outpatient (RCR) | payer MEDICARE, SELFPAY ==
[2023-10-18 00:50] VITALS: BP 96/50; PULSE 77; RESP 20; TEMP 36.8; BMI 23.6
[2023-10-21 16:07] VITALS: BP 136/76; PULSE 82; RESP 16; TEMP 36.3; BMI 23.6
--- NOTE | 2023-10-21 16:51 | PN.PCM_ITS ---
History of Present Illness Date of Service: 10/21/23 Chief Complaint: Left foot wound History of Wound: Left foot wound secondary to surgery from outside provider Subjective Subjective Mr. Oliva is a 73-year-old diabetic male presenting with [facility] today for follow-up evaluation of full-thickness wound to the lateral aspect of the left foot with amniotic skin graft substitute. He has left his dressing clean dry and intact. He denies getting it wet. Denies any pain to left lower extremity. Denies trauma. Denies constitutional symptoms. No other pedal complaints at this time. Objective Data Objective Data Vital Signs: Vital Signs Temp Pulse Resp BP O2 Flow Rate 97.3 F L 82 16 136/76 H 3 10/21/23 16:07 10/21/23 16:07 10/21/23 16:10/21/23 16:07 10/18/23 00:50 Oxygen Flow Rate (L/min) 3 Weight: 72.575 kg Body Mass Index (BMI) 23.6 Physical Exam Narrative Vascular: PT, peroneal arteries are biphasic on Doppler. AT and DP are monophasic on Doppler. CFT is 4 seconds. Nonpitting edema appreciated to the left lower extremity. Skin temperature gradient is warm to cool from proximal ankle to distal digits bilateral. Neurological: Light touch intact. Protective sensation is intact. Patient response to painful stimuli. Dermatological: Full-thickness ulceration left foot measuring 1.3 x 0.4 x 0.4 cm. no malodor or probe to bone. Excisional debridement down to and including subcutaneous tissue of the left lateral full-thickness ulceration with a number 3 mm dermal curette without incident. Predebridement measurement was 1.0 x 0.2 x 0.2 cm. Postdebridement measurement is 1.3 x 0.4 x 0.4 cm. Epifix 18 mm graft was applied to the left full-thickness ulceration with 100% use. 9th application. The graft site was free and clear of any infection. The wound/skin graft substitute was dressed with nonadherent bandage secured in place with Steri-Strips followed by bolster dressing as well as a double layer Tubigrip. Musculoskeletal: No palpatory tenderness appreciated to left lower extremity incision or skin graft. No pain with calf compression Debridement Note Debridement Note Debridement Free Text: Excisional debridement down to and including subcutaneous tissue of the left lateral full-thickness ulceration with a number 3 mm dermal curette without incident. Predebridement measurement was 1.0 x 0.2 x 0.2 cm. Postdebridement measurement is 1.3 x 0.4 x 0.4 cm. Epifix 18 mm graft was applied to the left full-thickness ulceration with 100% use. 9th application. The graft site was free and clear of any infection. The wound/skin graft substitute was dressed with nonadherent bandage secured in place with Steri-Strips followed by bolster dressing as well as a double layer Tubigrip. 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 ) Arrival Mode Wheelchair Patient Identification Verified (Name & Yes ) Safety Precautions Fall Prevention Height and Weight Body Mass Index (BMI) 23.6 BMI Classification Normal Vital Signs Temperature (97.8 F-99.1 F) 97.3 F L Temperature Source Temporal Pulse Rate (60-100) 82 Pulse Location Monitor Respiratory Rate (12-18) 16 Respiratory rate source Observation Blood Pressure (90/60-120/80) 136/76 H Blood Pressure Mean (mm Hg) 96 Source Monitor Position Sitting Blood Pressure Location Right Arm History Since Last Visit- (Skip if this is Patient's initial visit) Have you changed medications since your No last visit? Any new allergies or adverse reactions No Had a fall/change in ADL's that may No increase risk of falls Signs or symptoms of abuse and/or No neglect since last visit Have you been in the hospital since your No last visit? Has dressing in place as prescribed Yes Has compression in place as prescribed Yes Has offloadiing in place as prescribed Yes Experienced any changes in pain level or No management Pain Scale: 0-10 Numeric Is Patient Pain Free? Yes - Nurse 1 - General Ulcer Measurement Start: 10/21/23 16:07 Freq: Status: Active Protocol: Activity Type Activity Date Activity User E-sign Co-sign Detail Recorded Client Recorded Date Recorded By Document 10/21/23 16:07 URIEL [id number] 10/21/23 16:09 10/21/23 16:07 Wound Center Nurse 1 1. L Lateral foot POST-OP -Current Size (cm) - Length 1 -Current Size (cm) - Width 0.3 -Current Size (cm) - Depth 0.2 -Total Square Cm 0.3 -Epithelialization Small 1-33% -Tunneling No -Undermining/Tunneling No -Classification - Thickness Full Thickness without Exposed Support Structure -Exudate Amt Small -Exudate Type Serosanguineous -Wound Margin Flat & Intact -Granulation Amt Large (67-100%) -Granulation Quality [place] -Texture (Terri-wound Skin Appearance) No Abnormality -Moisture (Terri-wound Skin Appearance) Maceration -Color (Terri-wound Skin Appearance) No Abnormality -Temperature (Terri-wound Skin No Abnormality Appearance) (Pt Warm) -Tenderness on Palpation (Terri-wound Yes Skin Appearance) -Ulcer Cleansing Rinsed/ Irrigated with Saline -Anesthetic Used 5% Lidocaine Gel WC - Nurse 2 - General Ulcer CM Notes Start: 10/21/23 16:07 Freq: Status: Active Protocol: Activity Type Activity Date Activity User E-sign Co-sign Detail Recorded Client Recorded Date Recorded By Document 10/21/23 16:20 [id number] 10/21/23 16:27 10/21/23 16:20 Wound Center Nurse 2 -Time 16:21 -Correct Patient Yes -Correct Side, Site, Position Yes -Correct Procedure Yes -Procedure Performed Yes -Type of Procedure Debridement -Clinical Debridement Subcutaneous -Tissue Removed Subcutaneous -Post Debridement (cm) - Length 0.3 -Post Debridement (cm) - Width 0.4 -Post Debridement (cm) - Depth 0.4 -Total Square (Post) (cm) 0.12 -Area of Debridement (cm) - Length 0.3 -Area of Debridement (cm) - Width 0.4 -Total Square (Area) (cm) 0.12 -Tunneling No -Undermining/Tunneling No -Circular Undermining No -Wound/Ulcer Outcome Not Healed -Ulcer Cleansing Rinsed/ Irrigated with Saline -Foul Odor after Cleansing No -Bioengineered Tissue Yes -Type of Bioengineered Tissue Epifix 18mm Disc -Expiration Date 05/17/28 -Product Lot Number [id number] -Percent Used 100 -Lot number of Saline Used [id number] -Bleeding Controlled with Pressure -Treatment Response Procedure Tolerated Well -Offloading Yes -Type of Offloading Surgical Shoe -Debridement - Subq, 1st 20sq cm No -Apply Skin Sub - 1st 25 sq cm - Feet 1 -Epifix 18mm Disc 3 Pain Scale: 0-10 Numeric Is Patient Pain Free? Yes WC - Nurse 3 - General Ulcer D/C NN Start: 10/21/23 16:07 Freq: Status: Active Protocol: Activity Type Activity Date Activity User E-sign Co-sign Detail Recorded Client Recorded Date Recorded By Document 10/21/23 16:33 DL [id number] 10/21/23 16:35 DL 10/21/23 16:33 Wound Care Center Nurse 3 1. L Lateral foot POST-OP -Foul Odor after Cleansing No -Other Dressing Epifix -Primary Dressing Covered/Secured with Dry Gauze & Roll Gauze, Secured with Tape Left -Tubular Bandage Single Layer -Size of Tubigrip Used Size D -Size D ($) 1 Treatment Response Procedure Tolerated Well Pain Scale: 0-10 Numeric Is Patient Pain Free? Yes WC - Visit Discharge Discharge Condition Stable Ambulatory Status Ambulatory, Wheelchair Transportation Private Auto Facility Type Home Health Orders Sent Yes Assessment/Plan Assessment/Plan (1) Non-pressure chronic ulcer of other part of left foot with fat layer exposed: CODE(S): L97.522 - Non-pressure chronic ulcer of other part of left foot with fat layer exposed PLAN: Patient was examined and evaluated. All findings were discussed with the patient. All questions were answered to the patient's satisfaction. Excisional debridement down to and including subcutaneous tissue of the left lateral full-thickness ulceration with a number 3 mm dermal curette without incident. Predebridement measurement was 1.0 x 0.2 x 0.2 cm. Postdebridement measurement is 1.3 x 0.4 x 0.4 cm. Epifix 18 mm graft was applied to the left full-thickness ulceration with 100% use. 9th application. The graft site was free and clear of any infection. The wound/skin graft substitute was dressed with nonadherent bandage secured in place with Steri-Strips followed by bolster dressing as well as a double layer Tubigrip. Follow-up at the wound care center with Dr. Guaman in 1 week. (2) Other specified peripheral vascular diseases: CODE(S): I73.89 - Other specified peripheral vascular diseases
[2023-10-28 15:41] VITALS: BP 104/65; PULSE 86; RESP 18; TEMP 36.1; BMI 23.6
--- NOTE | 2023-10-28 16:46 | PN.PCM_ITS ---
History of Present Illness Date of Service: 10/28/23 Chief Complaint: Left foot wound History of Wound: Left foot wound secondary to surgery from outside provider Subjective Subjective Mr. Oliva is a 73-year-old diabetic male presenting with [facility] today for follow-up evaluation of full-thickness wound to the lateral aspect of the left foot with amniotic skin graft substitute. He has left his dressing clean dry and intact. He denies getting it wet. Denies any pain to left lower extremity. Denies trauma. Denies constitutional symptoms. No other pedal complaints at this time. Objective Data Objective Data Vital Signs: Vital Signs Temp Pulse Resp BP O2 Del Method O2 Flow Rate 96.9 F L 86 18 104/65 Nasal Cannula 3 10/28/23 15:41 10/28/23 15:41 10/28/23 15:41 10/28/23 15:41 10/28/23 15:41 10/18/23 00:50 Oxygen Flow Rate (L/min) 3 Oxygen Delivery Method Nasal Cannula Weight: 72.575 kg Body Mass Index (BMI) 23.6 Physical Exam Narrative Vascular: PT, peroneal arteries are biphasic on Doppler. AT and DP are monophasic on Doppler. CFT is 4 seconds. Nonpitting edema appreciated to the left lower extremity. Skin temperature gradient is warm to cool from proximal ankle to distal digits bilateral. Neurological: Light touch intact. Protective sensation is intact. Patient response to painful stimuli. Dermatological: Full-thickness ulceration left foot measuring 1.8 x 0.7 x 0.7 cm. no malodor or probe to bone. Excisional debridement down to and including subcutaneous tissue of the left lateral full-thickness ulceration with a number 3 mm dermal curette without incident. Predebridement measurement was 1.4 x 0.5 x 0.5 cm. Postdebridement measurement is 1.8 x 0.7 x 0.7 cm. Epifix 18 mm graft was applied to the left full-thickness ulceration with 100% use. 10th application. The graft site was free and clear of any infection. The wound/skin graft substitute was dressed with nonadherent bandage secured in place with Steri-Strips followed by bolster dressing as well as a double layer Tubigrip. Musculoskeletal: No palpatory tenderness appreciated to left lower extremity incision or skin graft. No pain with calf compression Debridement Note Debridement Note Debridement Free Text: Excisional debridement down to and including subcutaneous tissue of the left lateral full-thickness ulceration with a number 3 mm dermal curette without incident. Predebridement measurement was 1.4 x 0.5 x 0.5 cm. Postdebridement measurement is 1.8 x 0.7 x 0.7 cm. Epifix 18 mm graft was applied to the left full-thickness ulceration with 100% use. 10th application. The graft site was free and clear of any infection. The wound/skin graft substitute was dressed with nonadherent bandage secured in place with Steri-Strips followed by bolster dressing as well as a double layer Tubigrip. Post-Debridement Measurements and Additional Note: Post-Debridement Measurements/Treatment WC - Nurse 1 - General Ulcer Assessment Start: 10/21/23 16:07 Freq: Status: Active Protocol: CARLOS Activity Type Activity Date Activity User E-sign Co-sign Detail Recorded Client Recorded Date Recorded By Document 10/21/23 16:07 CP [id number] 10/21/23 16:09 CP Document 10/28/23 15:41 KW [id number] 10/28/23 15:49 KW 10/21/23 10/28/23 16:07 15:41 - Today's Visit Information Type of service Follow-up Visit Follow-up Visit (Physician/VISUAL EDUCATION TEACHER (Physician/VISUAL EDUCATION TEACHER ) ) Arrival Mode Wheelchair Wheelchair Accompanied by Patient Identification Verified (Name & Yes Yes ) Safety Precautions Fall Prevention Height and Weight Body Mass Index (BMI) 23.6 23.6 BMI Classification Normal Normal Vital Signs Temperature (97.8 F-99.1 F) 97.3 F L 96.9 F L Temperature Source Temporal Temporal Pulse Rate (60-100) 82 86 Pulse Location Monitor Monitor Respiratory Rate (12-18) 16 18 Respiratory rate source Observation Observation Oxygen Delivery Method Nasal Cannula Blood Pressure (90/60-120/80) 136/76 H 104/65 Blood Pressure Mean (mm Hg) 96 78 Source Monitor Monitor Position Sitting Semi-Fowlers Blood Pressure Location Right Arm Left Arm History Since Last Visit- (Skip if this is Patient's initial visit) Have you changed medications since your No No last visit? Any new allergies or adverse reactions No No Had a fall/change in ADL's that may No No increase risk of falls Signs or symptoms of abuse and/or No No neglect since last visit Have you been in the hospital since your No No last visit? Has dressing in place as prescribed Yes Yes Has compression in place as prescribed Yes Yes Has offloadiing in place as prescribed Yes Yes Experienced any changes in pain level or No No management Left Footwear Surgical Shoe with pressure relief insole Right Footwear Regular Shoe Pain Scale: 0-10 Numeric Is Patient Pain Free? Yes Yes WC - Nurse 1 - General Ulcer Measurement Start: 10/21/23 16:07 Freq: Status: Active Protocol: Activity Type Activity Date Activity User E-sign Co-sign Detail Recorded Client Recorded Date Recorded By Document 10/21/23 16:07 CP [id number] 10/21/23 16:09 CP Document 10/28/23 15:41 KW [id number] 10/28/23 15:49 KW 10/21/23 10/28/23 16:07 15:41 Wound Center Nurse 1 1. L Lateral foot POST-OP -Current Size (cm) - Length 1 1.7 -Current Size (cm) - Width 0.3 0.4 -Current Size (cm) - Depth 0.2 0.2 -Total Square Cm 0.3 0.68 -Date of Last Picture (Recall this 10/28/23 field) -Epithelialization Small 1-33% -Tunneling No -Undermining/Tunneling No Yes -Undermining/Tunneling Starts (O'clock 9 ) -Undermining/Tunneling Ends (O'clock) 12 -Maximum Distance (cm) 0.6 -Classification - Thickness Full Thickness without Exposed Support Structure -Exudate Amt Small Small -Exudate Type Serosanguineous Serosanguineous -Wound Margin Flat & Intact Thickened & Rolled Under -Granulation Amt Large (67-100%) Large (67-100%) -Granulation Quality [place] -Necrosis Amt Small (1-33%) -Necrotic Tissue Type Adherent Slough -Texture (Terri-wound Skin Appearance) No Abnormality Assessed -Moisture (Terri-wound Skin Appearance) Maceration Assessed, Maceration -Color (Terri-wound Skin Appearance) No Abnormality Assessed -Temperature (Terri-wound Skin No Abnormality No Abnormality Appearance) (Pt Warm) (Pt Warm) -Tenderness on Palpation (Terri-wound Yes No Skin Appearance) -Ulcer Cleansing Rinsed/ Soap and Water Irrigated with Saline -Foul Odor after Cleansing No -Anesthetic Used 5% Lidocaine 5% Lidocaine Gel Gel Left Calf (cm) 26 Left Ankle (cm) 18.5 - Nurse 2 - General Ulcer CM Notes Start: 10/21/23 16:07 Freq: Status: Active Protocol: Activity Type Activity Date Activity User E-sign Co-sign Detail Recorded Client Recorded Date Recorded By Document 10/21/23 16:20 [id number] 10/21/23 16:27 Edit Result 10/21/23 16:20 JF (1) 0000 10/21/23 16:56 JF Document 10/28/23 15:57 [id number] 10/28/23 16:05 (1) 1. L Lateral foot POST-OP - Post Debridement (cm) - Length 0.3 => 1.3 - Total Square (Post) (cm) 0.12 => 0.52 - Area of Debridement (cm) - Length 0.3 => 1.3 - Total Square (Area) (cm) 0.12 => 0.52 10/21/23 10/28/23 16:20 15:57 Wound Center Nurse 2 1. L Lateral foot POST-OP -Time 16:21 15:57 -Correct Patient Yes Yes -Correct Side, Site, Position Yes Yes -Correct Procedure Yes Yes -Procedure Performed Yes Yes -Type of Procedure Debridement Debridement -Clinical Debridement Subcutaneous Subcutaneous -Tissue Removed Subcutaneous Subcutaneous -Post Debridement (cm) - Length 1.3 1.8 -Post Debridement (cm) - Width 0.4 0.7 -Post Debridement (cm) - Depth 0.4 0.7 -Total Square (Post) (cm) 0.52 1.26 -Area of Debridement (cm) - Length 1.3 1.8 -Area of Debridement (cm) - Width 0.4 0.7 -Total Square (Area) (cm) 0.52 1.26 -Tunneling No No -Undermining/Tunneling No No -Circular Undermining No No -Wound/Ulcer Outcome Not Healed Not Healed -Ulcer Cleansing Rinsed/ Rinsed/ Irrigated with Irrigated with Saline Saline -Foul Odor after Cleansing No No -Bioengineered Tissue Yes Yes -Type of Bioengineered Tissue Epifix 18mm Epicord Disc -Expiration Date 05/17/28 04/16/28 -Product Lot Number [id number] -Percent Used 100 100 -Lot number of Saline Used [id number] -Bleeding Controlled with Pressure Pressure -Treatment Response Procedure Procedure Tolerated Well Tolerated Well -Offloading Yes Yes -Type of Offloading Surgical Shoe Surgical Shoe -Debridement - Subq, 1st 20sq cm No No -Apply Skin Sub - 1st 25 sq cm - Feet 1 1 -Epicord (per sq cm) 6 -Epifix 18mm Disc 3 Pain Scale: 0-10 Numeric Is Patient Pain Free? Yes Yes - Nurse 3 - General Ulcer D/C NN Start: 10/21/23 16:07 Freq: Status: Active Protocol: Activity Type Activity Date Activity User E-sign Co-sign Detail Recorded Client Recorded Date Recorded By Document 10/21/23 16:33 DL [id number] 10/21/23 16:35 DL Document 10/28/23 16:12 KW [id number] 10/28/23 16:14 KW 10/21/23 10/28/23 16:33 16:12 Wound Care Center Nurse 3 1. L Lateral foot POST-OP -Foul Odor after Cleansing No -Other Dressing Epifix -Primary Dressing Covered/Secured with Dry Gauze & Dry Gauze & Roll Gauze, Roll Gauze, Secured with Secured with Tape Tape Left -Tubular Bandage Single Layer Single Layer -Size of Tubigrip Used Size D Size D -Size D ($) 1 1 Treatment Response Procedure Tolerated Well Pain Scale: 0-10 Numeric Is Patient Pain Free? Yes Yes - Visit Discharge Discharge Condition Stable Stable Ambulatory Status Ambulatory, Ambulatory Wheelchair Transportation Private Auto Private Auto Medication Reconcilliation completed & No provided to patient/care provider Clinical Summary of Care Provided Yes Facility Type Home Health Orders Sent Yes Assessment/Plan Assessment/Plan (1) Non-pressure chronic ulcer of other part of left foot with fat layer exposed: CODE(S): L97.522 - Non-pressure chronic ulcer of other part of left foot with fat layer exposed PLAN: Patient was examined and evaluated. All findings were discussed with the patient. All questions were answered to the patient's satisfaction. Excisional debridement down to and including subcutaneous tissue of the left lateral full-thickness ulceration with a number 3 mm dermal curette without incident. Predebridement measurement was 1.4 x 0.5 x 0.5 cm. Postdebridement measurement is 1.8 x 0.7 x 0.7 cm. Epifix 18 mm graft was applied to the left full-thickness ulceration with 100% use. 10th application. The graft site was free and clear of any infection. The wound/skin graft substitute was dressed with nonadherent bandage secured in place with Steri-Strips followed by bolster dressing as well as a double layer Tubigrip. Follow-up in 1 week the graft will stay on for an additional week. At the end of a 2-week follow-up. We will begin application of Anika where the patient will do this at home every other day and will begin following up biweekly. Follow-up at the wound care center with Dr. Guaman in 1 week. (2) Other specified peripheral vascular diseases: CODE(S): I73.89 - Other specified peripheral vascular diseases
--- NOTE | 2023-10-29 08:42 | WC ---
PHOTO 10/28/23 LEFT LATERAL FOOT
== END 2023-11-16 23:59 | disposition home or self-care (01) ==
LOC: WC 15:30
PROVIDERS: PCP Family Medicine; Referring Provider Podiatrist Foot & Ankle Surgery; Visit Provider Podiatrist Foot & Ankle Surgery
DX: T81.9XXA Unspecified complication of procedure, initial encounter (principal); L97.522 Non-pressure chronic ulcer of other part of left foot with fat layer exposed; Y83.8 Other surgical procedures as the cause of abnormal reaction of the patient, or of later complication, without mention of misadventure at the time of the procedure; I73.89 Other specified peripheral vascular diseases; R60.0 Localized edema; Z79.82 Long term (current) use of aspirin; Z79.52 Long term (current) use of systemic steroids; Z79.01 Long term (current) use of anticoagulants; Z79.899 Other long term (current) drug therapy
CPT/HCPCS: 15275; Q4186; Q4187

== ENCOUNTER 2023-11-04 09:53 | Inpatient (IN) | payer MEDICARE, SELFPAY ==
[2023-11-04] VITALS (19 sets, daily range): BP systolic 125–173; BP diastolic 72–128; PULSE 60–101; RESP 12–26; TEMP 35.9–36.6; O2SAT 91–100; BMI 21.8; BMI 20.6
--- NOTE | 2023-11-04 10:17 | EKG12_ITS ---
Test Reason : SOB Blood Pressure : / mmHG Vent. Rate : 087 BPM Atrial Rate : 087 BPM P-R Int : 162 ms QRS Dur : 090 ms QT Int : 358 ms P-R-T Axes : 073 072 078 degrees QTc Int : 430 ms Normal sinus rhythm Normal ECG Baseline artifact Confirmed by Julian Booker ([id number]), news copy editor KIMBERLEE BENNETT ([id number]) on 11/09/2023 10:21:00 AM Referred By: TB/UG Confirmed By:Julian Booker
[2023-11-04] MEDS: predniSONE 20 MG Tablet 60 MG PO (10:24)
[2023-11-04] MEDS: Ipratropium/Albuterol Sulfate 3 ML AMPUL.NEB INHALATION ×4 (10:24→23:15)
[2023-11-04] MEDS: 0.9% Normal Saline (1000mL) 1,000 ML 999 ML IV (10:26)
[2023-11-04 10:43] LABS: Absolute Lymphocyte Count 3.53 X10^3/uL (0.83-4.51); Absolute Neutrophil Count 8.2 X10^3/uL (2.0-7.7); Basophil% 0.7 % (0-1); Eosinophil# 0.45 X10^3/uL; Eosinophils% 3.3 % (0-5); Hematocrit 42.2 % (40-54); Hemoglobin 12.9 g/dL (13.0-16.5); Lymphocyte # 3.53 X10^3/ul (0.83-4.51); Mean Corp Hgb Conc 30.6 g/dL (32-36); Mean Corpuscular Hgb 29.7 pg (27.0-32.0); Mean Corpuscular Volume 97.2 fL (80-94); Mean Platelet Vol. 9.6 fl (6.2-12.0); Monocyte# 1.09 X10^3/uL; NRBC Flagged by Analyzer 0 % (0-5); Neutrophil # 8.18 X10^3/uL (2.7-7.7); Neutrophil % 60.5 % (47-70); Platelet Count 316 K/mm3 (150-450); RBC Distribution Width CV 14.6 % (11.6-14.6); RBC Distribution Width SD 52.6 fl (35.1-43.9); Red Blood Count 4.34 M/mm3 (4.6-6.2); White Blood Count 13.6 K/mm3 (4.4-11.0)
--- NOTE | 2023-11-04 10:49 | EX.ED.DYSGE1 ---
HPI History of Present Illness Chief Complaint: Shortness of Breath Narrative Narrative: Patient is a 73-year-old male with past medical history of CKD stage III, COPD chronically on 3 L nasal cannula, hypertension, tobacco use who presents to the emergency department the chief complaint of cough, shortness of breath, decreased urine output. Patient states that for the past few days he has noted that he has had worsening shortness of breath. Patient also states that he is having some difficulty urinating and states that he will attempt to go and states that he does not feel like he is completely emptying his bladder he states that his urination more of dribbling in nature. Patient denies any recent sick contacts. [facility] Medical History Other specified peripheral vascular diseases CKD stage 3b, GFR 30-44 ml/min Anemia Chronic kidney disease Chronic anticoagulation History of COPD Insulin resistance Hx of blood clots HTN (hypertension) Asthma COPD (chronic obstructive pulmonary disease) Tobacco dependence syndrome COLD (chronic obstructive lung disease) Home Medications ?Medication ?Instructions ?Recorded ?Last Taken ?Type aspirin 81 mg chewable tablet 81 mg PO DAILY@0800 [facility] 02/03/14 07/06/23 History budesonide-formoterol HFA 160 2 puff PO BID COPD 02/03/14 07/06/23 History mcg-4.5 mcg/actuation aerosol inhaler (Symbicort) albuterol sulfate 90 mcg/actuation 2 puff inhalation Q4H PRN PRN Sob 08/24/18 Unknown History aerosol inhaler &/Or Wheezing apixaban 5 mg tablet 5 mg PO BID BLOOD THINNER 08/24/18 07/06/23 History lisinopril 20 mg tablet 20 mg PO DAILY bp 08/24/18 07/06/23 History metoprolol tartrate 50 mg tablet 50 mg PO BID HTN 08/24/18 07/06/23 History pravastatin 10 mg tablet 10 mg PO QHS HIGH CHOLESTEROL 10/04/22 07/05/23 History sucralfate 1 gram tablet (Carafate) 1 g PO TID GASTRIC ULCERS 30 days 10/24/22 07/06/23 Rx #90 tabs PEP device #1 ea 11/06/22 Unknown Rx folic acid 400 mcg tablet 0.4 mg PO DAILY DIETARY SUPPLEMENT 11/06/22 07/06/23 History prednisone 10 mg tablet 10 mg PO DAILY COPD 90 days #90 01/30/23 07/06/23 Rx tabs cyanocobalamin (vitamin B-12) 100 100 mcg PO DAILY VITAMIN SUPPLEMENT 04/16/23 07/06/23 History mcg tablet (Vitamin B-12) cholecalciferol (vitamin D3) 25 25 mcg PO DAILY DIETARY SUPPLEMENT 05/27/23 07/06/23 History mcg (1,000 unit) capsule (Vitamin D3) meropenem 1 gram intravenous 1 g IV Q12H 42 days 07/09/23 Unknown Rx solution acetaminophen 500 mg tablet 1,000 mg (2 x 500 mg) PO Q8 #0 tabs 07/15/23 Unknown Rx amlodipine 2.5 mg tablet 2.5 mg PO DAILY #0 tabs 07/15/23 Unknown Rx docusate sodium 100 mg capsule 100 mg PO BID #0 caps 07/15/23 Unknown Rx gabapentin 100 mg capsule 200 mg (2 x 100 mg) PO BIDCM #0 07/15/23 Unknown Rx caps pantoprazole 40 mg tablet,delayed 40 mg PO BID #0 tabs 07/15/23 Unknown Rx release pramipexole 0.5 mg tablet 1 mg (2 x 0.5 mg) PO QHS #0 tabs 07/15/23 Unknown Rx sennosides 8.6 mg-docusate sodium 2 tab PO BID PRN PRN Constipation 07/15/23 Unknown Rx 50 mg tablet (Stool #0 tabs Softener-Stimulant Laxative) sodium hypochlorite 0.25 % 1 applic topical DAILY #0 mL 07/15/23 Unknown Rx solution (HySept) ipratropium 0.5 mg-albuterol 3 mg 3 ml inhalation Q4H PRN shortness 10/05/23 Unknown Rx (2.5 mg base)/3 mL nebulization of breath or wheezing #540 mL soln Allergy/AdvReac Type Severity Reaction Status Date / Time azithromycin (From Zithromax) Allergy Swelling Verified 07/10/23 08:13 Penicillins Allergy Hives Verified 07/10/23 08:13 shellfish derived Allergy Hives Verified 07/10/23 08:13 venom-honey bee (bee venom Allergy Hives Verified 07/10/23 08:13 (honey bee)) chocolate flavor AdvReac Diarrhea Verified 07/10/23 08:13 Family History Other Asthma CAD (coronary artery disease) CVA (cerebral vascular accident) Cancer Diabetes Heart disease Hypertension Myocardial infarction Surgical History History of appendectomy Heart valve replaced History of hand surgery H/O neck surgery Social History Smoking Status: Current every day smoker tobacco type: cigarettes Tobacco: How many years used: 62 alcohol intake: current alcohol intake frequency: a few times a week Alcohol type: beer seatbelt use: always ROS ROS ED ROS Narrative Constitutional: Denies any fevers, chills, headaches Cardiovascular: Denies chest pain or palpitations Respiratory: Complains of cough but states that this is not increased from his baseline, diffuse end expiratory wheezing noted bilaterally diminished breath sounds at the bases bilaterally Abdomen: Complains of some abdominal discomfort near his bladder region denies nausea vomit diarrhea : Complains of some difficulty with urinating as noted above denies any hematuria Neurological: Denies numbness, weakness, tingling Musculoskeletal: Denies back pain Skin: Denies rashes or lesions EXAM Physical Exam Narrative Exam Narrative: General: Patient lying in bed rest comfortably did not appear to be in acute distress Head: Atraumatic, normocephalic patient Eyes: PERRL bilaterally, EOMI bilateral, no conjunctival injection noted Neck: Soft, supple, trach midline Cardiovascular: Regular rate and rhythm no murmurs gallops rubs noted Respiratory: Diffuse end expiratory wheezing on exam diminished breath sounds bilaterally at the bases Abdomen: Soft, nondistended, tender to palpation in the suprapubic region no rebound or guarding on exam Extremities: +5/5 strength noted in the bilateral upper and lower extremities, no pedal edema on exam Neurological: Patient follow commands knew that he was at [facility] years 2023 Skin: Warm, dry, intact Const Vital Signs: 11/04/23 09:54 11/04/23 09:58 11/04/23 10:02 Temperature 96.6 F L Temperature Source Temporal Pulse Rate 90 Respiratory Rate 26 H Respiratory Effort Short of Breath Short of Breath Labored Respiratory Depth Shallow Respiratory Pattern Tachypnea Blood Pressure 162/79 H Blood Pressure Mean 106 Pulse Ox 99 Oxygen Delivery Method Room Air Nasal Cannula Oxygen Flow Rate (L/min) 11/04/23 10:17 11/04/23 10:30 11/04/23 10:54 Temperature Temperature Source Pulse Rate 79 82 Respiratory Rate 16 18 Respiratory Effort Respiratory Depth Respiratory Pattern Normal Blood Pressure Blood Pressure Mean Pulse Ox 97 100 Oxygen Delivery Method Nasal Cannula Nasal Cannula Oxygen Flow Rate (L/min) 3 3 11/04/23 11:00 11/04/23 11:35 11/04/23 12:00 Temperature Temperature Source Pulse Rate 81 85 86 Respiratory Rate 17 12 19 H Respiratory Effort Respiratory Depth Respiratory Pattern Blood Pressure 131/79 H 137/84 H 159/78 H Blood Pressure Mean 96 101 105 Pulse Ox 100 100 Oxygen Delivery Method Nasal Cannula Nasal Cannula Oxygen Flow Rate (L/min) 3 2 11/04/23 12:09 11/04/23 13:00 Temperature Temperature Source Pulse Rate 85 60 Respiratory Rate 14 21 H Respiratory Effort Respiratory Depth Respiratory Pattern Blood Pressure 159/78 H 153/128 H Blood Pressure Mean 105 136 Pulse Ox 98 96 Oxygen Delivery Method Nasal Cannula Nasal Cannula Oxygen Flow Rate (L/min) 1 1 MDM MDM MDM Narrative Medical decision making narrative: Patient is a 73-year-old male who presented to the emergency department chief complaint of cough and shortness of breath as well as some difficulty urinating as noted above. On the differential diagnose includes not limited to COPD exacerbation, pneumonia, UTI, ACS, BPH with urinary retention. Once workup is obtained reviewed he will be reevaluated. Patient will be given DuoNeb he already received 1 prehospital and will be given prednisone 60 mg orally. Patient CBC was significant for leukocytosis of 13,000, hemoglobin of 12.9 was stable compared to previous blood draws, platelet count was noted be normal at 316. Patient's sodium normal at 140, potassium normal at 4.3, creatinine was elevated 2.06 he does have underlying chronic kidney disease baseline is around 1.43, lactic acid normal at 1.1. Patient troponin normal at 11 with a delta troponin obtained normal at 12, EKG reviewed showed normal sinus rhythm with a rate of [address] changes noted. Patient proBNP normal at 64, urinalysis did not reveal any evidence of infection. Patient's chest x-ray reviewed and showed no acute cardiopulmonary processes. At this point time do believe the patient will require admission for COPD exacerbation and pneumonia. Patient states that he does have allergies to penicillin and azithromycin therefore he will be given Levaquin. Did discuss case with hospitalist who states that they will come down and evaluate the patient at bedside Dr. Lott. On evaluation by Dr. Lott he states that he will admit the patient for further evaluation management of his pneumonia and COPD exacerbation. Patient notified is agreeable this plan all question concerns answered at bedside. Lab Data Labs: Laboratory Results - last 24 hr 11/04/23 11/04/23 11/04/23 10:05 10:55 11:09 WBC 13.6 H RBC 4.34 L Hgb 12.9 L Hct 42.2 MCV 97.2 H MCH 29.7 MCHC 30.6 L RDW Std Deviation 52.6 H RDW Coeff of Meek 14.6 Plt Count 316 MPV 9.6 Immature Gran % (Auto) 1.500 H Neut % (Auto) 60.5 Lymph % (Auto) 26.0 [place] % (Auto) 8.0 Eos % (Auto) 3.3 Baso % (Auto) 0.7 Absolute Neuts (auto) 8.2 H Absolute Lymphs (auto) 3.53 Nucleated RBC % 0 Sodium 140 Potassium 4.3 Chloride 104 Carbon Dioxide 29.0 Anion Gap 7 BUN 26 H Creatinine 2.06 H Estim Creat Clear Calc 31.08 Est GFR (MDRD) Af Amer 41 L Est GFR (MDRD) Non-Af 34 L BUN/Creatinine Ratio 12.6 Glucose 84 Lactic Acid 1.1 Calcium 9.5 Troponin I High Sens 11 B-Natriuretic Peptide 64.2 Urine Color Yellow Urine Clarity Clear Urine pH 6.0 Ur Specific [place] 1.015 Urine Protein 15 H Urine Glucose (UA) 100 H Urine Ketones Negative Urine Occult Blood Negative Urine Nitrite Negative Urine Bilirubin Negative Urine Urobilinogen Normal Ur Leukocyte Esterase Negative Urine RBC 0 SEEN Urine WBC 0-5 SEEN Ur Squamous Epith Cells 0-5 SEEN Ur Transition Epith Cell 0-5 SEEN Urine Bacteria 1+ Urine Mucus 0 SEEN 11/04/23 12:36 WBC RBC Hgb Hct MCV MCH MCHC RDW Std Deviation RDW Coeff of Meek Plt Count MPV Immature Gran % (Auto) Neut % (Auto) Lymph % (Auto) [place] % (Auto) Eos % (Auto) Baso % (Auto) Absolute Neuts (auto) Absolute Lymphs (auto) Nucleated RBC % Sodium Potassium Chloride Carbon Dioxide Anion Gap BUN Creatinine Estim Creat Clear Calc Est GFR (MDRD) Af Amer Est GFR (MDRD) Non-Af BUN/Creatinine Ratio Glucose Lactic Acid Calcium Troponin I High Sens 12 B-Natriuretic Peptide Urine Color Urine Clarity Urine pH Ur Specific [place] Urine Protein Urine Glucose (UA) Urine Ketones Urine Occult Blood Urine Nitrite Urine Bilirubin Urine Urobilinogen Ur Leukocyte Esterase Urine RBC Urine WBC Ur Squamous Epith Cells Ur Transition Epith Cell Urine Bacteria Urine Mucus Radiography Diagnostic Testing: Clinical Impression(s) from Imaging Studies Chest X-Ray 11/04/23 11:25 IMPRESSION: No radiographic evidence of acute cardiopulmonary disease. Electronically Signed: Lorena Zavala MD at 12:13 EDT , Discharge Plan Triage Chief Complaint: Shortness of Breath Other Complaint: Weakness ED Provider: Mohamud Dotson Dx/Rx/DC Orders Clinical Impression: COPD exacerbation, Pneumonia Prescriptions: No Action prednisone 10 mg tablet 10 mg PO DAILY 90 Days Qty: 90 3RF folic acid 400 mcg tablet 0.4 mg PO DAILY (DME) PEP device See Rx Instructions .ROUTE .MEDSUPPLY Qty: 1 0RF Rx Instructions: with training cyanocobalamin (vitamin B-12) [Vitamin B-12] 100 mcg tablet 100 mcg PO DAILY Patient Comments: TAKE 1 TABLET BY MOUTH EVERY DAY aspirin 81 MG tablet,chewable 81 mg PO DAILY@0800 Patient Comments: [facility] budesonide-formoterol [Symbicort] 1 INHALER inhaler 2 puff PO BID Patient Comments: COPD metoprolol tartrate 50 MG tablet 50 mg PO BID apixaban 5 MG tablet 5 mg PO BID lisinopril 20 MG tablet 20 mg PO DAILY albuterol sulfate 18 GM HFA aerosol inhaler 2 puff inhalation Q4H PRN PRN (Reason: Sob &/Or Wheezing) pravastatin 10 mg tablet 10 mg PO QHS Patient Comments: TAKE 1 TABLET BY MOUTH EVERY DAY cholecalciferol (vitamin D3) [Vitamin D3] 25 mcg (1,000 unit) capsule 25 mcg PO DAILY meropenem 1 gram recon soln 1 g IV Q12H 42 Days Rx Instructions: stop date 08/21/23. Dx: L foot osteo. Weekly bmp, cbc, LFT, and esr. Fax to [phone]. Routine picc care per protocol. pramipexole 0.5 mg Tablet 1 mg PO QHS Qty: 0 0RF sennosides-docusate sodium [Stool Softener-Stimulant Laxat] 8.6-50 mg Tablet 2 tab PO BID PRN PRN (Reason: Constipation) Qty: 0 0RF pantoprazole 40 mg Tablet,Delayed Release (Dr/Ec) 40 mg PO BID Qty: 0 0RF Rx Instructions: x 8 weeks then daily HySept 0.25 % Solution 1 applic topical DAILY Qty: 0 0RF Protocol: *Topical Application Instructions APPLICATION INSTRUCTIONS: left foot wound docusate sodium 100 mg Capsule 100 mg PO BID Qty: 0 0RF gabapentin 100 mg Capsule 200 mg PO BIDCM Qty: 0 0RF amlodipine 2.5 mg Tablet 2.5 mg PO DAILY Qty: 0 0RF acetaminophen 500 mg Tablet 1,000 mg PO Q8 Qty: 0 0RF sucralfate [Carafate] 1 gram tablet 1 g PO TID 30 Days Qty: 90 2RF ipratropium-albuterol 0.5 mg-3 mg(2.5 mg base)/3 mL solution for nebulization 3 ml inhalation Q4H PRN (Reason: shortness of breath or wheezing) Qty: 540 3RF Primary Care Provider: Cherelle Cutler Referrals: Cherelle Cutler DO [Primary Care Provider] - Print Language: Egyptian
[2023-11-04 10:51] LABS: Anion Gap 7 (5-15); BUN 26 mg/dL (7-18); BUN/Creat Ratio 12.6 RATIO (10-20); Calcium,Total 9.5 mg/dL (8.5-10.1); Chloride 104 mmol/L (98-107); Creatinine, Serum 2.06 mg/dL (0.70-1.30); EST Glomerular Filtration Rate 34 mL/min (>60); Est Glom Filt Rate - Afr Amer 41 mL/min (>60); Estimated Creatinine Clearance 31.08 ml/min; Glucose 84 mg/dL (74-106); Potassium 4.3 mmol/L (3.5-5.1); Sodium Level 140 mmol/L (136-145); Troponin-I HS (w/2H Reflex) 11 pg/mL (3.0-78.0)
[2023-11-04 11:04] LABS: BNP,B-Type NATRIURETIC PEPTIDE 64.2 pg/mL (0-100)
[2023-11-04 11:14] LABS: Mucous, Urine 0 SEEN /hpf (<or=2+); Red Blood Cells-Urine 0 SEEN /hpf (0-5)
[2023-11-04 11:17] LABS: Color, Urine Yellow (Yellow); Glucose, Dipstick 100 mg/dl (Normal); Ketone-Dipstick Negative (Negative); Leukocyte Esterase-Dipstick Negative /ul (Negative); Nitrite-Dipstick Negative (Negative); Occult Blood-Urine Negative /ul (Negative); Protein-Dipstick 15 mg/dl (Negative); Specific Gravity, Urine 1.015 (1.002-1.030); Urine Bilirubin Dipstick Negative (Negative); Urine Clarity Clear (Clear); Urine Urobilinogen Normal (Normal)
[2023-11-04 11:23] LABS: Bacteria 1+ /hpf (None Seen); Squamous Epithelial Cells - UA 0-5 SEEN /hpf (0-5); Transitional Epithelial - Ur 0-5 SEEN /hpf (0-5); White Blood Cells 0-5 SEEN /hpf (0-5)
--- NOTE | 2023-11-04 11:25 | RAD_ITS ---
INDICATION: chest pain EXAMINATION/TECHNIQUE: X-RAY - XR Chest 2 Views COMPARISON: July 06, 2023 FINDINGS: LINES/DEVICES: None. LUNGS: The lungs remain hyperinflated. No consolidation, edema or effusion. No pneumothorax. MEDIASTINUM AND CARDIOVASCULAR STRUCTURES: Cardiac silhouette not enlarged. Central airways and mediastinal contour are unremarkable. BONES AND SOFT TISSUES: There are bilateral total shoulder arthroplasties in place. RAD/Chest PA and Lateral IMPRESSION: No radiographic evidence of acute cardiopulmonary disease. Electronically Signed: Lorena Zavala MD at 12:13 EDT ,
[2023-11-04 11:27] LABS: Lactic Acid 1.1 mmol/L (0.4-1.9)
--- NOTE | 2023-11-04 11:29 | ED.RN ---
294 noted during bladder scan
[2023-11-04 12:28] LABS: Reflex Troponin-HS? (from REC) Y
[2023-11-04 13:07] LABS: Troponin-I HS 12 pg/mL (3.0-78.0)
--- NOTE | 2023-11-04 13:32 | PCM.HP.STD ---
HPI - General General Date of Service: 11/04/23 Chief Complaint: Shortness of breath, weakness for last few days. Urinary retention. HPI Narrative DARRYN ROMAN, is a 73 M with multiple comorbidities came to ED predominantly for worsening shortness of breath, generalized weakness for few days. Initially it was mainly on exertion but progressed to dyspnea at rest. Patient has chronic cough and attributes to his smoking with no change in frequency, severity or sputum production. No fever. He denies any chest pain, pressure or tightness. Patient also has urinary retention and felt suprapubic pressure/pain and required a straight catheterization. Abdominal discomfort resolved after straight cath. Had 1 DuoNeb by EMS. As per EMS vitals, blood pressure was low 98/60, heart rate 93/min. Respiratory rate 24/min. In ED patient requires 1 to 2 L of oxygen. [facility] Medical History Other specified peripheral vascular diseases CKD stage 3b, GFR 30-44 ml/min Anemia Chronic kidney disease Chronic anticoagulation History of COPD Insulin resistance Hx of blood clots HTN (hypertension) Asthma COPD (chronic obstructive pulmonary disease) Tobacco dependence syndrome COLD (chronic obstructive lung disease) Home Medications ?Medication ?Instructions ?Recorded ?Last Taken ?Type aspirin 81 mg chewable tablet 81 mg PO DAILY@0800 HEART HEALTH 02/03/14 07/06/23 History budesonide-formoterol HFA 160 2 puff PO BID COPD 02/03/14 07/06/23 History mcg-4.5 mcg/actuation aerosol inhaler (Symbicort) albuterol sulfate 90 mcg/actuation 2 puff inhalation Q4H PRN PRN Sob 08/24/18 Unknown History aerosol inhaler &/Or Wheezing apixaban 5 mg tablet 5 mg PO BID BLOOD THINNER 08/24/18 07/06/23 History lisinopril 20 mg tablet 20 mg PO DAILY bp 08/24/18 07/06/23 History metoprolol tartrate 50 mg tablet 50 mg PO BID HTN 08/24/18 07/06/23 History pravastatin 10 mg tablet 10 mg PO QHS HIGH CHOLESTEROL 10/04/22 07/05/23 History sucralfate 1 gram tablet (Carafate) 1 g PO TID GASTRIC ULCERS 30 days 09/08/23 05/20/24 Rx #90 tabs PEP device #1 ea 11/06/22 Unknown Rx folic acid 400 mcg tablet 0.4 mg PO DAILY DIETARY SUPPLEMENT 11/06/22 07/06/23 History prednisone 10 mg tablet 10 mg PO DAILY COPD 90 days #90 01/30/23 07/06/23 Rx tabs cyanocobalamin (vitamin B-12) 100 100 mcg PO DAILY VITAMIN SUPPLEMENT 04/16/23 07/06/23 History mcg tablet (Vitamin B-12) cholecalciferol (vitamin D3) 25 25 mcg PO DAILY DIETARY SUPPLEMENT 05/27/23 07/06/23 History mcg (1,000 unit) capsule (Vitamin D3) meropenem 1 gram intravenous 1 g IV Q12H 42 days 07/09/23 Unknown Rx solution acetaminophen 500 mg tablet 1,000 mg (2 x 500 mg) PO Q8 #0 tabs 07/15/23 Unknown Rx amlodipine 2.5 mg tablet 2.5 mg PO DAILY #0 tabs 07/15/23 Unknown Rx docusate sodium 100 mg capsule 100 mg PO BID #0 caps 07/15/23 Unknown Rx gabapentin 100 mg capsule 200 mg (2 x 100 mg) PO BIDCM #0 07/15/23 Unknown Rx caps pantoprazole 40 mg tablet,delayed 40 mg PO BID #0 tabs 07/15/23 Unknown Rx release pramipexole 0.5 mg tablet 1 mg (2 x 0.5 mg) PO QHS #0 tabs 07/15/23 Unknown Rx sennosides 8.6 mg-docusate sodium 2 tab PO BID PRN PRN Constipation 07/15/23 Unknown Rx 50 mg tablet (Stool #0 tabs Softener-Stimulant Laxative) sodium hypochlorite 0.25 % 1 applic topical DAILY #0 mL 07/15/23 Unknown Rx solution (HySept) ipratropium 0.5 mg-albuterol 3 mg 3 ml inhalation Q4H PRN shortness 10/05/23 Unknown Rx (2.5 mg base)/3 mL nebulization of breath or wheezing #540 mL soln Allergy/AdvReac Type Severity Reaction Status Date / Time azithromycin (From Zithromax) Allergy Swelling Verified 07/10/23 08:13 Penicillins Allergy Hives Verified 07/10/23 08:13 shellfish derived Allergy Hives Verified 07/10/23 08:13 venom-honey bee (bee venom Allergy Hives Verified 07/10/23 08:13 (honey bee)) chocolate flavor AdvReac Diarrhea Verified 07/10/23 08:13 Family History Other Asthma CAD (coronary artery disease) CVA (cerebral vascular accident) Cancer Diabetes Heart disease Hypertension Myocardial infarction Surgical History History of appendectomy Heart valve replaced History of hand surgery H/O neck surgery Social History Smoking Status: Current every day smoker tobacco type: cigarettes Tobacco: How many years used: 62 alcohol intake: current alcohol intake frequency: a few times a week Alcohol type: beer seatbelt use: always ROS ROS Narrative Constitutional: Reports fatigue and weakness. No fever. HEENT: Reports systems reviewed and no addt'l complaints, except as documented Respiratory/Chest: Mild wheezing rest as described in HPI CVS: No chest pain pressure or tightness. Mild chest congestion. Gastrointestinal: Denies coffee ground emesis, hematemesis or vomiting Genitourinary: Suprapubic pain/discomfort. Patient had urinary retention. Required straight cath in the ED. Musculoskeletal: Denies acute joint pain or limited range of motion. No acute injury Neurologic: Denies seizure-like symptoms. skin: No ulcer. No rash Endocrinology: Reports systems reviewed and no addt'l complaints, except as documented Hematologic/Lymphatic: Reports systems reviewed and no addt'l complaints, except as documented Rest 14 ROS are negative except as mentioned in HPI Vital Signs Vital Signs Vital Signs: 11/04/23 09:54 11/04/23 09:58 11/04/23 10:02 Temperature 96.6 F L Temperature Source Temporal Pulse Rate 90 Respiratory Rate 26 H Respiratory Effort Short of Breath Short of Breath Labored Respiratory Depth Shallow Respiratory Pattern Tachypnea Blood Pressure 162/79 H Blood Pressure Mean 106 Pulse Ox 99 Oxygen Delivery Method Room Air Nasal Cannula Oxygen Flow Rate (L/min) 11/04/23 10:17 11/04/23 10:30 11/04/23 10:54 Temperature Temperature Source Pulse Rate 79 82 Respiratory Rate 16 18 Respiratory Effort Respiratory Depth Respiratory Pattern Normal Blood Pressure Blood Pressure Mean Pulse Ox 97 100 Oxygen Delivery Method Nasal Cannula Nasal Cannula Oxygen Flow Rate (L/min) 3 3 11/04/23 11:00 11/04/23 11:35 11/04/23 12:00 Temperature Temperature Source Pulse Rate 81 85 86 Respiratory Rate 17 12 19 H Respiratory Effort Respiratory Depth Respiratory Pattern Blood Pressure 131/79 H 137/84 H 159/78 H Blood Pressure Mean 96 101 105 Pulse Ox 100 100 Oxygen Delivery Method Nasal Cannula Nasal Cannula Oxygen Flow Rate (L/min) 3 2 11/04/23 12:09 11/04/23 13:00 Temperature Temperature Source Pulse Rate 85 60 Respiratory Rate 14 21 H Respiratory Effort Respiratory Depth Respiratory Pattern Blood Pressure 159/78 H 153/128 H Blood Pressure Mean 105 136 Pulse Ox 98 96 Oxygen Delivery Method Nasal Cannula Nasal Cannula Oxygen Flow Rate (L/min) 1 1 Weight Weight: 147 lb 4.301 oz Body Mass Index (BMI) 21.8 Physical Exam Narrative General: Alert, Oriented x3, Cooperative HEENT: Atraumatic, PERRLA, EOMI, Normocephalic Oral: No Gingival or Mucosal Lesions/ Ulcerations Neck: Supple, No JVD, Negative Carotid Bruits Chest wall/Lungs: Air entry diminished in bilateral lung bases. Mild bilateral expiratory rhonchi. Cardiovascular: Regular rate, Regular Rhythm, Normal S1, Normal S2, No M/G/R Abdomen: Bowel Sounds Present, Soft, Non Tender, Non-Distended : Urinary retention. No dysuria. No renal angle tenderness. No suprapubic tenderness. Extremities: No edema, Capillary Refill Less than 3 Seconds Skin: No rashes, No breakdown Musculoskeletal: No Tenderness to Palpation of Joints or Extremities Neurological: Cranial nerves II-XII grossly intact, DTR 2+/4. No acute focal neurological deficit. Psych/Mental Status: Normal Affect, Appropriate. Results Lab / Micro Data 11/04/23 10:05 11/04/23 10:05 Labs: Laboratory Results - last 24 hr 11/04/23 10:05: WBC 13.6 H, RBC 4.34 L, Hgb 12.9 L, Hct 42.2, MCV 97.2 H, MCH 29.7, MCHC 30.6 L, RDW Std Deviation 52.6 H, RDW Coeff of Meek 14.6, Plt Count 316, MPV 9.6, Immature Gran % (Auto) 1.500 H, Neut % (Auto) 60.5, Lymph % (Auto) 26.0, [place] % (Auto) 8.0, Eos % (Auto) 3.3, Baso % (Auto) 0.7, Absolute Neuts (auto) 8.2 H, Absolute Lymphs (auto) 3.53, Nucleated RBC % 0, Sodium 140, Potassium 4.3, Chloride 104, Carbon Dioxide 29.0, Anion Gap 7, BUN 26 H, Creatinine 2.06 H, Estim Creat Clear Calc 31.08, Est GFR (MDRD) Af Amer 41 L, Est GFR (MDRD) Non-Af 34 L, BUN/Creatinine Ratio 12.6, Glucose 84, Calcium 9.5, Troponin I High Sens 11, B-Natriuretic Peptide 64.2 11/04/23 10:55: Lactic Acid 1.1 11/04/23 11:09: Urine Color Yellow, Urine Clarity Clear, Urine pH 6.0, Ur Specific [place] 1.015, Urine Protein 15 H, Urine Glucose (UA) 100 H, Urine Ketones Negative, Urine Occult Blood Negative, Urine Nitrite Negative, Urine Bilirubin Negative, Urine Urobilinogen Normal, Ur Leukocyte Esterase Negative, Urine RBC 0 SEEN, Urine WBC 0-5 SEEN, Ur Squamous Epith Cells 0-5 SEEN, Ur Transition Epith Cell 0-5 SEEN, Urine Bacteria 1+, Urine Mucus 0 SEEN 11/04/23 12:36: Troponin I High Sens 12 Imaging Radiology Impression Chest X-Ray 11/04/23 11:25 IMPRESSION: No radiographic evidence of acute cardiopulmonary disease. Electronically Signed: Lorena Zavala MD at 12:13 EDT , Assessment & Plan Assessment/Plan (1) COPD exacerbation: PLAN: Plan This is a 73-year-old gentleman admitted for shortness of breath and cough which is not new for few days. Patient is still smokes about half pack per day, cut down from 4 packs/day in the past. 1. COPD exacerbation as change in shortness of breath/dyspnea at rest: Patient is being admitted in PCU. Chest x-ray individually reviewed does not show acute abnormality. Twelve-lead EKG shows NSR at 87 bpm, QTc 430 ms. Patient is being managed on scheduled bronchodilator, IV Solu-Medrol, Mucinex, incentive spirometry and Pep. Triple PCR for SARS-CoV-2, flu and RSV is pending. Blood culture and sputum culture ordered. Empirically on IV Zithromax. Mild leukocytosis with immature granulocytes 1.5%. 2. Urinary retention: Patient required straight cath. UA is benign with glucosuria, nitrite and LE negative. WBC 0-5 cells, squamous cells 0-5 cells. urine culture ordered. Does not need antibiotic for UTI as suspicion is very low 3. Left foot chronic wound with history of osteomyelitis: Patient follows in wound center with transformer builder Dr. Guaman. Fortunately debridement of ulcer 1.8 x 0.7 x 0.7 cm on the left lateral foot. Patient was admitted in June 2023 for acute osteomyelitis of left foot. Continue antibiotic. 4. Chronic anemia, mild macrocytic: H&H 12.9/42%. Platelet count 316,000. 5. CKD stage IIIb: BUN/creatinine 2.06. Estimated creatinine clearance 31 mL/min. Hold lisinopril. Avoid nephrotoxic medications. 6. 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 6. Hypertension: Blood pressure slightly elevated Home medication reviewed. 7. Dyslipidemia: On home pravastatin. Living will/advanced directive/end of life care: Patient does not have living will or advanced directive. His is next of kin. After discussion of benefits/risks procedures involved with full code, DNR CC arrest and DNR CC, the patient opted for full code. Patient does want artificial life support including intubation, tube feed, ventilator and/chest compression, central venous catheter, vasopressor and DC shock if needed Total time spent in [id number] encounter in discussion of advanced directive 17 minutes. Laboratory Results 11/04/23 10:05: WBC 13.6 H, RBC 4.34 L, Hgb 12.9 L, Hct 42.2, MCV 97.2 H, MCH 29.7, MCHC 30.6 L, RDW Std Deviation 52.6 H, RDW Coeff of Meek 14.6, Plt Count 316, MPV 9.6, Immature Gran % (Auto) 1.500 H, Neut % (Auto) 60.5, Lymph % (Auto) 26.0, [place] % (Auto) 8.0, Eos % (Auto) 3.3, Baso % (Auto) 0.7, Absolute Neuts (auto) 8.2 H, Absolute Lymphs (auto) 3.53, Nucleated RBC % 0, Sodium 140, Potassium 4.3, Chloride 104, Carbon Dioxide 29.0, Anion Gap 7, BUN 26 H, Creatinine 2.06 H, Estim Creat Clear Calc 31.08, Est GFR (MDRD) Af Amer 41 L, Est GFR (MDRD) Non-Af 34 L, BUN/Creatinine Ratio 12.6, Glucose 84, Calcium 9.5, Magnesium 2.3, Troponin I High Sens 11, B-Natriuretic Peptide 64.2 11/04/23 10:55: Lactic Acid 1.1 11/04/23 11:09: Urine Color Yellow, Urine Clarity Clear, Urine pH 6.0, Ur Specific [place] 1.015, Urine Protein 15 H, Urine Glucose (UA) 100 H, Urine Ketones Negative, Urine Occult Blood Negative, Urine Nitrite Negative, Urine Bilirubin Negative, Urine Urobilinogen Normal, Ur Leukocyte Esterase Negative, Urine RBC 0 SEEN, Urine WBC 0-5 SEEN, Ur Squamous Epith Cells 0-5 SEEN, Ur Transition Epith Cell 0-5 SEEN, Urine Bacteria 1+, Urine Mucus 0 SEEN 11/04/23 12:36: Troponin I High Sens 12 Clinical Impression(s) from Imaging Studies Chest X-Ray 11/04/23 11:25 IMPRESSION: No radiographic evidence of acute cardiopulmonary disease. Electronically Signed: Lorena Zavala MD at 12:13 EDT , Charges/Coding Visit Charges Inpatient E&M: 42523 Init Hosp L3 Procedures Hospitalists Procedures: 13202 Advncd Care Plan 30 Min
--- NOTE | 2023-11-04 13:34 | NURSING ---
PCU CHELO PNEUMONIA
[2023-11-04 13:48] LABS: Magnesium 2.3 mg/dL (1.6-2.6)
[2023-11-04] MEDS: levoFLOXacin IV 750 MG/150 ML BAG 100 MG IV (14:08)
[2023-11-04] MEDS: 0.9% Normal Saline (1000mL) 1,000 ML 75 ML IV (17:40)
[2023-11-04] MEDS: 0.9% Saline Lock 10 ML Syringe IV ×2 (17:40→20:53)
[2023-11-04] MEDS: Senna/Docusate Sodium 1 Tablet 2 TABLET PO ×2 (18:55→20:49)
[2023-11-04] MEDS: Pravastatin 20 MG Tablet 10 MG PO (20:50)
[2023-11-04] MEDS: Gabapentin 100 MG Capsule 200 MG PO (20:50)
[2023-11-04] MEDS: Pramipexole Di-HCl 1 MG Tablet PO (20:50)
[2023-11-04] MEDS: Acetaminophen 500 MG Tablet 1000 MG PO (20:50)
[2023-11-04] MEDS: Metoprolol Tartrate 50 MG Tablet PO (20:51)
[2023-11-04] MEDS: APIXABAN 5 MG TABLET PO (20:51)
[2023-11-05] VITALS (12 sets, daily range): BP systolic 125–139; BP diastolic 76–84; PULSE 90–97; RESP 16–22; TEMP 35.8–36.6; O2SAT 96–99
[2023-11-05] MEDS: Ipratropium/Albuterol Sulfate 3 ML AMPUL.NEB INHALATION ×6 (02:53→23:16)
[2023-11-05] MEDS: Acetaminophen 500 MG Tablet 1000 MG PO ×3 (06:14→22:13)
[2023-11-05 07:33] LABS: Absolute Lymphocyte Count 0.88 X10^3/uL (0.83-4.51); Absolute Neutrophil Count 9.2 X10^3/uL (2.0-7.7); Basophil# 0.01 X10^3/uL; Basophil% 0.1 % (0-1); Hematocrit 36.4 % (40-54); Hemoglobin 11.3 g/dL (13.0-16.5); Lymphocyte # 0.88 X10^3/ul (0.83-4.51); Lymphocyte % 8.5 % (19-41); Mean Corpuscular Hgb 30.6 pg (27.0-32.0); Mean Corpuscular Volume 98.6 fL (80-94); Mean Platelet Vol. 9.7 fl (6.2-12.0); Monocyte# 0.21 X10^3/uL; NRBC Flagged by Analyzer 0 % (0-5); Neutrophil % 88.3 % (47-70); Platelet Count 302 K/mm3 (150-450); RBC Distribution Width CV 14.5 % (11.6-14.6); RBC Distribution Width SD 52.4 fl (35.1-43.9); Red Blood Count 3.69 M/mm3 (4.6-6.2); White Blood Count 10.4 K/mm3 (4.4-11.0)
[2023-11-05 08:15] LABS: Anion Gap 10 (5-15); BUN 27 mg/dL (7-18); BUN/Creat Ratio 15.2 RATIO (10-20); Calcium,Total 8.9 mg/dL (8.5-10.1); Chloride 109 mmol/L (98-107); Creatinine, Serum 1.78 mg/dL (0.70-1.30); EST Glomerular Filtration Rate 40 mL/min (>60); Est Glom Filt Rate - Afr Amer 49 mL/min (>60); Estimated Creatinine Clearance 34.08 ml/min; Glucose 132 mg/dL (74-106); Potassium 4.8 mmol/L (3.5-5.1); Sodium Level 140 mmol/L (136-145)
--- NOTE | 2023-11-05 09:05 | PN.HOSP_ITS ---
Reason for Visit Reason for Visit: Diagnoses Chronic obstructive pulmonary disease with (acute) exacerbation (11/04/23) Objective Data Objective Data Vital Signs: Vital Signs Temp Pulse Resp BP Pulse Ox O2 Del Method O2 Flow Rate 97.4 F L 91 18 139/84 H 98 Nasal Cannula 2 11/05/23 03:45 11/05/23 07:29 11/05/23 07:29 11/05/23 03:45 11/05/23 07:29 11/05/23 07:29 11/05/23 07:29 Oxygen Flow Rate (L/min) 2 Oxygen Delivery Method Nasal Cannula Weight: 139 lb 8.842 oz Body Mass Index (BMI) 20.6 Intake & Output: Intake and Output for Last 24 Hours 11/03/23 11/04/23 11/05/23 23:59 23:59 23:59 Intake Total 1500 / 1500 1425 / 1425 Output Total 200 / 200 Balance 1300 / 1300 1425 / 1425 Lab / Micro Data 11/05/23 06:38 11/05/23 06:38 Labs: Laboratory Results - last 24 hr 11/04/23 10:05: WBC 13.6 H, RBC 4.34 L, Hgb 12.9 L, Hct 42.2, MCV 97.2 H, MCH 29.7, MCHC 30.6 L, RDW Std Deviation 52.6 H, RDW Coeff of Meek 14.6, Plt Count 316, MPV 9.6, Immature Gran % (Auto) 1.500 H, Neut % (Auto) 60.5, Lymph % (Auto) 26.0, [place] % (Auto) 8.0, Eos % (Auto) 3.3, Baso % (Auto) 0.7, Absolute Neuts (auto) 8.2 H, Absolute Lymphs (auto) 3.53, Nucleated RBC % 0, Sodium 140, Potassium 4.3, Chloride 104, Carbon Dioxide 29.0, Anion Gap 7, BUN 26 H, C reatinine 2.06 H, Estim Creat Clear Calc 31.08, Est GFR (MDRD) Af Amer 41 L, Est GFR (MDRD) Non-Af 34 L, BUN/Creatinine Ratio 12.6, Glucose 84, Calcium 9.5, Magnesium 2.3, Troponin I High Sens 11, B-Natriuretic Peptide 64.2 11/04/23 10:55: Lactic Acid 1.1 11/04/23 11:09: Urine Color Yellow, Urine Clarity Clear, Urine pH 6.0, Ur Specific [place] 1.015, Urine Protein 15 H, Urine Glucose (UA) 100 H, Urine Ketones Negative, Urine Occult Blood Negative, Urine Nitrite Negative, Urine Bilirubin Negative, Urine Urobilinogen Normal, Ur Leukocyte Esterase Negative, Urine RBC 0 SEEN, Urine WBC 0-5 SEEN, Ur Squamous Epith Cells 0-5 SEEN, Ur Transition Epith Cell 0-5 SEEN, Urine Bacteria 1+, Urine Mucus 0 SEEN 11/04/23 12:36: Troponin I High Sens 12 11/05/23 06:38: WBC 10.4, RBC 3.69 L, Hgb 11.3 L, Hct 36.4 L, MCV 98.6 H, MCH 30.6, MCHC 31.0 L, RDW Std Deviation 52.4 H, RDW Coeff of Meek 14.5, Plt Count 302, MPV 9.7, Immature Gran % (Auto) 1.100 H, Neut % (Auto) 88.3 H, Lymph % (Auto) 8.5 L, [place] % (Auto) 2.0, Eos % (Auto) 0.0, Baso % (Auto) 0.1, Absolute Neuts (auto) 9.2 H, Absolute Lymphs (auto) 0.88, Nucleated RBC % 0, Sodium 140, Potassium 4.8, Chloride 109 H, Carbon Dioxide 21.0, Anion Gap 10, BUN 27 H, C reatinine 1.78 H, Estim Creat Clear Calc 34.08, Est GFR (MDRD) Af Amer 49 L, Est GFR (MDRD) Non-Af 40 L, BUN/Creatinine Ratio 15.2, Glucose 132 H, Calcium 8.9 Micro: Microbiology 11/04/23 13:35 Mucosa - Nose SARS-CoV-2, Influenza & RSV (PCR) - Final Radiography Diagnostic Testing: Radiology Impression Chest X-Ray 11/04/23 11:25 IMPRESSION: No radiographic evidence of acute cardiopulmonary disease. Electronically Signed: Lorena Zavala MD at 12:13 EDT , Physical Exam Narrative Seen and examined. Shortness of breath is better but is still not at baseline. Patient has wheezing. Patient stated that he feels mild difficulty in urinating but he can urinate. General: Alert, Oriented x3, Cooperative HEENT: Atraumatic, PERRLA, EOMI, Normocephalic Oral: No Gingival or Mucosal Lesions/ Ulcerations Neck: Supple, No JVD, Negative Carotid Bruits Chest wall/Lungs: Air entry diminished in bilateral lung bases. Mild bilateral expiratory rhonchi. Cardiovascular: Regular rate, Regular Rhythm, Normal S1, Normal S2, No M/G/R Abdomen: Bowel Sounds Present, Soft, Non Tender, Non-Distended : Urinary retention. No dysuria. No renal angle tenderness. No suprapubic tenderness. Extremities: No edema, Capillary Refill Less than 3 Seconds Skin: No rashes, No breakdown Musculoskeletal: No Tenderness to Palpation of Joints or Extremities Neurological: Cranial nerves II-XII grossly intact, DTR 2+/4. No acute focal neurological deficit. Psych/Mental Status: Normal Affect, Appropriate. Assessment & Plan Assessment/Plan (1) COPD exacerbation: PLAN: Plan This is a 73-year-old gentleman admitted for shortness of breath and cough which is not new for few days. Patient is still smokes about half pack per day, cut down from 4 packs/day in the past. 1. COPD exacerbation as change in shortness of breath/dyspnea at rest: Patient is being admitted in PCU. Chest x-ray individually reviewed does not show acute abnormality. Twelve-lead EKG shows NSR at 87 bpm, QTc 430 ms. Patient is being managed on scheduled bronchodilator, IV Solu-Medrol, Mucinex, incentive spirometry and Pep. Triple PCR for SARS-CoV-2, flu and RSV is pending. Blood culture and sputum culture ordered. Empirically on IV Zithromax. Mild leukocytosis with immature granulocytes 1.5%. 11/04: Leukocytosis improved. Immature granulocytes improving. AAA screen negative. Blood culture pending. 2. Urinary retention most likely due to: Patient required straight cath. UA is benign with glucosuria, nitrite and LE negative. WBC 0-5 cells, squamous cells 0-5 cells. urine culture ordered. Does not need antibiotic for UTI as suspicion is very low. 11/04: Urine culture pending. As per the nursing staff patient could not swallow Flomax capsule therefore Proscar added. 3. Left foot chronic wound with history of osteomyelitis: Patient follows in wound center with sql server consultant Dr. Guaman. Fortunately debridement of ulcer 1.8 x 0.7 x 0.7 cm on the left lateral foot. Patient was admitted in June 2023 for acute osteomyelitis of left foot. Continue antibiotic. 11/04: Director Of Radio Services Dr. Parveen Guaman consulted. 4. Chronic anemia, mild macrocytic: H&H 12.9/42%. Platelet count 316,000. 5. CKD stage IIIb: BUN/creatinine 2.06. Estimated creatinine clearance 31 mL/min. Hold lisinopril. Avoid nephrotoxic medications. 11/04: Creatinine improved to 1.78. BUN 27. 6. 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 6. Hypertension: Blood pressure slightly elevated Home medication reviewed. 7. Dyslipidemia: On home pravastatin. Living will/advanced directive/end of life care: Patient does not have living will or advanced directive. His is next of kin. After discussion of benefits/risks procedures involved with full code, DNR CC arrest and DNR CC, the patient opted for full code. Patient does want artificial life support including intubation, tube feed, ventilator and/chest compression, central venous catheter, vasopressor and DC shock if needed Total time spent in [id number] encounter in discussion of advanced directive 17 minutes. Clinical Impression(s) from Imaging Studies Chest X-Ray 11/04/23 11:25 IMPRESSION: No radiographic evidence of acute cardiopulmonary disease. Electronically Signed: Lorena Zavala MD at 12:13 EDT , Charges/Coding Visit Charges Inpatient E&M: 54828 Subs Hosp L2
[2023-11-05] MEDS: Gabapentin 100 MG Capsule 200 MG PO ×2 (09:35→18:30)
[2023-11-05] MEDS: Folic Acid 1 MG Tablet 0.5 MG PO (09:36)
[2023-11-05] MEDS: Aspirin 81 MG TAB.CHEW PO (09:36)
[2023-11-05] MEDS: APIXABAN 5 MG TABLET PO ×2 (09:37→22:12)
[2023-11-05] MEDS: Doxycycline 100 MG CAPSULE PO ×2 (09:37→22:12)
[2023-11-05] MEDS: amLODIPine 2.5 MG Tablet PO (09:38)
[2023-11-05] MEDS: Metoprolol Tartrate 50 MG Tablet PO ×2 (09:38→22:13)
[2023-11-05] MEDS: Senna/Docusate Sodium 1 Tablet 2 TABLET PO ×2 (09:47→22:12)
--- NOTE | 2023-11-05 09:55 | CASEMGMT ---
TIFFANY WALKER Face to Face with patient for initial transition planning/care coordination assessment. RN DENISE introduced self and role at [facility]. Patient lying in bed, alert and oriented. Patient willing to participate in assessment and is able to answer all questions appropriately. Care providers, pharmacy, and demographics verified. Strata: 3 PCP: Omayra Specialists: jonathan Root Preferred Pharmacy: [facility] Insurance: [facility] Prescription Benefit: yes Living Will/HPOA: yes, Abigail Oliva LNOK: Living Arrangements: Patient lives with in a mobile home with ramp to enter the home. Patient states he is independent at home. Transportation: self, DME/HHC: Patient has cane, walker, wheelchair, [place]over [place], nebulizer, pulse ox, and home oxygen with portability through [employer] verified at 2lpm at rest, 3lpm with [employer]. Patient has been to [facility] and [facility] in the past. Patient is active with [facility] but does not recall agency but states it was setup by the [facility]. RN CM called [facility] and states he was setup with [facility]. DC corporate planning manager notified. Patient wishes to discharge home with resumption of HHC. Patient states he has no further needs or concerns at this time. CM to follow for discharge planning needs that may arise. Disposition Plan: Patient to discharge home with resumption of HHC, family support, and follow-up plans in place. Ayse MELISSA, RN, CM
--- NOTE | 2023-11-05 10:16 | CASEMGMT ---
Addendum entered by Katie Conn 11/06/23 12:14: Patient is active for SN. Requested order updates given to TIFFANY WALKER. Katie Conn DC Planning Asst. Original Note: Discharge Planning HH resumption referral sent to [facility]. Katie Conn DC Planning Asst.
[2023-11-05] MEDS: Polyethylene Glycol 3350 17 GM PACKET PO (12:29)
[2023-11-05] MEDS: Bisacodyl 10 MG Suppository RC (12:29)
[2023-11-05] MEDS: Cholecalciferol (VIT D3) 25 MCG TABLET (1,000 UNITS) PO (12:30)
[2023-11-05] MEDS: buPROPion (XL) 150 MG TABLET.XL PO (12:30)
[2023-11-05] MEDS: Finasteride 5 MG Tablet PO (15:04)
[2023-11-05] MEDS: Pramipexole Di-HCl 1 MG Tablet PO (22:13)
[2023-11-05] MEDS: Pravastatin 20 MG Tablet 10 MG PO (22:14)
[2023-11-06] VITALS (13 sets, daily range): BP systolic 114–136; BP diastolic 50–80; PULSE 83–92; RESP 16–20; TEMP 36.3–37; O2SAT 94–97
[2023-11-06] MEDS: Ipratropium/Albuterol Sulfate 3 ML AMPUL.NEB INHALATION ×6 (03:17→23:14)
[2023-11-06] MEDS: Acetaminophen 500 MG Tablet 1000 MG PO ×3 (05:21→22:43)
[2023-11-06] MEDS: 0.9% Saline Lock 10 ML Syringe IV ×4 (05:21→22:43)
--- NOTE | 2023-11-06 07:42 | CON.PCM_ITS ---
Assessment & Plan Assessment/Plan (1) Non-pressure chronic ulcer of other part of left foot with fat layer exposed: PLAN: Patient was examined and evaluated. All findings were discussed with the patient. All questions were answered to the patient satisfaction. No debridement was done at this time to the lateral aspect of the left foot full-thickness ulceration. Graft will remain intact until next Thursday. No signs of infection at the level of the left foot. The graft was dressed with hydrogel, 4 x 4's, Saw and single-layer Thad bandage. Orders for dressing changes given to nursing staff. Chest x-ray individually reviewed does not show acute abnormality. Blood Cx: pending WBC:13.6 - > 10.4 Cr: 2.06 -> 1.78 Medicine: On board, medical management No plan for surgical intervention at this time from a podiatry perspective. Dressing change orders given for nursing staff. Will continue to follow patient while in house but from a distance. If the patient is still present next week, will return to bedside for debridement of the wound for continued wound care to the left foot. Please reach out to Dr. Guaman for any questions or concerns. Thank you for the consultation! HPI Consult Data Date of Consult: 11/06/23 HPI Narrative Reason for Consultation: Left foot full-thickness wound HPI Narrative: DARRYN ROMAN, is a 73 M past medical history of CKD stage III, COPD chronically on 3 L nasal cannula, hypertension, tobacco use who presents to the emergency department the chief complaint of cough, shortness of breath, decreased urine output. Patient was ultimately admitted to the hospital for worsening shortness of breath, and generalized weakness for a few days. Patient is being seen by medicine team. Podiatry consulted for full-thickness wound to lateral aspect of the left foot. Denies trauma. Denies constitutional symptoms. No other pedal complaints at this time. FOR[facility]LY [facility] Medical History Depression Anxiety Smoker Sleep apnea Insulin resistance CKD stage 3b, GFR 30-44 ml/min Anemia Chronic kidney disease Chronic anticoagulation History of COPD Other specified peripheral vascular diseases Hx of blood clots HTN (hypertension) Asthma COPD (chronic obstructive pulmonary disease) Tobacco dependence syndrome COLD (chronic obstructive lung disease) Home Medications ?Medication ?Instructions ?Recorded ?Last Taken ?Type aspirin 81 mg chewable tablet 81 mg PO DAILY@0800 [facility] 02/03/14 11/04/23 History budesonide-formoterol HFA 160 2 puff PO BID COPD 02/03/14 11/04/23 History mcg-4.5 mcg/actuation aerosol inhaler (Symbicort) albuterol sulfate 90 mcg/actuation 2 puff inhalation Q4H PRN PRN Sob 08/24/18 11/04/23 History aerosol inhaler &/Or Wheezing apixaban 5 mg tablet 5 mg PO BID BLOOD THINNER 08/24/18 11/04/23 History lisinopril 20 mg tablet 20 mg PO DAILY bp 08/24/18 11/04/23 History metoprolol tartrate 50 mg tablet 50 mg PO BID HTN 08/24/18 11/04/23 History pravastatin 10 mg tablet 10 mg PO QHS HIGH CHOLESTEROL 10/04/22 11/04/23 History sucralfate 1 gram tablet (Carafate) 1 g PO TID GASTRIC ULCERS 30 days 10/24/22 11/03/23 Rx #90 tabs PEP device #1 ea 11/06/22 Unknown Rx folic acid 400 mcg tablet 0.4 mg PO DAILY DIETARY SUPPLEMENT 11/06/22 07/06/23 History prednisone 10 mg tablet 10 mg PO DAILY COPD 90 days #90 01/30/23 11/04/23 Rx tabs cyanocobalamin (vitamin B-12) 100 100 mcg PO DAILY VITAMIN SUPPLEMENT 04/16/23 07/06/23 History mcg tablet (Vitamin B-12) cholecalciferol (vitamin D3) 25 25 mcg PO DAILY DIETARY SUPPLEMENT 05/27/23 11/04/23 History mcg (1,000 unit) capsule (Vitamin D3) meropenem 1 gram intravenous 1 g IV Q12H 42 days 07/09/23 Unknown Rx solution acetaminophen 500 mg tablet 1,000 mg (2 x 500 mg) PO Q8 #0 tabs 07/15/23 Unknown Rx amlodipine 2.5 mg tablet 2.5 mg PO DAILY #0 tabs 07/15/23 11/04/23 Rx docusate sodium 100 mg capsule 100 mg PO BID #0 caps 07/15/23 Unknown Rx gabapentin 100 mg capsule 200 mg (2 x 100 mg) PO BIDCM #0 07/15/23 Unknown Rx caps pantoprazole 40 mg tablet,delayed 40 mg PO BID #0 tabs 07/15/23 Unknown Rx release pramipexole 0.5 mg tablet 1 mg (2 x 0.5 mg) PO QHS #0 tabs 07/15/23 11/03/23 Rx sennosides 8.6 mg-docusate sodium 2 tab PO BID PRN PRN Constipation 07/15/23 Unknown Rx 50 mg tablet (Stool #0 tabs Softener-Stimulant Laxative) sodium hypochlorite 0.25 % 1 applic topical DAILY #0 mL 07/15/23 Unknown Rx solution (HySept) ipratropium 0.5 mg-albuterol 3 mg 3 ml inhalation Q4H PRN shortness 10/05/23 Unknown Rx (2.5 mg base)/3 mL nebulization of breath or wheezing #540 mL soln bupropion HCl 150 mg 24 hr tablet, 150 mg PO DAILY Anxiety 11/04/23 11/04/23 History extended release guaifenesin 1,200 mg tablet, 1,200 mg PO BID Mucus 11/04/23 11/04/23 History extended release 12 hr (Mucinex) nicotine 21 mg/24 hr daily 1 patch topical DAILY smoker 11/04/23 Unknown History transdermal patch ropinirole 0.5 mg tablet 0.5 mg PO TID Restless legs 11/04/23 11/04/23 History Allergy/AdvReac Type Severity Reaction Status Date / Time azithromycin (From Zithromax) Allergy Swelling Verified 07/10/23 08:13 Penicillins Allergy Hives Verified 07/10/23 08:13 shellfish derived Allergy Hives Verified 07/10/23 08:13 venom-honey bee (bee venom Allergy Hives Verified 07/10/23 08:13 (honey bee)) Family History Other Asthma CAD (coronary artery disease) CVA (cerebral vascular accident) Cancer Diabetes Heart disease Hypertension Myocardial infarction Surgical History History of appendectomy Heart valve replaced History of hand surgery H/O neck surgery Social History Smoking Status: Current every day smoker tobacco type: cigarettes Tobacco: How many years used: 62 alcohol intake: current alcohol intake frequency: a few times a week Alcohol type: beer seatbelt use: always Physical Exam Narrative Vascular: PT, peroneal arteries are biphasic on Doppler. AT and DP are monophasic on Doppler. CFT is 4 seconds. Nonpitting edema appreciated to the left lower extremity. Skin temperature gradient is warm to cool from proximal ankle to distal digits bilateral. Neurological: Light touch intact. Protective sensation is intact. Patient response to painful stimuli. Dermatological: Full-thickness ulceration left foot measuring 1.8 x 0.7 x 0.7 cm, with graft intact. Xerosis appreciated to left lower extremity. Musculoskeletal: No palpatory tenderness appreciated to left lower extremity incision or skin graft. No pain with calf compression Lab / Micro Data 11/05/23 06:38 11/05/23 06:38 Labs: Laboratory Results - last 24 hr 11/05/23 06:38: Sodium 140, Potassium 4.8, Chloride 109 H, Carbon Dioxide 21.0, Anion Gap 10, BUN 27 H, Creatinine 1.78 H, Estim Creat Clear Calc 34.08, Est GFR (MDRD) Af Amer 49 L, Est GFR (MDRD) Non-Af 40 L, BUN/Creatinine Ratio 15.2, G lucose 132 H, Calcium 8.9
[2023-11-06] MEDS: Aspirin 81 MG TAB.CHEW PO (11:15)
[2023-11-06] MEDS: Tamsulosin HCl 0.4 MG Capsule PO (11:15)
[2023-11-06] MEDS: APIXABAN 5 MG TABLET PO ×2 (11:15→22:43)
[2023-11-06] MEDS: Folic Acid 1 MG Tablet 0.5 MG PO (11:15)
[2023-11-06] MEDS: Cholecalciferol (VIT D3) 25 MCG TABLET (1,000 UNITS) PO (11:15)
[2023-11-06] MEDS: Metoprolol Tartrate 50 MG Tablet PO ×2 (11:15→22:42)
[2023-11-06] MEDS: Finasteride 5 MG Tablet PO (11:16)
[2023-11-06] MEDS: Doxycycline 100 MG CAPSULE PO ×2 (11:16→22:43)
[2023-11-06] MEDS: buPROPion (XL) 150 MG TABLET.XL PO (11:16)
[2023-11-06] MEDS: amLODIPine 2.5 MG Tablet PO (11:16)
[2023-11-06] MEDS: Gabapentin 100 MG Capsule 200 MG PO ×2 (11:23→18:00)
--- NOTE | 2023-11-06 14:22 | CASEMGMT ---
Therapy notified SW that patient feels he needs to go somewhere for rehab. SW met with patient. Introduced self and role at [facility]. Patient confirmed he needs to go somewhere for rehab. Patient would like to go back to [facility]. Patient said he does not need a list of facilities unless [facility] cannot take him. SW let patient know SW will make a referral and someone will let him know. SW asked Katie to make a referral to [facility]. Tammy CARRENO
--- NOTE | 2023-11-06 15:12 | CASEMGMT ---
Addendum entered by Katie Conn 11/09/23 10:30: Requested updates sent to [place] via [facility]. Katie Conn DC Planning Asst. Addendum entered by Katie Conn 11/06/23 15:59: [facility] has accepted and will submit for precert. Katie Conn DC Planning Asst. Original Note: Discharge Planning Referral sent to [place] at [place]. Katie Conn DC Planning Asst.
--- NOTE | 2023-11-06 16:03 | PN.HOSP_ITS ---
Reason for Visit Reason for Visit: Diagnoses Chronic obstructive pulmonary disease with (acute) exacerbation (11/04/23) Non-pressure chronic ulcer of other part of left foot with fat layer exposed (11/04/23) Objective Data Objective Data Vital Signs: Vital Signs Temp Pulse Resp BP Pulse Ox O2 Del Method O2 Flow Rate 97.9 F 86 16 136/70 H 96 Nasal Cannula 2 11/06/23 15:20 11/06/23 15:20 11/06/23 15:20 11/06/23 15:20 11/06/23 15:20 11/06/23 15:20 11/06/23 15:20 Oxygen Flow Rate (L/min) 2 Oxygen Delivery Method Nasal Cannula Weight: 139 lb 8.842 oz Body Mass Index (BMI) 20.6 Intake & Output: Intake and Output for Last 24 Hours 11/04/23 11/05/23 11/06/23 23:59 23:59 23:59 Intake Total 1500 / 1500 1865 / 1865 120 / 120 Output Total 200 / 200 400 / 400 Balance 1300 / 1300 1865 / 1865 -280 / -280 Lab / Micro Data 11/05/23 06:38 11/05/23 06:38 Micro: Microbiology 11/04/23 10:55 Blood Culture (Wb) - Right Hand Blood Culture - Preliminary No growth in 48 hours. 11/04/23 11:09 Urine Catheter - Catheter Urine Culture - Final Culture exhibits no growth. 11/04/23 13:35 Mucosa - Nose SARS-CoV-2, Influenza & RSV (PCR) - Final Physical Exam Narrative Seen and examined. Patient still retaining urine. On intermittent catheterization. Has residual urine about 200 mL on bladder scan Shortness of breath is better but is still not at baseline. Patient has wheezing. Patient stated that he feels mild difficulty in urinating but he can urinate. Physical exam General: Alert, Oriented x3, Cooperative HEENT: Atraumatic, PERRLA, EOMI, Normocephalic Oral: No Gingival or Mucosal Lesions/ Ulcerations Neck: Supple, No JVD, Negative Carotid Bruits Chest wall/Lungs: Air entry diminished in bilateral lung bases. Mild bilateral expiratory rhonchi. Mild MARQUIS. Cardiovascular: Regular rate, Regular Rhythm, Normal S1, Normal S2, No M/G/R Abdomen: Bowel Sounds Present, Soft, Non Tender, Non-Distended : Urinary retention. No dysuria. No renal angle tenderness. No suprapubic tenderness. Extremities: No edema, Capillary Refill Less than 3 Seconds Skin: No rashes, No breakdown Musculoskeletal: No Tenderness to Palpation of Joints or Extremities Neurological: Cranial nerves II-XII grossly intact, DTR 2+/4. No acute focal neurological deficit. Psych/Mental Status: Normal Affect, Appropriate. Assessment & Plan Assessment/Plan (1) COPD exacerbation: PLAN: Plan This is a 73-year-old gentleman admitted for shortness of breath and cough which is not new for few days. Patient is still smokes about half pack per day, cut down from 4 packs/day in the past. 1. COPD exacerbation as change in shortness of breath/dyspnea at rest: Patient is being admitted in PCU. Chest x-ray individually reviewed does not show acute abnormality. Twelve-lead EKG shows NSR at 87 bpm, QTc 430 ms. Patient is being managed on scheduled bronchodilator, IV Solu-Medrol, Mucinex, incentive spirometry and Pep. Triple PCR for SARS-CoV-2, flu and RSV is pending. Blood culture and sputum culture ordered. Empirically on IV Zithromax. Mild leukocytosis with immature granulocytes 1.5%. 11/04: Leukocytosis improved. Immature granulocytes improving. Triple PCR for SARS-CoV-2, flu and RSV are negative. Blood culture pending. 11/05: Blood culture negative for 48 hours. Urine culture does not show growth. Zithromax was changed to doxycycline. 2. Urinary retention most likely due to: Patient required straight cath. UA is benign with glucosuria, nitrite and LE negative. WBC 0-5 cells, squamous cells 0-5 cells. urine culture ordered. Does not need antibiotic for UTI as suspicion is very low. 11/04: Urine culture pending. As per the nursing staff patient could not swallow Flomax capsule therefore Proscar added. 11/05: Urine culture no growth. Flomax changed to doxazosin. Continue Proscar. Discussed with the nursing staff to teach self-catheterization every 4-6 hours with bladder scan with residual urine more than 200 mL. Need to follow-up urologist after discharge. 3. Left foot chronic wound with history of osteomyelitis: Patient follows in wound center with supervisor leaf spring fabrication Dr. Guaman. Fortunately debridement of ulcer 1.8 x 0.7 x 0.7 cm on the left lateral foot. Patient was admitted in June 2023 for acute osteomyelitis of left foot. Continue antibiotic. 11/04: Assistant Professor Of Biology Dr. Parveen Guaman consulted. 4. Chronic anemia, mild macrocytic: H&H 12.9/42%. Platelet count 316,000. 5. CKD stage IIIb: BUN/creatinine 2.06. Estimated creatinine clearance 31 mL/min. Hold lisinopril. Avoid nephrotoxic medications. 11/04: Creatinine improved to 1.78. BUN 27. 6. 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 6. Hypertension: Blood pressure slightly elevated Home medication reviewed. 7. Dyslipidemia: On home pravastatin. Living will/advanced directive/end of life care: Patient does not have living will or advanced directive. His is next of kin. After discussion of benefits/risks procedures involved with full code, DNR CC arrest and DNR CC, the patient opted for full code. Patient does want artificial life support including intubation, tube feed, ventilator and/chest compression, central venous catheter, vasopressor and DC shock if needed Total time spent in [id number] encounter in discussion of advanced directive 17 minutes. Clinical Impression(s) from Imaging Studies Chest X-Ray 11/04/23 11:25 IMPRESSION: No radiographic evidence of acute cardiopulmonary disease. Electronically Signed: Lorena Zavala MD at 12:13 EDT , Charges/Coding Visit Charges Inpatient E&M: 32339 Subs Hosp L2
--- NOTE | 2023-11-06 16:23 | CASEMGMT ---
ANDRES notified patient that [facility] accepted him and now he will need to stay to wait on his insurance to approve. ANDRES let patient know this likely will not be until Thursday at the earliest. Plan: d/c to [facility] under skilled level of care pending insurance approval. Tammy Mallory GLASSWARE MAKERMckenna CARRENO
[2023-11-06] MEDS: Doxazosin 4 MG Tablet PO (18:02)
[2023-11-06] MEDS: Famotidine 20 MG Tablet PO (22:16)
[2023-11-06] MEDS: Senna/Docusate Sodium 1 Tablet 2 TABLET PO (22:42)
[2023-11-06] MEDS: Pravastatin 20 MG Tablet 10 MG PO (22:42)
[2023-11-06] MEDS: Pramipexole Di-HCl 1 MG Tablet PO (22:43)
[2023-11-07] VITALS (13 sets, daily range): BP systolic 121–134; BP diastolic 64–75; PULSE 74–89; RESP 16–20; TEMP 36.1–36.8; O2SAT 94–98
[2023-11-07] MEDS: Ipratropium/Albuterol Sulfate 3 ML AMPUL.NEB INHALATION ×6 (03:03→23:15)
[2023-11-07] MEDS: 0.9% Saline Lock 10 ML Syringe IV ×2 (05:14→11:09)
[2023-11-07] MEDS: Acetaminophen 500 MG Tablet 1000 MG PO ×3 (05:14→21:12)
[2023-11-07 06:17] LABS: Absolute Lymphocyte Count 0.73 X10^3/uL (0.83-4.51); Absolute Neutrophil Count 12.9 X10^3/uL (2.0-7.7); Basophil# 0.01 X10^3/uL; Basophil% 0.1 % (0-1); Hematocrit 35.1 % (40-54); Hemoglobin 10.8 g/dL (13.0-16.5); Lymphocyte # 0.73 X10^3/ul (0.83-4.51); Lymphocyte % 5.1 % (19-41); Mean Corp Hgb Conc 30.8 g/dL (32-36); Mean Corpuscular Volume 97.5 fL (80-94); Mean Platelet Vol. 9.7 fl (6.2-12.0); Monocyte# 0.43 X10^3/uL; NRBC Flagged by Analyzer 0 % (0-5); Neutrophil # 12.92 X10^3/uL (2.7-7.7); Neutrophil % 90.6 % (47-70); Platelet Count 296 K/mm3 (150-450); RBC Distribution Width CV 14.5 % (11.6-14.6); RBC Distribution Width SD 52.3 fl (35.1-43.9); White Blood Count 14.3 K/mm3 (4.4-11.0)
[2023-11-07 07:31] LABS: Anion Gap 6 (5-15); BUN 44 mg/dL (7-18); BUN/Creat Ratio 25.1 RATIO (10-20); Calcium,Total 9.1 mg/dL (8.5-10.1); Chloride 107 mmol/L (98-107); Creatinine, Serum 1.75 mg/dL (0.70-1.30); EST Glomerular Filtration Rate 41 mL/min (>60); Est Glom Filt Rate - Afr Amer 50 mL/min (>60); Estimated Creatinine Clearance 34.66 ml/min; Glucose 141 mg/dL (74-106); Potassium 4.8 mmol/L (3.5-5.1); Sodium Level 138 mmol/L (136-145)
[2023-11-07] MEDS: Doxycycline 100 MG CAPSULE PO ×2 (11:00→21:13)
[2023-11-07] MEDS: Finasteride 5 MG Tablet PO (11:00)
[2023-11-07] MEDS: Senna/Docusate Sodium 1 Tablet 2 TABLET PO ×2 (11:00→21:12)
[2023-11-07] MEDS: Folic Acid 1 MG Tablet 0.5 MG PO (11:00)
[2023-11-07] MEDS: Cholecalciferol (VIT D3) 25 MCG TABLET (1,000 UNITS) PO (11:00)
[2023-11-07] MEDS: buPROPion (XL) 150 MG TABLET.XL PO (11:00)
[2023-11-07] MEDS: amLODIPine 2.5 MG Tablet PO (11:00)
[2023-11-07] MEDS: Metoprolol Tartrate 50 MG Tablet PO ×2 (11:00→21:10)
[2023-11-07] MEDS: APIXABAN 5 MG TABLET PO ×2 (11:01→21:13)
[2023-11-07] MEDS: Aspirin 81 MG TAB.CHEW PO (11:01)
[2023-11-07] MEDS: Famotidine 20 MG Tablet PO (11:01)
[2023-11-07] MEDS: Gabapentin 100 MG Capsule 200 MG PO ×2 (11:07→16:17)
--- NOTE | 2023-11-07 14:16 | PCM.PN.HOSP ---
Subjective Subjective Doing well, feels weak. No issues overnight Objective Data Objective Data Vital Signs: Vital Signs Temp Pulse Resp BP Pulse Ox O2 Del Method O2 Flow Rate 97.8 F 75 20 H 122/64 H 97 Nasal Cannula 2 11/07/23 10:54 11/07/23 11:00 11/07/23 10:58 11/07/23 11:00 11/07/23 10:54 11/07/23 10:54 11/07/23 10:54 Oxygen Flow Rate (L/min) 2 Oxygen Delivery Method Nasal Cannula Weight: 139 lb 8.842 oz Body Mass Index (BMI) 20.6 Intake & Output: Intake and Output for Last 24 Hours 11/06/23 11/07/23 11/08/23 03:59 03:59 03:59 Intake Total 1865 / 1865 420 / 420 220 / 220 Output Total 400 / 400 Balance 1865 / 1865 220 / 220 Lab / Micro Data 11/07/23 05:40 11/07/23 05:40 Labs: Laboratory Results - last 24 hr 11/07/23 05:40: WBC 14.3 H, RBC 3.60 L, Hgb 10.8 L, Hct 35.1 L, MCV 97.5 H, MCH 30.0, MCHC 30.8 L, RDW Std Deviation 52.3 H, RDW Coeff of Meek 14.5, Plt Count 296, MPV 9.7, Immature Gran % (Auto) 1.200 H, Neut % (Auto) 90.6 H, Lymph % (Auto) 5.1 L, [place] % (Auto) 3.0, Eos % (Auto) 0.0, Baso % (Auto) 0.1, Absolute Neuts (auto) 12.9 H, Absolute Lymphs (auto) 0.73 L, Nucleated RBC % 0, Sodium 138, Potassium 4.8, Chloride 107, Carbon Dioxide 25.0, Anion Gap 6, BUN 44 H, Creatinine 1.75 H, Estim Creat Clear Calc 34.66, Est GFR (MDRD) Af Amer 50 L, Est GFR (MDRD) Non-Af 41 L, BUN/Creatinine Ratio 25.1 H, Glucose 141 H, Calcium 9.1 Micro: Microbiology 11/04/23 10:55 Blood Culture (Wb) - Right Hand Blood Culture - Preliminary No growth in 48 hours. 11/04/23 11:09 Urine Catheter - Catheter Urine Culture - Final Culture exhibits no growth. 11/04/23 13:35 Mucosa - Nose SARS-CoV-2, Influenza & RSV (PCR) - Final Physical Exam Narrative General: Alert, Oriented x3, Cooperative, No apparent distress HEENT: Atraumatic, PERRLA, EOMI, Normocephalic Oral: Moist Mucosa Neck: Supple, No JVD Lungs: Diminished, Normal air movement, No rhonchi, scattered wheeze, No rales Cardiovascular: Regular rate, Regular Rhythm, Normal S1, Normal S2, No murmurs Abdomen: Soft, Non Tender, Non-Distended, No Hepato-splenomegaly Extremities: No edema, Capillary Refill Less than 3 Seconds Skin: Left foot ulceration Musculoskeletal: No Tenderness to Palpation of Joints or Extremities Neurological: No focal neurological deficits, Motor Exam 5/5 strength throughout, Sensory exam intact to light touch and pain Psych/Mental Status: Normal Affect, Appropriate Assessment & Plan Assessment/Plan (1) COPD exacerbation: PLAN: Plan 1. COPD exacerbation as change in shortness of breath/dyspnea at rest: Patient is being admitted in PCU. Chest x-ray individually reviewed does not show acute abnormality. Twelve-lead EKG shows NSR at 87 bpm, QTc 430 ms. Patient is being managed on scheduled bronchodilator, IV Solu-Medrol, Mucinex, incentive spirometry and Pep. Triple PCR for SARS-CoV-2, flu and RSV is pending. Blood culture and sputum culture ordered. Empirically on IV Zithromax. Mild leukocytosis with immature granulocytes 1.5%. 11/04: Leukocytosis improved. Immature granulocytes improving. Triple PCR for SARS-CoV-2, flu and RSV are negative. Blood culture pending. 11/05: Blood culture negative for 48 hours. Urine culture does not show growth. Zithromax was changed to doxycycline. 11/07/2023: Will change Solu-Medrol to prednisone, PT/OT recommending SNF placement 2. Urinary retention most likely due to: Patient required straight cath. UA is benign with glucosuria, nitrite and LE negative. WBC 0-5 cells, squamous cells 0-5 cells. urine culture ordered. Does not need antibiotic for UTI as suspicion is very low. 11/04: Urine culture pending. As per the nursing staff patient could not swallow Flomax capsule therefore Proscar added. 11/05: Urine culture no growth. Flomax changed to doxazosin. Continue Proscar. Discussed with the nursing staff to teach self-catheterization every 4-6 hours with bladder scan with residual urine more than 200 mL. Need to follow-up urologist after discharge. 11/07/2023: Continue with medications, refuses Braun. 3. Left foot chronic wound with history of osteomyelitis: Patient follows in wound center with district superintendent Dr. Guaman. Fortunately debridement of ulcer 1.8 x 0.7 x 0.7 cm on the left lateral foot. Patient was admitted in June 2023 for acute osteomyelitis of left foot. Continue antibiotic. 11/04: Instrumentation Engineer Dr. Parveen Guaman consulted. 4. Chronic anemia, mild macrocytic: H&H 12.9/42%. Platelet count 316,000. 5. CKD stage IIIb: BUN/creatinine 2.06. Estimated creatinine clearance 31 mL/min. Hold lisinopril. Avoid nephrotoxic medications. 11/04: Creatinine improved to 1.78. BUN 27. 6. 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 6. Hypertension: Blood pressure slightly elevated Home medication reviewed. 7. Dyslipidemia: On home pravastatin. DVT: Eliquis Charges/Coding Visit Charges Inpatient E&M: 29738 Subs Hosp L2
[2023-11-07] MEDS: Doxazosin 4 MG Tablet PO (16:12)
[2023-11-07] MEDS: Pramipexole Di-HCl 1 MG Tablet PO (21:11)
[2023-11-07] MEDS: Calcium Carbonate 500 MG Tablet PO (21:11)
[2023-11-07] MEDS: Pravastatin 20 MG Tablet 10 MG PO (21:13)
[2023-11-08] VITALS (12 sets, daily range): BP systolic 99–135; BP diastolic 61–75; PULSE 72–82; RESP 18–22; TEMP 36.3–36.6; O2SAT 96–99
[2023-11-08] MEDS: Ipratropium/Albuterol Sulfate 3 ML AMPUL.NEB INHALATION ×6 (02:50→23:26)
[2023-11-08 07:10] LABS: Absolute Lymphocyte Count 1.84 X10^3/uL (0.83-4.51); Absolute Neutrophil Count 8.4 X10^3/uL (2.0-7.7); Basophil# 0.02 X10^3/uL; Basophil% 0.2 % (0-1); Eosinophil# 0.15 X10^3/uL; Eosinophils% 1.3 % (0-5); Hematocrit 35.5 % (40-54); Hemoglobin 11.1 g/dL (13.0-16.5); Lymphocyte # 1.84 X10^3/ul (0.83-4.51); Lymphocyte % 16.1 % (19-41); Mean Corp Hgb Conc 31.3 g/dL (32-36); Mean Corpuscular Hgb 30.6 pg (27.0-32.0); Mean Corpuscular Volume 97.8 fL (80-94); Mean Platelet Vol. 9.8 fl (6.2-12.0); Monocyte# 0.92 X10^3/uL; NRBC Flagged by Analyzer 0 % (0-5); Neutrophil # 8.35 X10^3/uL (2.7-7.7); Neutrophil % 72.8 % (47-70); Platelet Count 292 K/mm3 (150-450); RBC Distribution Width CV 14.5 % (11.6-14.6); RBC Distribution Width SD 52.6 fl (35.1-43.9); Red Blood Count 3.63 M/mm3 (4.6-6.2); White Blood Count 11.5 K/mm3 (4.4-11.0)
[2023-11-08 07:27] LABS: Anion Gap 4 (5-15); BUN 37 mg/dL (7-18); BUN/Creat Ratio 26.1 RATIO (10-20); Calcium,Total 9.1 mg/dL (8.5-10.1); Chloride 105 mmol/L (98-107); Creatinine, Serum 1.42 mg/dL (0.70-1.30); EST Glomerular Filtration Rate 52 mL/min (>60); Est Glom Filt Rate - Afr Amer 63 mL/min (>60); Estimated Creatinine Clearance 42.72 ml/min; Glucose 88 mg/dL (74-106); Potassium 4.5 mmol/L (3.5-5.1); Sodium Level 137 mmol/L (136-145)
[2023-11-08] MEDS: Famotidine 20 MG Tablet PO (10:33)
[2023-11-08] MEDS: Finasteride 5 MG Tablet PO (10:33)
[2023-11-08] MEDS: Gabapentin 100 MG Capsule 200 MG PO ×2 (10:33→17:38)
[2023-11-08] MEDS: Folic Acid 1 MG Tablet 0.5 MG PO (10:33)
[2023-11-08] MEDS: Cholecalciferol (VIT D3) 25 MCG TABLET (1,000 UNITS) PO (10:34)
[2023-11-08] MEDS: Senna/Docusate Sodium 1 Tablet 2 TABLET PO ×2 (10:34→22:37)
[2023-11-08] MEDS: Doxycycline 100 MG CAPSULE PO ×2 (10:34→22:36)
[2023-11-08] MEDS: amLODIPine 2.5 MG Tablet PO (10:34)
[2023-11-08] MEDS: Metoprolol Tartrate 50 MG Tablet PO ×2 (10:34→22:36)
[2023-11-08] MEDS: Polyethylene Glycol 3350 17 GM PACKET PO (10:35)
[2023-11-08] MEDS: buPROPion (XL) 150 MG TABLET.XL PO (10:35)
[2023-11-08] MEDS: Aspirin 81 MG TAB.CHEW PO (10:35)
[2023-11-08] MEDS: APIXABAN 5 MG TABLET PO ×2 (10:35→22:37)
[2023-11-08] MEDS: predniSONE 20 MG Tablet 40 MG PO (10:37)
--- NOTE | 2023-11-08 13:06 | PCM.PN.HOSP ---
Subjective Subjective Doing well, no issues overnight Objective Data Objective Data Vital Signs: Vital Signs Temp Pulse Resp BP Pulse Ox O2 Del Method O2 Flow Rate 97.3 F L 82 20 H 107/64 98 Nasal Cannula 2 11/08/23 09:00 11/08/23 10:58 11/08/23 10:58 11/08/23 10:34 11/08/23 09:00 11/08/23 10:11 11/08/23 10:11 Oxygen Flow Rate (L/min) 2 Oxygen Delivery Method Nasal Cannula Weight: 139 lb 8.842 oz Body Mass Index (BMI) 20.6 Intake & Output: Intake and Output for Last 24 Hours 11/07/23 11/08/23 11/09/23 03:59 03:59 03:59 Intake Total 420 / 420 220 / 220 Output Total 400 / 400 Balance 220 / 220 Lab / Micro Data 11/08/23 06:20 11/08/23 06:20 Labs: Laboratory Results - last 24 hr 11/08/23 06:20: WBC 11.5 H, RBC 3.63 L, Hgb 11.1 L, Hct 35.5 L, MCV 97.8 H, MCH 30.6, MCHC 31.3 L, RDW Std Deviation 52.6 H, RDW Coeff of Meek 14.5, Plt Count 292, MPV 9.8, Immature Gran % (Auto) 1.600 H, Neut % (Auto) 72.8 H, Lymph % (Auto) 16.1 L, [place] % (Auto) 8.0, Eos % (Auto) 1.3, Baso % (Auto) 0.2, Absolute Neuts (auto) 8.4 H, Absolute Lymphs (auto) 1.84, Nucleated RBC % 0, Sodium 137, Potassium 4.5, Chloride 105, Carbon Dioxide 28.0, Anion Gap 4 L, BUN 37 H, Creatinine 1.42 H, Estim Creat Clear Calc 42.72, Est GFR (MDRD) Af Amer 63, Est GFR (MDRD) Non-Af 52 L, BUN/Creatinine Ratio 26.1 H, Glucose 88, Calcium 9.1 Micro: Microbiology 11/04/23 10:55 Blood Culture (Wb) - Right Hand Blood Culture - Preliminary No growth in 48 hours. 11/04/23 11:09 Urine Catheter - Catheter Urine Culture - Final Culture exhibits no growth. 11/04/23 13:35 Mucosa - Nose SARS-CoV-2, Influenza & RSV (PCR) - Final Physical Exam Narrative General: Alert, Oriented x3, Cooperative, No apparent distress HEENT: Atraumatic, PERRLA, EOMI, Normocephalic Oral: Moist Mucosa Neck: Supple, No JVD Lungs: Diminished, Normal air movement, No rhonchi, scattered wheeze, No rales Cardiovascular: Regular rate, Regular Rhythm, Normal S1, Normal S2, No murmurs Abdomen: Soft, Non Tender, Non-Distended, No Hepato-splenomegaly Extremities: No edema, Capillary Refill Less than 3 Seconds Skin: Left foot ulceration Musculoskeletal: No Tenderness to Palpation of Joints or Extremities Neurological: No focal neurological deficits, Motor Exam 5/5 strength throughout, Sensory exam intact to light touch and pain Psych/Mental Status: Normal Affect, Appropriate Assessment & Plan Assessment/Plan (1) COPD exacerbation: PLAN: Plan 1. COPD exacerbation as change in shortness of breath/dyspnea at rest: Patient is being admitted in PCU. Chest x-ray individually reviewed does not show acute abnormality. Twelve-lead EKG shows NSR at 87 bpm, QTc 430 ms. Patient is being managed on scheduled bronchodilator, IV Solu-Medrol, Mucinex, incentive spirometry and Pep. Triple PCR for SARS-CoV-2, flu and RSV is pending. Blood culture and sputum culture ordered. Empirically on IV Zithromax. Mild leukocytosis with immature granulocytes 1.5%. 11/04: Leukocytosis improved. Immature granulocytes improving. Triple PCR for SARS-CoV-2, flu and RSV are negative. Blood culture pending. 11/05: Blood culture negative for 48 hours. Urine culture does not show growth. Zithromax was changed to doxycycline. 11/07/2023: Will change Solu-Medrol to prednisone, PT/OT recommending SNF placement 11/08/2023: Doing well, continue with the prednisone. Planning for SNF placement 2. Urinary retention most likely due to: Patient required straight cath. UA is benign with glucosuria, nitrite and LE negative. WBC 0-5 cells, squamous cells 0-5 cells. urine culture ordered. Does not need antibiotic for UTI as suspicion is very low. 11/04: Urine culture pending. As per the nursing staff patient could not swallow Flomax capsule therefore Proscar added. 11/05: Urine culture no growth. Flomax changed to doxazosin. Continue Proscar. Discussed with the nursing staff to teach self-catheterization every 4-6 hours with bladder scan with residual urine more than 200 mL. Need to follow-up urologist after discharge. 11/07/2023: Continue with medications, refuses Braun. 3. Left foot chronic wound with history of osteomyelitis: Patient follows in wound center with manufacturing specialist Dr. Guaman. Fortunately debridement of ulcer 1.8 x 0.7 x 0.7 cm on the left lateral foot. Patient was admitted in June 2023 for acute osteomyelitis of left foot. Continue antibiotic. 11/04: Valve Assembler Dr. Parveen Guaman consulted. 4. Chronic anemia, mild macrocytic: H&H 12.9/42%. Platelet count 316,000. 5. CKD stage IIIb: BUN/creatinine 2.06. Estimated creatinine clearance 31 mL/min. Hold lisinopril. Avoid nephrotoxic medications. 11/04: Creatinine improved to 1.78. BUN 27. 6. 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 6. Hypertension: Blood pressure slightly elevated Home medication reviewed. 7. Dyslipidemia: On home pravastatin. DVT: Eliquis Charges/Coding Visit Charges Inpatient E&M: 96060 Subs Hosp L2
[2023-11-08] MEDS: Acetaminophen 500 MG Tablet 1000 MG PO ×2 (13:40→22:37)
[2023-11-08] MEDS: Doxazosin 4 MG Tablet PO (17:38)
[2023-11-08] MEDS: Pravastatin 20 MG Tablet 10 MG PO (22:37)
[2023-11-08] MEDS: Pramipexole Di-HCl 1 MG Tablet PO (22:37)
[2023-11-09] VITALS (11 sets, daily range): BP systolic 105–121; BP diastolic 65–77; PULSE 72–84; RESP 16–20; TEMP 36–36.6; O2SAT 95–99
[2023-11-09] MEDS: Ipratropium/Albuterol Sulfate 3 ML AMPUL.NEB INHALATION ×5 (03:52→23:50)
[2023-11-09] MEDS: Acetaminophen 500 MG Tablet 1000 MG PO ×3 (06:28→21:13)
[2023-11-09 07:15] LABS: Absolute Lymphocyte Count 1.74 X10^3/uL (0.83-4.51); Absolute Neutrophil Count 8.6 X10^3/uL (2.0-7.7); Basophil# 0.05 X10^3/uL; Basophil% 0.4 % (0-1); Eosinophils% 0.9 % (0-5); Hematocrit 36.9 % (40-54); Hemoglobin 11.6 g/dL (13.0-16.5); Lymphocyte # 1.74 X10^3/ul (0.83-4.51); Lymphocyte % 14.8 % (19-41); Mean Corp Hgb Conc 31.4 g/dL (32-36); Mean Corpuscular Hgb 30.6 pg (27.0-32.0); Mean Corpuscular Volume 97.4 fL (80-94); Mean Platelet Vol. 9.9 fl (6.2-12.0); Monocyte# 0.92 X10^3/uL; Monocyte% 7.8 % (0-10); NRBC Flagged by Analyzer 0 % (0-5); Neutrophil # 8.62 X10^3/uL (2.7-7.7); Neutrophil % 73.3 % (47-70); Platelet Count 309 K/mm3 (150-450); RBC Distribution Width CV 14.4 % (11.6-14.6); RBC Distribution Width SD 51.7 fl (35.1-43.9); Red Blood Count 3.79 M/mm3 (4.6-6.2); White Blood Count 11.8 K/mm3 (4.4-11.0)
[2023-11-09] MEDS: Famotidine 20 MG Tablet PO (10:21)
[2023-11-09] MEDS: buPROPion (XL) 150 MG TABLET.XL PO (10:21)
[2023-11-09] MEDS: Cholecalciferol (VIT D3) 25 MCG TABLET (1,000 UNITS) PO (10:21)
[2023-11-09] MEDS: APIXABAN 5 MG TABLET PO ×2 (10:22→21:13)
[2023-11-09] MEDS: Finasteride 5 MG Tablet PO (10:22)
[2023-11-09] MEDS: Senna/Docusate Sodium 1 Tablet 2 TABLET PO ×2 (10:22→21:14)
[2023-11-09] MEDS: Metoprolol Tartrate 50 MG Tablet PO ×2 (10:23→21:13)
[2023-11-09] MEDS: predniSONE 20 MG Tablet 40 MG PO (10:23)
[2023-11-09] MEDS: Doxycycline 100 MG CAPSULE PO ×2 (10:23→21:13)
[2023-11-09] MEDS: Aspirin 81 MG TAB.CHEW PO (10:24)
[2023-11-09] MEDS: Folic Acid 1 MG Tablet 0.5 MG PO (10:24)
[2023-11-09] MEDS: amLODIPine 2.5 MG Tablet PO (10:24)
[2023-11-09] MEDS: Gabapentin 100 MG Capsule 200 MG PO ×2 (10:25→18:05)
[2023-11-09] MEDS: Polyethylene Glycol 3350 17 GM PACKET PO (10:25)
--- NOTE | 2023-11-09 10:59 | PN.HOSP_ITS ---
Subjective Subjective Doing well, no issues overnight Objective Data Objective Data Vital Signs: Vital Signs Temp Pulse Resp BP Pulse Ox O2 Del Method O2 Flow Rate 97.6 F L 84 18 107/65 97 Nasal Cannula 2 11/09/23 09:30 11/09/23 10:23 11/09/23 09:30 11/09/23 10:23 11/09/23 09:30 11/09/23 10:11/09/23 10:09 Oxygen Flow Rate (L/min) 2 Oxygen Delivery Method Nasal Cannula Weight: 139 lb 8.842 oz Body Mass Index (BMI) 20.6 Intake & Output: Intake and Output for Last 24 Hours 11/08/23 11/09/23 11/10/23 03:59 03:59 03:59 Intake Total 220 / 220 830 / 830 280 / 280 Output Total 600 / 600 Balance 220 / 220 230 / 230 280 / 280 Lab / Micro Data 11/09/23 05:55 11/08/23 06:20 Labs: Laboratory Results - last 24 hr 11/09/23 05:55: WBC 11.8 H, RBC 3.79 L, Hgb 11.6 L, Hct 36.9 L, MCV 97.4 H, MCH 30.6, MCHC 31.4 L, RDW Std Deviation 51.7 H, RDW Coeff of Meek 14.4, Plt Count 309, MPV 9.9, Immature Gran % (Auto) 2.800 H, Neut % (Auto) 73.3 H, Lymph % (Auto) 14.8 L, [place] % (Auto) 7.8, Eos % (Auto) 0.9, Baso % (Auto) 0.4, Absolute Neuts (auto) 8.6 H, Absolute Lymphs (auto) 1.74, Nucleated RBC % 0 Micro: Microbiology 11/04/23 10:55 Blood Culture (Wb) - Right Hand Blood Culture - Preliminary No growth in 48 hours. 11/04/23 11:09 Urine Catheter - Catheter Urine Culture - Final Culture exhibits no growth. 11/04/23 13:35 Mucosa - Nose SARS-CoV-2, Influenza & RSV (PCR) - Final Physical Exam Narrative General: Alert, Oriented x3, Cooperative, No apparent distress HEENT: Atraumatic, PERRLA, EOMI, Normocephalic Oral: Moist Mucosa Neck: Supple, No JVD Lungs: Diminished, Normal air movement, No rhonchi, scattered wheeze, No rales Cardiovascular: Regular rate, Regular Rhythm, Normal S1, Normal S2, No murmurs Abdomen: Soft, Non Tender, Non-Distended, No Hepato-splenomegaly Extremities: No edema, Capillary Refill Less than 3 Seconds Skin: Left foot ulceration Musculoskeletal: No Tenderness to Palpation of Joints or Extremities Neurological: No focal neurological deficits, Motor Exam 5/5 strength throughout, Sensory exam intact to light touch and pain Psych/Mental Status: Normal Affect, Appropriate Assessment & Plan Assessment/Plan (1) COPD exacerbation: PLAN: Plan 1. COPD exacerbation as change in shortness of breath/dyspnea at rest: Patient is being admitted in PCU. Chest x-ray individually reviewed does not show acute abnormality. Twelve-lead EKG shows NSR at 87 bpm, QTc 430 ms. Patient is being managed on scheduled bronchodilator, IV Solu-Medrol, Mucinex, incentive spirometry and Pep. Triple PCR for SARS-CoV-2, flu and RSV is pending. Blood culture and sputum culture ordered. Empirically on IV Zithromax. Mild leukocytosis with immature granulocytes 1.5%. 11/04: Leukocytosis improved. Immature granulocytes improving. Triple PCR for SARS-CoV-2, flu and RSV are negative. Blood culture pending. 11/05: Blood culture negative for 48 hours. Urine culture does not show growth. Zithromax was changed to doxycycline. 11/07/2023: Will change Solu-Medrol to prednisone, PT/OT recommending SNF placement 11/08/2023: Doing well, continue with the prednisone. Planning for SNF placement 11/09/2023: Awaiting SNF placement 2. Urinary retention most likely due to: Patient required straight cath. UA is benign with glucosuria, nitrite and LE negative. WBC 0-5 cells, squamous cells 0-5 cells. urine culture ordered. Does not need antibiotic for UTI as suspicion is very low. 11/04: Urine culture pending. As per the nursing staff patient could not swallow Flomax capsule therefore Proscar added. 11/05: Urine culture no growth. Flomax changed to doxazosin. Continue Proscar. Discussed with the nursing staff to teach self-catheterization every 4-6 hours with bladder scan with residual urine more than 200 mL. Need to follow-up urologist after discharge. 11/07/2023: Continue with medications, refuses Braun. 3. Left foot chronic wound with history of osteomyelitis: Patient follows in wound center with account clerk Dr. Guaman. Fortunately debridement of ulcer 1.8 x 0.7 x 0.7 cm on the left lateral foot. Patient was admitted in June 2023 for acute osteomyelitis of left foot. Continue antibiotic. 11/04: Enamel Buffer Dr. Parveen Guaman consulted. 4. Chronic anemia, mild macrocytic: H&H 12.9/42%. Platelet count 316,000. 5. CKD stage IIIb: BUN/creatinine 2.06. Estimated creatinine clearance 31 mL/min. Hold lisinopril. Avoid nephrotoxic medications. 11/04: Creatinine improved to 1.78. BUN 27. 6. 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 6. Hypertension: Blood pressure slightly elevated Home medication reviewed. 7. Dyslipidemia: On home pravastatin. DVT: Eliquis Charges/Coding Visit Charges Inpatient E&M: 10193 Subs Hosp L2
--- NOTE | 2023-11-09 14:38 | ST.MBS ---
Modified Barium Swallow Patient Information Study Date: 11/09/23 Study Time: 13:30 Direct Billable Minutes: 95 Total Minutes procedure & reportin Diagnosis: PNA J18.9; COPD J44.1 Referring Physician: [place] Michael Reason for Referral: Objectively assess swallow function, assess risk for aspiration, and determine recommendations for least restrictive diet textures and compensatory strategies to improve safety of swallow. Medical History: Marcos Oliva is a 73 y/o M with multiple comorbidities who came to [facility] ED 11/04/2023 predominantly for worsening shortness of breath and generalized weakness for a few days. Initially it was mainly on exertion but progressed to dyspnea at rest. Patient has chronic cough and attributes to his smoking with no change in frequency, severity, or sputum production. No fever. He denied any chest pain, pressure, or tightness. Patient also had urinary retention and felt suprapubic pressure/pain and required a straight catheterization. Abdominal discomfort resolved after straight cath. ST consulted due to swallowing difficulty. Pt has a hx notable for COPD and neck sx. During BSE, he was recommended regular textures / thin liquids w/ consideration for instrumental assessment in upcoming sessions. Current Diet Ordered: Regular textures / Thin liquids Dentition: Upper Dentures and Lower Dentures Mental Status: WNL Respiratory Status: Oxygenating on 2L/M nasal cannula Penetration-Aspiration Scale Penetration-Aspiration Scale: OBJECTIVE ASSESSMENT OF SWALLOW FUNCTION (QUANTITATIVE ? PER TRIAL): PENETRATION / ASPIRATION SCALE (SURESH): 1 = does not enter airway 2 = enters airway/above vocal folds/ejected 3 = enters airway/above vocal folds/not ejected 4 = enters airway/contacts vocal folds/ejected 5 = enters airway/contacts vocal folds/not ejected 6 = enters airway/below vocal folds/ejected 7 = enters airway/below vocal folds/not ejected despite effort 8 = enters airway/below vocal folds/no effort VIDEOFLOROSCOPIC SCALE SCORE (SURESH): Grade I = aspiration of material that has penetrated into the laryngeal vestibule, intact cough reflex Grade II = aspiration < 10 % of the bolus, intact cough reflex Grade III = aspiration of < 10 % of the bolus, reduced cough reflex or aspiration of > 10 % of the bolus, intact cough reflex Grade IV = aspiration of > 10 % of the bolus, reduced cough reflex Penetration-Aspiration Scale Score Thin Liquid via teaspoon: Result: 1= does not enter airway Thin Liquid via teaspoon Trial 2: Result: 1= does not enter airway Thin Liquid via large single sip: cup: Result: 1= does not enter airway [place] Thick Liquid via large single sip: cup: Result: 1= does not enter airway Pudding via teaspoon: Result: 1= does not enter airway Comment: Esophageal screen - Retention in lower esophagus w/ retrograde flow to mid esophagus. Thin Liquid via single sip: straw: Result: 1= does not enter airway 1/2 Cookie: Result: 1= does not enter airway Comment: Esophageal screen - retention in the middle and lower esophagus w/ retrograde flow. Thin Liquid via single sip: straw Trial 2: Result: 1= does not enter airway Comment: Esophageal screen - retention in the middle and lower esophagus w/ retrograde flow to the upper-mid esophagus. Oral Phase Labial Seal: Escape beyond mid-chin Tongue Control During Bolus Hold: Posterior escape of greater than half of bolus Bolus Preparation/Mastication: Slow prolonged chewing/mashing with complete recollection (posterior loss to the pharynx during chewing) Bolus Transport/Lingual Motion: Repetitive/disorganized tongue motion Oral Residue: Residue collection on oral structures Pharyngeal Phase Initiation of Pharyngeal Swallow: Bolus head in pyriforms Soft Palate Elevation: Trace column of contrast/air between soft palate and pharyngeal wall Laryngeal Elevation: Comp. Superior move thyroid cart w/comp. apprx arytenoid cart-epig pet Anterior Hyoid Excursion: Partial anterior movement Epiglottic Movement: Complete inversion Laryngeal Vestibule Closure at Height of Swallow: Complete; no air/contrast in laryngeal vestibule Pharyngeal Stripping Wave: Present - diminished Pharyngoesophageal Segment Opening: Parital distension and partial duration; parital obstruction of flow Tongue Base Retraction: Narrow column of contrast between tongue base & post. pharyngeal wall Pharyngeal Residue: Collection of residue within or on pharyngeal structures Esophageal Phase Esophageal Clearance: Esophageal retention w/ retrograde flow below pharyngoesophageal seg. Diagnosis/Impression Diagnosis: Mild oropharyngeal dysphagia R13.12; Esophageal dysphagia R13.14 Impression: The oral phase is primarily marked by... -Decreased bolus control w/ posterior loss of >1/2 of all consistencies to the pharynx prior to swallow onset. -Lingual pumping for A-P transport. -Prolonged, but complete mastication. -Decreased labial seal w/ anterior loss of pudding past mid-chin. The pharyngeal phase is primarily marked by... -Delayed swallow onset. -Mild-moderate pharyngeal residue due to decreased tongue base retraction and pharyngeal stripping wave. Independent use of double swallow to clear majority of residues. -No laryngeal penetration and aspiration; however, TELEVISION ANTENNA INSTALLER is concerned the patient is at risk for reflux aspiration due to esophageal deficits below. The esophageal phase is primarily marked by... -Retention of pudding, cookie, and thin liquids w/ retrograde flow. Liquid wash was not effective in clearing esophageal retention. -CP bar at the level of C5-C6 w/ trace retention in UES - CP bar did not appear to greatly impact bolus clearance during the MBSS. Recommendations Diet: Regular Textures and Thin Liquids Comment: If sensation of retention or reflux, stop meal and resume at a later time. Compensatory Strategies: Small Bites, Small Sips, Slow Rate, Multiple Swallows and Sitting upright (DURING AND 60 MIN AFTER MEAL) Supervision: Distant Supervision Need for Skilled Speech Therapy Services: Yes Recommended Referrals: GI Consult (TELEVISION ANTENNA INSTALLER informed Dr. Michael of esophageal deficits via backline message and phone call) Education Completed: 1. Described result of evaluation., 2. Pt understands evaluation & agrees with goals and treatment plan. and 7. Pt requires further education on strategies & risks. Status Active ST Patient: Active Contact Information [facility] Speech Therapy:: Ashlyn Lopez M.A. [facility]-TELEVISION ANTENNA INSTALLER? Speech-Language Pathologist?? [facility] [address] [place] [address]? [email or web address]?? [phone]
--- NOTE | 2023-11-09 15:23 | CHAPLAIN ---
Type of Pastoral Visit ___ Initial Visit ___ Follow-up Visit ___ On-call Visit ___ General Patient Visit ___ Spiritual Assessment ___ Family Conference ___ Bereavement ___ Rapid Response ___ Code Blue ___ Other (describe below) Pastoral Care Referral From ___ Patient ___ Family ___ Nurse ___ Physician ___ Wastewater Supervisor ___ International Bank Manager ___ Other (describe below) Sacrament/Intervention ___ Active listening ___ Anointing ___ Mu-Ism ___ Bereavement ___ Communion ___ Deisi exploration ___ ___ Life review ___ Prayer ___ Reconciliation ___ Sacrament of Sick ___ Supportive presence ___ Wedding ___ Other (describe below) Pastoral Comments left a calling card as patient and bed are out of the room
[2023-11-09] MEDS: Doxazosin 4 MG Tablet PO (18:17)
[2023-11-09] MEDS: Pravastatin 20 MG Tablet 10 MG PO (21:12)
[2023-11-09] MEDS: Pramipexole Di-HCl 1 MG Tablet PO (21:13)
[2023-11-10] VITALS (13 sets, daily range): BP systolic 104–120; BP diastolic 62–82; PULSE 69–78; RESP 16–18; TEMP 35.7–36.5; O2SAT 92–100
[2023-11-10] MEDS: Ipratropium/Albuterol Sulfate 3 ML AMPUL.NEB INHALATION ×6 (02:50→23:58)
[2023-11-10] MEDS: Acetaminophen 500 MG Tablet 1000 MG PO ×3 (05:51→20:41)
[2023-11-10] MEDS: Gabapentin 100 MG Capsule 200 MG PO ×2 (09:07→16:02)
[2023-11-10] MEDS: Polyethylene Glycol 3350 17 GM PACKET PO (09:08)
[2023-11-10] MEDS: predniSONE 20 MG Tablet 40 MG PO (09:28)
[2023-11-10] MEDS: Famotidine 20 MG Tablet PO (09:29)
[2023-11-10] MEDS: Cholecalciferol (VIT D3) 25 MCG TABLET (1,000 UNITS) PO (09:29)
[2023-11-10] MEDS: buPROPion (XL) 150 MG TABLET.XL PO (09:29)
[2023-11-10] MEDS: Metoprolol Tartrate 50 MG Tablet PO ×2 (09:29→20:41)
[2023-11-10] MEDS: APIXABAN 5 MG TABLET PO ×2 (09:29→20:41)
[2023-11-10] MEDS: Finasteride 5 MG Tablet PO (09:29)
[2023-11-10] MEDS: amLODIPine 2.5 MG Tablet PO (09:29)
[2023-11-10] MEDS: Aspirin 81 MG TAB.CHEW PO (09:30)
[2023-11-10] MEDS: Doxycycline 100 MG CAPSULE PO (09:30)
[2023-11-10] MEDS: Folic Acid 1 MG Tablet 0.5 MG PO (09:30)
[2023-11-10] MEDS: Senna/Docusate Sodium 1 Tablet 2 TABLET PO ×2 (09:36→20:42)
--- NOTE | 2023-11-10 10:34 | PN.HOSP_ITS ---
Subjective Subjective Doing well, no new issues overnight. Says his breathing is a little bit better Objective Data Objective Data Vital Signs: Vital Signs Temp Pulse Resp BP Pulse Ox O2 Del Method O2 Flow Rate 97.7 F L 75 16 110/62 99 Nasal Cannula 2 11/10/23 08:30 11/10/23 09:29 11/10/23 08:30 11/10/23 08:30 11/10/23 08:30 11/10/23 09:42 11/10/23 09:42 Oxygen Flow Rate (L/min) 2 Oxygen Delivery Method Nasal Cannula Weight: 139 lb 8.842 oz Body Mass Index (BMI) 20.6 Intake & Output: Intake and Output for Last 24 Hours 11/09/23 11/10/23 11/11/23 03:59 03:59 03:59 Intake Total 830 / 830 760 / 760 350 / 350 Output Total 600 / 600 Balance 230 / 230 760 / 760 350 / 350 Lab / Micro Data 11/09/23 05:55 11/08/23 06:20 Micro: Microbiology 11/04/23 10:55 Blood Culture (Wb) - Right Hand Blood Culture - Final No growth in 5 days. 11/04/23 11:09 Urine Catheter - Catheter Urine Culture - Final Culture exhibits no growth. 11/04/23 13:35 Mucosa - Nose SARS-CoV-2, Influenza & RSV (PCR) - Final Physical Exam Narrative General: Alert, Oriented x3, Cooperative, No apparent distress HEENT: Atraumatic, PERRLA, EOMI, Normocephalic Oral: Moist Mucosa Neck: Supple, No JVD Lungs: Diminished, Normal air movement, No rhonchi, scattered wheeze, No rales Cardiovascular: Regular rate, Regular Rhythm, Normal S1, Normal S2, No murmurs Abdomen: Soft, Non Tender, Non-Distended, No Hepato-splenomegaly Extremities: No edema, Capillary Refill Less than 3 Seconds Skin: Left foot ulceration Musculoskeletal: No Tenderness to Palpation of Joints or Extremities Neurological: No focal neurological deficits, Motor Exam 5/5 strength throughout, Sensory exam intact to light touch and pain Psych/Mental Status: Normal Affect, Appropriate Assessment & Plan Assessment/Plan (1) COPD exacerbation: PLAN: Plan 1. COPD exacerbation as change in shortness of breath/dyspnea at rest: Patient is being admitted in PCU. Chest x-ray individually reviewed does not show acute abnormality. Twelve-lead EKG shows NSR at 87 bpm, QTc 430 ms. Patient is being managed on scheduled bronchodilator, IV Solu-Medrol, Mucinex, incentive spirometry and Pep. Triple PCR for SARS-CoV-2, flu and RSV is pending. Blood culture and sputum culture ordered. Empirically on IV Zithromax. Mild leukocytosis with immature granulocytes 1.5%. 11/04: Leukocytosis improved. Immature granulocytes improving. Triple PCR for SARS-CoV-2, flu and RSV are negative. Blood culture pending. 11/05: Blood culture negative for 48 hours. Urine culture does not show growth. Zithromax was changed to doxycycline. 11/07/2023: Will change Solu-Medrol to prednisone, PT/OT recommending SNF placement 11/08/2023: Doing well, continue with the prednisone. Planning for SNF placement 11/09/2023: Awaiting SNF placement 2. Urinary retention most likely due to: Patient required straight cath. UA is benign with glucosuria, nitrite and LE negative. WBC 0-5 cells, squamous cells 0-5 cells. urine culture ordered. Does not need antibiotic for UTI as suspicion is very low. 11/04: Urine culture pending. As per the nursing staff patient could not swallow Flomax capsule therefore Proscar added. 11/05: Urine culture no growth. Flomax changed to doxazosin. Continue Proscar. Discussed with the nursing staff to teach self-catheterization every 4-6 hours with bladder scan with residual urine more than 200 mL. Need to follow-up urologist after discharge. 11/07/2023: Continue with medications, refuses Braun. 3. Left foot chronic wound with history of osteomyelitis: Patient follows in wound center with auxiliary powerplant operator Dr. Guaman. Fortunately debridement of ulcer 1.8 x 0.7 x 0.7 cm on the left lateral foot. Patient was admitted in June 2023 for acute osteomyelitis of left foot. Continue antibiotic. 11/04: Shoemaking Finisher Dr. Parveen Guaman consulted. 11/10/2023: All cultures so far negative will discontinue doxycycline 4. Chronic anemia, mild macrocytic: H&H 12.9/42%. Platelet count 316,000. 5. CKD stage IIIb: BUN/creatinine 2.06. Estimated creatinine clearance 31 mL/min. Hold lisinopril. Avoid nephrotoxic medications. 11/04: Creatinine improved to 1.78. BUN 27. 6. 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 6. Hypertension: Blood pressure slightly elevated Home medication reviewed. 7. Dyslipidemia: On home pravastatin. 8. Failed modified barium swallow ? Will consult gastroenterology for EGD and evaluation ? This will push back discharge plans DVT: Eliquis Charges/Coding Visit Charges Inpatient E&M: 36463 Subs Hosp L2
--- NOTE | 2023-11-10 11:20 | CASEMGMT ---
Insurance is requesting a peer to peer for patient prior to making a decision. SW notified physician and physician said patient is now not medically ready. SW notified Avenue peer to peer is not going to be done as patient is not medically ready. Tammy Mallory CROP DUSTER HELPERMckenna CARRENO
--- NOTE | 2023-11-10 13:42 | CHAPLAIN ---
Type of Pastoral Visit _x__ Initial Visit ___ Follow-up Visit ___ On-call Visit ___ General Patient Visit ___ Spiritual Assessment ___ Family Conference ___ Bereavement ___ Rapid Response ___ Code Blue ___ Other (describe below) Pastoral Care Referral From _x_ Patient ___ Family ___ Nurse ___ Physician ___ Mobile Home Laborer ___ Childrens Club Attendant ___ Other (describe below) Sacrament/Intervention _x__ Active listening ___ Anointing ___ Quaker ___ Bereavement ___ Communion ___ Deisi exploration ___ _x__ Life review _x__ Prayer ___ Reconciliation ___ Sacrament of Sick ___ Supportive presence ___ Wedding ___ Other (describe below) Pastoral Comments Patient is welcoming and appears to remember that he spoke to this selling manager in previous admission; pt however has significant issues in staying focused on the conversation and even said that; pt rambles on in his speaking and declares that's what he recognizes himself; pt states that a prayer would be most folues
--- NOTE | 2023-11-10 14:09 | CASEMGMT ---
Discharge Planning Avenue has obtained auth to admit. It is good 11/09-11/11. Katie Conn DC Planning Asst.
[2023-11-10] MEDS: Doxazosin 4 MG Tablet PO (16:13)
[2023-11-10] MEDS: Pravastatin 20 MG Tablet 10 MG PO (20:41)
[2023-11-10] MEDS: Pramipexole Di-HCl 1 MG Tablet PO (20:41)
[2023-11-11] VITALS (19 sets, daily range): BP systolic 71–149; BP diastolic 51–82; PULSE 65–86; RESP 16–20; TEMP 36–36.4; O2SAT 93–100; BMI 20.6
[2023-11-11] MEDS: Ipratropium/Albuterol Sulfate 3 ML AMPUL.NEB INHALATION ×4 (07:09→23:26)
[2023-11-11 07:17] LABS: Absolute Lymphocyte Count 2.12 X10^3/uL (0.83-4.51); Absolute Neutrophil Count 7.7 X10^3/uL (2.0-7.7); Basophil# 0.03 X10^3/uL; Basophil% 0.3 % (0-1); Eosinophil# 0.16 X10^3/uL; Eosinophils% 1.4 % (0-5); Hematocrit 39.3 % (40-54); Hemoglobin 12.6 g/dL (13.0-16.5); Lymphocyte # 2.12 X10^3/ul (0.83-4.51); Lymphocyte % 18.9 % (19-41); Mean Corp Hgb Conc 32.1 g/dL (32-36); Mean Corpuscular Hgb 30.9 pg (27.0-32.0); Mean Corpuscular Volume 96.3 fL (80-94); Mean Platelet Vol. 9.8 fl (6.2-12.0); Monocyte# 0.91 X10^3/uL; Monocyte% 8.1 % (0-10); NRBC Flagged by Analyzer 0 % (0-5); Neutrophil # 7.66 X10^3/uL (2.7-7.7); Neutrophil % 68.1 % (47-70); Platelet Count 288 K/mm3 (150-450); RBC Distribution Width CV 14.5 % (11.6-14.6); RBC Distribution Width SD 50.7 fl (35.1-43.9); Red Blood Count 4.08 M/mm3 (4.6-6.2); White Blood Count 11.2 K/mm3 (4.4-11.0)
[2023-11-11 07:22] LABS: Anion Gap 5 (5-15); BUN 39 mg/dL (7-18); BUN/Creat Ratio 29.3 RATIO (10-20); Calcium,Total 9.3 mg/dL (8.5-10.1); Chloride 100 mmol/L (98-107); Creatinine, Serum 1.33 mg/dL (0.70-1.30); EST Glomerular Filtration Rate 56 mL/min (>60); Est Glom Filt Rate - Afr Amer 68 mL/min (>60); Estimated Creatinine Clearance 45.61 ml/min; Glucose 72 mg/dL (74-106); Potassium 4.6 mmol/L (3.5-5.1); Sodium Level 136 mmol/L (136-145)
--- NOTE | 2023-11-11 10:15 | PN.HOSP_ITS ---
Subjective Subjective Doing well, no issues overnight Objective Data Objective Data Vital Signs: Vital Signs Temp Pulse Resp BP Pulse Ox O2 Del Method O2 Flow Rate 96.8 F L 78 20 H 149/82 H 97 Nasal Cannula 3 11/11/23 04:10 11/11/23 07:09 11/11/23 07:09 11/11/23 04:10 11/11/23 07:09 11/11/23 07:09 11/11/23 09:30 Oxygen Flow Rate (L/min) [ 2 AMBULATING with Oxygen #1] Oxygen Flow Rate (L/min) 3 Oxygen Delivery Method Nasal Cannula Weight: 139 lb 8.842 oz Body Mass Index (BMI) 20.6 Intake & Output: Intake and Output for Last 24 Hours 11/10/23 11/11/23 11/12/23 03:59 03:59 03:59 Intake Total 760 / 760 350 / 350 Output Total 500 / 500 Balance 760 / 760 -150 / -150 Lab / Micro Data 11/11/23 05:29 11/11/23 05:29 Labs: Laboratory Results - last 24 hr 11/11/23 05:29: WBC 11.2 H, RBC 4.08 L, Hgb 12.6 L, Hct 39.3 L, MCV 96.3 H, MCH 30.9, MCHC 32.1, RDW Std Deviation 50.7 H, RDW Coeff of Meek 14.5, Plt Count 288, MPV 9.8, Immature Gran % (Auto) 3.200 H, Neut % (Auto) 68.1, Lymph % (Auto) 18.9 L, [place] % (Auto) 8.1, Eos % (Auto) 1.4, Baso % (Auto) 0.3, Absolute Neuts (auto) 7.7, Absolute Lymphs (auto) 2.12, Nucleated RBC % 0, Sodium 136, Potassium 4.6, Chloride 100, Carbon Dioxide 31.0, Anion Gap 5, BUN 39 H, Creatinine 1.33 H, Estim Creat Clear Calc 45.61, Est GFR (MDRD) Af Amer 68, Est GFR (MDRD) Non-Af 56 L, BUN/Creatinine Ratio 29.3 H, Glucose 72 L, Calcium 9.3 Micro: Microbiology 11/04/23 10:55 Blood Culture (Wb) - Right Hand Blood Culture - Final No growth in 5 days. 11/04/23 11:09 Urine Catheter - Catheter Urine Culture - Final Culture exhibits no growth. 11/04/23 13:35 Mucosa - Nose SARS-CoV-2, Influenza & RSV (PCR) - Final Physical Exam Narrative General: Alert, Oriented x3, Cooperative, No apparent distress HEENT: Atraumatic, PERRLA, EOMI, Normocephalic Oral: Moist Mucosa Neck: Supple, No JVD Lungs: Diminished, Normal air movement, No rhonchi, scattered wheeze, No rales Cardiovascular: Regular rate, Regular Rhythm, Normal S1, Normal S2, No murmurs Abdomen: Soft, Non Tender, Non-Distended, No Hepato-splenomegaly Extremities: No edema, Capillary Refill Less than 3 Seconds Skin: Left foot ulceration Musculoskeletal: No Tenderness to Palpation of Joints or Extremities Neurological: No focal neurological deficits, Motor Exam 5/5 strength throughout, Sensory exam intact to light touch and pain Psych/Mental Status: Normal Affect, Appropriate Assessment & Plan Assessment/Plan (1) COPD exacerbation: PLAN: Plan 1. COPD exacerbation as change in shortness of breath/dyspnea at rest: Patient is being admitted in PCU. Chest x-ray individually reviewed does not show acute abnormality. Twelve-lead EKG shows NSR at 87 bpm, QTc 430 ms. Patient is being managed on scheduled bronchodilator, IV Solu-Medrol, Mucinex, incentive spirometry and Pep. Triple PCR for SARS-CoV-2, flu and RSV is pending. Blood culture and sputum culture ordered. Empirically on IV Zithromax. Mild leukocytosis with immature granulocytes 1.5%. 11/04: Leukocytosis improved. Immature granulocytes improving. Triple PCR for SARS-CoV-2, flu and RSV are negative. Blood culture pending. 11/05: Blood culture negative for 48 hours. Urine culture does not show growth. Zithromax was changed to doxycycline. 11/07/2023: Will change Solu-Medrol to prednisone, PT/OT recommending SNF placement 11/08/2023: Doing well, continue with the prednisone. Planning for SNF placement 11/09/2023: Awaiting SNF placement 11/11/2023: Respiratory status is improved, he does feel better 2. Urinary retention most likely due to: Patient required straight cath. UA is benign with glucosuria, nitrite and LE negative. WBC 0-5 cells, squamous cells 0-5 cells. urine culture ordered. Does not need antibiotic for UTI as suspicion is very low. 11/04: Urine culture pending. As per the nursing staff patient could not swallow Flomax capsule therefore Proscar added. 11/05: Urine culture no growth. Flomax changed to doxazosin. Continue Proscar. Discussed with the nursing staff to teach self-catheterization every 4-6 hours with bladder scan with residual urine more than 200 mL. Need to follow-up urologist after discharge. 11/07/2023: Continue with medications, refuses Braun. 3. Left foot chronic wound with history of osteomyelitis: Patient follows in wound center with truck crane operator Dr. Guaman. Fortunately debridement of ulcer 1.8 x 0.7 x 0.7 cm on the left lateral foot. Patient was admitted in June 2023 for acute osteomyelitis of left foot. Continue antibiotic. 11/04: Hazardous Material Technician Dr. Parveen Guaman consulted. 11/10/2023: All cultures so far negative will discontinue doxycycline 4. Chronic anemia, mild macrocytic: H&H 12.9/42%. Platelet count 316,000. 5. CKD stage IIIb: BUN/creatinine 2.06. Estimated creatinine clearance 31 mL/min. Hold lisinopril. Avoid nephrotoxic medications. 11/04: Creatinine improved to 1.78. BUN 27. 6. 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 6. Hypertension: Blood pressure slightly elevated Home medication reviewed. 7. Dyslipidemia: On home pravastatin. 8. Failed modified barium swallow ? Will consult gastroenterology for EGD and evaluation ? This will push back discharge plans ? Will plan for EGD on 11/11/2023 DVT: Eliquis Charges/Coding Visit Charges Inpatient E&M: 38431 Subs Hosp L2
[2023-11-11] MEDS: Polyethylene Glycol 3350 17 GM PACKET PO (10:40)
[2023-11-11] MEDS: Cholecalciferol (VIT D3) 25 MCG TABLET (1,000 UNITS) PO (10:41)
[2023-11-11] MEDS: Senna/Docusate Sodium 1 Tablet 2 TABLET PO ×2 (10:41→20:21)
[2023-11-11] MEDS: APIXABAN 5 MG TABLET PO ×2 (10:41→22:15)
[2023-11-11] MEDS: Famotidine 20 MG Tablet PO (10:41)
[2023-11-11] MEDS: Metoprolol Tartrate 50 MG Tablet PO ×2 (10:41→20:22)
[2023-11-11] MEDS: buPROPion (XL) 150 MG TABLET.XL PO (10:41)
[2023-11-11] MEDS: predniSONE 20 MG Tablet 40 MG PO (10:41)
[2023-11-11] MEDS: Folic Acid 1 MG Tablet 0.5 MG PO (10:41)
[2023-11-11] MEDS: Finasteride 5 MG Tablet PO (10:41)
[2023-11-11] MEDS: amLODIPine 2.5 MG Tablet PO (10:42)
[2023-11-11] MEDS: Aspirin 81 MG TAB.CHEW PO (10:42)
[2023-11-11] MEDS: Gabapentin 100 MG Capsule 200 MG PO (10:52)
[2023-11-11] MEDS: Calcium Carbonate 500 MG Tablet PO (10:52)
--- NOTE | 2023-11-11 12:42 | PCM.PROGNOTE ---
Subjective Subjective Mr. Oliva is a 73-year-old male seen at bedside today for follow-up evaluation of full-thickness ulceration to the lateral aspect of the left foot. Patient has kept the graft intact. Dressing shows no evidence of strikethrough. He admits to mild pain to the top of the left foot. Dressing has been changed by nursing staff. Denies trauma. Denies constitutional symptoms. No other pedal complaints at this time. Objective Data Objective Data Vital Signs: Vital Signs Temp Pulse Resp BP Pulse Ox O2 Del Method O2 Flow Rate 97.5 F L 68 16 119/65 100 Nasal Cannula 3 11/11/23 10:10 11/11/23 10:41 11/11/23 10:10 11/11/23 10:41 11/11/23 10:10 11/11/23 10:10 11/11/23 10:10 Oxygen Flow Rate (L/min) [ 2 AMBULATING with Oxygen #1] Oxygen Flow Rate (L/min) 3 Oxygen Delivery Method Nasal Cannula Weight: 63.3 kg Body Mass Index (BMI) 20.6 Intake & Output: Intake and Output for Last 24 Hours 11/09/23 11/10/23 11/11/23 23:59 23:59 23:59 Intake Total 760 / 760 350 / 350 Output Total 500 / 500 Balance 760 / 760 -150 / -150 Lab / Micro Data 11/11/23 05:29 11/11/23 05:29 Labs: Laboratory Results - last 24 hr 11/11/23 05:29: WBC 11.2 H, RBC 4.08 L, Hgb 12.6 L, Hct 39.3 L, MCV 96.3 H, MCH 30.9, MCHC 32.1, RDW Std Deviation 50.7 H, RDW Coeff of Meek 14.5, Plt Count 288, MPV 9.8, Immature Gran % (Auto) 3.200 H, Neut % (Auto) 68.1, Lymph % (Auto) 18.9 L, [place] % (Auto) 8.1, Eos % (Auto) 1.4, Baso % (Auto) 0.3, Absolute Neuts (auto) 7.7, Absolute Lymphs (auto) 2.12, Nucleated RBC % 0, Sodium 136, Potassium 4.6, Chloride 100, Carbon Dioxide 31.0, Anion Gap 5, BUN 39 H, Creatinine 1.33 H, Estim Creat Clear Calc 45.61, Est GFR (MDRD) Af Amer 68, Est GFR (MDRD) Non-Af 56 L, BUN/Creatinine Ratio 29.3 H, Glucose 72 L, Calcium 9.3 Micro: Microbiology 11/04/23 10:55 Blood Culture (Wb) - Right Hand Blood Culture - Final No growth in 5 days. 11/04/23 11:09 Urine Catheter - Catheter Urine Culture - Final Culture exhibits no growth. 11/04/23 13:35 Mucosa - Nose SARS-CoV-2, Influenza & RSV (PCR) - Final Physical Exam Narrative Vascular: PT, peroneal arteries are biphasic on Doppler. AT and DP are monophasic on Doppler. CFT is 4 seconds. Nonpitting edema appreciated to the left lower extremity. Skin temperature gradient is warm to cool from proximal ankle to distal digits bilateral. Neurological: Light touch intact. Protective sensation is intact. Patient response to painful stimuli. Dermatological: Full-thickness ulceration left foot measuring 1.2 x 0.4 x 0.4 cm. Wound base is granular nature. Xerosis is appreciated to the left lower extremity. Excisional debridement down to and including subcutaneous tissue with a number 3 mm dermal curette to the left lateral full-thickness ulceration without incident. Predebridement measurement was sanguinous crust. Postdebridement measurement is 1.2 x 0.4 x 0.4 cm. Musculoskeletal: No palpatory tenderness appreciated to left lower extremity incision. No pain with calf compression Assessment & Plan Assessment/Plan (1) Non-pressure chronic ulcer of other part of left foot with fat layer exposed: PLAN: Patient was examined and evaluated. All findings were discussed with the patient. All questions were answered to the patient satisfaction. Excisional debridement down to and including subcutaneous tissue with a number 3 mm dermal curette to the left lateral full-thickness ulceration without incident. Predebridement measurement was sanguinous crust. Postdebridement measurement is 1.2 x 0.4 x 0.4 cm. No signs of infection at the level of the left foot. The graft was dressed with hydrogel, 4 x 4's, Saw and single-layer Thad bandage. Orders for dressing changes given to nursing staff. Wound shows no evidence of infection. No plan for surgical intervention at this time or during this hospital stay. Medicine: On board, medical management Patient is cleared from a podiatry perspective to discharge home when cleared by medicine team. Patient will follow-up with Dr. Guaman at the wound care center next Thursday. Please will call for appointment time. Thank you for letting me be involved in the patient's care.
[2023-11-11] MEDS: Acetaminophen 500 MG Tablet 1000 MG PO ×2 (13:26→20:20)
--- NOTE | 2023-11-11 17:59 | CON.PCM.GI_ITS ---
HPI Consult Data Date of Consult: 11/11/23 HPI Narrative Reason for Consultation: Failed swallow study HPI Narrative: DARRYN ROMAN, is a 73 M with multiple comorbidities came to ED predominantly for worsening shortness of breath, generalized weakness for few days. Initially it was mainly on exertion but progressed to dyspnea at rest. Patient has chronic cough and attributes to his smoking with no change in frequency, severity or sputum production. No fever. He denies any chest pain, pressure or tightness. Patient also has urinary retention and felt suprapubic pressure/pain and required a straight catheterization. Abdominal discomfort resolved after straight cath. Had 1 DuoNeb by EMS. Patient is still smokes about half pack per day, cut down from 4 packs/day in the past. he was diagnosed with COPD exacerbation. I was asked to see him because he failed a swallow study today. He was diagnosed with esophageal dysphagia after swallowing study showed esophageal retention with retrograde flow below the level of the pharynx esophageal segment. [facility] Medical History Depression Anxiety Smoker Sleep apnea Insulin resistance CKD stage 3b, GFR 30-44 ml/min Anemia Chronic kidney disease Chronic anticoagulation History of COPD Other specified peripheral vascular diseases Hx of blood clots HTN (hypertension) Asthma COPD (chronic obstructive pulmonary disease) Tobacco dependence syndrome COLD (chronic obstructive lung disease) Home Medications ?Medication ?Instructions ?Recorded ?Last Taken ?Type aspirin 81 mg chewable tablet 81 mg PO DAILY@0800 [facility] 02/03/14 11/04/23 History budesonide-formoterol HFA 160 2 puff PO BID COPD 02/03/14 11/04/23 History mcg-4.5 mcg/actuation aerosol inhaler (Symbicort) albuterol sulfate 90 mcg/actuation 2 puff inhalation Q4H PRN PRN Sob 08/24/18 11/04/23 History aerosol inhaler &/Or Wheezing apixaban 5 mg tablet 5 mg PO BID BLOOD THINNER 08/24/18 11/04/23 History lisinopril 20 mg tablet 20 mg PO DAILY bp 08/24/18 11/04/23 History metoprolol tartrate 50 mg tablet 50 mg PO BID HTN 08/24/18 11/04/23 History pravastatin 10 mg tablet 10 mg PO QHS HIGH CHOLESTEROL 10/04/22 11/04/23 History sucralfate 1 gram tablet (Carafate) 1 g PO TID GASTRIC ULCERS 30 days 10/24/22 11/03/23 Rx #90 tabs PEP device #1 ea 11/06/22 Unknown Rx folic acid 400 mcg tablet 0.4 mg PO DAILY DIETARY SUPPLEMENT 11/06/22 07/06/23 History prednisone 10 mg tablet 10 mg PO DAILY COPD 90 days #90 01/30/23 11/04/23 Rx tabs cyanocobalamin (vitamin B-12) 100 100 mcg PO DAILY VITAMIN SUPPLEMENT 04/16/23 07/06/23 History mcg tablet (Vitamin B-12) cholecalciferol (vitamin D3) 25 25 mcg PO DAILY DIETARY SUPPLEMENT 05/27/23 11/04/23 History mcg (1,000 unit) capsule (Vitamin D3) meropenem 1 gram intravenous 1 g IV Q12H 42 days 07/09/23 Unknown Rx solution acetaminophen 500 mg tablet 1,000 mg (2 x 500 mg) PO Q8 #0 tabs 07/15/23 Unknown Rx amlodipine 2.5 mg tablet 2.5 mg PO DAILY #0 tabs 07/15/23 11/04/23 Rx docusate sodium 100 mg capsule 100 mg PO BID #0 caps 07/15/23 Unknown Rx gabapentin 100 mg capsule 200 mg (2 x 100 mg) PO BIDCM #0 07/15/23 Unknown Rx caps pantoprazole 40 mg tablet,delayed 40 mg PO BID #0 tabs 07/15/23 Unknown Rx release pramipexole 0.5 mg tablet 1 mg (2 x 0.5 mg) PO QHS #0 tabs 07/15/23 11/03/23 Rx sennosides 8.6 mg-docusate sodium 2 tab PO BID PRN PRN Constipation 07/15/23 Unknown Rx 50 mg tablet (Stool #0 tabs Softener-Stimulant Laxative) sodium hypochlorite 0.25 % 1 applic topical DAILY #0 mL 07/15/23 Unknown Rx solution (HySept) ipratropium 0.5 mg-albuterol 3 mg 3 ml inhalation Q4H PRN shortness 10/05/23 Unknown Rx (2.5 mg base)/3 mL nebulization of breath or wheezing #540 mL soln bupropion HCl 150 mg 24 hr tablet, 150 mg PO DAILY Anxiety 11/04/23 11/04/23 History extended release guaifenesin 1,200 mg tablet, 1,200 mg PO BID Mucus 11/04/23 11/04/23 History extended release 12 hr (Mucinex) nicotine 21 mg/24 hr daily 1 patch topical DAILY smoker 11/04/23 Unknown History transdermal patch ropinirole 0.5 mg tablet 0.5 mg PO TID Restless legs 11/04/23 11/04/23 History Allergy/AdvReac Type Severity Reaction Status Date / Time azithromycin (From Zithromax) Allergy Swelling Verified 07/10/23 08:13 Penicillins Allergy Hives Verified 07/10/23 08:13 shellfish derived Allergy Hives Verified 07/10/23 08:13 venom-honey bee (bee venom Allergy Hives Verified 07/10/23 08:13 (honey bee)) Family History Other Asthma CAD (coronary artery disease) CVA (cerebral vascular accident) Cancer Diabetes Heart disease Hypertension Myocardial infarction Surgical History History of appendectomy Heart valve replaced History of hand surgery H/O neck surgery Social History Smoking Status: Current every day smoker tobacco type: cigarettes Tobacco: How many years used: 62 alcohol intake: current alcohol intake frequency: a few times a week Alcohol type: beer seatbelt use: always ROS ROS Narrative Constitutional: Reports fatigue and weakness. No fever. HEENT: Reports systems reviewed and no addt'l complaints, except as documented Respiratory/Chest: Mild wheezing rest as described in HPI CVS: No chest pain pressure or tightness. Mild chest congestion. Gastrointestinal: Denies coffee ground emesis, hematemesis or vomiting Genitourinary: Suprapubic pain/discomfort. Patient had urinary retention. Required straight cath in the ED. Musculoskeletal: Denies acute joint pain or limited range of motion. No acute injury Neurologic: Denies seizure-like symptoms. skin: No ulcer. No rash Endocrinology: Reports systems reviewed and no addt'l complaints, except as documented Hematologic/Lymphatic: Reports systems reviewed and no addt'l complaints, except as documented Rest 14 ROS are negative except as mentioned in HPI Physical Exam Narrative General: Alert, Oriented x3, Cooperative, No apparent distress HEENT: Atraumatic, PERRLA, EOMI, Normocephalic Oral: Moist Mucosa Neck: Supple, No JVD Lungs: Diminished, Normal air movement, No rhonchi, scattered wheeze, No rales Cardiovascular: Regular rate, Regular Rhythm, Normal S1, Normal S2, No murmurs Abdomen: Soft, Non Tender, Non-Distended, No Hepato-splenomegaly Extremities: No edema, Capillary Refill Less than 3 Seconds Skin: Left foot ulceration Musculoskeletal: No Tenderness to Palpation of Joints or Extremities Neurological: No focal neurological deficits, Motor Exam 5/5 strength throughout, Sensory exam intact to light touch and pain Psych/Mental Status: Normal Affect, Appropriate Lab / Micro Data 11/11/23 05:29 11/11/23 05:29 Labs: Laboratory Results - last 24 hr 11/11/23 05:29: WBC 11.2 H, RBC 4.08 L, Hgb 12.6 L, Hct 39.3 L, MCV 96.3 H, MCH 30.9, MCHC 32.1, RDW Std Deviation 50.7 H, RDW Coeff of Meek 14.5, Plt Count 288, MPV 9.8, Immature Gran % (Auto) 3.200 H, Neut % (Auto) 68.1, Lymph % (Auto) 18.9 L, [place] % (Auto) 8.1, Eos % (Auto) 1.4, Baso % (Auto) 0.3, Absolute Neuts (auto) 7.7, Absolute Lymphs (auto) 2.12, Nucleated RBC % 0, Sodium 136, Potassium 4.6, Chloride 100, Carbon Dioxide 31.0, Anion Gap 5, BUN 39 H, Creatinine 1.33 H, Estim Creat Clear Calc 45.61, Est GFR (MDRD) Af Amer 68, Est GFR (MDRD) Non-Af 56 L, BUN/Creatinine Ratio 29.3 H, Glucose 72 L, Calcium 9.3 Assessment & Plan Assessment/Plan (1) COPD exacerbation: (2) Esophageal dysphagia: PLAN: Plan This is a 73-year-old gentleman admitted for shortness of breath and cough which is not new for few days. Patient is still smokes about half pack per day, cut down from 4 packs/day in the past. COPD exacerbation as change in shortness of breath/dyspnea at rest: Patient on IV fluids and IV antibiotics. Seems to be close to his baseline. Esophageal dysphagia. Differential diagnosis does include motility disorder, esophageal stricture, esophageal ring, eosinophilic esophagitis. He should undergo an upper endoscopy to evaluate his upper GI tract. He was explained alternatives, risk, benefits include not withstanding bleeding, infection, sepsis, perforation, need for more surgery . Have an ASA of 3. Charges/Coding Visit Charges Inpatient E&M: 16423 Init Hosp L3
--- NOTE | 2023-11-11 18:33 | PCM.PRE.AN2 ---
ASA Classification* ASA Classification ASA Classification: 3 Assessment & Plan Anesthesia* Anesthesia Assessment Anesthesia Assessment: Discussed sedation and/or anesthesia options, risks, benefits, and alternatives with patient/parents/legal guardian/POA. Questions invited. The patient/parents/legal guardian/POA seems to understand and agrees to proceed with anesthesia plan. Reviewed the physical assessment, medical history, allergy history and patient home medications list prior to surgery/procedure/anesthetic and documented any changes. Performed airway and anesthesia risk assessments. Anesthesia Type Anesthesia Type: MAC History Source History Obtained from:: Patient and Chart Anesthesia Focused Assessment* Temperature: 96.8 F Pulse Rate: 68 Blood Pressure: 123/74 Respiratory Rate: 16 Pulse Ox: 99 Oxygen Delivery Method: Room Air Airway Assessment Mouth opens: >3 cm Mallampati Score: III Teeth Condition: Full (Full dentures on top) and Partial (Partial on the bottom.) Neck Range of motion (ROM): Limited ROM (Severe decrease in extension) Focused Labs Anesthesia Preop lab: CBC WBC 11.2 K/mm3 (4.4-11.0) H 11/11/23 05:29 RBC 4.08 M/mm3 (4.6-6.2) L 11/11/23 05:29 Hgb 12.6 g/dL (13.0-16.5) L 11/11/23 05:29 Hct 39.3 % (40-54) L 11/11/23 05:29 Plt Count 288 K/mm3 (150-450) 11/11/23 05:29 CHEMISTRY Potassium 4.6 mmol/L (3.5-5.1) 11/11/23 05:29 Sodium 136 mmol/L (136-145) 11/11/23 05:29 Magnesium 2.3 mg/dL (1.6-2.6) 11/04/23 10:05 Phosphorus 4.7 mg/dL (2.5-4.9) 07/07/23 05:32 BUN 39 mg/dL (7-18) H 11/11/23 05:29 Creatinine 1.33 mg/dL (0.70-1.30) H 11/11/23 05:29 Glucose 72 mg/dL (74-106) L 11/11/23 05:29 POC Glucose 108 mg/dL (70-110) 08/25/18 10:17 TSH 0.59 uIU/mL (0.358-3.74) 10/14/11 05:20 COAG PT 15.5 SECONDS (11.7-14.9) H 07/07/23 05:32 Pre-Assessment Diagnosis/Proposed Procedure Planned Operative Procedure(s): Esophagogastroduodenoscopy. 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 When Was Last Pacemaker Check QUESTION #4 FULL TEXT: You/Your Family Experience fever (hyperthermia) with Anesthesia Last Oral Intake Last Oral intake: Last Oral Intake NPO since 14:10 11/11/23 14:02 Meds taken in AM with sips of water? Meds patient instructed to take am of surgery Any additional information?: Yes NPO since: 12:00 (Patient had broth and tea at noon. Patient also had ice cream at noon) PONV PONV - private branch exchange operator: PONV - private branch exchange operator Female HX of Motion Sickness HX of N/V After Surgery Non-Smoker Duration of Surgery greater than 60 minutes Number of Risk Factors PONV Score Height & Weight Height & Weight: Anesthesia: Height & Weight Height 5 ft 9 in 11/11/23 14:02 Weight: 63.3 kg 11/11/23 14:02 Body Mass Index (BMI) 20.6 11/11/23 14:02 Respiratory Assessment Respiratory Assessment - private branch exchange operator: Respiratory Tract Infection Hx - private branch exchange operator Hx Respiratory Tract Infection No 11/11/23 13:52 Any additional information?: Yes Hx Respiratory Tract Infection: Yes (Patient diagnosed with pneumonia about a week ago.) STOP Sleep Apnea STOP Sleep Apnea - private branch exchange operator: STOP Sleep Apnea - private branch exchange operator Hx Hypertension Yes 11/06/23 14:02 Hx Sleep Apnea No 07/10/23 12:25 CPAP No 07/10/23 12:00 BIPAP No 10/04/22 16:53 Do you snore loudly (louder than talking or can be heard Do you often feel tired/ fatigued/ sleepy during daytime? Has anyone observed you stop breathing during sleep? STOP Results QUESTION #5 FULL TEXT : Do you snore loudly (louder than talking or can be heard through closed doors)? 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 Specify any problems Hx of Preganancy in last 3 Months Nurse Filling Out Transfusion & Questions: Date: Time: Patient unable to answer at this time (ie. confused, unrespo /Reproduction History /Reproductive History - private branch exchange operator: /Reproductive Hx- private branch exchange operator Hx Now No 11/11/23 13:52 Gestational Age (in weeks): EDC: Hx Hx Para Hx Section SAB No 11/11/23 13:52 Active Medications Active Medications: Current Medications Generic Name Dose Route Start Last Admin Trade Name Ford PRN Reason Stop Dose Admin Acetaminophen 1,000 mg 11/04/23 17:05 11/11/23 13:26 Acetaminophen 500 Mg Tablet PO 1,000 mg Q8 SARAH Administration Albuterol/Ipratropium 3 ml 11/04/23 17:05 11/11/23 16:57 Ipratropium/Albuterol Sulfate 3 Ml Ampul.Neb INHALATION 3 ml Q4H.RT SARAH Administration Amlodipine Besylate 2.5 mg 11/05/23 10:00 11/11/23 10:42 Amlodipine 2.5 Mg Tablet PO 2.5 mg DAILY SARAH Administration Protocol Apixaban 5 mg 11/04/23 22:00 11/11/23 10:41 Apixaban 5 Mg Tablet PO 5 mg BID SARAH Administration Aspirin 81 mg 11/05/23 08:00 11/11/23 10:42 Aspirin 81 Mg Tab.Chew PO 81 mg DAILY@0800 SARAH Administration Bupropion HCl 150 mg 11/05/23 10:00 11/11/23 10:41 Bupropion (Xl) 150 Mg Tablet.Xl PO 150 mg DAILY SARAH Administration Calcium Carbonate 500 mg 11/07/23 20:29 11/11/23 10:52 Calcium Carbonate 500 Mg Tablet PO 500 mg Q4H PRN PRN Administration DYSPEPSIA/INDIGESTION Cholecalciferol 25 mcg 11/05/23 10:00 11/11/23 10:41 Cholecalciferol (Vit D3) 25 Mcg Tablet (1,000 Units) PO 25 mcg DAILY SARAH Administration Doxazosin Mesylate 4 mg 11/06/23 17:00 11/11/23 17:33 Doxazosin 4 Mg Tablet PO Not Given [facility] Protocol Famotidine 20 mg 11/06/23 22:00 11/11/23 10:41 Famotidine 20 Mg Tablet PO 20 mg DAILY SARAH Administration Finasteride 5 mg 11/05/23 13:15 11/11/23 10:41 Finasteride 5 Mg Tablet PO 5 mg DAILY [facility] Administration Folic Acid 0.5 mg 11/05/23 08:00 11/11/23 10:41 Folic Acid 1 Mg Tablet PO 0.5 mg BREAKFAST SARAH Administration Gabapentin 200 mg 11/04/23 17:05 11/11/23 17:33 Gabapentin 100 Mg Capsule PO Not [facility] Sodium Chloride 250 mls @ 15 mls/hr 11/04/23 16:59 IV .[id number] PRN Additional IVPB Infusion Lactated Ringer's 1,000 mls @ 15 mls/hr 11/11/23 17:30 IV .Q48H [facility] Metoprolol Tartrate 50 mg 11/04/23 22:00 11/11/23 10:41 Metoprolol Tartrate 50 Mg Tablet PO 50 mg BID SARAH Administration Protocol Nicotine 21 mg 11/05/23 10:00 11/11/23 10:39 Nicotine 21 Mg Patch TD 21 mg DAILY [facility] Administration Ondansetron HCl 4 mg 11/04/23 17:05 Ondansetron 4 Mg/2 Ml Vial IV Q8H PRN PRN NAUSEA/VOMITING Polyethylene Glycol 17 gm 11/05/23 11:15 11/11/23 10:40 Polyethylene Glycol 3350 17 Gm Packet PO 17 gm DAILY SARAH Administration Pramipexole Dihydrochloride 1 mg 11/04/23 22:00 11/10/23 20:41 Pramipexole Di-Hcl 1 Mg Tablet PO 1 mg QHS SARAH Administration Pravastatin Sodium 10 mg 11/04/23 22:00 11/10/23 20:41 Pravastatin 20 Mg Tablet PO 10 mg QHS SARAH Administration Prednisone 40 mg 11/08/23 08:00 11/11/23 10:41 Prednisone 20 Mg Tablet PO 40 mg BREAKFAST SARAH Administration Senna/Docusate Sodium 2 tablet 11/04/23 22:00 11/11/23 10:41 Senna/Docusate Sodium 1 Tablet PO 2 tablet BID SARAH Administration Sodium Chloride 10 - 40 ml 11/04/23 16:59 11/07/23 11:09 0.9% Saline Lock 10 Ml Syringe IV 10 ml UD PRN Administration SALINE FLUSH PFSH Medical History Depression Anxiety Smoker Sleep apnea Insulin resistance CKD stage 3b, GFR 30-44 ml/min Anemia Chronic kidney disease Chronic anticoagulation History of COPD Other specified peripheral vascular diseases Hx of blood clots HTN (hypertension) Asthma COPD (chronic obstructive pulmonary disease) Tobacco dependence syndrome COLD (chronic obstructive lung disease) Home Medications ?Medication ?Instructions ?Recorded ?Last Taken ?Type aspirin 81 mg chewable tablet 81 mg PO DAILY@0800 [facility] 02/03/14 11/04/23 History budesonide-formoterol HFA 160 2 puff PO BID COPD 02/03/14 11/04/23 History mcg-4.5 mcg/actuation aerosol inhaler (Symbicort) albuterol sulfate 90 mcg/actuation 2 puff inhalation Q4H PRN PRN Sob 08/24/18 11/04/23 History aerosol inhaler &/Or Wheezing apixaban 5 mg tablet 5 mg PO BID BLOOD THINNER 08/24/18 11/04/23 History lisinopril 20 mg tablet 20 mg PO DAILY bp 08/24/18 11/04/23 History metoprolol tartrate 50 mg tablet 50 mg PO BID HTN 08/24/18 11/04/23 History pravastatin 10 mg tablet 10 mg PO QHS HIGH CHOLESTEROL 10/04/22 11/04/23 History sucralfate 1 gram tablet (Carafate) 1 g PO TID GASTRIC ULCERS 30 days 10/24/22 11/03/23 Rx #90 tabs PEP device #1 ea 11/06/22 Unknown Rx folic acid 400 mcg tablet 0.4 mg PO DAILY DIETARY SUPPLEMENT 11/06/22 07/06/23 History prednisone 10 mg tablet 10 mg PO DAILY COPD 90 days #90 01/30/23 11/04/23 Rx tabs cyanocobalamin (vitamin B-12) 100 100 mcg PO DAILY VITAMIN SUPPLEMENT 04/16/23 07/06/23 History mcg tablet (Vitamin B-12) cholecalciferol (vitamin D3) 25 25 mcg PO DAILY DIETARY SUPPLEMENT 05/27/23 11/04/23 History mcg (1,000 unit) capsule (Vitamin D3) meropenem 1 gram intravenous 1 g IV Q12H 42 days 07/09/23 Unknown Rx solution acetaminophen 500 mg tablet 1,000 mg (2 x 500 mg) PO Q8 #0 tabs 07/15/23 Unknown Rx amlodipine 2.5 mg tablet 2.5 mg PO DAILY #0 tabs 07/15/23 11/04/23 Rx docusate sodium 100 mg capsule 100 mg PO BID #0 caps 07/15/23 Unknown Rx gabapentin 100 mg capsule 200 mg (2 x 100 mg) PO BIDCM #0 07/15/23 Unknown Rx caps pantoprazole 40 mg tablet,delayed 40 mg PO BID #0 tabs 07/15/23 Unknown Rx release pramipexole 0.5 mg tablet 1 mg (2 x 0.5 mg) PO QHS #0 tabs 07/15/23 11/03/23 Rx sennosides 8.6 mg-docusate sodium 2 tab PO BID PRN PRN Constipation 07/15/23 Unknown Rx 50 mg tablet (Stool #0 tabs Softener-Stimulant Laxative) sodium hypochlorite 0.25 % 1 applic topical DAILY #0 mL 07/15/23 Unknown Rx solution (HySept) ipratropium 0.5 mg-albuterol 3 mg 3 ml inhalation Q4H PRN shortness 10/05/23 Unknown Rx (2.5 mg base)/3 mL nebulization of breath or wheezing #540 mL soln bupropion HCl 150 mg 24 hr tablet, 150 mg PO DAILY Anxiety 11/04/23 11/04/23 History extended release guaifenesin 1,200 mg tablet, 1,200 mg PO BID Mucus 11/04/23 11/04/23 History extended release 12 hr (Mucinex) nicotine 21 mg/24 hr daily 1 patch topical DAILY smoker 11/04/23 Unknown History transdermal patch ropinirole 0.5 mg tablet 0.5 mg PO TID Restless legs 11/04/23 11/04/23 History Allergy/AdvReac Type Severity Reaction Status Date / Time azithromycin (From Zithromax) Allergy Swelling Verified 07/10/23 08:13 Penicillins Allergy Hives Verified 07/10/23 08:13 shellfish derived Allergy Hives Verified 07/10/23 08:13 venom-honey bee (bee venom Allergy Hives Verified 07/10/23 08:13 (honey bee)) Family History Other Asthma CAD (coronary artery disease) CVA (cerebral vascular accident) Cancer Diabetes Heart disease Hypertension Myocardial infarction Surgical History History of appendectomy Heart valve replaced History of hand surgery H/O neck surgery Social History Smoking Status: Current every day smoker tobacco type: cigarettes Tobacco: How many years used: 62 alcohol intake: current alcohol intake frequency: a few times a week Alcohol type: beer seatbelt use: always Review of Systems (Anesthesia) ROS Narrative System reviewed and no additional complaints, except as documented.
[2023-11-11] MEDS: Lactated Ringers 1,000 ML 15 ML IV (18:45)
--- NOTE | 2023-11-11 19:17 | OP.EGD_ITS ---
Patient Name: Marcos Oliva Procedure Date: 11/11/2023 6:25 PM Date of : 1950 Age: 73 Procedure: Upper GI endoscopy Indications: Dysphagia, Odynophagia Providers: Ramesh Conrad DO Medicines: Monitored Anesthesia Care Patient Profile: This is a 73 year old male. Refer to note in patient chart for documentation of history and physical. Patient has symptoms of acute odynophagia and acute regurgitation. Complications: No immediate complications. Procedure: Pre-Anesthesia Assessment: - Prior to the procedure, a History and Physical was performed, and patient medications and allergies were reviewed. The patient is competent. The risks and benefits of the procedure and the sedation options and risks were discussed with the patient. All questions were answered and informed consent was obtained. Patient identification and proposed procedure were verified by the physician in the pre-procedure area. Mental Status Examination: alert and oriented. Airway Examination: normal oropharyngeal airway and neck mobility. Respiratory Examination: clear to auscultation. CV Examination: normal. Prophylactic Antibiotics: The patient does not require prophylactic antibiotics. Prior Anticoagulants: The patient has taken no anticoagulant or antiplatelet agents except for NSAID medication. ASA Grade Assessment: III - A patient with severe systemic disease. After reviewing the risks and benefits, the patient was deemed in satisfactory condition to undergo the procedure. The anesthesia plan was to use monitored anesthesia care (MAC). Immediately prior to administration of medications, the patient was re-assessed for adequacy to receive sedatives. The heart rate, respiratory rate, oxygen saturations, blood pressure, adequacy of pulmonary ventilation, and response to care were monitored throughout the procedure. The physical status of the patient was re-assessed after the procedure. After obtaining informed consent, the endoscope was passed under direct vision. Throughout the procedure, the patient's blood pressure, pulse, and oxygen saturations were monitored continuously. The gastroscope was introduced through the mouth, and advanced to the second part of duodenum. The upper GI endoscopy was accomplished without difficulty. The patient tolerated the procedure well. Scope In: 7:10:54 PM Scope Out: 7:12:14 PM Total Procedure Duration Time 0 hours 1 minute 20 seconds Findings: Severe esophagitis with bleeding was found 20 to 40 cm from the incisors. The entire examined stomach was normal. A small hiatal hernia was present. No gross lesions were noted in the duodenal bulb. Impression: - Severe erosive esophagitis with bleeding. - Normal stomach. - Small hiatal hernia. - No gross lesions in the duodenal bulb. - No specimens collected. Recommendation: - [facility]. - Full liquid diet today. - Continue present medications. Procedure Code(s): --- Professional --- 57870, Esophagogastroduodenoscopy, flexible, transoral; diagnostic, including collection of specimen(s) by brushing or washing, when performed (separate procedure) CPT copyright 2021 [employer]. All rights reserved. The codes documented in this report are preliminary and upon client relations associate review may be revised to meet current compliance requirements. Ramesh Conrad DO 11/11/2023 7:16:40 PM This report has been signed electronically. Number of Addenda: 0 Note Initiated On: 11/11/2023 6:25 PM
--- NOTE | 2023-11-11 19:17 | OP.CCLET_ITS ---
11/11/2023 Cherelle Olmdeo Do Re : Upper GI endoscopy procedure for Marcos Oliva Dear Shara This procedure was performed on Saturday, November 11, 2023. My impressions and recommendations are as follows: Impressions : - Severe erosive esophagitis with bleeding. - Normal stomach. - Small hiatal hernia. - No gross lesions in the duodenal bulb. - No specimens collected. Recommendations : - [facility]. - Full liquid diet today. - Continue present medications. My findings are described in the full procedure note, which is enclosed. If I can be of further assistance, please feel free to contact me at . Sincerely, Ramesh Conrad, 11/11/2023 7:16:40 PM This report has been signed electronically.
--- NOTE | 2023-11-11 19:22 | PCM.POST.ANE ---
Anesthesia: Postop Eval I Current Vital Signs Temperature: 96.9 F Pulse Rate: 72 Blood Pressure: 78/51 Respiratory Rate: 16 Pulse Ox: 94 Oxygen Delivery Method: Nasal Cannula Oxygen Flow Rate (L/min): 2 Assessment Airway patent: Yes Spontaneous unlabored respirations: Yes Mental status: Asleep nausea: No Vomiting: No Anesthesia Complication: No Fluid Hydration Crystalloid volume administer (ml): 100 Total IV fluid infused: 100 Progress Note Anesthesia document: Postop Eval 1 completed: Yes
--- NOTE | 2023-11-11 19:33 | SUR.PHASEI ---
FULL LIQUID DIET ORDERED PER ENDO DISCHARGE INSTRUCTIONS WRITTEN BY DR. BORJAS FOR FULL LIQUID DIET TODAY.
--- NOTE | 2023-11-11 19:36 | PCM.POSTANE2 ---
Anesthesia Postop Eval I Sum Postop Eval Completion status Anesthesia document: Postop Eval 1 completed: Yes Anesthesia Postop Eval I Summary Anesthesia Postop Eval I Summary: Anesthesia Postop Eval I: Assessment Summary Airway patent Yes 11/11/23 19:26 Spontaneous unlabored Yes 11/11/23 19:26 respirations Mental status Asleep 11/11/23 19:26 nausea No 11/11/23 19:26 Vomiting No 11/11/23 19:26 Anesthesia Postop Eval I: Fluid Summary Crystalloid volume administer 100 11/11/23 19:26 (ml) Colloids volume administered ( ml) Blood Product volume administered (ml) Total IV fluid infused 100 11/11/23 19:26 Anesthesia Postop Eval I: Summary Notes Anesthesia Complication No 11/11/23 19:26 Anesthesia Complication Comment: Post-operative progress note Anesthesia: Postop Eval II Evaluation Mental status: Awake and Calm Pain Level: 0 nausea: No Vomiting: No Progress Note Post-operative progress note: Patient's blood pressure is improving with waking up. Currently 90/61. Patient is telling jokes. Complications Anesthesia Complication: No
[2023-11-11] MEDS: Pramipexole Di-HCl 1 MG Tablet PO (20:21)
[2023-11-11] MEDS: Pravastatin 20 MG Tablet 10 MG PO (20:22)
[2023-11-12] VITALS (8 sets, daily range): BP systolic 103–110; BP diastolic 69–72; PULSE 66–81; RESP 16–22; TEMP 36.1–36.6; O2SAT 93–99
[2023-11-12] MEDS: Acetaminophen 500 MG Tablet 1000 MG PO ×2 (05:07→13:15)
[2023-11-12] MEDS: Ipratropium/Albuterol Sulfate 3 ML AMPUL.NEB INHALATION ×4 (05:16→14:48)
[2023-11-12] MEDS: Aspirin 81 MG TAB.CHEW PO (10:24)
[2023-11-12] MEDS: amLODIPine 2.5 MG Tablet PO (10:24)
[2023-11-12] MEDS: Gabapentin 100 MG Capsule 200 MG PO ×2 (10:24→16:03)
[2023-11-12] MEDS: Famotidine 20 MG Tablet PO (10:25)
[2023-11-12] MEDS: predniSONE 20 MG Tablet 40 MG PO (10:25)
[2023-11-12] MEDS: Metoprolol Tartrate 50 MG Tablet PO (10:25)
[2023-11-12] MEDS: Folic Acid 1 MG Tablet 0.5 MG PO (10:25)
[2023-11-12] MEDS: Senna/Docusate Sodium 1 Tablet 2 TABLET PO (10:25)
[2023-11-12] MEDS: Polyethylene Glycol 3350 17 GM PACKET PO (10:26)
[2023-11-12] MEDS: APIXABAN 5 MG TABLET PO (10:26)
[2023-11-12] MEDS: buPROPion (XL) 150 MG TABLET.XL PO (10:26)
[2023-11-12] MEDS: Finasteride 5 MG Tablet PO (10:26)
[2023-11-12] MEDS: Cholecalciferol (VIT D3) 25 MCG TABLET (1,000 UNITS) PO (10:26)
[2023-11-12] MEDS: Menthol/Lanolin/Calamine/Znox 113 GM Tube 1 APPLIC TOPICAL (10:35)
--- NOTE | 2023-11-12 12:31 | PCM.TXEXTCAR ---
Diet Diet Order/Speech Therapy: 11/12/23 07:44 Diet: Regular - General Type of Dietary Supplement:: [place] Breakfast Diet Comments: 240mL luly. w/breakfast &dinner; Distant sup, sit upright 60min after meal Routine Orders/Code Status Routine Lab Work: CBC and BMP Code Status: Full Code Wound(s) Left Foot: Wound Type: Surgical Incision Therapies Physical Therapy: Eval and Treat Occupational Therapy: Eval and Treat Problem/Diagnosis (1) COPD exacerbation: Status: Chronic Code(s): J44.1 - Chronic obstructive pulmonary disease with (acute) exacerbation (2) Esophageal dysphagia: Status: Acute Code(s): R13.19 - Other dysphagia Plan 1. COPD exacerbation as change in shortness of breath/dyspnea at rest: Patient is being admitted in PCU. Chest x-ray individually reviewed does not show acute abnormality. Twelve-lead EKG shows NSR at 87 bpm, QTc 430 ms. Patient is being managed on scheduled bronchodilator, IV Solu-Medrol, Mucinex, incentive spirometry and Pep. Triple PCR for SARS-CoV-2, flu and RSV is pending. Blood culture and sputum culture ordered. Empirically on IV Zithromax. Mild leukocytosis with immature granulocytes 1.5%. 11/04: Leukocytosis improved. Immature granulocytes improving. Triple PCR for SARS-CoV-2, flu and RSV are negative. Blood culture pending. 11/05: Blood culture negative for 48 hours. Urine culture does not show growth. Zithromax was changed to doxycycline. 11/07/2023: Will change Solu-Medrol to prednisone, PT/OT recommending SNF placement 11/08/2023: Doing well, continue with the prednisone. Planning for SNF placement 11/09/2023: Awaiting SNF placement 11/11/2023: Respiratory status is improved, he does feel better 2. Urinary retention most likely due to: Patient required straight cath. UA is benign with glucosuria, nitrite and LE negative. WBC 0-5 cells, squamous cells 0-5 cells. urine culture ordered. Does not need antibiotic for UTI as suspicion is very low. 11/04: Urine culture pending. As per the nursing staff patient could not swallow Flomax capsule therefore Proscar added. 11/05: Urine culture no growth. Flomax changed to doxazosin. Continue Proscar. Discussed with the nursing staff to teach self-catheterization every 4-6 hours with bladder scan with residual urine more than 200 mL. Need to follow-up urologist after discharge. 11/07/2023: Continue with medications, refuses Braun. 3. Left foot chronic wound with history of osteomyelitis: Patient follows in wound center with shower maid Dr. Guaman. Fortunately debridement of ulcer 1.8 x 0.7 x 0.7 cm on the left lateral foot. Patient was admitted in June 2023 for acute osteomyelitis of left foot. Continue antibiotic. 11/04: [employer] [place] Dr. Parveen Guaman consulted. 11/10/2023: All cultures so far negative will discontinue doxycycline 4. Chronic anemia, mild macrocytic: H&H 12.9/42%. Platelet count 316,000. 5. CKD stage IIIb: BUN/creatinine 2.06. Estimated creatinine clearance 31 mL/min. Hold lisinopril. Avoid nephrotoxic medications. 11/04: Creatinine improved to 1.78. BUN 27. 6. 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 6. Hypertension: Blood pressure slightly elevated Home medication reviewed. 7. Dyslipidemia: On home pravastatin. 8. Failed modified barium swallow ? Will consult gastroenterology for EGD and evaluation ? This will push back discharge plans ? Will plan for EGD on 11/11/2023 DVT: Eliquis Allergies/Procedures Done in Hospital Allergies azithromycin (From Zithromax) Allergy (Verified 07/10/23 08:13) Swelling Penicillins Allergy (Verified 07/10/23 08:13) Hives shellfish derived Allergy (Verified 07/10/23 08:13) Hives venom-honey bee (bee venom (honey bee)) Allergy (Verified 07/10/23 08:13) Hives Procedures: EGD Type of Care/Length of Stay Estimated LOS: Convalescent Care Less Than 30 days Type of Care Needed: Skilled Rehab Potential: Good Prognosis: Good Additional Orders/Day of Discharge Day of Discharge: 11/12/23 Dietary and Speech Recommendations Dietitian Recommendations/Changes: Continue liberal regular diet to encourage improved PO at meals. Continue 240ml chocolate carnation breakfast BID with breakfast and dinner. Follow-up with weight as available. Discharge Plan Admission Admit Date/Time: 11/04/23 13:25 Attending Provider: [place] Michael Primary Care Provider: Cherelle Cutler Consulting Providers: Parveen Guaman; Mejia Lott Discharge Orders/Prescriptions Prescriptions: New prednisone 10 mg tablet 30 mg PO BREAKFAST Qty: 0 0RF Rx Instructions: 3 tabs daily for 3 days then 2 tabs daily for 3 days then 1 tablet daily for 3 days then half tab daily for 4 days Continued folic acid 400 mcg tablet 0.4 mg PO DAILY (DME) PEP device See Rx Instructions .ROUTE .MEDSUPPLY Qty: 1 0RF Rx Instructions: with training cyanocobalamin (vitamin B-12) [Vitamin B-12] 100 mcg tablet 100 mcg PO DAILY Patient Comments: TAKE 1 TABLET BY MOUTH EVERY DAY aspirin 81 MG tablet,chewable 81 mg PO DAILY@0800 Patient Comments: [facility] budesonide-formoterol [Symbicort] 1 INHALER inhaler 2 puff PO BID Patient Comments: COPD metoprolol tartrate 50 MG tablet 50 mg PO BID apixaban 5 MG tablet 5 mg PO BID lisinopril 20 MG tablet 20 mg PO DAILY albuterol sulfate 18 GM HFA aerosol inhaler 2 puff inhalation Q4H PRN PRN (Reason: Sob &/Or Wheezing) pravastatin 10 mg tablet 10 mg PO QHS Patient Comments: TAKE 1 TABLET BY MOUTH EVERY DAY cholecalciferol (vitamin D3) [Vitamin D3] 25 mcg (1,000 unit) capsule 25 mcg PO DAILY pramipexole 0.5 mg Tablet 1 mg PO QHS Qty: 0 0RF sennosides-docusate sodium [Stool Softener-Stimulant Laxat] 8.6-50 mg Tablet 2 tab PO BID PRN PRN (Reason: Constipation) Qty: 0 0RF HySept 0.25 % Solution 1 applic topical DAILY Qty: 0 0RF Protocol: *Topical Application Instructions APPLICATION INSTRUCTIONS: left foot wound Patient Comments: Not taking docusate sodium 100 mg Capsule 100 mg PO BID Qty: 0 0RF gabapentin 100 mg Capsule 200 mg PO BIDCM Qty: 0 0RF amlodipine 2.5 mg Tablet 2.5 mg PO DAILY Qty: 0 0RF acetaminophen 500 mg Tablet 1,000 mg PO Q8 Qty: 0 0RF Patient Comments: Takes PRN ropinirole 0.5 mg tablet 0.5 mg PO TID nicotine 21 mg/24 hr patch 24 hour 1 patch topical DAILY guaifenesin [Mucinex] 1,200 mg tablet extended release 12hr 1,200 mg PO BID bupropion HCl 150 mg tablet extended release 24 hr 150 mg PO DAILY pantoprazole 40 mg Tablet,Delayed Release (Dr/Ec) 40 mg PO BID Qty: 0 0RF Patient Comments: Not taking sucralfate [Carafate] 1 gram tablet 1 g PO TID 30 Days Qty: 90 2RF ipratropium-albuterol 0.5 mg-3 mg(2.5 mg base)/3 mL solution for nebulization 3 ml inhalation Q4H PRN (Reason: shortness of breath or wheezing) Qty: 540 3RF Discontinued prednisone 10 mg tablet 10 mg PO DAILY 90 Days Qty: 90 3RF meropenem 1 gram recon soln 1 g IV Q12H 42 Days Rx Instructions: stop date 08/21/23. Dx: L foot osteo. Weekly bmp, cbc, LFT, and esr. Fax to [phone]. Routine picc care per protocol. Referrals / Follow Up: Parveen Guaman DPM [Med Staff - Active Staff] - (Patient will follow-up next Thursday wound care center was discharged from the hospital. Please call the wound care center for appointment time.) Cherelle Cutler DO [Primary Care Provider] - Disposition Disposition (needs filled in before D/C Order can be placed): Residential Facility
--- NOTE | 2023-11-12 13:47 | DS.PCM_ITS ---
Providers Date of Admission: 11/04/23 Primary Care Physician: Dr. Cherelle Cutler, DO Consultations 11/05/23 14:23 Consult: Podiatry Routine Consulting Provider: Parveen Guaman Reason for Consult: Right foot EMERGENT Consult: No Notified: Yes Date Notified: 11/05/23 Time Notified: 14:23 Method of Notification: Text 11/10/23 07:34 Consult: Gastroenterology Routine Consulting Provider: [facility] Reason for Consult: Abnorma MBS EMERGENT Consult: No Notified: Yes Date Notified: 11/10/23 Time Notified: 08:51 Method of Notification: Text Reason For Visit: COPD EXA, URINE RETENTION Diagnosis Discharge Diagnosis (1) COPD exacerbation: Status: Chronic Code(s): J44.1 - Chronic obstructive pulmonary disease with (acute) exacerbation (2) Esophageal dysphagia: Status: Acute Code(s): R13.19 - Other dysphagia Medications at Discharge Home Medications aspirin 81 mg chewable tablet 81 mg PO DAILY@0800 [facility] 02/03/14 budesonide-formoterol HFA 160 mcg-4.5 mcg/actuation aerosol inhaler (Symbicort) 2 puff PO BID COPD 02/03/14 albuterol sulfate 90 mcg/actuation aerosol inhaler 2 puff inhalation Q4H PRN PRN Sob &/Or Wheezing 08/24/18 apixaban 5 mg tablet 5 mg PO BID BLOOD THINNER 08/24/18 lisinopril 20 mg tablet 20 mg PO DAILY bp 08/24/18 metoprolol tartrate 50 mg tablet 50 mg PO BID HTN 08/24/18 pravastatin 10 mg tablet 10 mg PO QHS HIGH CHOLESTEROL 10/04/22 sucralfate 1 gram tablet (Carafate) 1 g PO TID GASTRIC ULCERS 30 days #90 tabs 10/24/22 PEP device #1 ea 11/06/22 folic acid 400 mcg tablet 0.4 mg PO DAILY DIETARY SUPPLEMENT 11/06/22 cyanocobalamin (vitamin B-12) 100 mcg tablet (Vitamin B-12) 100 mcg PO DAILY VITAMIN SUPPLEMENT 04/16/23 cholecalciferol (vitamin D3) 25 mcg (1,000 unit) capsule (Vitamin D3) 25 mcg PO DAILY DIETARY SUPPLEMENT 05/27/23 acetaminophen 500 mg tablet 1,000 mg (2 x 500 mg) PO Q8 #0 tabs 07/15/23 amlodipine 2.5 mg tablet 2.5 mg PO DAILY #0 tabs 07/15/23 docusate sodium 100 mg capsule 100 mg PO BID #0 caps 07/15/23 gabapentin 100 mg capsule 200 mg (2 x 100 mg) PO BIDCM #0 caps 07/15/23 pramipexole 0.5 mg tablet 1 mg (2 x 0.5 mg) PO QHS #0 tabs 07/15/23 sennosides 8.6 mg-docusate sodium 50 mg tablet (Stool Softener-Stimulant Laxative) 2 tab PO BID PRN PRN Constipation #0 tabs 07/15/23 sodium hypochlorite 0.25 % solution (HySept) 1 applic topical DAILY #0 mL 07/15/23 ipratropium 0.5 mg-albuterol 3 mg (2.5 mg base)/3 mL nebulization soln 3 ml inhalation Q4H PRN shortness of breath or wheezing #540 mL 10/05/23 bupropion HCl 150 mg 24 hr tablet, extended release 150 mg PO DAILY Anxiety 11/04/23 guaifenesin 1,200 mg tablet, extended release 12 hr (Mucinex) 1,200 mg PO BID Mucus 11/04/23 nicotine 21 mg/24 hr daily transdermal patch 1 patch topical DAILY smoker 11/04/23 ropinirole 0.5 mg tablet 0.5 mg PO TID Restless legs 11/04/23 pantoprazole 40 mg tablet,delayed release 40 mg PO BID #0 tabs 11/12/23 prednisone 10 mg tablet 30 mg (3 x 10 mg) PO BREAKFAST #0 tabs 11/12/23 Hospital Course Operations None Procedures EGD Summary of Care Provided Minutes Spent on Discharge: 36 Hospital Course: Per HPI: DARRYN ROMAN, is a 73 M with multiple comorbidities came to ED predominantly for worsening shortness of breath, generalized weakness for few days. Initially it was mainly on exertion but progressed to dyspnea at rest. Patient has chronic cough and attributes to his smoking with no change in frequency, severity or sputum production. No fever. He denies any chest pain, pressure or tightness. Patient also has urinary retention and felt suprapubic pressure/pain and required a straight catheterization. Abdominal discomfort resolved after straight cath. Had 1 DuoNeb by EMS. As per EMS vitals, blood pressure was low 98/60, heart rate 93/min. Respiratory rate 24/min. In ED patient requires 1 to 2 L of oxygen. Hospital Course: 1. COPD exacerbation as change in shortness of breath/dyspnea at rest: Patient is being admitted in PCU. Chest x-ray individually reviewed does not show acute abnormality. Twelve-lead EKG shows NSR at 87 bpm, QTc 430 ms. Patient is being managed on scheduled bronchodilator, IV Solu-Medrol, Mucinex, incentive spirometry and Pep. Triple PCR for SARS-CoV-2, flu and RSV is pending. Blood culture and sputum culture ordered. Empirically on IV Zithromax. Mild leukocytosis with immature granulocytes 1.5%. 11/04: Leukocytosis improved. Immature granulocytes improving. Triple PCR for SARS-CoV-2, flu and RSV are negative. Blood culture pending. 11/05: Blood culture negative for 48 hours. Urine culture does not show growth. Zithromax was changed to doxycycline. 11/07/2023: Will change Solu-Medrol to prednisone, PT/OT recommending SNF placement 11/08/2023: Doing well, continue with the prednisone. Planning for SNF placement 11/09/2023: Awaiting SNF placement 11/11/2023: Respiratory status is improved, he does feel better 11/12/2023: Discussed with him the plan for discharge today he expressed understanding of the risks and benefits of going to the nursing and would like to go today. Will plan for a short prednisone taper on discharge 2. Urinary retention most likely due to: Patient required straight cath. UA is benign with glucosuria, nitrite and LE negative. WBC 0-5 cells, squamous cells 0-5 cells. urine culture ordered. Does not need antibiotic for UTI as suspicion is very low. 11/04: Urine culture pending. As per the nursing staff patient could not swallow Flomax capsule therefore Proscar added. 11/05: Urine culture no growth. Flomax changed to doxazosin. Continue Proscar. Discussed with the nursing staff to teach self-catheterization every 4-6 hours with bladder scan with residual urine more than 200 mL. Need to follow-up urologist after discharge. 11/07/2023: Continue with medications, refuses Braun. 3. Left foot chronic wound with history of osteomyelitis: Patient follows in wound center with can machine operator Dr. Guaman. Fortunately debridement of ulcer 1.8 x 0.7 x 0.7 cm on the left lateral foot. Patient was admitted in June 2023 for acute osteomyelitis of left foot. Continue antibiotic. 11/04: Nondest[employer] T[employer] Dr. Parveen Guaman consulted. 11/10/2023: All cultures so far negative will discontinue doxycycline and he has completed meropenem as an outpatient 4. Chronic anemia, mild macrocytic: H&H 12.9/42%. Platelet count 316,000. 5. CKD stage IIIb: BUN/creatinine 2.06. Estimated creatinine clearance 31 mL/min. Hold lisinopril. Avoid nephrotoxic medications. 11/04: Creatinine improved to 1.78. BUN 27. 6. 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 No significant drop in hemoglobin despite this is severe erosive esophagitis and the bleeding. Continue to monitor as an outpatient 6. Hypertension: Blood pressure slightly elevated Home medication reviewed. 7. Dyslipidemia: On home pravastatin. 8. Failed modified barium swallow ? Will consult gastroenterology for EGD and evaluation ? This will push back discharge plans ?EGD demonstrated severe erosive esophagitis with bleeding. Continue with Carafate and PPI this was likely the cause of his swallowing dysfunction. He will need to be on twice daily Protonix on discharge ? Of note he was supposed to be on a PPI but he stopped taking this prior to admission Physical Exam Narrative General: Alert, Oriented x3, Cooperative, No apparent distress HEENT: Atraumatic, PERRLA, EOMI, Normocephalic Oral: Moist Mucosa Neck: Supple, No JVD Lungs: Diminished, Normal air movement, No rhonchi, scattered wheeze, No rales Cardiovascular: Regular rate, Regular Rhythm, Normal S1, Normal S2, No murmurs Abdomen: Soft, Non Tender, Non-Distended, No Hepato-splenomegaly Extremities: No edema, Capillary Refill Less than 3 Seconds Skin: Left foot ulceration Musculoskeletal: No Tenderness to Palpation of Joints or Extremities Neurological: No focal neurological deficits, Motor Exam 5/5 strength throughout, Sensory exam intact to light touch and pain Psych/Mental Status: Normal Affect, Appropriate Weight / BMI Weight Weight: 139 lb 8.842 oz Body Mass Index (BMI) 20.6 ABG / Lab / Microbiology Data 11/11/23 05:29 11/11/23 05:29 Microbiology: Microbiology 11/04/23 10:55 Blood Culture (Wb) - Right Hand Blood Culture - Final No growth in 5 days. 11/04/23 11:09 Urine Catheter - Catheter Urine Culture - Final Culture exhibits no growth. 11/04/23 13:35 Mucosa - Nose SARS-CoV-2, Influenza & RSV (PCR) - Final Meaningful Use Info Meaningful Use Meaningful Use Diagnoses (Choose all that apply): None applicable Ischemic Stroke Statin Dosing Therapy Reference: STATIN DOSE THERAPY REFERENCE: * Patients > 75 years receive moderate or high dose statin therapy. * Patients 75 years or YOUNGER should receive HIGH intensity statin dose unless contraindicated. You will be required to document reason for non-treatment if statin daily dose does not meet guidelines. HIGH DOSE STATIN THERAPY DAILY Atorvastatin > than or = to 40 mg Rosuvastatin > than or = to 20 mg Amlodipine + Atorvastatin > than or = to 2.5/40 mg Ezetimibe + Simvastatin 10/80 mg Simvastatin 80mg Discharge Plan Admission Admit Date/Time: 11/04/23 13:25 Attending Provider: [place] Michael Primary Care Provider: Cherelle Cutler Consulting Providers: Parveen Guaman; Mejia Lott Discharge Orders/Prescriptions Prescriptions: New prednisone 10 mg tablet 30 mg PO BREAKFAST Qty: 0 0RF Rx Instructions: 3 tabs daily for 3 days then 2 tabs daily for 3 days then 1 tablet daily for 3 days then half tab daily for 4 days Continued folic acid 400 mcg tablet 0.4 mg PO DAILY (DME) PEP device See Rx Instructions .ROUTE .MEDSUPPLY Qty: 1 0RF Rx Instructions: with training cyanocobalamin (vitamin B-12) [Vitamin B-12] 100 mcg tablet 100 mcg PO DAILY Patient Comments: TAKE 1 TABLET BY MOUTH EVERY DAY aspirin 81 MG tablet,chewable 81 mg PO DAILY@0800 Patient Comments: [facility] budesonide-formoterol [Symbicort] 1 INHALER inhaler 2 puff PO BID Patient Comments: COPD metoprolol tartrate 50 MG tablet 50 mg PO BID apixaban 5 MG tablet 5 mg PO BID lisinopril 20 MG tablet 20 mg PO DAILY albuterol sulfate 18 GM HFA aerosol inhaler 2 puff inhalation Q4H PRN PRN (Reason: Sob &/Or Wheezing) pravastatin 10 mg tablet 10 mg PO QHS Patient Comments: TAKE 1 TABLET BY MOUTH EVERY DAY cholecalciferol (vitamin D3) [Vitamin D3] 25 mcg (1,000 unit) capsule 25 mcg PO DAILY pramipexole 0.5 mg Tablet 1 mg PO QHS Qty: 0 0RF sennosides-docusate sodium [Stool Softener-Stimulant Laxat] 8.6-50 mg Tablet 2 tab PO BID PRN PRN (Reason: Constipation) Qty: 0 0RF HySept 0.25 % Solution 1 applic topical DAILY Qty: 0 0RF Protocol: *Topical Application Instructions APPLICATION INSTRUCTIONS: left foot wound Patient Comments: Not taking docusate sodium 100 mg Capsule 100 mg PO BID Qty: 0 0RF gabapentin 100 mg Capsule 200 mg PO BIDCM Qty: 0 0RF amlodipine 2.5 mg Tablet 2.5 mg PO DAILY Qty: 0 0RF acetaminophen 500 mg Tablet 1,000 mg PO Q8 Qty: 0 0RF Patient Comments: Takes PRN ropinirole 0.5 mg tablet 0.5 mg PO TID nicotine 21 mg/24 hr patch 24 hour 1 patch topical DAILY guaifenesin [Mucinex] 1,200 mg tablet extended release 12hr 1,200 mg PO BID bupropion HCl 150 mg tablet extended release 24 hr 150 mg PO DAILY pantoprazole 40 mg Tablet,Delayed Release (Dr/Ec) 40 mg PO BID Qty: 0 0RF Patient Comments: Not taking sucralfate [Carafate] 1 gram tablet 1 g PO TID 30 Days Qty: 90 2RF ipratropium-albuterol 0.5 mg-3 mg(2.5 mg base)/3 mL solution for nebulization 3 ml inhalation Q4H PRN (Reason: shortness of breath or wheezing) Qty: 540 3RF Discontinued prednisone 10 mg tablet 10 mg PO DAILY 90 Days Qty: 90 3RF meropenem 1 gram recon soln 1 g IV Q12H 42 Days Rx Instructions: stop date 08/21/23. Dx: L foot osteo. Weekly bmp, cbc, LFT, and esr. Fax to [phone]. Routine picc care per protocol. Referrals / Follow Up: Parveen Guaman DPM [Med Staff - Active Staff] - (Patient will follow-up next Thursday wound care center was discharged from the hospital. Please call the wound care center for appointment time.) Cherelle Cutler DO [Primary Care Provider] - Disposition Disposition (needs filled in before D/C Order can be placed): [facility] Charges/Coding Visit Charges Inpatient E&M: 07100 Disch Hosp >30min
--- NOTE | 2023-11-12 14:14 | CASEMGMT ---
Patient is ready for discharge to [facility]. SW completed a 7000 in [facility] system. Plan: d/c to [facility] under skilled level of care on a convalescent stay. Physicians will transport patient via wheelchair van. Tammy CARRENO
--- NOTE | 2023-11-12 14:41 | CASEMGMT ---
Discharge Planning Discharge orders, signed med list, and transport time sent to [facility]. Physicians will transport patient by wheelchair at 5p. Nursing, SW, patient, and his updated. Katie Conn DC Planning Asst.
[2023-11-12] MEDS: Doxazosin 4 MG Tablet PO (16:03)
== END 2023-11-12 17:16 | disposition skilled nursing facility (03) | DRG 166 ==
LOC: ED 13:32 → PCU 16:08
PROVIDERS: Internal Medicine Gastroenterology; Admitting Provider Internal Medicine; Emergency Provider Emergency Medicine; PCP Family Medicine; Visit Provider Family Medicine
PROC: 0DJ08ZZ Inspection of Upper Intestinal Tract, Via Natural or Artificial Opening Endoscopic (ICD-10-PCS; CPT 43235; principal; 2023-11-11 17:00)
DX: J44.1 Chronic obstructive pulmonary disease with (acute) exacerbation (principal); K22.11 Ulcer of esophagus with bleeding; N18.32 Chronic kidney disease, stage 3b; I12.9 Hypertensive chronic kidney disease with stage 1 through stage 4 chronic kidney disease, or unspecified chronic kidney disease; D53.9 Nutritional anemia, unspecified; I73.9 Peripheral vascular disease, unspecified; L97.522 Non-pressure chronic ulcer of other part of left foot with fat layer exposed; E78.5 Hyperlipidemia, unspecified; F17.210 Nicotine dependence, cigarettes, uncomplicated; K44.9 Diaphragmatic hernia without obstruction or gangrene; Z79.82 Long term (current) use of aspirin; Z79.01 Long term (current) use of anticoagulants; Z79.51 Long term (current) use of inhaled steroids; R13.10 Dysphagia, unspecified; Z79.899 Other long term (current) drug therapy; Z90.49 Acquired absence of other specified parts of digestive tract; R33.9 Retention of urine, unspecified
CPT/HCPCS: 36415; 71046; 74230; 80048; 81001; 83605; 83735; 83880; 84484; 85025; 87040; 87086; 87631; 92526; 92610; 92611; 93005; 94640; 94668; 97110; 97116; 97162; 97166; 97530; 97535; 97802; 99285; J7030; J7050; J7120; P9612; A4216; J2405

== ENCOUNTER 2023-12-16 12:30 | Outpatient (RCR) | payer MEDICARE, SELFPAY ==
[2023-11-17 00:21] VITALS: BP 96/50; PULSE 77; RESP 20; TEMP 36.8; BMI 23.6
[2023-11-25 15:42] VITALS: BP 105/48; PULSE 83; RESP 18; TEMP 36.2; BMI 23.6
--- NOTE | 2023-11-25 16:44 | PCM.WC.PN ---
History of Present Illness Date of Service: 11/25/23 Chief Complaint: Left foot wound History of Wound: Left foot wound secondary to surgery from outside provider Subjective Subjective Mr. Oliva is a 73-year-old male presenting to wound care center today for follow-up evaluation of left lateral full-thickness wound. Patient did have a short stay in the hospital was ultimately discharged and sent to the [facility] for rehabilitation. Unfortunately while at the [employer] the patient did suffer a fall and now is complaining of pain to the left great toe, left foot, right foot as well as right ankle. Patient is unsure if he is broke his foot. He was not treated for his right foot but more treated in the emergency room for his right hip due to pain. He has been getting dressing changes as requested through home health care. Denies constitutional symptoms. No other pedal complaints at this time. Objective Data Objective Data Vital Signs: Vital Signs Temp Pulse Resp BP O2 Del Method O2 Flow Rate 97.1 F L 83 18 105/48 L Room Air 3 11/25/23 15:42 11/25/23 15:42 11/25/23 15:42 11/25/23 15:42 11/25/23 15:42 11/17/23 00:21 Oxygen Flow Rate (L/min) 3 Oxygen Delivery Method Room Air Weight: 72.575 kg Body Mass Index (BMI) 23.6 Physical Exam Narrative Vascular: PT, peroneal arteries are biphasic on Doppler. AT and DP are monophasic on Doppler. CFT is 4 seconds. Nonpitting edema appreciated to the left lower extremity. Skin temperature gradient is warm to cool from proximal ankle to distal digits bilateral. Blanchable erythema appreciated to the left hallux. Nonpitting edema appreciated to bilateral lower extremity. Neurological: Light touch intact. Protective sensation is intact. Patient response to painful stimuli. Dermatological: Full-thickness ulceration left foot measuring 1.3 x 0.6 x 0.5 cm. No malodor or probe to bone. Blanchable erythema appreciated to the left hallux, cannot rule out infection at this time. There is evidence of skin abrasion appreciated to the left hallux. Evidence of ecchymosis appreciated to the lesser digits of the right foot. Excisional debridement down to and including subcutaneous tissue to the left lateral full-thickness ulceration with a number 3 mm dermal curette without incident. Predebridement measurement is 1.2 x 0.5 x 0.3 cm. Postdebridement measurement is 1.3 x 0.6 x 0.5 cm. Musculoskeletal: Mild pain to palpation to the full-thickness wound to the lateral left foot. Moderate palpatory tenderness appreciated to the left hallux. Moderate to severe palpatory tenderness appreciated to the base of the fifth metatarsal on the right foot. Mild pain on palpation to the fibula distally, medial malleolus, medial lateral ankle gutter, ATFL, to the right ankle. Range of motion of the ankle was not attempted secondary to guarding. Debridement Note Debridement Note Debridement Free Text: Excisional debridement down to and including subcutaneous tissue to the left lateral full-thickness ulceration with a number 3 mm dermal curette without incident. Predebridement measurement is 1.2 x 0.5 x 0.3 cm. Postdebridement measurement is 1.3 x 0.6 x 0.5 cm. Post-Debridement Measurements and Additional Note: Post-Debridement Measurements/Treatment - Nurse 1 - General Ulcer Assessment Start: 11/25/23 15:42 Freq: Status: Active Protocol: WC.LOWCRYSTALT Activity Type Activity Date Activity User E-sign Co-sign Detail Recorded Client Recorded Date Recorded By Document 11/25/23 15:42 [id number] 11/25/23 16:04 11/25/23 15:42 - Today's Visit Information Type of service Follow-up Visit (Physician/DAM TENDER ) Arrival Mode Other Arrival Mode (Other) SCOOTER Accompanied by Patient Identification Verified (Name & Yes ) Height and Weight Body Mass Index (BMI) 23.6 BMI Classification Normal Vital Signs Temperature (97.8 F-99.1 F) 97.1 F L Temperature Source Temporal Pulse Rate (60-100) 83 Pulse Location Monitor Respiratory Rate (12-18) 18 Respiratory rate source Observation Oxygen Delivery Method Room Air Blood Pressure (90/60-120/80) 105/48 L Blood Pressure Mean (mm Hg) 67 Source Monitor Position Semi-Fowlers Blood Pressure Location Left Arm History Since Last Visit- (Skip if this is Patient's initial visit) Have you changed medications since your No last visit? Any new allergies or adverse reactions No Had a fall/change in ADL's that may Yes increase risk of falls Signs or symptoms of abuse and/or No neglect since last visit Have you been in the hospital since your Yes last visit? Has dressing in place as prescribed Yes Has compression in place as prescribed Yes Has offloadiing in place as prescribed N/A Experienced any changes in pain level or No management Left Footwear Regular Shoe Right Footwear Regular Shoe Pain Scale: 0-10 Numeric Is Patient Pain Free? Yes WC - Nurse 1 - General Ulcer Measurement Start: 11/25/23 15:42 Freq: Status: Active Protocol: Activity Type Activity Date Activity User E-sign Co-sign Detail Recorded Client Recorded Date Recorded By Document 11/25/23 15:42 KW [id number] 11/25/23 16:04 KW 11/25/23 15:42 Wound Center Nurse 1 #3 LT HALLUX -Current Size (cm) - Length 0.8 -Current Size (cm) - Width 0.8 -Current Size (cm) - Depth 0.1 -Total Square Cm 0.64 -Exudate Amt Small -Exudate Type Serosanguineous -Wound Margin Distinct, Outline Attached -Granulation Amt Large (67-100%) -Granulation Quality Red -Texture (Terri-wound Skin Appearance) Assessed -Moisture (Terri-wound Skin Appearance) Assessed -Color (Terri-wound Skin Appearance) Assessed, Erythema -Temperature (Terri-wound Skin No Abnormality Appearance) (Pt Warm) -Tenderness on Palpation (Terri-wound No Skin Appearance) -Ulcer Cleansing Soap and Water -Foul Odor after Cleansing No -Anesthetic Used 5% Lidocaine Gel 1. L Lateral foot POST-OP -Current Size (cm) - Length 1.3 -Current Size (cm) - Width 0.5 -Current Size (cm) - Depth 0.3 -Total Square Cm 0.65 -Date of Last Picture (Recall this 11/25/23 field) -Exudate Amt Small -Exudate Type Serosanguineous -Wound Margin Distinct, Outline Attached -Granulation Amt Small (1-33%) -Granulation Quality [place] -Necrosis Amt Large (67-100%) -Necrotic Tissue Type Adherent Slough -Texture (Terri-wound Skin Appearance) Assessed -Moisture (Terri-wound Skin Appearance) Assessed, Maceration -Color (Terri-wound Skin Appearance) Assessed, Erythema -Temperature (Terri-wound Skin No Abnormality Appearance) (Pt Warm) -Tenderness on Palpation (Terri-wound No Skin Appearance) -Ulcer Cleansing Soap and Water -Foul Odor after Cleansing No -Anesthetic Used 5% Lidocaine Gel Left Calf (cm) 26 Left Ankle (cm) 22 WC - Nurse 2 - General Ulcer CM Notes Start: 11/25/23 15:42 Freq: Status: Active Protocol: Activity Type Activity Date Activity User E-sign Co-sign Detail Recorded Client Recorded Date Recorded By Document 11/25/23 16:19 JF [id number] 11/25/23 16:21 JF 11/25/23 16:19 Wound Center Nurse 2 #3 LT HALLUX -Correct Patient No -Correct Side, Site, Position No -Correct Procedure No -Procedure Performed No -Wound/Ulcer Outcome Not Healed 1. L Lateral foot POST-OP -Time 16:20 -Correct Patient Yes -Correct Side, Site, Position Yes -Correct Procedure Yes -Procedure Performed Yes -Type of Procedure Debridement -Clinical Debridement Subcutaneous -Tissue Removed Subcutaneous -Post Debridement (cm) - Length 1.3 -Post Debridement (cm) - Width 0.6 -Post Debridement (cm) - Depth 0.5 -Total Square (Post) (cm) 0.78 -Area of Debridement (cm) - Length 1.3 -Area of Debridement (cm) - Width 0.6 -Total Square (Area) (cm) 0.78 -Tunneling No -Undermining/Tunneling No -Circular Undermining No -Wound/Ulcer Outcome Not Healed -Ulcer Cleansing Rinsed/ Irrigated with Saline -Foul Odor after Cleansing No -Bioengineered Tissue No -Bleeding Controlled with Pressure -Treatment Response Procedure Tolerated Well -Offloading Yes -Type of Offloading Surgical Shoe -Debridement - Subq, 1st 20sq cm Yes Pain Scale: 0-10 Numeric Is Patient Pain Free? Yes - Nurse 3 - General Ulcer D/C NN Start: 11/25/23 15:42 Freq: Status: Active Protocol: Activity Type Activity Date Activity User E-sign Co-sign Detail Recorded Client Recorded Date Recorded By Document 11/25/23 16:30 KW [id number] 11/25/23 16:33 KW 11/25/23 16:30 Wound Care Center Nurse 3 #3 LT HALLUX -Ulcer Cleansing Rinsed/ Irrigated with Saline -Foul Odor after Cleansing No -Other Dressing BETADINE -Primary Dressing Covered/Secured with Dry Gauze, Secured with Tape 1. L Lateral foot POST-OP -Ulcer Cleansing Rinsed/ Irrigated with Saline -Foul Odor after Cleansing No -Primary Dressing Applied Promogran Anika Matter -Primary Dressing Covered/Secured with Dry Gauze, Secured with Tape -Promogran Anika Matter 1 Left -Tubular Bandage Single Layer -Size of Tubigrip Used Size D -Size D ($) 1 Treatment Response Procedure Tolerated Well Pain Scale: 0-10 Numeric Is Patient Pain Free? Yes WC - Visit Discharge Discharge Condition Stable Ambulatory Status Wheelchair Transportation Private Auto Facility Type Home Health Orders Sent Yes Assessment/Plan Assessment/Plan (1) Non-pressure chronic ulcer of other part of left foot with fat layer exposed: CODE(S): L97.522 - Non-pressure chronic ulcer of other part of left foot with fat layer exposed PLAN: Patient was examined and evaluated. All findings were discussed with the patient. All questions were answered to the patient satisfaction. Excisional debridement down to and including subcutaneous tissue to the left lateral full-thickness ulceration with a number 3 mm dermal curette without incident. Predebridement measurement is 1.2 x 0.5 x 0.3 cm. Postdebridement measurement is 1.3 x 0.6 x 0.5 cm. Left lower extremities were cleaned and patted dry. The full-thickness wound was dressed with Fibracol, dry sterile dressing and Thad wrap. The contusion to the left hallux was dressed with Betadine paint sterile Band-Aid. Patient will be placed on doxycycline 100 mg twice daily for 2 weeks for concern of cellulitis. Patient will have home health care change his dressing every other day until follow-up. There will be an order given for radiographs of the left foot, right foot and right ankle secondary to pain and trauma. I did educate the patient that if he has an ankle fracture it may or may not need surgery which he was understanding of. There is also discussed with the patient and his that if he has delayed healing by the end of December to the lateral left ulceration will recommend follow-up with vascular surgery for evaluation. Follow-up with Dr. Guaman at the wound care center in 1 week. (2) Right ankle sprain: CODE(S): S93.401A - Sprain of unspecified ligament of right ankle, initial encounter QUALIFIERS: Encounter type: initial encounter Involved ligament of ankle: anterior talofibular ligament Qualified Code(s): S93.491A - Sprain of other ligament of right ankle, initial encounter (3) Pain in right foot: CODE(S): M79.671 - Pain in right foot (4) Pain in right ankle: CODE(S): M25.571 - Pain in right ankle and joints of right foot QUALIFIERS: Chronicity: acute Qualified Code(s): M25.571 - Pain in right ankle and joints of right foot (5) Contusion of left great toe without damage to nail, initial encounter: CODE(S): S90.112A - Contusion of left great toe without damage to nail, initial encounter (6) Cellulitis of left foot: CODE(S): L03.116 - Cellulitis of left lower limb
--- NOTE | 2023-11-25 17:08 | RAD_ITS ---
STUDY: X-RAY - LEFT FOOT CLINICAL: Male, 73 years old. ULCER,PAIN, FRACTURE TECHNIQUE: 4 view(s) of the foot. COMPARISON: None. FINDINGS: Normal talus, calcaneus, and tarsal bones. Normal visualized subtalar, talonavicular, calcaneocuboid, tarsal and tarsometatarsal articulations. Postsurgical change status post resection of the proximal phalanx of the fifth metatarsal. Normal metatarsophalangeal joint of the great toe. Normal tibial and fibular sesamoid bones. Normal interphalangeal joint of the great toe. Normal phalanges of the great toe. Normal second through fifth metatarsophalangeal joints. Normal interphalangeal joints and phalanges of the lesser toes. Soft tissue ulceration and swelling of the distal great toe. RAD/Foot min 3 Views IMPRESSION: Soft tissue ulceration of the distal great toe without definitive evidence for acute osteomyelitis. Electronically Signed: Roly Olmedo MD at 19:26 EDT ,
--- NOTE | 2023-11-25 17:09 | RAD_ITS ---
STUDY: X-RAY - RIGHT FOOT CLINICAL: Male, 73 years old. ULCER,PAIN TECHNIQUE: 3 view(s) of the foot. COMPARISON: None. FINDINGS: Normal talus, calcaneus, and tarsal bones. Normal visualized subtalar, talonavicular, calcaneocuboid, tarsal and tarsometatarsal articulations. Normal metatarsi. Normal metatarsophalangeal joint of the great toe. Normal tibial and fibular sesamoid bones. Normal interphalangeal joint of the great toe. Normal phalanges of the great toe. Normal second through fifth metatarsophalangeal joints. Normal interphalangeal joints and phalanges of the lesser toes. The soft tissue structures are unremarkable. RAD/Foot min 3 Views IMPRESSION: Normal x-ray examination of the foot. Electronically Signed: Roly Olmedo MD at 20:40 EDT ,
--- NOTE | 2023-11-25 17:10 | RAD_ITS ---
STUDY: X-RAY - RIGHT ANKLE REASON FOR EXAM: Male, 73 years old. ULCER,PAIN TECHNIQUE: 3 view(s) of the ankle. COMPARISON: None. FINDINGS: Normal visualized distal tibia and fibula. Normal medial and lateral malleoli. Normal tibiotalar articulation and ankle mortise. Normal visualized talus and calcaneus. The visualized subtalar,, calcaneocuboid and tarsal articulations are normal. Mild talonavicular spurring The soft tissue structures are unremarkable. RAD/Ankle min 3 Views IMPRESSION: No evidence for acute osteomyelitis or other significant bony lesion Electronically Signed: Roly Olmedo MD at 19:23 EDT ,
[2023-12-02 15:08] VITALS: BMI 23.6
[2023-12-09 12:23] VITALS: BP 98/56; PULSE 98; RESP 18; TEMP 35.9; BMI 23.6
--- NOTE | 2023-12-09 13:05 | PCM.WC.PN ---
History of Present Illness Date of Service: 12/09/23 Chief Complaint: Left foot wound History of Wound: Left foot wound secondary to surgery from outside provider Subjective Subjective Mr. Oliva is a 73-year-old male presenting to the wound care center today for follow-up evaluation of left hallux and left wound ulcers as well as a new complaint of breakdown of skin to the right styloid process over the right foot. Patient has been compliant with dressing changes. He has gotten a new pair shoes and relates his breakdown of skin to the right foot due to the new shoes. He has been partial weightbearing with assistance of motor scooter. Denies trauma. Denies constitutional symptoms. No other pedal complaints at this time. Objective Data Objective Data Vital Signs: Vital Signs Temp Pulse Resp BP O2 Del Method O2 Flow Rate 96.7 F L 98 18 82/46 L Room Air 3 12/09/23 12:23 12/09/23 12:23 12/09/23 12:23 12/09/23 12:23 12/09/23 12:23 11/17/23 00:21 Oxygen Flow Rate (L/min) 3 Oxygen Delivery Method Room Air Weight: 72.575 kg Body Mass Index (BMI) 23.6 Physical Exam Narrative Vascular: PT, peroneal arteries are biphasic on Doppler. AT and DP are monophasic on Doppler. CFT is 4 seconds. Nonpitting edema appreciated to the left lower extremity. Skin temperature gradient is warm to cool from proximal ankle to distal digits bilateral. Blanchable erythema appreciated to the left hallux, improved. Nonpitting edema appreciated to bilateral lower extremity. Neurological: Light touch intact. Protective sensation is intact. Patient response to painful stimuli. Dermatological: Breakdown of skin to the lateral foot on the right over the styloid process measuring 0.1 x 0.1 x 0.1 cm. Full-thickness ulceration to the left hallux measuring 0.4 x 0.3 x 0.1 cm. Left lateral full-thickness ulceration measures 1.1 x 0.3 x 0.4 cm. No sign of infection to the bilateral foot. Excisional debridement down to and including subcutaneous tissue to the left hallux full-thickness ulceration with a number 3 mm dermal curette without incident. Predebridement measurement was callus. Postdebridement measurement is 0.4 x 0.3 x 0.1 cm. Excisional debridement down to and including subcutaneous tissue to the left lateral full-thickness ulceration with a number 3 mm dermal curette without incident. Predebridement measurement is 1.0 x 0.2 x 0.2 cm. Postdebridement measurement is 1.1 x 0.3 x 0.4 cm. Selective debridement of the lateral callus over the fifth metatarsal styloid process right foot with a #15 blade without incident. Predebridement measurement was callus. measurement 0.1 x 0.1 x 0.1 cm. Musculoskeletal: Mild pain to palpation to the full-thickness wound to the lateral left foot. No palpatory tenderness appreciated to the left hallux. Mild palpatory tenderness appreciated to the base of the fifth metatarsal on the right foot. No pain on palpation to the fibula distally, medial malleolus, medial lateral ankle gutter, ATFL, to the right ankle. Debridement Note Debridement Note Debridement Free Text: Excisional debridement down to and including subcutaneous tissue to the left hallux full-thickness ulceration with a number 3 mm dermal curette without incident. Predebridement measurement was callus. Postdebridement measurement is 0.4 x 0.3 x 0.1 cm. Excisional debridement down to and including subcutaneous tissue to the left lateral full-thickness ulceration with a number 3 mm dermal curette without incident. Predebridement measurement is 1.0 x 0.2 x 0.2 cm. Postdebridement measurement is 1.1 x 0.3 x 0.4 cm. Selective debridement of the lateral callus over the fifth metatarsal styloid process right foot with a #15 blade without incident. Predebridement measurement was callus. measurement 0.1 x 0.1 x 0.1 cm. 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 Visit (Physician/RULING MACHINE 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 ) ) Arrival Mode Other Wheelchair Ambulatory, Wheelchair Arrival Mode (Other) SCOOTER Transfer Assistance Manual Accompanied by Patient Identification Verified (Name & Yes Yes Yes ) Patient Requires Transmission-Based No No Precautions Safety Precautions Fall Prevention Height and Weight Body Mass Index (BMI) 23.6 23.6 23.6 BMI Classification Normal Normal Normal Vital Signs Temperature (97.8 F-99.1 F) 97.1 F L 96.7 F L Temperature Source Temporal Temporal Pulse Rate (60-100) 83 98 Pulse Location Monitor Monitor Respiratory Rate (12-18) 18 18 Respiratory rate source Observation Observation Oxygen Delivery Method Room Air Room Air Blood Pressure (90/60-120/80) 105/48 L 82/46 L Blood Pressure Mean (mm Hg) 67 58 Source Monitor Monitor Position Semi-Fowlers Sitting Blood Pressure Location Left Arm Right Arm History Since Last Visit- (Skip if this is Patient's initial visit) Have you changed medications since your No No Yes last visit? Any new allergies or adverse reactions No No No Had a fall/change in ADL's that may Yes No No increase risk of falls Signs or symptoms of abuse and/or No No No neglect since last visit Have you been in the hospital since your Yes No No last visit? Has dressing in place as prescribed Yes Yes Yes Has compression in place as prescribed Yes Yes Yes Has offloadiing in place as prescribed N/A N/A N/A Experienced any changes in pain level or No No No management Left Footwear Regular Shoe Regular Shoe Right Footwear Regular Shoe Regular Shoe Pain Scale: 0-10 Numeric Is Patient Pain Free? Yes Yes Yes - Nurse 1 - General Ulcer Measurement Start: 11/25/23 15:42 Freq: Status: Active Protocol: Activity Type Activity Date Activity User E-sign Co-sign Detail Recorded Client Recorded Date Recorded By Document 11/25/23 15:42 KW [id number] 11/25/23 16:04 KW Document 12/09/23 12:39 DS [id number] 12/09/23 12:41 DS Edit Result 12/09/23 12:39 DS (1) [id number] 12/09/23 12:49 DS (1) #4 right lateral foot - Current Size (cm) - Length => 0.3 - Current Size (cm) - Width => 0.4 - Current Size (cm) - Depth => 0.1 - Total Square Cm => 0.12 - Date of Last Picture (Recall this => 12/09/23 field) - Photo Taken => Yes - Tunneling => No - Undermining/Tunneling => No - Circular Undermining => No - Texture (Terri-wound Skin Appearance) => Assessed - Moisture (Terri-wound Skin Appearance) => Assessed - Color (Terri-wound Skin Appearance) => Assessed - Temperature (Terri-wound Skin => No Abnormality (Pt Appearance) => Warm) - Tenderness on Palpation (Terri-wound => No Skin Appearance) - Ulcer Cleansing => Soap and Water - Anesthetic Used => 5% Lidocaine Gel 11/25/23 12/09/23 15:42 12:39 Wound Center Nurse 1 #4 right lateral foot -Current Size (cm) - Length 0.3 -Current Size (cm) - Width 0.4 -Current Size (cm) - Depth 0.1 -Total Square Cm 0.12 -Date of Last Picture (Recall this 12/09/23 field) -Photo Taken Yes -Tunneling No -Undermining/Tunneling No -Circular Undermining No -Texture (Terri-wound Skin Appearance) Assessed -Moisture (Terri-wound Skin Appearance) Assessed -Color (Terri-wound Skin Appearance) Assessed -Temperature (Terri-wound Skin No Abnormality Appearance) (Pt Warm) -Tenderness on Palpation (Terri-wound No Skin Appearance) -Ulcer Cleansing Soap and Water -Anesthetic Used 5% Lidocaine Gel #3 LT HALLUX -Current Size (cm) - Length 0.8 0.5 -Current Size (cm) - Width 0.8 0.4 -Current Size (cm) - Depth 0.1 0.1 -Total Square Cm 0.64 0.20 -Photo Taken No -Tunneling No -Undermining/Tunneling No -Circular Undermining No -Exudate Amt Small None Present -Exudate Type Serosanguineous -Wound Margin Distinct, Distinct, Outline Outline Attached Attached -Granulation Amt Large (67-100%) Large (67-100%) -Granulation Quality Red [place] -Texture (Terri-wound Skin Appearance) Assessed Assessed -Moisture (Terri-wound Skin Appearance) Assessed Assessed -Color (Terri-wound Skin Appearance) Assessed, Assessed Erythema -Temperature (Terri-wound Skin No Abnormality No Abnormality Appearance) (Pt Warm) (Pt Warm) -Tenderness on Palpation (Terri-wound No Skin Appearance) -Ulcer Cleansing Soap and Water Soap and Water -Foul Odor after Cleansing No -Anesthetic Used 5% Lidocaine 5% Lidocaine Gel Gel 1. L Lateral foot POST-OP -Current Size (cm) - Length 1.3 0.7 -Current Size (cm) - Width 0.5 1.5 -Current Size (cm) - Depth 0.3 0.5 -Total Square Cm 0.65 1.05 -Date of Last Picture (Recall this 11/25/23 field) -Photo Taken No -Undermining/Tunneling No -Circular Undermining No -Exudate Amt Small Small -Exudate Type Serosanguineous Serosanguineous -Wound Margin Distinct, Distinct, Outline Outline Attached Attached -Granulation Amt Small (1-33%) Small (1-33%) -Granulation Quality [place] -Necrosis Amt Large (67-100%) Medium (34-66%) -Necrotic Tissue Type Adherent Slough Adherent Slough -Texture (Terri-wound Skin Appearance) Assessed Assessed -Moisture (Terri-wound Skin Appearance) Assessed, Assessed Maceration -Color (Terri-wound Skin Appearance) Assessed, Assessed Erythema -Temperature (Terri-wound Skin No Abnormality No Abnormality Appearance) (Pt Warm) (Pt Warm) -Tenderness on Palpation (Terri-wound No Skin Appearance) -Ulcer Cleansing Soap and Water Soap and Water -Foul Odor after Cleansing No -Anesthetic Used 5% Lidocaine 5% Lidocaine Gel Gel Left Calf (cm) 26 Left Ankle (cm) 22 WC - Nurse 2 - General Ulcer CM Notes Start: 11/25/23 15:42 Freq: Status: Active Protocol: Activity Type Activity Date Activity User E-sign Co-sign Detail Recorded Client Recorded Date Recorded By Document 11/25/23 16:19 JF [id number] 11/25/23 16:21 JF 11/25/23 16:19 Wound Center Nurse 2 #3 LT HALLUX -Correct Patient No -Correct Side, Site, Position No -Correct Procedure No -Procedure Performed No -Wound/Ulcer Outcome Not Healed 1. L Lateral foot POST-OP -Time 16:20 -Correct Patient Yes -Correct Side, Site, Position Yes -Correct Procedure Yes -Procedure Performed Yes -Type of Procedure Debridement -Clinical Debridement Subcutaneous -Tissue Removed Subcutaneous -Post Debridement (cm) - Length 1.3 -Post Debridement (cm) - Width 0.6 -Post Debridement (cm) - Depth 0.5 -Total Square (Post) (cm) 0.78 -Area of Debridement (cm) - Length 1.3 -Area of Debridement (cm) - Width 0.6 -Total Square (Area) (cm) 0.78 -Tunneling No -Undermining/Tunneling No -Circular Undermining No -Wound/Ulcer Outcome Not Healed -Ulcer Cleansing Rinsed/ Irrigated with Saline -Foul Odor after Cleansing No -Bioengineered Tissue No -Bleeding Controlled with Pressure -Treatment Response Procedure Tolerated Well -Offloading Yes -Type of Offloading Surgical Shoe -Debridement - Subq, 1st 20sq cm Yes Pain Scale: 0-10 Numeric Is Patient Pain Free? Yes - Nurse 3 - General Ulcer D/C NN Start: 11/25/23 15:42 Freq: Status: Active Protocol: Activity Type Activity Date Activity User E-sign Co-sign Detail Recorded Client Recorded Date Recorded By Document 11/25/23 16:30 KW [id number] 11/25/23 16:33 KW Document 12/02/23 15:08 ML [id number] 12/02/23 15:11 ML 11/25/23 12/02/23 16:30 15:08 Wound Care Center Nurse 3 #3 LT HALLUX -Ulcer Cleansing Rinsed/ Rinsed/ Irrigated with Irrigated with Saline Saline -Foul Odor after Cleansing No -Other Dressing BETADINE betadine -Primary Dressing Covered/Secured with Dry Gauze, Dry Gauze, Secured with Secured with Tape Tape 1. L Lateral foot POST-OP -Ulcer Cleansing Rinsed/ Irrigated with Saline -Foul Odor after Cleansing No -Primary Dressing Applied Promogran Promogran Anika Matter Anika Matter -Primary Dressing Covered/Secured with Dry Gauze, Dry Gauze & Secured with Roll Gauze, Tape Secured with Tape -Promogran Anika Matter 1 1 Left -Tubular Bandage Single Layer Single Layer -Size of Tubigrip Used Size D Size D -Size D ($) 1 1 Treatment Response Procedure Tolerated Well Pain Scale: 0-10 Numeric Is Patient Pain Free? Yes Yes WC - Visit Discharge Discharge Condition Stable Ambulatory Status Wheelchair Transportation Private Auto Facility Type Home Health Orders Sent Yes Assessment/Plan Assessment/Plan (1) Non-pressure chronic ulcer of other part of left foot with fat layer exposed: CODE(S): L97.522 - Non-pressure chronic ulcer of other part of left foot with fat layer exposed PLAN: Patient was examined and evaluated. All findings were discussed with the patient. All questions were answered to the patient satisfaction. Excisional debridement down to and including subcutaneous tissue to the left hallux full-thickness ulceration with a number 3 mm dermal curette without incident. Predebridement measurement was callus. Postdebridement measurement is 0.4 x 0.3 x 0.1 cm. Excisional debridement down to and including subcutaneous tissue to the left lateral full-thickness ulceration with a number 3 mm dermal curette without incident. Predebridement measurement is 1.0 x 0.2 x 0.2 cm. Postdebridement measurement is 1.1 x 0.3 x 0.4 cm. Selective debridement of the lateral callus over the fifth metatarsal styloid process right foot with a #15 blade without incident. Predebridement measurement was callus. measurement 0.1 x 0.1 x 0.1 cm. The bilateral lower extremities were cleaned and patted dry. Betadine paint and sterile bandage was applied to the lateral breakdown of skin to the right foot. Betadine paint was applied to left hallux and covered with sterile Band-Aid. Snap negative pressure wound VAC was applied to the full-thickness wound to the lateral left foot. Patient will have his do regular dressing changes as written. He will continue his antibiotic that was prescribed at his previous visit. He will follow-up in [address] Guaman at the wound care center. (2) Pain in right foot: CODE(S): M79.671 - Pain in right foot (3) Pain in right ankle: CODE(S): M25.571 - Pain in right ankle and joints of right foot QUALIFIERS: Chronicity: acute Qualified Code(s): M25.571 - Pain in right ankle and joints of right foot
[2023-12-09 13:38] VITALS: BP 109/60; PULSE 92; BMI 23.6
[2023-12-16 12:18] VITALS: BP 131/70; PULSE 101; RESP 18; TEMP 36.5; BMI 23.6
--- NOTE | 2023-12-16 12:40 | PCM.WC.PN ---
History of Present Illness Date of Service: 12/16/23 Chief Complaint: Left foot wound History of Wound: Left foot wound secondary to surgery from outside provider Subjective Subjective Mr. Oliva is a 73-year-old male presenting to the wound care center today for follow-up evaluation of full-thickness wound to the lateral left foot, left hallux and callus to the right lateral foot at the level of the styloid process. Patient has been compliant with dressing changes. He admits improvement to the right foot. He admits the hallux wound has healed. He has been compliant with the snap VAC to the lateral left foot. He still admits to smoking. He is following up for a CT scan of his lungs this week as well as physical therapy. Denies any trauma. Denies constitutional symptoms. No other pedal complaints at this time. Objective Data Objective Data Vital Signs: Vital Signs Temp Pulse Resp BP O2 Del Method O2 Flow Rate 97.7 F L 101 H 18 131/70 H Nasal Cannula 3 12/16/23 12:18 12/16/23 12:18 12/16/23 12:18 12/16/23 12:18 12/16/23 12:18 11/17/23 00:21 Oxygen Flow Rate (L/min) 3 Oxygen Delivery Method Nasal Cannula Weight: 72.575 kg Body Mass Index (BMI) 23.6 Physical Exam Narrative Vascular: PT, peroneal arteries are biphasic on Doppler. AT and DP are monophasic on Doppler. CFT is 4 seconds. Nonpitting edema appreciated to the left lower extremity. Skin temperature gradient is warm to cool from proximal ankle to distal digits bilateral. Neurological: Light touch intact. Protective sensation is intact. Patient response to painful stimuli. Dermatological: Full-thickness ulceration to lateral left foot measuring 1.0 x 0.4 x 0.5 cm. Wound base is granular nature. No probe to bone. Left hallux wound measures 0.1 x 0.1 x 0.1 cm. Excisional debridement down to and including subcutaneous tissue to the left lateral full-thickness ulceration with a number 3 mm dermal curette without incident. Predebridement measurement is 0.8 x 0.3 x 0.3 cm. Postdebridement measurement is 1.0 x 0.4 x 0.5 cm. Musculoskeletal: Mild pain to palpation of the full-thickness wound to the lateral left foot. No pain with calf compression. Debridement Note Debridement Note Debridement Free Text: Excisional debridement down to and including subcutaneous tissue to the left lateral full-thickness ulceration with a number 3 mm dermal curette without incident. Predebridement measurement is 0.8 x 0.3 x 0.3 cm. Postdebridement measurement is 1.0 x 0.4 x 0.5 cm. Post-Debridement Measurements and Additional Note: Post-Debridement Measurements/Treatment - Nurse 1 - General Ulcer Assessment Start: 11/25/23 15:42 Freq: Status: Active Protocol: CARLOS Activity Type Activity Date Activity User E-sign Co-sign Detail Recorded Client Recorded Date Recorded By Document 11/25/23 15:42 KW [id number] 11/25/23 16:04 KW Document 12/02/23 15:08 ML [id number] 12/02/23 15:11 ML Document 12/09/23 12:23 DS [id number] 12/09/23 12:39 DS Edit Result 12/09/23 12:23 DS (1) [id number] 12/09/23 13:06 JF Edit Result 12/09/23 12:23 DS (2) [id number] 12/09/23 13:39 DS Document 12/09/23 13:38 DS [id number] 12/09/23 13:39 DS Document 12/16/23 12:18 KW [id number] 12/16/23 12:31 KW (1) Blood Pressure (90/60-120/80) 82/46 L => 98/56 L Blood Pressure Mean (mm Hg) 58 => 70 Source Monitor => Manual (2) Oxygen Delivery Method Room Air => Nasal Cannula 11/25/23 12/02/23 12/09/23 15:42 15:08 12:23 - Today's Visit Information Type of service Follow-up Visit Nurse-only Follow-up Visit (Physician/LINK WIRE FABRIC MACHINE TENDER Visit (Physician/LINK WIRE FABRIC MACHINE TENDER ) ) Arrival Mode Other Wheelchair Ambulatory, Wheelchair Arrival Mode (Other) SCOOTER Transfer Assistance Manual Accompanied by Patient Identification Verified (Name & Yes Yes Yes ) Patient Requires Transmission-Based No No Precautions Safety Precautions Fall Prevention Height and Weight Body Mass Index (BMI) 23.6 23.6 23.6 BMI Classification Normal Normal Normal Vital Signs Temperature (97.8 F-99.1 F) 97.1 F L 96.7 F L Temperature Source Temporal Temporal Pulse Rate (60-100) 83 98 Pulse Location Monitor Monitor Respiratory Rate (12-18) 18 18 Respiratory rate source Observation Observation Oxygen Delivery Method Room Air Nasal Cannula Blood Pressure (90/60-120/80) 105/48 L 98/56 L Blood Pressure Mean (mm Hg) 67 70 Source Monitor Manual Position Semi-Fowlers Sitting Blood Pressure Location Left Arm Right Arm History Since Last Visit- (Skip if this is Patient's initial visit) Have you changed medications since your No No Yes last visit? Any new allergies or adverse reactions No No No Had a fall/change in ADL's that may Yes No No increase risk of falls Signs or symptoms of abuse and/or No No No neglect since last visit Have you been in the hospital since your Yes No No last visit? Has dressing in place as prescribed Yes Yes Yes Has compression in place as prescribed Yes Yes Yes Has offloadiing in place as prescribed N/A N/A N/A Experienced any changes in pain level or No No No management Left Footwear Regular Shoe Regular Shoe Right Footwear Regular Shoe Regular Shoe Pain Scale: 0-10 Numeric Is Patient Pain Free? Yes Yes Yes 12/09/23 12/16/23 13:38 12:18 WC - Today's Visit Information Type of service Follow-up Visit (Physician/LINK WIRE FABRIC MACHINE TENDER ) Arrival Mode Wheelchair Arrival Mode (Other) Transfer Assistance Accompanied by Patient Identification Verified (Name & Yes ) Patient Requires Transmission-Based Precautions Safety Precautions Height and Weight Body Mass Index (BMI) 23.6 23.6 BMI Classification Normal Normal Vital Signs Temperature (97.8 F-99.1 F) 97.7 F L Temperature Source Temporal Pulse Rate (60-100) 92 101 H Pulse Location Monitor Monitor Respiratory Rate (12-18) 18 Respiratory rate source Observation Oxygen Delivery Method Nasal Cannula Blood Pressure (90/60-120/80) 109/60 131/70 H Blood Pressure Mean (mm Hg) 76 90 Source Monitor Monitor Position Sitting Sitting Blood Pressure Location Right Arm Left Arm History Since Last Visit- (Skip if this is Patient's initial visit) Have you changed medications since your No last visit? Any new allergies or adverse reactions No Had a fall/change in ADL's that may No increase risk of falls Signs or symptoms of abuse and/or No neglect since last visit Have you been in the hospital since your No last visit? Has dressing in place as prescribed Yes Has compression in place as prescribed Yes Has offloadiing in place as prescribed Yes Experienced any changes in pain level or No management Left Footwear Regular Shoe Right Footwear Regular Shoe Pain Scale: 0-10 Numeric Is Patient Pain Free? Yes Yes WC - Nurse 1 - General Ulcer Measurement Start: 11/25/23 15:42 Freq: Status: Active Protocol: Activity Type Activity Date Activity User E-sign Co-sign Detail Recorded Client Recorded Date Recorded By Document 11/25/23 15:42 KW [id number] 11/25/23 16:04 KW Document 12/09/23 12:39 DS [id number] 12/09/23 12:41 DS Edit Result 12/09/23 12:39 DS (1) [id number] 12/09/23 12:49 DS Document 12/16/23 12:18 KW [id number] 12/16/23 12:31 KW (1) #4 right lateral foot - Current Size (cm) - Length => 0.3 - Current Size (cm) - Width => 0.4 - Current Size (cm) - Depth => 0.1 - Total Square Cm => 0.12 - Date of Last Picture (Recall this => 12/09/23 field) - Photo Taken => Yes - Tunneling => No - Undermining/Tunneling => No - Circular Undermining => No - Texture (Terri-wound Skin Appearance) => Assessed - Moisture (Terri-wound Skin Appearance) => Assessed - Color (Terri-wound Skin Appearance) => Assessed - Temperature (Terri-wound Skin => No Abnormality (Pt Appearance) => Warm) - Tenderness on Palpation (Terri-wound => No Skin Appearance) - Ulcer Cleansing => Soap and Water - Anesthetic Used => 5% Lidocaine Gel 11/25/23 12/09/23 12/16/23 15:42 12:39 12:18 Wound Center Nurse 1 #4 right lateral foot -Current Size (cm) - Length 0.3 -Current Size (cm) - Width 0.4 -Current Size (cm) - Depth 0.1 -Total Square Cm 0.12 -Date of Last Picture (Recall this 12/09/23 field) -Photo Taken Yes -Tunneling No -Undermining/Tunneling No -Circular Undermining No -Texture (Terri-wound Skin Appearance) Assessed -Moisture (Terri-wound Skin Appearance) Assessed -Color (Terri-wound Skin Appearance) Assessed -Temperature (Terri-wound Skin No Abnormality Appearance) (Pt Warm) -Tenderness on Palpation (Terri-wound No Skin Appearance) -Ulcer Cleansing Soap and Water -Anesthetic Used 5% Lidocaine Gel #3 LT HALLUX -Current Size (cm) - Length 0.8 0.5 0.1 -Current Size (cm) - Width 0.8 0.4 0.1 -Current Size (cm) - Depth 0.1 0.1 0.1 -Total Square Cm 0.64 0.20 0.01 -Date of Last Picture (Recall this 12/16/23 field) -Photo Taken No Yes -Epithelialization Large 67-100% -Tunneling No No -Undermining/Tunneling No No -Circular Undermining No No -Exudate Amt Small None Present None Present -Exudate Type Serosanguineous -Wound Margin Distinct, Distinct, Indistinct, Non Outline Outline -Visible Attached Attached -Granulation Amt Large (67-100%) Large (67-100%) None Present (0 %) -Granulation Quality Red [place] N/A -Necrosis Amt None Present (0 %) -Texture (Terri-wound Skin Appearance) Assessed Assessed Assessed -Moisture (Terri-wound Skin Appearance) Assessed Assessed -Color (Terri-wound Skin Appearance) Assessed, Assessed Assessed Erythema -Temperature (Terri-wound Skin No Abnormality No Abnormality Appearance) (Pt Warm) (Pt Warm) -Tenderness on Palpation (Terri-wound No Skin Appearance) -Ulcer Cleansing Soap and Water Soap and Water -Foul Odor after Cleansing No -Anesthetic Used 5% Lidocaine 5% Lidocaine Gel Gel 1. L Lateral foot POST-OP -Current Size (cm) - Length 1.3 0.7 0.7 -Current Size (cm) - Width 0.5 1.5 0.1 -Current Size (cm) - Depth 0.3 0.5 0.5 -Total Square Cm 0.65 1.05 0.07 -Date of Last Picture (Recall this 11/25/23 12/16/23 field) -Photo Taken No Yes -Epithelialization None Present -Tunneling No -Undermining/Tunneling No No -Circular Undermining No No -Exudate Amt Small Small Small -Exudate Type Serosanguineous Serosanguineous Serosanguineous -Wound Margin Distinct, Distinct, Distinct, Outline Outline Outline Attached Attached Attached -Granulation Amt Small (1-33%) Small (1-33%) Small (1-33%) -Granulation Quality [place] -Necrosis Amt Large (67-100%) Medium (34-66%) -Necrotic Tissue Type Adherent Slough Adherent Slough -Texture (Terri-wound Skin Appearance) Assessed Assessed Assessed -Moisture (Terri-wound Skin Appearance) Assessed, Assessed Assessed, Maceration Maceration -Color (Terri-wound Skin Appearance) Assessed, Assessed Assessed Erythema -Temperature (Terri-wound Skin No Abnormality No Abnormality No Abnormality Appearance) (Pt Warm) (Pt Warm) (Pt Warm) -Tenderness on Palpation (Terri-wound No Skin Appearance) -Ulcer Cleansing Soap and Water Soap and Water Soap and Water -Foul Odor after Cleansing No No -Anesthetic Used 5% Lidocaine 5% Lidocaine 5% Lidocaine Gel Gel Gel Left Calf (cm) 26 Left Ankle (cm) 22 - Nurse 2 - General Ulcer CM Notes Start: 11/25/23 15:42 Freq: Status: Active Protocol: Activity Type Activity Date Activity User E-sign Co-sign Detail Recorded Client Recorded Date Recorded By Document 11/25/23 16:19 [id number] 11/25/23 16:21 Document 12/09/23 13:03 [id number] 12/09/23 13:05 Document 12/16/23 12:34 [id number] 12/16/23 12:38 11/25/23 12/09/23 12/16/23 16:19 13:03 12:34 Wound Center Nurse 2 #4 right lateral foot -Time 13:03 -Correct Patient Yes No -Correct Side, Site, Position Yes No -Correct Procedure Yes No -Procedure Performed Yes No -Type of Procedure Debridement -Clinical Debridement Epidermis / Dermis -Tissue Removed Epidermis, Dermis -Post Debridement (cm) - Length 0.1 0 -Post Debridement (cm) - Width 0.1 0 -Post Debridement (cm) - Depth 0.1 0 -Total Square (Post) (cm) 0.01 0 -Area of Debridement (cm) - Length 0.1 0 -Area of Debridement (cm) - Width 0.1 0 -Total Square (Area) (cm) 0.01 0 -Tunneling No -Undermining/Tunneling No -Circular Undermining No -Wound/Ulcer Outcome Not Healed Healed- Epithelialized -Ulcer Cleansing Rinsed/ Irrigated with Saline -Foul Odor after Cleansing No -Bioengineered Tissue No -Bleeding Controlled with Pressure -Treatment Response Procedure Tolerated Well -Offloading No -Debridement - Open, 1st 20sq cm Yes #3 LT HALLUX -Time 13:04 12:36 -Correct Patient No Yes No -Correct Side, Site, Position No Yes No -Correct Procedure No Yes No -Procedure Performed No Yes No -Type of Procedure Debridement -Clinical Debridement Subcutaneous -Post Debridement (cm) - Length 0.4 0.1 -Post Debridement (cm) - Width 0.3 0.1 -Post Debridement (cm) - Depth 0.1 0.1 -Total Square (Post) (cm) 0.12 0.01 -Area of Debridement (cm) - Length 0.4 0.1 -Area of Debridement (cm) - Width 0.3 0.1 -Total Square (Area) (cm) 0.12 0.01 -Tunneling No No -Undermining/Tunneling No No -Circular Undermining No No -Wound/Ulcer Outcome Not Healed Not Healed Not Healed -Ulcer Cleansing Rinsed/ Rinsed/ Irrigated with Irrigated with Saline Saline -Foul Odor after Cleansing No No -Bioengineered Tissue No No -Bleeding Controlled with Pressure Pressure -Treatment Response Procedure Procedure Tolerated Well Tolerated Well -Offloading No No -Debridement - Subq, 1st 20sq cm No No 1. L Lateral foot POST-OP -Time 16:20 13:04 12:38 -Correct Patient Yes Yes Yes -Correct Side, Site, Position Yes Yes Yes -Correct Procedure Yes Yes Yes -Procedure Performed Yes Yes Yes -Type of Procedure Debridement Debridement Debridement -Clinical Debridement Subcutaneous Subcutaneous Subcutaneous -Tissue Removed Subcutaneous Subcutaneous -Post Debridement (cm) - Length 1.3 1.1 1.0 -Post Debridement (cm) - Width 0.6 0.3 0.4 -Post Debridement (cm) - Depth 0.5 0.4 0.5 -Total Square (Post) (cm) 0.78 0.33 0.40 -Area of Debridement (cm) - Length 1.3 1.1 1.0 -Area of Debridement (cm) - Width 0.6 0.3 0.4 -Total Square (Area) (cm) 0.78 0.33 0.40 -Tunneling No No No -Undermining/Tunneling No No No -Circular Undermining No No No -Wound/Ulcer Outcome Not Healed Not Healed Not Healed -Ulcer Cleansing Rinsed/ Rinsed/ Rinsed/ Irrigated with Irrigated with Irrigated with Saline Saline Saline -Foul Odor after Cleansing No No No -Bioengineered Tissue No No No -Bleeding Controlled with Pressure Pressure Pressure -Treatment Response Procedure Procedure Procedure Tolerated Well Tolerated Well Tolerated Well -Offloading Yes No -Type of Offloading Surgical Shoe -Debridement - Subq, 1st 20sq cm Yes Yes Yes Pain Scale: 0-10 Numeric Is Patient Pain Free? Yes Yes Yes WC - Nurse 3 - General Ulcer D/C NN Start: 11/25/23 15:42 Freq: Status: Active Protocol: Activity Type Activity Date Activity User E-sign Co-sign Detail Recorded Client Recorded Date Recorded By Document 11/25/23 16:30 KW [id number] 11/25/23 16:33 KW Document 12/02/23 15:08 ML [id number] 12/02/23 15:11 ML Document 12/09/23 13:19 [facility] [id number] 12/09/23 13:21 BM 11/25/23 12/02/23 12/09/23 16:30 15:08 13:19 Wound Care Center Nurse 3 #4 right lateral foot -Ulcer Cleansing Rinsed/ Irrigated with Saline -Foul Odor after Cleansing No -Other Dressing betadine paint -Primary Dressing Covered/Secured with Dry Gauze, Secured with Tape -Other Covering per DS RN #3 LT HALLUX -Ulcer Cleansing Rinsed/ Rinsed/ Rinsed/ Irrigated with Irrigated with Irrigated with Saline Saline Saline -Foul Odor after Cleansing No No -Other Dressing BETADINE betadine betadine paint; per DS RN -Primary Dressing Covered/Secured with Dry Gauze, Dry Gauze, Dry Gauze, Secured with Secured with Secured with Tape Tape Tape 1. L Lateral foot POST-OP -Ulcer Cleansing Rinsed/ Rinsed/ Irrigated with Irrigated with Saline Saline -Foul Odor after Cleansing No No -Negative Pressure Wound Therapy Start -Setting (mmHg) 125 -Negative Pressure is Continuous -Primary Dressing Applied Promogran Promogran Anika Matter Anika Matter -Other Dressing snap applied per DS RN -Primary Dressing Covered/Secured with Dry Gauze, Dry Gauze & Secured with Roll Gauze, Tape Secured with Tape -NPWT Application Charge NPWT & Debridement (nc ) -Promogran Anika Matter 1 1 Left -Compression Wrap Thad Wrap -Tubular Bandage Single Layer Single Layer -Size of Tubigrip Used Size D Size D -Size D ($) 1 1 Treatment Response Procedure Tolerated Well Pain Scale: 0-10 Numeric Is Patient Pain Free? Yes Yes Yes WC - Visit Discharge Discharge Condition Stable Stable Ambulatory Status Wheelchair Ambulatory Transportation Private Auto Private Auto Accompanied by Facility Type Home Health Home Health Orders Sent Yes Assessment/Plan Assessment/Plan (1) Non-pressure chronic ulcer of other part of left foot with fat layer exposed: CODE(S): L97.522 - Non-pressure chronic ulcer of other part of left foot with fat layer exposed PLAN: Patient was examined and evaluated. All findings were discussed with the patient. All questions were answered to the patient satisfaction. Excisional debridement down to and including subcutaneous tissue to the left lateral full-thickness ulceration with a number 3 mm dermal curette without incident. Predebridement measurement is 0.8 x 0.3 x 0.3 cm. Postdebridement measurement is 1.0 x 0.4 x 0.5 cm. A snap VAC was applied to the left lower extremity lateral full-thickness wound. Betadine paint and Band-Aid was applied left hallux. Betadine paint and a Band-Aid was applied to the styloid process of the right foot. Patient will continue dressing changes as educated. He will leave the snap clean dry and intact and not removed. The patient will follow-up in 1 week for snap VAC change to the lateral left foot. If he is having any issues he is to reach out to the wound care center to follow-up with one of the additional podiatrists if needed. Follow-up at the wound care center with Dr. Guaman in 2 week.
--- NOTE | 2023-12-17 10:07 | WC ---
PHOTO 12/16/23 LEFT LATERAL FOOT
== END 2023-12-17 23:59 | disposition home or self-care (01) ==
LOC: WC 12:30
PROVIDERS: PCP Family Medicine; Referring Provider Podiatrist Foot & Ankle Surgery; Visit Provider Podiatrist Foot & Ankle Surgery
DX: L97.522 Non-pressure chronic ulcer of other part of left foot with fat layer exposed (principal); M79.675 Pain in left toe(s); M25.551 Pain in right hip; M79.674 Pain in right toe(s); M25.571 Pain in right ankle and joints of right foot; Z79.82 Long term (current) use of aspirin; Z79.01 Long term (current) use of anticoagulants; Z79.899 Other long term (current) drug therapy
CPT/HCPCS: 11042; 73610; 73630; 97597; 97607; 99211; G0463

== ENCOUNTER → 2023-12-18 | Outpatient (CLI) | payer MEDICARE, SELFPAY ==
--- NOTE | 2023-12-18 14:28 | CT_ITS ---
EXAM: CT CHEST, LUNG CANCER SCREENING WITHOUT INTRAVENOUS CONTRAST CLINICAL INDICATION: smoker and gt;40 pack years TECHNIQUE: Helically acquired images were obtained of the chest without intravenous contrast using low dose (LDCT) lung cancer screening protocol. This CT exam was performed using one or more of the following dose reduction techniques: automated exposure control, adjustment of the mA and/or kV according to patient size, and/or use of iterative reconstruction technique. COMPARISON: Chest radiograph 11/04/2023 FINDINGS: LUNGS AND PLEURAL SPACES: Diffuse centrilobular emphysematous changes of lungs noted. Peripheral blebs noted along both lung apices. No evidence of a lung mass or suspicious pulmonary nodule. No pleural effusion or thickening. No pneumothorax. HEART: Prominent coronary artery calcification. No pericardial effusion. Normal heart size. MEDIASTINUM: Normal. No mediastinal or hilar adenopathy. Esophagus is unremarkable. No hiatal hernia. THYROID: Normal. No thyroid nodules or calcification. BONES/JOINTS: No suspicious lytic or blastic abnormality. VASCULATURE: No aortic aneurysm. LYMPH NODES: Normal. No enlarged lymph nodes. TUBES, LINES AND DEVICES: Sternal wires noted. CT/Low Dose CT Lung Screening IMPRESSION: 1. Prominent diffuse pulmonary emphysema. 2. No evidence of a lung mass or nodule. Lung-RADS score: 1S - Negative. Additional clinically significant or potentially clinically significant findings are described. Recommend continued annual screening with a low-dose CT (LDCT) in 12 months. Electronically Signed: Geraldo Jimenez MD at 17:02 [facility] ,
== END | disposition home or self-care (01) ==
LOC: CT 14:20
PROVIDERS: PCP Family Medicine; Referring Provider Nurse Practitioner Acute Care; Visit Provider Nurse Practitioner Acute Care
DX: F17.210 Nicotine dependence, cigarettes, uncomplicated (principal)
CPT/HCPCS: 71271

== ENCOUNTER 2023-12-31 18:13 | Emergency (ER) | payer MEDICARE, SELFPAY ==
[2023-12-31] VITALS (7 sets, daily range): BP systolic 108–143; BP diastolic 62–84; PULSE 84–98; RESP 16–18; TEMP 36.6–36.9; O2SAT 93–100; BMI 22.0
--- NOTE | 2023-12-31 19:22 | EKG12_ITS ---
Test Reason : HYPOTENSION Blood Pressure : */* mmHG Vent. Rate : 87 BPM Atrial Rate : 87 BPM P-R Int : 160 ms QRS Dur : 88 ms QT Int : 352 ms P-R-T Axes : 67 45 58 degrees QTcB Int : 423 ms Normal sinus rhythm Normal ECG Confirmed by JOHN OCHOA, FABIANA ([id number]), editor department ANDREW VALDEZ ([id number]) on 01/05/2024 7:51:20 AM Referred By: EVERETTE Confirmed By: FABIANA LOPEZ MD
--- NOTE | 2023-12-31 19:24 | EDS_ITS ---
HPI History of Present Illness Chief Complaint: Hypotension Informant: patient and spouse/S.O. Onset/Context/Timing Onset: Today Context: Gradual Onset Timing: Intermittent Current Severity: Mild Maximum Severity: Mild Narrative Narrative: 73-year-old male history of COPD, and CKD, he is chronically on 3+ liters of ox ygen, prior DVT on the blood thinner Eliquis. Due to recently has had a URI. He is also an infection of his left lateral foot. He sees podiatry and had him on doxycycline for 14 days. They saw the one recently incidence looking better. Today was at his primary care physician's office and had a blood pressure of around 88 / 66. Primary care physician when he was seen in the emergency department to rule out sepsis. Reportedly did an elevated lactic acid. Patient denies vomiting, diarrhea or fever. No melena. No dysuria but recent UTI was hospitalized for. Prior similar symptoms: No PFSH PFSH Medical History Depression Anxiety Smoker Sleep apnea Insulin resistance CKD stage 3b, GFR 30-44 ml/min Anemia Chronic kidney disease Chronic anticoagulation History of COPD Other specified peripheral vascular diseases Hx of blood clots HTN (hypertension) Asthma COPD (chronic obstructive pulmonary disease) Tobacco dependence syndrome COLD (chronic obstructive lung disease) Home Medications ?Medication ?Instructions ?Recorded ?Last Taken ?Type aspirin 81 mg chewable tablet 81 mg PO DAILY@0800 [facility] 02/03/14 11/04/23 History budesonide-formoterol HFA 160 2 puff PO BID COPD 02/03/14 11/04/23 History mcg-4.5 mcg/actuation aerosol inhaler (Symbicort) albuterol sulfate 90 mcg/actuation 2 puff inhalation Q4H PRN PRN Sob 08/24/18 11/04/23 History aerosol inhaler &/Or Wheezing apixaban 5 mg tablet 5 mg PO BID BLOOD THINNER 08/24/18 11/04/23 History lisinopril 20 mg tablet 20 mg PO DAILY bp 08/24/18 11/04/23 History metoprolol tartrate 50 mg tablet 50 mg PO BID HTN 08/24/18 11/04/23 History pravastatin 10 mg tablet 10 mg PO QHS HIGH CHOLESTEROL 10/04/22 11/04/23 History sucralfate 1 gram tablet (Carafate) 1 g PO TID GASTRIC ULCERS 30 days 10/24/22 11/03/23 Rx #90 tabs PEP device #1 ea 11/06/22 Unknown Rx folic acid 400 mcg tablet 0.4 mg PO DAILY DIETARY SUPPLEMENT 11/06/22 07/06/23 History cyanocobalamin (vitamin B-12) 100 100 mcg PO DAILY VITAMIN SUPPLEMENT 04/16/23 07/06/23 History mcg tablet (Vitamin B-12) cholecalciferol (vitamin D3) 25 25 mcg PO DAILY DIETARY SUPPLEMENT 05/27/23 11/04/23 History mcg (1,000 unit) capsule (Vitamin D3) acetaminophen 500 mg tablet 1,000 mg (2 x 500 mg) PO Q8 #0 tabs 07/15/23 Unknown Rx amlodipine 2.5 mg tablet 2.5 mg PO DAILY #0 tabs 07/15/23 11/04/23 Rx docusate sodium 100 mg capsule 100 mg PO BID #0 caps 07/15/23 Unknown Rx pramipexole 0.5 mg tablet 1 mg (2 x 0.5 mg) PO QHS #0 tabs 07/15/23 11/03/23 Rx sennosides 8.6 mg-docusate sodium 2 tab PO BID PRN PRN Constipation 07/15/23 Unknown Rx 50 mg tablet (Stool #0 tabs Softener-Stimulant Laxative) ipratropium 0.5 mg-albuterol 3 mg 3 ml inhalation Q4H PRN shortness 10/05/23 Unknown Rx (2.5 mg base)/3 mL nebulization of breath or wheezing #540 mL soln bupropion HCl 150 mg 24 hr tablet, 150 mg PO DAILY Anxiety 11/04/23 11/04/23 History extended release guaifenesin 1,200 mg tablet, 1,200 mg PO BID PRN Mucus 11/04/23 11/04/23 History extended release 12 hr (Mucinex) nicotine 21 mg/24 hr daily 1 patch topical DAILY PRN smoker 11/04/23 Unknown History transdermal patch ropinirole 0.5 mg tablet 0.5 mg PO TID Restless legs 11/04/23 11/04/23 History pantoprazole 40 mg tablet,delayed 40 mg PO BID #0 tabs 11/12/23 Unknown Rx release prednisone 10 mg tablet 30 mg (3 x 10 mg) PO BREAKFAST #0 11/12/23 Unknown Rx tabs famotidine 20 mg tablet 20 mg PO QHS 14 days #14 tabs 12/31/23 Unknown Rx Allergy/AdvReac Type Severity Reaction Status Date / Time azithromycin (From Zithromax) Allergy Swelling Verified 12/31/23 18:18 Penicillins Allergy Hives Verified 12/31/23 18:18 shellfish derived Allergy Hives Verified 12/31/23 18:18 venom-honey bee (bee venom Allergy Hives Verified 12/31/23 18:18 (honey bee)) Family History Other Asthma CAD (coronary artery disease) CVA (cerebral vascular accident) Cancer Diabetes Heart disease Hypertension Myocardial infarction Surgical History History of appendectomy Heart valve replaced History of hand surgery H/O neck surgery Social History Smoking Status: Current every day smoker tobacco type: cigarettes Tobacco: How many years used: 62 alcohol intake: current alcohol intake frequency: a few times a week Alcohol type: beer seatbelt use: always ROS ROS ED ROS Narrative URI. Constitutional Constitutional ED: Denies chills or fever(s) Eyes Eyes: Denies blurry vision ENT ENT ED: Denies ear pain Cardiovascular Cardiovascular: Denies chest pain Respiratory/Chest Respiratory/Chest: Reports cough Gastrointestinal Gastrointestinal: Denies abdominal pain, diarrhea, melena or vomiting Genitourinary Genitourinary ED: Denies dysuria or hematuria Musculoskeletal Musculoskeletal: Denies arthralgias Integumentary Denies abscess Neurologic Neurologic: Denies headache(s) Psychiatric Psychiatric: Denies anxiety Endocrine Endocrinology: Denies cold intolerance Hematologic/Lymphatic Hematologic/Lymphatic: Reports none Allergic/Immunologic Allergic/Immunologic ED: Denies mouth swelling, tongue swelling or urticaria EXAM Physical Exam Narrative Exam Narrative: 73-year-old male initial blood pressure 108/62. Patient does not look septic or toxic. Currently in no acute distress. Pulse ox 93% on chronic 3 L. He is not hypoxic on his oxygen. H EENT exam unremarkable. Pupils round react light. Neck nontender. No JVD. No lymphadenopathy. Lungs diminished breath sounds bilaterally. No rales, rhonchi or wheezing. Equal symmetrical. Heart regular rhythm rate about 95 no murmur. Chest wall ribs nontender. Abdomen soft nontender. Nondistended. No peritoneal signs. Moving all 4 extremities. Nontender no edema. No deformity. Dressed a wound on his left lateral foot. No cellulitis. No purulent discharge or lymphangitic streaking. Back nontender. Neurologically is awake and alert. No focal motor deficits. Answering questions and following commands. Const Vital Signs: 12/31/23 18:16 12/31/23 19:18 12/31/23 20:00 Temperature 97.8 F 98.0 F 97.9 F Temperature Source Temporal Oral Oral Pulse Rate 98 84 87 Respiratory Rate 18 18 18 Respiratory Effort Respiratory Pattern Blood Pressure 108/62 113/68 117/68 Blood Pressure Mean 77 83 84 Pulse Ox 93 100 100 Oxygen Delivery Method Nasal Cannula Nasal Cannula Nasal Cannula Oxygen Flow Rate (L/min) 3 3 1.5 12/31/23 20:11 12/31/23 20:11 12/31/23 21:00 Temperature 98.0 F Temperature Source Oral Pulse Rate 97 Respiratory Rate 18 Respiratory Effort Normal Non-Labored Respiratory Pattern Normal Blood Pressure 139/79 H Blood Pressure Mean 99 Pulse Ox 100 96 Oxygen Delivery Method Nasal Cannula Nasal Cannula Oxygen Flow Rate (L/min) 1.5 1.5 12/31/23 22:00 12/31/23 22:40 Temperature 98.5 F 98.5 F Temperature Source Oral Pulse Rate 94 98 Respiratory Rate 18 16 Respiratory Effort Respiratory Pattern Blood Pressure 127/76 H 143/84 H Blood Pressure Mean 93 103 Pulse Ox 99 95 Oxygen Delivery Method Nasal Cannula Oxygen Flow Rate (L/min) 1.5 Positive well nourished and well developed; Negative for obese, cachectic, contractures or unkempt General Appearance ED: well developed and NAD; Negative for unkempt, cachectic, contractures, cyanotic, diaphoretic or pallor Nutritional Appearance: Negative for cachectic or obese HEENT Reports moist mucous membranes Negative for trauma or tenderness Eyes PERRL and EOMs intact bilaterally General Eye ED: Negative for pale conjunctiva or scleral icterus Neck no lymphadenopathy, supple and no JVD General: Negative for tenderness Lymph Lymphatic: Negative for other Chest Wall inspection of chest normal and palpation of chest normal Chest: Negative for other Resp normal respiratory effort and clear to auscultation bilaterally Effort and Inspection: Negative for retractions Auscultation: diminished lung sounds; Negative for rales, rhonchi or wheezes Cardio regular rate, regular rhythm, S1 normal heart sound, S2 normal heart sound and no murmurs Rate: Negative for bradycardia, tachycardic or other Rhythm: Negative for abnormal rhythm GI normal to inspection, nondistended, normoactive bowel sounds, non-tender, non- distended and no masses; Negative for hepatosplenomegaly Inspection: Negative for abdominal distention Auscultation: normoactive bowel sounds Palpation: soft; Negative for tender, guarding or rebound tenderness present Back/Spine no CVA tenderness General Back: Negative for CVA tenderness or other Cervical Spine: Negative for cervical spine tenderness Thoracic Spine / Upper Back: Negative for thoracic spinal tenderness or paraspinal muscle tenderness Lumbar Spine / Lower Back: Negative for lumbar spinal tenderness Extremity normal to inspection Extremity Narrative: Old healing wound left lateral foot. General Extremety ED: Negative for edema or tenderness General Extremity: Negative for edema Neuro oriented x3 and CN's II-XII intact bilaterally Sensorium / Orientation: alert; Negative for orientation impaired, lethargic or stuporous Motor Exam: strength 5/5 throughout; Negative for general weakness or strength abnormal Psych mental status grossly normal Appearance: Negative for unkempt Attitude: No agitated Mood & Affect: Negative for depressed, anxious or tearful Skin no rashes or lesions noted and no wounds General Skin Exam: Negative for jaundice or pallor Lesions: No lesion noted Trauma: Negative for abrasion MDM MDM MDM Narrative Medical decision making narrative: 73-year-old male with hypertension to primary care physician's office role of sepsis versus dehydration versus other etiologies. Septic workup being pursued. Treated with a liter normal saline. Repeat exam patient is doing well at 10:27 PM. Patient doing well. Current blood pressure was 123/84 I rechecked it was 142/86. I discussed and went over all the test results with the patient. He has had recent erosive esophagitis. He has not had any hematemesis or noticed any black or bloody stool. I did do a rectal exam there was no black stool or bright red blood in his rectum. We discussed treatment options such as being admitted to have a repeat blood count done versus going home and having a repeat blood count done. He was just recently scoped. He is currently on both Carafate and Protonix. He preferred not to be admitted. And will follow-up with his primary care physician and have repeat blood count done early next week. I have his primary care physician on page. He and his are comfortable with the plan. I spoke to the physician covering his primary care physician. He wanted me to start him on a short course of famotidine also on top of this Protonix and Carafate. And they will follow him up as an outpatient. History & Record Review Discussion w/independent historian: Patient and Family Additional record(s) reviewed:: Prior inpatient record, Prior outpatient record, Prior ED visit and Prior labs Lab Data Attestation: I reviewed the patient's lab results. Lab results narrative: CBC shows a white 11.4. H&H 9.6 and 30.6. Platelets 410. PT/INR of 15 and 1. PTT of 34. Lactic acid is normal at 1.9. Electrolytes show a gap of 5. BUN and creatinine of 42 and 2.0 Glucose 118. Liver enzymes normal. Urinalysis is negative. No white or red cells. Chest x-ray negative. Labs are consistent with prior anemias and prior renal insufficiency. He has no acute signs of bleeding at this time. Labs: Laboratory Results - last 24 hr 12/31/23 12/31/23 19:40 20:00 WBC 11.4 H RBC 3.13 L Hgb 9.6 L Hct 30.6 L MCV 97.8 H MCH 30.7 MCHC 31.4 L RDW Std Deviation 54.1 H RDW Coeff of Meek 15.0 H Plt Count 410 MPV 9.4 Immature Gran % (Auto) 1.300 H Neut % (Auto) 82.7 H Lymph % (Auto) 10.5 L [place] % (Auto) 3.3 Eos % (Auto) 1.7 Baso % (Auto) 0.5 Absolute Neuts (auto) 9.4 H Absolute Lymphs (auto) 1.20 Nucleated RBC % 0 PT 15.2 H INR 1.2 APTT 34.2 Sodium 140 Potassium 5.1 Chloride 107 Carbon Dioxide 29.0 Anion Gap 5 BUN 42 H Creatinine 2.07 H Est GFR (MDRD) Af Amer 41 L Est GFR (MDRD) Non-Af 34 L BUN/Creatinine Ratio 20.3 H Glucose 118 H Lactic Acid 1.9 Calcium 9.4 Total Bilirubin 0.30 AST 11 L ALT 13 L Alkaline Phosphatase 55 Total Protein 6.5 Albumin 2.9 L Globulin 3.6 Albumin/Globulin Ratio 0.8 L Urine Color Yellow Urine Clarity Clear Urine pH 6.0 Ur Specific [place] 1.010 Urine Protein 15 H Urine Glucose (UA) 50 H Urine Ketones Negative Urine Occult Blood Negative Urine Nitrite Negative Urine Bilirubin Negative Urine Urobilinogen Normal Ur Leukocyte Esterase Negative Urine RBC 0 SEEN Urine WBC 0 SEEN Ur Squamous Epith Cells 0 SEEN Urine Bacteria 0 SEEN Urine Mucus 0 SEEN Radiography Chest X-Ray - ED: 1 View, Read by ED Physician, Read by Radiologist, Lungs, Bony Structures, No Acute Disease and Chronic Changes Diagnostic Testing: Clinical Impression(s) from Imaging Studies Chest X-Ray 12/31/23 19:42 IMPRESSION: Degenerative postoperative changes, as described above. No demonstrated acute cardiopulmonary process. Electronically Signed: Jon Paul MD at 20:18 EST Reading Location ID and State: [address] [place] [address] , Service support , Portable chest x-ray, single view interpreted both by myself and the radiologist shows no acute abnormality. Bilateral prosthetic shoulder replacements. Normal cardiac silhouette. No infiltrates. Chronic changes. Rhythm Strip Rhythm Strip: Sinus Rhythm Rate: 87 Ectopy: None EKG Initial EKG: Attestation: I personally reviewed and interpreted this EKG as follows: Interpretation: Sinus Rhythm and No Acute Injury Pattern Comments: Normal sinus rhythm rate 87 no acute signs of [place] nor ischemia nor dysrhythmia. Discharge Plan Triage Chief Complaint: Hypotension ED Provider: Bernabe Barkley Dx/Rx/DC Orders Clinical Impression: Acute hypotension, Chronic anemia, History of GI bleed, History of renal insufficiency, Chronic anticoagulation Instructions: Anemia, Hypotension Dc Prescriptions: New famotidine 20 mg tablet 20 mg PO QHS 14 Days Qty: 14 0RF No Action folic acid 400 mcg tablet 0.4 mg PO DAILY (DME) PEP device See Rx Instructions .ROUTE .MEDSUPPLY Qty: 1 0RF Rx Instructions: with training cyanocobalamin (vitamin B-12) [Vitamin B-12] 100 mcg tablet 100 mcg PO DAILY Patient Comments: TAKE 1 TABLET BY MOUTH EVERY DAY aspirin 81 MG tablet,chewable 81 mg PO DAILY@0800 Patient Comments: [facility] budesonide-formoterol [Symbicort] 1 INHALER inhaler 2 puff PO BID Patient Comments: COPD metoprolol tartrate 50 MG tablet 50 mg PO BID apixaban 5 MG tablet 5 mg PO BID lisinopril 20 MG tablet 20 mg PO DAILY albuterol sulfate 18 GM HFA aerosol inhaler 2 puff inhalation Q4H PRN PRN (Reason: Sob &/Or Wheezing) pravastatin 10 mg tablet 10 mg PO QHS Patient Comments: TAKE 1 TABLET BY MOUTH EVERY DAY cholecalciferol (vitamin D3) [Vitamin D3] 25 mcg (1,000 unit) capsule 25 mcg PO DAILY pramipexole 0.5 mg Tablet 1 mg PO QHS Qty: 0 0RF sennosides-docusate sodium [Stool Softener-Stimulant Laxat] 8.6-50 mg Tablet 2 tab PO BID PRN PRN (Reason: Constipation) Qty: 0 0RF docusate sodium 100 mg Capsule 100 mg PO BID Qty: 0 0RF amlodipine 2.5 mg Tablet 2.5 mg PO DAILY Qty: 0 0RF acetaminophen 500 mg Tablet 1,000 mg PO Q8 Qty: 0 0RF Patient Comments: Takes PRN ropinirole 0.5 mg tablet 0.5 mg PO TID nicotine 21 mg/24 hr patch 24 hour 1 patch topical DAILY PRN (Reason: smoker) guaifenesin [Mucinex] 1,200 mg tablet extended release 12hr 1,200 mg PO BID PRN bupropion HCl 150 mg tablet extended release 24 hr 150 mg PO DAILY pantoprazole 40 mg Tablet,Delayed Release (Dr/Ec) 40 mg PO BID Qty: 0 0RF prednisone 10 mg tablet 30 mg PO BREAKFAST Qty: 0 0RF Rx Instructions: 3 tabs daily for 3 days then 2 tabs daily for 3 days then 1 tablet daily for 3 days then half tab daily for 4 days sucralfate [Carafate] 1 gram tablet 1 g PO TID 30 Days Qty: 90 2RF ipratropium-albuterol 0.5 mg-3 mg(2.5 mg base)/3 mL solution for nebulization 3 ml inhalation Q4H PRN (Reason: shortness of breath or wheezing) Qty: 540 3RF Primary Care Provider: Cherelle Cutler: Cherelle Cutler, DO [Primary Care Provider] - As soon as possible (Call her office Thursday morning. Tell them you are in the ER. You need to have your blood rechecked next week and be reexamined. Your blood count was low today and your hemoglobin was 9.6.) Activity Restrictions/Additional Instructions: Continue your current medications. Call and follow-up with your doctor next week to have your blood counts reevaluated. Return if you are feeling worse or if your blood pressures consistently running below 100. Print Language: Citizen Of [place] Disposition Disposition: Home, Self Care Discharge Date/Time: 12/31/23 22:54
--- NOTE | 2023-12-31 19:42 | RAD_ITS ---
STUDY: X-RAY CHEST REASON FOR EXAM: Male, 73 years old. Cough TECHNIQUE: Single AP portable view of the chest. COMPARISON: December 18, 2023 CT November 04, 2023 x-ray FINDINGS: There is hyperinflation of the lungs consistent with chronic obstructive lung disease (COPD). There is no demonstrated pleural abnormality. Sternal cerclage wires are present from a prior sternotomy. Normal mediastinum and bart. Normal visualized pulmonary arteries. There is atherosclerotic calcification of the aortic arch. Normal visualized thoracic spine. There is postoperative change of the cervical spine. There are bilateral reverse shoulder replacement. There is no demonstrated abnormality of the visualized soft tissue structures of the upper abdomen. RAD/Chest 1 View (Portable) IMPRESSION: Degenerative postoperative changes, as described above. No demonstrated acute cardiopulmonary process. Electronically Signed: Jon Paul MD at 20:18 EST ,
[2023-12-31] MEDS: 0.9% Normal Saline (1000mL) 1,000 ML 999 ML IV (19:43)
[2023-12-31 19:51] LABS: Absolute Neutrophil Count 9.4 X10^3/uL (2.0-7.7); Basophil# 0.06 X10^3/uL; Basophil% 0.5 % (0-1); Eosinophils% 1.7 % (0-5); Hematocrit 30.6 % (40-54); Hemoglobin 9.6 g/dL (13.0-16.5); Lymphocyte % 10.5 % (19-41); Mean Corp Hgb Conc 31.4 g/dL (32-36); Mean Corpuscular Hgb 30.7 pg (27.0-32.0); Mean Corpuscular Volume 97.8 fL (80-94); Mean Platelet Vol. 9.4 fl (6.2-12.0); Monocyte# 0.38 X10^3/uL; Monocyte% 3.3 % (0-10); NRBC Flagged by Analyzer 0 % (0-5); Neutrophil # 9.44 X10^3/uL (2.7-7.7); Neutrophil % 82.7 % (47-70); Platelet Count 410 K/mm3 (150-450); RBC Distribution Width SD 54.1 fl (35.1-43.9); Red Blood Count 3.13 M/mm3 (4.6-6.2); White Blood Count 11.4 K/mm3 (4.4-11.0)
[2023-12-31 20:01] LABS: International Normalized Ratio 1.2; Partial Thromboplast Time 34.2 Seconds (24.1-36.2); Prothrombin Time (Protime)PT. 15.2 SECONDS (11.7-14.9)
[2023-12-31 20:08] LABS: ALB/GLOB Ratio 0.8 RATIO (0.9-2.4); AST(SGOT) 11 U/L (15-37); Alanine Aminotransfer ALT/SGPT 13 U/L (16-61); Albumin, Serum 2.9 g/dL (3.2-5.0); Alkaline Phosphatase 55 U/L (45-117); Anion Gap 5 (5-15); BUN 42 mg/dL (7-18); BUN/Creat Ratio 20.3 RATIO (10-20); Calcium,Total 9.4 mg/dL (8.5-10.1); Chloride 107 mmol/L (98-107); Creatinine, Serum 2.07 mg/dL (0.70-1.30); EST Glomerular Filtration Rate 34 mL/min (>60); Est Glom Filt Rate - Afr Amer 41 mL/min (>60); Globulin 3.6 g/dL (2.2-4.2); Glucose 118 mg/dL (74-106); Potassium 5.1 mmol/L (3.5-5.1); Protein, Total 6.5 g/dL (6.4-8.2); Sodium Level 140 mmol/L (136-145)
[2023-12-31 20:18] LABS: Bacteria 0 SEEN /hpf (None Seen); Mucous, Urine 0 SEEN /hpf (<or=2+); Red Blood Cells-Urine 0 SEEN /hpf (0-5); Squamous Epithelial Cells - UA 0 SEEN /hpf (0-5); White Blood Cells 0 SEEN /hpf (0-5)
[2023-12-31 20:26] LABS: Color, Urine Yellow (Yellow); Glucose, Dipstick 50 mg/dl (Normal); Ketone-Dipstick Negative (Negative); Leukocyte Esterase-Dipstick Negative /ul (Negative); Nitrite-Dipstick Negative (Negative); Occult Blood-Urine Negative /ul (Negative); Protein-Dipstick 15 mg/dl (Negative); Urine Bilirubin Dipstick Negative (Negative); Urine Clarity Clear (Clear); Urine Urobilinogen Normal (Normal)
[2023-12-31 20:41] LABS: Lactic Acid 1.9 mmol/L (0.4-1.9)
== END 2023-12-31 22:54 | disposition home or self-care (01) ==
PROVIDERS: Emergency Provider Emergency Medicine; PCP Family Medicine; Visit Provider Emergency Medicine
DX: I95.9 Hypotension, unspecified (principal); J44.9 Chronic obstructive pulmonary disease, unspecified; N18.32 Chronic kidney disease, stage 3b; D64.9 Anemia, unspecified; I12.9 Hypertensive chronic kidney disease with stage 1 through stage 4 chronic kidney disease, or unspecified chronic kidney disease; Z86.718 Personal history of other venous thrombosis and embolism; Z79.01 Long term (current) use of anticoagulants; Z87.19 Personal history of other diseases of the digestive system; Z87.448 Personal history of other diseases of urinary system; Z79.82 Long term (current) use of aspirin; Z79.899 Other long term (current) drug therapy; Z79.51 Long term (current) use of inhaled steroids; F41.9 Anxiety disorder, unspecified; F32.A Depression, unspecified; Z90.49 Acquired absence of other specified parts of digestive tract; F17.210 Nicotine dependence, cigarettes, uncomplicated
CPT/HCPCS: 71045; 80053; 81001; 83605; 85025; 85610; 85730; 87040; 87086; 87631; 93005; 96360; 96361; 99284; J7030

== ENCOUNTER 2024-01-06 13:00 | Outpatient (RCR) | payer MEDICARE, SELFPAY ==
[2023-12-18 00:14] VITALS: BP 96/50; PULSE 77; RESP 20; TEMP 36.8; BMI 23.6
[2023-12-23 16:18] VITALS: BP 111/64; PULSE 90; RESP 18; TEMP 36.9; BMI 23.6
[2023-12-30 13:03] VITALS: BP 125/58; PULSE 92; RESP 18; TEMP 36.4; BMI 23.6
--- NOTE | 2023-12-30 13:29 | PN.PCM_ITS ---
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 Patient's wound is stable and improving. Progress of Wound: Patient is left lateral foot wound is improving. He has been doing a snap VAC negative pressure applications with improvement in her home health care dressing changes. Working with physical therapy at home. Doing well. Still continues to smoke. Overall grateful for his care. Denies trauma. Denies constitutional symptoms. Other pedal complaints at this time. Subjective Subjective Mr. Oliva is a 73-year-old male presenting to the wound care center today follow-up evaluation of left foot full-thickness ulceration. Patient has been compliant with dressing changes. He states that he noticed improvement to the lateral left foot wound as well as healing of the great toe to the left foot. He is working with home health care for physical therapy and dressing changes. He is grateful for his care. He has admits that he smokes approximately 3 to 6 cigarettes/day which is an improvement. He denies any trauma. Denies constitutional symptoms. No other pedal complaints at this time. Objective Data Objective Data Vital Signs: Vital Signs Temp Pulse Resp BP O2 Del Method O2 Flow Rate 97.6 F L 92 18 125/58 H Nasal Cannula 3 12/30/23 13:03 12/30/23 13:03 12/30/23 13:03 12/30/23 13:03 12/30/23 13:03 12/18/23 00:14 Oxygen Flow Rate (L/min) 3 Oxygen Delivery Method Nasal Cannula Weight: 72.575 kg Body Mass Index (BMI) 23.6 Physical Exam Narrative Vascular: PT, peroneal arteries are biphasic on Doppler. AT and DP are monophasic on Doppler. CFT is 3 seconds. Nonpitting edema appreciated to the left lower extremity. Skin temperature gradient is warm to cool from proximal ankle to distal digits bilateral. Neurological: Light touch intact. Protective sensation is intact. Patient response to painful stimuli. Dermatological: Full-thickness ulceration to left lateral foot measuring 1.0 x 0.6 x 0.2 cm. Wound base is granular nature. No drainage. No sign of infection. Left hallux ulceration is now healed stable with no sign of infect ion. Excisional debridement down to including subcutaneous tissue, fascia and muscle to the left lateral full-thickness ulceration with a number 3 mm dermal curette without incident. Predebridement measurement was 0.8 x 0.4 x 0.1 cm. Postdebridement measurement is 1.0 x 0.6 x 0.2 cm. Musculoskeletal: No pain on palpation to full-thickness wound to the left lateral foot. No pain with calf pression. Debridement Note Debridement Note Debridement Free Text: Excisional debridement down to including subcutaneous tissue, fascia and muscle to the left lateral full-thickness ulceration with a number 3 mm dermal curette without incident. Predebridement measurement was 0.8 x 0.4 x 0.1 cm. Postdebridement measurement is 1.0 x 0.6 x 0.2 cm. Post-Debridement Measurements and Additional Note: Post-Debridement Measurements/Treatment WC - Nurse 1 - General Ulcer Assessment Start: 12/23/23 16:18 Freq: Status: Active Protocol: [email or web address] Activity Type Activity Date Activity User E-sign Co-sign Detail Recorded Client Recorded Date Recorded By Document 12/23/23 16:18 DL [id number] 12/23/23 16:23 DL Document 12/30/23 13:03 KW [id number] 12/30/23 13:15 KW 12/23/23 12/30/23 16:18 13:03 - Today's Visit Information Type of service Nurse-only Follow-up Visit Visit (Physician/RADIOLOGY PRACTITIONER ASSISTANT ) Arrival Mode Ambulatory, Ambulatory Wheelchair Transfer Assistance None Accompanied by Patient Identification Verified (Name & Yes Yes ) Patient Requires Transmission-Based No Precautions Height and Weight Body Mass Index (BMI) 23.6 23.6 BMI Classification Normal Normal Vital Signs Temperature (97.8 F-99.1 F) 98.4 F 97.6 F L Temperature Source Temporal Temporal Pulse Rate (60-100) 90 92 Pulse Location Monitor Monitor Respiratory Rate (12-18) 18 18 Respiratory rate source Observation Observation Oxygen Delivery Method Nasal Cannula Blood Pressure (90/60-120/80) 111/64 125/58 H Blood Pressure Mean (mm Hg) 79 80 Source Monitor Monitor Position Semi-Fowlers Blood Pressure Location Left Forearm History Since Last Visit- (Skip if this is Patient's initial visit) Have you changed medications since your No No last visit? Any new allergies or adverse reactions No No Had a fall/change in ADL's that may No No increase risk of falls Signs or symptoms of abuse and/or No No neglect since last visit Have you been in the hospital since your No No last visit? Has dressing in place as prescribed Yes Yes Has compression in place as prescribed Yes Yes Has offloadiing in place as prescribed Yes Yes Experienced any changes in pain level or No No management Left Footwear Surgical Shoe with pressure relief insole Right Footwear Regular Shoe Pain Scale: 0-10 Numeric Is Patient Pain Free? Yes Yes WC - Nurse 1 - General Ulcer Measurement Start: 12/23/23 16:18 Freq: Status: Active Protocol: Activity Type Activity Date Activity User E-sign Co-sign Detail Recorded Client Recorded Date Recorded By Document 12/23/23 16:18 DL [id number] 12/23/23 16:23 DL Document 12/30/23 13:03 KW [id number] 12/30/23 13:15 KW 12/23/23 12/30/23 16:18 13:03 Wound Center Nurse 1 #3 LT HALLUX -Current Size (cm) - Length 0.1 -Current Size (cm) - Width 0.1 -Current Size (cm) - Depth 0.1 -Total Square Cm 0.01 -Exudate Amt None Present -Texture (Terri-wound Skin Appearance) Assessed -Moisture (Terri-wound Skin Appearance) Assessed -Color (Terri-wound Skin Appearance) Assessed -Temperature (Terri-wound Skin No Abnormality Appearance) (Pt Warm) -Tenderness on Palpation (Terri-wound No Skin Appearance) -Ulcer Cleansing Soap and Water -Foul Odor after Cleansing No 1. L Lateral foot POST-OP -Current Size (cm) - Length 0.9 -Current Size (cm) - Width 0.7 -Current Size (cm) - Depth 0.4 -Total Square Cm 0.63 -Exudate Amt Medium Large -Exudate Type Serosanguineous Serosanguineous -Wound Margin Distinct, Distinct, Outline Outline Attached Attached -Granulation Amt Small (1-33%) Large (67-100%) -Granulation Quality Pale,[place] -Necrosis Amt Small (1-33%) -Necrotic Tissue Type Adherent Slough -Structure Exposed N/A -Texture (Terri-wound Skin Appearance) Scarring Assessed -Moisture (Terri-wound Skin Appearance) Maceration Assessed, Maceration -Color (Terri-wound Skin Appearance) No Abnormality Assessed -Temperature (Terri-wound Skin No Abnormality Appearance) (Pt Warm) -Tenderness on Palpation (Terri-wound No Skin Appearance) -Ulcer Cleansing Soap and Water Soap and Water -Foul Odor after Cleansing No No -Anesthetic Used 5% Lidocaine Gel WC - Nurse 2 - General Ulcer CM Notes Start: 12/23/23 16:18 Freq: Status: Active Protocol: Activity Type Activity Date Activity User E-sign Co-sign Detail Recorded Client Recorded Date Recorded By Document 12/30/23 13:20 SHELLIE [id number] 12/30/23 13:22 SHELLIE 12/30/23 13:20 Wound Center Nurse 2 #3 LT HALLUX -Correct Patient No -Correct Side, Site, Position No -Correct Procedure No -Procedure Performed No -Post Debridement (cm) - Length 0 -Post Debridement (cm) - Width 0 -Post Debridement (cm) - Depth 0 -Total Square (Post) (cm) 0 -Area of Debridement (cm) - Length 0 -Area of Debridement (cm) - Width 0 -Total Square (Area) (cm) 0 -Wound/Ulcer Outcome Healed- Epithelialized 1. L Lateral foot POST-OP -Time 13:21 -Correct Patient Yes -Correct Side, Site, Position Yes -Correct Procedure Yes -Procedure Performed Yes -Type of Procedure Debridement -Clinical Debridement Muscle / Fascia -Tissue Removed Muscle -Post Debridement (cm) - Length 1.0 -Post Debridement (cm) - Width 0.6 -Post Debridement (cm) - Depth 0.2 -Total Square (Post) (cm) 0.60 -Area of Debridement (cm) - Length 1.0 -Area of Debridement (cm) - Width 0.6 -Total Square (Area) (cm) 0.60 -Tunneling No -Undermining/Tunneling No -Circular Undermining No -Wound/Ulcer Outcome Not Healed -Ulcer Cleansing Rinsed/ Irrigated with Saline -Foul Odor after Cleansing No -Bioengineered Tissue No -Bleeding Controlled with Pressure -Treatment Response Procedure Tolerated Well -Offloading Yes -Type of Offloading Surgical Shoe -Debridement - Muscle / Fascia, 1st Yes 20sq cm Pain Scale: 0-10 Numeric Is Patient Pain Free? Yes BRUCE - Nurse 3 - General Ulcer D/C NN Start: 12/23/23 16:18 Freq: Status: Active Protocol: Activity Type Activity Date Activity User E-sign Co-sign Detail Recorded Client Recorded Date Recorded By Document 12/23/23 16:18 DL [id number] 12/23/23 16:23 DL Edit Result 12/23/23 16:18 DL (1) [id number] 12/24/23 13:26 DL (1) 1. L Lateral foot POST-OP - NPWT Application Charge NPWT </= 50 sq cm => NPWT </= 50 sq cm ($) => (disp) ($) 12/23/23 16:18 Vital Signs Temperature (97.8 F-99.1 F) 98.4 F Temperature Source Temporal Pulse Rate (60-100) 90 Pulse Location Monitor Respiratory Rate (12-18) 18 Respiratory rate source Observation Blood Pressure (90/60-120/80) 111/64 Blood Pressure Mean (mm Hg) 79 Source Monitor Pain Scale: 0-10 Numeric Is Patient Pain Free? Yes Wound Care Center Nurse 3 #3 LT HALLUX -Ulcer Cleansing Soap and Water -Foul Odor after Cleansing No -Other Dressing betadine -Primary Dressing Covered/Secured with Dry Gauze, Secured with Tape 1. L Lateral foot POST-OP -Ulcer Cleansing Soap and Water -Foul Odor after Cleansing No -Negative Pressure Wound Therapy Continue -Setting (mmHg) 125 -Negative Pressure is Continuous -Other Dressing SNAP VAC -Other Covering THAD -NPWT Application Charge NPWT </= 50 sq cm (disp) ($) Treatment Response Procedure Tolerated Well WC - Visit Discharge Discharge Condition Stable Ambulatory Status Wheelchair Transportation Private Auto Facility Type Home Health Orders Sent Yes Assessment/Plan Assessment/Plan (1) Non-pressure chronic ulcer of other part of left foot with necrosis of muscle: CODE(S): L97.523 - Non-pressure chronic ulcer of other part of left foot with necrosis of muscle PLAN: Patient was examined and evaluated. All findings were discussed with the patient. All questions were answered to the patient's satisfaction. Excisional debridement down to including subcutaneous tissue, fascia and muscle to the left lateral full-thickness ulceration with a number 3 mm dermal curette without incident. Predebridement measurement was 0.8 x 0.4 x 0.1 cm. Postdebridement measurement is 1.0 x 0.6 x 0.2 cm. Left lower extremities are clean and patted dry. Will stop the wound VAC at this time. We will transfer her to moist Anika that would be applied every other day covered with a Band- Aid and an Thad wrap will be applied from sulcus of toes to mid calf. Patient has home health care and will be providing dressing changes and physical therapy. Educated the patient on smoking cessation. Follow-up at the wound care center with Dr. Guaman in 1 week.
[2024-01-06 13:17] VITALS: BP 112/91; PULSE 119; RESP 16; TEMP 36; BMI 23.6
--- NOTE | 2024-01-06 13:49 | PN.PCM_ITS ---
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 Patient's wound is stable and improving. Progress of Wound: Patient is left lateral foot wound is improving. He has been doing a snap VAC negative pressure applications with improvement in her home health care dressing changes. Working with physical therapy at home. Doing well. Still continues to smoke. Overall grateful for his care. Denies trauma. Denies constitutional symptoms. Other pedal complaints at this time. Subjective Subjective Mr. Oliva is a 73-year-old male presenting to wound care center today for follow-up evaluation of lateral left foot ulceration. He has been doing dressing changes with home health care. He admits improvement to his wound. Patient was recently seen in the emergency department due to elevated laboratory values secondary to referral from his [facility] physician. Patient declined to be admitted for further evaluation. He admits that he is not feeling his best. He denies any trauma to the bilateral lower extremity. Denies constitutional symptoms. No other pedal complaints at this time. Objective Data Objective Data Vital Signs: Vital Signs Temp Pulse Resp BP O2 Del Method O2 Flow Rate 96.8 F L 119 H 16 112/91 H Room Air 3 01/06/24 13:17 01/06/24 13:17 01/06/24 13:17 01/06/24 13:17 01/06/24 13:17 12/18/23 00:14 Oxygen Flow Rate (L/min) 3 Oxygen Delivery Method Room Air Weight: 72.575 kg Body Mass Index (BMI) 23.6 Physical Exam Narrative Neurovascular status unchanged. Dermatological: Full-thickness ulceration to left lateral foot measuring 1.0 x 0.4 x 0.3 cm. Wound base is granular nature. No drainage. No sign of infection. Excisional debridement down to including subcutaneous tissue, fascia and muscle to the left lateral full-thickness ulceration with a number 3 mm dermal curette without incident. Predebridement measurement was 0.7 x 0.2 x 0.2 cm. Postdebridement measurement is 1.0 x 0.4 x 0.3 cm. Musculoskeletal: No pain on palpation to full-thickness wound to the left lateral foot. No pain with calf pression. Debridement Note Debridement Note Debridement Free Text: Excisional debridement down to including subcutaneous tissue, fascia and muscle to the left lateral full-thickness ulceration with a number 3 mm dermal curette without incident. Predebridement measurement was 0.7 x 0.2 x 0.2 cm. Postdebridement measurement is 1.0 x 0.4 x 0.3 cm. Post-Debridement Measurements and Additional Note: Post-Debridement Measurements/Treatment WC - Nurse 1 - General Ulcer Assessment Start: 12/23/23 16:18 Freq: Status: Active Protocol: CARLOS Activity Type Activity Date Activity User E-sign Co-sign Detail Recorded Client Recorded Date Recorded By Document 12/23/23 16:18 DL [id number] 12/23/23 16:23 DL Document 12/30/23 13:03 KW [id number] 12/30/23 13:15 KW Document 01/06/24 13:17 BMF [id number] 01/06/24 13:21 BMF 12/23/23 12/30/23 01/06/24 16:18 13:03 13:17 - Today's Visit Information Type of service Nurse-only Follow-up Visit Follow-up Visit Visit (Physician/QUALITY ASSURANCE REPRESENTATIVE (Physician/QUALITY ASSURANCE REPRESENTATIVE ) ) Arrival Mode Ambulatory, Ambulatory Wheelchair Wheelchair Transfer Assistance None Other Transfer Assist (Other) 1 Accompanied by Patient Identification Verified (Name & Yes Yes Yes ) Patient Requires Transmission-Based No Precautions Height and Weight Body Mass Index (BMI) 23.6 23.6 23.6 BMI Classification Normal Normal Normal Vital Signs Temperature (97.8 F-99.1 F) 98.4 F 97.6 F L 96.8 F L Temperature Source Temporal Temporal Temporal Pulse Rate (60-100) 90 92 119 H Pulse Location Monitor Monitor Monitor Respiratory Rate (12-18) 18 18 16 Respiratory rate source Observation Observation Observation Oxygen Delivery Method Nasal Cannula Room Air Blood Pressure (90/60-120/80) 111/64 125/58 H 112/91 H Blood Pressure Mean (mm Hg) 79 80 98 Source Monitor Monitor Monitor Position Semi-Fowlers Sitting Blood Pressure Location Left Forearm Left Arm History Since Last Visit- (Skip if this is Patient's initial visit) Have you changed medications since your No No No last visit? Any new allergies or adverse reactions No No No Had a fall/change in ADL's that may No No No increase risk of falls Signs or symptoms of abuse and/or No No No neglect since last visit Have you been in the hospital since your No No No last visit? Has dressing in place as prescribed Yes Yes Yes Has compression in place as prescribed Yes Yes N/A Has offloadiing in place as prescribed Yes Yes Yes Experienced any changes in pain level or No No No management Left Footwear Surgical Shoe Surgical Shoe with pressure with pressure relief insole relief insole Right Footwear Regular Shoe Regular Shoe Pain Scale: 0-10 Numeric Is Patient Pain Free? Yes Yes Yes WC - Nurse 1 - General Ulcer Measurement Start: 12/23/23 16:18 Freq: Status: Active Protocol: Activity Type Activity Date Activity User E-sign Co-sign Detail Recorded Client Recorded Date Recorded By Document 12/23/23 16:18 DL [id number] 12/23/23 16:23 DL Document 12/30/23 13:03 KW [id number] 12/30/23 13:15 KW Document 01/06/24 13:17 BM [id number] 01/06/24 13:21 BM 12/23/23 12/30/23 01/06/24 16:18 13:03 13:17 Wound Center Nurse 1 #3 LT HALLUX -Current Size (cm) - Length 0.1 -Current Size (cm) - Width 0.1 -Current Size (cm) - Depth 0.1 -Total Square Cm 0.01 -Exudate Amt None Present -Texture (Terri-wound Skin Appearance) Assessed -Moisture (Terri-wound Skin Appearance) Assessed -Color (Terri-wound Skin Appearance) Assessed -Temperature (Terri-wound Skin No Abnormality Appearance) (Pt Warm) -Tenderness on Palpation (Terri-wound No Skin Appearance) -Ulcer Cleansing Soap and Water -Foul Odor after Cleansing No 1. L Lateral foot POST-OP -Combined with other wound No -Current Size (cm) - Length 0.9 0.4 -Current Size (cm) - Width 0.7 1.2 -Current Size (cm) - Depth 0.4 0.1 -Total Square Cm 0.63 0.48 -Tunneling No -Undermining/Tunneling No -Circular Undermining No -Exudate Amt Medium Large Medium -Exudate Type Serosanguineous Serosanguineous Serosanguineous -Wound Margin Distinct, Distinct, Distinct, Outline Outline Outline Attached Attached Attached -Granulation Amt Small (1-33%) Large (67-100%) None Present (0 %) -Granulation Quality Pale,[place] -Slough/Fibrin Yes -Necrosis Amt Small (1-33%) Large (67-100%) -Necrotic Tissue Type Adherent Slough Eschar -Structure Exposed N/A -Texture (Terri-wound Skin Appearance) Scarring Assessed Assessed, Scarring -Moisture (Terri-wound Skin Appearance) Maceration Assessed, Assessed,Dry/ Maceration Scaly -Color (Terri-wound Skin Appearance) No Abnormality Assessed Assessed -Temperature (Terri-wound Skin No Abnormality No Abnormality Appearance) (Pt Warm) (Pt Warm) -Tenderness on Palpation (Terri-wound No No Skin Appearance) -Ulcer Cleansing Soap and Water Soap and Water Rinsed/ Irrigated with Saline -Foul Odor after Cleansing No No No -Anesthetic Used 5% Lidocaine 5% Lidocaine Gel Gel Left Calf (cm) 26.2 Left Ankle (cm) 19 WC - Nurse 2 - General Ulcer CM Notes Start: 12/23/23 16:18 Freq: Status: Active Protocol: Activity Type Activity Date Activity User E-sign Co-sign Detail Recorded Client Recorded Date Recorded By Document 12/30/23 13:20 [id number] 12/30/23 13:22 Document 01/06/24 13:28 [id number] 01/06/24 13:31 12/30/23 01/06/24 13:20 13:28 Wound Center Nurse 2 #3 LT HALLUX -Correct Patient No -Correct Side, Site, Position No -Correct Procedure No -Procedure Performed No -Post Debridement (cm) - Length 0 -Post Debridement (cm) - Width 0 -Post Debridement (cm) - Depth 0 -Total Square (Post) (cm) 0 -Area of Debridement (cm) - Length 0 -Area of Debridement (cm) - Width 0 -Total Square (Area) (cm) 0 -Wound/Ulcer Outcome Healed- Epithelialized 1. L Lateral foot POST-OP -Time 13:21 13:29 -Correct Patient Yes Yes -Correct Side, Site, Position Yes Yes -Correct Procedure Yes Yes -Procedure Performed Yes Yes -Type of Procedure Debridement Debridement -Clinical Debridement Muscle / Fascia Subcutaneous -Tissue Removed Muscle Subcutaneous -Post Debridement (cm) - Length 1.0 1.0 -Post Debridement (cm) - Width 0.6 0.4 -Post Debridement (cm) - Depth 0.2 0.3 -Total Square (Post) (cm) 0.60 0.40 -Area of Debridement (cm) - Length 1.0 1.0 -Area of Debridement (cm) - Width 0.6 0.4 -Total Square (Area) (cm) 0.60 0.40 -Tunneling No No -Undermining/Tunneling No No -Circular Undermining No No -Wound/Ulcer Outcome Not Healed Not Healed -Ulcer Cleansing Rinsed/ Rinsed/ Irrigated with Irrigated with Saline Saline -Foul Odor after Cleansing No No -Bioengineered Tissue No No -Bleeding Controlled with Pressure Pressure -Treatment Response Procedure Procedure Tolerated Well Tolerated Well -Offloading Yes Yes -Type of Offloading Surgical Shoe Surgical Shoe -Debridement - Subq, 1st 20sq cm Yes -Debridement - Muscle / Fascia, 1st Yes 20sq cm Pain Scale: 0-10 Numeric Is Patient Pain Free? Yes Yes WC - Nurse 3 - General Ulcer D/C NN Start: 12/23/23 16:18 Freq: Status: Active Protocol: Activity Type Activity Date Activity User E-sign Co-sign Detail Recorded Client Recorded Date Recorded By Document 12/23/23 16:18 DL [id number] 12/23/23 16:23 DL Edit Result 12/23/23 16:18 DL (1) [id number] 12/24/23 13:26 DL Document 12/30/23 13:37 KW [id number] 12/30/23 13:37 KW Document 01/06/24 13:40 KW [id number] 01/06/24 13:41 KW (1) 1. L Lateral foot POST-OP - NPWT Application Charge NPWT </= 50 sq cm => NPWT </= 50 sq cm ($) => (disp) ($) 12/23/23 12/30/23 01/06/24 16:18 13:37 13:40 Vital Signs Temperature (97.8 F-99.1 F) 98.4 F Temperature Source Temporal Pulse Rate (60-100) 90 Pulse Location Monitor Respiratory Rate (12-18) 18 Respiratory rate source Observation Blood Pressure (90/60-120/80) 111/64 Blood Pressure Mean (mm Hg) 79 Source Monitor Pain Scale: 0-10 Numeric Is Patient Pain Free? Yes Yes Yes Wound Care Center Nurse 3 #3 LT HALLUX -Ulcer Cleansing Soap and Water -Foul Odor after Cleansing No -Other Dressing betadine -Primary Dressing Covered/Secured with Dry Gauze, Secured with Tape 1. L Lateral foot POST-OP -Ulcer Cleansing Soap and Water -Foul Odor after Cleansing No -Negative Pressure Wound Therapy Continue -Setting (mmHg) 125 -Negative Pressure is Continuous -Primary Dressing Applied Promogran Promogran Anika Matter Anika Matter -Other Dressing SNAP VAC -Primary Dressing Covered/Secured with Dry Gauze & Dry Gauze & Roll Gauze, Roll Gauze, Secured with Secured with Tape Tape -Other Covering HUGO -NPWT Application Charge NPWT </= 50 sq cm (disp) ($) -Promogran Anika Matter 1 1 Left -Tubular Bandage Single Layer Single Layer -Size of Tubigrip Used Size D Size D -Size D ($) 1 1 Treatment Response Procedure Tolerated Well WC - Visit Discharge Discharge Condition Stable Ambulatory Status Wheelchair Transportation Private Auto Facility Type Home Health Orders Sent Yes Assessment/Plan Assessment/Plan (1) Non-pressure chronic ulcer of other part of left foot with fat layer exposed: CODE(S): L97.522 - Non-pressure chronic ulcer of other part of left foot with fat layer exposed PLAN: Patient was examined and evaluated. All findings were discussed with the patient. All questions were answered to the patient's satisfaction. Excisional debridement down to including subcutaneous tissue, fascia and muscle to the left lateral full-thickness ulceration with a number 3 mm dermal curette without incident. Predebridement measurement was 0.7 x 0.2 x 0.2 cm. Postdebridement measurement is 1.0 x 0.4 x 0.3 cm. Left lower extremities were cleaned and patted dry. Moist present was applied to the full-thickness ulceration to the lateral left foot followed by Adaptic dry sterile dressing and Tubigrip. Patient will continue every other day dressing changes as discussed. After discussion with the patient and why he was told by his primary doctor from [place] to present to the emergency room for evaluation at [place], I agree with the primary physician from [place] for the patient to return to the emergency room for possible admission evaluation for concerns of elevated WBC, elevated creatinine, decreased liver enzymes to be evaluated for possible GI bleed or worsening viral/bacterial infection. At this time the patient states that he will be returning home but after further discussion with the patient patient will think about it and will present to the emergency room at [facility] if he feels it is necessary. Follow-up at the wound care center with Dr. Guaman in 2 week.
--- NOTE | 2024-01-11 12:12 | WC ---
HOME HEALTH NURSE ALFONSO CALLED FROM [facility] TO REPORT PT RT LAT FT APPEARS TO HAVE A NEW AREA OPENING UP. CURRENTLY SHE IS PAD AND PROTECTING THE AREA AND THE PT HAD STARTED TO WEAR NEW SHOES.
== END 2024-01-16 23:59 | disposition home or self-care (01) ==
LOC: WC 13:00
PROVIDERS: PCP Family Medicine; Referring Provider Podiatrist Foot & Ankle Surgery; Visit Provider Podiatrist Foot & Ankle Surgery
DX: L97.522 Non-pressure chronic ulcer of other part of left foot with fat layer exposed (principal); M86.8X7 Other osteomyelitis, ankle and foot; F17.210 Nicotine dependence, cigarettes, uncomplicated; Z79.01 Long term (current) use of anticoagulants; Z79.82 Long term (current) use of aspirin; Z79.899 Other long term (current) drug therapy
CPT/HCPCS: 11042; 11043; 97605; 97607

== ENCOUNTER 2024-02-09 11:15 | Outpatient (RCR) | payer MEDICARE, SELFPAY ==
[2024-01-17 00:14] VITALS: BP 96/50; PULSE 77; RESP 20; TEMP 36.8; BMI 23.6
[2024-01-20 13:01] VITALS: BP 122/72; PULSE 104; RESP 22; TEMP 37.1; BMI 23.6
--- NOTE | 2024-01-20 14:48 | PN.PCM_ITS ---
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 Patient's wound is stable and improving. Subjective Subjective Mr. Oliva is a 73-year-old male presenting the wound care center today follow- up evaluation of full-thickness wound to lateral left foot. Patient states that he is having pain to the right foot. Patient also admits to cutting his own nails on the left foot third digit cutting his toe and having it bleed. He states that his toe on the left foot is discolored and painful. He has been compliant with dressing changes with home health care. Denies constitutional symptoms. No other pedal complaints at this time. Objective Data Objective Data Vital Signs: Vital Signs Temp Pulse Resp BP O2 Flow Rate 98.7 F 104 H 22 H 122/72 H 3 01/20/24 13:01 01/20/24 13:01 01/20/24 13:01 01/20/24 13:01 01/17/24 00:14 Oxygen Flow Rate (L/min) 3 Weight: 72.575 kg Body Mass Index (BMI) 23.6 Physical Exam Narrative Vascular: Neurovascular status is unchanged. CFT is brisk. Nonpitting edema appreciated to the bilateral lower extremity. Skin temp great is warm to cool from proximal ankles to distal digits bilateral. Neurological: Light touch intact. Protective sensation is intact. Patient response to painful stimuli. Dermatological: Full-thickness ulceration to left lateral foot measuring 1.0 x 0.6 x 0.5 cm. Wound base is granular nature. No drainage. No sign of infection. Evidence of dry eschar appreciated to the distal tip of the left third digit secondary to injury. Evidence of callus to the lateral aspect of the styloid process of the right foot. Excisional debridement down to including subcutaneous tissue, fascia and muscle to the left lateral full-thickness ulceration with a number 3 mm dermal curette without incident. Predebridement measurement was sanguinous crust. Postdebridement measurement is 1.0 x 0.6 x 0.5 cm. Musculoskeletal: No pain on palpation to full-thickness wound to the left lateral foot. No pain with calf pression. Debridement Note Debridement Note Debridement Free Text: Excisional debridement down to including subcutaneous tissue, fascia and muscle to the left lateral full-thickness ulceration with a number 3 mm dermal curette without incident. Predebridement measurement was sanguinous crust. Postdebridement measurement is 1.0 x 0.6 x 0.5 cm. Post-Debridement Measurements and Additional Note: Post-Debridement Measurements/Treatment - Nurse 1 - General Ulcer Assessment Start: 01/20/24 13:01 Freq: Status: Active Protocol: CARLOS Activity Type Activity Date Activity User E-sign Co-sign Detail Recorded Client Recorded Date Recorded By Document 01/20/24 13:01 ML [id number] 01/20/24 13:14 ML 01/20/24 13:01 WC - Today's Visit Information Type of service Follow-up Visit (Physician/TOP STOP ATTACHER ) Arrival Mode Wheelchair Transfer Assistance None Patient Identification Verified (Name & Yes ) Patient Requires Transmission-Based No Precautions Height and Weight Body Mass Index (BMI) 23.6 BMI Classification Normal Vital Signs Temperature (97.8 F-99.1 F) 98.7 F Temperature Source Temporal Pulse Rate (60-100) 104 H Pulse Location Monitor Respiratory Rate (12-18) 22 H Respiratory rate source Observation Blood Pressure (90/60-120/80) 122/72 H Blood Pressure Mean (mm Hg) 88 Source Monitor Position Sitting Blood Pressure Location Left Arm History Since Last Visit- (Skip if this is Patient's initial visit) Have you changed medications since your No last visit? Any new allergies or adverse reactions No Had a fall/change in ADL's that may No increase risk of falls Signs or symptoms of abuse and/or No neglect since last visit Have you been in the hospital since your No last visit? Has dressing in place as prescribed Yes Has compression in place as prescribed N/A Has offloadiing in place as prescribed N/A Experienced any changes in pain level or No management Pain Scale: 0-10 Numeric Is Patient Pain Free? Yes - Nurse 1 - General Ulcer Measurement Start: 01/20/24 13:01 Freq: Status: Active Protocol: Activity Type Activity Date Activity User E-sign Co-sign Detail Recorded Client Recorded Date Recorded By Document 01/20/24 13:01 ML [id number] 01/20/24 13:14 ML 01/20/24 13:01 Wound Center Nurse 1 1. left Lateral foot POST-OP -Current Size (cm) - Length 1.5 -Current Size (cm) - Width 0.5 -Current Size (cm) - Depth 0.1 -Total Square Cm 0.75 -Exudate Amt Medium -Exudate Type Serosanguineous -Wound Margin Distinct, Outline Attached -Granulation Amt Medium (34-66%) -Slough/Fibrin Yes -Necrosis Amt Medium (34-66%) -Necrotic Tissue Type Adherent Slough -Texture (Terri-wound Skin Appearance) Assessed -Moisture (Terri-wound Skin Appearance) Assessed -Color (Terri-wound Skin Appearance) Assessed -Temperature (Terri-wound Skin No Abnormality Appearance) (Pt Warm) -Tenderness on Palpation (Terri-wound Yes Skin Appearance) -Ulcer Cleansing Soap and Water -Foul Odor after Cleansing No -Anesthetic Used 5% Lidocaine Gel WC - Nurse 2 - General Ulcer CM Notes Start: 01/20/24 13:01 Freq: Status: Active Protocol: Activity Type Activity Date Activity User E-sign Co-sign Detail Recorded Client Recorded Date Recorded By Document 01/20/24 13:34 SHELLIE [id number] 01/20/24 13:43 SHELLIE 01/20/24 13:34 Wound Center Nurse 2 #4 right lateral foot -Time 13:37 -Correct Patient Yes -Correct Side, Site, Position Yes -Correct Procedure Yes -Procedure Performed Yes -Type of Procedure Debridement -Clinical Debridement Subcutaneous -Tissue Removed Subcutaneous -Tunneling No -Undermining/Tunneling No -Circular Undermining No -Wound/Ulcer Outcome Not Healed -Ulcer Cleansing Rinsed/ Irrigated with Saline -Foul Odor after Cleansing No -Bioengineered Tissue No -Bleeding Controlled with Pressure -Treatment Response Procedure Tolerated Well -Offloading Yes -Type of Offloading Surgical Shoe -Debridement - Subq, 1st 20sq cm No 1. left Lateral foot POST-OP -Time 13:36 -Correct Patient Yes -Correct Side, Site, Position Yes -Correct Procedure Yes -Procedure Performed Yes -Type of Procedure Debridement -Clinical Debridement Muscle / Fascia -Tissue Removed Tendon -Post Debridement (cm) - Length 1.0 -Post Debridement (cm) - Width 0.6 -Post Debridement (cm) - Depth 0.5 -Total Square (Post) (cm) 0.60 -Area of Debridement (cm) - Length 1.0 -Area of Debridement (cm) - Width 0.6 -Total Square (Area) (cm) 0.60 -Tunneling No -Undermining/Tunneling No -Circular Undermining No -Wound/Ulcer Outcome Not Healed -Ulcer Cleansing Rinsed/ Irrigated with Saline -Foul Odor after Cleansing No -Bioengineered Tissue No -Bleeding Controlled with Pressure -Treatment Response Procedure Tolerated Well -Offloading Yes -Type of Offloading Surgical Shoe -Debridement - Muscle / Fascia, 1st Yes 20sq cm Pain Scale: 0-10 Numeric Is Patient Pain Free? Yes - Nurse 3 - General Ulcer D/C NN Start: 01/20/24 13:01 Freq: Status: Active Protocol: Activity Type Activity Date Activity User E-sign Co-sign Detail Recorded Client Recorded Date Recorded By Document 01/20/24 14:01 DL [id number] 01/20/24 14:03 DL 01/20/24 14:01 Wound Care Center Nurse 3 1. left Lateral foot POST-OP -Ulcer Cleansing Rinsed/ Irrigated with Saline -Primary Dressing Applied Promogran Anika Matter -Primary Dressing Covered/Secured with Dry Gauze & Roll Gauze, Secured with Tape -Promogran Anika Matter 1 -Wound Comment(s) Betadine to [place] on R Lat foot. L 3rd toe , gauze only. Left -Tubular Bandage Single Layer -Size of Tubigrip Used Size D -Size D ($) 1 Treatment Response Procedure Tolerated Well Pain Scale: 0-10 Numeric Is Patient Pain Free? Yes - Visit Discharge Discharge Condition Stable Ambulatory Status Wheelchair Transportation Private Auto Assessment/Plan Assessment/Plan (1) Non-pressure chronic ulcer of other part of left foot with necrosis of muscle: CODE(S): L97.523 - Non-pressure chronic ulcer of other part of left foot with necrosis of muscle PLAN: Patient was examined and evaluated. All findings were discussed with the patient. All questions were answered to the patient's satisfaction. Excisional debridement down to including subcutaneous tissue, fascia and muscle to the left lateral full-thickness ulceration with a number 3 mm dermal curette without incident. Predebridement measurement was sanguinous crust. Postdebridement measurement is 1.0 x 0.6 x 0.5 cm. Left lower extremity are clean and patted dry. Moist Anika followed by dry sterile dressing and Tubigrip were donned to the left lower extremity. Betadine paint and dry sterile dressing was applied to the left third digit. I did discuss with the patient that due to his decreased vascular flow to the digits he is at risk for amputation to the digit if things are not improved. He was understanding this. Betadine paint was applied to the styloid process of the right foot and followed by sterile Band-Aid. After discussion with the patient and the delayed healing of the full-thickness wound to the left foot will make recommendations for the patient to follow-up w [facility] vascular surgery for consultation and possible intervention due to his delayed left foot healing. The patient's past vascular studies on 06/08/2023 were left lower extremity ABIs were 1.37, and right lower extremity ABIs were 0.94. Follow-up at the wound care center with Dr. Guaman in 1 week. (2) Gangrene, not elsewhere classified: CODE(S): I96 - Gangrene, not elsewhere classified (3) Other specified peripheral vascular diseases: CODE(S): I73.89 - Other specified peripheral vascular diseases
[2024-01-27 12:48] VITALS: BP 128/54; PULSE 120; RESP 18; TEMP 36.7; BMI 23.6
--- NOTE | 2024-01-27 14:39 | PCM.WC.PN ---
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 Patient's wound is stable and improving. Subjective Subjective Mr. Oliva is a 73-year-old male presented wound care center today follow-up and evaluation of the left lower extremity foot. Patient states that he has noticed darkening to the third digit on the left foot and has been following dressing changes to the left lateral full-thickness ulceration. He admits to some pain to the right foot but improving. He denies trauma. Denies constitutional symptoms. No other pedal complaints at this time. Objective Data Objective Data Vital Signs: Vital Signs Temp Pulse Resp BP O2 Del Method O2 Flow Rate 98.0 F 120 H 18 128/54 H Nasal Cannula 3 01/27/24 12:48 01/27/24 12:48 01/27/24 12:48 01/27/24 12:48 01/27/24 12:48 01/17/24 00:14 Oxygen Flow Rate (L/min) 3 Oxygen Delivery Method Nasal Cannula Weight: 72.575 kg Body Mass Index (BMI) 23.6 Physical Exam Narrative Vascular: Neurovascular status is unchanged. CFT is brisk. Nonpitting edema appreciated to the bilateral lower extremity. Skin temp great is warm to cool from proximal ankles to distal digits bilateral. Neurological: Light touch intact. Protective sensation is intact. Patient response to painful stimuli. Dermatological: Full-thickness ulceration to the lateral left foot measuring 0.8 x 0.4 x 0.3 cm. Wound base is fibrogranular nature. Evidence of dry gangrene to the left third digit stable. Evidence of callus appreciated to the lateral right foot. Excisional debridement down to including subcutaneous tissue, fascia and muscle to the left lateral full-thickness ulceration with a number 3 mm dermal curette without incident. Predebridement measurement was sanguinous crust. Postdebridement measurement is 0.8 x 0.4 x 0.3 cm. Musculoskeletal: No pain on palpation to full-thickness wound to the left lateral foot. Mild pain on palpation to the left third digit. Mild pain on palpation to the styloid process of the right foot. No pain with calf pression. Debridement Note Debridement Note Debridement Free Text: Excisional debridement down to including subcutaneous tissue, fascia and muscle to the left lateral full-thickness ulceration with a number 3 mm dermal curette without incident. Predebridement measurement was sanguinous crust. Postdebridement measurement is 0.8 x 0.4 x 0.3 cm. Post-Debridement Measurements and Additional Note: Post-Debridement Measurements/Treatment - Nurse 1 - General Ulcer Assessment Start: 01/20/24 13:01 Freq: Status: Active Protocol: BRUCE.LOWEXT Activity Type Activity Date Activity User E-sign Co-sign Detail Recorded Client Recorded Date Recorded By Document 01/20/24 13:01 ML [id number] 01/20/24 13:14 ML Document 01/27/24 12:48 JF [id number] 01/27/24 12:50 JF 01/20/24 01/27/24 13:01 12:48 - Today's Visit Information Type of service Follow-up Visit Follow-up Visit (Physician/SYSTEMS TRAINER (Physician/SYSTEMS TRAINER ) ) Arrival Mode Wheelchair Wheelchair Transfer Assistance None Patient Identification Verified (Name & Yes Yes ) Patient Requires Transmission-Based No Precautions Safety Precautions Fall Prevention Height and Weight Body Mass Index (BMI) 23.6 23.6 BMI Classification Normal Normal Vital Signs Temperature (97.8 F-99.1 F) 98.7 F 98.0 F Temperature Source Temporal Temporal Pulse Rate (60-100) 104 H 120 H Pulse Location Monitor Monitor Respiratory Rate (12-18) 22 H 18 Respiratory rate source Observation Observation Oxygen Delivery Method Nasal Cannula Blood Pressure (90/60-120/80) 122/72 H 128/54 H Blood Pressure Mean (mm Hg) 88 78 Source Monitor Monitor Position Sitting Sitting Blood Pressure Location Left Arm Right Forearm History Since Last Visit- (Skip if this is Patient's initial visit) Have you changed medications since your No No last visit? Any new allergies or adverse reactions No No Had a fall/change in ADL's that may No No increase risk of falls Signs or symptoms of abuse and/or No No neglect since last visit Have you been in the hospital since your No No last visit? Has dressing in place as prescribed Yes Yes Has compression in place as prescribed N/A Yes Has offloadiing in place as prescribed N/A Yes Experienced any changes in pain level or No No management Left Footwear Surgical Shoe with pressure relief insole Right Footwear Regular Shoe Pain Scale: 0-10 Numeric Is Patient Pain Free? Yes Yes - Nurse 1 - General Ulcer Measurement Start: 01/20/24 13:01 Freq: Status: Active Protocol: Activity Type Activity Date Activity User E-sign Co-sign Detail Recorded Client Recorded Date Recorded By Document 01/20/24 13:01 [id number] 01/20/24 13:14 Document 01/27/24 12:50 [id number] 01/27/24 12:57 01/20/24 01/27/24 13:01 12:50 Wound Center Nurse 1 1. left Lateral foot POST-OP -Current Size (cm) - Length 1.5 0.7 -Current Size (cm) - Width 0.5 0.8 -Current Size (cm) - Depth 0.1 0.1 -Total Square Cm 0.75 0.56 -Date of Last Picture (Recall this 01/27/24 field) -Photo Taken Yes -Tunneling No -Undermining/Tunneling No -Circular Undermining No -Exudate Amt Medium -Exudate Type Serosanguineous -Wound Margin Distinct, Outline Attached -Granulation Amt Medium (34-66%) -Slough/Fibrin Yes -Necrosis Amt Medium (34-66%) -Necrotic Tissue Type Adherent Slough -Texture (Terri-wound Skin Appearance) Assessed Assessed -Moisture (Terri-wound Skin Appearance) Assessed Assessed -Color (Terri-wound Skin Appearance) Assessed Assessed -Temperature (Terri-wound Skin No Abnormality No Abnormality Appearance) (Pt Warm) (Pt Warm) -Tenderness on Palpation (Terri-wound Yes No Skin Appearance) -Ulcer Cleansing Soap and Water Soap and Water -Foul Odor after Cleansing No No -Anesthetic Used 5% Lidocaine 5% Lidocaine Gel Gel - Nurse 2 - General Ulcer CM Notes Start: 01/20/24 13:01 Freq: Status: Active Protocol: Activity Type Activity Date Activity User E-sign Co-sign Detail Recorded Client Recorded Date Recorded By Document 01/20/24 13:34 [id number] 01/20/24 13:43 Document 01/27/24 13:11 [id number] 01/27/24 13:13 01/20/24 01/27/24 13:34 13:11 Wound Center Nurse 2 #4 right lateral foot -Time 13:37 -Correct Patient Yes -Correct Side, Site, Position Yes -Correct Procedure Yes -Procedure Performed Yes -Type of Procedure Debridement -Clinical Debridement Subcutaneous -Tissue Removed Subcutaneous -Tunneling No -Undermining/Tunneling No -Circular Undermining No -Wound/Ulcer Outcome Not Healed -Ulcer Cleansing Rinsed/ Irrigated with Saline -Foul Odor after Cleansing No -Bioengineered Tissue No -Bleeding Controlled with Pressure -Treatment Response Procedure Tolerated Well -Offloading Yes -Type of Offloading Surgical Shoe -Debridement - Subq, 1st 20sq cm No 1. left Lateral foot POST-OP -Time 13:36 13:11 -Correct Patient Yes Yes -Correct Side, Site, Position Yes Yes -Correct Procedure Yes Yes -Procedure Performed Yes Yes -Type of Procedure Debridement Debridement -Clinical Debridement Muscle / Fascia Muscle / Fascia -Tissue Removed Tendon Muscle,Fascia -Post Debridement (cm) - Length 1.0 0.8 -Post Debridement (cm) - Width 0.6 0.4 -Post Debridement (cm) - Depth 0.5 0.3 -Total Square (Post) (cm) 0.60 0.32 -Area of Debridement (cm) - Length 1.0 0.8 -Area of Debridement (cm) - Width 0.6 0.4 -Total Square (Area) (cm) 0.60 0.32 -Tunneling No No -Undermining/Tunneling No No -Circular Undermining No No -Wound/Ulcer Outcome Not Healed Not Healed -Ulcer Cleansing Rinsed/ Rinsed/ Irrigated with Irrigated with Saline Saline -Foul Odor after Cleansing No No -Bioengineered Tissue No No -Bleeding Controlled with Pressure Pressure -Treatment Response Procedure Procedure Tolerated Well Tolerated Well -Offloading Yes Yes -Type of Offloading Surgical Shoe Surgical Shoe -Debridement - Muscle / Fascia, 1st Yes Yes 20sq cm Pain Scale: 0-10 Numeric Is Patient Pain Free? Yes Yes WC - Nurse 3 - General Ulcer D/C NN Start: 01/20/24 13:01 Freq: Status: Active Protocol: Activity Type Activity Date Activity User E-sign Co-sign Detail Recorded Client Recorded Date Recorded By Document 01/20/24 14:01 DL [id number] 01/20/24 14:03 DL Document 01/27/24 13:31 RB [id number] 01/27/24 13:33 RB 01/20/24 01/27/24 14:01 13:31 Wound Care Center Nurse 3 1. left Lateral foot POST-OP -Ulcer Cleansing Rinsed/ Irrigated with Saline -Primary Dressing Applied Promogran Promogran Anika Matter Anika Matter -Primary Dressing Covered/Secured with Dry Gauze & Dry Gauze,Dry Roll Gauze, Gauze & Roll Secured with Gauze,Secured Tape with Tape -Promogran Anika Matter 1 1 -Wound Comment(s) Betadine to left third toe [place] on R Lat wrapped with foot. L 3rd toe betadine gauze, , gauze only. R lateral foot corn lotion applied as ordered Left -Tubular Bandage Single Layer -Size of Tubigrip Used Size D -Size D ($) 1 suzanne -Other pt own tubigrip Treatment Response Procedure Procedure Tolerated Well Tolerated Well Pain Scale: 0-10 Numeric Is Patient Pain Free? Yes Yes WC - Visit Discharge Discharge Condition Stable Stable Ambulatory Status Wheelchair Walker Transportation Private Auto Private Auto Accompanied by Medication Reconcilliation completed & No provided to patient/care provider Clinical Summary of Care Provided Yes Assessment/Plan Assessment/Plan (1) Non-pressure chronic ulcer of other part of left foot with necrosis of muscle: CODE(S): L97.523 - Non-pressure chronic ulcer of other part of left foot with necrosis of muscle PLAN: Patient was examined and evaluated. All findings were discussed with the patient. All questions were answered to the patient's satisfaction. Excisional debridement down to including subcutaneous tissue, fascia and muscle to the left lateral full-thickness ulceration with a number 3 mm dermal curette without incident. Predebridement measurement was sanguinous crust. Postdebridement measurement is 0.8 x 0.4 x 0.3 cm. Left lower extremities were cleaned and patted dry. Betadine paint was applied to the left third digit. Anika dry sterile dressing and light compression wrap was applied to the left foot. Band-Aid was applied to the right foot. Patient will be placed on a prophylactic dose of doxycycline and milligrams twice daily due to dry gangrene to the left third digit. I did discuss with the patient great detail that if his toe does not improve he will need vascular intervention prior to any form of amputation unless the dry gangrene turns to wet gangrene which she was understanding of. Educated the patient continue to practice smoking cessation which he will attempt to try. Follow-up at the wound care center with Dr. Guaman in 1 week. (2) Gangrene, not elsewhere classified: CODE(S): I96 - Gangrene, not elsewhere classified (3) Other specified peripheral vascular diseases: CODE(S): I73.89 - Other specified peripheral vascular diseases
--- NOTE | 2024-01-28 09:03 | WC ---
PHOTO LEFT LATERAL FOOT
[2024-02-03 12:53] VITALS: BP 80/47; PULSE 109; RESP 18; TEMP 36.8; BMI 23.6
--- NOTE | 2024-02-03 13:38 | PN.PCM_ITS ---
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 Patient's wound is stable and improving. Subjective Subjective Mr. Oliva is a 73-year-old male presented wound care center today for follow-up evaluation of full-thickness wound to the left foot. Patient has been doing dressing changes as instructed. He admits improvement to the right foot. He also states that his third digit that he clipped with a fingernail technician is turning dark in color. He is not sure if it is gangrenous. He denies constitutional symptoms. No other pedal complaints at this time. Objective Data Objective Data Vital Signs: Vital Signs Temp Pulse Resp BP O2 Del Method O2 Flow Rate 98.2 F 109 H 18 80/47 L Nasal Cannula 3 02/03/24 12:53 02/03/24 12:53 02/03/24 12:53 02/03/24 12:53 01/27/24 12:48 01/17/24 00:14 Oxygen Flow Rate (L/min) 3 Oxygen Delivery Method Nasal Cannula Weight: 72.575 kg Body Mass Index (BMI) 23.6 Physical Exam Narrative Vascular: Neurovascular status is unchanged. CFT is brisk. Nonpitting edema appreciated to the bilateral lower extremity. Skin temp great is warm to cool from proximal ankles to distal digits bilateral. Neurological: Light touch intact. Protective sensation is intact. Patient response to painful stimuli. Dermatological: Full-thickness ulceration to the lateral left foot is a sanguinous crust. Evidence of dry gangrene with full-thickness wound to the left third digit. Dry gangrene is stable with no sign of infection. Full- thickness ulceration to the left toe measures 1.2 x 2.3 x 0.1 cm. Excisional debridement down to and including subcutaneous tissue with a number 3 mm dermal curette to the left third digit full-thickness ulceration without incident. Predebridement measurement was 1.0 x 2.0 x 0.1 cm. Postdebridement measurement is 1.2 x 2.3 x 0.1 cm. Musculoskeletal: Patient has mild pain on palpation to the styloid process of the right foot. Mild pain on palpation to the sanguinous crust to the healed full-thickness wound to the left foot. No pain on palpation to the left third digit. No pain with calf pressure. Debridement Note Debridement Note Debridement Free Text: Excisional debridement down to and including subcutaneous tissue with a number 3 mm dermal curette to the left third digit full-thickness ulceration without incident. Predebridement measurement was 1.0 x 2.0 x 0.1 cm. Postdebridement measurement is 1.2 x 2.3 x 0.1 cm. Post-Debridement Measurements and Additional Note: Post-Debridement Measurements/Treatment - Nurse 1 - General Ulcer Assessment Start: 01/20/24 13:01 Freq: Status: Active Protocol: BRUCE.LOWEXT Activity Type Activity Date Activity User E-sign Co-sign Detail Recorded Client Recorded Date Recorded By Document 01/20/24 13:01 ML [id number] 01/20/24 13:14 ML Document 01/27/24 12:48 JF [id number] 01/27/24 12:50 JF Document 02/03/24 12:53 DL [id number] 02/03/24 13:01 DL 01/20/24 01/27/24 02/03/24 13:01 12:48 12:53 - Today's Visit Information Type of service Follow-up Visit Follow-up Visit Follow-up Visit (Physician/CERAMIC ENGINEERING PROFESSOR (Physician/CERAMIC ENGINEERING PROFESSOR (Physician/CERAMIC ENGINEERING PROFESSOR ) ) ) Arrival Mode Wheelchair Wheelchair Wheelchair Transfer Assistance None Manual Transfer Assist (Other) 1 Patient Identification Verified (Name & Yes Yes Yes ) Patient Requires Transmission-Based No No Precautions Safety Precautions Fall Prevention Height and Weight Body Mass Index (BMI) 23.6 23.6 23.6 BMI Classification Normal Normal Normal Vital Signs Temperature (97.8 F-99.1 F) 98.7 F 98.0 F 98.2 F Temperature Source Temporal Temporal Temporal Pulse Rate (60-100) 104 H 120 H 109 H Pulse Location Monitor Monitor Monitor Respiratory Rate (12-18) 22 H 18 18 Respiratory rate source Observation Observation Observation Oxygen Delivery Method Nasal Cannula Blood Pressure (90/60-120/80) 122/72 H 128/54 H 80/47 L Blood Pressure Mean (mm Hg) 88 78 58 Source Monitor Monitor Monitor Position Sitting Sitting Blood Pressure Location Left Arm Right Forearm History Since Last Visit- (Skip if this is Patient's initial visit) Have you changed medications since your No No No last visit? Any new allergies or adverse reactions No No No Had a fall/change in ADL's that may No No No increase risk of falls Signs or symptoms of abuse and/or No No No neglect since last visit Have you been in the hospital since your No No No last visit? Has dressing in place as prescribed Yes Yes Yes Has compression in place as prescribed N/A Yes Yes Has offloadiing in place as prescribed N/A Yes Yes Experienced any changes in pain level or No No No management Left Footwear Surgical Shoe with pressure relief insole Right Footwear Regular Shoe Pain Scale: 0-10 Numeric Is Patient Pain Free? Yes Yes Yes WC - Nurse 1 - General Ulcer Measurement Start: 01/20/24 13:01 Freq: Status: Active Protocol: Activity Type Activity Date Activity User E-sign Co-sign Detail Recorded Client Recorded Date Recorded By Document 01/20/24 13:01 ML [id number] 01/20/24 13:14 ML Document 01/27/24 12:50 JF [id number] 01/27/24 12:57 JF Document 02/03/24 12:53 DL [id number] 02/03/24 13:01 DL 01/20/24 01/27/24 02/03/24 13:01 12:50 12:53 Wound Center Nurse 1 1. left Lateral foot POST-OP -Current Size (cm) - Length 1.5 0.7 0.1 -Current Size (cm) - Width 0.5 0.8 0.1 -Current Size (cm) - Depth 0.1 0.1 0.1 -Total Square Cm 0.75 0.56 0.01 -Date of Last Picture (Recall this 01/27/24 field) -Photo Taken Yes -Tunneling No -Undermining/Tunneling No -Circular Undermining No -Exudate Amt Medium None Present -Exudate Type Serosanguineous -Wound Margin Distinct, Thickened Outline Attached -Granulation Amt Medium (34-66%) None Present (0 %) -Slough/Fibrin Yes -Necrosis Amt Medium (34-66%) Large (67-100%) -Necrotic Tissue Type Adherent Slough Eschar -Structure Exposed N/A -Texture (Terri-wound Skin Appearance) Assessed Assessed Scarring -Moisture (Terri-wound Skin Appearance) Assessed Assessed Dry/Scaly -Color (Terri-wound Skin Appearance) Assessed Assessed No Abnormality -Temperature (Terri-wound Skin No Abnormality No Abnormality No Abnormality Appearance) (Pt Warm) (Pt Warm) (Pt Warm) -Tenderness on Palpation (Terri-wound Yes No No Skin Appearance) -Ulcer Cleansing Soap and Water Soap and Water Soap and Water -Foul Odor after Cleansing No No No -Anesthetic Used 5% Lidocaine 5% Lidocaine 5% Lidocaine Gel Gel Gel WC - Nurse 2 - General Ulcer CM Notes Start: 01/20/24 13:01 Freq: Status: Active Protocol: Activity Type Activity Date Activity User E-sign Co-sign Detail Recorded Client Recorded Date Recorded By Document 01/20/24 13:34 [id number] 01/20/24 13:43 Document 01/27/24 13:11 [id number] 01/27/24 13:13 Document 02/03/24 13:15 [id number] 02/03/24 13:17 01/20/24 01/27/24 02/03/24 13:34 13:11 13:15 Wound Center Nurse 2 #4 right lateral foot -Time 13:37 -Correct Patient Yes -Correct Side, Site, Position Yes -Correct Procedure Yes -Procedure Performed Yes -Type of Procedure Debridement -Clinical Debridement Subcutaneous -Tissue Removed Subcutaneous -Tunneling No -Undermining/Tunneling No -Circular Undermining No -Wound/Ulcer Outcome Not Healed -Ulcer Cleansing Rinsed/ Irrigated with Saline -Foul Odor after Cleansing No -Bioengineered Tissue No -Bleeding Controlled with Pressure -Treatment Response Procedure Tolerated Well -Offloading Yes -Type of Offloading Surgical Shoe -Debridement - Subq, 1st 20sq cm No 5-left 3rd toe -Time 13:16 -Correct Patient Yes -Correct Side, Site, Position Yes -Correct Procedure Yes -Procedure Performed Yes -Type of Procedure Debridement -Clinical Debridement Subcutaneous -Tissue Removed Subcutaneous -Post Debridement (cm) - Length 1.2 -Post Debridement (cm) - Width 2.3 -Post Debridement (cm) - Depth 0.1 -Total Square (Post) (cm) 2.76 -Area of Debridement (cm) - Length 1.2 -Area of Debridement (cm) - Width 2.3 -Total Square (Area) (cm) 2.76 -Tunneling No -Undermining/Tunneling No -Circular Undermining No -Wound/Ulcer Outcome Not Healed -Ulcer Cleansing Rinsed/ Irrigated with Saline -Foul Odor after Cleansing No -Bioengineered Tissue No -Bleeding Controlled with Pressure -Treatment Response Procedure Tolerated Well -Offloading Yes -Type of Offloading Surgical Shoe -Debridement - Subq, 1st 20sq cm Yes 1. left Lateral foot POST-OP -Time 13:36 13:11 13:15 -Correct Patient Yes Yes Yes -Correct Side, Site, Position Yes Yes Yes -Correct Procedure Yes Yes Yes -Procedure Performed Yes Yes Yes -Type of Procedure Debridement Debridement Debridement -Clinical Debridement Muscle / Fascia Muscle / Fascia Subcutaneous -Tissue Removed Tendon Muscle,Fascia Subcutaneous -Post Debridement (cm) - Length 1.0 0.8 0.1 -Post Debridement (cm) - Width 0.6 0.4 0.1 -Post Debridement (cm) - Depth 0.5 0.3 0.1 -Total Square (Post) (cm) 0.60 0.32 0.01 -Area of Debridement (cm) - Length 1.0 0.8 0.1 -Area of Debridement (cm) - Width 0.6 0.4 0.1 -Total Square (Area) (cm) 0.60 0.32 0.01 -Tunneling No No No -Undermining/Tunneling No No No -Circular Undermining No No No -Wound/Ulcer Outcome Not Healed Not Healed Not Healed -Ulcer Cleansing Rinsed/ Rinsed/ Rinsed/ Irrigated with Irrigated with Irrigated with Saline Saline Saline -Foul Odor after Cleansing No No No -Bioengineered Tissue No No No -Bleeding Controlled with Pressure Pressure Pressure -Treatment Response Procedure Procedure Procedure Tolerated Well Tolerated Well Tolerated Well -Offloading Yes Yes Yes -Type of Offloading Surgical Shoe Surgical Shoe Surgical Shoe -Debridement - Subq, 1st 20sq cm No -Debridement - Muscle / Fascia, 1st Yes Yes 20sq cm Pain Scale: 0-10 Numeric Is Patient Pain Free? Yes Yes Yes WC - Nurse 3 - General Ulcer D/C NN Start: 01/20/24 13:01 Freq: Status: Active Protocol: Activity Type Activity Date Activity User E-sign Co-sign Detail Recorded Client Recorded Date Recorded By Document 01/20/24 14:01 DL [id number] 01/20/24 14:03 DL Document 01/27/24 13:31 RB [id number] 01/27/24 13:33 RB 01/20/24 01/27/24 14:01 13:31 Wound Care Center Nurse 3 1. left Lateral foot POST-OP -Ulcer Cleansing Rinsed/ Irrigated with Saline -Primary Dressing Applied Promogran Promogran Anika Matter Anika Matter -Primary Dressing Covered/Secured with Dry Gauze & Dry Gauze,Dry Roll Gauze, Gauze & Roll Secured with Gauze,Secured Tape with Tape -Promogran Anika Matter 1 1 -Wound Comment(s) Betadine to left third toe [place] on R Lat wrapped with foot. L 3rd toe betadine gauze, , gauze only. R lateral foot corn lotion applied as ordered Left -Tubular Bandage Single Layer -Size of Tubigrip Used Size D -Size D ($) 1 suzanne -Other pt own tubigrip Treatment Response Procedure Procedure Tolerated Well Tolerated Well Pain Scale: 0-10 Numeric Is Patient Pain Free? Yes Yes WC - Visit Discharge Discharge Condition Stable Stable Ambulatory Status Wheelchair Walker Transportation Private Auto Private Auto Accompanied by Medication Reconcilliation completed & No provided to patient/care provider Clinical Summary of Care Provided Yes Assessment/Plan Assessment/Plan (1) Gangrene, not elsewhere classified: CODE(S): I96 - Gangrene, not elsewhere classified PLAN: Patient was examined and evaluated. All findings were discussed with the patient. All questions were answered to the patient's satisfaction. Excisional debridement down to and including subcutaneous tissue with a number 3 mm dermal curette to the left third digit full-thickness ulceration without incident. Predebridement measurement was 1.0 x 2.0 x 0.1 cm. Postdebridement measurement is 1.2 x 2.3 x 0.1 cm. Betadine paint was applied to the left third digit followed by moist Betadine soaked gauze which dried sterile dressing. No compression was applied. Patient has plans to see vascular surgery on 02/25/2024 for consultation. Patient will take one 300 mg gabapentin daily as needed. I did educate the patient that if he is gangrenous left third toe turns wet he will need to present to the emergency room for admission and surgical intervention if needed. I did educate the patient that we will wait to see how the toe demarcates. Educated the patient continue to practice smoking cessation which he will attempt to try. Follow-up at the wound care center with Dr. Guaman in 1 week. (2) Other specified peripheral vascular diseases: CODE(S): I73.89 - Other specified peripheral vascular diseases (3) Non-pressure chronic ulcer of other part of left foot with fat layer exposed: CODE(S): L97.522 - Non-pressure chronic ulcer of other part of left foot with fat layer exposed
[2024-02-09 11:09] VITALS: BP 112/64; PULSE 116; RESP 20; TEMP 36.7; BMI 23.6
--- NOTE | 2024-02-09 12:31 | PCM.WC.PN ---
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 Patient's wound is stable and improving. Subjective Subjective Mr. Oliva is a 74-year-old male presenting to the wound care center today for follow-up evaluation of gangrenous left third digit and full-thickness wound to the left foot. Has been compliant with dressing changes. He does admit to some bleeding of the toe over the weekend which was controlled by his who is a nurse. He still continues to smoke. He is following up with vascular surgery in the next upcoming week. He denies any new onset of trauma. Denies constitutional symptoms. Other pedal complaints at this time. Objective Data Objective Data Vital Signs: Vital Signs Temp Pulse Resp BP O2 Del Method O2 Flow Rate 98.1 F 116 H 20 H 112/64 Nasal Cannula 3 02/09/24 11:09 02/09/24 11:09 02/09/24 11:09 02/09/24 11:09 01/27/24 12:48 01/17/24 00:14 Oxygen Flow Rate (L/min) 3 Oxygen Delivery Method Nasal Cannula Weight: 72.575 kg Body Mass Index (BMI) 23.6 Physical Exam Narrative Vascular: Neurovascular status is unchanged. CFT is brisk. Nonpitting edema appreciated to the bilateral lower extremity. Skin temp great is warm to cool from proximal ankles to distal digits bilateral. Neurological: Light touch intact. Protective sensation is intact. Patient response to painful stimuli. Dermatological: Full-thickness ulceration to the lateral left foot measuring 1.0 x 0.5 x 0.3 cm. Evidence of dry gangrene to the left third digit stable with no sign of infection. Excisional debridement down to including subcutaneous tissue with a number 3 mm dermal curette to the left lateral full-thickness ulceration without incident. Predebridement measurement was callus. Postdebridement measurement is 1.0 x 0.5 x 0.3 cm. Musculoskeletal: No pain on palpation to the right styloid process of the right foot. Mild pain to palpation to the full-thickness wound to the left lateral foot. No pain on palpation to the dry gangrene of the left third digit. No pain with calf pressure. Debridement Note Debridement Note Debridement Free Text: Excisional debridement down to including subcutaneous tissue with a number 3 mm dermal curette to the left lateral full-thickness ulceration without incident. Predebridement measurement was callus. Postdebridement measurement is 1.0 x 0.5 x 0.3 cm. Post-Debridement Measurements and Additional Note: Post-Debridement Measurements/Treatment WC - Nurse 1 - General Ulcer Assessment Start: 01/20/24 13:01 Freq: Status: Active Protocol: CARLOS Activity Type Activity Date Activity User E-sign Co-sign Detail Recorded Client Recorded Date Recorded By Document 01/20/24 13:01 ML [id number] 01/20/24 13:14 ML Document 01/27/24 12:48 JF [id number] 01/27/24 12:50 JF Document 02/03/24 12:53 DL [id number] 02/03/24 13:01 DL Document 02/09/24 11:09 ML [id number] 02/09/24 11:20 ML 01/20/24 01/27/24 02/03/24 13:01 12:48 12:53 WC - Today's Visit Information Type of service Follow-up Visit Follow-up Visit Follow-up Visit (Physician/MOTOR GRADER OPERATOR (Physician/MOTOR GRADER OPERATOR (Physician/MOTOR GRADER OPERATOR ) ) ) Arrival Mode Wheelchair Wheelchair Wheelchair Transfer Assistance None Manual Transfer Assist (Other) 1 Patient Identification Verified (Name & Yes Yes Yes ) Patient Requires Transmission-Based No No Precautions Safety Precautions Fall Prevention Height and Weight Body Mass Index (BMI) 23.6 23.6 23.6 BMI Classification Normal Normal Normal Vital Signs Temperature (97.8 F-99.1 F) 98.7 F 98.0 F 98.2 F Temperature Source Temporal Temporal Temporal Pulse Rate (60-100) 104 H 120 H 109 H Pulse Location Monitor Monitor Monitor Respiratory Rate (12-18) 22 H 18 18 Respiratory rate source Observation Observation Observation Oxygen Delivery Method Nasal Cannula Blood Pressure (90/60-120/80) 122/72 H 128/54 H 80/47 L Blood Pressure Mean (mm Hg) 88 78 58 Source Monitor Monitor Monitor Position Sitting Sitting Blood Pressure Location Left Arm Right Forearm History Since Last Visit- (Skip if this is Patient's initial visit) Have you changed medications since your No No No last visit? Any new allergies or adverse reactions No No No Had a fall/change in ADL's that may No No No increase risk of falls Signs or symptoms of abuse and/or No No No neglect since last visit Have you been in the hospital since your No No No last visit? Has dressing in place as prescribed Yes Yes Yes Has compression in place as prescribed N/A Yes Yes Has offloadiing in place as prescribed N/A Yes Yes Experienced any changes in pain level or No No No management Left Footwear Surgical Shoe with pressure relief insole Right Footwear Regular Shoe Pain Scale: 0-10 Numeric Is Patient Pain Free? Yes Yes Yes 02/09/24 11:09 WC - Today's Visit Information Type of service Follow-up Visit (Physician/MOTOR GRADER OPERATOR ) Arrival Mode Wheelchair Transfer Assistance None Transfer Assist (Other) Patient Identification Verified (Name & Yes ) Patient Requires Transmission-Based No Precautions Safety Precautions Height and Weight Body Mass Index (BMI) 23.6 BMI Classification Normal Vital Signs Temperature (97.8 F-99.1 F) 98.1 F Temperature Source Temporal Pulse Rate (60-100) 116 H Pulse Location Monitor Respiratory Rate (12-18) 20 H Respiratory rate source Observation Oxygen Delivery Method Blood Pressure (90/60-120/80) 112/64 Blood Pressure Mean (mm Hg) 80 Source Monitor Position Sitting Blood Pressure Location Right Arm History Since Last Visit- (Skip if this is Patient's initial visit) Have you changed medications since your No last visit? Any new allergies or adverse reactions No Had a fall/change in ADL's that may No increase risk of falls Signs or symptoms of abuse and/or No neglect since last visit Have you been in the hospital since your No last visit? Has dressing in place as prescribed Yes Has compression in place as prescribed N/A Has offloadiing in place as prescribed N/A Experienced any changes in pain level or No management Left Footwear Right Footwear Pain Scale: 0-10 Numeric Is Patient Pain Free? Yes - Nurse 1 - General Ulcer Measurement Start: 01/20/24 13:01 Freq: Status: Active Protocol: Activity Type Activity Date Activity User E-sign Co-sign Detail Recorded Client Recorded Date Recorded By Document 01/20/24 13:01 ML [id number] 01/20/24 13:14 ML Document 01/27/24 12:50 JF [id number] 01/27/24 12:57 JF Document 02/03/24 12:53 DL [id number] 02/03/24 13:01 DL Document 02/09/24 11:09 ML [id number] 02/09/24 11:20 ML 01/20/24 01/27/24 02/03/24 13:01 12:50 12:53 Wound Center Nurse 1 5-left 3rd toe -Current Size (cm) - Length -Current Size (cm) - Width -Current Size (cm) - Depth -Total Square Cm -Exudate Amt -Exudate Type -Granulation Amt -Slough/Fibrin -Necrosis Amt -Texture (Terri-wound Skin Appearance) -Moisture (Terri-wound Skin Appearance) -Color (Terri-wound Skin Appearance) -Temperature (Terri-wound Skin Appearance) -Tenderness on Palpation (Terri-wound Skin Appearance) -Ulcer Cleansing -Foul Odor after Cleansing -Anesthetic Used 1. left Lateral foot POST-OP -Current Size (cm) - Length 1.5 0.7 0.1 -Current Size (cm) - Width 0.5 0.8 0.1 -Current Size (cm) - Depth 0.1 0.1 0.1 -Total Square Cm 0.75 0.56 0.01 -Date of Last Picture (Recall this 01/27/24 field) -Photo Taken Yes -Tunneling No -Undermining/Tunneling No -Circular Undermining No -Exudate Amt Medium None Present -Exudate Type Serosanguineous -Wound Margin Distinct, Thickened Outline Attached -Granulation Amt Medium (34-66%) None Present (0 %) -Granulation Quality -Slough/Fibrin Yes -Necrosis Amt Medium (34-66%) Large (67-100%) -Necrotic Tissue Type Adherent Slough Eschar -Structure Exposed N/A -Texture (Terri-wound Skin Appearance) Assessed Assessed Scarring -Moisture (Terri-wound Skin Appearance) Assessed Assessed Dry/Scaly -Color (Terri-wound Skin Appearance) Assessed Assessed No Abnormality -Temperature (Terri-wound Skin No Abnormality No Abnormality No Abnormality Appearance) (Pt Warm) (Pt Warm) (Pt Warm) -Tenderness on Palpation (Terri-wound Yes No No Skin Appearance) -Ulcer Cleansing Soap and Water Soap and Water Soap and Water -Foul Odor after Cleansing No No No -Anesthetic Used 5% Lidocaine 5% Lidocaine 5% Lidocaine Gel Gel Gel 02/09/24 11:09 Wound Center Nurse 1 5-left 3rd toe -Current Size (cm) - Length 1 -Current Size (cm) - Width 1 -Current Size (cm) - Depth 0.1 -Total Square Cm 1 -Exudate Amt Small -Exudate Type Serous -Granulation Amt None Present (0 %) -Slough/Fibrin No -Necrosis Amt Large (67-100%) -Texture (Terri-wound Skin Appearance) Assessed -Moisture (Terri-wound Skin Appearance) Assessed -Color (Terri-wound Skin Appearance) Ecchymosis -Temperature (Terri-wound Skin No Abnormality Appearance) (Pt Warm) -Tenderness on Palpation (Terri-wound Yes Skin Appearance) -Ulcer Cleansing Rinsed/ Irrigated with Saline -Foul Odor after Cleansing No -Anesthetic Used 5% Lidocaine Gel 1. left Lateral foot POST-OP -Current Size (cm) - Length 2 -Current Size (cm) - Width 0.1 -Current Size (cm) - Depth 0.1 -Total Square Cm 0.2 -Date of Last Picture (Recall this field) -Photo Taken -Tunneling -Undermining/Tunneling -Circular Undermining -Exudate Amt Medium -Exudate Type Serosanguineous -Wound Margin Distinct, Outline Attached -Granulation Amt Medium (34-66%) -Granulation Quality Pale -Slough/Fibrin Yes -Necrosis Amt Small (1-33%) -Necrotic Tissue Type Adherent Slough -Structure Exposed -Texture (Terri-wound Skin Appearance) Assessed -Moisture (Terri-wound Skin Appearance) Assessed -Color (Terri-wound Skin Appearance) Assessed -Temperature (Terri-wound Skin No Abnormality Appearance) (Pt Warm) -Tenderness on Palpation (Terri-wound Yes Skin Appearance) -Ulcer Cleansing Rinsed/ Irrigated with Saline -Foul Odor after Cleansing Yes -Anesthetic Used 5% Lidocaine Gel WC - Nurse 2 - General Ulcer CM Notes Start: 01/20/24 13:01 Freq: Status: Active Protocol: Activity Type Activity Date Activity User E-sign Co-sign Detail Recorded Client Recorded Date Recorded By Document 01/20/24 13:34 SHELLIE [id number] 01/20/24 13:43 Document 01/27/24 13:11 JF [id number] 01/27/24 13:13 Document 02/03/24 13:15 [id number] 02/03/24 13:17 JF Document 02/09/24 11:39 [id number] 02/09/24 11:42 JF 01/20/24 01/27/24 02/03/24 13:34 13:11 13:15 Wound Center Nurse 2 #4 right lateral foot -Time 13:37 -Correct Patient Yes -Correct Side, Site, Position Yes -Correct Procedure Yes -Procedure Performed Yes -Type of Procedure Debridement -Clinical Debridement Subcutaneous -Tissue Removed Subcutaneous -Tunneling No -Undermining/Tunneling No -Circular Undermining No -Wound/Ulcer Outcome Not Healed -Ulcer Cleansing Rinsed/ Irrigated with Saline -Foul Odor after Cleansing No -Bioengineered Tissue No -Bleeding Controlled with Pressure -Treatment Response Procedure Tolerated Well -Offloading Yes -Type of Offloading Surgical Shoe -Debridement - Subq, 1st 20sq cm No 5-left 3rd toe -Time 13:16 -Correct Patient Yes -Correct Side, Site, Position Yes -Correct Procedure Yes -Procedure Performed Yes -Type of Procedure Debridement -Clinical Debridement Subcutaneous -Tissue Removed Subcutaneous -Post Debridement (cm) - Length 1.2 -Post Debridement (cm) - Width 2.3 -Post Debridement (cm) - Depth 0.1 -Total Square (Post) (cm) 2.76 -Area of Debridement (cm) - Length 1.2 -Area of Debridement (cm) - Width 2.3 -Total Square (Area) (cm) 2.76 -Tunneling No -Undermining/Tunneling No -Circular Undermining No -Wound/Ulcer Outcome Not Healed -Ulcer Cleansing Rinsed/ Irrigated with Saline -Foul Odor after Cleansing No -Bioengineered Tissue No -Bleeding Controlled with Pressure -Treatment Response Procedure Tolerated Well -Offloading Yes -Type of Offloading Surgical Shoe -Debridement - Subq, 1st 20sq cm Yes 1. left Lateral foot POST-OP -Time 13:36 13:11 13:15 -Correct Patient Yes Yes Yes -Correct Side, Site, Position Yes Yes Yes -Correct Procedure Yes Yes Yes -Procedure Performed Yes Yes Yes -Type of Procedure Debridement Debridement Debridement -Clinical Debridement Muscle / Fascia Muscle / Fascia Subcutaneous -Tissue Removed Tendon Muscle,Fascia Subcutaneous -Post Debridement (cm) - Length 1.0 0.8 0.1 -Post Debridement (cm) - Width 0.6 0.4 0.1 -Post Debridement (cm) - Depth 0.5 0.3 0.1 -Total Square (Post) (cm) 0.60 0.32 0.01 -Area of Debridement (cm) - Length 1.0 0.8 0.1 -Area of Debridement (cm) - Width 0.6 0.4 0.1 -Total Square (Area) (cm) 0.60 0.32 0.01 -Tunneling No No No -Undermining/Tunneling No No No -Circular Undermining No No No -Wound/Ulcer Outcome Not Healed Not Healed Not Healed -Ulcer Cleansing Rinsed/ Rinsed/ Rinsed/ Irrigated with Irrigated with Irrigated with Saline Saline Saline -Foul Odor after Cleansing No No No -Bioengineered Tissue No No No -Bleeding Controlled with Pressure Pressure Pressure -Treatment Response Procedure Procedure Procedure Tolerated Well Tolerated Well Tolerated Well -Offloading Yes Yes Yes -Type of Offloading Surgical Shoe Surgical Shoe Surgical Shoe -Debridement - Subq, 1st 20sq cm No -Debridement - Muscle / Fascia, 1st Yes Yes 20sq cm Pain Scale: 0-10 Numeric Is Patient Pain Free? Yes Yes Yes 02/09/24 11:39 Wound Center Nurse 2 #4 right lateral foot -Time -Correct Patient -Correct Side, Site, Position -Correct Procedure -Procedure Performed -Type of Procedure -Clinical Debridement -Tissue Removed -Tunneling -Undermining/Tunneling -Circular Undermining -Wound/Ulcer Outcome -Ulcer Cleansing -Foul Odor after Cleansing -Bioengineered Tissue -Bleeding Controlled with -Treatment Response -Offloading -Type of Offloading -Debridement - Subq, 1st 20sq cm 5-left 3rd toe -Time -Correct Patient No -Correct Side, Site, Position No -Correct Procedure No -Procedure Performed No -Type of Procedure -Clinical Debridement -Tissue Removed -Post Debridement (cm) - Length -Post Debridement (cm) - Width -Post Debridement (cm) - Depth -Total Square (Post) (cm) -Area of Debridement (cm) - Length -Area of Debridement (cm) - Width -Total Square (Area) (cm) -Tunneling -Undermining/Tunneling -Circular Undermining -Wound/Ulcer Outcome Not Healed -Ulcer Cleansing -Foul Odor after Cleansing -Bioengineered Tissue -Bleeding Controlled with -Treatment Response -Offloading -Type of Offloading -Debridement - Subq, 1st 20sq cm 1. left Lateral foot POST-OP -Time 11:40 -Correct Patient Yes -Correct Side, Site, Position Yes -Correct Procedure Yes -Procedure Performed Yes -Type of Procedure Debridement -Clinical Debridement Subcutaneous -Tissue Removed Subcutaneous -Post Debridement (cm) - Length 1.0 -Post Debridement (cm) - Width 0.5 -Post Debridement (cm) - Depth 0.3 -Total Square (Post) (cm) 0.50 -Area of Debridement (cm) - Length 1.0 -Area of Debridement (cm) - Width 0.5 -Total Square (Area) (cm) 0.50 -Tunneling No -Undermining/Tunneling No -Circular Undermining No -Wound/Ulcer Outcome Not Healed -Ulcer Cleansing Rinsed/ Irrigated with Saline -Foul Odor after Cleansing No -Bioengineered Tissue No -Bleeding Controlled with Pressure -Treatment Response Procedure Tolerated Well -Offloading Yes -Type of Offloading Surgical Shoe -Debridement - Subq, 1st 20sq cm Yes -Debridement - Muscle / Fascia, 1st 20sq cm Pain Scale: 0-10 Numeric Is Patient Pain Free? Yes - Nurse 3 - General Ulcer D/C NN Start: 01/20/24 13:01 Freq: Status: Active Protocol: Activity Type Activity Date Activity User E-sign Co-sign Detail Recorded Client Recorded Date Recorded By Document 01/20/24 14:01 DL [id number] 01/20/24 14:03 DL Document 01/27/24 13:31 RB [id number] 01/27/24 13:33 RB Document 02/03/24 13:46 DL [id number] 02/03/24 13:47 DL Document 02/09/24 11:50 KW [id number] 02/09/24 11:55 KW 01/20/24 01/27/24 02/03/24 14:01 13:31 13:46 Wound Care Center Nurse 3 5-left 3rd toe -Foul Odor after Cleansing No -Other Dressing Betadine -Primary Dressing Covered/Secured with Dry Gauze, Secured with Tape 1. left Lateral foot POST-OP -Ulcer Cleansing Rinsed/ Rinsed/ Irrigated with Irrigated with Saline Saline -Foul Odor after Cleansing No -Primary Dressing Applied Promogran Promogran Promogran Anika Matter Anika Matter Anika Matter -Primary Dressing Covered/Secured with Dry Gauze & Dry Gauze,Dry Dry Gauze & Roll Gauze, Gauze & Roll Roll Gauze, Secured with Gauze,Secured Secured with Tape with Tape Tape -Promogran Anika Matter 1 1 1 -Wound Comment(s) Betadine to left third toe Barnum on R Lat wrapped with foot. L 3rd toe betadine gauze, , gauze only. R lateral foot corn lotion applied as ordered Left -Tubular Bandage Single Layer -Size of Tubigrip Used Size D -Size D ($) 1 suzanne -Other pt own tubigrip Treatment Response Procedure Procedure Procedure Tolerated Well Tolerated Well Tolerated Well Pain Scale: 0-10 Numeric Is Patient Pain Free? Yes Yes Yes WC - Visit Discharge Discharge Condition Stable Stable Stable Ambulatory Status Wheelchair Walker Wheelchair Transportation Private Auto Private Auto Private Auto Accompanied by Medication Reconcilliation completed & No provided to patient/care provider Clinical Summary of Care Provided Yes Facility Type Home Health Orders Sent Yes 02/09/24 11:50 Wound Care Center Nurse 3 5-left 3rd toe -Foul Odor after Cleansing -Other Dressing betadine -Primary Dressing Covered/Secured with Dry Gauze 1. left Lateral foot POST-OP -Ulcer Cleansing -Foul Odor after Cleansing -Primary Dressing Applied Promogran Anika Matter -Primary Dressing Covered/Secured with Dry Gauze & Roll Gauze, Secured with Tape -Promogran Anika Matter 1 -Wound Comment(s) Left -Tubular Bandage -Size of Tubigrip Used -Size D ($) suzanne -Other Treatment Response Pain Scale: 0-10 Numeric Is Patient Pain Free? Yes WC - Visit Discharge Discharge Condition Ambulatory Status Transportation Accompanied by Medication Reconcilliation completed & provided to patient/care provider Clinical Summary of Care Provided Facility Type Orders Sent Assessment/Plan Assessment/Plan (1) Gangrene, not elsewhere classified: CODE(S): I96 - Gangrene, not elsewhere classified PLAN: Patient was examined and evaluated. All findings were discussed with the patient. All questions were answered to the patient's satisfaction. Excisional debridement down to including subcutaneous tissue with a number 3 mm dermal curette to the left lateral full-thickness ulceration without incident. Predebridement measurement was callus. Postdebridement measurement is 1.0 x 0.5 x 0.3 cm. Left lower extremities were cleaned and patted dry. Moist present was applied to the full-thickness wound, Betadine paint was applied to the left third digit followed by dry sterile dressing and light compression wrap to left lower extremity. Patient is planning to see vascular surgery on 02/25/2024 for consultation. Patient will continue take gabapentin as instructed. Educated the patient on smoking cessation. Once patient's has seen vascular we will make plans for surgical removal of the third digit or allow for demarcation with autoamputation if able. Follow-up at the wound care center with Dr. Guaman in 2 week. (2) Other specified peripheral vascular diseases: CODE(S): I73.89 - Other specified peripheral vascular diseases (3) Non-pressure chronic ulcer of other part of left foot with fat layer exposed: CODE(S): L97.522 - Non-pressure chronic ulcer of other part of left foot with fat layer exposed
== END 2024-02-16 23:59 | disposition home or self-care (01) ==
LOC: WC 11:15
PROVIDERS: PCP Family Medicine; Referring Provider Podiatrist Foot & Ankle Surgery; Visit Provider Podiatrist Foot & Ankle Surgery
DX: I96 Gangrene, not elsewhere classified (principal); L97.523 Non-pressure chronic ulcer of other part of left foot with necrosis of muscle; M86.8X7 Other osteomyelitis, ankle and foot; R60.0 Localized edema; F17.200 Nicotine dependence, unspecified, uncomplicated; Z79.82 Long term (current) use of aspirin; Z79.01 Long term (current) use of anticoagulants; Z79.899 Other long term (current) drug therapy
CPT/HCPCS: 11042; 11043

== ENCOUNTER → 2024-02-24 | Outpatient (CLI) | payer MEDICARE, SELFPAY ==
--- NOTE | 2024-02-24 14:14 | ART_ITS ---
Reason For Study: Ulcer Procedure A bilateral lower extremity continuous wave Doppler with analog waveform analysis,segmental pressures,and ankle brachial indexes without exercise. Left Segmental Pressures Left brachial= 103mmHg. Left posterior tibial artery = 109mmHg. Left dorsalis pedis artery = 92mmHg. Left digit = 20 mmHg. The left dorsalis pedis waveforms are biphasic. The left posterior tibial artery waveforms are triphasic. Right Segmental Pressures Right brachial= 106mmHg. Right high thigh = 109mmHg. Right low thigh = 111mmHg. Right calf = 84mmHg. Right posterior tibial artery = 77mmHg. Right dorsalis pedis artery = 75mmHg. Right digit = 27 mmHg. The right dorsalis pedis waveforms are triphasic. The right posterior tibial artery waveforms are triphasic. Indices The right ankle brachial index by the dorsalis pedis is 0.71. The right ankle brachial index by the posterior tibial artery is 0.73. The right digital-brachial index is 0.25. The left ankle brachial index by the dorsalis pedis is 0.87. The left ankle brachial index by the posterior tibial artery is 1.03. The left digital-brachial index is 0.19. VL/Lower Ext Art Exam w/o Exercis Interpretation Summary Right FRANKO 0.73, moderate arterial insufficiency. Doppler/PVR waveforms and segm ental pressures reveal distal SFA/popliteal. Left FRANKO 1.03, normal. Doppler/PVR waveforms of the left leg normal at rest. TB I and digit waveforms diminished, pedal/digit disease. Ordering Physician: Sabina Mosher Referring Physician: Blas Krishnan M.D. Performed By: Harpreet Rodriguez RVT and Student
== END | disposition home or self-care (01) ==
LOC: CVS 14:09
PROVIDERS: PCP Family Medicine; Referring Provider Physician Assistant; Visit Provider Physician Assistant
DX: L97.524 Non-pressure chronic ulcer of other part of left foot with necrosis of bone (principal); I96 Gangrene, not elsewhere classified
CPT/HCPCS: 93923

== ENCOUNTER 2024-03-02 13:27 | Outpatient (CLI) | payer MEDICARE, SELFPAY ==
--- NOTE | 2024-03-02 13:32 | CT_ITS ---
EXAM: CT ANGIOGRAPHY ABDOMEN AND PELVIS WITH RUNOFF TO THE LOWER EXTREMITIES WITH INTRAVENOUS CONTRAST CLINICAL INDICATION: L 3rd toe gangrene, L lat foot wound, buerger''s? TECHNIQUE: Helically acquired angiography images were obtained of the abdomen, pelvis and lower extremities with intravenous contrast using CTA runoff protocol. This CT exam was performed using one or more of the following dose reduction techniques: automated exposure control, adjustment of the mA and/or kV according to patient size, and/or use of iterative reconstruction technique. MIP reconstructed images were created and reviewed. CONTRAST: IV 100mL [id number] COMPARISON: CT chest, 12/18/2023 FINDINGS: VASCULATURE: AORTA: Atherosclerosis of the aorta without aneurysm or dissection. CELIAC TRUNK AND MESENTERIC ARTERIES: No significant findings. No occlusion or significant stenosis. No dissection. RENAL ARTERIES: No significant findings. No occlusion or significant stenosis. No dissection. RIGHT ILIAC ARTERIES: Atherosclerosis of the bilateral iliac arteries without evidence of aneurysm or dissection. No significant stenosis. RIGHT FEMORAL/POPLITEAL ARTERIES: Atherosclerosis of the right superficial femoral artery with segmental proximal occlusion, reconstituted distally with additional multifocal mild stenoses. Mild atheroma of the right common femoral artery with no greater than mild stenosis. Atherosclerosis of the right deep femoral artery with no greater than mild stenosis. RIGHT CALF/FOOT ARTERIES: No significant findings. No occlusion or significant stenosis. LEFT ILIAC ARTERIES: See above. LEFT FEMORAL/POPLITEAL ARTERIES: Atheroma throughout the course of the left superficial femoral artery with mild to moderate multifocal stenosis. Atherosclerosis of the left common femoral artery with mild stenosis. LEFT CALF/FOOT ARTERIES: Diminished contrast enhancement within the left peroneal artery distally which may be secondary to relative decrease in flow rather than occlusion or critical stenosis. Normal arterial enhancement of the anterior and posterior tibial arteries of the left lower extremity. LOWER THORAX: Paraseptal and centrilobular emphysema in the lung bases. Coronary artery calcifications. No cardiomegaly. No significant pericardial effusion. ABDOMEN: LIVER: No significant abnormality. Homogeneous. No focal mass. GALLBLADDER AND BILE DUCTS: No significant abnormality. No calcified gallstones. No gallbladder distention or wall edema. No intra- or extrahepatic biliary ductal dilation. PANCREAS: No significant abnormality. No focal cystic or solid mass. SPLEEN: No significant abnormality. Normal size without focal cystic or solid mass. ADRENALS: No significant abnormality. No nodules. KIDNEYS AND URETERS: Bilateral renal cysts are present. No follow-up is indicated. Normal renal size and position. No hydronephrosis. STOMACH AND BOWEL: Moderate colorectal stool without evidence of bowel obstruction or other acute pathology. No focal inflammatory change. PELVIS: APPENDIX: No evidence of acute appendicitis. BLADDER: No significant abnormality. REPRODUCTIVE: Normal as visualized. No mass. ABDOMEN, PELVIS and LOWER EXTREMITIES: INTRAPERITONEAL SPACE: No significant abnormality. No ascites or other fluid collection. No free air. BONES/JOINTS: Nondisplaced fracture at the base of the left fourth metatarsal and postresection changes of the left fifth metatarsal. Trace bilateral knee joint effusions. Degenerative changes in the spine and hips. No suspicious lytic or blastic abnormality. SOFT TISSUES: Left Shore''s cyst. No discrete abdominal or pelvic wall hernia. LYMPH NODES: No significant abnormality. No enlarged lymph nodes. CT/CTA Abd w/Runoff W/WO Contrast IMPRESSION: 1. Atherosclerosis of the right superficial femoral artery with segmental proximal occlusion, reconstituted distally with additional multifocal mild stenoses. 2. Diminished contrast enhancement within the left peroneal artery distally which may be secondary to relative decrease in flow rather than occlusion or critical stenosis. Normal arterial enhancement of the anterior and posterior tibial arteries of the left lower extremity. 3. Paraseptal and centrilobular emphysema in the lung bases. NOTE: Emphysema on CT is an independent risk factor for lung cancer. Consider low dose CT for lung cancer screening between the ages of 50 and 77. 4. Nondisplaced fracture at the base of the left fourth metatarsal and postresection changes of the left fifth metatarsal. 5. Moderate colorectal stool without evidence of bowel obstruction or other acute pathology. Electronically Signed: Clay Patrick DO at 23:01 EST ,
[2024-03-02 13:54] VITALS: BP 158/74; PULSE 105; RESP 20; O2SAT 99; BMI 22.1
[2024-03-02] MEDS: 0.9% Normal Saline (500mL Bag) 500 ML IV (14:26)
[2024-03-02 15:49] VITALS: BP 168/78; PULSE 109; RESP 18; O2SAT 98
== END 2024-03-02 23:59 | disposition home or self-care (01) ==
PROVIDERS: PCP Family Medicine; Referring Provider Physician Assistant; Visit Provider Physician Assistant
DX: N18.9 Chronic kidney disease, unspecified (principal); L97.523 Non-pressure chronic ulcer of other part of left foot with necrosis of muscle; I73.89 Other specified peripheral vascular diseases; I70.0 Atherosclerosis of aorta
CPT/HCPCS: 75635; Q9967

== ENCOUNTER 2024-03-09 13:00 | Outpatient (RCR) | payer MEDICARE, SELFPAY ==
[2024-02-17 00:10] VITALS: BP 96/50; PULSE 77; RESP 20; TEMP 36.8; BMI 23.6
[2024-02-24 12:47] VITALS: BP 103/61; PULSE 118; RESP 18; TEMP 36.3; BMI 23.6
--- NOTE | 2024-02-24 13:16 | PCM.WC.PN ---
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 Patient's wound is stable and improving. Subjective Subjective Mr. Oliva is a 74-year-old male presenting to the wound care center today for follow-up evaluation of gangrenous left third digit and full-thickness wound to the left foot. Has been compliant with dressing changes. He still continues to smoke. He is planning for vascular tests over the next 2 weeks. He denies any new onset of trauma. Denies constitutional symptoms. Other pedal complaints at this time. Objective Data Objective Data Vital Signs: Vital Signs Temp Pulse Resp BP O2 Flow Rate 97.4 F L 118 H 18 103/61 3 02/24/24 12:47 02/24/24 12:47 02/24/24 12:47 02/24/24 12:47 02/17/24 00:10 Oxygen Flow Rate (L/min) 3 Weight: 72.575 kg Body Mass Index (BMI) 23.6 Physical Exam Narrative Vascular: Neurovascular status is unchanged. CFT is brisk. Nonpitting edema appreciated to the bilateral lower extremity. Skin temp great is warm to cool from proximal ankles to distal digits bilateral. Neurological: Light touch intact. Protective sensation is intact. Patient response to painful stimuli. Dermatological: Full-thickness ulceration to the lateral left foot measuring 0.8 x 0.4 x 0.3 cm. Evidence of dry gangrene to the left third digit stable with no sign of infection. Excisional debridement down to including subcutaneous tissue with a number 3 mm dermal curette to the left lateral full-thickness ulceration without incident. Predebridement measurement was callus. Postdebridement measurement is 0.8 x 0.4 x 0.3 cm. Musculoskeletal: No pain on palpation to the right styloid process of the right foot. Mild pain to palpation to the full-thickness wound to the left lateral foot. Mild pain on palpation to the dry gangrene of the left third digit. No pain with calf pressure. Debridement Note Debridement Note Debridement Free Text: Excisional debridement down to including subcutaneous tissue with a number 3 mm dermal curette to the left lateral full-thickness ulceration without incident. Predebridement measurement was callus. Postdebridement measurement is 0.8 x 0.4 x 0.3 cm. Post-Debridement Measurements and Additional Note: Post-Debridement Measurements/Treatment WC - Nurse 1 - General Ulcer Assessment Start: 02/24/24 12:47 Freq: Status: Active Protocol: CARLOS Activity Type Activity Date Activity User E-sign Co-sign Detail Recorded Client Recorded Date Recorded By Document 02/24/24 12:47 CECELIA [id number] 02/24/24 12:52 CECELIA 02/24/24 12:47 WC - Today's Visit Information Type of service Follow-up Visit (Physician/ARTIST WOOD[facility] ) Arrival Mode Wheelchair Transfer Assistance Manual Patient Identification Verified (Name & Yes ) Patient Requires Transmission-Based No Precautions Height and Weight Body Mass Index (BMI) 23.6 BMI Classification Normal Vital Signs Temperature (97.8 F-99.1 F) 97.4 F L Temperature Source Temporal Pulse Rate (60-100) 118 H Pulse Location Monitor Respiratory Rate (12-18) 18 Respiratory rate source Observation Blood Pressure (90/60-120/80) 103/61 Blood Pressure Mean (mm Hg) 75 Source Monitor Position Semi-Fowlers Blood Pressure Location Left Arm History Since Last Visit- (Skip if this is Patient's initial visit) Have you changed medications since your No last visit? Any new allergies or adverse reactions No Had a fall/change in ADL's that may No increase risk of falls Signs or symptoms of abuse and/or No neglect since last visit Have you been in the hospital since your No last visit? Has dressing in place as prescribed Yes Has compression in place as prescribed No Has offloadiing in place as prescribed No Experienced any changes in pain level or No management Pain Scale: 0-10 Numeric Is Patient Pain Free? No LLE -Description Aching -Intensity 10 -Duration (hours) Acute -Pain Behavior Withdrawal from Touch -Pain Aggravating Factors ADL's -Alleviating Factors/Interventions Medication -Effectiveness of Alleviating Factor/ Minimally Intervention effective WC - Nurse 1 - General Ulcer Measurement Start: 02/24/24 12:47 Freq: Status: Active Protocol: Activity Type Activity Date Activity User E-sign Co-sign Detail Recorded Client Recorded Date Recorded By Document 02/24/24 12:47 CECELIA [id number] 02/24/24 12:52 CECELAI 02/24/24 12:47 Wound Center Nurse 1 5-left 3rd toe -Combined with other wound No -Current Size (cm) - Length 0.1 -Current Size (cm) - Width 0.1 -Current Size (cm) - Depth 0.1 -Total Square Cm 0.01 -Tunneling No -Undermining/Tunneling No -Circular Undermining No -Exudate Amt Medium -Exudate Type Serosanguineous -Wound Margin Distinct, Outline Attached -Granulation Amt Medium (34-66%) -Granulation Quality [place] -Slough/Fibrin Yes -Necrosis Amt Large (67-100%) -Necrotic Tissue Type Eschar -Structure Exposed N/A -Texture (Terri-wound Skin Appearance) Assessed, Friable -Moisture (Terri-wound Skin Appearance) Assessed -Color (Terri-wound Skin Appearance) Assessed -Temperature (Terri-wound Skin No Abnormality Appearance) (Pt Warm) -Tenderness on Palpation (Terri-wound No Skin Appearance) -Ulcer Cleansing Wound Cleanser -Foul Odor after Cleansing No -Anesthetic Used 5% Lidocaine Gel 1. left Lateral foot POST-OP -Combined with other wound No -Current Size (cm) - Length 0.1 -Current Size (cm) - Width 0.1 -Current Size (cm) - Depth 0.1 -Total Square Cm 0.01 -Tunneling No -Undermining/Tunneling No -Circular Undermining No -Exudate Amt Medium -Exudate Type Serosanguineous -Wound Margin Distinct, Outline Attached -Granulation Amt Medium (34-66%) -Granulation Quality [place] -Slough/Fibrin Yes -Necrosis Amt Medium (34-66%) -Necrotic Tissue Type Adherent Slough -Structure Exposed N/A -Texture (Terri-wound Skin Appearance) Assessed, Scarring -Moisture (Terri-wound Skin Appearance) Assessed -Color (Terri-wound Skin Appearance) Assessed -Temperature (Terri-wound Skin No Abnormality Appearance) (Pt Warm) -Tenderness on Palpation (Terri-wound No Skin Appearance) -Ulcer Cleansing Wound Cleanser -Foul Odor after Cleansing No -Anesthetic Used 5% Lidocaine Gel WC - Nurse 2 - General Ulcer CM Notes Start: 02/24/24 12:47 Freq: Status: Active Protocol: Activity Type Activity Date Activity User E-sign Co-sign Detail Recorded Client Recorded Date Recorded By Document 02/24/24 13:00 SHELLIE [id number] 02/24/24 13:04 SHELLIE 02/24/24 13:00 Wound Center Nurse 2 5-left 3rd toe -Correct Patient Yes -Correct Side, Site, Position No -Correct Procedure No -Procedure Performed No -Tunneling No -Undermining/Tunneling No -Circular Undermining No -Wound/Ulcer Outcome Not Healed -Bleeding Controlled with Pressure -Treatment Response Procedure Tolerated Well -Offloading No 1. left Lateral foot POST-OP -Time 13:00 -Correct Patient Yes -Correct Side, Site, Position Yes -Correct Procedure Yes -Procedure Performed Yes -Type of Procedure Debridement -Clinical Debridement Subcutaneous -Tissue Removed Subcutaneous -Post Debridement (cm) - Length 0.8 -Post Debridement (cm) - Width 0.4 -Post Debridement (cm) - Depth 0.3 -Total Square (Post) (cm) 0.32 -Area of Debridement (cm) - Length 0.8 -Area of Debridement (cm) - Width 0.4 -Total Square (Area) (cm) 0.32 -Tunneling No -Undermining/Tunneling No -Circular Undermining No -Wound/Ulcer Outcome Not Healed -Ulcer Cleansing Rinsed/ Irrigated with Saline -Foul Odor after Cleansing No -Bioengineered Tissue No -Bleeding Controlled with Pressure -Treatment Response Procedure Tolerated Well -Offloading Yes -Type of Offloading Surgical Shoe -Debridement - Subq, 1st 20sq cm Yes Pain Scale: 0-10 Numeric Is Patient Pain Free? Yes Assessment/Plan Assessment/Plan (1) Gangrene, not elsewhere classified: CODE(S): I96 - Gangrene, not elsewhere classified PLAN: Patient was examined and evaluated. All findings were discussed with the patient. All questions were answered to the patient's satisfaction. Excisional debridement down to including subcutaneous tissue with a number 3 mm dermal curette to the left lateral full-thickness ulceration without incident. Predebridement measurement was callus. Postdebridement measurement is 0.8 x 0.4 x 0.3 cm. Left lower extremities were cleaned and patted dry. Moist ERICH was applied to the full-thickness wound, Betadine paint was applied to the left third digit followed by dry sterile dressing and light compression wrap to left lower extremity. Patient is planning vascular testing over the next 2 weeks. Educated the patient on smoking cessation. I did educate the patient that if he is having issues with the toe, becoming wet, and he is cleared by vascular I will recommend an office amputation and flap closure which she is understanding of. Follow-up at the wound care center with Dr. Guaman in 2 week. (2) Other specified peripheral vascular diseases: CODE(S): I73.89 - Other specified peripheral vascular diseases (3) Non-pressure chronic ulcer of other part of left foot with fat layer exposed: CODE(S): L97.522 - Non-pressure chronic ulcer of other part of left foot with fat layer exposed
[2024-03-09 12:47] VITALS: BP 132/69; PULSE 119; RESP 18; TEMP 37.4; BMI 23.6
--- NOTE | 2024-03-09 13:17 | PCM.WC.PN ---
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 Patient's wound is stable and improving. Subjective Subjective Mr. Oliva is a 74-year-old male presenting to the wound care center today for follow-up evaluation of gangrenous left third digit and full-thickness wound to the left foot. Has been compliant with dressing changes. He still continues to smoke. Patient missed we had his vascular tests. He denies any new onset of trauma. Denies constitutional symptoms. Other pedal complaints at this time. Objective Data Objective Data Vital Signs: Vital Signs Temp Pulse Resp BP O2 Flow Rate 99.3 F H 119 H 18 132/69 H 3 03/09/24 12:47 03/09/24 12:47 03/09/24 12:47 03/09/24 12:47 02/17/24 00:10 Oxygen Flow Rate (L/min) 3 Weight: 72.575 kg Body Mass Index (BMI) 23.6 Physical Exam Narrative Vascular: Neurovascular status is unchanged. CFT is brisk. Nonpitting edema appreciated to the bilateral lower extremity. Skin temp great is warm to cool from proximal ankles to distal digits bilateral. Neurological: Light touch intact. Protective sensation is intact. Patient response to painful stimuli. Dermatological: Full-thickness ulceration to the lateral left foot measuring 1.5 x 0.4 x 0.2 cm. Evidence of dry gangrene to the left third digit stable with no sign of infection. Excisional debridement down to including subcutaneous tissue with a number 3 mm dermal curette to the left lateral full-thickness ulceration without incident. Predebridement measurement was callus. Postdebridement measurement is 1.5 x 0.4 x 0.2 cm. Musculoskeletal: No pain on palpation to the right styloid process of the right foot. Mild pain to palpation to the full-thickness wound to the left lateral foot. Mild pain on palpation to the dry gangrene of the left third digit. No pain with calf pressure. Debridement Note Debridement Note Debridement Free Text: Excisional debridement down to including subcutaneous tissue with a number 3 mm dermal curette to the left lateral full-thickness ulceration without incident. Predebridement measurement was callus. Postdebridement measurement is 1.5 x 0.4 x 0.2 cm. Post-Debridement Measurements and Additional Note: Post-Debridement Measurements/Treatment WC - Nurse 1 - General Ulcer Assessment Start: 02/24/24 12:47 Freq: Status: Active Protocol: CARLOS Activity Type Activity Date Activity User E-sign Co-sign Detail Recorded Client Recorded Date Recorded By Document 02/24/24 12:47 RB [id number] 02/24/24 12:52 RB Document 03/09/24 12:47 DL [id number] 03/09/24 12:57 DL 02/24/24 03/09/24 12:47 12:47 WC - Today's Visit Information Type of service Follow-up Visit Follow-up Visit (Physician/ADULT LIVE IN CAREGIVER (Physician/ADULT LIVE IN CAREGIVER ) ) Arrival Mode Wheelchair Ambulatory, Wheelchair Transfer Assistance Manual None Patient Identification Verified (Name & Yes Yes ) Patient Requires Transmission-Based No No Precautions Height and Weight Body Mass Index (BMI) 23.6 23.6 BMI Classification Normal Normal Vital Signs Temperature (97.8 F-99.1 F) 97.4 F L 99.3 F H Temperature Source Temporal Temporal Pulse Rate (60-100) 118 H 119 H Pulse Location Monitor Monitor Respiratory Rate (12-18) 18 18 Respiratory rate source Observation Observation Blood Pressure (90/60-120/80) 103/61 132/69 H Blood Pressure Mean (mm Hg) 75 90 Source Monitor Monitor Position Semi-Fowlers Blood Pressure Location Left Arm History Since Last Visit- (Skip if this is Patient's initial visit) Have you changed medications since your No No last visit? Any new allergies or adverse reactions No No Had a fall/change in ADL's that may No No increase risk of falls Signs or symptoms of abuse and/or No No neglect since last visit Have you been in the hospital since your No No last visit? Has dressing in place as prescribed Yes Yes Has compression in place as prescribed No N/A Has offloadiing in place as prescribed No Yes Experienced any changes in pain level or No No management Pain Scale: 0-10 Numeric Is Patient Pain Free? No Yes LLE -Description Aching -Intensity 10 -Duration (hours) Acute -Pain Behavior Withdrawal from Touch -Pain Aggravating Factors ADL's -Alleviating Factors/Interventions Medication -Effectiveness of Alleviating Factor/ Minimally Intervention effective WC - Nurse 1 - General Ulcer Measurement Start: 01/08/25 12:47 Freq: Status: Active Protocol: Activity Type Activity Date Activity User E-sign Co-sign Detail Recorded Client Recorded Date Recorded By Document 02/24/24 12:47 RB [id number] 02/24/24 12:52 RB Document 03/09/24 12:47 DL [id number] 03/09/24 12:57 DL 02/24/24 03/09/24 12:47 12:47 Wound Center Nurse 1 5-left 3rd toe -Combined with other wound No -Current Size (cm) - Length 0.1 0.1 -Current Size (cm) - Width 0.1 0.1 -Current Size (cm) - Depth 0.1 0.1 -Total Square Cm 0.01 0.01 -Tunneling No -Undermining/Tunneling No -Circular Undermining No -Exudate Amt Medium None Present -Exudate Type Serosanguineous -Wound Margin Distinct, Thickened Outline Attached -Granulation Amt Medium (34-66%) None Present (0 %) -Granulation Quality [place] -Slough/Fibrin Yes -Necrosis Amt Large (67-100%) Large (67-100%) -Necrotic Tissue Type Eschar Eschar -Structure Exposed N/A N/A -Texture (Terri-wound Skin Appearance) Assessed, Assessed Friable -Moisture (Terri-wound Skin Appearance) Assessed No Abnormality -Color (Terri-wound Skin Appearance) Assessed -Temperature (Terri-wound Skin No Abnormality Appearance) (Pt Warm) -Tenderness on Palpation (Terri-wound No Yes Skin Appearance) -Ulcer Cleansing Wound Cleanser Soap and Water -Foul Odor after Cleansing No No -Anesthetic Used 5% Lidocaine Gel 1. left Lateral foot POST-OP -Combined with other wound No -Current Size (cm) - Length 0.1 0.6 -Current Size (cm) - Width 0.1 0.2 -Current Size (cm) - Depth 0.1 0.2 -Total Square Cm 0.01 0.12 -Tunneling No -Undermining/Tunneling No -Circular Undermining No -Exudate Amt Medium Small -Exudate Type Serosanguineous -Wound Margin Distinct, Thickened Outline Attached -Granulation Amt Medium (34-66%) None Present (0 %) -Granulation Quality [place] -Slough/Fibrin Yes -Necrosis Amt Medium (34-66%) Large (67-100%) -Necrotic Tissue Type Adherent Slough Adherent Slough -Structure Exposed N/A N/A -Texture (Treri-wound Skin Appearance) Assessed, Scarring Scarring -Moisture (Terri-wound Skin Appearance) Assessed No Abnormality -Color (Terri-wound Skin Appearance) Assessed No Abnormality -Temperature (Terri-wound Skin No Abnormality No Abnormality Appearance) (Pt Warm) (Pt Warm) -Tenderness on Palpation (Terri-wound No Skin Appearance) -Ulcer Cleansing Wound Cleanser Soap and Water -Foul Odor after Cleansing No No -Anesthetic Used 5% Lidocaine 5% Lidocaine Gel Gel WC - Nurse 2 - General Ulcer CM Notes Start: 02/24/24 12:47 Freq: Status: Active Protocol: Activity Type Activity Date Activity User E-sign Co-sign Detail Recorded Client Recorded Date Recorded By Document 02/24/24 13:00 JF [id number] 02/24/24 13:04 JF Document 03/09/24 13:07 DS [id number] 03/09/24 13:09 DS 02/24/24 03/09/24 13:00 13:07 Wound Center Nurse 2 5-left 3rd toe -Time 13:07 -Correct Patient Yes Yes -Correct Side, Site, Position No -Correct Procedure No -Procedure Performed No No -Tunneling No -Undermining/Tunneling No -Circular Undermining No -Wound/Ulcer Outcome Not Healed Not Healed -Bleeding Controlled with Pressure -Treatment Response Procedure Tolerated Well -Offloading No 1. left Lateral foot POST-OP -Time 13:00 13:07 -Correct Patient Yes Yes -Correct Side, Site, Position Yes Yes -Correct Procedure Yes Yes -Procedure Performed Yes Yes -Type of Procedure Debridement Debridement -Clinical Debridement Subcutaneous Subcutaneous -Tissue Removed Subcutaneous Subcutaneous -Post Debridement (cm) - Length 0.8 1.5 -Post Debridement (cm) - Width 0.4 0.4 -Post Debridement (cm) - Depth 0.3 0.2 -Total Square (Post) (cm) 0.32 0.60 -Area of Debridement (cm) - Length 0.8 1.5 -Area of Debridement (cm) - Width 0.4 0.4 -Total Square (Area) (cm) 0.32 0.60 -Tunneling No No -Undermining/Tunneling No No -Circular Undermining No No -Wound/Ulcer Outcome Not Healed Not Healed -Ulcer Cleansing Rinsed/ Rinsed/ Irrigated with Irrigated with Saline Saline -Foul Odor after Cleansing No No -Bioengineered Tissue No No -Bleeding Controlled with Pressure Pressure -Treatment Response Procedure Procedure Tolerated Well Tolerated Well -Offloading Yes -Type of Offloading Surgical Shoe -Debridement - Subq, 1st 20sq cm Yes Yes Pain Scale: 0-10 Numeric Is Patient Pain Free? Yes Yes WC - Nurse 3 - General Ulcer D/C NN Start: 02/24/24 12:47 Freq: Status: Active Protocol: Activity Type Activity Date Activity User E-sign Co-sign Detail Recorded Client Recorded Date Recorded By Document 02/24/24 13:20 MT [id number] 02/24/24 13:23 MT 02/24/24 13:20 Wound Care Center Nurse 3 5-left 3rd toe -Other Dressing betadine -Primary Dressing Covered/Secured with Dry Gauze, Secured with Tape 1. left Lateral foot POST-OP -Primary Dressing Applied Promogran Erich Matter -Primary Dressing Covered/Secured with Dry Gauze, Secured with Tape -Promogran Erich Matter 1 Pain Scale: 0-10 Numeric Is Patient Pain Free? Yes WC - Visit Discharge Discharge Condition Stable Ambulatory Status Wheelchair Transportation Private Auto Medication Reconcilliation completed & No provided to patient/care provider Clinical Summary of Care Provided Yes Assessment/Plan Assessment/Plan (1) Gangrene, not elsewhere classified: CODE(S): I96 - Gangrene, not elsewhere classified PLAN: Patient was examined and evaluated. All findings were discussed with the patient. All questions were answered to the patient's satisfaction. Excisional debridement down to including subcutaneous tissue with a number 3 mm dermal curette to the left lateral full-thickness ulceration without incident. Predebridement measurement was callus. Postdebridement measurement is 1.5 x 0.4 x 0.2 cm.. Left lower extremities were cleaned and patted dry. Moist ERICH was applied to the full-thickness wound, Betadine paint was applied to the left third digit followed by dry sterile dressing and light compression wrap to left lower extremity. Arterial studies show evidence of triphasic pulses to right lower extremity. Left pulses are triphasic on PT and biphasic on DP. There is evidence of digital TBI pathology to the bilateral lower extremity with the right TBI's being 0.25 in the left TBI's being 0.19. Due to the patient's decrease in TBI's to the left lower extremity. I did tell the patient that he will need to move forward with surgical intervention due to the gangrenous changes to the third digit left foot. I did also educate the patient that he could most likely end up having delayed healing due to the decreased blood flow of the amputation site and stump after surgery which she was also understanding of. Will make all efforts to treat the patient as high risk and move forward with surgical intervention with all risk and benefit discussed with the patient in great detail and he showed understanding of this. If the patient does dehisce we will move forward with graft application as needed. Educated the patient on smoking cessation. Follow-up at the wound care center with Dr. Guaman in 2 week. (2) Other specified peripheral vascular diseases: CODE(S): I73.89 - Other specified peripheral vascular diseases (3) Non-pressure chronic ulcer of other part of left foot with fat layer exposed: CODE(S): L97.522 - Non-pressure chronic ulcer of other part of left foot with fat layer exposed
== END 2024-03-18 23:59 | disposition home or self-care (01) ==
LOC: WC 13:00
PROVIDERS: PCP Family Medicine; Referring Provider Podiatrist Foot & Ankle Surgery; Visit Provider Podiatrist Foot & Ankle Surgery
DX: I70.262 Atherosclerosis of native arteries of extremities with gangrene, left leg (principal); L97.522 Non-pressure chronic ulcer of other part of left foot with fat layer exposed; M86.8X7 Other osteomyelitis, ankle and foot; F17.200 Nicotine dependence, unspecified, uncomplicated; Z79.82 Long term (current) use of aspirin; Z79.01 Long term (current) use of anticoagulants; Z79.899 Other long term (current) drug therapy
CPT/HCPCS: 11042

== ENCOUNTER 2024-04-06 13:00 | Outpatient (RCR) | payer MEDICARE, SELFPAY ==
[2024-03-19 00:31] VITALS: BP 132/69; PULSE 119; RESP 18; TEMP 37.4; BMI 23.6
[2024-03-23 13:00] VITALS: BP 142/69; PULSE 108; RESP 18; TEMP 37; BMI 23.6
--- NOTE | 2024-03-23 14:34 | PCM.WC.PN ---
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 Patient's wound is stable and improving. Progress of Wound: Left lateral chronic ulceration stable with no sign of infection with evidence of dry gangrene to the left third digit stable Subjective Subjective Mr. Oliva is a 74-year-old male presenting to wound care center today follow-up evaluation of full-thickness wound to the lateral left foot as well as dry gangrene to the left third digit. Patient is coordinating with our office to provide him with times for surgical intervention to the dry gangrene of the left foot third digit. He understands all risk and benefits. He has been doing dressing changes as instructed. Denies trauma. Denies constitutional symptoms. No other pedal complaints at this time. Objective Data Objective Data Vital Signs: Vital Signs Temp Pulse Resp BP O2 Flow Rate 98.6 F 108 H 18 142/69 H 3 03/23/24 13:00 03/23/24 13:00 03/23/24 13:00 03/23/24 13:00 03/19/24 00:31 Oxygen Flow Rate (L/min) 3 Weight: 72.575 kg Body Mass Index (BMI) 23.6 Physical Exam Narrative Vascular: Neurovascular status is unchanged. CFT is brisk. Nonpitting edema appreciated to the bilateral lower extremity. Skin temp great is warm to cool from proximal ankles to distal digits bilateral. Neurological: Light touch intact. Protective sensation is intact. Patient response to painful stimuli. Dermatological: Full-thickness ulceration to the lateral left foot measuring 0.9 x 0.3 x 0.1 cm. Evidence of dry gangrene to the left third digit stable with no sign of infection. Excisional debridement down to including subcutaneous tissue with a number 3 mm dermal curette to the left lateral full-thickness ulceration without incident. Predebridement measurement was callus. Postdebridement measurement is 0.9 x 0.3 x 0.1 cm. Musculoskeletal: No pain on palpation to the right styloid process of the right foot. Mild pain to palpation to the full-thickness wound to the left lateral foot. Mild pain on palpation to the dry gangrene of the left third digit. No pain with calf pressure. Debridement Note Debridement Note Post-Debridement Measurements and Additional Note: Post-Debridement Measurements/Treatment BRUCE - Nurse 1 - General Ulcer Assessment Start: 03/23/24 12:56 Freq: Status: Active Protocol: CARLOS Activity Type Activity Date Activity User E-sign Co-sign Detail Recorded Client Recorded Date Recorded By Document 03/23/24 13:00 DL [id number] 03/23/24 13:08 DL 03/23/24 13:00 WC - Today's Visit Information Type of service Follow-up Visit (Physician/WATER RESOURCES PROJECT MANAGER ) Arrival Mode Wheelchair Transfer Assistance None Patient Identification Verified (Name & Yes ) Patient Requires Transmission-Based No Precautions Height and Weight Body Mass Index (BMI) 23.6 BMI Classification Normal Vital Signs Temperature (97.8 F-99.1 F) 98.6 F Temperature Source Temporal Pulse Rate (60-100) 108 H Pulse Location Monitor Respiratory Rate (12-18) 18 Blood Pressure (90/60-120/80) 142/69 H Blood Pressure Mean (mm Hg) 93 Source Monitor History Since Last Visit- (Skip if this is Patient's initial visit) Have you changed medications since your No last visit? Any new allergies or adverse reactions No Had a fall/change in ADL's that may No increase risk of falls Signs or symptoms of abuse and/or No neglect since last visit Have you been in the hospital since your No last visit? Has dressing in place as prescribed Yes Has compression in place as prescribed N/A Has offloadiing in place as prescribed Yes Pain Scale: 0-10 Numeric Is Patient Pain Free? Yes BRUCE - Nurse 1 - General Ulcer Measurement Start: 03/23/24 12:56 Freq: Status: Active Protocol: Activity Type Activity Date Activity User E-sign Co-sign Detail Recorded Client Recorded Date Recorded By Document 03/23/24 13:00 DL [id number] 03/23/24 13:08 DL 03/23/24 13:00 Wound Center Nurse 1 5-left 3rd toe -Current Size (cm) - Length 0.1 -Current Size (cm) - Width 0.1 -Current Size (cm) - Depth 0.1 -Total Square Cm 0.01 -Exudate Amt Small -Wound Margin Thickened -Granulation Amt None Present (0 %) -Necrosis Amt Large (67-100%) -Necrotic Tissue Type Eschar -Structure Exposed N/A -Texture (Terri-wound Skin Appearance) Friable, Scarring -Moisture (Terri-wound Skin Appearance) Dry/Scaly -Color (Terri-wound Skin Appearance) Assessed -Temperature (Terri-wound Skin No Abnormality Appearance) (Pt Warm) -Tenderness on Palpation (Terri-wound Yes Skin Appearance) -Ulcer Cleansing Rinsed/ Irrigated with Saline -Foul Odor after Cleansing No 1. left Lateral foot POST-OP -Current Size (cm) - Length 0.3 -Current Size (cm) - Width 0.2 -Current Size (cm) - Depth 0.1 -Total Square Cm 0.06 -Exudate Amt None Present -Wound Margin Thickened -Granulation Amt Small (1-33%) -Granulation Quality [place] -Necrosis Amt Small (1-33%) -Necrotic Tissue Type Adherent Slough -Structure Exposed N/A -Texture (Terri-wound Skin Appearance) Scarring -Moisture (Terri-wound Skin Appearance) No Abnormality -Color (Terri-wound Skin Appearance) No Abnormality -Temperature (Terri-wound Skin No Abnormality Appearance) (Pt Warm) -Tenderness on Palpation (Terri-wound Yes Skin Appearance) -Ulcer Cleansing Rinsed/ Irrigated with Saline -Foul Odor after Cleansing No -Anesthetic Used 5% Lidocaine Gel WC - Nurse 2 - General Ulcer CM Notes Start: 03/23/24 12:56 Freq: Status: Active Protocol: Activity Type Activity Date Activity User E-sign Co-sign Detail Recorded Client Recorded Date Recorded By Document 03/23/24 13:19 SHELLIE [id number] 03/23/24 13:20 SHELLIE 03/23/24 13:19 Wound Center Nurse 2 5-left 3rd toe -Correct Patient No -Correct Side, Site, Position No -Correct Procedure No -Procedure Performed No -Wound/Ulcer Outcome Amputation Anticipated 1. left Lateral foot POST-OP -Time 13:20 -Correct Patient Yes -Correct Side, Site, Position Yes -Correct Procedure Yes -Procedure Performed Yes -Type of Procedure Debridement -Clinical Debridement Subcutaneous -Tissue Removed Subcutaneous -Post Debridement (cm) - Length 0.9 -Post Debridement (cm) - Width 0.3 -Post Debridement (cm) - Depth 0.1 -Total Square (Post) (cm) 0.27 -Area of Debridement (cm) - Length 0.9 -Area of Debridement (cm) - Width 0.3 -Total Square (Area) (cm) 0.27 -Tunneling No -Undermining/Tunneling No -Circular Undermining No -Wound/Ulcer Outcome Not Healed -Ulcer Cleansing Rinsed/ Irrigated with Saline -Foul Odor after Cleansing No -Bioengineered Tissue No -Bleeding Controlled with Pressure -Treatment Response Procedure Tolerated Well -Offloading Yes -Type of Offloading Surgical Shoe -Debridement - Subq, 1st 20sq cm Yes Pain Scale: 0-10 Numeric Is Patient Pain Free? Yes WC - Nurse 3 - General Ulcer D/C NN Start: 03/23/24 12:56 Freq: Status: Active Protocol: Activity Type Activity Date Activity User E-sign Co-sign Detail Recorded Client Recorded Date Recorded By Document 03/23/24 13:41 ML [id number] 03/23/24 13:42 ML 03/23/24 13:41 Wound Care Center Nurse 3 5-left 3rd toe -Other Dressing betadine wash 1. left Lateral foot POST-OP -Ulcer Cleansing Rinsed/ Irrigated with Saline -Primary Dressing Applied Promogran Anika Matter -Promogran Anika Matter 1 Pain Scale: 0-10 Numeric Is Patient Pain Free? Yes Assessment/Plan Assessment/Plan (1) Non-pressure chronic ulcer of other part of left foot with fat layer exposed: CODE(S): L97.522 - Non-pressure chronic ulcer of other part of left foot with fat layer exposed PLAN: Patient was examined and evaluated. All findings were discussed with the patient. All questions were answered to the patient's satisfaction. Excisional debridement down to including subcutaneous tissue with a number 3 mm dermal curette to the left lateral full-thickness ulceration without incident. Predebridement measurement was callus. Postdebridement measurement is 0.9 x 0.3 x 0.1 cm. The left lower extremities are clean and patted dry. Moist present was applied to the full-thickness wound to the lateral left foot as well as Betadine paint to the gangrenous third digit left foot. Followed by dry sterile dressing and light compression wrap. Patient will continue dressing changes as instructed. We are still waiting for surgical date and time for incision of bone cortex with advancement flap closure to the left foot third digit. Patient understands all risk and benefits. Follow-up at the wound care center with Dr. Guaman in 2 week. (2) Gangrene, not elsewhere classified: CODE(S): I96 - Gangrene, not elsewhere classified (3) Other specified peripheral vascular diseases: CODE(S): I73.89 - Other specified peripheral vascular diseases
--- NOTE | 2024-04-06 13:26 | PN.PCM_ITS ---
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 Patient's wound is stable and improving. Progress of Wound: Left lateral chronic ulceration stable with no sign of infection with evidence of dry gangrene to the left third digit stable Subjective Subjective Mr. Oliva is a 74-year-old male presenting to wound care center today for follow-up evaluation of full-thickness wound to lateral left foot as well as dry gangrene to the left third digit. Patient states that he still needs to get pulmonary clearance before surgery and is making every attempt to do so. He understand risk and benefit of the surgery like to move forward with surgical intervention at the given date of 04/22/2024. He denies trauma. Denies constitutional symptoms. No other pedal complaints at this time. Objective Data Objective Data Vital Signs: Vital Signs Temp Pulse Resp BP O2 Flow Rate 98.6 F 108 H 18 142/69 H 3 03/23/24 13:00 03/23/24 13:00 03/23/24 13:00 03/23/24 13:00 03/19/24 00:31 Oxygen Flow Rate (L/min) 3 Weight: 72.575 kg Body Mass Index (BMI) 23.6 Physical Exam Narrative Vascular: Neurovascular status is unchanged. CFT is brisk. Nonpitting edema appreciated to the bilateral lower extremity. Skin temp great is warm to cool from proximal ankles to distal digits bilateral. Neurological: Light touch intact. Protective sensation is intact. Patient response to painful stimuli. Dermatological: Evidence of hyperkeratotic tissue appreciated to the styloid process of the right foot. Full-thickness ulceration to the lateral left foot is covered with callus. evidence of dry gangrene to the left third digit stable with no sign of infection. Musculoskeletal: No pain on palpation to the right styloid process of the right foot. Mild pain to palpation to the full-thickness wound to the left lateral foot. Mild pain on palpation to the dry gangrene of the left third digit. No pain with calf pressure. Debridement Note Debridement Note Post-Debridement Measurements and Additional Note: Post-Debridement Measurements/Treatment BRUCE - Nurse 1 - General Ulcer Assessment Start: 03/23/24 12:56 Freq: Status: Active Protocol: HENRIEXT Activity Type Activity Date Activity User E-sign Co-sign Detail Recorded Client Recorded Date Recorded By Document 03/23/24 13:00 DL [id number] 03/23/24 13:08 DL 03/23/24 13:00 WC - Today's Visit Information Type of service Follow-up Visit (Physician/[employer] WORKER ) Arrival Mode Wheelchair Transfer Assistance None Patient Identification Verified (Name & Yes ) Patient Requires Transmission-Based No Precautions Height and Weight Body Mass Index (BMI) 23.6 BMI Classification Normal Vital Signs Temperature (97.8 F-99.1 F) 98.6 F Temperature Source Temporal Pulse Rate (60-100) 108 H Pulse Location Monitor Respiratory Rate (12-18) 18 Blood Pressure (90/60-120/80) 142/69 H Blood Pressure Mean (mm Hg) 93 Source Monitor History Since Last Visit- (Skip if this is Patient's initial visit) Have you changed medications since your No last visit? Any new allergies or adverse reactions No Had a fall/change in ADL's that may No increase risk of falls Signs or symptoms of abuse and/or No neglect since last visit Have you been in the hospital since your No last visit? Has dressing in place as prescribed Yes Has compression in place as prescribed N/A Has offloadiing in place as prescribed Yes Pain Scale: 0-10 Numeric Is Patient Pain Free? Yes - Nurse 1 - General Ulcer Measurement Start: 03/23/24 12:56 Freq: Status: Active Protocol: Activity Type Activity Date Activity User E-sign Co-sign Detail Recorded Client Recorded Date Recorded By Document 03/23/24 13:00 DL [id number] 03/23/24 13:08 DL 03/23/24 13:00 Wound Center Nurse 1 5-left 3rd toe -Current Size (cm) - Length 0.1 -Current Size (cm) - Width 0.1 -Current Size (cm) - Depth 0.1 -Total Square Cm 0.01 -Exudate Amt Small -Wound Margin Thickened -Granulation Amt None Present (0 %) -Necrosis Amt Large (67-100%) -Necrotic Tissue Type Eschar -Structure Exposed N/A -Texture (Treri-wound Skin Appearance) Friable, Scarring -Moisture (Terri-wound Skin Appearance) Dry/Scaly -Color (Terri-wound Skin Appearance) Assessed -Temperature (Terri-wound Skin No Abnormality Appearance) (Pt Warm) -Tenderness on Palpation (Terri-wound Yes Skin Appearance) -Ulcer Cleansing Rinsed/ Irrigated with Saline -Foul Odor after Cleansing No 1. left Lateral foot POST-OP -Current Size (cm) - Length 0.3 -Current Size (cm) - Width 0.2 -Current Size (cm) - Depth 0.1 -Total Square Cm 0.06 -Exudate Amt None Present -Wound Margin Thickened -Granulation Amt Small (1-33%) -Granulation Quality [place] -Necrosis Amt Small (1-33%) -Necrotic Tissue Type Adherent Slough -Structure Exposed N/A -Texture (Terri-wound Skin Appearance) Scarring -Moisture (Terri-wound Skin Appearance) No Abnormality -Color (Terri-wound Skin Appearance) No Abnormality -Temperature (Terri-wound Skin No Abnormality Appearance) (Pt Warm) -Tenderness on Palpation (Terri-wound Yes Skin Appearance) -Ulcer Cleansing Rinsed/ Irrigated with Saline -Foul Odor after Cleansing No -Anesthetic Used 5% Lidocaine Gel WC - Nurse 2 - General Ulcer CM Notes Start: 03/23/24 12:56 Freq: Status: Active Protocol: Activity Type Activity Date Activity User E-sign Co-sign Detail Recorded Client Recorded Date Recorded By Document 03/23/24 13:19 [id number] 03/23/24 13:20 SHELLIE 03/23/24 13:19 Wound Center Nurse 2 5-left 3rd toe -Correct Patient No -Correct Side, Site, Position No -Correct Procedure No -Procedure Performed No -Wound/Ulcer Outcome Amputation Anticipated 1. left Lateral foot POST-OP -Time 13:20 -Correct Patient Yes -Correct Side, Site, Position Yes -Correct Procedure Yes -Procedure Performed Yes -Type of Procedure Debridement -Clinical Debridement Subcutaneous -Tissue Removed Subcutaneous -Post Debridement (cm) - Length 0.9 -Post Debridement (cm) - Width 0.3 -Post Debridement (cm) - Depth 0.1 -Total Square (Post) (cm) 0.27 -Area of Debridement (cm) - Length 0.9 -Area of Debridement (cm) - Width 0.3 -Total Square (Area) (cm) 0.27 -Tunneling No -Undermining/Tunneling No -Circular Undermining No -Wound/Ulcer Outcome Not Healed -Ulcer Cleansing Rinsed/ Irrigated with Saline -Foul Odor after Cleansing No -Bioengineered Tissue No -Bleeding Controlled with Pressure -Treatment Response Procedure Tolerated Well -Offloading Yes -Type of Offloading Surgical Shoe -Debridement - Subq, 1st 20sq cm Yes Pain Scale: 0-10 Numeric Is Patient Pain Free? Yes WC - Nurse 3 - General Ulcer D/C NN Start: 03/23/24 12:56 Freq: Status: Active Protocol: Activity Type Activity Date Activity User E-sign Co-sign Detail Recorded Client Recorded Date Recorded By Document 03/23/24 13:41 ML [id number] 03/23/24 13:42 ML 03/23/24 13:41 Wound Care Center Nurse 3 5-left 3rd toe -Other Dressing betadine wash 1. left Lateral foot POST-OP -Ulcer Cleansing Rinsed/ Irrigated with Saline -Primary Dressing Applied Promogran Anika Matter -Promogran Anika Matter 1 Pain Scale: 0-10 Numeric Is Patient Pain Free? Yes Assessment/Plan Assessment/Plan (1) Non-pressure chronic ulcer of other part of left foot with fat layer exposed: CODE(S): L97.522 - Non-pressure chronic ulcer of other part of left foot with fat layer exposed PLAN: Patient was examined and evaluated. All findings were discussed with the patient. All questions were answered to the patient's satisfaction. At the time of the patient's visit the patient move forward with filling out all his surgical paperwork. Risk and benefit benefits were discussed with the patient great detail. He is aware of all risk and benefits and understands that there could be potential for delayed healing due to his moderate arterial disease. If there is any issues after surgery the patient will follow-up with vascular surgery for intervention as discussed previously during the patient's time here with vascular surgery as well as the wound care center. Plan for surgery to the left lower extremity will be 04/22/2024 at [facility]. Patient will be following up with pulmonology in the next week or 2. If the patient is not cleared we will recommend moving the case to a local only case. He was understanding of this. Patient will be on doxycycline milligrams twice daily due to a upper respiratory infection. Follow-up at the wound care center with Dr. Guaman in 1 week. (2) Gangrene, not elsewhere classified: CODE(S): I96 - Gangrene, not elsewhere classified (3) Other specified peripheral vascular diseases: CODE(S): I73.89 - Other specified peripheral vascular diseases
[2024-04-06 13:27] VITALS: BP 124/74; PULSE 124; RESP 18; BMI 23.6
--- NOTE | 2024-04-06 14:24 | NURSING ---
Addendum entered by Wade Orellana 04/06/24 14:26: Left 3rd toe Original Note: PHOTO 04/06/24 Left Foot
--- NOTE | 2024-04-06 14:27 | WC ---
PHOTO 04/06/24 Left Lateral Foot
--- NOTE | 2024-04-06 14:28 | WC ---
PHOTO 04/06/24 Right Lat Foot
== END 2024-04-15 23:59 | disposition home or self-care (01) ==
LOC: WC 13:00
PROVIDERS: PCP Family Medicine; Referring Provider Podiatrist Foot & Ankle Surgery; Visit Provider Podiatrist Foot & Ankle Surgery
DX: I70.262 Atherosclerosis of native arteries of extremities with gangrene, left leg (principal); L97.522 Non-pressure chronic ulcer of other part of left foot with fat layer exposed; Z79.82 Long term (current) use of aspirin; Z79.01 Long term (current) use of anticoagulants; Z79.899 Other long term (current) drug therapy
CPT/HCPCS: 11042; 97597

== ENCOUNTER 2024-04-09 20:27 | Emergency (ER) | payer MEDICARE, SELFPAY ==
[2024-04-09 20:27] VITALS: BP 143/84; PULSE 112; RESP 27; TEMP 36.6; O2SAT 95; BMI 21.7
--- NOTE | 2024-04-09 20:37 | EDS_ITS ---
HPI History of Present Illness Chief Complaint: Abd Pain [facility] Medical History Chronic kidney disease Depression Anxiety Smoker Sleep apnea Insulin resistance CKD stage 3b, GFR 30-44 ml/min Anemia Chronic anticoagulation History of COPD Other specified peripheral vascular diseases Hx of blood clots HTN (hypertension) Asthma COPD (chronic obstructive pulmonary disease) Tobacco dependence syndrome COLD (chronic obstructive lung disease) Home Medications ?Medication ?Instructions ?Recorded ?Last Taken ?Type aspirin 81 mg chewable tablet 81 mg PO DAILY@0800 [facility] 02/03/14 11/04/23 History budesonide-formoterol HFA 160 2 puff PO BID COPD 02/0311/04/23 History mcg-4.5 mcg/actuation aerosol inhaler (Symbicort) albuterol sulfate 90 mcg/actuation 2 puff inhalation Q 4H PRN PRN Sob 08/24/18 11/04/23 History aerosol inhaler &/Or Wheezing apixaban 5 mg tablet 5 mg PO BID BLOOD THINNER 11/04/23 History lisinopril 20 mg tablet 20 mg PO DAILY bp 08/24/18 0 11/04/23 History Held on 04/06/24. Instructions: Ordered pravastatin 10 mg tablet 10 mg PO QHS HIGH CHOLESTERO L 10/04/22 11/04/23 History PEP device #1 ea 11/06/22 Unknown Rx folic acid 400 mcg tablet 0.4 mg PO DAILY DIETARY SUPP LEMENT 11/06/22 07/06/23 History cyanocobalamin (vitamin B-12) 100 100 mcg PO DAILY VIT JAMISON SUPPLEMENT 04/16/23 07/06/23 History mcg tablet (Vitamin B-12) cholecalciferol (vitamin D3) 25 25 mcg PO DAILY DIETAR Y SUPPLEMENT 05/27/23 11/04/23 History mcg (1,000 unit) capsule (Vitamin D3) acetaminophen 500 mg tablet 1,000 mg (2 x 500 mg) PO Q 8 #0 tabs 07/15/23 Unknown Rx amlodipine 2.5 mg tablet 2.5 mg PO DAILY #0 tabs /11/0911/04/23 Rx docusate sodium 100 mg capsule 100 mg PO BID #0 caps 0 07/15/23 Unknown Rx ipratropium 0.5 mg-albuterol 3 mg 3 ml inhalation Q4H PRN shortness 10/05/23 Unknown Rx (2.5 mg base)/3 mL nebulization of breath or wheezing #540 mL soln bupropion HCl 150 mg 24 hr tablet, 300 mg PO DAILY Anx iety 11/04/23 11/04/23 History extended release guaifenesin 1,200 mg tablet, 1,200 mg PO BID PRN Mucus 11/04/23 11/04/23 History extended release 12 hr (Mucinex) pantoprazole 40 mg tablet,delayed 40 mg PO BID #0 tabs 11/12/23 Unknown Rx release prednisone 10 mg tablet 30 mg (3 x 10 mg) PO BREAKFA ST #0 11/12/23 Unknown Rx tabs famotidine 20 mg tablet 20 mg PO QHS 14 days #14 tab s 12/31/23 Unknown Rx sucralfate 1 gram tablet (Carafate) 1 g PO TID GASTRIC ULCERS 30 days 01/18/24 Unknown Rx #90 tabs doxycycline hyclate 100 mg capsule 100 mg PO BID 2 wee ks #28 caps 01/27/24 Unknown Rx gabapentin 300 mg capsule 300 mg PO TID PRN 02/11/24 U nknown History ropinirole 0.5 mg tablet 2 mg PO TID Restless legs Unknown History prednisone 10 mg tablet 10 mg PO DAILY COPD 90 days #90 03/31/24 Unknown Rx tabs metoprolol tartrate 50 mg tablet 25 mg PO BID 04/06/24 Unknown History Held on 04/06/24. Instructions: MD Ordered Allergy/AdvReac Type Severity Reaction Status Date / Time azithromycin (From Zithromax) Allergy Swelling Verified 04/09/24 20:31 Penicillins Allergy Hives Verified 04/09/24 20:31 shellfish derived Allergy Hives Verified 04/09/24 20:31 venom-honey bee (bee venom Allergy Hives Verified 04/09/24 20:31 (honey bee)) chocolate flavor AdvReac Intermediate Nausea/Vom/ Verified 04/09/24 20:31 Diarrhea Family History Other Asthma CAD (coronary artery disease) CVA (cerebral vascular accident) Cancer Diabetes Heart disease Hypertension Myocardial infarction Surgical History History of appendectomy Heart valve replaced History of hand surgery H/O neck surgery Social History (Updated 04/09/24 @ 21:19 by Radha Charles) household members: spouse housing: house Smoking Status: Current every day smoker tobacco type: cigarettes Tobacco: How many years used: 62 alcohol intake: current alcohol intake frequency: a few times a week Alcohol type: beer seatbelt use: always EXAM Physical Exam Const Vital Signs: 04/09/24 20:27 04/09/24 22:04 04/09/24 22:40 Temperature 97.8 F Temperature Source Oral Pulse Rate 112 H 111 H 109 H Respiratory Rate 27 H 18 20 H Respiratory Pattern Normal Blood Pressure 143/84 H 135/73 H Blood Pressure Mean 103 93 Pulse Ox 95 97 Oxygen Delivery Method Nasal Cannula Nasal Cannula Oxygen Flow Rate (L/min) 3 3 MDM MDM MDM Narrative Medical decision making narrative: HISTORY OF PRESENT ILLNESS: 74-year-old male history of remote appendectomy, CKD stage III, COPD chronically on 3 L nasal cannula, hypertension, tobacco use presents with abdominal pain. Notes began at 5 PM. He further states he is having trouble urinating. Feels that he cannot pee. He cannot remember last time he urinated. Thinks was this morning. Denies vomiting. Notes history of appendectomy. Denies diarrhea. Denies flank pain. REVIEW OF SYSTEMS: Pertinent positives: Abdominal pain, urinary retention Pertinent negatives: Vomiting, flank pain PHYSICAL EXAM: Nursing triage notes reviewed, Vital signs reviewed Constitutional: please see mdm HENT: MMM, nasal cannula in place Eyes: Pupils equal round and reactive to light, Extraocular muscles intact Neck: No stridor, no JVD, full neck ROM Lungs: Clear to auscultation, No wheezing or rales. No increased work of breathing, no conversational dyspnea, no accessory muscle use, no nasal flaring. No respiratory distress noted Heart: Regular rate and rhythm, No murmurs, No rubs and No gallops, 2+ distal pulses (radial, femoral, posterior tibial) in all extremities Abdomen: Exquisite tenderness throughout the belly mostly in the suprapubic region, but no rigidity, rebound or guarding, no obvious peritoneal signs, no palpable pulsatile abdominal masses, no auscultated abdominal bruit : No CVAT Extremities: No edema Neuro: No new focal neurological deficits, cranial nerves II through XII intact, 5/5 strength in all present extremities. Intact sensation to light touch in all present extremities, 2+ reflexes bilateral patella tendons. Skin: No rash or lesions noted MEDICAL DECISION MAKING: Chief Complaint: Abdominal pain External records reviewed: Reviewed prior imaging studies. Factors affecting care: As per HPI Social determinants of health: none History obtained from others: none Consults: General Surgery (Dr. Mendoza) -recommended transfer secondary to not having adequate personnel for postop care namely an packager hand, Radiology (Dr. Cesar), [facility] Transfer center, general surgery at [facility] (Dr. Allen) MDM Narrative: Patient was initially tachycardic at a rate of 112, tachypneic at a rate of 27, saturating well on his baseline 3 L by nasal cannula. Abdominal exam with suprapubic tenderness, fullness in the suprapubic region. I considered the following differential diagnosis: AAA, small bowel obstruction, abdominal perforation, appendicitis, pancreatitis, hepatobiliary pathology (acute cholecystitis), mesenteric ischemia, pathology (ie nephrolithiasis, pyelonephritis). I obtained a broad lab and imaging workup to further elucidate etiology of patient's complaint I initially treat the patient with 4 mg IV morphine, 4 mg IV Zofran Ordered bladder scan to assess signs of urinary retention. Bladder scan showed greater than 200 cc of urine (272 cc). Given patient rep orted not being able to pee placed a Braun catheter to alleviate retention. After Braun catheter was placed, present to 200 cc of urine out. Patient had some improvement in pain but still has significant abdominal tenderness I obtained a CT scan abdomen/pelvis at this time. I opted to do a noncontrast scan given the patient's history of CKD and prior GFR of only 34. ALL IMAGES (IF OBTAINED) HAVE BEEN PERSONALLY REVIEWED AND INTERPRETED BY MYSELF. Bladder scan shows 272 cc of urine CBC with no leukocytosis, mild anemia, no thrombocytopenia BMP with borderline hyperkalemia (hemolysis present, likely false positive), no sign of endorgan hypoperfusion given normal anion gap, no sign of metabolic acidosis given normal bicarb. CKD improved from prior study LFTs show no evidence of hepatobiliary pathology. Lipase is wnl indicating no pancreatic inflammation. CT scan abdomen pelvis was concerning for perforated viscus and colitis. Consulted surgery. 10:30 PM discussed concern for perforated viscus, pneumoperitoneum with Dr. Mendoza. Notes he wants to look at the CT scan and get back to me. 10:34 PM discussed with radiologist who reiterated there was a bowel perforation. 10:[address] Mendoza recommended transfer. His reasoning was the patient was medically complex and may require an packager hand to manage his postop course 10:54 PM discussed with transfer center. Will attempt to get their surgeon on the phone for conference. Discussed with Dr. Allen and [facility]. They refused accept the patient initially stating they did not feel was appropriate to transfer the patient for a potential complication given we have a surgeon on- call. 11:[address] Mendoza he is insistent that we do not have the facilities to care for the patient. He would like to discussed with [facility] further. I asked Dr. Mendoza if he would come in to see the patient. He did not give a direct answer as to if he would come evaluate the patient. He stated he would like to talk to the transfer center and get back to me. 11:53 PM discussed with [facility] ([facility]) who called into [facility] and apparently spoke to Dr. Mendoza. After this conversation [facility] Agreed to accept the patient under Dr. Ceron. Transfer form signed. He will be ED to ED transfer. Transport was arranged. 11:[address] Mendoza. WHo noted patient was accepted at [facility] for ED to ED transfer. 12:23 AM patient signed out to night physician pending transfer to [facility]. Transfer is expected between 2 and 3 AM. This time patient's vitals remained stable the blood pressure 135 or 73, heart rate is 109, he is afebrile. He just received a dose of Dilaudid and Toradol and was relatively comfortable. The patient and/or family, caregivers express understanding. The patient and/or family, caregivers agrees with the plan. Shared decision making: I will have a discussion with the patient and or visitors regarding risk/benefits of further testing or admission. They will be made aware of of the risk/benefits inherent in this decision they will be given the opportunity to voice understanding. Total critical care time today provided was at least 60 minutes. This excludes separately billable procedures. Critical care time (if documented) is secondary to the patient having high probability of clinically significant/life threatening deterioration in the patient's condition which required my urgent intervention. Impression: 1. Acute abdominal pain 2. History of CKD 3. Bowel perforation Dispo: Transfer to [facility] for definitive surgical evaluation This note was generated with [employer] dictation software. It may contain incorrect words, spelling, and punctuation that were not noted in review of the chart prior to signing. Lab Data Labs: Laboratory Results - last 24 hr 04/09/24 04/09/24 21:04 23:00 WBC 8.0 RBC 4.21 L Hgb 11.4 L Hct 38.9 L MCV 92.4 MCH 27.1 MCHC 29.3 L RDW Std Deviation 52.6 H RDW Coeff of Meek 15.6 H Plt Count 456 H MPV 9.5 Immature Gran % (Auto) 0.300 Neut % (Auto) 87.1 H Lymph % (Auto) 8.0 L Sharkey % (Auto) 3.4 Eos % (Auto) 0.9 Baso % (Auto) 0.3 Absolute Neuts (auto) 7.0 Absolute Lymphs (auto) 0.64 L Nucleated RBC % 0 Sodium 137 Potassium 5.2 H Chloride 103 Carbon Dioxide 28.0 Anion Gap 6 BUN 22 H Creatinine 1.68 H Estim Creat Clear Calc 37.44 Est GFR (MDRD) Af Amer 52 L Est GFR (MDRD) Non-Af 43 L BUN/Creatinine Ratio 13.1 Glucose 141 H Lactic Acid 1.6 Calcium 9.3 Total Bilirubin 0.70 AST 32 ALT 15 L Alkaline Phosphatase 76 Total Protein 6.7 Albumin 3.1 L Globulin 3.6 Albumin/Globulin Ratio 0.9 Lipase 11 L Urine Color Yellow Urine Clarity Clear Urine pH 6.0 Ur Specific [place] 1.020 Urine Protein 30 H Urine Glucose (UA) Normal Urine Ketones Negative Urine Occult Blood Negative Urine Nitrite Negative Urine Bilirubin Negative Urine Urobilinogen Normal Ur Leukocyte Esterase Negative Urine RBC 0 SEEN Urine WBC 0 SEEN Ur Squamous Epith Cells 0 SEEN Urine Bacteria 0 SEEN Urine Mucus 0 SEEN Radiography Diagnostic Testing: Clinical Impression(s) from Imaging Studies Abdomen/Pelvis CT 04/09/24 21:27 IMPRESSION: 1. Mild scattered ascites and pneumoperitoneum concerning for perforated viscus. 2. Mild multifocal wall thickening and pericolonic fat stranding about the descending colon concerning for colitis. Subtle hyperdense material along the left pericolic gutter peritoneum which may relate to colonic contrast extravasation. Please correlate. 3. Chronic/incidental findings as above. One or more dose reduction techniques were used (e.g., Automated exposure control, adjustment of the mA and/or kV according to patient size, use of iterative reconstruction technique). [facility] Chief Complaint: Abd Pain ED Provider: Edmundo Castro Dx/Rx/DC Orders Prescriptions: No Action folic acid 400 mcg tablet 0.4 mg PO DAILY (DME) PEP device See Rx Instructions .ROUTE .MEDSUPPLY Qty: 1 0RF Rx Instructions: with training cyanocobalamin (vitamin B-12) [Vitamin B-12] 100 mcg tablet 100 mcg PO DAILY Patient Comments: TAKE 1 TABLET BY MOUTH EVERY DAY aspirin 81 MG tablet,chewable 81 mg PO DAILY@0800 Patient Comments: [facility] budesonide-formoterol [Symbicort] 1 INHALER inhaler 2 puff PO BID Patient Comments: COPD apixaban 5 MG tablet 5 mg PO BID lisinopril 20 MG tablet 20 mg PO DAILY albuterol sulfate 18 GM HFA aerosol inhaler 2 puff inhalation Q4H PRN PRN (Reason: Sob &/Or Wheezing) pravastatin 10 mg tablet 10 mg PO QHS Patient Comments: TAKE 1 TABLET BY MOUTH EVERY DAY cholecalciferol (vitamin D3) [Vitamin D3] 25 mcg (1,000 unit) capsule 25 mcg PO DAILY docusate sodium 100 mg Capsule 100 mg PO BID Qty: 0 0RF amlodipine 2.5 mg Tablet 2.5 mg PO DAILY Qty: 0 0RF acetaminophen 500 mg Tablet 1,000 mg PO Q8 Qty: 0 0RF Patient Comments: Takes PRN doxycycline hyclate 100 mg capsule 100 mg PO BID 14 Days Qty: 28 0RF guaifenesin [Mucinex] 1,200 mg tablet extended release 12hr 1,200 mg PO BID PRN bupropion HCl 150 mg tablet extended release 24 hr 300 mg PO DAILY pantoprazole 40 mg Tablet,Delayed Release (Dr/Ec) 40 mg PO BID Qty: 0 0RF prednisone 10 mg tablet 30 mg PO BREAKFAST Qty: 0 0RF Rx Instructions: 3 tabs daily for 3 days then 2 tabs daily for 3 days then 1 tablet daily for 3 days then half tab daily for 4 days ropinirole 0.5 mg tablet 2 mg PO TID famotidine 20 mg tablet 20 mg PO QHS 14 Days Qty: 14 0RF metoprolol tartrate 50 mg tablet 25 mg PO BID ipratropium-albuterol 0.5 mg-3 mg(2.5 mg base)/3 mL solution for nebulization 3 ml inhalation Q4H PRN (Reason: shortness of breath or wheezing) Qty: 540 3RF sucralfate [Carafate] 1 gram tablet 1 g PO TID 30 Days Qty: 90 2RF prednisone 10 mg tablet 10 mg PO DAILY 90 Days Qty: 90 3RF Primary Care Provider: Cherelle Cutler Referrals: Cherelle Cutler DO [Primary Care Provider] - Print Language: Moroccan
--- NOTE | 2024-04-09 20:46 | EKG12_ITS ---
Test Reason : DYSRHYTHMIA Blood Pressure : */* mmHG Vent. Rate : 100 BPM Atrial Rate : 100 BPM P-R Int : 172 ms QRS Dur : 94 ms QT Int : 364 ms P-R-T Axes : 71 59 70 degrees QTcB Int : 469 ms Normal sinus rhythm Incomplete right bundle branch block Borderline ECG Confirmed by Julian Booker ([id number]), sports editor ANDREW VALDEZ ([id number]) on 04/11/2024 10:20:04 AM Referred By: Edmundo Castro Confirmed By: Julian Booker
[2024-04-09] MEDS: Morphine 4 MG/ML Syringe IV (21:02)
[2024-04-09] MEDS: Ondansetron 4 MG/2 ML Vial IV (21:02)
[2024-04-09] MEDS: 0.9% Normal Saline (500mL Bag) 500 ML 999 ML IV (21:09)
[2024-04-09 21:18] LABS: Bacteria 0 SEEN /hpf (None Seen); Mucous, Urine 0 SEEN /hpf (<or=2+); Squamous Epithelial Cells - UA 0 SEEN /hpf (0-5); White Blood Cells 0 SEEN /hpf (0-5)
[2024-04-09 21:25] LABS: Absolute Lymphocyte Count 0.64 X10^3/uL (0.83-4.51); Basophil# 0.02 X10^3/uL; Basophil% 0.3 % (0-1); Eosinophil# 0.07 X10^3/uL; Eosinophils% 0.9 % (0-5); Hematocrit 38.9 % (40-54); Hemoglobin 11.4 g/dL (13.0-16.5); Lymphocyte # 0.64 X10^3/ul (0.83-4.51); Mean Corp Hgb Conc 29.3 g/dL (32-36); Mean Corpuscular Hgb 27.1 pg (27.0-32.0); Mean Corpuscular Volume 92.4 fL (80-94); Mean Platelet Vol. 9.5 fl (6.2-12.0); Monocyte# 0.27 X10^3/uL; Monocyte% 3.4 % (0-10); NRBC Flagged by Analyzer 0 % (0-5); Neutrophil # 6.97 X10^3/uL (2.7-7.7); Neutrophil % 87.1 % (47-70); Platelet Count 456 K/mm3 (150-450); RBC Distribution Width CV 15.6 % (11.6-14.6); RBC Distribution Width SD 52.6 fl (35.1-43.9); Red Blood Count 4.21 M/mm3 (4.6-6.2)
--- NOTE | 2024-04-09 21:27 | CT_ITS ---
PROCEDURE: CT abdomen pelvis without IV contrast REASON FOR EXAM: Pain TECHNIQUE: Multiple contiguous axial images of the abdomen and pelvis were obtained without the administration of intravenous contrast. Two-dimensional coronal and sagittal reformatted images were reconstructed. Low-dose imaging technique was utilized. COMPARISON: 03/02/2024 FINDINGS: Severe bibasilar emphysema. Unenhanced liver, spleen, pancreas and adrenal glands are intact. Gallbladder sludge. No secondary signs of acute cholecystitis or biliary ductal dilation. No renal calculi or hydronephrosis. Urinary bladder is decompressed and contains a Braun catheter. Moderate fecal retention. Several short segments of wall thickening and pericolonic inflammatory changes involving the descending colon concerning for acute colitis. Subtle hyperdense material along the left pericolic gutter which could relate to areas of contrast extravasation if oral contrast was recently administered. Mild scattered ascites. Mild pneumoperitoneum. No bowel obstruction. Calcified nonaneurysmal abdominal aorta. No bulky adenopathy. No acute osseous abnormality. Multilevel degenerative changes of the spine. 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 CT/Abdomen/Pelvis without Cont IMPRESSION: 1. Mild scattered ascites and pneumoperitoneum concerning for perforated viscus . 2. Mild multifocal wall thickening and pericolonic fat stranding about the desc ending colon concerning for colitis. Subtle hyperdense material along the left pericolic gutter peritoneum which may relate to colonic contrast extravasation. Please correlate. 3. Chronic/incidental findings as above. One or more dose reduction techniques were used (e.g., Automated exposure contr ol, adjustment of the mA and/or kV according to patient size, use of iterative reconstruction technique). Reading Location: [facility]
[2024-04-09 21:37] LABS: Color, Urine Yellow (Yellow); Glucose, Dipstick Normal (Normal); Ketone-Dipstick Negative (Negative); Leukocyte Esterase-Dipstick Negative /ul (Negative); Nitrite-Dipstick Negative (Negative); Occult Blood-Urine Negative /ul (Negative); Protein-Dipstick 30 mg/dl (Negative); Urine Bilirubin Dipstick Negative (Negative); Urine Clarity Clear (Clear); Urine Urobilinogen Normal (Normal)
[2024-04-09 21:43] LABS: Red Blood Cells-Urine 0 SEEN /hpf (0-5)
[2024-04-09 21:44] LABS: ALB/GLOB Ratio 0.9 RATIO (0.9-2.4); AST(SGOT) 32 U/L (15-37); Alanine Aminotransfer ALT/SGPT 15 U/L (16-61); Albumin, Serum 3.1 g/dL (3.2-5.0); Alkaline Phosphatase 76 U/L (45-117); Anion Gap 6 (5-15); BUN 22 mg/dL (7-18); BUN/Creat Ratio 13.1 RATIO (10-20); Calcium,Total 9.3 mg/dL (8.5-10.1); Chloride 103 mmol/L (98-107); Creatinine, Serum 1.68 mg/dL (0.70-1.30); EST Glomerular Filtration Rate 43 mL/min (>60); Est Glom Filt Rate - Afr Amer 52 mL/min (>60); Estimated Creatinine Clearance 37.44 ml/min; Globulin 3.6 g/dL (2.2-4.2); Glucose 141 mg/dL (74-106); Lipase 11 U/L (73-393); Potassium 5.2 mmol/L (3.5-5.1); Protein, Total 6.7 g/dL (6.4-8.2); Sodium Level 137 mmol/L (136-145)
[2024-04-09 22:04] VITALS: PULSE 111; RESP 18
[2024-04-09] MEDS: Ipratropium/Albuterol Sulfate 3 ML AMPUL.NEB INHALATION (22:04)
[2024-04-09] MEDS: metroNIDAZOLE 500 MG/100 ML BAG 100 MG IV (22:39)
[2024-04-09 22:40] VITALS: BP 135/73; PULSE 109; RESP 20; O2SAT 97
[2024-04-09 23:40] LABS: Lactic Acid 1.6 mmol/L (0.4-1.9)
[2024-04-10] VITALS: BP 121/73; PULSE 111; RESP 15
[2024-04-10] MEDS: Ciprofloxacin 400 MG/200 ML BAG 200 MG IV (00:20)
[2024-04-10] MEDS: Ketorolac 15 MG/ML Vial IV (00:32)
[2024-04-10] MEDS: HYDROmorphone 0.5 MG/0.5 ML SYRINGE IV (00:33)
[2024-04-10 01:40] VITALS: BP 121/73; PULSE 111; RESP 15; TEMP 36.6; O2SAT 97
--- NOTE | 2024-04-10 01:40 | ED.RN ---
given updated via phone
--- NOTE | 2024-04-10 01:51 | ED.RN ---
Report called to Aiden Gaspar
[2024-04-10 02:00] VITALS: BP 122/79; PULSE 109; RESP 17; O2SAT 96
[2024-04-10] MEDS: 0.9% Normal Saline (1000mL) 1,000 ML 150 ML IV (02:14)
== END 2024-04-10 03:03 | disposition short-term general hospital (02) ==
LOC: ED 21:32
PROVIDERS: Emergency Provider Emergency Medicine; PCP Family Medicine; Referring Provider Emergency Medicine; Visit Provider Emergency Medicine
DX: R10.9 Unspecified abdominal pain (principal); K63.1 Perforation of intestine (nontraumatic); J44.9 Chronic obstructive pulmonary disease, unspecified; N18.32 Chronic kidney disease, stage 3b; F17.210 Nicotine dependence, cigarettes, uncomplicated; I12.9 Hypertensive chronic kidney disease with stage 1 through stage 4 chronic kidney disease, or unspecified chronic kidney disease; Z79.82 Long term (current) use of aspirin; Z79.51 Long term (current) use of inhaled steroids; Z79.899 Other long term (current) drug therapy; F32.A Depression, unspecified; Z90.49 Acquired absence of other specified parts of digestive tract
CPT/HCPCS: 36415; 51702; 74176; 80053; 81001; 83605; 83690; 85025; 93005; 94640; 96361; 96365; 96366; 96368; 96375; 99285; A4216; J0744; J2405